=== PATIENT | male | born 1960 | race Caucasian/White ===

== ENCOUNTER 2023-11-03 14:34 | Emergency (ER) | payer SELFPAY ==
[2023-11-03 14:48] VITALS: BP 157/88; PULSE 84; RESP 16; TEMP 36.9; O2SAT 98
[2023-11-03 14:51] VITALS: BP 157/88; PULSE 84; RESP 16; TEMP 36.9; O2SAT 98
--- NOTE | 2023-11-03 15:11 | ED.GENADULT ---
HPI - General Adult General Chief complaint: Recheck/Abnormal Lab/Rx Stated complaint: Medication refill Time Seen by Provider: 11/03/23 15:08 Source: patient and RN notes reviewed Mode of arrival: ambulatory Limitations: no limitations History of Present Illness HPI narrative: Patient presents today requesting refills on his hydrochlorothiazide and lisinopril. States he has been out of his hydrochlorothiazide for 1 week and he has 2 more weeks of his lisinopril. States he has been let go from his PCPs office because they said he missed an appointment, but he states he did not as it was canceled by the office. He needs to find a new PCPs office, which he is trying to. Related Data Home Medications Medication Instructions Recorded Confirmed amlodipine 10 mg tablet mg 11/03/23 hydrochlorothiazide 25 mg tablet mg 11/03/23 lisinopril 40 mg tablet mg 11/03/23 Allergies Allergy/AdvReac Type Severity Reaction Status Date / Time cephalexin Allergy Intermediate HIVES Verified 11/03/23 14:49 Review of Systems Review of Systems: CONSTITUTIONAL: Denies body aches, fever, chills, or sweats. EYES: Denies visual changes, redness, or discharge. ENT: Denies rhinorrhea, congestion, sore throat, or otalgia. CARDIOVASCULAR: Denies chest pain, palpitations, or edema. RESPIRATORY: Denies cough or dyspnea. GASTROINTESTINAL: Denies abdominal pain, nausea, vomiting, or diarrhea. GENITOURINARY: Denies dysuria or hematuria. SKIN: Denies rash, itching, or wounds. MUSCULOSKELETAL: Denies back pain, joint pain, or myalgia. NEUROLOGIC: Denies headache, numbness, tingling, or weakness. PSYCH: Denies depression or anxiety. [facility] Past Medical History Medical History (Updated 11/03/23 @ 15:16 by Claudia Rick, [facility], ) Hypertension Comments At time of signature, I have reviewed and agree with nursing past medical, surgical, social and family history unless otherwise noted. Please see nursing chart for further information. There is no relevant family history pertinent to the presenting complaint Exam Narrative: GENERAL: Well-appearing, well-nourished, and in no acute distress. HEAD: Normocephalic, atraumatic. EYES: EOMI. No redness or drainage. Conjunctivae normal. ENT: Mucous membranes pink and moist. NECK: Normal AROM. CHEST: No respiratory distress. EXTREMITIES: Normal range of motion. No edema. SKIN: Warm, dry, no rash. Capillary refill normal. Normal skin turgor. NEURO: No focal deficits. Alert and oriented x3. Gait steady. PSYCH: Normal affect. No signs of depression or anxiety. Course Course Level of Care: Express Care Visit Vital Signs Vital signs: Vital Signs Temperature 98.4 F 11/03/23 14:48 Pulse Rate 84 11/03/23 14:48 Respiratory Rate 16 11/03/23 14:48 Blood Pressure 157/88 H 11/03/23 14:48 Pulse Oximetry 98 11/03/23 14:48 Oxygen Delivery Room Air 11/03/23 14:48 Temperature 98.4 F 11/03/23 14:51 Pulse Rate 84 11/03/23 14:51 Respiratory Rate 16 11/03/23 14:51 Blood Pressure 157/88 H 11/03/23 14:51 Pulse Oximetry 98 11/03/23 14:51 Oxygen Delivery Room Air 11/03/23 14:51 Reviewed Medical Decision Making MDM Narrative Medical decision making narrative: Will give patient refills of his hydrochlorothiazide lisinopril. States he is searching for any PCP, and will likely make an appointment with a doctor his son sees. Differential Diagnosis Differential Diagnosis: Hypertension, medication refill Vital Signs Vital Signs: Vital Signs Temperature 98.4 F 11/03/23 14:48 Pulse Rate 84 11/03/23 14:48 Respiratory Rate 16 11/03/23 14:48 Blood Pressure 157/88 H 11/03/23 14:48 Pulse Oximetry 98 11/03/23 14:48 Oxygen Delivery Room Air 11/03/23 14:48 Temperature 98.4 F 11/03/23 14:51 Pulse Rate 84 11/03/23 14:51 Respiratory Rate 16 11/03/23 14:51 Blood Pressure 157/88 H 11/03/23 14:51 Pulse Oximetry 98 11/03/23 1
== END 2023-11-03 15:21 | disposition home or self-care (01) ==
PROVIDERS: Emergency Provider Nurse Practitioner
DX: Z76.0 Encounter for issue of repeat prescription (principal); I10 Essential (primary) hypertension; Z79.899 Other long term (current) drug therapy
CPT/HCPCS: 99211; G0463

== ENCOUNTER 2023-12-22 12:42 | Emergency (ER) | payer BC, SELFPAY ==
[2023-12-22 12:54] VITALS: BP 141/95; PULSE 97; RESP 16; TEMP 37.2; O2SAT 97
--- NOTE | 2023-12-22 12:59 | ED.GENADULT ---
HPI - General Adult General Chief complaint: Unspecified Stated complaint: medication refill Time Seen by Provider: 12/22/23 12:59 Source: patient Mode of arrival: ambulatory Limitations: no limitations History of Present Illness HPI narrative: 63 yo M here for medication refill. Needs his BP meds refilled. Has appt with new provider in December, Sharmin Varela. No chest pain or shortness of breath today. All systems reviewed and negative except as noted above. Related Data Home Medications Medication Instructions Recorded Confirmed amlodipine 10 mg tablet 10 mg PO DAILY 12/22/23 12/22/23 Allergies Allergy/AdvReac Type Severity Reaction Status Date / Time cephalexin Allergy Intermediate HIVES Verified 12/22/23 12:52 Review of Systems Review of Systems: CONSTITUTIONAL: Denies fever, chills, or sweats. EYES: Denies visual changes, redness, or discharge. ENT: Denies rhinorrhea, congestion, sore throat, or otalgia. CARDIOVASCULAR: Denies chest pain, palpitations, or edema. RESPIRATORY: Denies cough or dyspnea. GASTROINTESTINAL: Denies abdominal pain, nausea, vomiting, or diarrhea. GENITOURINARY: Denies dysuria or hematuria. SKIN: Denies rash or itching. MUSCULOSKELETAL: Denies back pain, joint pain, or myalgia. NEUROLOGIC: Denies headache, numbness, or weakness. PSYCHIATRIC: Denies anxiety or depression. All other systems reviewed are negative, except as documented in HPI. [facility] Past Medical History Medical History (Updated 12/22/23 @ 13:02 by Juju Stewart NP) Hypertension Comments At time of signature, agree with nursing past medical, surgical, social and family history. There is no relevant family history pertinent to the presenting complaint. Exam Narrative: GENERAL: This is a well-nourished, well-developed patient, in no apparent distress. HEAD: normocephalic, atraumatic. EYES: PERRL. Sclera clear/white. Vision is grossly intact. EARS: External ears normal NOSE: External nose normal NECK: Neck supple, non-tender without lymphadenopathy, masses or thyromegaly. CARDIOVASCULAR: Regular rate and rhythm without murmurs, gallops, or rubs. RESPIRATORY: Clear to auscultation. Breath sounds equal bilaterally. No wheezes, rales, or rhonchi. SKIN: warm, Dry, intact with no suspicious lesions or rash, good texture and turgor. NEURO: awake, alert, and oriented to person, place and time. There were no obvious focal neurologic abnormalities. EXTREMITIES: No joint tenderness, effusion, or edema noted. Course Course Level of Care: Express Care Visit Vital Signs Vital signs: Vital Signs Temperature 37.2 C 12/22/23 12:54 Pulse Rate 97 12/22/23 12:54 Respiratory Rate 16 12/22/23 12:54 Blood Pressure 141/95 H 12/22/23 12:54 Pulse Oximetry 97 12/22/23 12:54 Oxygen Delivery Room Air 12/22/23 12:54 Temperature 37.2 C 12/22/23 12:54 Pulse Rate 97 12/22/23 12:54 Respiratory Rate 16 12/22/23 12:54 Blood Pressure 141/95 H 12/22/23 12:54 Pulse Oximetry 97 12/22/23 12:54 Oxygen Delivery Room Air 12/22/23 12:54 reviewed Medical Decision Making MDM Narrative Medical decision making narrative: Patient is aware of diagnosis, understands and agrees to treatment plan. Anticipatory guidance given. Patient agrees to follow-up as directed and is aware of reasons to seek care at the emergency department. Portions of this record may have been created with voice recognition software Vital Signs Vital Signs: Vital Signs Temperature 37.2 C 12/22/23 12:54 Pulse Rate 97 12/22/23 12:54 Respiratory Rate 16 12/22/23 12:54 Blood Pressure 141/95 H 12/22/23 12:54 Pulse Oximetry 97 12/22/23 12:54 Oxygen Delivery Room Air 12/22/23 12:54 Temperature 37.2 C 12/22/23 12:54 Pulse Rate 97 12/22/23 12:54 Respiratory Rate 16 12/22/23 12:54 Blood Pressure 141/95 H 12/22/23 12:54 Pulse Oximetry 97 12/22/23 12:54 Oxygen Deli
== END 2023-12-22 13:06 | disposition home or self-care (01) ==
PROVIDERS: Emergency Provider Nurse Practitioner Family
DX: I10 Essential (primary) hypertension (principal)
CPT/HCPCS: 99211; G0463

== ENCOUNTER 2024-01-20 14:00 | Emergency (ER) | payer BC, SELFPAY ==
[2024-01-20 14:18] VITALS: BP 118/56; PULSE 81; RESP 16; TEMP 36.8; O2SAT 97
--- NOTE | 2024-01-20 14:45 | ED.GENADULT ---
HPI - General Adult General Chief complaint: Unspecified Stated complaint: High Blood Pressure Time Seen by Provider: 01/20/24 14:45 Source: patient Mode of arrival: ambulatory Limitations: no limitations History of Present Illness HPI narrative: 63-year-old male presents needing medication refilled. Patient has appointment with new primary care provider March 19. Patient has been here in the past for medication refills. Patient is having no complaints today. Denies headache, chest pain and shortness of breath. All systems reviewed and negative except as noted above. Related Data Home Medications Medication Instructions Recorded Confirmed amlodipine 10 mg tablet 10 mg PO DAILY 12/22/23 12/22/23 Allergies Allergy/AdvReac Type Severity Reaction Status Date / Time cephalexin Allergy Intermediate HIVES Verified 12/22/23 12:52 Review of Systems Review of Systems: CONSTITUTIONAL: Denies fever, chills, or sweats. EYES: Denies visual changes, redness, or discharge. ENT: Denies rhinorrhea, congestion, sore throat, or otalgia. CARDIOVASCULAR: Denies chest pain, palpitations, or edema. RESPIRATORY: Denies cough or dyspnea. GASTROINTESTINAL: Denies abdominal pain, nausea, vomiting, or diarrhea. GENITOURINARY: Denies dysuria or hematuria. SKIN: Denies rash or itching. MUSCULOSKELETAL: Denies back pain, joint pain, or myalgia. NEUROLOGIC: Denies headache, numbness, or weakness. PSYCHIATRIC: Denies anxiety or depression. All other systems reviewed are negative, except as documented in HPI. [facility] Past Medical History Medical History (Updated 01/20/24 @ 14:50 by Juju Stewart NP) Hypertension Comments At time of signature, agree with nursing past medical, surgical, social and family history. There is no relevant family history pertinent to the presenting complaint. Exam Narrative: GENERAL: This is a well-nourished, well-developed patient, in no apparent distress. HEAD: normocephalic, atraumatic. EYES: PERRL. Sclera clear/white. Vision is grossly intact. EARS: External ears normal NOSE: External nose normal NECK: Neck supple, non-tender without lymphadenopathy, masses or thyromegaly. CARDIOVASCULAR: Regular rate and rhythm without murmurs, gallops, or rubs. RESPIRATORY: Clear to auscultation. Breath sounds equal bilaterally. No wheezes, rales, or rhonchi. SKIN: warm, Dry, intact with no suspicious lesions or rash, good texture and turgor. NEURO: awake, alert, and oriented to person, place and time. There were no obvious focal neurologic abnormalities. EXTREMITIES: No joint tenderness, effusion, or edema noted. Course Course Level of Care: Express Care Visit Vital Signs Vital signs: Vital Signs Temperature 36.8 C 01/20/24 14:18 Pulse Rate 81 01/20/24 14:18 Respiratory Rate 16 01/20/24 14:18 Blood Pressure 118/56 L 01/20/24 14:18 Pulse Oximetry 97 01/20/24 14:18 Oxygen Delivery Room Air 01/20/24 14:18 Temperature 36.8 C 01/20/24 14:18 Pulse Rate 81 01/20/24 14:18 Respiratory Rate 16 01/20/24 14:18 Blood Pressure 118/56 L 01/20/24 14:18 Pulse Oximetry 97 01/20/24 14:18 Oxygen Delivery Room Air 01/20/24 14:18 Reviewed Medical Decision Making MDM Narrative Medical decision making narrative: Patient is aware of diagnosis, understands and agrees to treatment plan. Anticipatory guidance given. Patient agrees to follow-up as directed and is aware of reasons to seek care at the emergency department. Portions of this record may have been created with voice recognition software Vital Signs Vital Signs: Vital Signs Temperature 36.8 C 01/20/24 14:18 Pulse Rate 81 01/20/24 14:18 Respiratory Rate 16 01/20/24 14:18 Blood Pressure 118/56 L 01/20/24 14:18 Pulse Oximetry 97 01/20/24 14:18 Oxygen Delivery Room Air 01/20/24 14:18 Temperature 36.8 C 01/20/24 14:18 Pulse Rate 81 01/20/24 14:18 Respiratory Ra
== END 2024-01-20 14:56 | disposition home or self-care (01) ==
PROVIDERS: Emergency Provider Nurse Practitioner Family
DX: I10 Essential (primary) hypertension (principal); Z76.0 Encounter for issue of repeat prescription
CPT/HCPCS: 99211; 99213; G0463

== ENCOUNTER 2024-12-09 11:40 | Emergency (ER) | payer SELFPAY ==
--- NOTE | ~2024-12-09 | XR_ITS ---
XR chest 2V Ordering provider: Laurence Reyes APRN History: 64 years Male with . cough, SOB, x 3 weeks . Comparison: July 23, 2016 FINDINGS: MEDIASTINUM: The cardiac silhouette is not enlarged. LUNGS: No effusions or pneumothorax. Prominent bronchovascular markings in the lower lobes with minim al opacification in the left perihilar and both lower lobes suggestive of pneumonia. OTHER: No free air under the diaphragm. IMPRESSION: Highly suggestive left perihilar and both lower lobe pneumonia. Follow-up advised. Reviewed, dictated and finalized at location A. ETIC ADVISOR IMPRESSION: Highly suggestive left perihilar and both lower lobe pneumonia. Follow-up advis ed.
--- NOTE | 2024-12-09 11:43 | ED_ITS ---
HPI - URI/Sore Throat General Chief Complaint: Shortness of Breath/Dyspnea Stated Complaint: SOB Time Seen by Provider: 12/09/24 11:41 Source: patient Mode of arrival: ambulatory Limitations: no limitations History of Present Illness HPI Narrative: Patient is a 64-year-old male who presents with 3 weeks of cough and shortness of breath with exertion. Patient states he is a regular every day smoker, a pack a day. However patient states the last few days he has not been able to smoke due to shortness of breath. Denies any fever, chills, nausea, vomiting, diarrhea. Related Data Home Medications ?Medication ?Instructions ?Recorded ?Confirmed ?Last Taken ?Type amlodipine 10 mg tablet 10 mg PO DAILY 12/22/23 12/22/23 Unknown History Allergies Allergy/AdvReac Type Severity Reaction Status Date / Time cephalexin Allergy Intermediate HIVES Verified 12/22/23 12:52 Review of Systems Review of Systems: All systems reviewed & are unremarkable except as noted in HPI and below Constitutional: Constitutional: Denies body ache(s), Denies chills, Denies fatigue, Denies fever(s), Denies headache(s), Denies malaise and Denies weakness Eyes: Eyes: Denies blurry vision, Denies itchy eyes and Denies loss of vision ENT: Denies otalgia, Denies headache(s), Reports nasal congestion, Denies sinus pain and Denies sore throat Cardiovascular: Cardiovascular: Denies chest pain, Denies irregular heart rhythm and Denies dyspnea Respiratory: Respiratory: Reports cough and Denies dyspnea Gastrointestinal: Gastrointestinal: Denies abdominal pain, Denies diarrhea, Denies nausea and Denies vomiting Musculoskeletal: Musculoskeletal: Denies back pain, Denies myalgias and Denies arthralgias Integumentary/Breasts: Skin/Breast: Denies pruritus and Denies rash Neurologic: Denies headache(s), Denies loss of vision and Denies weakness Psychiatric: Psychiatric: Reports no additional psychiatric complaints Endocrine: Endocrine: Denies fatigue Allergic/Immunologic: Allergic/Immunologic: Denies itchy eyes PMFSH Past Medical History Medical History (Updated 12/09/24 @ 13:34 by Laurence Reyes, [facility]) Hypertension Comments At time of signature, agree with nursing past medical, surgical, social and family history. There is no relevant family history pertinent to the presenting complaint. Exam Const: General: cooperative, acute distress mild and respiratory, ill appearing acutely, poor hygiene, well nourished and thin; No confusion Nutritional Appearance: thin Orientation/consciousness: patient oriented x3 Limitations: no limitations HENMT: Head: normal to inspection, normocephalic and atraumatic Ears: hearing grossly normal bilaterally, external ears normal, TM's normal bilaterally, EAC's normal and no periauricular adenopathy Face/Nose/Sinus: Normal external nose present, Abnormal mucous membranes and turbinates present erythematous bilateral and diffuse, normal facial exam, sinuses nontender and face symmetric Face and sinus: normal facial exam, sinuses nontender and face symmetric Mouth: Yes Normal oral and palatal mucosa present, Yes lip normal, Yes tongue normal, Yes Normal salivary glands and ducts present, Yes oropharynx normal and Yes moist mucous membranes Teeth and gingiva: dentition normal Throat: posterior oropharynx normal, tonsils normal and uvula midline Eyes: General: appearance normal, both eyes and all related structures Alignment and Position: alignment normal and position normal Periorbital: periorbital findings normal Eyelids: eyelids normal Pupils: Equal, round and reactive pupils present Neck: Neck: normal visual inspection, full ROM, no lymphadenopathy and supple Chest: Chest palpation & inspection: normal inspection of the chest and normal palpation of entire chest wall Resp: Effort & Inspection: normal respiratory effort, able to speak in co mplete sentences and tachypneic Auscultation: crackles (Course) bilateral in the lower lung simons, no rales, no rhonchi and no wheezes Cardio: Rate: tachycardic Rhythm: regular rhythm Heart sounds: S1 normal heart sound present and S2 normal heart sound present GI: Inspection: normal to inspection Skin: General skin exam: normal color and no rashes or lesions noted Neuro: General: patient oriented x3 and moves all extremities Cranial nerves: Yes Equal, round and reactive pupils present Speech: normal speech Gait exam (Neuro): Normal gait present Extrem: General: normal to inspection, full ROM and no edema Psych: Appearance: grossly normal and well kempt Mental Status: mental st atus grossly normal Speech and movement: Normal speech and movement present Affect: normal affect Attitude: cooperative Thought process: Normal thought process present Course Course Emergency Course: Discharge instructions reviewed with patient, as well as provided in writing per nursing staff. The instructions also include specific and strict return/GO TO THE ER as well as f/u information. All questions have been answered, and the patient deny any further questions with discharge and discharge plan. Portions of this record may have been created with voice recognition software Level of Care: Express Care Visit Reevaluation(s) Reevaluation #1: Re-evaluation after breathing treatment and steroids. Patient is still short of breath with exertion recovers quickly upon rest. Reiterated going to the emergency department if patient is not improving Date: 12/09/24 Time: 13:31 Vital Signs Vital signs: Vital Signs Temperature 37.2 C 12/09/24 11:44 Pulse Rate 105 H 12/09/24 11:44 Respiratory Rate 28 H 12/09/24 11:44 Blood Pressure 126/83 12/09/24 11:44 Pulse Oximetry 91 12/09/24 11:44 Oxygen Delivery Room Air 12/09/24 11:44 Temperature 37.2 C 12/09/24 11:44 Pulse Rate 105 H 12/09/24 11:44 Respiratory Rate 28 H 12/09/24 11:44 Blood Pressure 126/83 12/09/24 11:44 Pulse Oximetry 91 12/09/24 11:44 Oxygen Delivery Room Air 12/09/24 11:44 Reviewed MDM - URI/Sore Throat MDM Narrative Medical decision making narrative: Discussed diagnosis of pneumonia with patient and son. Based on patient's shortness of breath on exertion discussed transfer to hospital. Patient refuses transfer at this time but does state if symptoms worsen he will not hesitate to go to the ER. Son is in agreement and states he will make patient a PCP appoi ntment for this week for follow-up. Patient to receive breathing treatment and IM steroids prior to discharge. Patient to be sent home on dual coverage antibiotics, steroids and inhaler. Discussed nebulizer with son, son is unsure if they have 1 at home. Patient was also given an incentive spirometer to help him take deep breaths. The patient is stable at time of discharge the clinical impression was discussed and the patient was given the opportunity to ask questions, which were addressed as completely as possible given the information available at present. Anticipatory guidance and return to care precautions were discussed and the importance of primary care follow-up was stressed and encouraged. The patient voiced understanding of the plan, indications to return, and the need for follow-up. Differential diagnosis considered: Pneumonia, Mckoy virus, strep pharyngitis, allergic rhinitis, upper respiratory tract infection, sinusitis, rhinosinusitis, nasopharyngitis. viral pharyngitis, otitis media, otitis externa, otitis effusion, foreign body, cerumen impaction, viral syndrome, and influenza.? Exam findings show no acute concerns or changes; patient is non-toxic appearing and is in no distress.? Patient is appropriate for outpatient treatment and follow- up.? Medical Records Attestation: I reviewed the patient's medical records. Lab Data Attestation: I reviewed the patient's lab results. Labs: Lab Results 12/09/24 Range/Units 11:53 POC Urine Color Dark POC Urine Clarity Clear POC Urine pH 5.5 POC Ur Specif [employer] 1.020 POC Urine Protein 2+ (Negative) POC Ur Glucose (UA) Negative (Negative) POC Urine Ketones Trace (Negative) POC Urine Blood Negative (Negative) POC Urine Nitrite Negative (Negative) POC Urine Bilirubin 1+ (Negative) POC Urine Urobilinogen 2.0 POC U Leukocyte Esteras Negative (Negative) POC Influenza A Ag Negative (Negative) POC Influenza B Ag Negative (Negative) POC SARS CoV-2 Ag Negative (Negative) Imaging Data Radiologist's impression: XR chest 2V Ordering provider: Laurence Reyes APRN History: 64 years Male with . cough, SOB, x 3 weeks . Comparison: July 23, 2016 FINDINGS: MEDIASTINUM: The cardiac silhouette is not enlarged. LUNGS: No effusions or pneumothorax. Prominent bronchovascular markings in the lower lobes with minimal opacification in the left perihilar and both lower lobes suggestive of pneumonia. OTHER: No free air under the diaphragm. IMPRESSION: Highly suggestive left perihilar and both lower lobe pneumonia. Follow-up advised. Discharge Plan Discharge Clinical Impression: Pneumonia Qualifiers: Pneumonia type: due to unspecified organism Laterality: bilateral Lung location: lower lobe of lung Qualified Code(s): J18.9 - Pneumonia, unspecified organism Patient Disposition: Home, Self-Care Condition: Stable Instructions: Pneumonia (ED) Additional Instructions: Pneumonia is a lung infection that can cause a fever, cough, and trouble breathing. Please continue all antibiotics as directed until complete. Take steroids in the morning with food. Use albuterol inhaler regularly. Nutrition is important - eat small frequent meals. Get lots of rest and drink fluids. Alternate Tylenol and ibuprofen for fever. Tylenol 650-1000mg by mouth every 4-6 hours. Do not exceed 4000mg in 24 hours. Advil (Ibuprofen) 600 mg by mouth every 6 hours. Do not exceed 2400mg in 24 hours. Call your Primary Care Doctor and make a follow-up appointment in 3 days. If your cough worsens, you develop a fever greater than 103, you develop shaking chills, a fast heartbeat, trouble breathing and/or feel you are are breathing much faster than usual, call your Primary Care Doctor or go to the ER. Make sure you wash your hands frequently. Patient Language: Maldivian Prescriptions: New azithromycin 250 mg tablet See Rx Instructions .ROUTE .COMPLEX Qty: 6 0RF Rx Instructions: For 250 mg dose pack: take 500 mg today (day 1), then 250 mg for 4 days (days 2-5) prednisone 20 mg tablet 40 mg PO DAILY 5 Days Qty: 10 0RF amoxicillin 875 mg tablet 875 mg PO Q12H 10 Days Qty: 20 0RF albuterol sulfate 90 mcg/actuation HFA aerosol inhaler 2 puff inhalation QID PRN (Reason: shortness of breath or wheezing) Qty: 6.7 0RF (DME) Aerochamber MV Spacer See Rx Instructions .Route Qty: 1 0RF Rx Instructions: As directed No Action amlodipine 10 mg tablet 10 mg PO DAILY amlodipine 10 mg tablet 10 mg PO DAILY 30 Days Qty: 30 0RF lisinopril 40 mg tablet 40 mg PO DAILY 30 Days Qty: 30 0RF hydrochlorothiazide 25 mg tablet 25 mg PO DAILY 30 Days Qty: 30 0RF hydrochlorothiazide 25 mg tablet 25 mg PO DAILY Qty: 30 0RF lisinopril 40 mg tablet 40 mg PO DAILY Qty: 30 0RF amlodipine 10 mg tablet 10 mg PO DAILY 60 Days Qty: 60 0RF hydrochlorothiazide 25 mg tablet 25 mg PO DAILY 60 Days Qty: 60 0RF lisinopril 40 mg tablet 40 mg PO DAILY 60 Days Qty: 60 0RF Follow-up/Referrals: Nichole,TAWNYA Dasilva [Primary Care Provider] - 3 Days Time of Disposition: 13:38
[2024-12-09 11:44] VITALS: BP 126/83; PULSE 105; RESP 28; TEMP 37.2; O2SAT 91
[2024-12-09 12:13] LABS: EDCOVIDSCREEN Negative (Negative); EDINFLUASCREEN Negative (Negative); EDINFLUBSCREEN Negative (Negative)
[2024-12-09 12:50] LABS: EDUAAPPEAR Clear; EDUABILI 1+ (Negative); EDUABLOOD Negative (Negative); EDUACOLOR1 Dark; EDUAGLUCOSE Negative (Negative); EDUAKETONE Trace (Negative); EDUALEUKO Negative (Negative); EDUANITRATE Negative (Negative); EDUAPH 5.5; EDUAPROTEIN 2+ (Negative)
[2024-12-09] MEDS: IPRATROPIUM 0.5 MG/ALBUTEROL SULFATE 2.5 MG AMPUL.NEB 3 ML INHALATION (12:52)
[2024-12-09] MEDS: methylPREDNISolone SOD SUCC 125 MG VIAL IM (12:53)
[2024-12-09 13:15] VITALS: PULSE 105; RESP 24; O2SAT 88
[2024-12-09 13:50] VITALS: PULSE 102; RESP 22; O2SAT 96
== END 2024-12-09 13:53 | disposition home or self-care (01) ==
PROVIDERS: Emergency Provider Nurse Practitioner Family; PCP Registered Nurse
DX: J18.9 Pneumonia, unspecified organism (principal); Z20.822 Contact with and (suspected) exposure to COVID-19; F17.200 Nicotine dependence, unspecified, uncomplicated; I10 Essential (primary) hypertension
CPT/HCPCS: 71046; 81003; 87426; 87804; 94640; 99213; G0463; J2919

== ENCOUNTER 2024-12-10 16:50 | Inpatient (IN) | payer BC, SELFPAY ==
[2024-12-10] VITALS (11 sets, daily range): BP systolic 112–143; BP diastolic 77–106; PULSE 86–172; RESP 15–34; TEMP 36.1–36.7; O2SAT 92–97; BMI 21.7
--- NOTE | ~2024-12-10 | XR_ITS ---
Portable chest x-ray Comparison: 12/21/2024 Clinical History: Respiratory failure Findings: Endotracheal tube, NG tube, and left-sided central venous line are in place. There is hazy left basilar airspace disease. There is right apical consolidation. Cardiomediastinal silhouette is stable. Bones and soft tissues are unremarkable. Impression: Left basilar and right apical consolidation. Correlate for multifocal pneumonia. Support tubes, as above. Reviewed, dictated and finalized at [facility]. STANT BOOKKEEPER Impression: Left basilar and right apical consolidation. Correlate for multifocal pneumonia . Support tubes, as above.
--- NOTE | ~2024-12-10 | XR_ITS ---
XR chest 1V portable 12/13/2024 08:39 Indication: Left IJ placement. Procedure: AP portable chest Comparison: Comparison to multiple prior studies sequentially, with oldest reviewed study dated 12/12. Findings: There is developing patchy bilateral airspace disease, compatible with pneumonia. Endotrach eal tube tip 6.6 cm above the uday. NG tube passes into the stomach. Right IJ central line tip in t he SVC. Left IJ central line tip in the caudal aspect of the SVC. Impression: 1: Developing patchy bilateral airspace disease, compatible with pneumonia. Reviewed, dictated and finalized at location A. ET SELLER Impression: 1: Developing patchy bilateral airspace disease, compatible with pneumonia.
--- NOTE | ~2024-12-10 | XR_ITS ---
EXAMINATION: XR chest 1V portable DATE: 12/13/2024 05:40 INDICATION: Pneumonia. Mechanical ventilation. TECHNIQUE: A single frontal view of the chest was obtained. COMPARISON: Chest view 12/12/2024, chest CT 12/10/2024 FINDINGS: The patient is rotated to his left. There are airspace opacities in all lung zones bilatera lly, worst in the upper lobes. No pleural effusion or pneumothorax. The heart size is normal. The end otracheal tube tip is 7.4 cm above the uday. The nasogastric tube tip is beyond the inferior margin of the radiograph, but at least to the stomach. A right upper extremity peripherally inserted centra l venous catheter (PICC) is seen with tip in the right internal jugular vein. IMPRESSION: 1. Stable diffuse lung disease, consistent with pneumonia. 2. PICC tip in abnormal position in the right internal jugular vein. Reviewed, dictated and finalized at location A. TABLE VENDOR
--- NOTE | ~2024-12-10 | XR_ITS ---
Portable chest x-ray Comparison: 12/17/2024 Clinical History: Respiratory failure Findings: Endotracheal tube, NG tube, and left-sided central venous line are in satisfactory positio ns. Extensive hazy bibasilar airspace disease, right lung worse than left. Cardiomediastinal silhoue tte is stable. Bones and soft tissues are unremarkable. Impression: Extensive hazy pulmonary disease, right lung worse than left. Correlate for bilateral pneumonia versu s asymmetric pulmonary edema. Support tubes, as above. Reviewed, dictated and finalized at location M. OL MOTHER Impression: Extensive hazy pulmonary disease, right lung worse than left. Correlate for keegan ateral pneumonia versus asymmetric pulmonary edema. Support tubes, as above.
--- NOTE | ~2024-12-10 | XR_ITS ---
CHEST RADIOGRAPH CLINICAL HISTORY: Pneumonia, mechanical ventilation . COMPARISON: 12/14/2024 TECHNIQUE: Single portable view of the chest. FINDINGS Left internal jugular central venous catheter tip projecting over the proximal right atrium. Endotracheal tube is identified with its tip projecting approximately 5 cm above the base of the jennifer na. Nasogastric tube identified with its tip extending below the left hemidiaphragm, presumably within th e stomach. Interval removal of the right upper extremity PICC line which was coiled in the right internal jugula r vein. The remainder of the cardiomediastinal silhouette is otherwise unremarkable. Patchy groundglass opacification detected bilaterally, with an upper lobe distribution, for which mul tifocal pneumonia is suspected. IMPRESSION: Findings suggesting multifocal pneumonia. Supportive lines and tubes in good position. Reviewed, dictated and finalized at location A. RINTENDENT TRANSPORTATION
--- NOTE | ~2024-12-10 | XR_ITS ---
EXAMINATION: XR chest 1V portable DATE: 12/20/2024 07:51 INDICATION: Respiratory failure. TECHNIQUE: A single frontal view of the chest was obtained on 2 radiographs. COMPARISON: Chest single view 12/19/2024, chest CT 12/15/2024 FINDINGS: There are patchy airspace opacities in all lung zones bilaterally. There is a small left pl eural effusion. No pneumothorax. The heart size is normal. The endotracheal tube tip is 4.0 cm above the uday. A left internal jugular central venous catheter is seen with tip at the superior cavoatri al junction. The nasogastric tube tip is in the stomach. IMPRESSION: 1. Stable diffuse lung disease, consistent with pneumonia. 2. Stable small left pleural effusion. Reviewed, dictated and finalized at location B. RE D'
--- NOTE | ~2024-12-10 | CT_ITS ---
EXAMINATION: CT brain wo con DATE: 12/27/2024 21:57 INDICATION: Altered mental status. TECHNIQUE: Computed tomography (CT) of the head was performed without intravenous contrast. The mA wa s adjusted according to patient size. Iterative reconstruction technique was employed. The dose-lengt h product was 1362.00 mGy-cm. COMPARISON: Head CT 07/23/2016 FINDINGS: There are scattered areas of low attenuation in the cerebral white matter, which is within normal limits for the patient's age. There is no intracranial hemorrhage, acute infarction, or abnor mal intracranial mass lesion. The ventricles are normal in size. There is mucosal thickening in the p aranasal sinuses. There are small bilateral mastoid effusions. The orbits are normal. IMPRESSION: 1. Normal aging brain. Reviewed, dictated and finalized at location A. OENGRAVING FINISHER IMPRESSION: 1. Normal aging brain.
--- NOTE | ~2024-12-10 | XR_ITS ---
EXAMINATION: XR abdomen gastric tube insert DATE: 12/12/2024 10:22 INDICATION: Intubation. TECHNIQUE: A semiupright view of the abdomen was obtained. COMPARISON: None. FINDINGS: The lower abdomen is excluded. There are no dilated loops of bowel. The nasogastric tube ti p is in the stomach. The endotracheal tube tip is 2.0 cm above the uday. IMPRESSION: 1. Nasogastric tube tip in the stomach. Reviewed, dictated and finalized at location A. ETING SALES MANAGER
--- NOTE | ~2024-12-10 | XR_ITS ---
Portable chest x-ray Comparison: 12/18/2024 Clinical History: Respiratory failure Findings: Endotracheal tube, NG tube, and left-sided central venous line are in place. There is cent ral congestive change and probable mild diffuse interstitial edema. Minimal right pleural effusion pr esent. Cardiomediastinal silhouette is stable. Bones and soft tissues are unremarkable. Impression: Probable mild pulmonary edema pattern with central congestive change and minimal right pleural effusi on. Correlate clinically for infection. Support tubes, as above. Reviewed, dictated and finalized at location . ER PROGRAM COORDINATOR Impression: Probable mild pulmonary edema pattern with central congestive change and minima l right pleural effusion. Correlate clinically for infection. Support tubes, as above.
--- NOTE | ~2024-12-10 | XR_ITS ---
Portable chest x-ray Comparison: 12/16/2024 Clinical History: Pneumonia Findings: Endotracheal tube, NG tube, and left-sided IJ line are in place. Patchy bilateral airspace disease is similar to prior exam. Cardiomediastinal silhouette is stable. Bones and soft tissues ar e unremarkable. Impression: Stable patchy bilateral airspace disease. Correlate for bilateral pneumonia versus possibly pulmonary edema. Stable support tubes. Reviewed, dictated and finalized at [facility]. HETIC CHEMIST Impression: Stable patchy bilateral airspace disease. Correlate for bilateral pneumonia leon parveen possibly pulmonary edema. Stable support tubes.
--- NOTE | ~2024-12-10 | XR_ITS ---
MODIFIED ESOPHAGRAM HISTORY: Prolonged intubation TECHNIQUE: Modified barium esophagram was performed by speech pathologist under radiologist fluorosco pic guidance. This was recorded on tape. The exam was reviewed on 12/23/2024 15:07 PEDIATRIC CLINICAL NURSE SPECIALIST. The DAP for this procedure was 1.7 Gycm2. Fluoroscopy time is 2 minutes 1 second. FINDINGS: Lateral projection of the cervical spine demonstrates moderate degenerative disease, most specifically at the level of C5 and C6 with a large inferior osteophyte. Reduced laryngeal elevation . Laryngeal penetration, which cleared without aspiration. Patient unable to masticate effectively IMPRESSION: Please refer to speech pathologist report for additional findings Reviewed, dictated and finalized at location A. ATRIC CLINICAL NURSE SPECIALIST
--- NOTE | ~2024-12-10 | XR_ITS ---
Portable chest x-ray Comparison: 12/15/2024 Clinical History: Pneumonia Findings: Endotracheal tube, NG tube, and left-sided central venous line are in place. There is patc hy bilateral airspace consolidation, probably worst in the medial left lower lobe and in the right up per lobe. Cardiomediastinal silhouette is stable. Bones and soft tissues are unremarkable. Impression: Patchy multifocal bilateral pneumonia, as detailed above. Support tubes, as above. Reviewed, dictated and finalized at location . K SORTER Impression: Patchy multifocal bilateral pneumonia, as detailed above. Support tubes, as above.
--- NOTE | ~2024-12-10 | XR_ITS ---
XR chest 1V portable Ordering provider: Linda Griffith MD History: 64 years Male with . Respiratory failure . Comparison: December 09, 2024 FINDINGS: MEDIASTINUM: The cardiac silhouette is not enlarged. LUNGS: No effusions or pneumothorax. Opacification in the right upper lobe is noted. Bilateral patchy opacities are seen. Interstitial thickening is seen bilaterally. OTHER: No free air under the diaphragm. IMPRESSION: Right upper lobe pneumonia. Bilateral patchy opacities suggestive of pneumonia. Underlying pulmonary edema cannot be excluded. Clinical correlation advised. Reviewed, dictated and finalized at location A. TRONIC CONSOLE DISPLAY OPERATOR
--- NOTE | ~2024-12-10 | CT_ITS ---
EXAMINATION: CT diagnostic chest wo con DATE: 12/15/2024 16:27 INDICATION: bilateral infiltrates on mechanical ventilation TECHNIQUE: Computed tomography (CT) of the chest was performed with 100 mL Omnipaque-350 intravenous contrast. Automated exposure control and iterative reconstruction technique were employed. The dose-l ength product was 331.42 mGy-cm. COMPARISON: None. FINDINGS: CHEST: Thoracic aorta: Ascending aorta is dilated to 4.3 cm. Moderate calcification. Lung parenchyma and airways: Endotracheal tube, terminating in good position. Patchy islands of perip heral groundglass opacity and diffuse tree-in-bud opacities scattered centrilobular nodular opacities . Minimal airway debris in the right mainstem bronchus and dependent right lower lobe bronchi. Depend ent atelectasis. Right apical air cysts. Small cavitary lesions in the right upper lobe. Thoracic inlet, axillae and chest wall: No thyroid or soft tissue mass. No axillary lymphadenopathy. Left IJ central line terminating at the cavoatrial junction. Mediastinum: No mass or lymphadenopathy. Heart and pericardium: Normal heart size. No pericardial effusion. Coronary artery calcifications: Moderate. Pleura: Trace bilateral pleural effusions. Upper abdomen: NG tube, in good position. Thoracic bones: No acute osseous finding in the chest. IMPRESSION: Endotracheal tube, left IJ central venous line, NG tube, all in good position. Pulmonary opacities likely representing worsening atypical/viral infection. Small cavitary lesions no elizabeth in the right upper lobe. A component of aspiration could be considered given the presence of airw ay secretions/debris. Trace bilateral pleural effusions. Ascending aortic ectasia. Reviewed, dictated and finalized at location K. UNITY PLACEMENT WORKER IMPRESSION: Endotracheal tube, left IJ central venous line, NG tube, all in good position. Pulmonary opacities likely representing worsening atypical/viral infection. Sma ll cavitary lesions noted in the right upper lobe. A component of aspiration co uld be considered given the presence of airway secretions/debris. Trace bilateral pleural effusions. Ascending aortic ectasia.
--- NOTE | ~2024-12-10 | XR_ITS ---
MODIFIED ESOPHAGRAM HISTORY: Choking TECHNIQUE: Modified barium esophagram was performed on 12/30/2024. I administered fluoroscopy and perfo rmed the exam with speech pathologist. Patient was seated for lateral fluoroscopic imaging for inges tion of thin liquids, pudding, solids and quantified amounts, followed by thin liquids in uncontrolle d amounts. This was recorded on tape. A single fluoroscopic spot image was also recorded. The DAP for this procedure was 1.72 Gycm2. The amount of fluoroscopy time used during this procedure was 2.3 min utes. FINDINGS: Oral stage: Adequate function. Pharyngeal stage: There is transient laryngeal penetration which cleared without aspiration. Cervical/esophageal stage: Adequate function. IMPRESSION: Laryngeal penetration without aspiration. Please correlate with speech pathologist findi ngs and specific feeding recommendations. Reviewed, dictated and finalized at location A. UCT DEVELOPMENT DIRECTOR IMPRESSION: Laryngeal penetration without aspiration. Please correlate with sp eech pathologist findings and specific feeding recommendations.
--- NOTE | ~2024-12-10 | XR_ITS ---
Portable chest x-ray Comparison: 12/22/2024 Clinical History: Respiratory failure Findings: Left-sided central venous line is unchanged. There is probable patchy biapical consolidati on, right worse than left. There is mild haziness at the lung bases. There is patchy interstitial pro minence. Cardiomediastinal silhouette is stable. Bones and soft tissues are unremarkable. Impression: Patchy alveolar and interstitial disease bilaterally. Correlate for patchy pneumonia, with possible u nderlying chronic interstitial disease. Stable support line. Reviewed, dictated and finalized at location M. ICIAN INDUSTRIAL Impression: Patchy alveolar and interstitial disease bilaterally. Correlate for patchy pneu monia, with possible underlying chronic interstitial disease. Stable support line.
--- NOTE | ~2024-12-10 | XR_ITS ---
EXAMINATION: XR chest 1V portable DATE: 12/21/2024 05:56 INDICATION: Respiratory failure TECHNIQUE: frontal view of the chest was obtained. COMPARISON: Chest radiograph dated 12/20/2024 FINDINGS: Scattered airspace opacities throughout both lungs. No pleural effusion or pneumothorax. Heart size i s normal. Nasogastric tube with proximal side-port of the stomach and distal tip collimated off the i nferior margin of the [id number]. Left internal jugular central venous catheter with distal tip at the superior cavoatrial junction. IMPRESSION: 1. Unchanged scattered diffuse bilateral lung disease consistent with pneumonia. Reviewed, dictated and finalized at location A. ORATE SECRETARY IMPRESSION: 1. Unchanged scattered diffuse bilateral lung disease consistent with pneumonia .
--- NOTE | ~2024-12-10 | XR_ITS ---
EXAMINATION: XR chest 1V DATE: 12/28/2024 12:44 INDICATION: Pneumonia. TECHNIQUE: A single frontal view of the chest was obtained. COMPARISON: Chest single view 12/23/2024, chest CT 12/15/2024 FINDINGS: There are patchy airspace opacities in all lung zones bilaterally, worst at the lung apices . No pleural effusion or pneumothorax. The heart size is normal. A left internal jugular central veno us catheter is seen with tip at the superior cavoatrial junction. IMPRESSION: 1. Stable diffuse lung disease, consistent with pneumonia. Reviewed, dictated and finalized at location A. R BUFFER
--- NOTE | ~2024-12-10 | XR_ITS ---
EXAMINATION: XR chest 1V portable DATE: 12/13/2024 07:17 INDICATION: PICC line repositioning. TECHNIQUE: A single frontal view of the chest was obtained. COMPARISON: Chest single view at 5:14 AM FINDINGS: There are airspace opacities in all lung zones bilaterally, worst in right upper lung zone and left lower lung zone. No pleural effusion or pneumothorax. The heart size is normal. The endotrac heal tube tip is 5.6 cm above the uday. The nasogastric tube tip is in the stomach. A right upper e xtremity peripherally inserted central venous catheter (PICC) is seen with tip in the right internal jugular vein. IMPRESSION: 1. PICC tip in abnormal position in the right internal jugular vein. 2. Stable diffuse lung disease, consistent with pneumonia. Reviewed, dictated and finalized at location A. ECTOR SHEET METAL PARTS
--- NOTE | ~2024-12-10 | XR_ITS ---
XR chest ET placement Ordering provider: Benjamin Alvarez MD History: 64 years Male with . intubation . Comparison: December 12, 2024 FINDINGS: MEDIASTINUM: The cardiac silhouette is not enlarged. Endotracheal tube is seen with the tip above the uday by about 5 cm. Nasogastric tube is seen exten ding to the stomach. Congestive elizabeth. LUNGS: No effusions or pneumothorax. Opacification in the right upper lobe. Bilateral patchy opacitie s. Underlying pulmonary edema is not excluded. OTHER: No free air under the diaphragm. IMPRESSION: Right upper lobe pneumonia. Bilateral patchy opacities suggestive of pneumonia. Underlying pulmonary edema is not excluded.. Reviewed, dictated and finalized at location A. GER OF SOFTWARE
--- NOTE | ~2024-12-10 | XR_ITS ---
EXAMINATION: XR chest 1V portable DATE: 12/16/2024 12:22 INDICATION: Post bronchoscopy TECHNIQUE: frontal view of the chest was obtained. COMPARISON: Chest radiograph dated 12/16/2024 at 5:[address] dated 12/15/2024 FINDINGS: Endotracheal tube tip 4.8 cm above the uday. Nasogastric tube with distal tip in the body the stoma ch and distal tip collimated off the study. Left internal jugular central venous catheter with distal tip near the superior cavoatrial junction. No significant interval change in coarse reticular and patchy airspace opacities throughout both lung s most prominent apices and at the left lung base. No pleural effusion or pneumothorax. The cardiomed iastinal silhouette is normal. Visualized bones and soft tissues are unremarkable. IMPRESSION: 1. No change in diffuse bilateral lung disease consistent with pneumonia. Reviewed, dictated and finalized at location A. AL ACCOUNT MANAGER
--- NOTE | ~2024-12-10 | XR_ITS ---
XR chest PICC line Ordering provider: Benjamin Alvarez MD History: 64 years Male with . PICC line insertion . Comparison: December 12, 2024 at 10:11 AM FINDINGS: Right central line with the tip overlying the superior vena cava. Other appearances are unchanged fro m previous examination. IMPRESSION: No change from previous examination. Reviewed, dictated and finalized at location A. TRICAL MECHANICAL TECHNICIAN
--- NOTE | ~2024-12-10 | CT_ITS ---
EXAMINATION: CTA chest PE protocol DATE: 12/10/2024 19:15 INSTRUCTIONAL SYSTEMS SPECIALIST INDICATION: Cough and shortness of breath TECHNIQUE: Computed tomographic angiography (CTA) of the chest was performed with 100 mL Omnipaque-35 0 intravenous contrast. The dose-length product was 379.19 mGy-cm. Maximum intensity projection 3D-re constructions of the aorta and other arteries were constructed by the technologist on a separate work station. COMPARISON: None. FINDINGS: No filling defect is identified within the main or proximal pulmonary arteries. The main pulmonary artery is not enlarged. The densely calcified thoracic aorta is otherwise unremarkable, without dilatation or dissection. Patchy groundglass opacification detected bilaterally, with primarily an upper lobe distribution for which multifocal pneumonia is suspected. No acute fracture. No lytic or blastic lesions. IMPRESSION: No pulmonary embolism. No aortic dissection. Multifocal pneumonia. Reviewed, dictated and finalized at location A. RUCTIONAL SYSTEMS SPECIALIST
--- NOTE | ~2024-12-10 | MR_ITS ---
EXAMINATION: MR brain/brain stem wo con DATE: 12/28/2024 12:43 INDICATION: Altered mental status. TECHNIQUE: Magnetic resonance imaging (MRI) of the brain and brainstem was performed without intraven ous contrast. COMPARISON: Head CT 12/27/2024 FINDINGS: There are scattered areas of nonspecific increased T2-weighted signal intensity in the cere bral white matter, which is within normal limits for the patient's age. There is no intracranial hemo rrhage, acute infarction, or abnormal intracranial mass lesion. The ventricles are normal in size. Th e orbits are normal. There is mucosal thickening and fluid in the paranasal sinuses. There are bilate ral mastoid effusions. IMPRESSION: 1. Normal aging brain. Reviewed, dictated and finalized at location A. SHIFT MGR IMPRESSION: 1. Normal aging brain.
--- NOTE | ~2024-12-10 | XR_ITS ---
EXAMINATION: XR chest 1V portable DATE: 12/31/2024 13:26 INDICATION: Pneumonia. TECHNIQUE: A single frontal view of the chest was obtained. COMPARISON: Chest single view 12/28/2024 FINDINGS: There are patchy airspace opacities in all lung zones bilaterally, worst at right lung apex . No pleural effusion or pneumothorax. The heart size is normal. A left internal jugular central veno us catheter is seen with tip at the superior cavoatrial junction. IMPRESSION: 1. Diffuse lung disease with mild improvement, consistent with pneumonia. Reviewed, dictated and finalized at location A. MENT EXAMINER
--- NOTE | ~2024-12-10 | XR_ITS ---
EXAMINATION: XR chest 1V portable DATE: 12/14/2024 05:50 INDICATION: Pneumonia. Mechanical ventilation. TECHNIQUE: A single frontal view of the chest was obtained. COMPARISON: Chest single view 12/13/2024, chest CT 12/10/2024 FINDINGS: There are patchy airspace opacities in all lung zones bilaterally with an upper lung predom inance. No pleural effusion or pneumothorax. The heart size is normal. The endotracheal tube tip is 4 .2 cm above the uday. The nasogastric tube tip is in the stomach. A left internal jugular central v enous catheter is seen with tip in the proximal right atrium. A right upper extremity peripherally in serted central venous catheter (PICC) is seen loops into the right internal jugular vein with tip at the junction of the right internal jugular vein and right brachiocephalic vein. IMPRESSION: 1. Stable diffuse lung disease, consistent with pneumonia. 2. The PICC loops into the right internal jugular vein with tip at the junction of the right internal jugular vein and right brachiocephalic vein. Reviewed, dictated and finalized at location A. EHOUSE OPERATOR
--- NOTE | ~2024-12-10 | XR_ITS ---
EXAMINATION: XR abdomen/kub 1V DATE: 12/18/2024 14:55 INDICATION: Abdominal distention. TECHNIQUE: A supine view of the abdomen on 2 radiographs was obtained. COMPARISON: Abdomen radiographs 02/20/2015 FINDINGS: There are no dilated loops of bowel. There is a small volume of stool in the colon. The kate ogastric tube tip is in the stomach. IMPRESSION: 1. Normal bowel gas pattern. Reviewed, dictated and finalized at location B. OPERATIONS MANAGER
--- NOTE | 2024-12-10 17:00 | ECG_ITS ---
Test Date: 2024-12-10 17:08:10 Measurements Intervals [place] Rate: 166 P: 0 WA: 0 QRS: -45 QRSD: 86 T: 71 QT: 247 QTc: 411 Interpretive Statements SUPRAVENTRICULAR TACHYCARDIA LEFT ANTERIOR FASCICULAR BLOCK [QRS AXIS <= -45, QR IN I, RS IN II] No previous ECG available for comparison Electronically Signed On 12-11-2024 14:16:06 [employer]GRICULT[employer] ENGINEERING TECHNOLOGIST by Gale Carlisle M.D.
[2024-12-10 17:22] LABS: Basophils Absolute Auto 0.1 K/mm3 (0.0-0.1); Basophils Percent Auto 0.5 % (0.2-1.2); Eosinophils Absolute Auto 0.2 K/mm3 (0-0.3); Eosinophils Percent Auto 2.3 % (0-4.4); Hematocrit 40.6 % (42.0-52.0); Hemoglobin 14.4 g/dL (14.0-18.0); Immature Granulocyte Absolute 0.07 K/mm3 (0.00-0.031); Immature Granulocyte Percent A 0.7 % (0-0.5); Lymphocytes Absolute Auto 0.44 K/mm3 (0.9-3.2); Lymphocytes Percent Auto 4.4 % (18.3-44.2); Mean Corpuscular HGB Conc 35.5 g/dl (32-36); Mean Corpuscular Hemoglobin 33.2 pg (26-34); Mean Corpuscular Volume 93.5 fl (80-100); Mean Platelet Volume 9.2 fl (7.4-10.4); Monocytes Absolute Auto 0.7 K/mm3 (0.1-0.6); Monocytes Percent Auto 6.6 % (2.6-8.5); Neutrophils Absolute Auto 8.6 K/mm3 (1.3-6.7); Neutrophils Percent Auto 85.5 % (45.5-73.1); Platelet Count Result 378 k/mm3 (150-375); Red Blood Count 4.34 M/mm3 (4.6-6.20); Red Cell Distribution Width 12.8 % (11.5-14.5); White Blood Count 10.1 K/mm3 (4.5-10.0)
[2024-12-10 17:36] LABS: INR 1.1; Partial Thromboplastin Time 26.9 Seconds (22.3-36.8); Prothrombin Time 14.2 Seconds (11.1-14.7)
--- NOTE | 2024-12-10 17:41 | ED.RECABL ---
HPI - Recheck/Abnormal Lab/Rx General Chief Complaint: Recheck/Abnormal Lab/Rx <Jg Alfaro MD - Last Filed: 12/10/24 19:02> Stated Complaint: told to come and be admitted <Jg Alfaro MD - Last Filed: 12/10/24 19:02> Time Seen by Provider: 12/10/24 17:40 <Jg Alfaro MD - Last Filed: 12/10/24 19:02> Source: patient <Jg Alfaro MD - Last Filed: 12/10/24 19:02> History of Present Illness HPI narrative: 64 YEARS OLD WHITE MALE CAME TO THE EMERGENCY ROOM BY PRIVATE CAR FROM HOME COMPLAINING OF SHORTNESS OF BREATH, COUGHING FOR THE LAST 3 MONTHS. WAS SEEN YESTERDAY WITH A DIAGNOSIS OF PNEUMONIA. PATIENT DENIES ANY FEVER, CHILLS, CHEST PAIN OR BACK PAIN. <Jg Alfaro MD - Last Filed: 12/10/24 19:02> Related Data Home Medications: Home Medications ?Medication ?Instructions ?Recorded ?Confirmed ?Last Taken ?Type amlodipine 10 mg tablet 10 mg PO DAILY 12/22/23 12/22/23 Unknown History <Jg Alfaro MD - Last Filed: 12/10/24 19:02> Allergies/Adverse Reactions: Allergies Allergy/AdvReac Type Severity Reaction Status Date / Time cephalexin Allergy Intermediate HIVES Verified 12/10/24 17:55 <Jg Alfaro MD - Last Filed: 12/10/24 19:02> Review of Systems Review of Systems: All systems reviewed & are unremarkable except as noted in HPI and below <Jg Alfaro MD - Last Filed: 12/10/24 19:02> PMFSH Past Medical History Medical History: Medical History Hypertension <Jg Alfaro MD - Last Filed: 12/10/24 19:02> Exam Narrative: GENERAL APPEARANCE: WELL-DEVELOPED, WELL-NOURISHED SKIN: NORMAL COLOR, POOR HYGIENIC CONDITION HEAD: NORMOCEPHALIC, NONTRAUMATIC EYES: CLEAR CONJUNCTIVA ENT: OROPHARYNX NORMAL, EARS NORMAL, NOSE NORMAL NECK: SUPPLE, NONTENDER CHEST AND RESPIRATORY: AIRWAY PATENT, NO RESPIRATORY DISTRESS, NO ACCESSORY MUSCLE USE, DIMINUTION OF AIR ENTRY BILATERALLY, FEW SCATTERED RHONCHI HEART: TACHYCARDIA ABDOMEN: SOFT, NONTENDER, NO ORGANOMEGALY, QUIET BOWEL SOUNDS VASCULAR: NORMAL PERIPHERAL PULSES, NORMAL CAPILLARY REFILL. MUSCULOSKELETAL: NORMAL RANGE OF MOTION, NONTENDER BACK NEUROLOGIC: ALERT AND ORIENTED ?3, HOME HEALTH CLINICIAN IS NORMAL TESTED, NO GROSS MOTOR DEFICIT <Jg Alfaro MD - Last Filed: 12/10/24 19:02> Course Course Emergency Course: Ivonne 21:57 -patient signed out pending CT PE. 64 old male presenting with shortness of breath. While the patient says been going going for last 3 months has gotten acutely worse in the last several days. He is now too short of breath to smoke. He was seen at urgent care and diagnosed with pneumonia. He received breathing treatments and steroids but they recommended he come to the ER. Patient's CT PE was negative for pulmonary embolism but did show multifocal pneumonia. Viral swabs were added on and he is positive for influenza A. He has been started on renally dosed Tamiflu. Throughout his stay in the ED he has had paroxysmal tachycardia at 145-150. (svt vs afib vs aflutter) Patient has been an auto-converting back to atrial fibrillation w/ frequent pvcs. He received 5 mg of metoprolol IV x3 but is still having episodes of tachycardia.) Patient given a push of diltiazem and then started on a Cardizem drip. Given 1 dose of lovenox He will be admitted the hospital for further management his multifocal pneumonia secondary influenza and atrial fibrillation. <Greyson Cedillo MD - Last Filed: 12/10/24 22:14> Consultations Consultation #1: DR CEDILLO AT [facility], WAITING FOR LABS AND IMAGING. <Jg Alfaro MD - Last Filed: 12/10/24 19:02> Date: 12/10/24 <Jg Alfaro MD - Last Filed: 12/10/24 19:02> Time: 19:02 <Jg Alfaro MD - Last Filed: 12/10/24 19:02> Vital Signs Vital signs: Vital Signs Temperature 97.0 F L 12/10/24 16:54 Pulse Rate 98 12/10/24 16:54 Respiratory Rate 20 12/10/24 16:54 Blood Pressure 124/93 H 12/10/24 16:54 Pulse Oximetry 92 12/10/24 16:54 Oxygen Delivery Room Air 12/10/24 16:54 Temperature 97.0 F L 12/10/24 16:54 Pulse Rate 88 12/10/24 20:00 Respiratory Rate 21 H 12/10/24 20:00 Blood Pressure 138/101 H 12/10/24 20:00 Pulse Oximetry 94 12/10/24 20:00 Oxygen Delivery Room Air 12/10/24 16:54 <Jg Alfaro MD - Last Filed: 12/10/24 19:02> Vital Signs Temperature 97.0 F L 12/10/24 16:54 Pulse Rate 98 12/10/24 16:54 Respiratory Rate 20 12/10/24 16:54 Blood Pressure 124/93 H 12/10/24 16:54 Pulse Oximetry 92 12/10/24 16:54 Oxygen Delivery Room Air 12/10/24 16:54 Temperature 97.0 F L 12/10/24 16:54 Pulse Rate 88 12/10/24 20:00 Respiratory Rate 21 H 12/10/24 20:00 Blood Pressure 138/101 H 12/10/24 20:00 Pulse Oximetry 94 12/10/24 20:00 Oxygen Delivery Room Air 12/10/24 16:54 <Greyson Cedillo MD - Last Filed: 12/10/24 22:14> MDM - Recheck/Abnormal Lab/Rx MDM Narrative Medical decision making narrative: PATIENT REFERRED TO THE EMERGENCY ROOM BY HIS FAMILY PHYSICIAN FOR UNKNOWN REASON. VITAL SIGN SHOWING BLOOD PRESSURE 124/93, HEART RATE 98, RESPIRATION 20, TEMPERATURE 36.1? SATURATION ON ROOM AIR 92%. ON ARRIVAL TO THE ED, FEW MINUTES LATER PATIENT HEART RATE STARTED GOING UP ROUGHLY 106 6 BEATS PER MINUTE, EKG SHOWING SVT, FEW MINUTES LATER PATIENT CONVERTED TO NORMAL SINUS RHYTHM WITH FREQUENT PVCS THEN WENT UP AGAIN TO VERSUS SINUS TACHYCARDIA. SUBSEQUENTLY PATIENT STARTED HAVING DIARRHEA IN THE ED. <Jg Alfaro MD - Last Filed: 12/10/24 19:02> PATIENT REFERRED TO THE EMERGENCY ROOM BY HIS FAMILY PHYSICIAN FOR UNKNOWN REASON. VITAL SIGN SHOWING BLOOD PRESSURE 124/93, HEART RATE 98, RESPIRATION 20, TEMPERATURE 36.1? SATURATION ON ROOM AIR 92%. ON ARRIVAL TO THE ED, FEW MINUTES LATER PATIENT HEART RATE STARTED GOING UP ROUGHLY 16 6 BEATS PER MINUTE, EKG SHOWING SVT, FEW MINUTES LATER PATIENT CONVERTED TO NORMAL SINUS RHYTHM WITH FREQUENT PVCS THEN WENT UP AGAIN TO VERSUS SINUS TACHYCARDIA. SUBSEQUENTLY PATIENT STARTED HAVING DIARRHEA IN THE ED. <Greyson Cedillo MD - Last Filed: 12/10/24 22:14> Lab Data Result diagrams: 12/10/24 17:14 12/10/24 17:14 <Jg Alfaro MD - Last Filed: 12/10/24 19:02> Labs: Lab Results 12/10/24 12/10/24 12/10/24 Range/Units 17:14 18:48 20:31 WBC 10.1 H (4.5-10.0) K/mm3 RBC 4.34 L (4.6-6.20) M/mm3 Hgb 14.4 (14.0-18.0) g/dL Hct 40.6 L (42.0-52.0) % MCV 93.5 (80-100) fl MCH 33.2 (26-34) pg MCHC 35.5 (32-36) g/dl RDW 12.8 (11.5-14.5) % Plt Count 378 H (150-375) k/mm3 MPV 9.2 (7.4-10.4) fl Immature Gran % (Auto) 0.7 H (0-0.5) % Neut % (Auto) 85.5 H (45.5-73.1) % Lymph % (Auto) 4.4 L (18.3-44.2) % Woods % (Auto) 6.6 (2.6-8.5) % Eos % (Auto) 2.3 (0-4.4) % Baso % (Auto) 0.5 (0.2-1.2) % Lymph # (Auto) 0.44 L (0.9-3.2) K/mm3 Woods # (Auto) 0.7 H (0.1-0.6) K/mm3 Eos # (Auto) 0.2 (0-0.3) K/mm3 Baso # (Auto) 0.1 (0.0-0.1) K/mm3 Abs Immat Gran (auto) 0.07 H (0.00-0.031) K/mm3 Absolute Neuts (auto) 8.6 H (1.3-6.7) K/mm3 Absolute Nucleated RBC 0.000 (0.0-0.012) K/mm3 Nucleated RBC % 0.0 (0.0-0.2) % PT 14.2 (11.1-14.7) Seconds INR 1.1 APTT 26.9 (22.3-36.8) Seconds D-Dimer 2.28 H (<0.48) ug/mL Sodium 132 L (137-145) mmol/L Potassium 3.6 (3.4-5.0) mmol/L Chloride 93 L (98-107) mmol/L Carbon Dioxide 26 (22-30) mmol/L Anion Gap 13 H (4-12) mmol/L BUN 61 H (9-20) mg/dL Creatinine 1.26 (0.7-1.3) mg/dL Estim Creat Clear Calc 54 ml/min Estimated GFR 58 L (59 - ) Glucose 122 H (65-110) mg/dL Calcium 9.5 (8.4-10.2) mg/dL Total Bilirubin 2.0 H (0.2-1.3) mg/dL AST 88 H (17-59) U/L ALT 60 H (6-50) U/L Alkaline Phosphatase 89 (38-126) U/L Troponin I 0.014 (0.000-0.034) ng/mL C-Reactive Protein 19.7 H (<1.0) mg/dL NT-Pro-B Natriuret Pep 2990 H (19.9-100) pg/mL Total Protein 8.0 (6.3-8.2) g/dL Albumin 3.8 (3.5-5.1) g/dL Procalcitonin ng/mL Urine Color Yellow (Yellow) Urine Appearance Clear (Clear) Urine pH 5.0 (5.0-9.0) Ur Specific [place] 1.017 (1.001-1.035) Urine Protein Negative (Negative) mg/dL Urine Glucose (UA) Negative (Negative) mg/dL Urine Ketones Trace H (Negative) mg/dL Ur Blood (Man) Negative (Negative) Urine Nitrate Negative (Negative) Urine Bilirubin Negative (Negative) Urine Urobilinogen 1.0 (<2.0) mg/dL Leukocyte Esterase Rfl Negative (Negative) DAVE/UL Influenza A (RT-PCR) Positive A (Negative) Influenza B (RT-PCR) Negative (Negative) RSV (RT-PCR) Negative (Negative) SARS-CoV-2 RNA (RT-PCR) Negative (Negative) 12/10/24 Range/Units 20:38 WBC (4.5-10.0) K/mm3 RBC (4.6-6.20) M/mm3 Hgb (14.0-18.0) g/dL Hct (42.0-52.0) % MCV (80-100) fl MCH (26-34) pg MCHC (32-36) g/dl RDW (11.5-14.5) % Plt Count (150-375) k/mm3 MPV (7.4-10.4) fl Immature Gran % (Auto) (0-0.5) % Neut % (Auto) (45.5-73.1) % Lymph % (Auto) (18.3-44.2) % Woods % (Auto) (2.6-8.5) % Eos % (Auto) (0-4.4) % Baso % (Auto) (0.2-1.2) % Lymph # (Auto) (0.9-3.2) K/mm3 [place] # (Auto) (0.1-0.6) K/mm3 Eos # (Auto) (0-0.3) K/mm3 Baso # (Auto) (0.0-0.1) K/mm3 Abs Immat Gran (auto) (0.00-0.031) K/mm3 Absolute Neuts (auto) (1.3-6.7) K/mm3 Absolute Nucleated RBC (0.0-0.012) K/mm3 Nucleated RBC % (0.0-0.2) % PT (11.1-14.7) Seconds INR APTT (22.3-36.8) Seconds D-Dimer (<0.48) ug/mL Sodium (137-145) mmol/L Potassium (3.4-5.0) mmol/L Chloride (98-107) mmol/L Carbon Dioxide (22-30) mmol/L Anion Gap (4-12) mmol/L BUN (9-20) mg/dL Creatinine (0.7-1.3) mg/dL Estim Creat Clear Calc ml/min Estimated GFR (59 - ) Glucose (65-110) mg/dL Calcium (8.4-10.2) mg/dL Total Bilirubin (0.2-1.3) mg/dL AST (17-59) U/L ALT (6-50) U/L Alkaline Phosphatase (38-126) U/L Troponin I 0.013 (0.000-0.034) ng/mL C-Reactive Protein (<1.0) mg/dL NT-Pro-B Natriuret Pep (19.9-100) pg/mL Total Protein (6.3-8.2) g/dL Albumin (3.5-5.1) g/dL Procalcitonin 1.3 ng/mL Urine Color (Yellow) Urine Appearance (Clear) Urine pH (5.0-9.0) Ur Specific [place] (1.001-1.035) Urine Protein (Negative) mg/dL Urine Glucose (UA) (Negative) mg/dL Urine Ketones (Negative) mg/dL Ur Blood (Man) (Negative) Urine Nitrate (Negative) Urine Bilirubin (Negative) Urine Urobilinogen (<2.0) mg/dL Leukocyte Esterase Rfl (Negative) DAVE/UL Influenza A (RT-PCR) (Negative) Influenza B (RT-PCR) (Negative) RSV (RT-PCR) (Negative) SARS-CoV-2 RNA (RT-PCR) (Negative) <Jg Alfaro MD - Last Filed: 12/10/24 19:02> Lab Results 12/10/24 12/10/24 12/10/24 Range/Units 17:14 18:48 20:31 WBC 10.1 H (4.5-10.0) K/mm3 RBC 4.34 L (4.6-6.20) M/mm3 Hgb 14.4 (14.0-18.0) g/dL Hct 40.6 L (42.0-52.0) % MCV 93.5 (80-100) fl MCH 33.2 (26-34) pg MCHC 35.5 (32-36) g/dl RDW 12.8 (11.5-14.5) % Plt Count 378 H (150-375) k/mm3 MPV 9.2 (7.4-10.4) fl Immature Gran % (Auto) 0.7 H (0-0.5) % Neut % (Auto) 85.5 H (45.5-73.1) % Lymph % (Auto) 4.4 L (18.3-44.2) % Woods % (Auto) 6.6 (2.6-8.5) % Eos % (Auto) 2.3 (0-4.4) % Baso % (Auto) 0.5 (0.2-1.2) % Lymph # (Auto) 0.44 L (0.9-3.2) K/mm3 [place] # (Auto) 0.7 H (0.1-0.6) K/mm3 Eos # (Auto) 0.2 (0-0.3) K/mm3 Baso # (Auto) 0.1 (0.0-0.1) K/mm3 Abs Immat Gran (auto) 0.07 H (0.00-0.031) K/mm3 Absolute Neuts (auto) 8.6 H (1.3-6.7) K/mm3 Absolute Nucleated RBC 0.000 (0.0-0.012) K/mm3 Nucleated RBC % 0.0 (0.0-0.2) % PT 14.2 (11.1-14.7) Seconds INR 1.1 APTT 26.9 (22.3-36.8) Seconds D-Dimer 2.28 H (<0.48) ug/mL Sodium 132 L (137-145) mmol/L Potassium 3.6 (3.4-5.0) mmol/L Chloride 93 L (98-107) mmol/L Carbon Dioxide 26 (22-30) mmol/L Anion Gap 13 H (4-12) mmol/L BUN 61 H (9-20) mg/dL Creatinine 1.26 (0.7-1.3) mg/dL Estim Creat Clear Calc 54 ml/min Estimated GFR 58 L (59 - ) Glucose 122 H (65-110) mg/dL Calcium 9.5 (8.4-10.2) mg/dL Total Bilirubin 2.0 H (0.2-1.3) mg/dL AST 88 H (17-59) U/L ALT 60 H (6-50) U/L Alkaline Phosphatase 89 (38-126) U/L Troponin I 0.014 (0.000-0.034) ng/mL C-Reactive Protein 19.7 H (<1.0) mg/dL NT-Pro-B Natriuret Pep 2990 H (19.9-100) pg/mL Total Protein 8.0 (6.3-8.2) g/dL Albumin 3.8 (3.5-5.1) g/dL Procalcitonin ng/mL Urine Color Yellow (Yellow) Urine Appearance Clear (Clear) Urine pH 5.0 (5.0-9.0) Ur Specific [place] 1.017 (1.001-1.035) Urine Protein Negative (Negative) mg/dL Urine Glucose (UA) Negative (Negative) mg/dL Urine Ketones Trace H (Negative) mg/dL Ur Blood (Man) Negative (Negative) Urine Nitrate Negative (Negative) Urine Bilirubin Negative (Negative) Urine Urobilinogen 1.0 (<2.0) mg/dL Leukocyte Esterase Rfl Negative (Negative) DAVE/UL Influenza A (RT-PCR) Positive A (Negative) Influenza B (RT-PCR) Negative (Negative) RSV (RT-PCR) Negative (Negative) SARS-CoV-2 RNA (RT-PCR) Negative (Negative) 12/10/24 Range/Units 20:38 WBC (4.5-10.0) K/mm3 RBC (4.6-6.20) M/mm3 Hgb (14.0-18.0) g/dL Hct (42.0-52.0) % MCV (80-100) fl MCH (26-34) pg MCHC (32-36) g/dl RDW (11.5-14.5) % Plt Count (150-375) k/mm3 MPV (7.4-10.4) fl Immature Gran % (Auto) (0-0.5) % Neut % (Auto) (45.5-73.1) % Lymph % (Auto) (18.3-44.2) % Woods % (Auto) (2.6-8.5) % Eos % (Auto) (0-4.4) % Baso % (Auto) (0.2-1.2) % Lymph # (Auto) (0.9-3.2) K/mm3 [place] # (Auto) (0.1-0.6) K/mm3 Eos # (Auto) (0-0.3) K/mm3 Baso # (Auto) (0.0-0.1) K/mm3 Abs Immat Gran (auto) (0.00-0.031) K/mm3 Absolute Neuts (auto) (1.3-6.7) K/mm3 Absolute Nucleated RBC (0.0-0.012) K/mm3 Nucleated RBC % (0.0-0.2) % PT (11.1-14.7) Seconds INR APTT (22.3-36.8) Seconds D-Dimer (<0.48) ug/mL Sodium (137-145) mmol/L Potassium (3.4-5.0) mmol/L Chloride (98-107) mmol/L Carbon Dioxide (22-30) mmol/L Anion Gap (4-12) mmol/L BUN (9-20) mg/dL Creatinine (0.7-1.3) mg/dL Estim Creat Clear Calc ml/min Estimated GFR (59 - ) Glucose (65-110) mg/dL Calcium (8.4-10.2) mg/dL Total Bilirubin (0.2-1.3) mg/dL AST (17-59) U/L ALT (6-50) U/L Alkaline Phosphatase (38-126) U/L Troponin I 0.013 (0.000-0.034) ng/mL C-Reactive Protein (<1.0) mg/dL NT-Pro-B Natriuret Pep (19.9-100) pg/mL Total Protein (6.3-8.2) g/dL Albumin (3.5-5.1) g/dL Procalcitonin 1.3 ng/mL Urine Color (Yellow) Urine Appearance (Clear) Urine pH (5.0-9.0) Ur Specific [place] (1.001-1.035) Urine Protein (Negative) mg/dL Urine Glucose (UA) (Negative) mg/dL Urine Ketones (Negative) mg/dL Ur Blood (Man) (Negative) Urine Nitrate (Negative) Urine Bilirubin (Negative) Urine Urobilinogen (<2.0) mg/dL Leukocyte Esterase Rfl (Negative) DAVE/UL Influenza A (RT-PCR) (Negative) Influenza B (RT-PCR) (Negative) RSV (RT-PCR) (Negative) SARS-CoV-2 RNA (RT-PCR) (Negative) <Greyson Cedillo MD - Last Filed: 12/10/24 22:14> Discharge Plan Discharge Clinical Impression: Influenza A, Multifocal pneumonia, Atrial fibrillation <Jg Alfaro MD - Last Filed: 12/10/24 19:02> Patient Disposition: Still a Patient <Jg Alfaro MD - Last Filed: 12/10/24 19:02> Condition: Stable <Jg Alfaro MD - Last Filed: 12/10/24 19:02> Patient Language: Kyrgyz <Jg Alfaro MD - Last Filed: 12/10/24 19:02> Prescriptions: No Action amlodipine 10 mg tablet 10 mg PO DAILY amlodipine 10 mg tablet 10 mg PO DAILY 30 Days Qty: 30 0RF lisinopril 40 mg tablet 40 mg PO DAILY 30 Days Qty: 30 0RF hydrochlorothiazide 25 mg tablet 25 mg PO DAILY 30 Days Qty: 30 0RF azithromycin 250 mg tablet See Rx Instructions .ROUTE .COMPLEX Qty: 6 0RF Rx Instructions: For 250 mg dose pack: take 500 mg today (day 1), then 250 mg for 4 days (days 2-5) prednisone 20 mg tablet 40 mg PO DAILY 5 Days Qty: 10 0RF amoxicillin 875 mg tablet 875 mg PO Q12H 10 Days Qty: 20 0RF albuterol sulfate 90 mcg/actuation HFA aerosol inhaler 2 puff inhalation QID PRN (Reason: shortness of breath or wheezing) Qty: 6.7 0RF (DME) Aerochamber MV Spacer See Rx Instructions .Route Qty: 1 0RF Rx Instructions: As directed hydrochlorothiazide 25 mg tablet 25 mg PO DAILY Qty: 30 0RF lisinopril 40 mg tablet 40 mg PO DAILY Qty: 30 0RF amlodipine 10 mg tablet 10 mg PO DAILY 60 Days Qty: 60 0RF hydrochlorothiazide 25 mg tablet 25 mg PO DAILY 60 Days Qty: 60 0RF lisinopril 40 mg tablet 40 mg PO DAILY 60 Days Qty: 60 0RF <Jg Alfaro MD - Last Filed: 12/10/24 19:02> Follow-up/Referrals: Nichole,TAWNYA Dasilva [Primary Care Provider] - <Jg Alfaro MD - Last Filed: 12/10/24 19:02>
[2024-12-10 17:53] LABS: Alanine Aminotransferase 60 U/L (6-50); Albumin Level 3.8 g/dL (3.5-5.1); Alkaline Phosphatase 89 U/L (38-126); Anion Gap 13 mmol/L (4-12); Aspartate Amino Transferase 88 U/L (17-59); Blood Urea Nitrogen 61 mg/dL (9-20); CRP 19.7 mg/dL (<1.0); Calcium 9.5 mg/dL (8.4-10.2); Carbon Dioxide 26 mmol/L (22-30); Chloride 93 mmol/L (98-107); Estimated CRCL calculation 54 ml/min; Estimated Glomerular Filt Rate 58; Glucose 122 mg/dL (65-110); Potassium 3.6 mmol/L (3.4-5.0); Sodium 132 mmol/L (137-145)
--- NOTE | 2024-12-10 18:00 | ECG_ITS ---
Test Date: 2024-12-10 18:58:46 Measurements Intervals [place] Rate: 142 P: -36 [place]: 97 QRS: -19 QRSD: 85 T: 102 QT: 260 QTc: 401 Interpretive Statements SINUS TACHYCARDIA WITH SHORT OH INTERVAL POSSIBLE SEPTAL MYOCARDIAL INFARCTION , PROBABLY OLD [30 ms Q WAVE IN V1/V2] ABNORMAL RHYTHM ECG Compared to ECG 12/10/2024 18:03:20 Myocardial infarct finding now present TACHYCARDIA NOW PRESENT Electronically Signed On 12-11-2024 14:19:28 EXECUTIVE SERVICES ADMINISTRATOR by Gale Carlisle M.D.
--- NOTE | 2024-12-10 18:03 | ECG_ITS ---
Test Date: 2024-12-10 18:03:20 Measurements Intervals [place] Rate: 97 P: 0 [place]: 0 QRS: -29 QRSD: 85 T: 46 QT: 328 QTc: 418 Interpretive Statements SINUS RHYTHM WITH PACS AND PVCS BORDERLINE LEFT AXIS DEVIATION [QRS AXIS < -20] Compared to ECG 12/10/2024 17:08:10 SUPRAVENTRICULAR TACHYCARDIA NO LONGER PRESENT Electronically Signed On 12-11-2024 14:18:12 BURN NURSE by Gale Carlisle M.D.
[2024-12-10] MEDS: METOPROLOL TARTRATE INJ 5 MG/5 ML VIAL IV PUSH ×3 (18:37→18:47)
[2024-12-10 18:44] LABS: D Dimer 2.28 ug/mL (<0.48)
[2024-12-10 18:53] LABS: Add Urine Microscopic? NO; Appearance Urine Clear (Clear); Bilirubin Urine Negative (Negative); Blood Urine Negative (Negative); Color Urine Yellow (Yellow); Glucose Urine UA Negative (Negative); Ketones Urine Trace mg/dL (Negative); Leukocyte Esterase Ur Negative LEU/UL (Negative); Nitrate Urine Negative (Negative); Protein Urine Negative (Negative); Specific Grav Ur 1.017 (1.001-1.035)
[2024-12-10] MEDS: SODIUM CHLORIDE 0.9% IV 2,000 ML 999 ML IV CONT (19:41)
[2024-12-10 19:46] LABS: NT Pro B Type Natriuretic Pept 2990 pg/mL (19.9-100); Troponin I 0.014 ng/mL (0.000-0.034)
--- NOTE | 2024-12-10 20:24 | ECG_ITS ---
Test Date: 2024-12-10 20:30:00 Measurements Intervals [place] Rate: 143 P: 0 [place]: 0 QRS: -24 QRSD: 87 T: 67 QT: 266 QTc: 411 Interpretive Statements SUPRAVENTRICULAR TACHYCARDIA POSSIBLE SEPTAL MYOCARDIAL INFARCTION , OF INDETERMINATE AGE [30 ms Q WAVE IN V1/V2] BASELINE ARTIFACT LIMITS INTERPRETATION Compared to ECG 12/10/2024 18:58:46 Sinus tachycardia no longer present Electronically Signed On 12-11-2024 14:21:03 DAYCARE ASSISTANT by Gale Carlisle M.D.
--- NOTE | 2024-12-10 20:26 | ECG_ITS ---
Test Date: 2024-12-10 20:44:30 Measurements Intervals [place] Rate: 77 P: 0 [place]: 0 QRS: -5 QRSD: 90 T: 86 QT: 369 QTc: 420 Interpretive Statements PROBABLE SINUS RHYTHM WITH PVCS PROBABLE SEPTAL MYOCARDIAL INFARCTION , PROBABLY OLD [35 ms Q WAVE IN V1/V2] Compared to ECG 12/10/2024 20:30:00 Supraventricular tachycardia no longer present Electronically Signed On 12-11-2024 14:22:37 SPINNING BATH PATROLLER by Gale Carlisle M.D.
[2024-12-10] MEDS: dilTIAZem HCl INJ 25 MG/5 ML VIAL 18 MG IV PUSH (20:31)
--- NOTE | 2024-12-10 20:31 | PC.NURSE ---
rn double check diltiazem 18mg = 3.6ml
[2024-12-10 21:16] LABS: Troponin I 0.013 ng/mL (0.000-0.034)
[2024-12-10 21:19] LABS: Influenza A QL RT-PCR Positive (Negative); Influenza B QL RT-PCR Negative (Negative); RSV RNA, RT-PCR Negative (Negative); SARS-CoV-2 RNA PCR Negative (Negative)
[2024-12-10 21:35] LABS: Procalcitonin 1.3 ng/mL
--- NOTE | 2024-12-10 22:08 | P.HP_ITS ---
H&P: HPI History of Present Illness Date/Time: 12/10/24 22:08 Chief Complaint: Shortness of breath Narrative: This is a 64-year-old male with past medical history significant for hypertension, COPD/emphysema, tobacco dependence. Patient presents to the emergency room with 3 months of shortness of breath worsened in the last 3 weeks or so with cough, productive sputum of greenish yellowish color copious amount, poor oral intake, poor appetite, weight loss. Patient found to have atrial fibrillation with rapid ventricular response. Preliminary workup was significant for chest x-ray with multifocal pneumonia patient tested positive for influenza type A. Patient has been admitted for further evaluation management and treatment. XR chest 2V Ordering provider: Laurence Reyes APRN History: 64 years Male with . cough, SOB, x 3 weeks . Comparison: July 23, 2016 FINDINGS: MEDIASTINUM: The cardiac silhouette is not enlarged. LUNGS: No effusions or pneumothorax. Prominent bronchovascular markings in the lower lobes with minimal opacification in the left perihilar and both lower lobes suggestive of pneumonia. OTHER: No free air under the diaphragm. IMPRESSION: Highly suggestive left perihilar and both lower lobe pneumonia. Follow-up advised. EXAMINATION: CTA chest PE protocol DATE: 12/10/2024 19:15 SENIOR CLINICAL DATA COORDINATOR INDICATION: Cough and shortness of breath TECHNIQUE: Computed tomographic angiography (CTA) of the chest was performed with 100 mL Omnipaque-350 intravenous contrast. The dose-length product was 379.19 mGy-cm. Maximum intensity projection 3D-reconstructions of the aorta and other arteries were constructed by the technologist on a separate workstation. COMPARISON: None. FINDINGS: No filling defect is identified within the main or proximal pulmonary arteries. The main pulmonary artery is not enlarged. The densely calcified thoracic aorta is otherwise unremarkable, without dilatation or dissection. Patchy groundglass opacification detected bilaterally, with primarily an upper lobe distribution for which multifocal pneumonia is suspected. No acute fracture. No lytic or blastic lesions. IMPRESSION: No pulmonary embolism. No aortic dissection. Multifocal pneumonia. Review of Systems Review of Systems: Cough for 3+ months, patient is a very poor historian and can not really contribute in a meaningful way to history taking. [facility] Past Medical History Medical History Hypertension Family History Family History (Updated 12/11/24 @ 00:18 by Maggi Bautista RN) Father Dementia Sibling Alcohol abuse Meds Home Medications and Allergies Home Medications ?Medication ?Instructions ?Recorded ?Confirmed ?Type hydrochlorothiazide 25 mg tablet 25 mg PO DAILY #30 tabs 11/03/23 12/09/24 Rx lisinopril 40 mg tablet 40 mg PO DAILY #30 tabs 11/03/23 12/22/23 Rx amlodipine 10 mg tablet 10 mg PO DAILY 12/22/23 12/22/23 History amlodipine 10 mg tablet 10 mg PO DAILY 30 days #30 tabs 12/22/23 Rx hydrochlorothiazide 25 mg tablet 25 mg PO DAILY 30 days #30 tabs 12/22/23 Rx lisinopril 40 mg tablet 40 mg PO DAILY 30 days #30 tabs 12/22/23 Rx amlodipine 10 mg tablet 10 mg PO DAILY 60 days #60 tabs 01/20/24 12/09/24 Rx hydrochlorothiazide 25 mg tablet 25 mg PO DAILY 60 days #60 tabs 01/20/24 Rx lisinopril 40 mg tablet 40 mg PO DAILY 60 days #60 tabs 01/20/24 12/09/24 Rx albuterol sulfate 90 mcg/actuation 2 puff inhalation QID PRN 12/09/24 Rx aerosol inhaler shortness of breath or wheezing #6.7 grams amoxicillin 875 mg tablet 875 mg PO Q12H 10 days #20 tabs 12/09/24 Rx azithromycin 250 mg tablet See Rx Instructions PO .COMPLEX #6 12/09/24 Rx tabs inhalational spacing device #1 ea 12/09/24 Rx (Aerochamber MV spacer) prednisone 20 mg tablet 40 mg (2 x 20 mg) PO DAILY 5 days 12/09/24 Rx #10 tabs Allergies Allergy/AdvReac Type Severity Reaction Status Date / Time cephalexin Allergy Intermediate HIVES Verified 12/11/24 00:22 Vital Signs Vital Signs - 24 hr 12/10/24 16:54 12/10/24 17:48 12/10/24 17:49 Temperature 97.0 F L Pulse Rate 98 172 H Respiratory Rate 20 15 19 Blood Pressure 124/93 H 112/85 Pulse Oximetry 92 95 Oxygen Delivery Room Air 12/10/24 18:37 12/10/24 18:42 12/10/24 18:47 Temperature Pulse Rate 164 H 151 H 146 H Respiratory Rate Blood Pressure Pulse Oximetry Oxygen Delivery 12/10/24 18:53 12/10/24 20:00 Temperature Pulse Rate 146 H 88 Respiratory Rate 19 21 H Blood Pressure 143/106 H 138/101 H Pulse Oximetry 95 94 Oxygen Delivery Exam Narrative: Patient is standing upon me arriving to the room Const: General: comfortable, no acute distress, well developed, alert, awake, ill appearing acutely and underweight Nutritional Appearance: underweight Orientation/consciousness: patient oriented x3 Other: Patient looks older than stated age, having bouts of cough HENMT: Head: normal to inspection, normocephalic and atraumatic Ears: hearing grossly normal bilaterally Face/Nose/Sinus: normal facial exam Face and sinus: normal facial exam Eyes: General: appearance normal, both eyes and all related structures Pupils: Equal, round and reactive pupils present EOM: EOMs intact bilaterally Neck: Neck: full ROM, no lymphadenopathy and no JVD Thyroid: thyroid normal Lymphatic: no lymphadenopathy noted Resp: Effort & Inspection: normal respiratory effort, able to speak in complete sentences, Actively coughing and tachypneic Auscultation: crackles, wheezes and diminished lung sounds Cardio: Jugular venous distension: no JVD Rate: tachycardic Rhythm: abnormal rhythm irregularly irregular Heart sounds: S1 normal heart sound present and S2 normal heart sound present GI: Inspection: normal to inspection GI Palp: Yes Soft to palpation and Yes No hepatosplenomegaly present : General: Yes deferred Skin: Rashes: no rashes Wounds: no wounds Neuro: General: patient oriented x3 and CN's II-XI intact bilaterally Cranial nerves: Yes CN's II-XII intact bilaterally and Yes Equal, round and reactive pupils present Cognition (Neuro): normal cognition Speech: normal speech Gait exam (Neuro): Normal gait present Motor exam (neuro): 5/5 motor strength present throughout Extrem: General: normal to inspection, full ROM, no joint enlargement and no pedal edema H&P: Results Labs Labs: Short CBC 12/10/24 Range/Units 17:14 WBC 10.1 H (4.5-10.0) K/mm3 Hgb 14.4 (14.0-18.0) g/dL Hct 40.6 L (42.0-52.0) % Plt Count 378 H (150-375) k/mm3 BMP 12/10/24 17:14 Sodium 132 L Potassium 3.6 Chloride 93 L Carbon Dioxide 26 BUN 61 H Creatinine 1.26 Glucose 122 H Calcium 9.5 Cardiac Enzymes 12/10/24 12/10/24 Range/Units 17:14 20:38 Troponin I 0.014 0.013 (0.000-0.034) ng/mL Liver Function 12/10/24 Range/Units 17:14 Total Bilirubin 2.0 H (0.2-1.3) mg/dL AST 88 H (17-59) U/L ALT 60 H (6-50) U/L Alkaline Phosphatase 89 (38-126) U/L Albumin 3.8 (3.5-5.1) g/dL Urine 12/10/24 Range/Units 18:48 Urine Color Yellow (Yellow) Urine Appearance Clear (Clear) Urine pH 5.0 (5.0-9.0) Ur Specific Irwin 1.017 (1.001-1.035) Urine Protein Negative (Negative) mg/dL Urine Glucose (UA) Negative (Negative) mg/dL Assessment and Plan Assessment and plan (1) Multifocal pneumonia: Code(s): J18.9 - Pneumonia, unspecified organism Status: Acute Assessment and Plan: Admit to IMU Patient is started on Rocephin and Zithromax Cultures in progress (2) Influenza A: Code(s): J10.1 - Influenza due to other identified influenza virus with other respiratory manifestations Status: Acute Assessment and Plan: Supportive care (3) Atrial fibrillation: Code(s): I48.91 - Unspecified atrial fibrillation Status: Acute Assessment and Plan: On diltiazem drip Admit to IMU (4) COPD with emphysema: Code(s): J43.9 - Emphysema, unspecified Status: Acute Assessment and Plan: Breathing treatments (5) Tobacco dependence: Code(s): F17.200 - Nicotine dependence, unspecified, uncomplicated Status: Acute Assessment and Plan: Nicotine patch as needed Hospitalist MIPS Advance Care Plan I have confirmed that the patient's Advanced Care Plan is present, code status is documented, or surrogate decision maker is listed in patient medical record.: Yes Medication Reconciliation I have utilized all available resources to obtain, update and review the patients current medications (includes all prescriptions, OTC, herbals, cannabis, and nutritional supplements).: Yes
[2024-12-10] MEDS: OSELTAMIVIR PHOSPHATE 30 MG CAPSULE PO (22:49)
[2024-12-10] MEDS: ENOXAPARIN 80 MG/0.8 ML SYRINGE 70 MG SUB-Q (22:50)
[2024-12-10] MEDS: dilTIAZem 100 MG/100 ML 100 MG/100 ML BAG IV CONT (22:50)
[2024-12-11] VITALS (38 sets, daily range): BP systolic 107–134; BP diastolic 67–95; PULSE 71–173; RESP 20–33; TEMP 36.3–38.2; O2SAT 84–100
--- NOTE | 2024-12-11 | ECHO_ITS ---
Patient Info Name: Jesse Rodríguez Age: 64 years : 1960 Gender: Male Ht: 71 in Wt: 156 lbs BSA: 1.88 m2 HR: 173 bpm BP: 127 / 78 mmHg Heart Rhythm: Tachycardia Technical Quality: Poor Exam Date: 12/11/2024 3:07 PM Exam Location: Echo Lab Patient Status: Inpatient Admit Date: 12/10/2024 Staff Ordering Physician: Gale Carlisle MD (mateo/karla) Entrepreneurship Program Director: Mic Garcia RDCS Attending Provider: Corbin Nicole MD Referring Physician: Orestes DALTON; Exam Type: CA echo doppler color flow Study Info Indications - SVT Complete two-dimensional, color flow and Doppler transthoracic echocardiogram is performed. Reason for Poor Study: poor patient cooperation Summary 1. Complete two-dimensional, color flow and Doppler transthoracic echocardiogram is performed. 2. Technically difficult study with limited views as patient is supine, confused, and restrained with mittens. 3. Overall does appear to have normal biventricular size and systolic function. 4. There does not appear to be any significant valvular disease. Left Ventricle The left ventricle is normal in size and systolic function. The left ventricular ejection fraction is visually estimated to be 50-55%. Right Ventricle The right ventricle is normal in size and systolic function. Left Atria The left atrium is normal size. Right Atria The right atrium is normal size. Atrial Septum The atrial septum is not well visualized. Aortic Valve The aortic valve is probably trileaflet and opens well. Pulmonic Valve The pulmonic valve is not well visualized. Mitral Valve The mitral valve is normal. Tricuspid Valve The tricuspid valve is normal. Pericardium/Pleural There are no pericardial effusion in the available views. Inferior Vena Cava Inferior vena cava is not well visualized. Aorta The aortic root at the level of the sinus of Valsalva measures 3.2 cm in diameter. Left Ventricular Outflow Tract Name Value Normal LVOT 2D LVOT Diameter 2.0 cm LVOT Doppler LVOT Peak Gradient 2 mmHg LVOT Mean Gradient 1 mmHg LVOT VTI 12 cm LVOT VTI/AV VTI Ratio 0.6 LVOT Stroke Volume 37 ml LVOT CO 4.8 l/min LVOT CI 2.6 l/min/m2 Pulmonic Valve Name Value Normal RVOT Doppler RVOT Peak Gradient 2 mmHg Mitral Valve Name Value Normal MV Doppler MV Decel Swain 363 cm/s2 MV PHT 35 ms MV Area (PHT) 6.3 cm2 4.0-5.0 MV Diastolic Function MV E Peak Velocity 44 cm/s MV A Peak Velocity 53 cm/s MV E/A 0.8 MV Decel Time 121 ms MV Annular TDI MV E/e' (Septal) 2.7 <=8.0 MV E/e' (Lateral) 5.4 <=8.0 MV E/e' (Average) 4.0 Aorta Name Value Normal Ascending Aorta Ao Root Diameter (MM) 4.0 cm Ao Root Diam Index (MM) 2.1 cm/m2 Aortic Valve Name Value Normal AV Doppler AV Peak Velocity 98 cm/s AV Peak Gradient 4 mmHg AV Mean Gradient 2 mmHg AV VTI 18 cm AV Area (Cont Eq VTI) 2.1 cm2 >=3.0 AV Area (Cont Eq Rickey) 2.2 cm2 AV Regurgitation 2D LVOT Area 3.2 cm2 Ventricles Name Value Normal LV Dimensions 2D/MM IVS Diastolic Thickness (2D) 1.5 cm 0.6-1.0 LVID Diastole (2D) 4.5 cm 4.2-5.8 LVIW Diastolic Thickness (2D) 0.8 cm 0.6-1.0 LVID Systole (2D) 3.2 cm 2.5-4.0 LVOT Diameter 2.0 cm LV Mass (2D Cubed) 194.32 g 88.00-224.00 LV Mass Index (2D Cubed) 103 g/m2 49-115 Relative Wall Thickness (2D) 0.36 LV Fractional Shortening/Ejection Fraction 2D/MM LV Fractional Shortening (2D) 29 % 25-43 LV EF (2D Teicholz) 55 % 52-72 Atria Name Value Normal LA Dimensions LA Dimension (MM) 4.0 cm 3.0-4.1 LA Volume (4C A-L) 38 ml RA Dimensions RA Area (4C) 11.0 cm2 <=18.0 Report Signatures
--- NOTE | 2024-12-11 00:14 | ADMGEN ---
This patient, Jesse Rodríguez, was admitted to IMU Room 207-01. Patient/family oriented to hospital policies and general routines including ID bracelet, bed and alarms, visiting hours, pain management, procedures, bathroom and other care routines, personal items, smoking policy, room service/diet, and visiting hours. Information on how to activate the Rapid Response Team has been discussed. Patient/Family are encouraged to report perceived risks to care and to ask questions if they do not understand what they are told or what they should do.
[2024-12-11 01:04] LABS: Troponin I 0.014 ng/mL (0.000-0.034)
--- NOTE | 2024-12-11 02:25 | PC.NURSE ---
Ativan used for alcohol withdraw, CIWA orders to follow per Dr. Nicole.
[2024-12-11 02:43] LABS: Alveolar/Arterial O2 Gradient 147.9 mmHg; Base Excess ABG 0.9 mEq/l (+/-2.0); Carboxyhemoglobin 0.8 % THb (0-2.0); Fractional Inspired Oxygen 36 %; HCO3 ABG 24.9 mEq/l (22.0-26.0); Methemoglobin ABG 0.1 %THb (0-1.5); Oxygen Content ABG 17.1 %vol (16.0-22.0); Oxygen Saturation ABG 93.5 % (95.0-100.0); Oxyhemoglobin 90.7 % THb (90.0-100.0); PCO2 ABG 37.7 mmHg (35.0-45.0); PO2 ABG 65.1 mmHg (80.0-100.0); PO2 FiO2 Ratio Arterial Blood 1.81 %; Reduced Hemoglobin 8.4 %THb (0-5.0); Total Hemoglobin 13.4 g/dL (12.0-18.0); pH ABG 7.437 (7.350-7.450)
--- NOTE | 2024-12-11 02:44 | PC.NURSE ---
This RN called the , about concerns with the patient. The stated that the patient has had a horrible past and don't be surprised if the patient snaps . This RN asked if the patient has a history of drug use in which the stated no , and then when asked the said he is a drinker. She stated that the patient drinks a 9 pack of 16oz beers/day. She stated that his last drink was about 4 days ago. This RN informed the that the patient was becoming anxious, and pulling at things, and trying to get out of bed. The stated to give the patient whatever we needed to help him calm down, and to call her if we need anything.
[2024-12-11 02:52] LABS: Device NASAL CANNULA; Modified Allen's Test Pass; Site Drawn RIGHT RADIAL
--- NOTE | 2024-12-11 02:53 | PCRCNOTE ---
Pt ABG delayed until RN could give ativan to calm him down.
[2024-12-11] MEDS: LORazepam INJ (*CRX) 2 MG/ML VIAL 1 MG IV PUSH (03:15)
--- NOTE | 2024-12-11 04:00 | PC.NURSE ---
This RN spoke to RT and they stated that the patient removed the BiPAP and did not tolerate it at all. This RN notified provider and provider ok with 7L HF NC at this time.
[2024-12-11 04:10] LABS: Amphetamine Screen Urine Negative (Negative); Barbiturate Screen Urine Negative (Negative); Benzodiazepines Screen Urine Negative (Negative); Cannabinoid Screen Urine Negative (Negative); Cocaine Screen Urine Negative (Negative); Methadone Screen Urine Negative (Negative); Opiate Screen Urine Negative (Negative); Phencyclidine Screen Urine Negative (Negative)
[2024-12-11 05:04] LABS: Basophils Absolute Auto 0.1 K/mm3 (0.0-0.1); Basophils Percent Auto 0.5 % (0.2-1.2); Hematocrit 33.5 % (42.0-52.0); Hemoglobin 11.5 g/dL (14.0-18.0); Immature Granulocyte Absolute 0.07 K/mm3 (0.00-0.031); Immature Granulocyte Percent A 0.7 % (0-0.5); Lymphocytes Absolute Auto 0.34 K/mm3 (0.9-3.2); Lymphocytes Percent Auto 3.2 % (18.3-44.2); Mean Corpuscular HGB Conc 34.3 g/dl (32-36); Mean Corpuscular Hemoglobin 33.4 pg (26-34); Mean Corpuscular Volume 97.4 fl (80-100); Mean Platelet Volume 9.2 fl (7.4-10.4); Monocytes Absolute Auto 0.8 K/mm3 (0.1-0.6); Monocytes Percent Auto 7.9 % (2.6-8.5); Neutrophils Absolute Auto 9.4 K/mm3 (1.3-6.7); Neutrophils Percent Auto 87.7 % (45.5-73.1); Platelet Count Result 342 k/mm3 (150-375); Red Blood Count 3.44 M/mm3 (4.6-6.20); Red Cell Distribution Width 13.2 % (11.5-14.5); White Blood Count 10.7 K/mm3 (4.5-10.0)
[2024-12-11] MEDS: chlordiazePOXIDE (*CRX) 25 MG CAPSULE 50 MG PO (05:04)
[2024-12-11] MEDS: LORazepam INJ (*CRX) 2 MG/ML VIAL IV PUSH ×4 (05:04→14:02)
[2024-12-11 05:11] LABS: Glucose Point of Care 94 mg/dl (65-105)
[2024-12-11 05:16] LABS: INR 1.1; Prothrombin Time 14.9 Seconds (11.1-14.7)
[2024-12-11 05:26] LABS: Anion Gap 8 mmol/L (4-12); Blood Urea Nitrogen 47 mg/dL (9-20); Calcium 8.7 mg/dL (8.4-10.2); Carbon Dioxide 26 mmol/L (22-30); Chloride 100 mmol/L (98-107); Estimated CRCL calculation 66 ml/min; Estimated Glomerular Filt Rate > 60; Glucose 90 mg/dL (65-110); Magnesium 2.6 mg/dL (1.6-2.3); Phosphorus 4.9 mg/dL (2.5-4.5); Potassium 3.5 mmol/L (3.4-5.0); Sodium 134 mmol/L (137-145)
[2024-12-11] MEDS: IPRATROPIUM 0.5 MG/ALBUTEROL SULFATE 2.5 MG AMPUL.NEB 3 ML INHALATION ×4 (07:10→21:10)
--- NOTE | 2024-12-11 08:47 | PM.IMPN ---
Progress Note: A&P Assessment and Plan (1) Multifocal pneumonia: Code(s): J18.9 - Pneumonia, unspecified organism Status: Acute (2) Influenza A: Code(s): J10.1 - Influenza due to other identified influenza virus with other respiratory manifestations Status: Acute (3) Atrial fibrillation: Code(s): I48.91 - Unspecified atrial fibrillation Status: Deleted (4) COPD with emphysema: Code(s): J43.9 - Emphysema, unspecified Status: Acute (5) Tobacco dependence: Code(s): F17.200 - Nicotine dependence, unspecified, uncomplicated Status: Acute Plan 64 years old man with history of COPD, tobacco dependence, present ED with a chief complaint of productive cough more than 3 weeks and shortness breath. In the ED, patient was found have AFib RVR. Further workup in the ED showed multifocal pneumonia, positive influenza a infection Multifocal pneumonia: Code(s): J18.9 - Pneumonia, unspecified organism Status: Acute Assessment and Plan: Upon arrival in the ED, patient was found have leukocytosis 10,700, influenza A positive X-ray shows multifocal pneumonia Consistent pneumonia due to viral and better infection Admit to IMU Continue Zithromax, Tamiflu p.o. change to cefepime Cultures in progress Influenza A: Code(s): J10.1 - Influenza due to other identified influenza virus with other respiratory manifestations Status: Acute Assessment and Plan: Supportive care Atrial fibrillation: Code(s): I48.91 - Unspecified atrial fibrillation Status: Acute Assessment and Plan: On diltiazem drip p.r.n. 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 O2 therapy p.r.n. Moderate to severe Alcohol withdrawal Patient is on Librium 50 mg q.6 hours p.o., patient cannot take medication orally Start Ativan IV p.r.n. based on CIWA score Start folic acid and thiamine Dehydration Elevated BUN creatinine ratio 47/1.0, dry mucous membrane Start D5 normal saline 125 mL/hour Tobacco dependence: Code(s): F17.200 - Nicotine dependence, unspecified, uncomplicated Status: Acute Assessment and Plan: Nicotine patch as needed Subjective Date/time seen: 12/11/24 08:47 Interval history: Patient has low-grade fever 100.7, tachypnea, tachycardia, blood pressure stable, on the lower side. Patient is still confused, agitated, patient cannot provide any history. Labs showed leukocytosis 10,700, hemoglobin 11.5 elevated BUN creatinine ratio 47/1.01 Exam Narrative: GENERAL: Ill-appearing, in no acute distress. Well-nourished. - EYES: EOMI. Anicteric. - HENT: Dry mucous membranes. - LUNGS: Coarse breath sound bilaterally, no wheezing, rhonchi, or rales. Tachypnea - CARDIOVASCULAR: Irregular irregular rhythm, tachycardia No murmur. No JVD. - ABDOMEN: Soft, non-tender and non-distended. No palpable masses. - EXTREMITIES: No edema. Peripheral pulses 2+. Non-tender. - NEUROLOGIC: No focal neurological deficits. CN II-XII grossly intact. - PSYCHIATRIC: Confused not oriented x 3. Agitated mood and affect. - SKIN: No rashes or lesions. Warm. - LYMPH: No cervical lymphadenopathy. Objective Data Vital Signs Vital Signs: Vital Signs - 24 hr 12/10/24 16:54 12/10/24 17:48 12/10/24 17:49 Temperature 97.0 F L Pulse Rate 98 172 H Respiratory Rate 20 15 19 Blood Pressure 124/93 H 112/85 Pulse Oximetry 92 95 Oxygen Delivery Room Air Oxygen Flow Rate 12/10/24 18:37 12/10/24 18:42 12/10/24 18:47 Temperature Pulse Rate 164 H 151 H 146 H Respiratory Rate Blood Pressure Pulse Oximetry Oxygen Delivery Oxygen Flow Rate 12/10/24 18:53 12/10/24 20:00 12/10/24 22:50 Temperature Pulse Rate 146 H 88 141 H Respiratory Rate 19 21 H Blood Pressure 143/106 H 138/101 H 132/93 H Pulse Oximetry 95 94 Oxygen Delivery Oxygen Flow Rate 12/10/24 23:13 12/10/24 23:35 12/10/24 23:35 Temperature 98.1 F 98.1 F Pulse Rate 90 86 86 Respiratory Rate 22 H 34 H 34 H Blood Pressure 124/83 130/77 130/77 Pulse Oximetry 93 97 97 Oxygen Delivery Oxygen Flow Rate 12/11/24 00:00 12/11/24 01:45 12/11/24 01:45 Temperature Pulse Rate 90 156 H Respiratory Rate Blood Pressure 130/77 132/95 H Pulse Oximetry 95 86 L Oxygen Delivery Room Air Oxygen Flow Rate 12/11/24 01:46 12/11/24 01:48 12/11/24 01:56 Temperature Pulse Rate 77 Respiratory Rate Blood Pressure Pulse Oximetry 88 L 94 Oxygen Delivery Nasal Cannula Nasal Cannula Oxygen Flow Rate 2 4 12/11/24 02:00 12/11/24 02:00 12/11/24 02:25 Temperature Pulse Rate 92 92 80 Respiratory Rate Blood Pressure 132/95 H Pulse Oximetry Oxygen Delivery Oxygen Flow Rate 12/11/24 03:56 12/11/24 04:00 12/11/24 04:00 Temperature 98.7 F Pulse Rate 94 104 H Respiratory Rate 32 H Blood Pressure 129/91 H Pulse Oximetry 93 92 Oxygen Delivery High Flow Therapy with Na Oxygen Flow Rate 7 12/11/24 06:00 12/11/24 07:10 12/11/24 07:10 Temperature Pulse Rate 74 84 84 Respiratory Rate 20 20 Blood Pressure Pulse Oximetry 97 Oxygen Delivery High Flow Nasal Cannula Oxygen Flow Rate 9 12/11/24 07:20 12/11/24 07:48 Temperature 100.7 F H Pulse Rate 89 88 Respiratory Rate 20 28 H Blood Pressure 107/82 Pulse Oximetry 97 Oxygen Delivery Oxygen Flow Rate Intake/Output Intake/Output: Intake & Output 12/08/24 12/09/24 12/10/24 12/11/24 23:59 23:59 23:59 23:59 Intake Total 1999 767.9 Output Total 400 Balance 1999 367.9 Meds/Results Medications: Active Medications Generic Name Dose Route Start Last Admin Trade Name Freq PRN Reason Stop Dose Admin Acetaminophen 650 mg 12/11/24 07:58 Acetaminophen 325 Mg Tablet PO Q4H PRN Mild Pain (1-3) or Fever Albuterol 2 puff 12/11/24 00:26 Albuterol Sulfate (*Sp) Aerosol 1 Puff INHALATION QIDRT PRN shortness of breath or wheezing Albuterol/Ipratropium 3 ml 12/11/24 02:00 12/11/24 07:10 Ipratropium 0.5 Mg/Albuterol Sulfate 2.5 Mg Ampul.Neb 3 Ml INHALATION 3 ml Q6HRT SANTIAGO Administration Amlodipine Besylate 10 mg 12/11/24 09:00 Amlodipine Besylate 10 Mg Tablet PO DAILY [facility] Chlordiazepoxide HCl 50 mg 12/11/24 06:00 12/11/24 05:04 Chlordiazepoxide (*Crx) 25 Mg Capsule PO 50 mg Q6HR SANTIAGO Administration Enoxaparin Sodium 80 mg 12/11/24 10:00 Enoxaparin 80 Mg/0.8 Ml Syringe SUB-Q Q12HR [facility] Lorazepam 2 mg 12/11/24 04:19 12/11/24 05:04 Lorazepam Inj (*Crx) 2 Mg/Ml Vial IV PUSH 2 mg Q4H PRN Administration CIWA >8 Ondansetron HCl 4 mg 12/11/24 04:19 Ondansetron Inj 4 Mg/2 Ml Vial IV PUSH Q6H PRN Nausea And Vomiting Oseltamivir Phosphate 30 mg 12/11/24 09:00 Oseltamivir Phosphate 30 Mg Capsule PO 12/15/24 09:01 Q12HR [facility] Radiology Results: ITS Impressions Chest CTA 12/10/24 19:15 IMPRESSION: No pulmonary embolism. No aortic dissection. Multifocal pneumonia. Labs Labs: Laboratory Results - last 24 hr 12/10/24 12/10/24 12/10/24 17:14 18:48 20:31 WBC 10.1 H RBC 4.34 L Hgb 14.4 Hct 40.6 L MCV 93.5 MCH 33.2 MCHC 35.5 RDW 12.8 Plt Count 378 H MPV 9.2 Immature Gran % (Auto) 0.7 H Neut % (Auto) 85.5 H Lymph % (Auto) 4.4 L [place] % (Auto) 6.6 Eos % (Auto) 2.3 Baso % (Auto) 0.5 Lymph # (Auto) 0.44 L [place] # (Auto) 0.7 H Eos # (Auto) 0.2 Baso # (Auto) 0.1 Abs Immat Gran (auto) 0.07 H Absolute Neuts (auto) 8.6 H Absolute Nucleated RBC 0.000 Nucleated RBC % 0.0 PT 14.2 INR 1.1 APTT 26.9 D-Dimer 2.28 H Puncture Site ABG pH ABG pCO2 ABG pO2 ABG PO2/FiO2 Ratio ABG HCO3 ABG O2 Saturation ABG O2 Content ABG Base Excess A-a Gradient Oxyhemoglobin Carboxyhemoglobin Methemoglobin Reduced Hemoglobin Total Hemoglobin O2 Delivery Device O2 Liters/Min FiO2 Sodium 132 L Potassium 3.6 Chloride 93 L Carbon Dioxide 26 Anion Gap 13 H BUN 61 H Creatinine 1.26 Estim Creat Clear Calc 54 Estimated GFR 58 L Glucose 122 H POC Capillary Glucose Calcium 9.5 Phosphorus Magnesium Total Bilirubin 2.0 H AST 88 H ALT 60 H Alkaline Phosphatase 89 Troponin I 0.014 C-Reactive Protein 19.7 H NT-Pro-B Natriuret Pep 2990 H Total Protein 8.0 Albumin 3.8 Procalcitonin Urine Color Yellow Urine Appearance Clear Urine pH 5.0 Ur Specific [place] 1.017 Urine Protein Negative Urine Glucose (UA) Negative Urine Ketones Trace H Ur Blood (Man) Negative Urine Nitrate Negative Urine Bilirubin Negative Urine Urobilinogen 1.0 Leukocyte Esterase Rfl Negative Urine Opiates Screen Urine Methadone Screen Ur Barbiturates Screen Ur Phencyclidine Scrn Ur Amphetamine Screen U Benzodiazepines Scrn Urine Cocaine Screen U Cannabinoids Screen Influenza A (RT-PCR) Positive A Influenza B (RT-PCR) Negative RSV (RT-PCR) Negative SARS-CoV-2 RNA (RT-PCR) Negative 12/10/24 12/11/24 12/11/24 20:38 00:33 02:32 WBC RBC Hgb Hct MCV MCH MCHC RDW Plt Count MPV Immature Gran % (Auto) Neut % (Auto) Lymph % (Auto) [place] % (Auto) Eos % (Auto) Baso % (Auto) Lymph # (Auto) [place] # (Auto) Eos # (Auto) Baso # (Auto) Abs Immat Gran (auto) Absolute Neuts (auto) Absolute Nucleated RBC Nucleated RBC % PT INR APTT D-Dimer Puncture Site Right radial ABG pH 7.437 ABG pCO2 37.7 ABG pO2 65.1 L ABG PO2/FiO2 Ratio 1.81 ABG HCO3 24.9 ABG O2 Saturation 93.5 L ABG O2 Content 17.1 ABG Base Excess 0.9 A-a Gradient 147.9 Oxyhemoglobin 90.7 Carboxyhemoglobin 0.8 Methemoglobin 0.1 Reduced Hemoglobin 8.4 H Total Hemoglobin 13.4 O2 Delivery Device Nasal cannula O2 Liters/Min 4.0 FiO2 36 Sodium Potassium Chloride Carbon Dioxide Anion Gap BUN Creatinine Estim Creat Clear Calc Estimated GFR Glucose POC Capillary Glucose Calcium Phosphorus Magnesium Total Bilirubin AST ALT Alkaline Phosphatase Troponin I 0.013 0.014 C-Reactive Protein NT-Pro-B Natriuret Pep Total Protein Albumin Procalcitonin 1.3 Urine Color Urine Appearance Urine pH Ur Specific [place] Urine Protein Urine Glucose (UA) Urine Ketones Ur Blood (Man) Urine Nitrate Urine Bilirubin Urine Urobilinogen Leukocyte Esterase Rfl Urine Opiates Screen Urine Methadone Screen Ur Barbiturates Screen Ur Phencyclidine Scrn Ur Amphetamine Screen U Benzodiazepines Scrn Urine Cocaine Screen U Cannabinoids Screen Influenza A (RT-PCR) Influenza B (RT-PCR) RSV (RT-PCR) SARS-CoV-2 RNA (RT-PCR) 12/11/24 12/11/24 12/11/24 03:22 04:36 05:07 WBC 10.7 H RBC 3.44 L Hgb 11.5 L Hct 33.5 L MCV 97.4 MCH 33.4 MCHC 34.3 RDW 13.2 Plt Count 342 MPV 9.2 Immature Gran % (Auto) 0.7 H Neut % (Auto) 87.7 H Lymph % (Auto) 3.2 L [place] % (Auto) 7.9 Eos % (Auto) 0.0 Baso % (Auto) 0.5 Lymph # (Auto) 0.34 L [place] # (Auto) 0.8 H Eos # (Auto) 0.0 Baso # (Auto) 0.1 Abs Immat Gran (auto) 0.07 H Absolute Neuts (auto) 9.4 H Absolute Nucleated RBC 0.000 Nucleated RBC % 0.0 PT 14.9 H INR 1.1 APTT D-Dimer Puncture Site ABG pH ABG pCO2 ABG pO2 ABG PO2/FiO2 Ratio ABG HCO3 ABG O2 Saturation ABG O2 Content ABG Base Excess A-a Gradient Oxyhemoglobin Carboxyhemoglobin Methemoglobin Reduced Hemoglobin Total Hemoglobin O2 Delivery Device O2 Liters/Min FiO2 Sodium 134 L Potassium 3.5 Chloride 100 Carbon Dioxide 26 Anion Gap 8 BUN 47 H D Creatinine 1.01 Estim Creat Clear Calc 66 Estimated GFR > 60 Glucose 90 POC Capillary Glucose 94 Calcium 8.7 Phosphorus 4.9 H Magnesium 2.6 H Total Bilirubin AST ALT Alkaline Phosphatase Troponin I C-Reactive Protein NT-Pro-B Natriuret Pep Total Protein Albumin Procalcitonin Urine Color Urine Appearance Urine pH Ur Specific [place] Urine Protein Urine Glucose (UA) Urine Ketones Ur Blood (Man) Urine Nitrate Urine Bilirubin Urine Urobilinogen Leukocyte Esterase Rfl Urine Opiates Screen Negative Urine Methadone Screen Negative Ur Barbiturates Screen Negative Ur Phencyclidine Scrn Negative Ur Amphetamine Screen Negative U Benzodiazepines Scrn Negative Urine Cocaine Screen Negative U Cannabinoids Screen Negative Influenza A (RT-PCR) Influenza B (RT-PCR) RSV (RT-PCR) SARS-CoV-2 RNA (RT-PCR)
[2024-12-11] MEDS: ENOXAPARIN 80 MG/0.8 ML SYRINGE SUB-Q ×2 (09:08→21:11)
[2024-12-11] MEDS: CEFEPIME 2 GM/NS 50 ML 2 GM/50 ML BAG IVPB ×2 (09:26→15:53)
[2024-12-11] MEDS: THIAMINE HCL 200 MG/2 ML VIAL 100 MG IV PUSH (09:26)
[2024-12-11] MEDS: FOLIC ACID 1 MG/0.2 ML INJ IV PUSH (09:31)
--- NOTE | 2024-12-11 11:06 | P.CONCA_ITS ---
Assessment and Plan Assessment and plan (1) SVT (supraventricular tachycardia): Code(s): I47.10 - Supraventricular tachycardia, unspecified Status: Acute Assessment and Plan: Multiple EKGs done since admission, and all were personally reviewed. Initial EKG shows SVT with heart rate of 166bpm. Repeat EKG appears to be sinus tachycardia. Subsequent EKGs appear to be sinus rhythm with frequent PVCs. Review of telemetry shows no atrial fibrillation. There are short bursts of tachycardia with sudden onset and sudden offset, with heart rates as high as the 190s. When the tachycardia offsets, no flutter waves are seen, goes into sinus rhythm. I suspect this is all SVT. Likely due to influenza A, multifocal pneumonia, alcohol withdrawal. Treatment of these acute issues should improve the tachycardia. In the meantime, will start scheduled IV Metoprolol (patient cannot take oral meds at this time). Once he is able to take oral meds, will transition to PO Metoprolol. Echocardiogram ordered and pending. Will also check TSH level. Does not need to be on therapeutic anticoagulation from my standpoint. (2) Influenza A: Code(s): J10.1 - Influenza due to other identified influenza virus with other respiratory manifestations Status: Acute Assessment and Plan: Tamiflu ordered, but patient not able to take oral meds at this time. Continue supportive care per Hospitalist. (3) Multifocal pneumonia: Code(s): J18.9 - Pneumonia, unspecified organism Status: Acute Assessment and Plan: On antibiotics as per Hospitalist. (4) Alcohol withdrawal: Code(s): F10.939 - Alcohol use, unspecified with withdrawal, unspecified Status: Acute Assessment and Plan: Currently withdrawing. Plan Recommendations and plan discussed with Hospitalist. History of Present Illness History of Present Illness Consult date/time: 12/11/24 11:06 Requesting physician: Linda Griffith MD Consult reason: Other (Tachycardia ) Reason For Visit: Influenza, afib Narrative: We are consulted for possible atrial fibrillation. History cannot be obtained from the patient due to mental status; no family at bedside. Therefore, all history obtained from the patient's chart and medical team. This is a 64 year old male with alcohol abuse who presented with coughing and shortness of breath; was recently diagnosed with pneumonia. Workup shows multifocal pneumonia, positive Influenza. In the ED, he had paroxysms of tachycardia with heart rates up into the 150s. He would self-convert out of these episodes. Thought to have converted to possible atrial fibrillation vs sinus rhythm with frequent ectopy. Was started on Diltiazem drip initially which has been subsequently discontinued. Overnight, patient started having alcohol withdrawal. No prior cardiac history documented in our system. Troponins are negative. Chest CTA with no PE, multifocal pneumonia. Multiple EKGs done since admission, and all were personally reviewed. Initial EKG shows SVT with heart rate of 166bpm. Repeat EKG appears to be sinus tachycardia. Subsequent EKGs appear to be sinus rhythm with frequent PVCs. Review of telemetry shows no atrial fibrillation. There are short bursts of tachycardia with sudden onset and sudden offset, with heart rates as high as the 190s. When the tachycardia offsets, no flutter waves are seen, goes into sinus rhythm. Review of Systems 2 Review of Systems: ROS unobtainable: Yes unobtainable due to mental status PMFSH Past Medical History Medical History Hypertension Family History Family History Father Dementia Sibling Alcohol abuse Social History Social History Smoking packs per day: 1 Smoking cigarettes per day: 20.0 Years smoked: 5 Smoking pack-years: 5.00 Smoking status: Current every day smoker Tobacco type: cigarettes Alcohol intake: never Substance use: never Do You Feel Safe in your Home?: Yes Lack of Transportation: No Lack of Food: Never True Current Housing: I Have Housing Concerned About Future Housing: No Difficulty Paying Gas/Electric Bills: No Difficulty Paying for Meds: No Currently Unemployed: No Education: Bachelor's Degree Difficulty w/ Childcare or Family Care: No Spiritual care concerns: No Meds Home Medications and Allergies Home Medications ?Medication ?Instructions ?Recorded ?Confirmed ?Type hydrochlorothiazide 25 mg tablet 25 mg PO DAILY #30 tabs 11/03/23 12/11/24 Rx lisinopril 40 mg tablet 40 mg PO DAILY #30 tabs 11/03/23 12/11/24 Rx amlodipine 10 mg tablet 10 mg PO DAILY 12/22/23 12/11/24 History amlodipine 10 mg tablet 10 mg PO DAILY 30 days #30 tabs 12/22/23 12/11/24 Rx hydrochlorothiazide 25 mg tablet 25 mg PO DAILY 30 days #30 tabs 12/22/23 12/11/24 Rx lisinopril 40 mg tablet 40 mg PO DAILY 30 days #30 tabs 12/22/23 12/11/24 Rx amlodipine 10 mg tablet 10 mg PO DAILY 60 days #60 tabs 01/20/24 12/11/24 Rx hydrochlorothiazide 25 mg tablet 25 mg PO DAILY 60 days #60 tabs 01/20/24 12/11/24 Rx lisinopril 40 mg tablet 40 mg PO DAILY 60 days #60 tabs 01/20/24 12/11/24 Rx albuterol sulfate 90 mcg/actuation 2 puff inhalation QID PRN 12/09/24 12/11/24 Rx aerosol inhaler shortness of breath or wheezing #6.7 grams amoxicillin 875 mg tablet 875 mg PO Q12H 10 days #20 tabs 12/09/24 12/11/24 Rx azithromycin 250 mg tablet See Rx Instructions PO .COMPLEX #6 12/09/24 12/11/24 Rx tabs inhalational spacing device #1 ea 12/09/24 12/11/24 Rx (Aerochamber MV spacer) prednisone 20 mg tablet 40 mg (2 x 20 mg) PO DAILY 5 days 12/09/24 12/11/24 Rx #10 tabs Allergies Allergy/AdvReac Type Severity Reaction Status Date / Time cephalexin Allergy Intermediate HIVES Verified 12/11/24 00:22 Vital Signs Vital Signs - 24 hr 12/10/24 16:54 12/10/24 17:48 12/10/24 17:49 Temperature 36.1 C L Pulse Rate 98 172 H Respiratory Rate 20 15 19 Blood Pressure 124/93 H 112/85 Pulse Oximetry 92 95 Oxygen Delivery Room Air Oxygen Flow Rate 12/10/24 18:37 12/10/24 18:42 12/10/24 18:47 Temperature Pulse Rate 164 H 151 H 146 H Respiratory Rate Blood Pressure Pulse Oximetry Oxygen Delivery Oxygen Flow Rate 12/10/24 18:53 12/10/24 20:00 12/10/24 22:50 Temperature Pulse Rate 146 H 88 141 H Respiratory Rate 19 21 H Blood Pressure 143/106 H 138/101 H 132/93 H Pulse Oximetry 95 94 Oxygen Delivery Oxygen Flow Rate 12/10/24 23:13 12/10/24 23:35 12/10/24 23:35 Temperature 36.7 C 36.7 C Pulse Rate 90 86 86 Respiratory Rate 22 H 34 H 34 H Blood Pressure 124/83 130/77 130/77 Pulse Oximetry 93 97 97 Oxygen Delivery Oxygen Flow Rate 12/11/24 00:00 12/11/24 01:45 12/11/24 01:45 Temperature Pulse Rate 90 156 H Respiratory Rate Blood Pressure 130/77 132/95 H Pulse Oximetry 95 86 L Oxygen Delivery Room Air Oxygen Flow Rate 12/11/24 01:46 12/11/24 01:48 12/11/24 01:56 Temperature Pulse Rate 77 Respiratory Rate Blood Pressure Pulse Oximetry 88 L 94 Oxygen Delivery Nasal Cannula Nasal Cannula Oxygen Flow Rate 2 4 12/11/24 02:00 12/11/24 02:00 12/11/24 02:25 Temperature Pulse Rate 92 92 80 Respiratory Rate Blood Pressure 132/95 H Pulse Oximetry Oxygen Delivery Oxygen Flow Rate 12/11/24 03:56 12/11/24 04:00 12/11/24 04:00 Temperature 37.1 C Pulse Rate 94 104 H Respiratory Rate 32 H Blood Pressure 129/91 H Pulse Oximetry 93 92 Oxygen Delivery High Flow Therapy with Na Oxygen Flow Rate 7 12/11/24 06:00 12/11/24 07:10 12/11/24 07:10 Temperature Pulse Rate 74 84 84 Respiratory Rate 20 20 Blood Pressure Pulse Oximetry 97 Oxygen Delivery High Flow Nasal Cannula Oxygen Flow Rate 9 12/11/24 07:20 12/11/24 07:48 12/11/24 08:00 Temperature 38.2 C H Pulse Rate 89 88 88 Respiratory Rate 20 28 H 28 H Blood Pressure 107/82 Pulse Oximetry 97 97 Oxygen Delivery High Flow Nasal Cannula Oxygen Flow Rate 7 12/11/24 08:00 12/11/24 08:51 12/11/24 09:10 Temperature 37.8 C H Pulse Rate 77 88 Respiratory Rate 24 H Blood Pressure Pulse Oximetry 100 Oxygen Delivery High Flow Nasal Cannula Oxygen Flow Rate 5 12/11/24 09:31 12/11/24 10:00 Temperature Pulse Rate 90 93 Respiratory Rate 24 H Blood Pressure Pulse Oximetry 94 Oxygen Delivery High Flow Nasal Cannula Oxygen Flow Rate 3 Exam 2 Const: General: in distress mild HENMT: Mouth: Yes dry mucous membranes Eyes: Sclera: sclerae normal Resp: Effort & Inspection: normal respiratory effort Cardio: Rate: regular rate Rhythm: regular rhythm Heart sounds: no murmurs Neuro: Other: Mentally altered Psych: Other: Mentally altered Results Labs and Meds 12/11/24 04:36 12/11/24 04:36 Lab results: Cardiac Enzymes 12/10/24 12/10/24 12/11/24 Range/Units 17:14 20:38 00:33 AST 88 H (17-59) U/L Troponin I 0.014 0.013 0.014 (0.000-0.034) ng/mL Coagulation 12/10/24 12/11/24 Range/Units 17:14 04:36 PT 14.2 14.9 H (11.1-14.7) Seconds APTT 26.9 (22.3-36.8) Seconds CBC 12/10/24 12/11/24 Range/Units 17:14 04:36 WBC 10.1 H 10.7 H (4.5-10.0) K/mm3 RBC 4.34 L 3.44 L (4.6-6.20) M/mm3 Hgb 14.4 11.5 L (14.0-18.0) g/dL Hct 40.6 L 33.5 L (42.0-52.0) % Plt Count 378 H 342 (150-375) k/mm3 Lymph # (Auto) 0.44 L 0.34 L (0.9-3.2) K/mm3 [place] # (Auto) 0.7 H 0.8 H (0.1-0.6) K/mm3 Eos # (Auto) 0.2 0.0 (0-0.3) K/mm3 Baso # (Auto) 0.1 0.1 (0.0-0.1) K/mm3 Comprehensive Metabolic Panel 12/10/24 12/11/24 Range/Units 17:14 04:36 Sodium 132 L 134 L (137-145) mmol/L Potassium 3.6 3.5 (3.4-5.0) mmol/L Chloride 93 L 100 (98-107) mmol/L Carbon Dioxide 26 26 (22-30) mmol/L BUN 61 H 47 H D (9-20) mg/dL Creatinine 1.26 1.01 (0.7-1.3) mg/dL Glucose 122 H 90 (65-110) mg/dL Calcium 9.5 8.7 (8.4-10.2) mg/dL AST 88 H (17-59) U/L ALT 60 H (6-50) U/L Alkaline Phosphatase 89 (38-126) U/L Total Protein 8.0 (6.3-8.2) g/dL Albumin 3.8 (3.5-5.1) g/dL Intake and Output 12/10/24 12/11/24 12/11/24 23:59 07:59 15:59 Intake Total 1999 767.9 Output Total 400 Balance 1999 367.9 Intake: IV 2000 17.9 Sodium Chloride 0.9% IV 2,000 2000 ml @ 999 mls/hr IV CONT .Q2H1M STA Rx#:[id number] dilTIAZem 100 MG/100 ML 100 mg 17.9 In 100 ml @ 5 MG/HR 5 mls/hr IV CONT .Q20H STA Rx#:[id number] Oral 750 Output: Urine 400 Patient Weight 12/11/24 23:59 Weight 70.8 kg
[2024-12-11] MEDS: METOPROLOL TARTRATE INJ 5 MG/5 ML VIAL IV PUSH ×3 (11:32→21:11)
[2024-12-11] MEDS: DEXTROSE 5%/0.9% SOD CHL 1,000 ML 100 ML IV CONT (11:50)
[2024-12-11 12:04] LABS: Glucose Point of Care 100 mg/dl (65-105)
[2024-12-11 17:53] LABS: Glucose Point of Care 144 mg/dl (65-105)
[2024-12-11] MEDS: DEXTROSE 5%/0.9% SOD CHL 1,000 ML 125 ML IV CONT (21:10)
[2024-12-11 22:12] LABS: Folic Acid 8.9 ng/mL (2.76->20)
[2024-12-11 23:53] LABS: Glucose Point of Care 152 mg/dl (65-105)
[2024-12-12] VITALS (46 sets, daily range): BP systolic 102–156; BP diastolic 71–102; PULSE 69–155; RESP 19–33; TEMP 36.1–38.2; O2SAT 93–100; BMI 21.2
[2024-12-12] MEDS: LORazepam INJ (*CRX) 2 MG/ML VIAL IV PUSH ×2 (01:57→05:54)
[2024-12-12] MEDS: CEFEPIME 2 GM/NS 50 ML 2 GM/50 ML BAG IVPB ×3 (01:57→17:51)
[2024-12-12] MEDS: METOPROLOL TARTRATE INJ 5 MG/5 ML VIAL IV PUSH ×3 (01:57→08:41)
[2024-12-12] MEDS: IPRATROPIUM 0.5 MG/ALBUTEROL SULFATE 2.5 MG AMPUL.NEB 3 ML INHALATION ×4 (02:17→20:33)
[2024-12-12 04:59] LABS: Base Excess ABG 2.9 mEq/l (+/-2.0); Fractional Inspired Oxygen 95 %; HCO3 ABG 28.5 mEq/l (22.0-26.0); Oxygen Content ABG 17.8 %vol (16.0-22.0); Oxygen Saturation ABG 99.4 % (95.0-100.0); Oxyhemoglobin 98.8 % THb (90.0-100.0); PCO2 ABG 47.9 mmHg (35.0-45.0); PO2 ABG 209.9 mmHg (80.0-100.0); PO2 FiO2 Ratio Arterial Blood 2.21 %; Total Hemoglobin 12.5 g/dL (12.0-18.0); pH ABG 7.393 (7.350-7.450)
[2024-12-12 05:00] LABS: Device NON-REBREATHER MASK; Site Drawn RIGHT BRACHIAL
[2024-12-12] MEDS: DEXTROSE 5%/0.9% SOD CHL 1,000 ML 125 ML IV CONT (05:53)
[2024-12-12 06:05] LABS: Glucose Point of Care 148 mg/dl (65-105)
[2024-12-12] MEDS: THIAMINE HCL 200 MG/2 ML VIAL 100 MG IV PUSH (08:41)
[2024-12-12] MEDS: ENOXAPARIN 80 MG/0.8 ML SYRINGE SUB-Q (08:42)
[2024-12-12] MEDS: FOLIC ACID 1 MG/0.2 ML INJ IV PUSH (08:42)
--- NOTE | 2024-12-12 08:57 | PM.IMPN ---
Progress Note: A&P Assessment and Plan (1) Multifocal pneumonia: Code(s): J18.9 - Pneumonia, unspecified organism Status: Acute (2) Influenza A: Code(s): J10.1 - Influenza due to other identified influenza virus with other respiratory manifestations Status: Acute (3) Atrial fibrillation: Code(s): I48.91 - Unspecified atrial fibrillation Status: Deleted (4) COPD with emphysema: Code(s): J43.9 - Emphysema, unspecified Status: Acute (5) Tobacco dependence: Code(s): F17.200 - Nicotine dependence, unspecified, uncomplicated Status: Acute Plan 64 years old man with history of COPD, tobacco dependence, present ED with a chief complaint of productive cough more than 3 weeks and shortness breath. In the ED, patient was found have AFib RVR. Further workup in the ED showed multifocal pneumonia, positive influenza a infection Multifocal pneumonia: Code(s): J18.9 - Pneumonia, unspecified organism Status: Acute Assessment and Plan: Upon arrival in the ED, patient was found have leukocytosis 10,700, influenza A positive X-ray shows multifocal pneumonia Consistent pneumonia due to viral and better infection Admit to IMU Continue Zithromax, Tamiflu p.o. change to cefepime Cultures of blood has no growth so far Influenza A: Code(s): J10.1 - Influenza due to other identified influenza virus with other respiratory manifestations Status: Acute Assessment and Plan: Supportive care Atrial fibrillation: Code(s): I48.91 - Unspecified atrial fibrillation Status: Acute Assessment and Plan: On diltiazem drip p.r.n. Consult broadloom weaver for evaluation treatment COPD with emphysema, and COPD exacerbation Code(s): J43.9 - Emphysema, unspecified Status: Acute Assessment and Plan: Resulting from multifocal pneumonia and influenza a infection Start DuoNeb scheduled, levobunolol p.r.n. O2 therapy p.r.n. Acute respiratory failure Possible due to COPD exacerbation, pneumonia and alcohol withdrawal Management see above severe Alcohol withdrawal Patient is on Librium 50 mg q.6 hours p.o., patient cannot take medication orally Start Ativan IV p.r.n. based on CIWA score Start folic acid and thiamine Patient still agitated after receiving frequent Ativan IV push Consult warehouse worker for evaluation and treatment Dehydration Elevated BUN creatinine ratio 47/1.0, dry mucous membrane Start D5 normal saline 125 mL/hour Tobacco dependence: Code(s): F17.200 - Nicotine dependence, unspecified, uncomplicated Status: Acute Assessment and Plan: Nicotine patch as needed Patient condition is critical, move patient to ICU for close monitoring and treatment Subjective Date/time seen: 12/12/24 08:57 Interval history: I saw and examined patient today. Patient was confused, agitated, patient could not provide any information. Patient received Ativan push every 2 hours for alcohol withdrawal syndrome. Afebrile over the night, heart rate is controlled, blood pressure stable, patient is on 5 L oxygen. Patient has been on high dose Ativan IV push, patient still agitated. f/u CXR, lactic acid, ABG. Consult warehouse worker for evaluation. Appreciate warehouse worker consultation, patient will be moved to ICU for close monitoring and treatment Exam Narrative: GENERAL: Ill-appearing, in no acute distress. Well-nourished. - EYES: EOMI. Anicteric. - HENT: Dry mucous membranes. - LUNGS: Coarse breath sound bilaterally, no wheezing, rhonchi, or rales. Tachypnea - CARDIOVASCULAR: Irregular irregular rhythm, tachycardia No murmur. No JVD. - ABDOMEN: Soft, non-tender and non-distended. No palpable masses. - EXTREMITIES: No edema. Peripheral pulses 2+. Non-tender. - NEUROLOGIC: No focal neurological deficits. CN II-XII grossly intact. - PSYCHIATRIC: Confused not oriented x 3. Agitated mood and affect. - SKIN: No rashes or lesions. Warm. - LYMPH: No cervical lymphadenopathy. Objective Data Vital Signs Vital Signs: Vital Signs - 24 hr 12/11/24 09:10 12/11/24 09:31 12/11/24 10:00 Temperature Pulse Rate 88 90 93 Respiratory Rate 24 H 24 H Blood Pressure Pulse Oximetry 100 94 Oxygen Delivery High Flow Nasal Cannula High Flow Nasal Cannula Oxygen Flow Rate 5 3 12/11/24 10:00 12/11/24 11:00 12/11/24 11:30 Temperature Pulse Rate Respiratory Rate Blood Pressure Pulse Oximetry 98 95 84 L Oxygen Delivery High Flow Nasal Cannula Room Air Nasal Cannula Oxygen Flow Rate 1 2 12/11/24 11:32 12/11/24 11:57 12/11/24 12:00 Temperature 100.1 F H Pulse Rate 170 H 91 173 H Respiratory Rate 30 H 33 H Blood Pressure 124/78 Pulse Oximetry 89 L 91 Oxygen Delivery Nasal Cannula Oxygen Flow Rate 4 12/11/24 12:00 12/11/24 13:05 12/11/24 13:15 Temperature Pulse Rate 90 108 H 104 H Respiratory Rate 20 20 Blood Pressure Pulse Oximetry Oxygen Delivery Oxygen Flow Rate 12/11/24 14:00 12/11/24 15:49 12/11/24 15:50 Temperature 99.3 F Pulse Rate 92 95 109 H Respiratory Rate 28 H Blood Pressure 131/79 Pulse Oximetry 100 Oxygen Delivery Oxygen Flow Rate 12/11/24 15:54 12/11/24 16:00 12/11/24 18:00 Temperature Pulse Rate 109 H 73 82 Respiratory Rate 28 H Blood Pressure Pulse Oximetry 100 Oxygen Delivery Nasal Cannula Oxygen Flow Rate 4 12/11/24 19:35 12/11/24 20:00 12/11/24 20:00 Temperature 97.4 F L Pulse Rate 89 76 Respiratory Rate 28 H Blood Pressure 121/89 Pulse Oximetry 97 95 Oxygen Delivery Nasal Cannula Oxygen Flow Rate 4 12/11/24 21:10 12/11/24 21:11 12/11/24 21:20 Temperature Pulse Rate 71 107 H 78 Respiratory Rate 20 20 Blood Pressure Pulse Oximetry Oxygen Delivery Oxygen Flow Rate 12/11/24 22:00 12/11/24 23:38 12/12/24 00:00 Temperature 97.7 F Pulse Rate 79 87 Respiratory Rate 24 H Blood Pressure 134/67 Pulse Oximetry 90 94 Oxygen Delivery Nasal Cannula Oxygen Flow Rate 4 12/12/24 00:00 12/12/24 01:55 12/12/24 01:57 Temperature Pulse Rate 75 79 80 Respiratory Rate Blood Pressure 129/82 Pulse Oximetry Oxygen Delivery Oxygen Flow Rate 12/12/24 02:00 12/12/24 02:00 12/12/24 02:18 Temperature Pulse Rate 91 86 Respiratory Rate 26 H Blood Pressure Pulse Oximetry 94 Oxygen Delivery Nasal Cannula Oxygen Flow Rate 4 12/12/24 02:30 12/12/24 03:59 12/12/24 04:00 Temperature 98.9 F Pulse Rate 91 81 85 Respiratory Rate 26 H 28 H Blood Pressure 140/82 Pulse Oximetry 97 Oxygen Delivery Oxygen Flow Rate 12/12/24 04:00 12/12/24 05:53 12/12/24 06:00 Temperature Pulse Rate 155 H 153 H Respiratory Rate Blood Pressure Pulse Oximetry 99 Oxygen Delivery Non-Rebreather Mask Oxygen Flow Rate 15 12/12/24 08:12 12/12/24 08:24 12/12/24 08:24 Temperature 98.2 F Pulse Rate 92 84 84 Respiratory Rate 20 20 20 Blood Pressure 156/102 H Pulse Oximetry 96 98 Oxygen Delivery Nasal Cannula Oxygen Flow Rate 5 12/12/24 08:31 Temperature Pulse Rate 74 Respiratory Rate 20 Blood Pressure Pulse Oximetry Oxygen Delivery Oxygen Flow Rate Intake/Output Intake/Output: Intake & Output 12/09/24 12/10/24 12/11/24 12/12/24 23:59 23:59 23:59 23:59 Intake Total 1999 1801.2 1050 Output Total 1200 1250 Balance 1999 601.2 -200 Meds/Results Medications: Active Medications Generic Name Dose Route Start Last Admin Trade Name Freq PRN Reason Stop Dose Admin Acetaminophen 650 mg 12/11/24 07:58 Acetaminophen 325 Mg Tablet PO Q4H PRN Mild Pain (1-3) or Fever Albuterol 2 puff 12/11/24 00:26 Albuterol Sulfate (*Sp) Aerosol 1 Puff INHALATION QIDRT PRN shortness of breath or wheezing Albuterol/Ipratropium 3 ml 12/11/24 02:00 12/12/24 08:20 Ipratropium 0.5 Mg/Albuterol Sulfate 2.5 Mg Ampul.Neb 3 Ml INHALATION 3 ml Q6HRT SANTIAGO Administration Amlodipine Besylate 10 mg 12/11/24 09:00 12/12/24 08:39 Amlodipine Besylate 10 Mg Tablet PO Not Given DAILY SANTIAGO Chlordiazepoxide HCl 50 mg 12/11/24 06:00 12/11/24 05:04 Chlordiazepoxide (*Crx) 25 Mg Capsule PO 50 mg Q6HR SANTIAGO Administration Dextrose 12.5 gm 12/11/24 11:48 Dextrose 50% 25 Gm/50 Ml Syringe IV PUSH PRN PRN Hypoglycemia Protocol Enoxaparin Sodium 80 mg 12/11/24 10:00 12/12/24 08:42 Enoxaparin 80 Mg/0.8 Ml Syringe SUB-Q 80 mg Q12HR SANTIAGO Administration Folic Acid 1 mg 12/11/24 09:00 12/12/24 08:42 Folic Acid 1 Mg/0.2 Ml Inj IV PUSH 1 mg QAM SANTIAGO Administration Glucagon 1 mg 12/11/24 11:48 Glucagon For Inj 1 Mg Vial IM PRN PRN Hypoglycemia Protocol Glucose 15 gm 12/11/24 11:48 Glucose Oral Gel 15 Gm Of Glucse In 37.5 Gm Tube PO PRN PRN Hypoglycemia Protocol Cefepime HCl 2 gm in 50 mls @ 100 mls/hr 12/11/24 09:00 12/12/24 08:42 Maxipime 2 Gm/Ns 50 Ml IVPB 100 mls/hr Q8H SANTIAGO Administration Dextrose/Sodium Chloride 1,000 mls @ 125 mls/hr 12/11/24 11:50 12/12/24 05:53 Dextrose 5% Sodium Chloride 0.9% IV CONT 125 mls/hr .Q8H SANTIAGO Administration Dextrose 1,000 mls @ 100 mls/hr 12/11/24 11:48 Dextrose 5% 1,000 Ml IVPB PRN PRN Hypoglycemia Protocol Levalbuterol HCl 0.63 mg 12/11/24 09:00 Levalbuterol Neb 1.25 Mg/3 Ml INHALATION Q6HRT PRN Dryness Lorazepam 2 mg 12/11/24 04:19 12/12/24 01:57 Lorazepam Inj (*Crx) 2 Mg/Ml Vial IV PUSH 2 mg Q4H PRN Administration CIWA >8 Lorazepam 2 mg 12/11/24 11:44 12/11/24 14:02 Lorazepam Inj (*Crx) 2 Mg/Ml Vial IV PUSH 2 mg Q2H PRN Administration CIWA > 15 Metoprolol Tartrate 5 mg 12/12/24 01:00 12/12/24 08:41 Metoprolol Tartrate Inj 5 Mg/5 Ml Vial IV PUSH 5 mg Q4H SANTIAGO Administration Ondansetron HCl 4 mg 12/11/24 04:19 Ondansetron Inj 4 Mg/2 Ml Vial IV PUSH Q6H PRN Nausea And Vomiting Oseltamivir Phosphate 30 mg 12/11/24 09:00 12/12/24 08:39 Oseltamivir Phosphate 30 Mg Capsule PO 12/15/24 09:01 Not Given Q12HR SANTIAGO Perflutren Lipid Microsphere 0 ml 12/11/24 11:06 Perflutren Lipid Microspheres 1.5 Ml Vial Diluted To 10 Ml Total Volume IV PUSH 12/14/24 11:06 ONCE PRN adequate visualization Protocol Thiamine HCl 100 mg 12/11/24 09:00 12/12/24 08:41 Thiamine Hcl 200 Mg/2 Ml Vial IV PUSH 100 mg QAM SANTIAGO Administration Radiology Results: ITS Impressions Chest CTA 12/10/24 19:15 IMPRESSION: No pulmonary embolism. No aortic dissection. Multifocal pneumonia. Labs Labs: Laboratory Results - last 24 hr 12/11/24 12/11/24 12/11/24 00:30 04:31 11:35 Puncture Site ABG pH ABG pCO2 ABG pO2 ABG PO2/FiO2 Ratio ABG HCO3 ABG O2 Saturation ABG O2 Content ABG Base Excess A-a Gradient Oxyhemoglobin Total Hemoglobin O2 Delivery Device O2 Liters/Min FiO2 POC Capillary Glucose 100 Vitamin B12 653.0 Folate 8.9 TSH 1.860 12/11/24 12/11/24 12/12/24 17:51 23:51 04:50 Puncture Site Right brachial ABG pH 7.393 ABG pCO2 47.9 H ABG pO2 209.9 H ABG PO2/FiO2 Ratio 2.21 ABG HCO3 28.5 H ABG O2 Saturation 99.4 ABG O2 Content 17.8 ABG Base Excess 2.9 A-a Gradient 419.0 Oxyhemoglobin 98.8 Total Hemoglobin 12.5 O2 Delivery Device Non-rebreather mask O2 Liters/Min 15.0 FiO2 95 POC Capillary Glucose 144 H 152 H Vitamin B12 Folate TSH 12/12/24 06:00 Puncture Site ABG pH ABG pCO2 ABG pO2 ABG PO2/FiO2 Ratio ABG HCO3 ABG O2 Saturation ABG O2 Content ABG Base Excess A-a Gradient Oxyhemoglobin Total Hemoglobin O2 Delivery Device O2 Liters/Min FiO2 POC Capillary Glucose 148 H Vitamin B12 Folate TSH
--- NOTE | 2024-12-12 09:12 | PM.PNCARD ---
Progress Note: A&P Assessment and Plan (1) Alcohol withdrawal: Code(s): F10.939 - Alcohol use, unspecified with withdrawal, unspecified Status: Acute (2) SVT (supraventricular tachycardia): Code(s): I47.10 - Supraventricular tachycardia, unspecified Status: Acute (3) Influenza A: Code(s): J10.1 - Influenza due to other identified influenza virus with other respiratory manifestations Status: Acute Plan 64-year-old man with alcohol abuse is admitted for alcohol withdrawal, influenza a infection, and supraventricular tachycardia SVT -most likely in setting of alcohol withdrawal and influenza a infection -continue IV metoprolol Influenza a infection -on oseltamivir Alcohol withdrawal -on Librium Subjective Date/time seen: 12/12/24 09:12 Interval history: Patient is still confused and in withdrawal. He does not engage in conversation Review of Systems Review of Systems: Unable to obtain due to his mental status Exam Eyes: EOM: EOMs intact bilaterally Neck: Neck: no JVD Resp: Effort & Inspection: normal respiratory effort Cardio: Rate: regular rate Rhythm: regular rhythm Heart sounds: no murmurs GI: GI Palp: Yes Soft to palpation Extrem: General: no pedal edema Objective Data Vital Signs Vital Signs: Vital Signs - 24 hr 12/11/24 09:31 12/11/24 10:00 12/11/24 10:00 Temperature Pulse Rate 90 93 Respiratory Rate 24 H Blood Pressure Pulse Oximetry 94 98 Oxygen Delivery High Flow Nasal Cannula High Flow Nasal Cannula Oxygen Flow Rate 3 1 12/11/24 11:00 12/11/24 11:30 12/11/24 11:32 Temperature Pulse Rate 170 H Respiratory Rate Blood Pressure Pulse Oximetry 95 84 L Oxygen Delivery Room Air Nasal Cannula Oxygen Flow Rate 2 12/11/24 11:57 12/11/24 12:00 12/11/24 12:00 Temperature 37.8 C H Pulse Rate 91 173 H 90 Respiratory Rate 30 H 33 H Blood Pressure 124/78 Pulse Oximetry 89 L 91 Oxygen Delivery Nasal Cannula Oxygen Flow Rate 4 12/11/24 13:05 12/11/24 13:15 12/11/24 14:00 Temperature Pulse Rate 108 H 104 H 92 Respiratory Rate 20 20 Blood Pressure Pulse Oximetry Oxygen Delivery Oxygen Flow Rate 12/11/24 15:49 12/11/24 15:50 12/11/24 15:54 Temperature 37.4 C Pulse Rate 95 109 H 109 H Respiratory Rate 28 H 28 H Blood Pressure 131/79 Pulse Oximetry 100 100 Oxygen Delivery Nasal Cannula Oxygen Flow Rate 4 12/11/24 16:00 12/11/24 18:00 12/11/24 19:35 Temperature 36.3 C L Pulse Rate 73 82 89 Respiratory Rate 28 H Blood Pressure 121/89 Pulse Oximetry 97 Oxygen Delivery Oxygen Flow Rate 12/11/24 20:00 12/11/24 20:00 12/11/24 21:10 Temperature Pulse Rate 76 71 Respiratory Rate 20 Blood Pressure Pulse Oximetry 95 Oxygen Delivery Nasal Cannula Oxygen Flow Rate 4 12/11/24 21:11 12/11/24 21:20 12/11/24 22:00 Temperature Pulse Rate 107 H 78 79 Respiratory Rate 20 Blood Pressure Pulse Oximetry Oxygen Delivery Oxygen Flow Rate 12/11/24 23:38 12/12/24 00:00 12/12/24 00:00 Temperature 36.5 C Pulse Rate 87 75 Respiratory Rate 24 H Blood Pressure 134/67 Pulse Oximetry 90 94 Oxygen Delivery Nasal Cannula Oxygen Flow Rate 4 12/12/24 01:55 12/12/24 01:57 12/12/24 02:00 Temperature Pulse Rate 79 80 Respiratory Rate Blood Pressure 129/82 Pulse Oximetry 94 Oxygen Delivery Nasal Cannula Oxygen Flow Rate 4 12/12/24 02:00 12/12/24 02:18 12/12/24 02:30 Temperature Pulse Rate 91 86 91 Respiratory Rate 26 H 26 H Blood Pressure Pulse Oximetry Oxygen Delivery Oxygen Flow Rate 12/12/24 03:59 12/12/24 04:00 12/12/24 04:00 Temperature 37.2 C Pulse Rate 81 85 Respiratory Rate 28 H Blood Pressure 140/82 Pulse Oximetry 97 99 Oxygen Delivery Non-Rebreather Mask Oxygen Flow Rate 15 12/12/24 05:53 12/12/24 06:00 12/12/24 08:12 Temperature 36.8 C Pulse Rate 155 H 153 H 92 Respiratory Rate 20 Blood Pressure 156/102 H Pulse Oximetry 96 Oxygen Delivery Oxygen Flow Rate 12/12/24 08:24 12/12/24 08:24 12/12/24 08:31 Temperature Pulse Rate 84 84 74 Respiratory Rate 20 20 20 Blood Pressure Pulse Oximetry 98 Oxygen Delivery Nasal Cannula Oxygen Flow Rate 5 Intake/Output Intake/Output: Intake & Output 12/09/24 12/10/24 12/11/24 12/12/24 23:59 23:59 23:59 23:59 Intake Total 1999 1801.2 1050 Output Total 1200 1250 Balance 1999 601.2 -200 Meds/Results Medications: Active Medications Generic Name Dose Route Start Last Admin Trade Name Freq PRN Reason Stop Dose Admin Acetaminophen 650 mg 12/11/24 07:58 Acetaminophen 325 Mg Tablet PO Q4H PRN Mild Pain (1-3) or Fever Albuterol 2 puff 12/11/24 00:26 Albuterol Sulfate (*Sp) Aerosol 1 Puff INHALATION QIDRT PRN shortness of breath or wheezing Albuterol/Ipratropium 3 ml 12/11/24 02:00 12/12/24 08:20 Ipratropium 0.5 Mg/Albuterol Sulfate 2.5 Mg Ampul.Neb 3 Ml INHALATION 3 ml Q6HRT SANTIAGO Administration Amlodipine Besylate 10 mg 12/11/24 09:00 12/12/24 08:39 Amlodipine Besylate 10 Mg Tablet PO Not Given DAILY SANTIAGO Chlordiazepoxide HCl 50 mg 12/11/24 06:00 12/11/24 05:04 Chlordiazepoxide (*Crx) 25 Mg Capsule PO 50 mg Q6HR SANTIAGO Administration Dextrose 12.5 gm 12/11/24 11:48 Dextrose 50% 25 Gm/50 Ml Syringe IV PUSH PRN PRN Hypoglycemia Protocol Enoxaparin Sodium 80 mg 12/11/24 10:00 12/12/24 08:42 Enoxaparin 80 Mg/0.8 Ml Syringe SUB-Q 80 mg Q12HR SANTIAGO Administration Folic Acid 1 mg 12/11/24 09:00 12/12/24 08:42 Folic Acid 1 Mg/0.2 Ml Inj IV PUSH 1 mg QAM SANTIAGO Administration Glucagon 1 mg 12/11/24 11:48 Glucagon For Inj 1 Mg Vial IM PRN PRN Hypoglycemia Protocol Glucose 15 gm 12/11/24 11:48 Glucose Oral Gel 15 Gm Of Glucse In 37.5 Gm Tube PO PRN PRN Hypoglycemia Protocol Cefepime HCl 2 gm in 50 mls @ 100 mls/hr 12/11/24 09:00 12/12/24 08:42 Maxipime 2 Gm/Ns 50 Ml IVPB 100 mls/hr Q8H SANTIAGO Administration Dextrose/Sodium Chloride 1,000 mls @ 125 mls/hr 12/11/24 11:50 12/12/24 05:53 Dextrose 5% Sodium Chloride 0.9% IV CONT 125 mls/hr .Q8H SANTIAGO Administration Dextrose 1,000 mls @ 100 mls/hr 12/11/24 11:48 Dextrose 5% 1,000 Ml IVPB PRN PRN Hypoglycemia Protocol Levalbuterol HCl 0.63 mg 12/11/24 09:00 Levalbuterol Neb 1.25 Mg/3 Ml INHALATION Q6HRT PRN Dryness Lorazepam 2 mg 12/11/24 04:19 12/12/24 01:57 Lorazepam Inj (*Crx) 2 Mg/Ml Vial IV PUSH 2 mg Q4H PRN Administration CIWA >8 Lorazepam 2 mg 12/11/24 11:44 12/11/24 14:02 Lorazepam Inj (*Crx) 2 Mg/Ml Vial IV PUSH 2 mg Q2H PRN Administration CIWA > 15 Metoprolol Tartrate 5 mg 12/12/24 01:00 12/12/24 08:41 Metoprolol Tartrate Inj 5 Mg/5 Ml Vial IV PUSH 5 mg Q4H SANTIAGO Administration Ondansetron HCl 4 mg 12/11/24 04:19 Ondansetron Inj 4 Mg/2 Ml Vial IV PUSH Q6H PRN Nausea And Vomiting Oseltamivir Phosphate 30 mg 12/11/24 09:00 12/12/24 08:39 Oseltamivir Phosphate 30 Mg Capsule PO 12/15/24 09:01 Not Given Q12HR SANTIAGO Perflutren Lipid Microsphere 0 ml 12/11/24 11:06 Perflutren Lipid Microspheres 1.5 Ml Vial Diluted To 10 Ml Total Volume IV PUSH 12/14/24 11:06 ONCE PRN adequate visualization Protocol Thiamine HCl 100 mg 12/11/24 09:00 12/12/24 08:41 Thiamine Hcl 200 Mg/2 Ml Vial IV PUSH 100 mg QAM SANTIAGO Administration Radiology Results: ITS Impressions Chest CTA 12/10/24 19:15 IMPRESSION: No pulmonary embolism. No aortic dissection. Multifocal pneumonia. Labs Labs: Laboratory Results - last 24 hr 12/11/24 12/11/24 12/11/24 00:30 04:31 11:35 Puncture Site ABG pH ABG pCO2 ABG pO2 ABG PO2/FiO2 Ratio ABG HCO3 ABG O2 Saturation ABG O2 Content ABG Base Excess A-a Gradient Oxyhemoglobin Total Hemoglobin O2 Delivery Device O2 Liters/Min FiO2 POC Capillary Glucose 100 Vitamin B12 653.0 Folate 8.9 TSH 1.860 12/11/24 12/11/24 12/12/24 17:51 23:51 04:50 Puncture Site Right brachial ABG pH 7.393 ABG pCO2 47.9 H ABG pO2 209.9 H ABG PO2/FiO2 Ratio 2.21 ABG HCO3 28.5 H ABG O2 Saturation 99.4 ABG O2 Content 17.8 ABG Base Excess 2.9 A-a Gradient 419.0 Oxyhemoglobin 98.8 Total Hemoglobin 12.5 O2 Delivery Device Non-rebreather mask O2 Liters/Min 15.0 FiO2 95 POC Capillary Glucose 144 H 152 H Vitamin B12 Folate TSH 12/12/24 06:00 Puncture Site ABG pH ABG pCO2 ABG pO2 ABG PO2/FiO2 Ratio ABG HCO3 ABG O2 Saturation ABG O2 Content ABG Base Excess A-a Gradient Oxyhemoglobin Total Hemoglobin O2 Delivery Device O2 Liters/Min FiO2 POC Capillary Glucose 148 H Vitamin B12 Folate TSH
[2024-12-12 09:27] LABS: Basophils Percent Auto 0.2 % (0.2-1.2); Hematocrit 35.8 % (42.0-52.0); Hemoglobin 11.9 g/dL (14.0-18.0); Immature Granulocyte Absolute 0.09 K/mm3 (0.00-0.031); Lymphocytes Absolute Auto 0.36 K/mm3 (0.9-3.2); Lymphocytes Percent Auto 4.2 % (18.3-44.2); Mean Corpuscular HGB Conc 33.2 g/dl (32-36); Mean Corpuscular Hemoglobin 33.1 pg (26-34); Mean Corpuscular Volume 99.4 fl (80-100); Mean Platelet Volume 9.2 fl (7.4-10.4); Monocytes Absolute Auto 0.6 K/mm3 (0.1-0.6); Monocytes Percent Auto 7.4 % (2.6-8.5); Neutrophils Absolute Auto 7.6 K/mm3 (1.3-6.7); Neutrophils Percent Auto 87.2 % (45.5-73.1); Platelet Count Result 309 k/mm3 (150-375); Red Cell Distribution Width 13.6 % (11.5-14.5); White Blood Count 8.7 K/mm3 (4.5-10.0)
[2024-12-12 09:41] LABS: Lactic Acid Reflex 1.2 mmol/L (0.7-2.0)
[2024-12-12 09:46] LABS: Alanine Aminotransferase 41 U/L (6-50); Albumin Level 3.1 g/dL (3.5-5.1); Alkaline Phosphatase 71 U/L (38-126); Anion Gap 3 mmol/L (4-12); Aspartate Amino Transferase 49 U/L (17-59); Bilirubin,Total 1.2 mg/dL (0.2-1.3); Blood Urea Nitrogen 16 mg/dL (9-20); Calcium 8.4 mg/dL (8.4-10.2); Carbon Dioxide 36 mmol/L (22-30); Chloride 107 mmol/L (98-107); Estimated CRCL calculation 95 ml/min; Estimated Glomerular Filt Rate > 60; Glucose 121 mg/dL (65-110); Magnesium 2.3 mg/dL (1.6-2.3); Phosphorus 1.9 mg/dL (2.5-4.5); Potassium 3.2 mmol/L (3.4-5.0); Sodium 146 mmol/L (137-145)
[2024-12-12] MEDS: ETOMIDATE 20 MG/10 ML AMPUL 24 MG IV PUSH (09:47)
[2024-12-12] MEDS: ROCURONIUM BROMIDE 50 MG/5 ML VIAL IV PUSH (09:48)
[2024-12-12] MEDS: PROPOFOL IV EMULSION 100 ML 2.07 MG IV CONT (09:59)
[2024-12-12 10:11] LABS: Triglycerides 347 mg/dL (<150)
--- NOTE | 2024-12-12 10:12 | PCRCNOTE ---
Routine ABG ordered at 0903 was not obtained due to patient moved to ICU for intubation.
[2024-12-12] MEDS: LIDOCAINE 1% PF INJ 5 ML VIAL INFILTRATE (10:30)
[2024-12-12 11:16] LABS: Thyroid Stimulating Hormone Reflex 0.903 uIU/mL (0.465-4.68)
[2024-12-12 11:47] LABS: Alveolar/Arterial O2 Gradient 284.2 mmHg; Base Excess ABG 0.8 mEq/l (+/-2.0); Fractional Inspired Oxygen 100 %; HCO3 ABG 27.1 mEq/l (22.0-26.0); Oxygen Content ABG 18.4 %vol (16.0-22.0); Oxygen Saturation ABG 99.8 % (95.0-100.0); Oxyhemoglobin 99.3 % THb (90.0-100.0); PCO2 ABG 50.2 mmHg (35.0-45.0); PO2 ABG 378.6 mmHg (80.0-100.0); PO2 FiO2 Ratio Arterial Blood 3.79 %; Site Drawn LEFT BRACHIAL; Total Hemoglobin 12.5 g/dL (12.0-18.0)
[2024-12-12 11:48] LABS: Arterial Blood Gas PEEP 8 cmH2O; Arterial Blood Gas Tidal Volume 480 ml; Arterial Blood Gas Vent Mode CMV; Arterial Blood Gas Ventilator rate 20 /MIN; Device VENTILATOR
--- NOTE | 2024-12-12 13:00 | WPDCNINT ---
Assessment and Plan Assessment and plan (1) Acute respiratory failure: Code(s): J96.00 - Acute respiratory failure, unspecified whether with hypoxia or hypercapnia Status: Acute Assessment and Plan: 12/12: Acute respiratory failure/impending respiratory failure likely related to altered mentation secondary to alcohol withdrawal, respiratory distress due to pneumonia and influenza A, COPD/emphysema -12/12: Intubated in the ICU -currently on CMV mode of ventilation, peep of 8 and 100% FiO2, will wean FiO2 once ABGs are reported -continue bronchodilators given history of COPD -Sedated with propofol, maintain RASS of 0 to -2, daily SBT and SAT (2) Multifocal pneumonia: Code(s): J18.9 - Pneumonia, unspecified organism Status: Acute Assessment and Plan: 12/10: CT chest PE protocol was negative for PE, but showed bilateral multifocal pneumonia -chest x-ray also showed bilateral multifocal pneumonia -continue cefepime doxycycline, vancomycin (12/12) 12/10: Blood cultures negative x2 12/12: Sputum cultures obtained and pending (3) COPD with emphysema: Code(s): J43.9 - Emphysema, unspecified Status: Acute Assessment and Plan: History of COPD/emphysema -currently on mechanical ventilation, continue bronchodilators (4) SVT (supraventricular tachycardia): Code(s): I47.10 - Supraventricular tachycardia, unspecified Status: Acute Assessment and Plan: Patient went into SVT on admission, appreciate cardiology evaluation and recommendation likely related to respiratory distress from pneumonia, influenza, alcohol withdrawal. -patient was started on metoprolol IV p.r.n. -currently in sinus rhythm, rate control, will hold metoprolol for now (5) Alcohol withdrawal: Code(s): F10.939 - Alcohol use, unspecified with withdrawal, unspecified Status: Acute Assessment and Plan: Patient does have a history of significant alcohol use -elevated CIWA -received multiple doses of Ativan -when I evaluated the patient he was confused, tremulous, in withdrawal -currently intubated and sedated (6) Tobacco dependence: Code(s): F17.200 - Nicotine dependence, unspecified, uncomplicated Status: Acute Assessment and Plan: Will credit support counselor patient on cessation once you is off the ventilator (7) Electrolyte abnormality: Code(s): E87.8 - Other disorders of electrolyte and fluid balance, not elsewhere classified Status: Acute Assessment and Plan: Will replace potassium Plan DVT prophylaxis: heparin SQ Stress ulcer prophylaxis: Protonix Nutrition: Trickle tube feeds Code Status: Full code Critical Care Time Spent: 53 minutes Due to a high probability of clinically significant, life threatening deterioration, the patient required my highest level of preparedness to intervene emergently and I personally spent this critical care time directly and personally managing the patient. This critical care time included obtaining a history; examining the patient; pulse oximetry; ordering and review of studies; arranging urgent treatment with development of a management plan; evaluation of patient's response to treatment; frequent reassessment; and discussions with other providers. It was exclusive of separately billable procedures and treating other patients and teaching time. Please see Assessment and Plan section and the rest of the note for further information on patient assessment and treatment This dictation may have been done utilizing a voice recognition system. Attempts have been made to correct errors. However, there may be uncorrected grammatical, spelling, and recognitions errors present. [employer] Consult Note Consult date: 12/12/24 Reason for consult: Acute respiratory failure, pneumonia, influenza A, alcohol withdrawal, supraventricular tachycardia HPI: Jesse Rodríguez is a 64 year old male with past medical history of essential hypertension and alcohol dependence, presented the ED on 12/10/2024 complains of shortness of breath, cough, pneumonia. Patient complained of shortness of breath and coughing for the last 3 months, was seen a day prior to admission and was given diagnosis of pneumonia at an urgent care. He received breathing treatments and steroid and a recommended to come to the ER. In the ED CT PE protocol was negative for pulmonary embolism but did show multifocal pneumonia. Viral swab was positive for influenza A, negative for RSV and COVID. Patient was started on Tamiflu. He also went into SVT with heart rates in the 160s, was given diltiazem and started on a diltiazem infusion. He also received a therapeutic dose of Lovenox. Patient was transferred to intermediate Unit. 12/12: I was asked to see the patient in the intermediate Unit, he was getting more agitated, short of breath, increased secretions, tachycardia. Upon my evaluation patient was using accessory muscles of respiration, patient was awake but confused, was not answering questions or following simple commands. I decided to intubate the patient for airway protection and impending respiratory failure since his chest x-ray seems to have worsened this morning. Intubation was uneventful and patient tolerated well Review of Systems Review of Systems: ROS unobtainable: Yes unobtainable due to endotracheal tube, unobtainable due to medical condition and unobtainable due to mental status PMFSH Past Medical History Medical History Hypertension Family History Family History Father Dementia Sibling Alcohol abuse Social History Social History Smoking packs per day: 1 Smoking cigarettes per day: 20.0 Years smoked: 5 Smoking pack-years: 5.00 Smoking status: Current every day smoker Tobacco type: cigarettes Alcohol intake: never Substance use: never Do You Feel Safe in your Home?: Yes Lack of Transportation: No Lack of Food: Never True Current Housing: I Have Housing Concerned About Future Housing: No Difficulty Paying Gas/Electric Bills: No Difficulty Paying for Meds: No Currently Unemployed: No Education: Bachelor's Degree Difficulty w/ Childcare or Family Care: No Spiritual care concerns: No Meds Home Medications and Allergies Home Medications ?Medication ?Instructions ?Recorded ?Confirmed ?Type hydrochlorothiazide 25 mg tablet 25 mg PO DAILY #30 tabs 11/03/23 12/11/24 Rx lisinopril 40 mg tablet 40 mg PO DAILY #30 tabs 11/03/23 12/11/24 Rx amlodipine 10 mg tablet 10 mg PO DAILY 12/22/23 12/11/24 History amlodipine 10 mg tablet 10 mg PO DAILY 30 days #30 tabs 12/22/23 12/11/24 Rx hydrochlorothiazide 25 mg tablet 25 mg PO DAILY 30 days #30 tabs 12/22/23 12/11/24 Rx lisinopril 40 mg tablet 40 mg PO DAILY 30 days #30 tabs 12/22/23 12/11/24 Rx amlodipine 10 mg tablet 10 mg PO DAILY 60 days #60 tabs 01/20/24 12/11/24 Rx hydrochlorothiazide 25 mg tablet 25 mg PO DAILY 60 days #60 tabs 01/20/24 12/11/24 Rx lisinopril 40 mg tablet 40 mg PO DAILY 60 days #60 tabs 01/20/24 12/11/24 Rx albuterol sulfate 90 mcg/actuation 2 puff inhalation QID PRN 12/09/24 12/11/24 Rx aerosol inhaler shortness of breath or wheezing #6.7 grams amoxicillin 875 mg tablet 875 mg PO Q12H 10 days #20 tabs 12/09/24 12/11/24 Rx azithromycin 250 mg tablet See Rx Instructions PO .COMPLEX #6 12/09/24 12/11/24 Rx tabs inhalational spacing device #1 ea 12/09/24 12/11/24 Rx (Aerochamber MV spacer) prednisone 20 mg tablet 40 mg (2 x 20 mg) PO DAILY 5 days 12/09/24 12/11/24 Rx #10 tabs Allergies Allergy/AdvReac Type Severity Reaction Status Date / Time cephalexin Allergy Intermediate HIVES Verified 12/11/24 00:22 Vital Signs Vital Signs - 24 hr 12/11/24 13:05 12/11/24 13:15 12/11/24 14:00 Temperature Pulse Rate 108 H 104 H 92 Respiratory Rate 20 20 Blood Pressure Pulse Oximetry Oxygen Delivery Oxygen Flow Rate Fraction of Inspired Oxygen 12/11/24 15:49 12/11/24 15:50 12/11/24 15:54 Temperature 99.3 F Pulse Rate 95 109 H 109 H Respiratory Rate 28 H 28 H Blood Pressure 131/79 Pulse Oximetry 100 100 Oxygen Delivery Nasal Cannula Oxygen Flow Rate 4 Fraction of Inspired Oxygen 12/11/24 16:00 12/11/24 18:00 12/11/24 19:35 Temperature 97.4 F L Pulse Rate 73 82 89 Respiratory Rate 28 H Blood Pressure 121/89 Pulse Oximetry 97 Oxygen Delivery Oxygen Flow Rate Fraction of Inspired Oxygen 12/11/24 20:00 12/11/24 20:00 12/11/24 21:10 Temperature Pulse Rate 76 71 Respiratory Rate 20 Blood Pressure Pulse Oximetry 95 Oxygen Delivery Nasal Cannula Oxygen Flow Rate 4 Fraction of Inspired Oxygen 12/11/24 21:11 12/11/24 21:20 12/11/24 22:00 Temperature Pulse Rate 107 H 78 79 Respiratory Rate 20 Blood Pressure Pulse Oximetry Oxygen Delivery Oxygen Flow Rate Fraction of Inspired Oxygen 12/11/24 23:38 12/12/24 00:00 12/12/24 00:00 Temperature 97.7 F Pulse Rate 87 75 Respiratory Rate 24 H Blood Pressure 134/67 Pulse Oximetry 90 94 Oxygen Delivery Nasal Cannula Oxygen Flow Rate 4 Fraction of Inspired Oxygen 12/12/24 01:55 12/12/24 01:57 12/12/24 02:00 Temperature Pulse Rate 79 80 Respiratory Rate Blood Pressure 129/82 Pulse Oximetry 94 Oxygen Delivery Nasal Cannula Oxygen Flow Rate 4 Fraction of Inspired Oxygen 12/12/24 02:00 12/12/24 02:18 12/12/24 02:30 Temperature Pulse Rate 91 86 91 Respiratory Rate 26 H 26 H Blood Pressure Pulse Oximetry Oxygen Delivery Oxygen Flow Rate Fraction of Inspired Oxygen 12/12/24 03:59 12/12/24 04:00 12/12/24 04:00 Temperature 98.9 F Pulse Rate 81 85 Respiratory Rate 28 H Blood Pressure 140/82 Pulse Oximetry 97 99 Oxygen Delivery Non-Rebreather Mask Oxygen Flow Rate 15 Fraction of Inspired Oxygen 12/12/24 05:53 12/12/24 06:00 12/12/24 08:00 Temperature Pulse Rate 155 H 153 H Respiratory Rate Blood Pressure Pulse Oximetry 100 Oxygen Delivery Nasal Cannula Oxygen Flow Rate 3 Fraction of Inspired Oxygen 12/12/24 08:00 12/12/24 08:12 12/12/24 08:24 Temperature 98.2 F Pulse Rate 80 92 84 Respiratory Rate 20 20 Blood Pressure 156/102 H Pulse Oximetry 96 98 Oxygen Delivery Nasal Cannula Oxygen Flow Rate 5 Fraction of Inspired Oxygen 12/12/24 08:24 12/12/24 08:31 12/12/24 09:50 Temperature Pulse Rate 84 74 78 Respiratory Rate 20 20 Blood Pressure Pulse Oximetry 100 Oxygen Delivery Mechanical Ventilation Oxygen Flow Rate Fraction of Inspired Oxygen 100 12/12/24 11:05 12/12/24 11:51 Temperature Pulse Rate 85 Respiratory Rate Blood Pressure Pulse Oximetry 100 Oxygen Delivery Mechanical Ventilation Oxygen Flow Rate Fraction of Inspired Oxygen 100 75 Exam Narrative: General: Intubated and sedated, in no acute distress HEENT:? Pupils equal and reactive, sclera is clear Neck:? Supple Respiratory:? Coarse breath sounds bilaterally, rales upper lobes bilaterally, decreased air entry at bases, no wheezing Cardiac:? S1-S2 is normal, regular rate and rhythm Abdomen:? Soft, nontender, nondistended, hypoactive bowel sound Extremities:? No edema, palpable pedal pulses Neuro:? Intubated and sedated, does not answer questions or follow simple commands at this time Skin:? Warm and dry bruising noted on bilateral upper and lower extremity Psych:? Unable to assess at this time Results Labs 12/12/24 09:14 12/12/24 09:14 Labs: Short CBC 12/12/24 Range/Units 09:14 WBC 8.7 (4.5-10.0) K/mm3 Hgb 11.9 L (14.0-18.0) g/dL Hct 35.8 L (42.0-52.0) % Plt Count 309 (150-375) k/mm3 BMP 12/12/24 09:14 Sodium 146 H Potassium 3.2 L Chloride 107 Carbon Dioxide 36 H BUN 16 D Creatinine 0.67 L Glucose 121 H Calcium 8.4 Liver Function 12/12/24 Range/Units 09:14 Total Bilirubin 1.2 (0.2-1.3) mg/dL AST 49 (17-59) U/L ALT 41 (6-50) U/L Alkaline Phosphatase 71 (38-126) U/L Albumin 3.1 L (3.5-5.1) g/dL Quality VTE Prophylaxis VTE prophylaxis: pharmacologic ordered Hospitalist MIPS Advance Care Plan I have confirmed that the patient's Advanced Care Plan is present, code status is documented, or surrogate decision maker is listed in patient medical record.: Yes Medication Reconciliation I have utilized all available resources to obtain, update and review the patients current medications (includes all prescriptions, OTC, herbals, cannabis, and nutritional supplements).: Yes
[2024-12-12 13:13] LABS: Glucose Point of Care 119 mg/dl (65-105)
[2024-12-12] MEDS: VANCOMYCIN 1,750 MG/NS 500 ML 1,750 MG/500 ML BAG 250 MG IVPB (13:25)
--- NOTE | 2024-12-12 13:26 | WPDPROCEDUR ---
Procedures Intubation Intubation Date: 12/12/24 Intubation Time: 09:54 Consent: I discussed with patient's spouse Pau, updated on with patient's condition and that he was in respiratory distress and and the plan was to intubate him for airway protection given his alcohol withdrawal, worsening chest x-ray and influenza. This bowel was consented to intubation and placing him on mechanical ventilation. A pre-procedural Time-Out was completed immediately before starting the procedure and confirmed: Patient Identification, Site, Procedure, Patient Position and the Availability of Requisite Equipment: Yes Sedative: etomidate Paralytic: rocuronium Laryngoscope: fiber optic video scope Assist device used: fiber optic device ET tube size: 7.5 Tube secured depth (cm): 23 Tube secured location: lips Tube placement confirmation: visualized tube passing through cords, equal breath sounds bilaterally, no breath sounds over epigastrium and confirmation by capnometry Patient tolerated procedure: well and no complications Intubation complications: none
[2024-12-12] MEDS: PANTOPRAZOLE SODIUM IV 40 MG VIAL IV PUSH (13:29)
[2024-12-12] MEDS: DOXYCYCLINE 100 MG/NS 100 ML 100 MG/100 ML BAG IVPB ×2 (13:29→23:00)
[2024-12-12] MEDS: CENTRAL LINE FLUSH 10 ML IV PUSH ×2 (13:30→21:01)
[2024-12-12] MEDS: POTASSIUM CHLORIDE 20 MEQ PACKET (FOR LIQUID) 40 MEQ FEED TUBE (13:33)
[2024-12-12 14:46] LABS: MRSA (PCR) NOT DETECTED (NOT DETECTE)
[2024-12-12 17:58] LABS: Glucose Point of Care 120 mg/dl (65-105)
[2024-12-12] MEDS: PROPOFOL IV EMULSION 100 ML 12.42 MG IV CONT (18:36)
[2024-12-12] MEDS: MINERAL OIL/WHITE PETROLATUM OINTMENT 1 APPLIC EACH EYE (21:01)
[2024-12-12] MEDS: OSELTAMIVIR PHOSPHATE ORAL SUSP 75 MG/12.5 ML SYRINGE PO (21:01)
[2024-12-12 23:35] LABS: Glucose Point of Care 117 mg/dl (65-105)
[2024-12-12] MEDS: fentaNYL CITRATE INJ (*CRX) 100 MCG/2 ML VIAL 50 MCG IV PUSH (23:40)
[2024-12-13] VITALS (39 sets, daily range): BP systolic 105–150; BP diastolic 69–91; PULSE 67–106; RESP 17–28; TEMP 36.3–36.8; O2SAT 93–100
[2024-12-13] MEDS: VANCOMYCIN 1,500 MG/NS 500 ML 1,500 MG/500 ML BAG 250 MG IVPB ×2 (00:30→12:19)
[2024-12-13] MEDS: PROPOFOL IV EMULSION 100 ML 20.7 MG IV CONT ×5 (00:30→18:10)
[2024-12-13] MEDS: CEFEPIME 2 GM/NS 50 ML 2 GM/50 ML BAG IVPB ×3 (00:30→18:09)
[2024-12-13] MEDS: IPRATROPIUM 0.5 MG/ALBUTEROL SULFATE 2.5 MG AMPUL.NEB 3 ML INHALATION ×4 (01:39→19:47)
[2024-12-13] MEDS: fentaNYL CITRATE INJ (*CRX) 100 MCG/2 ML VIAL 50 MCG IV PUSH ×5 (03:00→18:12)
[2024-12-13 04:17] LABS: Basophils Percent Auto 0.1 % (0.2-1.2); Eosinophils Percent Auto 0.1 % (0-4.4); Hematocrit 32.4 % (42.0-52.0); Hemoglobin 10.7 g/dL (14.0-18.0); Immature Granulocyte Percent A 1.3 % (0-0.5); Lymphocytes Absolute Auto 0.54 K/mm3 (0.9-3.2); Lymphocytes Percent Auto 6.9 % (18.3-44.2); Mean Corpuscular Volume 102.9 fl (80-100); Mean Platelet Volume 9.4 fl (7.4-10.4); Monocytes Absolute Auto 0.5 K/mm3 (0.1-0.6); Monocytes Percent Auto 6.8 % (2.6-8.5); Neutrophils Absolute Auto 6.7 K/mm3 (1.3-6.7); Neutrophils Percent Auto 84.8 % (45.5-73.1); Platelet Count Result 294 k/mm3 (150-375); Red Blood Count 3.15 M/mm3 (4.6-6.20); Red Cell Distribution Width 14.1 % (11.5-14.5); White Blood Count 7.8 K/mm3 (4.5-10.0)
[2024-12-13 04:27] LABS: Lactic Acid Reflex 0.7 mmol/L (0.7-2.0)
[2024-12-13 04:29] LABS: Alanine Aminotransferase 32 U/L (6-50); Albumin Level 2.6 g/dL (3.5-5.1); Alkaline Phosphatase 65 U/L (38-126); Anion Gap 2 mmol/L (4-12); Aspartate Amino Transferase 29 U/L (17-59); Bilirubin,Total 0.8 mg/dL (0.2-1.3); Blood Urea Nitrogen 18 mg/dL (9-20); Carbon Dioxide 32 mmol/L (22-30); Chloride 113 mmol/L (98-107); Estimated CRCL calculation 92 ml/min; Estimated Glomerular Filt Rate > 60; Glucose 115 mg/dL (65-110); Magnesium 2.2 mg/dL (1.6-2.3); Phosphorus 1.9 mg/dL (2.5-4.5); Potassium 3.5 mmol/L (3.4-5.0); Sodium 147 mmol/L (137-145)
[2024-12-13 05:35] LABS: Base Excess ABG 1.2 mEq/l (+/-2.0); Carboxyhemoglobin 0.8 % THb (0-2.0); Fractional Inspired Oxygen 30 %; HCO3 ABG 24.9 mEq/l (22.0-26.0); Methemoglobin ABG 0.1 %THb (0-1.5); Oxygen Content ABG 15.3 %vol (16.0-22.0); Oxygen Saturation ABG 90.5 % (95.0-100.0); Oxyhemoglobin 89.3 % THb (90.0-100.0); PCO2 ABG 36.2 mmHg (35.0-45.0); PO2 ABG 55.4 mmHg (80.0-100.0); PO2 FiO2 Ratio Arterial Blood 1.85 %; Reduced Hemoglobin 9.8 %THb (0-5.0); Total Hemoglobin 12.2 g/dL (12.0-18.0); pH ABG 7.455 (7.350-7.450)
[2024-12-13] MEDS: CENTRAL LINE FLUSH 10 ML IV PUSH ×5 (05:54→20:08)
[2024-12-13] MEDS: MIDAZOLAM HCL (*CRX) 2 MG/2 ML VIAL IV PUSH ×2 (08:07→08:13)
[2024-12-13] MEDS: FENTANYL 2,500MCG/NS250ML(*CRX 2,500 MCG/250 ML BAG IV CONT (08:53)
[2024-12-13] MEDS: POTASSIUM PHOS/SODIUM PHOS 250 MG TABLET PO (09:02)
[2024-12-13] MEDS: POTASSIUM/PHOSPHORUS/SODIUM 1.5 GM PACKET 1 PACKET PO (09:02)
[2024-12-13] MEDS: THIAMINE HCL 200 MG/2 ML VIAL 100 MG IV PUSH (09:03)
[2024-12-13] MEDS: OSELTAMIVIR PHOSPHATE ORAL SUSP 75 MG/12.5 ML SYRINGE PO ×2 (09:03→20:08)
[2024-12-13] MEDS: PANTOPRAZOLE SODIUM IV 40 MG VIAL IV PUSH (09:04)
[2024-12-13] MEDS: ENOXAPARIN 40 MG/0.4 ML SYRINGE SUB-Q (09:04)
[2024-12-13] MEDS: FOLIC ACID 1 MG/0.2 ML INJ IV PUSH (09:04)
[2024-12-13] MEDS: MINERAL OIL/WHITE PETROLATUM OINTMENT 1 APPLIC EACH EYE ×2 (09:04→20:08)
[2024-12-13 12:03] LABS: Glucose Point of Care 90 mg/dl (65-105)
--- NOTE | 2024-12-13 12:13 | PCNFU ---
Nutrition Follow-Up Complete: Suboptimal Nutrition as related to mechanical ventilation as evidenced by NPO. goal: Meet estimated nutritional needs. Patient is progressing towards goal. We will continue current goal. Pt current nutrition is Vital AF 1.2 at 10 ml/hr. Nutrition recommendation: increase tube feedings to 50 ml/hr. Last recorded weight is 71.5 kg, up from 69 kg on admit. Bowel Motility: Last reported BM 12/10 Labs Reviewed:Glu 115, Cr 0.69, Na 147, Alb 2.6, Hct 32.4, Hgb 10.7 Meds Noted:Thiamine, Folic Acid, Tamiflu, Propofol 50 sgng=935 kcal, Protonix Skin: WNL Additional Notes: Patient remains on mechanical vent tube feedings are being tolerated of Vital AF 1.2 at 10 ml/hr, plans to advance tube feedings today to 50 ml/hr. Total Nutrition at goal rate with propofol infusion: 1866 kcal/83 gm protein/892 ml water. Flush 30 ml q 4hours. Sodium 147 today up from 146, possible adjustment in water flush. Will monitor in ICU rounds and reassess every Monday and Monday.
[2024-12-13] MEDS: DOXYCYCLINE 100 MG/NS 100 ML 100 MG/100 ML BAG IVPB ×2 (12:19→22:06)
--- NOTE | 2024-12-13 13:29 | P.PNINT_ITS ---
Progress Note: A&P Assessment and Plan (1) Acute respiratory failure: Code(s): J96.00 - Acute respiratory failure, unspecified whether with hypoxia or hypercapnia Status: Acute Assessment and Plan: 12/12: Acute respiratory failure/impending respiratory failure likely related to altered mentation secondary to alcohol withdrawal, respiratory distress due to pneumonia and influenza A, COPD/emphysema -12/12: Intubated in the ICU -currently on CMV mode of ventilation, peep of 8 and 30% FiO2, -continue bronchodilators given history of COPD -Sedated with propofol, maintain RASS of 0 to -2, daily SBT and SAT -patient received multiple doses of fentanyl overnight for from being agitated, will start fentanyl infusion (2) Multifocal pneumonia: Code(s): J18.9 - Pneumonia, unspecified organism Status: Acute Assessment and Plan: 12/10: CT chest PE protocol was negative for PE, but showed bilateral multifocal pneumonia -chest x-ray also showed bilateral multifocal pneumonia -continue cefepime doxycycline, vancomycin (12/12) 12/10: Blood cultures negative x2 12/12: Sputum cultures obtained and pending 12/12: Nasal MRSA not detected (3) COPD with emphysema: Code(s): J43.9 - Emphysema, unspecified Status: Acute Assessment and Plan: History of COPD/emphysema -currently on mechanical ventilation, continue bronchodilators (4) SVT (supraventricular tachycardia): Code(s): I47.10 - Supraventricular tachycardia, unspecified Status: Acute Assessment and Plan: Patient went into SVT on admission, appreciate cardiology evaluation and recommendation likely related to respiratory distress from pneumonia, influenza, alcohol withdrawal. -patient was started on metoprolol per tube by cardiology -currently in sinus rhythm, rate control, will hold metoprolol for now (5) Alcohol withdrawal: Code(s): F10.939 - Alcohol use, unspecified with withdrawal, unspecified Status: Acute Assessment and Plan: Patient does have a history of significant alcohol use -when patient was awake a elevated CIWA scores -received multiple doses of Ativan -when I evaluated the patient he was confused, tremulous, in withdrawal -currently intubated and sedated (6) Tobacco dependence: Code(s): F17.200 - Nicotine dependence, unspecified, uncomplicated Status: Acute Assessment and Plan: 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 I answered all questions Due to a high probability of clinically significant, life threatening deterioration, the patient required my highest level of preparedness to intervene emergently and I personally spent this critical care time directly and personally managing the patient. This critical care time included obtaining a history; examining the patient; pulse oximetry; ordering and review of studies; arranging urgent treatment with development of a management plan; evaluation of patient's response to treatment; frequent reassessment; and discussions with other providers. It was exclusive of separately billable procedures and treating other patients and teaching time. Please see Assessment and Plan section and the rest of the note for further information on patient assessment and treatment This dictation may have been done utilizing a voice recognition system. Attempts have been made to correct errors. However, there may be uncorrected grammatical, spelling, and recognitions errors present. Subjective Date/time seen: 12/13/24 13:29 Interval history: Reason for consult: Acute respiratory failure, pneumonia, influenza a, alcohol withdrawal, supraventricular tachycardia 12/13/2024: Patient seen and examined the ICU, is intubated she and sedated on CMV mode of ventilation, peep of 8, 30% FiO2. Patient is sedated with propofol infusion. Has required p.r.n. fentanyl overnight. Urine output has been adequate, afebrile. WBC count has normalized Review of Systems Review of Systems: ROS unobtainable: Yes unobtainable due to endotracheal tube, unobtainable due to medical condition and unobtainable due to mental status Exam Narrative: General: Intubated and sedated, in no acute distress HEENT:? Pupils equal and reactive, sclera is clear Neck:? Supple Respiratory:? Coarse breath sounds bilaterally, rales on upper lobes bilaterally, decreased air entry at bases, no wheezing Cardiac:? S1-S2 is normal, regular rate and rhythm Abdomen:? Soft, nontender, nondistended, hypoactive bowel sound Extremities:? No edema, palpable pedal pulses Neuro:? Intubated and sedated, does not answer questions or follow simple commands at this time Skin:? Warm and dry bruising noted on bilateral upper and lower extremity Psych:? Unable to assess at this time Objective Data Vital Signs Vital Signs: Vital Signs - 24 hr 12/12/24 13:58 12/12/24 14:00 12/12/24 14:00 Temperature Pulse Rate 97 88 88 Respiratory Rate 22 H 25 H Blood Pressure Pulse Oximetry 100 Oxygen Delivery Mechanical Ventilation Fraction of Inspired Oxygen 75 12/12/24 14:00 12/12/24 14:00 12/12/24 14:00 Temperature Pulse Rate 92 79 Respiratory Rate 24 H 19 Blood Pressure 110/71 Pulse Oximetry 100 99 Oxygen Delivery Mechanical Ventilation Fraction of Inspired Oxygen 50 50 12/12/24 14:00 12/12/24 14:13 12/12/24 14:15 Temperature Pulse Rate 94 79 81 Respiratory Rate 23 H 24 H Blood Pressure Pulse Oximetry Oxygen Delivery Fraction of Inspired Oxygen 12/12/24 14:30 12/12/24 15:00 12/12/24 16:00 Temperature Pulse Rate 79 73 74 Respiratory Rate 20 20 20 Blood Pressure Pulse Oximetry Oxygen Delivery Fraction of Inspired Oxygen 12/12/24 16:00 12/12/24 16:00 12/12/24 16:00 Temperature 97.2 F L Pulse Rate 74 74 Respiratory Rate 20 20 Blood Pressure 102/71 Pulse Oximetry 100 100 Oxygen Delivery Mechanical Ventilation Fraction of Inspired Oxygen 50 50 12/12/24 16:00 12/12/24 17:06 12/12/24 18:00 Temperature Pulse Rate 76 86 82 Respiratory Rate 23 H Blood Pressure Pulse Oximetry 100 Oxygen Delivery Mechanical Ventilation Fraction of Inspired Oxygen 75 12/12/24 18:00 12/12/24 18:00 12/12/24 18:36 Temperature Pulse Rate 81 81 91 Respiratory Rate 20 30 H Blood Pressure 143/90 H Pulse Oximetry 99 Oxygen Delivery Fraction of Inspired Oxygen 12/12/24 18:36 12/12/24 19:35 12/12/24 20:00 Temperature Pulse Rate 91 152 H 72 Respiratory Rate 30 H 21 H 20 Blood Pressure Pulse Oximetry Oxygen Delivery Fraction of Inspired Oxygen 12/12/24 20:00 12/12/24 20:00 12/12/24 20:00 Temperature Pulse Rate 72 Respiratory Rate Blood Pressure Pulse Oximetry Oxygen Delivery Mechanical Ventilation Fraction of Inspired Oxygen 50 50 12/12/24 20:01 12/12/24 20:33 12/12/24 20:33 Temperature 98.2 F Pulse Rate 70 69 69 Respiratory Rate 20 20 Blood Pressure 109/72 Pulse Oximetry 100 100 Oxygen Delivery Mechanical Ventilation Fraction of Inspired Oxygen 50 12/12/24 20:41 12/12/24 20:41 12/12/24 21:06 Temperature Pulse Rate 74 90 Respiratory Rate 21 H 23 H Blood Pressure Pulse Oximetry 98 Oxygen Delivery Mechanical Ventilation Fraction of Inspired Oxygen 40 12/12/24 22:00 12/12/24 22:00 12/12/24 22:32 Temperature Pulse Rate 74 72 145 H Respiratory Rate 20 20 Blood Pressure 117/92 H Pulse Oximetry 98 Oxygen Delivery Fraction of Inspired Oxygen 12/12/24 23:08 12/12/24 23:10 12/12/24 23:18 Temperature Pulse Rate 89 95 Respiratory Rate 32 H Blood Pressure Pulse Oximetry 99 96 Oxygen Delivery Mechanical Ventilation Mechanical Ventilation Fraction of Inspired Oxygen 40 30 12/12/24 23:22 12/12/24 23:26 12/12/24 23:26 Temperature 96.9 F L Pulse Rate Respiratory Rate Blood Pressure Pulse Oximetry Oxygen Delivery Mechanical Ventilation Fraction of Inspired Oxygen 30 30 12/12/24 23:42 12/12/24 23:44 12/13/24 00:00 Temperature Pulse Rate 95 88 79 Respiratory Rate 33 H 20 20 Blood Pressure 132/100 H Pulse Oximetry 93 Oxygen Delivery Fraction of Inspired Oxygen 12/13/24 00:00 12/13/24 00:30 12/13/24 00:30 Temperature Pulse Rate 75 71 71 Respiratory Rate 24 H 24 H Blood Pressure Pulse Oximetry Oxygen Delivery Fraction of Inspired Oxygen 12/13/24 01:39 12/13/24 01:39 12/13/24 01:50 Temperature Pulse Rate 69 69 70 Respiratory Rate 21 H 20 Blood Pressure Pulse Oximetry 97 Oxygen Delivery Mechanical Ventilation Fraction of Inspired Oxygen 30 12/13/24 02:00 12/13/24 02:00 12/13/24 02:00 Temperature Pulse Rate 73 74 74 Respiratory Rate 20 19 Blood Pressure 106/69 Pulse Oximetry 96 Oxygen Delivery Fraction of Inspired Oxygen 12/13/24 03:12 12/13/24 03:15 12/13/24 03:20 Temperature 97.7 F Pulse Rate Respiratory Rate Blood Pressure Pulse Oximetry Oxygen Delivery Mechanical Ventilation Fraction of Inspired Oxygen 30 30 12/13/24 04:00 12/13/24 04:00 12/13/24 04:00 Temperature Pulse Rate 68 68 68 Respiratory Rate 20 20 Blood Pressure 120/76 Pulse Oximetry 96 Oxygen Delivery Fraction of Inspired Oxygen 12/13/24 05:20 12/13/24 05:20 12/13/24 05:32 Temperature Pulse Rate 98 98 88 Respiratory Rate 28 H 28 H Blood Pressure Pulse Oximetry 96 Oxygen Delivery Mechanical Ventilation Fraction of Inspired Oxygen 30 12/13/24 06:00 12/13/24 06:00 12/13/24 06:00 Temperature Pulse Rate 75 75 75 Respiratory Rate 20 20 Blood Pressure 114/75 Pulse Oximetry 95 Oxygen Delivery Fraction of Inspired Oxygen 12/13/24 07:15 12/13/24 07:15 12/13/24 07:25 Temperature Pulse Rate 67 67 88 Respiratory Rate 21 H 21 H Blood Pressure Pulse Oximetry 96 Oxygen Delivery Mechanical Ventilation Fraction of Inspired Oxygen 30 12/13/24 08:00 12/13/24 08:00 12/13/24 08:00 Temperature Pulse Rate 92 92 92 Respiratory Rate 20 17 20 Blood Pressure 150/88 H Pulse Oximetry 95 95 Oxygen Delivery Mechanical Ventilation Fraction of Inspired Oxygen 30 12/13/24 08:00 12/13/24 08:00 12/13/24 08:53 Temperature Pulse Rate 97 78 Respiratory Rate 20 Blood Pressure Pulse Oximetry Oxygen Delivery Fraction of Inspired Oxygen 30 12/13/24 09:30 12/13/24 09:52 12/13/24 09:52 Temperature Pulse Rate 75 74 74 Respiratory Rate 20 20 20 Blood Pressure Pulse Oximetry Oxygen Delivery Fraction of Inspired Oxygen 12/13/24 09:54 12/13/24 10:00 12/13/24 10:00 Temperature Pulse Rate 88 72 72 Respiratory Rate 20 20 Blood Pressure 144/83 H Pulse Oximetry 97 Oxygen Delivery Fraction of Inspired Oxygen 12/13/24 10:03 12/13/24 12:00 12/13/24 12:00 Temperature Pulse Rate 72 81 Respiratory Rate 20 Blood Pressure Pulse Oximetry 97 96 Oxygen Delivery Mechanical Ventilation Mechanical Ventilation Fraction of Inspired Oxygen 30 30 30 12/13/24 12:00 12/13/24 12:00 12/13/24 12:00 Temperature 97.4 F L Pulse Rate 81 81 83 Respiratory Rate 20 20 21 H Blood Pressure 142/91 H Pulse Oximetry 96 Oxygen Delivery Fraction of Inspired Oxygen 12/13/24 12:30 12/13/24 12:45 Temperature Pulse Rate 90 101 H Respiratory Rate 23 H 26 H Blood Pressure Pulse Oximetry Oxygen Delivery Fraction of Inspired Oxygen Intake/Output Intake/Output: Intake & Output 12/10/24 12/11/24 12/12/24 12/13/24 23:59 23:59 23:59 23:59 Intake Total 1999 1801.2 2515.1 1184.8 Output Total 1200 2500 575 Balance 1999 601.2 15.1 609.8 Meds/Results Medications: Active Medications Generic Name Dose Route Start Last Admin Trade Name Freq PRN Reason Stop Dose Admin Acetaminophen 650 mg 12/11/24 07:58 Acetaminophen 325 Mg Tablet PO Q4H PRN Mild Pain (1-3) or Fever Albuterol 2 puff 12/11/24 00:26 Albuterol Sulfate (*Sp) Aerosol 1 Puff INHALATION QIDRT PRN shortness of breath or wheezing Albuterol/Ipratropium 3 ml 12/11/24 02:00 12/13/24 07:15 Ipratropium 0.5 Mg/Albuterol Sulfate 2.5 Mg Ampul.Neb 3 Ml INHALATION 3 ml Q6HRT SANTIAGO Administration Amlodipine Besylate 10 mg 12/11/24 09:00 12/12/24 08:39 Amlodipine Besylate 10 Mg Tablet PO Not Given DAILY SANTIAGO Chlordiazepoxide HCl 50 mg 12/11/24 06:00 12/11/24 05:04 Chlordiazepoxide (*Crx) 25 Mg Capsule PO 50 mg Q6HR SANTIAGO Administration Dextrose 12.5 gm 12/11/24 11:48 Dextrose 50% 25 Gm/50 Ml Syringe IV PUSH PRN PRN Hypoglycemia Protocol Enoxaparin Sodium 40 mg 12/13/24 09:00 12/13/24 09:04 Enoxaparin 40 Mg/0.4 Ml Syringe SUB-Q 40 mg DAILY SANTIAGO Administration Fentanyl Citrate 50 mcg 12/12/24 23:31 12/13/24 08:03 Fentanyl Citrate Inj (*Crx) 100 Mcg/2 Ml Vial IV PUSH 50 mcg Q2H PRN Administration AGITATION WHILE ON VENT Folic Acid 1 mg 12/11/24 09:00 12/13/24 09:04 Folic Acid 1 Mg/0.2 Ml Inj IV PUSH 1 mg QAM SANTIAGO Administration Glucagon 1 mg 12/11/24 11:48 Glucagon For Inj 1 Mg Vial IM PRN PRN Hypoglycemia Protocol Glucose 15 gm 12/11/24 11:48 Glucose Oral Gel 15 Gm Of Glucse In 37.5 Gm Tube PO PRN PRN Hypoglycemia Protocol Cefepime HCl 2 gm in 50 mls @ 100 mls/hr 12/11/24 09:00 12/13/24 09:53 Maxipime 2 Gm/Ns 50 Ml IVPB Infused Q8H SANTIAGO Infusion Dextrose 1,000 mls @ 100 mls/hr 12/11/24 11:48 Dextrose 5% 1,000 Ml IVPB PRN PRN Hypoglycemia Protocol Propofol 100 mls @ 20.7 mls/hr 12/12/24 09:55 12/13/24 12:00 Diprivan IV CONT 50 mcg/kg/min .Q4H50M SANTIAGO 20.7 mls/hr Titration Protocol 50 MCG/KG/MIN Doxycycline Hyclate 100 mg in 100 mls @ 100 mls/hr 12/12/24 11:00 12/13/24 12:19 Vibramycin 100 Mg/Ns 100 Ml IVPB 100 mls/hr Q12H SANTIAGO Administration Vancomycin HCl 1,500 mg in 500 mls @ 250 mls/hr 12/13/24 01:00 12/13/24 12:19 Vancomycin 1,500 Mg/Ns 500 Ml IVPB 250 mls/hr Q12H SANTIAGO Administration Fentanyl Citrate 2,500 mcg in 250 mls @ 15 mls/hr 12/13/24 08:15 12/13/24 12:45 Fentanyl 2,500 Mcg/Ns 250 Ml IV CONT 150 mcg/hr .[id number] SANTIAGO 15 mls/hr Titration Protocol 150 MCG/HR Levalbuterol HCl 0.63 mg 12/11/24 09:00 Levalbuterol Neb 1.25 Mg/3 Ml INHALATION Q6HRT PRN Dryness Lorazepam 2 mg 12/11/24 04:19 12/12/24 01:57 Lorazepam Inj (*Crx) 2 Mg/Ml Vial IV PUSH 2 mg Q4H PRN Administration CIWA >8 Metoprolol Tartrate 5 mg 12/12/24 01:00 12/12/24 08:41 Metoprolol Tartrate Inj 5 Mg/5 Ml Vial IV PUSH 5 mg Q4H SANTIAGO Administration Multi-Ingred Cream/Lotion/Oil/Oint 1 applic 12/12/24 21:00 12/13/24 09:04 Mineral Oil/White Petrolatum Ointment EACH EYE 1 applic Q12HR SANTIAGO Administration Ondansetron HCl 4 mg 12/11/24 04:19 Ondansetron Inj 4 Mg/2 Ml Vial IV PUSH Q6H PRN Nausea And Vomiting Oseltamivir Phosphate 75 mg 12/12/24 21:00 12/13/24 09:03 Oseltamivir Phosphate Oral Susp 75 Mg/12.5 Ml Syringe PO 12/17/24 20:59 75 mg Q12HR SANTIAGO Administration Pantoprazole Sodium 40 mg 12/13/24 09:00 12/13/24 09:04 Pantoprazole Sodium Iv 40 Mg Vial IV PUSH 40 mg QAM SANTIAGO Administration Perflutren Lipid Microsphere 0 ml 12/11/24 11:06 Perflutren Lipid Microspheres 1.5 Ml Vial Diluted To 10 Ml Total Volume IV PUSH 12/14/24 11:06 ONCE PRN adequate visualization Protocol Sodium Chloride 20 ml 12/12/24 11:00 Central Line Flush IV PUSH PRN PRN after blood draws Sodium Chloride 10 ml 12/12/24 11:00 Central Line Flush IV PUSH PRN PRN with TPN bag changes Sodium Chloride 10 ml 12/12/24 14:00 12/13/24 05:54 Central Line Flush IV PUSH 10 ml Q8HR SANTIAGO Administration Sodium Chloride 10 ml 12/13/24 14:00 Central Line Flush IV PUSH Q8HR SANTIAGO Sodium Chloride 20 ml 12/13/24 12:24 Central Line Flush IV PUSH PRN PRN after blood draws Thiamine HCl 100 mg 12/11/24 09:00 12/13/24 09:03 Thiamine Hcl 200 Mg/2 Ml Vial IV PUSH 100 mg QAM SANTIAGO Administration Radiology Results: ITS Impressions Chest CTA 12/10/24 19:15 IMPRESSION: No pulmonary embolism. No aortic dissection. Multifocal pneumonia. Abdomen X-Ray 12/12/24 10:23 IMPRESSION: 1. Nasogastric tube tip in the stomach. Chest X-Ray 12/13/24 08:40 Impression: 1: Developing patchy bilateral airspace disease, compatible with pneumonia. Labs Labs: Laboratory Results - last 24 hr 12/12/24 12/12/24 12/12/24 13:10 17:49 23:32 WBC RBC Hgb Hct MCV MCH MCHC RDW Plt Count MPV Immature Gran % (Auto) Neut % (Auto) Lymph % (Auto) [place] % (Auto) Eos % (Auto) Baso % (Auto) Lymph # (Auto) [place] # (Auto) Eos # (Auto) Baso # (Auto) Abs Immat Gran (auto) Absolute Neuts (auto) Absolute Nucleated RBC Nucleated RBC % Sodium Potassium Chloride Carbon Dioxide Anion Gap BUN Creatinine Estim Creat Clear Calc Estimated GFR Glucose POC Capillary Glucose 120 H 117 H Lactic Acid Calcium Phosphorus Magnesium Total Bilirubin AST ALT Alkaline Phosphatase Total Protein Albumin Nasal MRSA (PCR) Not detected 12/13/24 12/13/24 04:08 11:58 WBC 7.8 RBC 3.15 L Hgb 10.7 L Hct 32.4 L MCV 102.9 H MCH 34.0 MCHC 33.0 RDW 14.1 Plt Count 294 MPV 9.4 Immature Gran % (Auto) 1.3 H Neut % (Auto) 84.8 H Lymph % (Auto) 6.9 L [place] % (Auto) 6.8 Eos % (Auto) 0.1 Baso % (Auto) 0.1 L Lymph # (Auto) 0.54 L [place] # (Auto) 0.5 Eos # (Auto) 0.0 Baso # (Auto) 0.0 Abs Immat Gran (auto) 0.10 H Absolute Neuts (auto) 6.7 Absolute Nucleated RBC 0.000 Nucleated RBC % 0.0 Sodium 147 H Potassium 3.5 Chloride 113 H Carbon Dioxide 32 H Anion Gap 2 L BUN 18 Creatinine 0.69 L Estim Creat Clear Calc 92 Estimated GFR > 60 Glucose 115 H POC Capillary Glucose 90 Lactic Acid 0.7 Calcium 8.0 L Phosphorus 1.9 L Magnesium 2.2 Total Bilirubin 0.8 AST 29 ALT 32 Alkaline Phosphatase 65 Total Protein 6.0 L Albumin 2.6 L Nasal MRSA (PCR) Quality VTE Prophylaxis VTE prophylaxis: pharmacologic ordered
--- NOTE | 2024-12-13 15:06 | PM.PNCARD ---
Progress Note: A&P Assessment and Plan (1) SVT (supraventricular tachycardia): Code(s): I47.10 - Supraventricular tachycardia, unspecified Status: Acute Assessment and Plan: Likely due to influenza A, multifocal pneumonia, alcohol withdrawal. Echo with normal LVEF. Start Metoprolol 25mg BID. (2) Influenza A: Code(s): J10.1 - Influenza due to other identified influenza virus with other respiratory manifestations Status: Acute Assessment and Plan: Continue supportive care (3) Multifocal pneumonia: Code(s): J18.9 - Pneumonia, unspecified organism Status: Acute Assessment and Plan: On antibiotics (4) Alcohol withdrawal: Code(s): F10.939 - Alcohol use, unspecified with withdrawal, unspecified Status: Acute Assessment and Plan: Was withdrawing, now intubated and sedated (5) Acute respiratory failure: Code(s): J96.00 - Acute respiratory failure, unspecified whether with hypoxia or hypercapnia Status: Acute Assessment and Plan: Remains intubated Plan Recommendations and plan discussed with ICU Physician. Subjective Date/time seen: 12/13/24 15:06 Interval history: Reason for visit: SVT HPI: We are consulted for possible atrial fibrillation. History cannot be obtained from the patient due to mental status; no family at bedside. Therefore, all history obtained from the patient's chart and medical team. This is a 64 year old male with alcohol abuse who presented with coughing and shortness of breath; was recently diagnosed with pneumonia. Workup shows multifocal pneumonia, positive Influenza. In the ED, he had paroxysms of tachycardia with heart rates up into the 150s. He would self-convert out of these episodes. Thought to have converted to possible atrial fibrillation vs sinus rhythm with frequent ectopy. Was started on Diltiazem drip initially which has been subsequently discontinued. Overnight, patient started having alcohol withdrawal. No prior cardiac history documented in our system. Troponins are negative. Chest CTA with no PE, multifocal pneumonia. Multiple EKGs done since admission, and all were personally reviewed. Initial EKG shows SVT with heart rate of 166bpm. Repeat EKG appears to be sinus tachycardia. Subsequent EKGs appear to be sinus rhythm with frequent PVCs. Review of telemetry shows no atrial fibrillation. There are short bursts of tachycardia with sudden onset and sudden offset, with heart rates as high as the 190s. When the tachycardia offsets, no flutter waves are seen, goes into sinus rhythm. Date of service 12/12: Patient is still confused and in withdrawal. He does not engage in conversation Date of service 12/13: Patient intubated. Tele with occasional episodes of SVT Review of Systems Review of Systems: ROS unobtainable: Yes unobtainable due to endotracheal tube and unobtainable due to medical condition Exam HENMT: Other: OETT in place Resp: Other: On mechanical ventilation Cardio: Rate: regular rate Rhythm: regular rhythm Neuro: Other: Sedated Psych: Other: Sedated Objective Data Vital Signs Vital Signs: Vital Signs - 24 hr 12/12/24 16:00 12/12/24 16:00 12/12/24 16:00 Temperature 36.2 C L Pulse Rate 74 74 Respiratory Rate 20 20 Blood Pressure 102/71 Pulse Oximetry 100 Oxygen Delivery Fraction of Inspired Oxygen 50 12/12/24 16:00 12/12/24 16:00 12/12/24 17:06 Temperature Pulse Rate 74 76 86 Respiratory Rate 20 Blood Pressure Pulse Oximetry 100 100 Oxygen Delivery Mechanical Ventilation Mechanical Ventilation Fraction of Inspired Oxygen 50 75 12/12/24 18:00 12/12/24 18:00 12/12/24 18:00 Temperature Pulse Rate 82 81 81 Respiratory Rate 23 H 20 Blood Pressure 143/90 H Pulse Oximetry 99 Oxygen Delivery Fraction of Inspired Oxygen 12/12/24 18:36 12/12/24 18:36 12/12/24 19:35 Temperature Pulse Rate 91 91 152 H Respiratory Rate 30 H 30 H 21 H Blood Pressure Pulse Oximetry Oxygen Delivery Fraction of Inspired Oxygen 12/12/24 20:00 12/12/24 20:00 12/12/24 20:00 Temperature Pulse Rate 72 Respiratory Rate 20 Blood Pressure Pulse Oximetry Oxygen Delivery Mechanical Ventilation Fraction of Inspired Oxygen 50 50 12/12/24 20:00 12/12/24 20:01 12/12/24 20:33 Temperature 36.8 C Pulse Rate 72 70 69 Respiratory Rate 20 Blood Pressure 109/72 Pulse Oximetry 100 100 Oxygen Delivery Mechanical Ventilation Fraction of Inspired Oxygen 50 12/12/24 20:33 12/12/24 20:41 12/12/24 20:41 Temperature Pulse Rate 69 74 Respiratory Rate 20 21 H Blood Pressure Pulse Oximetry 98 Oxygen Delivery Mechanical Ventilation Fraction of Inspired Oxygen 40 12/12/24 21:06 12/12/24 22:00 12/12/24 22:00 Temperature Pulse Rate 90 74 72 Respiratory Rate 23 H 20 Blood Pressure Pulse Oximetry Oxygen Delivery Fraction of Inspired Oxygen 12/12/24 22:32 12/12/24 23:08 12/12/24 23:10 Temperature Pulse Rate 145 H 89 95 Respiratory Rate 20 32 H Blood Pressure 117/92 H Pulse Oximetry 98 99 Oxygen Delivery Mechanical Ventilation Fraction of Inspired Oxygen 40 12/12/24 23:18 12/12/24 23:22 12/12/24 23:26 Temperature Pulse Rate Respiratory Rate Blood Pressure Pulse Oximetry 96 Oxygen Delivery Mechanical Ventilation Mechanical Ventilation Fraction of Inspired Oxygen 30 30 30 12/12/24 23:26 12/12/24 23:42 12/12/24 23:44 Temperature 36.1 C L Pulse Rate 95 88 Respiratory Rate 33 H 20 Blood Pressure 132/100 H Pulse Oximetry 93 Oxygen Delivery Fraction of Inspired Oxygen 12/13/24 00:00 12/13/24 00:00 12/13/24 00:30 Temperature Pulse Rate 79 75 71 Respiratory Rate 20 24 H Blood Pressure Pulse Oximetry Oxygen Delivery Fraction of Inspired Oxygen 12/13/24 00:30 12/13/24 01:39 12/13/24 01:39 Temperature Pulse Rate 71 69 69 Respiratory Rate 24 H 21 H Blood Pressure Pulse Oximetry 97 Oxygen Delivery Mechanical Ventilation Fraction of Inspired Oxygen 30 12/13/24 01:50 12/13/24 02:00 12/13/24 02:00 Temperature Pulse Rate 70 73 74 Respiratory Rate 20 20 Blood Pressure Pulse Oximetry Oxygen Delivery Fraction of Inspired Oxygen 12/13/24 02:00 12/13/24 03:12 12/13/24 03:15 Temperature 36.5 C Pulse Rate 74 Respiratory Rate 19 Blood Pressure 106/69 Pulse Oximetry 96 Oxygen Delivery Mechanical Ventilation Fraction of Inspired Oxygen 30 12/13/24 03:20 12/13/24 04:00 12/13/24 04:00 Temperature Pulse Rate 68 68 Respiratory Rate 20 Blood Pressure 120/76 Pulse Oximetry 96 Oxygen Delivery Fraction of Inspired Oxygen 30 12/13/24 04:00 12/13/24 05:20 12/13/24 05:20 Temperature Pulse Rate 68 98 98 Respiratory Rate 20 28 H 28 H Blood Pressure Pulse Oximetry Oxygen Delivery Fraction of Inspired Oxygen 12/13/24 05:32 12/13/24 06:00 12/13/24 06:00 Temperature Pulse Rate 88 75 75 Respiratory Rate 20 20 Blood Pressure 114/75 Pulse Oximetry 96 95 Oxygen Delivery Mechanical Ventilation Fraction of Inspired Oxygen 30 12/13/24 06:00 12/13/24 07:15 12/13/24 07:15 Temperature Pulse Rate 75 67 67 Respiratory Rate 21 H Blood Pressure Pulse Oximetry 96 Oxygen Delivery Mechanical Ventilation Fraction of Inspired Oxygen 30 12/13/24 07:25 12/13/24 08:00 12/13/24 08:00 Temperature Pulse Rate 88 92 92 Respiratory Rate 21 H 20 17 Blood Pressure 150/88 H Pulse Oximetry 95 Oxygen Delivery Fraction of Inspired Oxygen 12/13/24 08:00 12/13/24 08:00 12/13/24 08:00 Temperature Pulse Rate 92 97 Respiratory Rate 20 Blood Pressure Pulse Oximetry 95 Oxygen Delivery Mechanical Ventilation Fraction of Inspired Oxygen 30 30 12/13/24 08:53 12/13/24 09:30 12/13/24 09:52 Temperature Pulse Rate 78 75 74 Respiratory Rate 20 20 20 Blood Pressure Pulse Oximetry Oxygen Delivery Fraction of Inspired Oxygen 12/13/24 09:52 12/13/24 09:54 12/13/24 10:00 Temperature Pulse Rate 74 88 72 Respiratory Rate 20 20 Blood Pressure Pulse Oximetry Oxygen Delivery Fraction of Inspired Oxygen 12/13/24 10:00 12/13/24 10:03 12/13/24 12:00 Temperature Pulse Rate 72 72 81 Respiratory Rate 20 20 Blood Pressure 144/83 H Pulse Oximetry 97 97 96 Oxygen Delivery Mechanical Ventilation Mechanical Ventilation Fraction of Inspired Oxygen 30 30 12/13/24 12:00 12/13/24 12:00 12/13/24 12:00 Temperature Pulse Rate 81 81 Respiratory Rate 20 20 Blood Pressure Pulse Oximetry Oxygen Delivery Fraction of Inspired Oxygen 30 12/13/24 12:00 12/13/24 12:00 12/13/24 12:30 Temperature 36.3 C L Pulse Rate 83 88 90 Respiratory Rate 21 H 23 H Blood Pressure 142/91 H Pulse Oximetry 96 Oxygen Delivery Fraction of Inspired Oxygen 12/13/24 12:45 12/13/24 13:15 12/13/24 13:15 Temperature Pulse Rate 101 H 75 75 Respiratory Rate 26 H 21 H Blood Pressure Pulse Oximetry 96 Oxygen Delivery Mechanical Ventilation Fraction of Inspired Oxygen 30 12/13/24 13:25 12/13/24 13:45 12/13/24 13:45 Temperature Pulse Rate 71 73 73 Respiratory Rate 20 20 20 Blood Pressure Pulse Oximetry Oxygen Delivery Fraction of Inspired Oxygen 12/13/24 14:00 12/13/24 14:00 12/13/24 14:00 Temperature Pulse Rate 76 76 76 Respiratory Rate 20 20 Blood Pressure 125/79 Pulse Oximetry 96 Oxygen Delivery Fraction of Inspired Oxygen 12/13/24 14:00 Temperature Pulse Rate 76 Respiratory Rate 20 Blood Pressure Pulse Oximetry Oxygen Delivery Fraction of Inspired Oxygen Intake/Output Intake/Output: Intake & Output 12/10/24 12/11/24 12/12/24 12/13/24 23:59 23:59 23:59 23:59 Intake Total 1999 1801.2 2515.1 1845.0 Output Total 1200 2500 575 Balance 1999 601.2 15.1 1270.0 Meds/Results Medications: Active Medications Generic Name Dose Route Start Last Admin Trade Name Freq PRN Reason Stop Dose Admin Acetaminophen 650 mg 12/11/24 07:58 Acetaminophen 325 Mg Tablet PO Q4H PRN Mild Pain (1-3) or Fever Albuterol 2 puff 12/11/24 00:26 Albuterol Sulfate (*Sp) Aerosol 1 Puff INHALATION QIDRT PRN shortness of breath or wheezing Albuterol/Ipratropium 3 ml 12/11/24 02:00 12/13/24 13:15 Ipratropium 0.5 Mg/Albuterol Sulfate 2.5 Mg Ampul.Neb 3 Ml INHALATION 3 ml Q6HRT SANTIAGO Administration Amlodipine Besylate 10 mg 12/11/24 09:00 12/12/24 08:39 Amlodipine Besylate 10 Mg Tablet PO Not Given DAILY SANTIAGO Chlordiazepoxide HCl 50 mg 12/11/24 06:00 12/11/24 05:04 Chlordiazepoxide (*Crx) 25 Mg Capsule PO 50 mg Q6HR SANTIAGO Administration Dextrose 12.5 gm 12/11/24 11:48 Dextrose 50% 25 Gm/50 Ml Syringe IV PUSH PRN PRN Hypoglycemia Protocol Enoxaparin Sodium 40 mg 12/13/24 09:00 12/13/24 09:04 Enoxaparin 40 Mg/0.4 Ml Syringe SUB-Q 40 mg DAILY SANTIAGO Administration Fentanyl Citrate 50 mcg 12/12/24 23:31 12/13/24 08:03 Fentanyl Citrate Inj (*Crx) 100 Mcg/2 Ml Vial IV PUSH 50 mcg Q2H PRN Administration AGITATION WHILE ON VENT Folic Acid 1 mg 12/11/24 09:00 12/13/24 09:04 Folic Acid 1 Mg/0.2 Ml Inj IV PUSH 1 mg QAM SANTIAGO Administration Glucagon 1 mg 12/11/24 11:48 Glucagon For Inj 1 Mg Vial IM PRN PRN Hypoglycemia Protocol Glucose 15 gm 12/11/24 11:48 Glucose Oral Gel 15 Gm Of Glucse In 37.5 Gm Tube PO PRN PRN Hypoglycemia Protocol Cefepime HCl 2 gm in 50 mls @ 100 mls/hr 12/11/24 09:00 12/13/24 09:53 Maxipime 2 Gm/Ns 50 Ml IVPB Infused Q8H SANTIAGO Infusion Dextrose 1,000 mls @ 100 mls/hr 12/11/24 11:48 Dextrose 5% 1,000 Ml IVPB PRN PRN Hypoglycemia Protocol Propofol 100 mls @ 20.7 mls/hr 12/12/24 09:55 12/13/24 14:00 Diprivan IV CONT 50 mcg/kg/min .Q4H50M SANTIAGO 20.7 mls/hr Titration Protocol 50 MCG/KG/MIN Doxycycline Hyclate 100 mg in 100 mls @ 100 mls/hr 12/12/24 11:00 12/13/24 14:55 Vibramycin 100 Mg/Ns 100 Ml IVPB Infused Q12H SANTIAGO Infusion Vancomycin HCl 1,500 mg in 500 mls @ 250 mls/hr 12/13/24 01:00 12/13/24 14:55 Vancomycin 1,500 Mg/Ns 500 Ml IVPB Infused Q12H SANTIAGO Infusion Fentanyl Citrate 2,500 mcg in 250 mls @ 15 mls/hr 12/13/24 08:15 12/13/24 14:00 Fentanyl 2,500 Mcg/Ns 250 Ml IV CONT 150 mcg/hr .[id number] SANTIAGO 15 mls/hr Titration Protocol 150 MCG/HR Levalbuterol HCl 0.63 mg 12/11/24 09:00 Levalbuterol Neb 1.25 Mg/3 Ml INHALATION Q6HRT PRN Dryness Lorazepam 2 mg 12/11/24 04:19 12/12/24 01:57 Lorazepam Inj (*Crx) 2 Mg/Ml Vial IV PUSH 2 mg Q4H PRN Administration CIWA >8 Metoprolol Tartrate 5 mg 12/12/24 01:00 12/12/24 08:41 Metoprolol Tartrate Inj 5 Mg/5 Ml Vial IV PUSH 5 mg Q4H SANTIAGO Administration Metoprolol Tartrate 25 mg 12/13/24 21:00 Metoprolol Tartrate 25 Mg Tablet PO Q12HR SANTIAGO Multi-Ingred Cream/Lotion/Oil/Oint 1 applic 12/12/24 21:00 12/13/24 09:04 Mineral Oil/White Petrolatum Ointment EACH EYE 1 applic Q12HR SANTIAGO Administration Ondansetron HCl 4 mg 12/11/24 04:19 Ondansetron Inj 4 Mg/2 Ml Vial IV PUSH Q6H PRN Nausea And Vomiting Oseltamivir Phosphate 75 mg 12/12/24 21:00 12/13/24 09:03 Oseltamivir Phosphate Oral Susp 75 Mg/12.5 Ml Syringe PO 12/17/24 20:59 75 mg Q12HR SANTIAGO Administration Pantoprazole Sodium 40 mg 12/13/24 09:00 12/13/24 09:04 Pantoprazole Sodium Iv 40 Mg Vial IV PUSH 40 mg QAM SANTIAGO Administration Perflutren Lipid Microsphere 0 ml 12/11/24 11:06 Perflutren Lipid Microspheres 1.5 Ml Vial Diluted To 10 Ml Total Volume IV PUSH 12/14/24 11:06 ONCE PRN adequate visualization Protocol Sodium Chloride 20 ml 12/12/24 11:00 Central Line Flush IV PUSH PRN PRN after blood draws Sodium Chloride 10 ml 12/12/24 11:00 Central Line Flush IV PUSH PRN PRN with TPN bag changes Sodium Chloride 10 ml 12/12/24 14:00 12/13/24 14:20 Central Line Flush IV PUSH 10 ml Q8HR SANTIAGO Administration Sodium Chloride 10 ml 12/13/24 14:00 12/13/24 14:20 Central Line Flush IV PUSH 10 ml Q8HR SANTIAGO Administration Sodium Chloride 20 ml 12/13/24 12:24 Central Line Flush IV PUSH PRN PRN after blood draws Thiamine HCl 100 mg 12/11/24 09:00 12/13/24 09:03 Thiamine Hcl 200 Mg/2 Ml Vial IV PUSH 100 mg QAM SANTIAGO Administration Radiology Results: ITS Impressions Chest CTA 12/10/24 19:15 IMPRESSION: No pulmonary embolism. No aortic dissection. Multifocal pneumonia. Abdomen X-Ray 12/12/24 10:23 IMPRESSION: 1. Nasogastric tube tip in the stomach. Chest X-Ray 12/13/24 08:40 Impression: 1: Developing patchy bilateral airspace disease, compatible with pneumonia. Labs Labs: Laboratory Results - last 24 hr 12/12/24 12/12/24 12/13/24 17:49 23:32 04:08 WBC 7.8 RBC 3.15 L Hgb 10.7 L Hct 32.4 L MCV 102.9 H MCH 34.0 MCHC 33.0 RDW 14.1 Plt Count 294 MPV 9.4 Immature Gran % (Auto) 1.3 H Neut % (Auto) 84.8 H Lymph % (Auto) 6.9 L Cassia % (Auto) 6.8 Eos % (Auto) 0.1 Baso % (Auto) 0.1 L Lymph # (Auto) 0.54 L Cassia # (Auto) 0.5 Eos # (Auto) 0.0 Baso # (Auto) 0.0 Abs Immat Gran (auto) 0.10 H Absolute Neuts (auto) 6.7 Absolute Nucleated RBC 0.000 Nucleated RBC % 0.0 Sodium 147 H Potassium 3.5 Chloride 113 H Carbon Dioxide 32 H Anion Gap 2 L BUN 18 Creatinine 0.69 L Estim Creat Clear Calc 92 Estimated GFR > 60 Glucose 115 H POC Capillary Glucose 120 H 117 H Lactic Acid 0.7 Calcium 8.0 L Phosphorus 1.9 L Magnesium 2.2 Total Bilirubin 0.8 AST 29 ALT 32 Alkaline Phosphatase 65 Total Protein 6.0 L Albumin 2.6 L 12/13/24 11:58 WBC RBC Hgb Hct MCV MCH MCHC RDW Plt Count MPV Immature Gran % (Auto) Neut % (Auto) Lymph % (Auto) Cassia % (Auto) Eos % (Auto) Baso % (Auto) Lymph # (Auto) Cassia # (Auto) Eos # (Auto) Baso # (Auto) Abs Immat Gran (auto) Absolute Neuts (auto) Absolute Nucleated RBC Nucleated RBC % Sodium Potassium Chloride Carbon Dioxide Anion Gap BUN Creatinine Estim Creat Clear Calc Estimated GFR Glucose POC Capillary Glucose 90 Lactic Acid Calcium Phosphorus Magnesium Total Bilirubin AST ALT Alkaline Phosphatase Total Protein Albumin
--- NOTE | 2024-12-13 17:43 | P.PNIM_ITS ---
Progress Note: A&P Assessment and Plan (1) Alcohol withdrawal: Code(s): F10.939 - Alcohol use, unspecified with withdrawal, unspecified Status: Acute (2) SVT (supraventricular tachycardia): Code(s): I47.10 - Supraventricular tachycardia, unspecified Status: Acute (3) Electrolyte abnormality: Code(s): E87.8 - Other disorders of electrolyte and fluid balance, not elsewhere classified Status: Acute (4) Influenza A: Code(s): J10.1 - Influenza due to other identified influenza virus with other respiratory manifestations Status: Acute (5) Multifocal pneumonia: Code(s): J18.9 - Pneumonia, unspecified organism Status: Acute (6) COPD with emphysema: Code(s): J43.9 - Emphysema, unspecified Status: Acute (7) Tobacco dependence: Code(s): F17.200 - Nicotine dependence, unspecified, uncomplicated Status: Acute (8) Acute respiratory failure: Code(s): J96.00 - Acute respiratory failure, unspecified whether with hypoxia or hypercapnia Status: Acute Plan (1) Acute respiratory failure: Code(s): J96.00 - Acute respiratory failure, unspecified whether with hypoxia or hypercapnia Status: Acute Assessment and Plan: 12/12: Acute respiratory failure/impending respiratory failure likely related to altered mentation secondary to alcohol withdrawal, respiratory distress due to pneumonia and influenza A, COPD/emphysema -12/12: Intubated in the ICU -currently on CMV mode of ventilation, peep of 8 and 30% FiO2, -continue bronchodilators given history of COPD -Sedated with propofol, maintain RASS of 0 to -2, daily SBT and SAT -patient received multiple doses of fentanyl overnight for from being agitated, will start fentanyl infusion (2) Multifocal pneumonia: Code(s): J18.9 - Pneumonia, unspecified organism Status: Acute Assessment and Plan: 12/10: CT chest PE protocol was negative for PE, but showed bilateral multifocal pneumonia -chest x-ray also showed bilateral multifocal pneumonia -continue cefepime doxycycline, vancomycin (12/12) 12/10: Blood cultures negative x2 12/12: Sputum cultures obtained and pending 12/12: Nasal MRSA not detected (3) COPD with emphysema: Code(s): J43.9 - Emphysema, unspecified Status: Acute Assessment and Plan: History of COPD/emphysema -currently on mechanical ventilation, continue bronchodilators (4) SVT (supraventricular tachycardia): Code(s): I47.10 - Supraventricular tachycardia, unspecified Status: Acute Assessment and Plan: Patient went into SVT on admission, appreciate cardiology evaluation and recommendation likely related to respiratory distress from pneumonia, influenza, alcohol withdrawal. -patient was started on metoprolol per tube by cardiology -currently in sinus rhythm, rate control, will hold metoprolol for now (5) Alcohol withdrawal: Code(s): F10.939 - Alcohol use, unspecified with withdrawal, unspecified Status: Acute Assessment and Plan: Patient does have a history of significant alcohol use -when patient was awake a elevated CIWA scores -received multiple doses of Ativan -when I evaluated the patient he was confused, tremulous, in withdrawal -currently intubated and sedated (6) Tobacco dependence: Code(s): F17.200 - Nicotine dependence, unspecified, uncomplicated Status: Acute Assessment and Plan: Will adolescent counselor patient on cessation of tobacco use once he is off the ventilator (7) Electrolyte abnormality: Code(s): E87.8 - Other disorders of electrolyte and fluid balance, not elsewhere classified Status: Acute Assessment and Plan: Replace phosphorus Subjective Date/time seen: 12/13/24 17:43 Interval history: Patient is intubated she and sedated on on mechanical ventilation, patient has no obvious distress. Patient is sedated with propofol infusion and fentanyl IV p.r.n. Urine output has been adequate, afebrile, blood pressure stable, labs reviewed Exam Narrative: GENERAL: Ill-appearing, intubated, in no acute distress. Man nutrition, - EYES: EOMI. Anicteric. - HENT: Moist mucous membranes. - LUNGS: Coarse breath sound bilaterall y no wheezing, rhonchi, or rales. - CARDIOVASCULAR: Regular rate and rhyth m. No murmur. No JVD. - ABDOMEN: Soft, non-tender and non-dist ended. No palpable masses. - EXTREMITIES: No edema. Peripheral puls es 2+. Non-tender. - NEUROLOGIC: No focal neurological defi cits. CN II-XII grossly intact. - PSYCHIATRIC: On sedation, not oriente d x 3. No obvious distress - SKIN: No rashes or lesions. Warm. - LYMPH: No cervical lymphadenopathy. Objective Data Vital Signs Vital Signs: Vital Signs - 24 hr 12/12/24 18:00 12/12/24 18:00 12/12/24 18:00 Temperature Pulse Rate 82 81 81 Respiratory Rate 23 H 20 Blood Pressure 143/90 H Pulse Oximetry 99 Oxygen Delivery Fraction of Inspired Oxygen 12/12/24 18:36 12/12/24 18:36 12/12/24 19:35 Temperature Pulse Rate 91 91 152 H Respiratory Rate 30 H 30 H 21 H Blood Pressure Pulse Oximetry Oxygen Delivery Fraction of Inspired Oxygen 12/12/24 20:00 12/12/24 20:00 12/12/24 20:00 Temperature Pulse Rate 72 Respiratory Rate 20 Blood Pressure Pulse Oximetry Oxygen Delivery Mechanical Ventilation Fraction of Inspired Oxygen 50 50 12/12/24 20:00 12/12/24 20:01 12/12/24 20:33 Temperature 98.2 F Pulse Rate 72 70 69 Respiratory Rate 20 Blood Pressure 109/72 Pulse Oximetry 100 100 Oxygen Delivery Mechanical Ventilation Fraction of Inspired Oxygen 50 12/12/24 20:33 12/12/24 20:41 12/12/24 20:41 Temperature Pulse Rate 69 74 Respiratory Rate 20 21 H Blood Pressure Pulse Oximetry 98 Oxygen Delivery Mechanical Ventilation Fraction of Inspired Oxygen 40 12/12/24 21:06 12/12/24 22:00 12/12/24 22:00 Temperature Pulse Rate 90 74 72 Respiratory Rate 23 H 20 Blood Pressure Pulse Oximetry Oxygen Delivery Fraction of Inspired Oxygen 12/12/24 22:32 12/12/24 23:08 12/12/24 23:10 Temperature Pulse Rate 145 H 89 95 Respiratory Rate 20 32 H Blood Pressure 117/92 H Pulse Oximetry 98 99 Oxygen Delivery Mechanical Ventilation Fraction of Inspired Oxygen 40 12/12/24 23:18 12/12/24 23:22 12/12/24 23:26 Temperature Pulse Rate Respiratory Rate Blood Pressure Pulse Oximetry 96 Oxygen Delivery Mechanical Ventilation Mechanical Ventilation Fraction of Inspired Oxygen 30 30 30 12/12/24 23:26 12/12/24 23:42 12/12/24 23:44 Temperature 96.9 F L Pulse Rate 95 88 Respiratory Rate 33 H 20 Blood Pressure 132/100 H Pulse Oximetry 93 Oxygen Delivery Fraction of Inspired Oxygen 12/13/24 00:00 12/13/24 00:00 12/13/24 00:30 Temperature Pulse Rate 79 75 71 Respiratory Rate 20 24 H Blood Pressure Pulse Oximetry Oxygen Delivery Fraction of Inspired Oxygen 12/13/24 00:30 12/13/24 01:39 12/13/24 01:39 Temperature Pulse Rate 71 69 69 Respiratory Rate 24 H 21 H Blood Pressure Pulse Oximetry 97 Oxygen Delivery Mechanical Ventilation Fraction of Inspired Oxygen 30 12/13/24 01:50 12/13/24 02:00 12/13/24 02:00 Temperature Pulse Rate 70 73 74 Respiratory Rate 20 20 Blood Pressure Pulse Oximetry Oxygen Delivery Fraction of Inspired Oxygen 12/13/24 02:00 12/13/24 03:12 12/13/24 03:15 Temperature 97.7 F Pulse Rate 74 Respiratory Rate 19 Blood Pressure 106/69 Pulse Oximetry 96 Oxygen Delivery Mechanical Ventilation Fraction of Inspired Oxygen 30 12/13/24 03:20 12/13/24 04:00 12/13/24 04:00 Temperature Pulse Rate 68 68 Respiratory Rate 20 Blood Pressure 120/76 Pulse Oximetry 96 Oxygen Delivery Fraction of Inspired Oxygen 30 12/13/24 04:00 12/13/24 05:20 12/13/24 05:20 Temperature Pulse Rate 68 98 98 Respiratory Rate 20 28 H 28 H Blood Pressure Pulse Oximetry Oxygen Delivery Fraction of Inspired Oxygen 12/13/24 05:32 12/13/24 06:00 12/13/24 06:00 Temperature Pulse Rate 88 75 75 Respiratory Rate 20 20 Blood Pressure 114/75 Pulse Oximetry 96 95 Oxygen Delivery Mechanical Ventilation Fraction of Inspired Oxygen 30 12/13/24 06:00 12/13/24 07:15 12/13/24 07:15 Temperature Pulse Rate 75 67 67 Respiratory Rate 21 H Blood Pressure Pulse Oximetry 96 Oxygen Delivery Mechanical Ventilation Fraction of Inspired Oxygen 30 12/13/24 07:25 12/13/24 08:00 12/13/24 08:00 Temperature Pulse Rate 88 92 92 Respiratory Rate 21 H 20 17 Blood Pressure 150/88 H Pulse Oximetry 95 Oxygen Delivery Fraction of Inspired Oxygen 12/13/24 08:00 12/13/24 08:00 12/13/24 08:00 Temperature Pulse Rate 92 97 Respiratory Rate 20 Blood Pressure Pulse Oximetry 95 Oxygen Delivery Mechanical Ventilation Fraction of Inspired Oxygen 30 30 12/13/24 08:53 12/13/24 09:30 12/13/24 09:52 Temperature Pulse Rate 78 75 74 Respiratory Rate 20 20 20 Blood Pressure Pulse Oximetry Oxygen Delivery Fraction of Inspired Oxygen 01/17/25 09:52 12/13/24 09:54 12/13/24 10:00 Temperature Pulse Rate 74 88 72 Respiratory Rate 20 20 Blood Pressure Pulse Oximetry Oxygen Delivery Fraction of Inspired Oxygen 12/13/24 10:00 12/13/24 10:03 12/13/24 12:00 Temperature Pulse Rate 72 72 81 Respiratory Rate 20 20 Blood Pressure 144/83 H Pulse Oximetry 97 97 96 Oxygen Delivery Mechanical Ventilation Mechanical Ventilation Fraction of Inspired Oxygen 30 30 12/13/24 12:00 12/13/24 12:00 12/13/24 12:00 Temperature Pulse Rate 81 81 Respiratory Rate 20 20 Blood Pressure Pulse Oximetry Oxygen Delivery Fraction of Inspired Oxygen 30 12/13/24 12:00 12/13/24 12:00 12/13/24 12:30 Temperature 97.4 F L Pulse Rate 83 88 90 Respiratory Rate 21 H 23 H Blood Pressure 142/91 H Pulse Oximetry 96 Oxygen Delivery Fraction of Inspired Oxygen 12/13/24 12:45 12/13/24 13:15 12/13/24 13:15 Temperature Pulse Rate 101 H 75 75 Respiratory Rate 26 H 21 H Blood Pressure Pulse Oximetry 96 Oxygen Delivery Mechanical Ventilation Fraction of Inspired Oxygen 30 12/13/24 13:25 12/13/24 13:45 12/13/24 13:45 Temperature Pulse Rate 71 73 73 Respiratory Rate 20 20 20 Blood Pressure Pulse Oximetry Oxygen Delivery Fraction of Inspired Oxygen 12/13/24 14:00 12/13/24 14:00 12/13/24 14:00 Temperature Pulse Rate 76 76 76 Respiratory Rate 20 20 Blood Pressure 125/79 Pulse Oximetry 96 Oxygen Delivery Fraction of Inspired Oxygen 12/13/24 14:00 12/13/24 16:00 12/13/24 16:00 Temperature Pulse Rate 76 71 70 Respiratory Rate 20 20 Blood Pressure 127/84 Pulse Oximetry 97 Oxygen Delivery Fraction of Inspired Oxygen 12/13/24 16:00 12/13/24 16:05 Temperature Pulse Rate 70 Respiratory Rate Blood Pressure Pulse Oximetry 96 Oxygen Delivery Mechanical Ventilation Fraction of Inspired Oxygen 30 30 Intake/Output Intake/Output: Intake & Output 12/10/24 12/11/24 12/12/24 12/13/24 23:59 23:59 23:59 23:59 Intake Total 1999 1801.2 2515.1 1845.0 Output Total 1200 2500 575 Balance 1999 601.2 15.1 1270.0 Meds/Results Medications: Active Medications Generic Name Dose Route Start Last Admin Trade Name Freq PRN Reason Stop Dose Admin Acetaminophen 650 mg 12/11/24 07:58 Acetaminophen 325 Mg Tablet PO Q4H PRN Mild Pain (1-3) or Fever Albuterol 2 puff 12/11/24 00:26 Albuterol Sulfate (*Sp) Aerosol 1 Puff INHALATION QIDRT PRN shortness of breath or wheezing Albuterol/Ipratropium 3 ml 12/11/24 02:00 12/13/24 13:15 Ipratropium 0.5 Mg/Albuterol Sulfate 2.5 Mg Ampul.Neb 3 Ml INHALATION 3 ml Q6HRT SANTIAGO Administration Amlodipine Besylate 10 mg 12/11/24 09:00 12/12/24 08:39 Amlodipine Besylate 10 Mg Tablet PO Not Given DAILY SANTIAGO Chlordiazepoxide HCl 50 mg 12/11/24 06:00 12/11/24 05:04 Chlordiazepoxide (*Crx) 25 Mg Capsule PO 50 mg Q6HR SANTIAGO Administration Dextrose 12.5 gm 12/11/24 11:48 Dextrose 50% 25 Gm/50 Ml Syringe IV PUSH PRN PRN Hypoglycemia Protocol Enoxaparin Sodium 40 mg 12/13/24 09:00 12/13/24 09:04 Enoxaparin 40 Mg/0.4 Ml Syringe SUB-Q 40 mg DAILY SANTIAGO Administration Fentanyl Citrate 50 mcg 12/12/24 23:31 12/13/24 08:03 Fentanyl Citrate Inj (*Crx) 100 Mcg/2 Ml Vial IV PUSH 50 mcg Q2H PRN Administration AGITATION WHILE ON VENT Folic Acid 1 mg 12/11/24 09:00 12/13/24 09:04 Folic Acid 1 Mg/0.2 Ml Inj IV PUSH 1 mg QAM SANTIAGO Administration Glucagon 1 mg 12/11/24 11:48 Glucagon For Inj 1 Mg Vial IM PRN PRN Hypoglycemia Protocol Glucose 15 gm 12/11/24 11:48 Glucose Oral Gel 15 Gm Of Glucse In 37.5 Gm Tube PO PRN PRN Hypoglycemia Protocol Cefepime HCl 2 gm in 50 mls @ 100 mls/hr 12/11/24 09:00 12/13/24 09:53 Maxipime 2 Gm/Ns 50 Ml IVPB Infused Q8H S[facility]IAGO Infusion Dextrose 1,000 mls @ 100 mls/hr 12/11/24 11:48 Dextrose 5% 1,000 Ml IVPB PRN PRN Hypoglycemia Protocol Propofol 100 mls @ 20.7 mls/hr 12/12/24 09:55 12/13/24 14:00 Diprivan IV CONT 50 mcg/kg/min .Q4H50M S[facility]IAGO 20.7 mls/hr Titration Protocol 50 MCG/KG/MIN Doxycycline Hyclate 100 mg in 100 mls @ 100 mls/hr 12/12/24 11:00 12/13/24 14:55 Vibramycin 100 Mg/Ns 100 Ml IVPB Infused Q12H S[facility]O Infusion Vancomycin HCl 1,500 mg in 500 mls @ 250 mls/hr 12/13/24 01:00 12/13/24 14:55 Vancomycin 1,500 Mg/Ns 500 Ml IVPB Infused Q12H [facility]O Infusion Fentanyl Citrate 2,500 mcg in 250 mls @ 15 mls/hr 12/13/24 08:15 12/13/24 14:00 Fentanyl 2,500 Mcg/Ns 250 Ml IV CONT 150 mcg/hr .[id number] S[facility]IAGO 15 mls/hr Titration Protocol 150 MCG/HR Levalbuterol HCl 0.63 mg 12/11/24 09:00 Levalbuterol Neb 1.25 Mg/3 Ml INHALATION Q6HRT PRN Dryness Lorazepam 2 mg 12/11/24 04:19 12/12/24 01:57 Lorazepam Inj (*Crx) 2 Mg/Ml Vial IV PUSH 2 mg Q4H PRN Administration CIWA >8 Metoprolol Tartrate 5 mg 12/12/24 01:00 12/12/24 08:41 Metoprolol Tartrate Inj 5 Mg/5 Ml Vial IV PUSH 5 mg Q4H S[facility]AGO Administration Metoprolol Tartrate 25 mg 12/13/24 21:00 Metoprolol Tartrate 25 Mg Tablet PO Q12HR [facility] Multi-Ingred Cream/Lotion/Oil/Oint 1 applic 12/12/24 21:00 12/13/24 09:04 Mineral Oil/White Petrolatum Ointment EACH EYE 1 applic Q12HR [facility] Administration Ondansetron HCl 4 mg 12/11/24 04:19 Ondansetron Inj 4 Mg/2 Ml Vial IV PUSH Q6H PRN Nausea And Vomiting Oseltamivir Phosphate 75 mg 12/12/24 21:00 12/13/24 09:03 Oseltamivir Phosphate Oral Susp 75 Mg/12.5 Ml Syringe PO 12/17/24 20:59 75 mg Q12HR [facility]AGO Administration Pantoprazole Sodium 40 mg 12/13/24 09:00 12/13/24 09:04 Pantoprazole Sodium Iv 40 Mg Vial IV PUSH 40 mg QAM S[facility]IAGO Administration Perflutren Lipid Microsphere 0 ml 12/11/24 11:06 Perflutren Lipid Microspheres 1.5 Ml Vial Diluted To 10 Ml Total Volume IV PUSH 12/14/24 11:06 ONCE PRN adequate visualization Protocol Sodium Chloride 20 ml 12/12/24 11:00 Central Line Flush IV PUSH PRN PRN after blood draws Sodium Chloride 10 ml 12/12/24 11:00 Central Line Flush IV PUSH PRN PRN with TPN bag changes Sodium Chloride 10 ml 12/12/24 14:00 12/13/24 14:20 Central Line Flush IV PUSH 10 ml Q8HR [facility] Administration Sodium Chloride 10 ml 12/13/24 14:00 12/13/24 14:20 Central Line Flush IV PUSH 10 ml Q8HR [facility] Administration Sodium Chloride 20 ml 12/13/24 12:24 Central Line Flush IV PUSH PRN PRN after blood draws Thiamine HCl 100 mg 12/11/24 09:00 12/13/24 09:03 Thiamine Hcl 200 Mg/2 Ml Vial IV PUSH 100 mg QAM S[facility]IAGO Administration Radiology Results: ITS Impressions Chest CTA 12/10/24 19:15 IMPRESSION: No pulmonary embolism. No aortic dissection. Multifocal pneumonia. Abdomen X-Ray 12/12/24 10:23 IMPRESSION: 1. Nasogastric tube tip in the stomach. Chest X-Ray 12/13/24 08:40 Impression: 1: Developing patchy bilateral airspace disease, compatible with pneumonia. Labs Labs: Laboratory Results - last 24 hr 12/12/24 12/12/24 12/13/24 17:49 23:32 04:08 WBC 7.8 RBC 3.15 L Hgb 10.7 L Hct 32.4 L MCV 102.9 H MCH 34.0 MCHC 33.0 RDW 14.1 Plt Count 294 MPV 9.4 Immature Gran % (Auto) 1.3 H Neut % (Auto) 84.8 H Lymph % (Auto) 6.9 L [place] % (Auto) 6.8 Eos % (Auto) 0.1 Baso % (Auto) 0.1 L Lymph # (Auto) 0.54 L [place] # (Auto) 0.5 Eos # (Auto) 0.0 Baso # (Auto) 0.0 Abs Immat Gran (auto) 0.10 H Absolute Neuts (auto) 6.7 Absolute Nucleated RBC 0.000 Nucleated RBC % 0.0 Sodium 147 H Potassium 3.5 Chloride 113 H Carbon Dioxide 32 H Anion Gap 2 L BUN 18 Creatinine 0.69 L Estim Creat Clear Calc 92 Estimated GFR > 60 Glucose 115 H POC Capillary Glucose 120 H 117 H Lactic Acid 0.7 Calcium 8.0 L Phosphorus 1.9 L Magnesium 2.2 Total Bilirubin 0.8 AST 29 ALT 32 Alkaline Phosphatase 65 Total Protein 6.0 L Albumin 2.6 L 12/13/24 11:58 WBC RBC Hgb Hct MCV MCH MCHC RDW Plt Count MPV Immature Gran % (Auto) Neut % (Auto) Lymph % (Auto) [place] % (Auto) Eos % (Auto) Baso % (Auto) Lymph # (Auto) [place] # (Auto) Eos # (Auto) Baso # (Auto) Abs Immat Gran (auto) Absolute Neuts (auto) Absolute Nucleated RBC Nucleated RBC % Sodium Potassium Chloride Carbon Dioxide Anion Gap BUN Creatinine Estim Creat Clear Calc Estimated GFR Glucose POC Capillary Glucose 90 Lactic Acid Calcium Phosphorus Magnesium Total Bilirubin AST ALT Alkaline Phosphatase Total Protein Albumin
[2024-12-13 18:25] LABS: Glucose Point of Care 84 mg/dl (65-105)
[2024-12-13] MEDS: METOPROLOL TARTRATE 25 MG TABLET PO (20:07)
[2024-12-13] MEDS: PROPOFOL IV EMULSION 100 ML 21.45 MG IV CONT (22:58)
[2024-12-14] VITALS (34 sets, daily range): BP systolic 91–120; BP diastolic 59–78; PULSE 68–101; RESP 15–24; TEMP 36.7–37.8; O2SAT 93–100
[2024-12-14] MEDS: CEFEPIME 2 GM/NS 50 ML 2 GM/50 ML BAG IVPB ×3 (00:12→16:44)
[2024-12-14 00:29] LABS: Glucose Point of Care 94 mg/dl (65-105)
[2024-12-14 00:38] LABS: Vancomycin Trough 15.6 ug/mL (10.0-20.0)
[2024-12-14] MEDS: FENTANYL 2,500MCG/NS250ML(*CRX 2,500 MCG/250 ML BAG 20 MCG IV CONT ×2 (01:00→13:33)
[2024-12-14] MEDS: VANCOMYCIN 1,500 MG/NS 500 ML 1,500 MG/500 ML BAG 250 MG IVPB ×2 (01:00→13:26)
[2024-12-14] MEDS: IPRATROPIUM 0.5 MG/ALBUTEROL SULFATE 2.5 MG AMPUL.NEB 3 ML INHALATION ×4 (02:03→21:55)
[2024-12-14] MEDS: PROPOFOL IV EMULSION 100 ML 21.45 MG IV CONT ×5 (03:38→21:47)
[2024-12-14 05:39] LABS: Alveolar/Arterial O2 Gradient 86.6 mmHg; Base Excess ABG 0.8 mEq/l (+/-2.0); Carboxyhemoglobin 0.6 % THb (0-2.0); Fractional Inspired Oxygen 30 %; Methemoglobin ABG 0.2 %THb (0-1.5); Oxygen Content ABG 15.7 %vol (16.0-22.0); Oxygen Saturation ABG 95.1 % (95.0-100.0); Oxyhemoglobin 94.1 % THb (90.0-100.0); PCO2 ABG 43.8 mmHg (35.0-45.0); PO2 ABG 75.8 mmHg (80.0-100.0); PO2 FiO2 Ratio Arterial Blood 2.53 %; Reduced Hemoglobin 5.1 %THb (0-5.0); Total Hemoglobin 11.8 g/dL (12.0-18.0); pH ABG 7.391 (7.350-7.450)
[2024-12-14 05:40] LABS: Device VENTILATOR; Modified Allen's Test Pass; Site Drawn RIGHT RADIAL
[2024-12-14 06:13] LABS: Arterial Blood Gas PEEP 8 cmH2O; Arterial Blood Gas Tidal Volume 480 ml; Arterial Blood Gas Vent Mode CMV; Arterial Blood Gas Ventilator rate 20 /MIN
[2024-12-14] MEDS: CENTRAL LINE FLUSH 10 ML IV PUSH ×6 (06:19→22:40)
[2024-12-14 06:21] LABS: Basophils Percent Auto 0.1 % (0.2-1.2); Eosinophils Absolute Auto 0.1 K/mm3 (0-0.3); Eosinophils Percent Auto 0.9 % (0-4.4); Hematocrit 33.5 % (42.0-52.0); Hemoglobin 10.9 g/dL (14.0-18.0); Immature Granulocyte Absolute 0.13 K/mm3 (0.00-0.031); Immature Granulocyte Percent A 1.3 % (0-0.5); Mean Corpuscular HGB Conc 32.5 g/dl (32-36); Mean Corpuscular Hemoglobin 33.2 pg (26-34); Mean Corpuscular Volume 102.1 fl (80-100); Mean Platelet Volume 9.7 fl (7.4-10.4); Monocytes Absolute Auto 0.8 K/mm3 (0.1-0.6); Neutrophils Absolute Auto 8.5 K/mm3 (1.3-6.7); Neutrophils Percent Auto 84.7 % (45.5-73.1); Platelet Count Result 314 k/mm3 (150-375); Red Blood Count 3.28 M/mm3 (4.6-6.20); Red Cell Distribution Width 14.3 % (11.5-14.5); White Blood Count 10.1 K/mm3 (4.5-10.0)
[2024-12-14 06:33] LABS: Alanine Aminotransferase 24 U/L (6-50); Albumin Level 2.7 g/dL (3.5-5.1); Alkaline Phosphatase 72 U/L (38-126); Anion Gap 3 mmol/L (4-12); Aspartate Amino Transferase 27 U/L (17-59); Bilirubin,Total 0.7 mg/dL (0.2-1.3); Blood Urea Nitrogen 23 mg/dL (9-20); Calcium 7.9 mg/dL (8.4-10.2); Carbon Dioxide 31 mmol/L (22-30); Chloride 114 mmol/L (98-107); Estimated CRCL calculation 79 ml/min; Estimated Glomerular Filt Rate > 60; Glucose 132 mg/dL (65-110); Lactic Acid Reflex 0.6 mmol/L (0.7-2.0); Magnesium 2.1 mg/dL (1.6-2.3); Phosphorus 3.3 mg/dL (2.5-4.5); Potassium 3.8 mmol/L (3.4-5.0); Sodium 148 mmol/L (137-145); Triglycerides 322 mg/dL (<150)
[2024-12-14] MEDS: MIDAZOLAM HCL (*CRX) 2 MG/2 ML VIAL (08:17)
[2024-12-14] MEDS: MIDAZOLAM HCL (*CRX) 2 MG/2 ML VIAL IV PUSH (08:18)
[2024-12-14] MEDS: METOPROLOL TARTRATE 25 MG TABLET PO ×2 (08:31→22:39)
[2024-12-14] MEDS: PANTOPRAZOLE SODIUM IV 40 MG VIAL IV PUSH (08:31)
[2024-12-14] MEDS: THIAMINE HCL 200 MG/2 ML VIAL 100 MG IV PUSH (08:31)
[2024-12-14] MEDS: MINERAL OIL/WHITE PETROLATUM OINTMENT 1 APPLIC EACH EYE ×2 (08:31→22:39)
[2024-12-14] MEDS: FOLIC ACID 1 MG/0.2 ML INJ IV PUSH (08:32)
[2024-12-14] MEDS: ENOXAPARIN 40 MG/0.4 ML SYRINGE SUB-Q (08:32)
[2024-12-14] MEDS: OSELTAMIVIR PHOSPHATE ORAL SUSP 75 MG/12.5 ML SYRINGE PO ×2 (08:33→22:39)
[2024-12-14] MEDS: DOXYCYCLINE 100 MG/NS 100 ML 100 MG/100 ML BAG IVPB ×2 (11:33→22:42)
[2024-12-14 12:01] LABS: Glucose Point of Care 127 mg/dl (65-105)
--- NOTE | 2024-12-14 12:14 | P.PNINT_ITS ---
Progress Note: A&P Assessment and Plan (1) Acute respiratory failure: Code(s): J96.00 - Acute respiratory failure, unspecified whether with hypoxia or hypercapnia Status: Acute Assessment and Plan: 12/12: Acute respiratory failure/impending respiratory failure likely related to altered mentation secondary to alcohol withdrawal, respiratory distress due to pneumonia and influenza A, COPD/emphysema -12/12: Intubated in the ICU -currently on CMV mode of ventilation, peep of 8 and 30% FiO2, -chest x-ray this morning shows stable diffuse lung disease consistent with pneumonia -continue bronchodilators given history of COPD -Sedated with propofol and fentanyl infusion, maintain RASS of 0 to -2, daily SBT and SAT - (2) Multifocal pneumonia: Code(s): J18.9 - Pneumonia, unspecified organism Status: Acute Assessment and Plan: 12/10: CT chest PE protocol was negative for PE, but showed bilateral multifocal pneumonia -chest x-ray also showed bilateral multifocal pneumonia -continue cefepime doxycycline, vancomycin (12/12) 12/10: Blood cultures negative x2 12/12: Sputum cultures are negative 12/12: Nasal MRSA not detected (3) COPD with emphysema: Code(s): J43.9 - Emphysema, unspecified Status: Acute Assessment and Plan: History of COPD/emphysema -currently on mechanical ventilation, continue bronchodilators (4) SVT (supraventricular tachycardia): Code(s): I47.10 - Supraventricular tachycardia, unspecified Status: Acute Assessment and Plan: Patient went into SVT on admission, appreciate cardiology evaluation and recommendation likely related to respiratory distress from pneumonia, influenza, alcohol withdrawal. -patient was started on metoprolol per tube by cardiology (12/13) -currently in sinus rhythm, rate controlled (5) Alcohol withdrawal: Code(s): F10.939 - Alcohol use, unspecified with withdrawal, unspecified Status: Acute Assessment and Plan: Patient does have a history of significant alcohol use -in the IMU he had elevated CIWA score and received multiple doses of Ativan -12/12: when I evaluated the patient he was confused, tremulous, and was in alcohol withdrawal -currently intubated and sedated (6) Tobacco dependence: Code(s): F17.200 - Nicotine dependence, unspecified, uncomplicated Status: Acute Assessment and Plan: Will associate professor of counseling patient on cessation of tobacco use once he is off the ventilator (7) Electrolyte abnormality: Code(s): E87.8 - Other disorders of electrolyte and fluid balance, not elsewhere classified Status: Acute Assessment and Plan: Will replace electrolytes as needed Plan DVT prophylaxis: Lovenox Stress ulcer prophylaxis: Protonix Nutrition: Tolerating tube feed l Code Status: Full code Critical Care Time Spent: 33 minutes 12/13: Discussed with patient's son in rounds and updated with patient's condition and plan of care. I answered all questions Due to a high probability of clinically significant, life threatening deterioration, the patient required my highest level of preparedness to intervene emergently and I personally spent this critical care time directly and personally managing the patient. This critical care time included obtaining a history; examining the patient; pulse oximetry; ordering and review of studies; arranging urgent treatment with development of a management plan; evaluation of patient's response to treatment; frequent reassessment; and discussions with other providers. It was exclusive of separately billable procedures and treating other patients and teaching time. Please see Assessment and Plan section and the rest of the note for further information on patient assessment and treatment This dictation may have been done utilizing a voice recognition system. Attempts have been made to correct errors. However, there may be uncorrected grammatical, spelling, and recognitions errors present. Subjective Date/time seen: 12/14/24 12:14 Interval history: Reason for consult: Acute respiratory failure, pneumonia, influenza a, alcohol withdrawal, supraventricular tachycardia 12/14/2024: Patient seen and examined the ICU, is intubated on CMV mode of ventilation, peep of 8, 30% FiO2. Patient is sedated with propofol and fentanyl infusion. Urine output has been adequate, afebrile. Lactic acid 0.6, LFTs are normal. Sodium 148 this morning. When I was examining the patient he was on of his propofol, patient woke up, was agitated but did not follow commands. Hemodynamically stable not requiring any pressors Review of Systems Review of Systems: ROS unobtainable: Yes unobtainable due to endotracheal tube, unobtainable due to medical condition and unobtainable due to mental status Exam Narrative: General: Intubated and sedated, in no acute distress HEENT:? Pupils equal and reactive, sclera is clear Neck:? Supple Respiratory:? Coarse breath sounds bilaterally, rales on upper lobes bilaterally, decreased air entry at bases, no wheezing Cardiac:? S1-S2 is normal, regular rate and rhythm Abdomen:? Soft, nontender, nondistended, hypoactive bowel sound Extremities:? No edema, palpable pedal pulses Neuro:? Intubated and sedated, does not answer questions or follow simple commands at this time Skin:? Warm and dry, bruising noted on bilateral upper and lower extremity Psych:? Unable to assess at this time Objective Data Vital Signs Vital Signs: Vital Signs - 24 hr 12/13/24 12:30 12/13/24 12:45 12/13/24 13:15 Temperature Pulse Rate 90 101 H 75 Respiratory Rate 23 H 26 H Blood Pressure Pulse Oximetry 96 Oxygen Delivery Mechanical Ventilation Fraction of Inspired Oxygen 30 12/13/24 13:15 12/13/24 13:25 12/13/24 13:45 Temperature Pulse Rate 75 71 73 Respiratory Rate 21 H 20 20 Blood Pressure Pulse Oximetry Oxygen Delivery Fraction of Inspired Oxygen 12/13/24 13:45 12/13/24 14:00 12/13/24 14:00 Temperature Pulse Rate 73 76 76 Respiratory Rate 20 20 Blood Pressure 125/79 Pulse Oximetry 96 Oxygen Delivery Fraction of Inspired Oxygen 12/13/24 14:00 12/13/24 14:00 12/13/24 16:00 Temperature Pulse Rate 76 76 71 Respiratory Rate 20 20 20 Blood Pressure 127/84 Pulse Oximetry 97 Oxygen Delivery Fraction of Inspired Oxygen 12/13/24 16:00 12/13/24 16:00 12/13/24 16:00 Temperature Pulse Rate 70 72 Respiratory Rate 20 Blood Pressure Pulse Oximetry Oxygen Delivery Fraction of Inspired Oxygen 30 12/13/24 16:00 12/13/24 16:00 12/13/24 16:05 Temperature Pulse Rate 72 89 70 Respiratory Rate 20 25 H Blood Pressure Pulse Oximetry 96 96 Oxygen Delivery Mechanical Ventilation Mechanical Ventilation Fraction of Inspired Oxygen 30 30 12/13/24 18:00 12/13/24 18:00 12/13/24 18:00 Temperature Pulse Rate 72 88 106 H Respiratory Rate 20 25 H Blood Pressure Pulse Oximetry Oxygen Delivery Fraction of Inspired Oxygen 12/13/24 18:00 12/13/24 18:10 12/13/24 18:10 Temperature Pulse Rate 106 H 89 89 Respiratory Rate 19 25 H 25 H Blood Pressure 146/90 H Pulse Oximetry 93 Oxygen Delivery Fraction of Inspired Oxygen 12/13/24 18:12 12/13/24 19:47 12/13/24 19:47 Temperature Pulse Rate 89 77 77 Respiratory Rate 25 H 20 Blood Pressure Pulse Oximetry 96 Oxygen Delivery Mechanical Ventilation Fraction of Inspired Oxygen 30 12/13/24 19:53 12/13/24 20:00 12/13/24 20:00 Temperature Pulse Rate 76 78 78 Respiratory Rate 20 20 20 Blood Pressure Pulse Oximetry Oxygen Delivery Fraction of Inspired Oxygen 12/13/24 20:00 12/13/24 20:00 12/13/24 20:00 Temperature Pulse Rate 79 Respiratory Rate Blood Pressure Pulse Oximetry Oxygen Delivery Mechanical Ventilation Fraction of Inspired Oxygen 30 30 12/13/24 20:01 12/13/24 20:07 12/13/24 22:00 Temperature 98.2 F Pulse Rate 77 81 71 Respiratory Rate 20 Blood Pressure 110/74 Pulse Oximetry 97 Oxygen Delivery Fraction of Inspired Oxygen 12/13/24 22:00 12/13/24 22:00 12/13/24 22:00 Temperature Pulse Rate 72 72 71 Respiratory Rate 20 20 20 Blood Pressure 105/74 Pulse Oximetry 100 Oxygen Delivery Fraction of Inspired Oxygen 12/13/24 22:58 12/13/24 22:58 12/13/24 23:01 Temperature Pulse Rate 76 76 74 Respiratory Rate 21 H 21 H Blood Pressure Pulse Oximetry 96 Oxygen Delivery Mechanical Ventilation Fraction of Inspired Oxygen 30 12/14/24 00:00 12/14/24 00:00 12/14/24 00:00 Temperature Pulse Rate 85 85 Respiratory Rate 20 20 Blood Pressure Pulse Oximetry Oxygen Delivery Mechanical Ventilation Fraction of Inspired Oxygen 30 12/14/24 00:00 12/14/24 00:00 12/14/24 00:00 Temperature 99.6 F Pulse Rate 83 82 Respiratory Rate 15 Blood Pressure 105/67 Pulse Oximetry 97 Oxygen Delivery Fraction of Inspired Oxygen 30 12/14/24 01:00 12/14/24 01:00 12/14/24 02:00 Temperature Pulse Rate 83 83 87 Respiratory Rate 20 20 20 Blood Pressure Pulse Oximetry Oxygen Delivery Fraction of Inspired Oxygen 12/14/24 02:00 12/14/24 02:00 12/14/24 02:00 Temperature Pulse Rate 87 87 87 Respiratory Rate 20 20 Blood Pressure 98/70 L Pulse Oximetry 96 Oxygen Delivery Fraction of Inspired Oxygen 12/14/24 02:03 12/14/24 02:03 12/14/24 02:10 Temperature Pulse Rate 83 83 86 Respiratory Rate 22 H 20 Blood Pressure Pulse Oximetry 98 Oxygen Delivery Mechanical Ventilation Fraction of Inspired Oxygen 30 12/14/24 03:38 12/14/24 03:38 12/14/24 03:59 Temperature Pulse Rate 100 100 Respiratory Rate 24 H 24 H Blood Pressure Pulse Oximetry Oxygen Delivery Mechanical Ventilation Fraction of Inspired Oxygen 30 12/14/24 04:00 12/14/24 04:00 12/14/24 04:00 Temperature 100.0 F H Pulse Rate 87 87 Respiratory Rate 20 20 Blood Pressure 105/77 Pulse Oximetry 99 Oxygen Delivery Fraction of Inspired Oxygen 30 12/14/24 04:00 12/14/24 04:00 12/14/24 05:02 Temperature Pulse Rate 87 87 79 Respiratory Rate 20 Blood Pressure Pulse Oximetry 100 Oxygen Delivery Mechanical Ventilation Fraction of Inspired Oxygen 30 12/14/24 06:00 12/14/24 06:00 12/14/24 06:00 Temperature Pulse Rate 81 81 81 Respiratory Rate 20 20 20 Blood Pressure 104/73 Pulse Oximetry 94 Oxygen Delivery Fraction of Inspired Oxygen 12/14/24 06:00 12/14/24 08:00 12/14/24 08:00 Temperature 98.4 F Pulse Rate 81 88 Respiratory Rate 21 H Blood Pressure 116/74 Pulse Oximetry 95 Oxygen Delivery Fraction of Inspired Oxygen 12/14/24 08:00 12/14/24 08:00 12/14/24 08:00 Temperature Pulse Rate 88 Respiratory Rate Blood Pressure Pulse Oximetry 95 Oxygen Delivery Mechanical Ventilation Fraction of Inspired Oxygen 30 30 12/14/24 08:00 12/14/24 08:16 12/14/24 08:16 Temperature Pulse Rate 88 101 H 101 H Respiratory Rate 24 H 24 H 24 H Blood Pressure Pulse Oximetry Oxygen Delivery Fraction of Inspired Oxygen 12/14/24 08:22 12/14/24 08:22 12/14/24 10:00 Temperature Pulse Rate 93 93 69 Respiratory Rate 22 H Blood Pressure Pulse Oximetry 95 Oxygen Delivery Mechanical Ventilation Fraction of Inspired Oxygen 30 12/14/24 10:00 12/14/24 10:00 12/14/24 10:00 Temperature Pulse Rate 68 68 68 Respiratory Rate 20 20 20 Blood Pressure 97/69 L Pulse Oximetry 93 Oxygen Delivery Fraction of Inspired Oxygen 12/14/24 11:13 12/14/24 12:00 Temperature 98.0 F Pulse Rate 68 76 Respiratory Rate 19 Blood Pressure 102/66 Pulse Oximetry 96 95 Oxygen Delivery Mechanical Ventilation Fraction of Inspired Oxygen 30 Intake/Output Intake/Output: Intake & Output 12/11/24 12/12/24 12/13/24 12/14/24 23:59 23:59 23:59 23:59 Intake Total 1801.2 2515.1 2657.8 1634.1 Output Total 1200 2500 1075 325 Balance 601.2 15.1 1582.8 1309.1 Meds/Results Medications: Active Medications Generic Name Dose Route Start Last Admin Trade Name Freq PRN Reason Stop Dose Admin Acetaminophen 650 mg 12/11/24 07:58 Acetaminophen 325 Mg Tablet PO Q4H PRN Mild Pain (1-3) or Fever Albuterol 2 puff 12/11/24 00:26 Albuterol Sulfate (*Sp) Aerosol 1 Puff INHALATION QIDRT PRN shortness of breath or wheezing Albuterol/Ipratropium 3 ml 12/11/24 02:00 12/14/24 08:19 Ipratropium 0.5 Mg/Albuterol Sulfate 2.5 Mg Ampul.Neb 3 Ml INHALATION 3 ml Q6HRT SANTIAGO Administration Amlodipine Besylate 10 mg 12/11/24 09:00 12/12/24 08:39 Amlodipine Besylate 10 Mg Tablet PO Not Given DAILY SANTIAGO Chlordiazepoxide HCl 50 mg 12/11/24 06:00 12/11/24 05:04 Chlordiazepoxide (*Crx) 25 Mg Capsule PO 50 mg Q6HR SANTIAGO Administration Dextrose 12.5 gm 12/11/24 11:48 Dextrose 50% 25 Gm/50 Ml Syringe IV PUSH PRN PRN Hypoglycemia Protocol Enoxaparin Sodium 40 mg 12/13/24 09:00 12/14/24 08:32 Enoxaparin 40 Mg/0.4 Ml Syringe SUB-Q 40 mg DAILY SANTIAGO Administration Fentanyl Citrate 50 mcg 12/12/24 23:31 12/13/24 18:12 Fentanyl Citrate Inj (*Crx) 100 Mcg/2 Ml Vial IV PUSH 50 mcg Q2H PRN Administration AGITATION WHILE ON VENT Folic Acid 1 mg 12/11/24 09:00 12/14/24 08:32 Folic Acid 1 Mg/0.2 Ml Inj IV PUSH 1 mg QAM SANTIAGO Administration Glucagon 1 mg 12/11/24 11:48 Glucagon For Inj 1 Mg Vial IM PRN PRN Hypoglycemia Protocol Glucose 15 gm 12/11/24 11:48 Glucose Oral Gel 15 Gm Of Glucse In 37.5 Gm Tube PO PRN PRN Hypoglycemia Protocol Cefepime HCl 2 gm in 50 mls @ 100 mls/hr 12/11/24 09:00 12/14/24 08:31 Maxipime 2 Gm/Ns 50 Ml IVPB 100 mls/hr Q8H SANTIAGO Administration Dextrose 1,000 mls @ 100 mls/hr 12/11/24 11:48 Dextrose 5% 1,000 Ml IVPB PRN PRN Hypoglycemia Protocol Propofol 100 mls @ 21.45 mls/hr 12/12/24 09:55 12/14/24 10:00 Diprivan IV CONT 50 mcg/kg/min .Q4H40M SANTIAGO 21.45 mls/hr Titration Protocol 50 MCG/KG/MIN Doxycycline Hyclate 100 mg in 100 mls @ 100 mls/hr 12/12/24 11:00 12/14/24 11:33 Vibramycin 100 Mg/Ns 100 Ml IVPB 100 mls/hr Q12H SANTIAGO Administration Vancomycin HCl 1,500 mg in 500 mls @ 250 mls/hr 12/13/24 01:00 12/14/24 03:00 Vancomycin 1,500 Mg/Ns 500 Ml IVPB Infused Q12H SANTIAGO Infusion Fentanyl Citrate 2,500 mcg in 250 mls @ 20 mls/hr 12/13/24 08:15 12/14/24 10:00 Fentanyl 2,500 Mcg/Ns 250 Ml IV CONT 200 mcg/hr .[id number] SANTIAGO 20 mls/hr Titration Protocol 200 MCG/HR Levalbuterol HCl 0.63 mg 12/11/24 09:00 Levalbuterol Neb 1.25 Mg/3 Ml INHALATION Q6HRT PRN Dryness Lorazepam 2 mg 12/11/24 04:19 12/12/24 01:57 Lorazepam Inj (*Crx) 2 Mg/Ml Vial IV PUSH 2 mg Q4H PRN Administration CIWA >8 Metoprolol Tartrate 5 mg 12/12/24 01:00 12/12/24 08:41 Metoprolol Tartrate Inj 5 Mg/5 Ml Vial IV PUSH 5 mg Q4H SANTIAGO Administration Metoprolol Tartrate 25 mg 12/13/24 21:00 12/14/24 08:31 Metoprolol Tartrate 25 Mg Tablet PO 25 mg Q12HR SANTIAGO Administration Multi-Ingred Cream/Lotion/Oil/Oint 1 applic 12/12/24 21:00 12/14/24 08:31 Mineral Oil/White Petrolatum Ointment EACH EYE 1 applic Q12HR SANTIAGO Administration Ondansetron HCl 4 mg 12/11/24 04:19 Ondansetron Inj 4 Mg/2 Ml Vial IV PUSH Q6H PRN Nausea And Vomiting Oseltamivir Phosphate 75 mg 12/12/24 21:00 12/14/24 08:33 Oseltamivir Phosphate Oral Susp 75 Mg/12.5 Ml Syringe PO 12/17/24 20:59 75 mg Q12HR SANTIAGO Administration Pantoprazole Sodium 40 mg 12/13/24 09:00 12/14/24 08:31 Pantoprazole Sodium Iv 40 Mg Vial IV PUSH 40 mg QAM SANTIAGO Administration Sodium Chloride 20 ml 12/12/24 11:00 Central Line Flush IV PUSH PRN PRN after blood draws Sodium Chloride 10 ml 12/12/24 11:00 Central Line Flush IV PUSH PRN PRN with TPN bag changes Sodium Chloride 10 ml 12/12/24 14:00 12/14/24 06:19 Central Line Flush IV PUSH 10 ml Q8HR SANTIAGO Administration Sodium Chloride 10 ml 12/13/24 14:00 12/14/24 06:19 Central Line Flush IV PUSH 10 ml Q8HR SANTIAGO Administration Sodium Chloride 20 ml 12/13/24 12:24 Central Line Flush IV PUSH PRN PRN after blood draws Thiamine HCl 100 mg 12/11/24 09:00 12/14/24 08:31 Thiamine Hcl 200 Mg/2 Ml Vial IV PUSH 100 mg QAM SANTIAGO Administration Radiology Results: ITS Impressions Chest CTA 12/10/24 19:15 IMPRESSION: No pulmonary embolism. No aortic dissection. Multifocal pneumonia. Abdomen X-Ray 12/12/24 10:23 IMPRESSION: 1. Nasogastric tube tip in the stomach. Chest X-Ray 12/14/24 06:11 IMPRESSION: 1. Stable diffuse lung disease, consistent with pneumonia. 2. The PICC loops into the right internal jugular vein with tip at the junction of the right internal jugular vein and right brachiocephalic vein. Labs Labs: Laboratory Results - last 24 hr 12/13/24 12/13/24 12/14/24 18:16 23:58 00:07 WBC RBC Hgb Hct MCV MCH MCHC RDW Plt Count MPV Immature Gran % (Auto) Neut % (Auto) Lymph % (Auto) [place] % (Auto) Eos % (Auto) Baso % (Auto) Lymph # (Auto) [place] # (Auto) Eos # (Auto) Baso # (Auto) Abs Immat Gran (auto) Absolute Neuts (auto) Absolute Nucleated RBC Nucleated RBC % Puncture Site ABG pH ABG pCO2 ABG pO2 ABG PO2/FiO2 Ratio ABG HCO3 ABG O2 Saturation ABG O2 Content ABG Base Excess A-a Gradient Oxyhemoglobin Carboxyhemoglobin Methemoglobin Reduced Hemoglobin Total Hemoglobin O2 Delivery Device O2 Liters/Min Minute Volume Vent Rate Vent Mode FiO2 Tidal Volume PEEP Peak Inspir Pressure Pressure Support Sodium Potassium Chloride Carbon Dioxide Anion Gap BUN Creatinine Estim Creat Clear Calc Estimated GFR Glucose POC Capillary Glucose 84 94 Lactic Acid Calcium Phosphorus Magnesium Total Bilirubin AST ALT Alkaline Phosphatase Total Protein Albumin Triglycerides Vancomycin Trough 15.6 12/14/24 12/14/24 12/14/24 05:31 06:08 11:54 WBC 10.1 H RBC 3.28 L Hgb 10.9 L Hct 33.5 L MCV 102.1 H MCH 33.2 MCHC 32.5 RDW 14.3 Plt Count 314 MPV 9.7 Immature Gran % (Auto) 1.3 H Neut % (Auto) 84.7 H Lymph % (Auto) 5.0 L [place] % (Auto) 8.0 Eos % (Auto) 0.9 Baso % (Auto) 0.1 L Lymph # (Auto) 0.50 L [place] # (Auto) 0.8 H Eos # (Auto) 0.1 Baso # (Auto) 0.0 Abs Immat Gran (auto) 0.13 H Absolute Neuts (auto) 8.5 H Absolute Nucleated RBC 0.000 Nucleated RBC % 0.0 Puncture Site Right radial ABG pH 7.391 ABG pCO2 43.8 ABG pO2 75.8 L ABG PO2/FiO2 Ratio 2.53 ABG HCO3 26.0 ABG O2 Saturation 95.1 ABG O2 Content 15.7 L ABG Base Excess 0.8 A-a Gradient 86.6 Oxyhemoglobin 94.1 Carboxyhemoglobin 0.6 Methemoglobin 0.2 Reduced Hemoglobin 5.1 H Total Hemoglobin 11.8 L O2 Delivery Device Ventilator O2 Liters/Min Not Reportable Minute Volume Not Reportable Vent Rate 20 Vent Mode Cmv FiO2 30 Tidal Volume 480 PEEP 8 Peak Inspir Pressure Not Reportable Pressure Support Not Reportable Sodium 148 H Potassium 3.8 Chloride 114 H Carbon Dioxide 31 H Anion Gap 3 L BUN 23 H Creatinine 0.86 Estim Creat Clear Calc 79 Estimated GFR > 60 Glucose 132 H POC Capillary Glucose 127 H Lactic Acid 0.6 L Calcium 7.9 L Phosphorus 3.3 Magnesium 2.1 Total Bilirubin 0.7 AST 27 ALT 24 Alkaline Phosphatase 72 Total Protein 6.0 L Albumin 2.7 L Triglycerides 322 H Vancomycin Trough Quality VTE Prophylaxis VTE prophylaxis: pharmacologic ordered
--- NOTE | 2024-12-14 22:35 | PCRCNOTE ---
Patients 2000 breathing tx was completed after ordered timeframe due to RT intubating a different critically ill patient. This patient did receive their breathing tx and nurse aware.
[2024-12-15] VITALS (32 sets, daily range): BP systolic 104–136; BP diastolic 65–81; PULSE 62–94; RESP 17–25; TEMP 36.6–37.2; O2SAT 92–97
[2024-12-15] MEDS: CEFEPIME 2 GM/NS 50 ML 2 GM/50 ML BAG IVPB ×3 (00:30→17:30)
[2024-12-15] MEDS: VANCOMYCIN 1,500 MG/NS 500 ML 1,500 MG/500 ML BAG 250 MG IVPB (00:30)
[2024-12-15 00:48] LABS: Glucose Point of Care 102 mg/dl (65-105)
[2024-12-15] MEDS: FENTANYL 2,500MCG/NS250ML(*CRX 2,500 MCG/250 ML BAG 20 MCG IV CONT ×2 (02:21→15:47)
[2024-12-15] MEDS: PROPOFOL IV EMULSION 100 ML 21.45 MG IV CONT ×5 (02:22→20:55)
[2024-12-15] MEDS: IPRATROPIUM 0.5 MG/ALBUTEROL SULFATE 2.5 MG AMPUL.NEB 3 ML INHALATION ×2 (02:44→20:10)
[2024-12-15 05:50] LABS: Alveolar/Arterial O2 Gradient 86.4 mmHg; Base Excess ABG 0.3 mEq/l (+/-2.0); Carboxyhemoglobin 0.8 % THb (0-2.0); Fractional Inspired Oxygen 30 %; HCO3 ABG 26.3 mEq/l (22.0-26.0); Methemoglobin ABG 0.2 %THb (0-1.5); Oxygen Content ABG 14.3 %vol (16.0-22.0); Oxygen Saturation ABG 93.1 % (95.0-100.0); Oxyhemoglobin 92.4 % THb (90.0-100.0); PO2 ABG 69.9 mmHg (80.0-100.0); PO2 FiO2 Ratio Arterial Blood 2.33 %; Reduced Hemoglobin 6.6 %THb (0-5.0); pH ABG 7.348 (7.350-7.450)
[2024-12-15 05:51] LABS: Device VENTILATOR; Modified Allen's Test Pass; Site Drawn RIGHT RADIAL
[2024-12-15 05:52] LABS: Arterial Blood Gas PEEP 8 cmH2O; Arterial Blood Gas Tidal Volume 480 ml; Arterial Blood Gas Vent Mode CMV; Arterial Blood Gas Ventilator rate 20 /MIN
[2024-12-15] MEDS: CENTRAL LINE FLUSH 10 ML IV PUSH ×3 (06:00→21:00)
[2024-12-15 06:43] LABS: Basophils Percent Auto 0.2 % (0.2-1.2); Eosinophils Absolute Auto 0.2 K/mm3 (0-0.3); Eosinophils Percent Auto 1.8 % (0-4.4); Hematocrit 31.6 % (42.0-52.0); Hemoglobin 10.1 g/dL (14.0-18.0); Immature Granulocyte Absolute 0.12 K/mm3 (0.00-0.031); Immature Granulocyte Percent A 1.5 % (0-0.5); Lymphocytes Absolute Auto 0.75 K/mm3 (0.9-3.2); Lymphocytes Percent Auto 9.2 % (18.3-44.2); Mean Corpuscular Hemoglobin 33.8 pg (26-34); Mean Corpuscular Volume 105.7 fl (80-100); Mean Platelet Volume 10.2 fl (7.4-10.4); Monocytes Absolute Auto 0.9 K/mm3 (0.1-0.6); Monocytes Percent Auto 10.8 % (2.6-8.5); Neutrophils Absolute Auto 6.2 K/mm3 (1.3-6.7); Neutrophils Percent Auto 76.5 % (45.5-73.1); Platelet Count Result 301 k/mm3 (150-375); Red Blood Count 2.99 M/mm3 (4.6-6.20); Red Cell Distribution Width 14.8 % (11.5-14.5); White Blood Count 8.2 K/mm3 (4.5-10.0)
[2024-12-15 06:45] LABS: Alanine Aminotransferase 24 U/L (6-50); Albumin Level 2.6 g/dL (3.5-5.1); Alkaline Phosphatase 66 U/L (38-126); Anion Gap 2 mmol/L (4-12); Aspartate Amino Transferase 29 U/L (17-59); Bilirubin,Total 0.6 mg/dL (0.2-1.3); Blood Urea Nitrogen 30 mg/dL (9-20); Calcium 7.9 mg/dL (8.4-10.2); Carbon Dioxide 28 mmol/L (22-30); Chloride 117 mmol/L (98-107); Estimated CRCL calculation 68 ml/min; Estimated Glomerular Filt Rate > 60; Glucose 110 mg/dL (65-110); Magnesium 2.1 mg/dL (1.6-2.3); Phosphorus 3.9 mg/dL (2.5-4.5); Potassium 4.3 mmol/L (3.4-5.0); Sodium 147 mmol/L (137-145)
[2024-12-15 08:09] LABS: Macrocytosis 1+ (NORMAL); Platelet Estimate Adequate (Adequate); Schistocytes None Seen
[2024-12-15] MEDS: METOPROLOL TARTRATE 25 MG TABLET PO ×2 (08:29→20:58)
[2024-12-15] MEDS: THIAMINE HCL 200 MG/2 ML VIAL 100 MG IV PUSH (08:29)
[2024-12-15] MEDS: PANTOPRAZOLE SODIUM IV 40 MG VIAL IV PUSH (08:29)
[2024-12-15] MEDS: FUROSEMIDE INJ 40 MG/4 ML VIAL IV PUSH (08:29)
[2024-12-15] MEDS: OSELTAMIVIR PHOSPHATE ORAL SUSP 75 MG/12.5 ML SYRINGE PO ×2 (08:30→20:59)
[2024-12-15] MEDS: FOLIC ACID 1 MG/0.2 ML INJ IV PUSH (08:30)
[2024-12-15] MEDS: ENOXAPARIN 40 MG/0.4 ML SYRINGE SUB-Q (08:30)
[2024-12-15] MEDS: MINERAL OIL/WHITE PETROLATUM OINTMENT 1 APPLIC EACH EYE ×2 (08:31→21:00)
[2024-12-15] MEDS: DOXYCYCLINE 100 MG/NS 100 ML 100 MG/100 ML BAG IVPB ×2 (11:21→23:57)
[2024-12-15 11:45] LABS: Glucose Point of Care 94 mg/dl (65-105)
--- NOTE | 2024-12-15 12:20 | WPDINTPN ---
Progress Note: A&P Assessment and Plan (1) Acute respiratory failure: Code(s): J96.00 - Acute respiratory failure, unspecified whether with hypoxia or hypercapnia Status: Acute Assessment and Plan: 12/12: Acute respiratory failure/impending respiratory failure likely related to altered mentation secondary to alcohol withdrawal, respiratory distress due to pneumonia and influenza A, COPD/emphysema -12/12: Intubated in the ICU -currently on CMV mode of ventilation, peep of 8 and 30% FiO2, -chest x-ray this morning shows stable diffuse lung disease consistent with pneumonia -continue bronchodilators given history of COPD -Sedated with propofol and fentanyl infusion, maintain RASS of 0 to -2, daily SBT and SAT -12/15: Will obtain CT scan of the chest without contrast to evaluate architecture of the lungs (2) Multifocal pneumonia: Code(s): J18.9 - Pneumonia, unspecified organism Status: Acute Assessment and Plan: 12/10: CT chest PE protocol was negative for PE, but showed bilateral multifocal pneumonia -chest x-ray also showed bilateral multifocal pneumonia -continue cefepime doxycycline, vancomycin (12/12) 12/10: Blood cultures negative x2 12/12: Sputum cultures are negative 12/12: Nasal MRSA not detected (3) COPD with emphysema: Code(s): J43.9 - Emphysema, unspecified Status: Acute Assessment and Plan: History of COPD/emphysema -currently on mechanical ventilation, continue bronchodilators (4) SVT (supraventricular tachycardia): Code(s): I47.10 - Supraventricular tachycardia, unspecified Status: Acute Assessment and Plan: Patient went into SVT on admission, appreciate cardiology evaluation and recommendation likely related to respiratory distress from pneumonia, influenza, alcohol withdrawal. -patient was started on metoprolol per tube by cardiology (12/13) -currently in sinus rhythm, rate controlled, patient does have intermittent SVTs which is short-lived (5) Alcohol withdrawal: Code(s): F10.939 - Alcohol use, unspecified with withdrawal, unspecified Status: Acute Assessment and Plan: Patient does have a history of significant alcohol use -in the IMU he had elevated CIWA score and received multiple doses of Ativan -12/12: when I evaluated the patient he was confused, tremulous, and was in alcohol withdrawal -currently intubated and sedated (6) Tobacco dependence: Code(s): F17.200 - Nicotine dependence, unspecified, uncomplicated Status: Acute Assessment and Plan: 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 I answered all questions Due to a high probability of clinically significant, life threatening deterioration, the patient required my highest level of preparedness to intervene emergently and I personally spent this critical care time directly and personally managing the patient. This critical care time included obtaining a history; examining the patient; pulse oximetry; ordering and review of studies; arranging urgent treatment with development of a management plan; evaluation of patient's response to treatment; frequent reassessment; and discussions with other providers. It was exclusive of separately billable procedures and treating other patients and teaching time. Please see Assessment and Plan section and the rest of the note for further information on patient assessment and treatment This dictation may have been done utilizing a voice recognition system. Attempts have been made to correct errors. However, there may be uncorrected grammatical, spelling, and recognitions errors present. Subjective Date/time seen: 12/15/24 12:20 Interval history: Reason for consult: Acute respiratory failure, pneumonia, influenza a, alcohol withdrawal, supraventricular tachycardia 12/15/2024: Patient seen and examined the ICU, is intubated on CMV mode of ventilation, peep of 8, 30% FiO2. Patient is sedated with propofol and fentanyl infusion. Urine output has been adequate, afebrile. Lactic acid 0.6, LFTs are normal. Sodium 147 this morning. Hemodynamically stable not requiring any pressors. Patient continues to have SVTs intermittently. Otherwise most of the time the rate is controlled Review of Systems Review of Systems: ROS unobtainable: Yes unobtainable due to endotracheal tube, unobtainable due to medical condition and unobtainable due to mental status Exam Narrative: General: Intubated and sedated, in no acute distress HEENT:? Pupils equal and reactive, sclera is clear Neck:? Supple Respiratory:? Coarse breath sounds bilaterally, rales on upper lobes bilaterally, decreased air entry at bases, no wheezing Cardiac:? S1-S2 is normal, regular rate and rhythm Abdomen:? Soft, nontender, nondistended, hypoactive bowel sound Extremities:? No edema, palpable pedal pulses Neuro:? Intubated and sedated, does not answer questions or follow simple commands at this time Skin:? Warm and dry, bruising noted on bilateral upper and lower extremity Psych:? Unable to assess at this time Objective Data Vital Signs Vital Signs: Vital Signs - 24 hr 12/14/24 12:45 12/14/24 12:45 12/14/24 13:30 Temperature Pulse Rate 82 82 77 Respiratory Rate 19 19 19 Blood Pressure Pulse Oximetry Oxygen Delivery Fraction of Inspired Oxygen 12/14/24 13:33 12/14/24 14:00 12/14/24 14:00 Temperature Pulse Rate 77 76 75 Respiratory Rate 19 20 Blood Pressure 105/73 Pulse Oximetry 93 Oxygen Delivery Fraction of Inspired Oxygen 12/14/24 14:00 12/14/24 14:00 12/14/24 14:19 Temperature Pulse Rate 75 75 75 Respiratory Rate 20 20 Blood Pressure Pulse Oximetry 95 Oxygen Delivery Mechanical Ventilation Fraction of Inspired Oxygen 30 12/14/24 14:19 12/14/24 14:32 12/14/24 15:14 Temperature 99.5 F Pulse Rate 75 75 92 Respiratory Rate 20 21 H 20 Blood Pressure 91/59 L Pulse Oximetry Oxygen Delivery Fraction of Inspired Oxygen 12/14/24 16:00 12/14/24 16:00 12/14/24 16:00 Temperature 98.4 F Pulse Rate 73 Respiratory Rate 20 Blood Pressure 106/68 Pulse Oximetry 95 95 Oxygen Delivery Mechanical Ventilation Fraction of Inspired Oxygen 30 30 12/14/24 16:00 12/14/24 16:00 12/14/24 16:00 Temperature Pulse Rate 73 73 74 Respiratory Rate 20 20 Blood Pressure Pulse Oximetry Oxygen Delivery Fraction of Inspired Oxygen 12/14/24 17:07 12/14/24 17:07 12/14/24 17:19 Temperature Pulse Rate 74 74 68 Respiratory Rate 24 H 24 H Blood Pressure Pulse Oximetry 94 Oxygen Delivery Mechanical Ventilation Fraction of Inspired Oxygen 30 12/14/24 18:00 12/14/24 18:00 12/14/24 18:00 Temperature Pulse Rate 77 77 77 Respiratory Rate 21 H 21 H 21 H Blood Pressure 106/66 Pulse Oximetry 95 Oxygen Delivery Fraction of Inspired Oxygen 12/14/24 18:00 12/14/24 20:00 12/14/24 20:00 Temperature Pulse Rate 81 79 79 Respiratory Rate 21 H 21 H Blood Pressure Pulse Oximetry Oxygen Delivery Fraction of Inspired Oxygen 12/14/24 20:00 12/14/24 20:00 12/14/24 20:00 Temperature 99.1 F Pulse Rate 79 Respiratory Rate 22 H Blood Pressure 108/69 Pulse Oximetry 95 Oxygen Delivery Mechanical Ventilation Fraction of Inspired Oxygen 30 30 12/14/24 20:00 12/14/24 21:45 12/14/24 21:47 Temperature Pulse Rate 80 79 89 Respiratory Rate 23 H 21 H Blood Pressure Pulse Oximetry 96 Oxygen Delivery Fraction of Inspired Oxygen 12/14/24 21:47 12/14/24 21:55 12/14/24 21:55 Temperature Pulse Rate 89 83 81 Respiratory Rate 21 H 20 Blood Pressure Pulse Oximetry 100 Oxygen Delivery Mechanical Ventilation Fraction of Inspired Oxygen 30 12/14/24 22:00 12/14/24 22:00 12/14/24 22:00 Temperature Pulse Rate 80 83 83 Respiratory Rate 22 H 23 H 23 H Blood Pressure 120/78 Pulse Oximetry 96 Oxygen Delivery Fraction of Inspired Oxygen 12/14/24 22:00 12/14/24 22:05 12/14/24 22:39 Temperature Pulse Rate 80 81 98 Respiratory Rate 20 Blood Pressure Pulse Oximetry Oxygen Delivery Fraction of Inspired Oxygen 12/14/24 23:35 12/15/24 00:00 12/15/24 00:00 Temperature Pulse Rate 75 Respiratory Rate Blood Pressure Pulse Oximetry 96 Oxygen Delivery Mechanical Ventilation Mechanical Ventilation Fraction of Inspired Oxygen 30 30 30 12/15/24 00:00 12/15/24 00:00 12/15/24 00:00 Temperature 98.9 F Pulse Rate 80 80 76 Respiratory Rate 22 H 22 H 20 Blood Pressure 112/68 Pulse Oximetry 92 Oxygen Delivery Fraction of Inspired Oxygen 12/15/24 00:00 12/15/24 02:00 12/15/24 02:00 Temperature Pulse Rate 77 77 77 Respiratory Rate 21 H 21 H Blood Pressure Pulse Oximetry Oxygen Delivery Fraction of Inspired Oxygen 12/15/24 02:00 12/15/24 02:00 12/15/24 02:21 Temperature Pulse Rate 79 79 79 Respiratory Rate 20 20 Blood Pressure 116/69 Pulse Oximetry 97 Oxygen Delivery Fraction of Inspired Oxygen 12/15/24 02:21 12/15/24 02:22 12/15/24 02:22 Temperature Pulse Rate 79 80 80 Respiratory Rate 20 20 20 Blood Pressure Pulse Oximetry Oxygen Delivery Fraction of Inspired Oxygen 12/15/24 02:44 12/15/24 02:46 12/15/24 02:51 Temperature Pulse Rate 72 77 78 Respiratory Rate 20 20 Blood Pressure Pulse Oximetry 93 Oxygen Delivery Mechanical Ventilation Fraction of Inspired Oxygen 30 12/15/24 04:00 12/15/24 04:00 12/15/24 04:00 Temperature Pulse Rate 76 76 Respiratory Rate 20 20 Blood Pressure Pulse Oximetry Oxygen Delivery Mechanical Ventilation Fraction of Inspired Oxygen 30 12/15/24 04:00 12/15/24 04:00 12/15/24 04:00 Temperature 98.9 F Pulse Rate 77 79 Respiratory Rate 20 Blood Pressure 104/65 Pulse Oximetry 96 Oxygen Delivery Fraction of Inspired Oxygen 30 12/15/24 05:45 12/15/24 06:00 12/15/24 06:00 Temperature Pulse Rate 74 76 76 Respiratory Rate 20 20 Blood Pressure Pulse Oximetry 94 Oxygen Delivery Mechanical Ventilation Fraction of Inspired Oxygen 30 12/15/24 06:00 12/15/24 06:00 12/15/24 07:14 Temperature Pulse Rate 78 78 78 Respiratory Rate 20 25 H Blood Pressure 132/79 Pulse Oximetry 96 Oxygen Delivery Fraction of Inspired Oxygen 12/15/24 07:14 12/15/24 08:00 12/15/24 08:00 Temperature 98 F Pulse Rate 78 81 Respiratory Rate 25 H 21 H Blood Pressure 122/73 Pulse Oximetry 96 Oxygen Delivery Fraction of Inspired Oxygen 30 12/15/24 08:00 12/15/24 08:00 12/15/24 08:00 Temperature Pulse Rate 81 81 Respiratory Rate 21 H Blood Pressure Pulse Oximetry Oxygen Delivery Mechanical Ventilation Fraction of Inspired Oxygen 30 12/15/24 08:00 12/15/24 10:00 12/15/24 10:00 Temperature Pulse Rate 81 70 69 Respiratory Rate 21 H 20 Blood Pressure 104/68 Pulse Oximetry 97 Oxygen Delivery Fraction of Inspired Oxygen 12/15/24 10:00 12/15/24 10:00 12/15/24 11:34 Temperature Pulse Rate 69 69 73 Respiratory Rate 20 20 19 Blood Pressure Pulse Oximetry Oxygen Delivery Fraction of Inspired Oxygen 12/15/24 11:34 12/15/24 11:43 Temperature Pulse Rate 73 80 Respiratory Rate 19 Blood Pressure Pulse Oximetry 96 Oxygen Delivery Mechanical Ventilation Fraction of Inspired Oxygen 30 Intake/Output Intake/Output: Intake & Output 12/12/24 12/13/24 12/14/24 12/15/24 23:59 23:59 23:59 23:59 Intake Total 2515.1 2657.8 2930.4 2499.6 Output Total 2500 1075 825 625 Balance 15.1 1582.8 2105.4 1874.6 Meds/Results Medications: Active Medications Generic Name Dose Route Start Last Admin Trade Name Freq PRN Reason Stop Dose Admin Acetaminophen 650 mg 12/11/24 07:58 Acetaminophen 325 Mg Tablet PO Q4H PRN Mild Pain (1-3) or Fever Albuterol 2 puff 12/11/24 00:26 Albuterol Sulfate (*Sp) Aerosol 1 Puff INHALATION QIDRT PRN shortness of breath or wheezing Albuterol/Ipratropium 3 ml 12/11/24 02:00 12/15/24 02:44 Ipratropium 0.5 Mg/Albuterol Sulfate 2.5 Mg Ampul.Neb 3 Ml INHALATION 3 ml Q6HRT SANTIAGO Administration Amlodipine Besylate 10 mg 12/11/24 09:00 12/12/24 08:39 Amlodipine Besylate 10 Mg Tablet PO Not Given DAILY SANTIAGO Chlordiazepoxide HCl 50 mg 12/11/24 06:00 12/11/24 05:04 Chlordiazepoxide (*Crx) 25 Mg Capsule PO 50 mg Q6HR SANTIAGO Administration Dextrose 12.5 gm 12/11/24 11:48 Dextrose 50% 25 Gm/50 Ml Syringe IV PUSH PRN PRN Hypoglycemia Protocol Enoxaparin Sodium 40 mg 12/13/24 09:00 12/15/24 08:30 Enoxaparin 40 Mg/0.4 Ml Syringe SUB-Q 40 mg DAILY SANTIAGO Administration Fentanyl Citrate 50 mcg 12/12/24 23:31 12/13/24 18:12 Fentanyl Citrate Inj (*Crx) 100 Mcg/2 Ml Vial IV PUSH 50 mcg Q2H PRN Administration AGITATION WHILE ON VENT Folic Acid 1 mg 12/11/24 09:00 12/15/24 08:30 Folic Acid 1 Mg/0.2 Ml Inj IV PUSH 1 mg QAM SANTIAGO Administration Glucagon 1 mg 12/11/24 11:48 Glucagon For Inj 1 Mg Vial IM PRN PRN Hypoglycemia Protocol Glucose 15 gm 12/11/24 11:48 Glucose Oral Gel 15 Gm Of Glucse In 37.5 Gm Tube PO PRN PRN Hypoglycemia Protocol Cefepime HCl 2 gm in 50 mls @ 100 mls/hr 12/11/24 09:00 12/15/24 08:29 Maxipime 2 Gm/Ns 50 Ml IVPB 100 mls/hr Q8H SANTIAGO Administration Dextrose 1,000 mls @ 100 mls/hr 12/11/24 11:48 Dextrose 5% 1,000 Ml IVPB PRN PRN Hypoglycemia Protocol Propofol 100 mls @ 21.45 mls/hr 12/12/24 09:55 12/15/24 11:34 Diprivan IV CONT 50 mcg/kg/min .Q4H40M SANTIAGO 21.45 mls/hr Administration Protocol 50 MCG/KG/MIN Doxycycline Hyclate 100 mg in 100 mls @ 100 mls/hr 12/12/24 11:00 12/15/24 11:21 Vibramycin 100 Mg/Ns 100 Ml IVPB 100 mls/hr Q12H SANTIAGO Administration Vancomycin HCl 1,500 mg in 500 mls @ 250 mls/hr 12/13/24 01:00 12/15/24 02:30 Vancomycin 1,500 Mg/Ns 500 Ml IVPB Infused Q12H SANTIAGO Infusion Fentanyl Citrate 2,500 mcg in 250 mls @ 20 mls/hr 12/13/24 08:15 12/15/24 10:00 Fentanyl 2,500 Mcg/Ns 250 Ml IV CONT 200 mcg/hr .[id number] SANTIAGO 20 mls/hr Titration Protocol 200 MCG/HR Levalbuterol HCl 0.63 mg 12/11/24 09:00 Levalbuterol Neb 1.25 Mg/3 Ml INHALATION Q6HRT PRN Dryness Lorazepam 2 mg 12/11/24 04:19 12/12/24 01:57 Lorazepam Inj (*Crx) 2 Mg/Ml Vial IV PUSH 2 mg Q4H PRN Administration CIWA >8 Metoprolol Tartrate 5 mg 12/12/24 01:00 12/12/24 08:41 Metoprolol Tartrate Inj 5 Mg/5 Ml Vial IV PUSH 5 mg Q4H SANTIAGO Administration Metoprolol Tartrate 25 mg 12/13/24 21:00 12/15/24 08:29 Metoprolol Tartrate 25 Mg Tablet PO 25 mg Q12HR SANTIAGO Administration Multi-Ingred Cream/Lotion/Oil/Oint 1 applic 12/12/24 21:00 12/15/24 08:31 Mineral Oil/White Petrolatum Ointment EACH EYE 1 applic Q12HR SANTIAGO Administration Ondansetron HCl 4 mg 12/11/24 04:19 Ondansetron Inj 4 Mg/2 Ml Vial IV PUSH Q6H PRN Nausea And Vomiting Oseltamivir Phosphate 75 mg 12/12/24 21:00 12/15/24 08:30 Oseltamivir Phosphate Oral Susp 75 Mg/12.5 Ml Syringe PO 12/17/24 20:59 75 mg Q12HR SANTIAGO Administration Pantoprazole Sodium 40 mg 12/13/24 09:00 12/15/24 08:29 Pantoprazole Sodium Iv 40 Mg Vial IV PUSH 40 mg QAM SANTIAGO Administration Sodium Chloride 20 ml 12/12/24 11:00 Central Line Flush IV PUSH PRN PRN after blood draws Sodium Chloride 10 ml 12/12/24 11:00 Central Line Flush IV PUSH PRN PRN with TPN bag changes Sodium Chloride 10 ml 12/13/24 14:00 12/15/24 06:00 Central Line Flush IV PUSH 10 ml Q8HR SANTIAGO Administration Sodium Chloride 20 ml 12/13/24 12:24 Central Line Flush IV PUSH PRN PRN after blood draws Thiamine HCl 100 mg 12/11/24 09:00 12/15/24 08:29 Thiamine Hcl 200 Mg/2 Ml Vial IV PUSH 100 mg QAM SANTIAGO Administration Radiology Results: ITS Impressions Chest CTA 12/10/24 19:15 IMPRESSION: No pulmonary embolism. No aortic dissection. Multifocal pneumonia. Abdomen X-Ray 12/12/24 10:23 IMPRESSION: 1. Nasogastric tube tip in the stomach. Chest X-Ray 12/15/24 10:54 IMPRESSION: Findings suggesting multifocal pneumonia. Supportive lines and tubes in good position. Labs Labs: Laboratory Results - last 24 hr 01/19/25 01/19/25 01/19/25 00:27 05:34 05:58 WBC 8.2 RBC 2.99 L Hgb 10.1 L Hct 31.6 L MCV 105.7 H MCH 33.8 MCHC 32.0 RDW 14.8 H Plt Count 301 MPV 10.2 Immature Gran % (Auto) 1.5 H Neut % (Auto) 76.5 H Lymph % (Auto) 9.2 L [place] % (Auto) 10.8 H Eos % (Auto) 1.8 Baso % (Auto) 0.2 Lymph # (Auto) 0.75 L [place] # (Auto) 0.9 H Eos # (Auto) 0.2 Baso # (Auto) 0.0 Abs Immat Gran (auto) 0.12 H Absolute Neuts (auto) 6.2 Absolute Nucleated RBC 0.000 Nucleated RBC % 0.0 Platelet Estimate Adequate Macrocytosis 1+ Schistocytes None seen Puncture Site Right radial ABG pH 7.348 L ABG pCO2 49.0 H ABG pO2 69.9 L ABG PO2/FiO2 Ratio 2.33 ABG HCO3 26.3 H ABG O2 Saturation 93.1 L ABG O2 Content 14.3 L ABG Base Excess 0.3 A-a Gradient 86.4 Oxyhemoglobin 92.4 Carboxyhemoglobin 0.8 Methemoglobin 0.2 Reduced Hemoglobin 6.6 H Total Hemoglobin 11.0 L O2 Delivery Device Ventilator O2 Liters/Min Not Reportable Minute Volume Not Reportable Vent Rate 20 Vent Mode Cmv FiO2 30 Tidal Volume 480 PEEP 8 Peak Inspir Pressure Not Reportable Pressure Support Not Reportable Sodium 147 H Potassium 4.3 Chloride 117 H Carbon Dioxide 28 Anion Gap 2 L BUN 30 H Creatinine 1.04 Estim Creat Clear Calc 68 Estimated GFR > 60 Glucose 110 POC Capillary Glucose 102 Calcium 7.9 L Phosphorus 3.9 Magnesium 2.1 Total Bilirubin 0.6 AST 29 ALT 24 Alkaline Phosphatase 66 Total Protein 6.0 L Albumin 2.6 L 12/15/24 11:39 WBC RBC Hgb Hct MCV MCH MCHC RDW Plt Count MPV Immature Gran % (Auto) Neut % (Auto) Lymph % (Auto) [place] % (Auto) Eos % (Auto) Baso % (Auto) Lymph # (Auto) [place] # (Auto) Eos # (Auto) Baso # (Auto) Abs Immat Gran (auto) Absolute Neuts (auto) Absolute Nucleated RBC Nucleated RBC % Platelet Estimate Macrocytosis Schistocytes Puncture Site ABG pH ABG pCO2 ABG pO2 ABG PO2/FiO2 Ratio ABG HCO3 ABG O2 Saturation ABG O2 Content ABG Base Excess A-a Gradient Oxyhemoglobin Carboxyhemoglobin Methemoglobin Reduced Hemoglobin Total Hemoglobin O2 Delivery Device O2 Liters/Min Minute Volume Vent Rate Vent Mode FiO2 Tidal Volume PEEP Peak Inspir Pressure Pressure Support Sodium Potassium Chloride Carbon Dioxide Anion Gap BUN Creatinine Estim Creat Clear Calc Estimated GFR Glucose POC Capillary Glucose 94 Calcium Phosphorus Magnesium Total Bilirubin AST ALT Alkaline Phosphatase Total Protein Albumin Quality VTE Prophylaxis VTE prophylaxis: pharmacologic ordered
[2024-12-15 12:43] LABS: Vancomycin Trough 25.9 ug/mL (10.0-20.0)
--- NOTE | 2024-12-15 16:57 | PM.IMPN ---
Progress Note: A&P Assessment and Plan (1) Acute respiratory failure: Code(s): J96.00 - Acute respiratory failure, unspecified whether with hypoxia or hypercapnia Status: Acute Assessment and Plan: 12/12: Acute respiratory failure/impending respiratory failure likely related to altered mentation secondary to alcohol withdrawal, respiratory distress due to pneumonia and influenza A, COPD/emphysema -12/12: Intubated in the ICU -currently on CMV mode of ventilation, peep of 8 and 30% FiO2, -chest x-ray this morning shows stable diffuse lung disease consistent with pneumonia -continue bronchodilators given history of COPD -Sedated with propofol and fentanyl infusion, maintain RASS of 0 to -2, daily SBT and SAT -12/15: Will obtain CT scan of the chest without contrast to evaluate architecture of the lungs (2) Multifocal pneumonia: Code(s): J18.9 - Pneumonia, unspecified organism Status: Acute Assessment and Plan: 12/10: CT chest PE protocol was negative for PE, but showed bilateral multifocal pneumonia -chest x-ray also showed bilateral multifocal pneumonia -continue cefepime doxycycline, vancomycin (12/12) 12/10: Blood cultures negative x2 12/12: Sputum cultures are negative 12/12: Nasal MRSA not detected (3) COPD with emphysema: Code(s): J43.9 - Emphysema, unspecified Status: Acute Assessment and Plan: History of COPD/emphysema -currently on mechanical ventilation, continue bronchodilators (4) SVT (supraventricular tachycardia): Code(s): I47.10 - Supraventricular tachycardia, unspecified Status: Acute Assessment and Plan: Patient went into SVT on admission, appreciate cardiology evaluation and recommendation likely related to respiratory distress from pneumonia, influenza, alcohol withdrawal. -patient was started on metoprolol per tube by cardiology (12/13) -currently in sinus rhythm, rate controlled, patient does have intermittent SVTs which is short-lived (5) Alcohol withdrawal: Code(s): F10.939 - Alcohol use, unspecified with withdrawal, unspecified Status: Acute Assessment and Plan: Patient does have a history of significant alcohol use -in the IMU he had elevated CIWA score and received multiple doses of Ativan -12/12: when I evaluated the patient he was confused, tremulous, and was in alcohol withdrawal -currently intubated and sedated (6) Tobacco dependence: Code(s): F17.200 - Nicotine dependence, unspecified, uncomplicated Status: Acute Assessment and Plan: Will certified rehabilitation counselor patient on cessation of tobacco use once he is off the ventilator (7) Electrolyte abnormality: Code(s): E87.8 - Other disorders of electrolyte and fluid balance, not elsewhere classified Status: Acute Assessment and Plan: Will replace electrolytes as needed Plan 61-year-old male presented to emergency department with shortness of breath is found to have a multifocal pneumonia and influenza A with a past medical history of emphysema and COPD patient went into respiratory distress suspect most likely secondary to alcohol withdrawal and patient was intubated currently patient in ICU on ventilator, for pneumonia patient has been treated cefepime, doxycycline and vancomycin, patient clinical symptoms remains patient is seen by cake stripper and appreciate. Subjective Date/time seen: 12/15/24 16:57 Interval history: 61-year-old male presented to emergency department with shortness of breath is found to have a multifocal pneumonia and influenza A with a past medical history of emphysema and COPD patient went into respiratory distress suspect most likely secondary to alcohol withdrawal and patient was intubated currently patient in ICU on ventilator, for pneumonia patient has been treated cefepime, doxycycline and vancomycin, patient clinical symptoms remains patient is seen by cake stripper and appreciate. Review of Systems Review of Systems: ROS unobtainable: Yes unobtainable due to endotracheal tube Exam Narrative: Patient is comfortable, NAD HEENT: ET tube in place LUNGS: Bilateral fair entry with rhonchi HEART: RR S1S2 ABD: BS+, Soft and nontender Lower extremities: no edema SKIN: nonjaundiced Neuro: grossly intact. Objective Data Vital Signs Vital Signs: Vital Signs - 24 hr 12/14/24 17:07 12/14/24 17:07 12/14/24 17:19 Temperature Pulse Rate 74 74 68 Respiratory Rate 24 H 24 H Blood Pressure Pulse Oximetry 94 Oxygen Delivery Mechanical Ventilation Fraction of Inspired Oxygen 30 12/14/24 18:00 12/14/24 18:00 12/14/24 18:00 Temperature Pulse Rate 77 77 77 Respiratory Rate 21 H 21 H 21 H Blood Pressure 106/66 Pulse Oximetry 95 Oxygen Delivery Fraction of Inspired Oxygen 12/14/24 18:00 12/14/24 20:00 12/14/24 20:00 Temperature Pulse Rate 81 79 79 Respiratory Rate 21 H 21 H Blood Pressure Pulse Oximetry Oxygen Delivery Fraction of Inspired Oxygen 12/14/24 20:00 12/14/24 20:00 12/14/24 20:00 Temperature 37.3 C Pulse Rate 79 Respiratory Rate 22 H Blood Pressure 108/69 Pulse Oximetry 95 Oxygen Delivery Mechanical Ventilation Fraction of Inspired Oxygen 30 30 12/14/24 20:00 12/14/24 21:45 12/14/24 21:47 Temperature Pulse Rate 80 79 89 Respiratory Rate 23 H 21 H Blood Pressure Pulse Oximetry 96 Oxygen Delivery Fraction of Inspired Oxygen 12/14/24 21:47 12/14/24 21:55 12/14/24 21:55 Temperature Pulse Rate 89 83 81 Respiratory Rate 21 H 20 Blood Pressure Pulse Oximetry 100 Oxygen Delivery Mechanical Ventilation Fraction of Inspired Oxygen 30 12/14/24 22:00 12/14/24 22:00 12/14/24 22:00 Temperature Pulse Rate 80 83 83 Respiratory Rate 22 H 23 H 23 H Blood Pressure 120/78 Pulse Oximetry 96 Oxygen Delivery Fraction of Inspired Oxygen 12/14/24 22:00 12/14/24 22:05 12/14/24 22:39 Temperature Pulse Rate 80 81 98 Respiratory Rate 20 Blood Pressure Pulse Oximetry Oxygen Delivery Fraction of Inspired Oxygen 12/14/24 23:35 12/15/24 00:00 12/15/24 00:00 Temperature Pulse Rate 75 Respiratory Rate Blood Pressure Pulse Oximetry 96 Oxygen Delivery Mechanical Ventilation Mechanical Ventilation Fraction of Inspired Oxygen 30 30 30 12/15/24 00:00 12/15/24 00:00 12/15/24 00:00 Temperature 37.2 C Pulse Rate 80 80 76 Respiratory Rate 22 H 22 H 20 Blood Pressure 112/68 Pulse Oximetry 92 Oxygen Delivery Fraction of Inspired Oxygen 12/15/24 00:00 12/15/24 02:00 12/15/24 02:00 Temperature Pulse Rate 77 77 77 Respiratory Rate 21 H 21 H Blood Pressure Pulse Oximetry Oxygen Delivery Fraction of Inspired Oxygen 12/15/24 02:00 12/15/24 02:00 12/15/24 02:21 Temperature Pulse Rate 79 79 79 Respiratory Rate 20 20 Blood Pressure 116/69 Pulse Oximetry 97 Oxygen Delivery Fraction of Inspired Oxygen 12/15/24 02:21 12/15/24 02:22 12/15/24 02:22 Temperature Pulse Rate 79 80 80 Respiratory Rate 20 20 20 Blood Pressure Pulse Oximetry Oxygen Delivery Fraction of Inspired Oxygen 12/15/24 02:44 12/15/24 02:46 12/15/24 02:51 Temperature Pulse Rate 72 77 78 Respiratory Rate 20 20 Blood Pressure Pulse Oximetry 93 Oxygen Delivery Mechanical Ventilation Fraction of Inspired Oxygen 30 12/15/24 04:00 12/15/24 04:00 12/15/24 04:00 Temperature Pulse Rate 76 76 Respiratory Rate 20 20 Blood Pressure Pulse Oximetry Oxygen Delivery Mechanical Ventilation Fraction of Inspired Oxygen 30 12/15/24 04:00 12/15/24 04:00 12/15/24 04:00 Temperature 37.2 C Pulse Rate 77 79 Respiratory Rate 20 Blood Pressure 104/65 Pulse Oximetry 96 Oxygen Delivery Fraction of Inspired Oxygen 30 12/15/24 05:45 12/15/24 06:00 12/15/24 06:00 Temperature Pulse Rate 74 76 76 Respiratory Rate 20 20 Blood Pressure Pulse Oximetry 94 Oxygen Delivery Mechanical Ventilation Fraction of Inspired Oxygen 30 12/15/24 06:00 12/15/24 06:00 12/15/24 07:14 Temperature Pulse Rate 78 78 78 Respiratory Rate 20 25 H Blood Pressure 132/79 Pulse Oximetry 96 Oxygen Delivery Fraction of Inspired Oxygen 12/15/24 07:14 12/15/24 08:00 12/15/24 08:00 Temperature 36.6 C Pulse Rate 78 81 Respiratory Rate 25 H 21 H Blood Pressure 122/73 Pulse Oximetry 96 Oxygen Delivery Fraction of Inspired Oxygen 35 12/15/24 08:00 12/15/24 08:00 12/15/24 08:00 Temperature Pulse Rate 81 81 Respiratory Rate 21 H Blood Pressure Pulse Oximetry Oxygen Delivery Mechanical Ventilation Fraction of Inspired Oxygen 35 12/15/24 08:00 12/15/24 10:00 12/15/24 10:00 Temperature Pulse Rate 81 70 69 Respiratory Rate 21 H 20 Blood Pressure 104/68 Pulse Oximetry 97 Oxygen Delivery Fraction of Inspired Oxygen 12/15/24 10:00 12/15/24 10:00 12/15/24 11:34 Temperature Pulse Rate 69 69 73 Respiratory Rate 20 20 19 Blood Pressure Pulse Oximetry Oxygen Delivery Fraction of Inspired Oxygen 12/15/24 11:34 12/15/24 11:43 12/15/24 12:00 Temperature 36.9 C Pulse Rate 73 80 75 Respiratory Rate 19 20 Blood Pressure 115/74 Pulse Oximetry 96 95 Oxygen Delivery Mechanical Ventilation Fraction of Inspired Oxygen 30 12/15/24 12:00 12/15/24 12:00 12/15/24 12:00 Temperature Pulse Rate 75 Respiratory Rate Blood Pressure Pulse Oximetry Oxygen Delivery Mechanical Ventilation Fraction of Inspired Oxygen 35 35 12/15/24 12:00 12/15/24 12:00 12/15/24 14:00 Temperature Pulse Rate 75 75 74 Respiratory Rate 20 20 Blood Pressure Pulse Oximetry Oxygen Delivery Fraction of Inspired Oxygen 12/15/24 14:00 12/15/24 14:00 12/15/24 14:15 Temperature Pulse Rate 75 75 76 Respiratory Rate 21 H 21 H Blood Pressure 116/75 Pulse Oximetry 95 94 Oxygen Delivery Mechanical Ventilation Fraction of Inspired Oxygen 30 12/15/24 14:59 12/15/24 15:47 12/15/24 15:47 Temperature Pulse Rate 75 77 77 Respiratory Rate 21 H 20 20 Blood Pressure Pulse Oximetry Oxygen Delivery Fraction of Inspired Oxygen 12/15/24 16:02 12/15/24 16:02 Temperature Pulse Rate 78 78 Respiratory Rate 20 20 Blood Pressure Pulse Oximetry Oxygen Delivery Fraction of Inspired Oxygen Intake/Output Intake/Output: Intake & Output 12/12/24 12/13/24 12/14/24 12/15/24 23:59 23:59 23:59 23:59 Intake Total 2515.1 2657.8 2930.4 2692.4 Output Total 2500 1538 443 4556 Balance 15.1 1582.8 2105.4 667.4 Meds/Results Medications: Active Medications Generic Name Dose Route Start Last Admin Trade Name Freq PRN Reason Stop Dose Admin Acetaminophen 650 mg 12/11/24 07:58 Acetaminophen 325 Mg Tablet PO Q4H PRN Mild Pain (1-3) or Fever Albuterol 2 puff 12/11/24 00:26 Albuterol Sulfate (*Sp) Aerosol 1 Puff INHALATION QIDRT PRN shortness of breath or wheezing Albuterol/Ipratropium 3 ml 12/11/24 02:00 12/15/24 02:44 Ipratropium 0.5 Mg/Albuterol Sulfate 2.5 Mg Ampul.Neb 3 Ml INHALATION 3 ml Q6HRT SANTIAGO Administration Amlodipine Besylate 10 mg 12/11/24 09:00 12/12/24 08:39 Amlodipine Besylate 10 Mg Tablet PO Not Given DAILY SANTIAGO Chlordiazepoxide HCl 50 mg 12/11/24 06:00 12/11/24 05:04 Chlordiazepoxide (*Crx) 25 Mg Capsule PO 50 mg Q6HR SANTIAGO Administration Dextrose 12.5 gm 12/11/24 11:48 Dextrose 50% 25 Gm/50 Ml Syringe IV PUSH PRN PRN Hypoglycemia Protocol Enoxaparin Sodium 40 mg 12/13/24 09:00 12/15/24 08:30 Enoxaparin 40 Mg/0.4 Ml Syringe SUB-Q 40 mg DAILY SANTIAGO Administration Fentanyl Citrate 50 mcg 12/12/24 23:31 12/13/24 18:12 Fentanyl Citrate Inj (*Crx) 100 Mcg/2 Ml Vial IV PUSH 50 mcg Q2H PRN Administration AGITATION WHILE ON VENT Folic Acid 1 mg 12/11/24 09:00 12/15/24 08:30 Folic Acid 1 Mg/0.2 Ml Inj IV PUSH 1 mg QAM SANTIAGO Administration Glucagon 1 mg 12/11/24 11:48 Glucagon For Inj 1 Mg Vial IM PRN PRN Hypoglycemia Protocol Glucose 15 gm 12/11/24 11:48 Glucose Oral Gel 15 Gm Of Glucse In 37.5 Gm Tube PO PRN PRN Hypoglycemia Protocol Cefepime HCl 2 gm in 50 mls @ 100 mls/hr 12/11/24 09:00 12/15/24 08:29 Maxipime 2 Gm/Ns 50 Ml IVPB 100 mls/hr Q8H SANTIAGO Administration Dextrose 1,000 mls @ 100 mls/hr 12/11/24 11:48 Dextrose 5% 1,000 Ml IVPB PRN PRN Hypoglycemia Protocol Propofol 100 mls @ 21.45 mls/hr 12/12/24 09:55 12/15/24 16:02 Diprivan IV CONT 50 mcg/kg/min .Q4H40M SANTIAGO 21.45 mls/hr Administration Protocol 50 MCG/KG/MIN Doxycycline Hyclate 100 mg in 100 mls @ 100 mls/hr 12/12/24 11:00 12/15/24 11:21 Vibramycin 100 Mg/Ns 100 Ml IVPB 100 mls/hr Q12H SANTIAGO Administration Fentanyl Citrate 2,500 mcg in 250 mls @ 20 mls/hr 12/13/24 08:15 12/15/24 15:47 Fentanyl 2,500 Mcg/Ns 250 Ml IV CONT 200 mcg/hr .[id number] SANTIAGO 20 mls/hr Administration Protocol 200 MCG/HR Vancomycin HCl 1,500 mg in 500 mls @ 250 mls/hr 12/16/24 01:00 Vancomycin 1,500 Mg/Ns 500 Ml IVPB Q24H SANTIAGO Levalbuterol HCl 0.63 mg 12/11/24 09:00 Levalbuterol Neb 1.25 Mg/3 Ml INHALATION Q6HRT PRN Dryness Lorazepam 2 mg 12/11/24 04:19 12/12/24 01:57 Lorazepam Inj (*Crx) 2 Mg/Ml Vial IV PUSH 2 mg Q4H PRN Administration CIWA >8 Metoprolol Tartrate 5 mg 12/12/24 01:00 12/12/24 08:41 Metoprolol Tartrate Inj 5 Mg/5 Ml Vial IV PUSH 5 mg Q4H SANTIAGO Administration Metoprolol Tartrate 25 mg 12/13/24 21:00 12/15/24 08:29 Metoprolol Tartrate 25 Mg Tablet PO 25 mg Q12HR SANTIAGO Administration Multi-Ingred Cream/Lotion/Oil/Oint 1 applic 12/12/24 21:00 12/15/24 08:31 Mineral Oil/White Petrolatum Ointment EACH EYE 1 applic Q12HR SANTIAGO Administration Ondansetron HCl 4 mg 12/11/24 04:19 Ondansetron Inj 4 Mg/2 Ml Vial IV PUSH Q6H PRN Nausea And Vomiting Oseltamivir Phosphate 75 mg 12/12/24 21:00 12/15/24 08:30 Oseltamivir Phosphate Oral Susp 75 Mg/12.5 Ml Syringe PO 12/17/24 20:59 75 mg Q12HR SANTIAGO Administration Pantoprazole Sodium 40 mg 12/13/24 09:00 12/15/24 08:29 Pantoprazole Sodium Iv 40 Mg Vial IV PUSH 40 mg QAM SANTIAGO Administration Sodium Chloride 20 ml 12/12/24 11:00 Central Line Flush IV PUSH PRN PRN after blood draws Sodium Chloride 10 ml 12/12/24 11:00 Central Line Flush IV PUSH PRN PRN with TPN bag changes Sodium Chloride 10 ml 12/13/24 14:00 12/15/24 15:48 Central Line Flush IV PUSH 10 ml Q8HR SANTIAGO Administration Sodium Chloride 20 ml 12/13/24 12:24 Central Line Flush IV PUSH PRN PRN after blood draws Thiamine HCl 100 mg 12/11/24 09:00 12/15/24 08:29 Thiamine Hcl 200 Mg/2 Ml Vial IV PUSH 100 mg QAM SANTIAGO Administration Radiology Results: ITS Impressions Chest CTA 12/10/24 19:15 IMPRESSION: No pulmonary embolism. No aortic dissection. Multifocal pneumonia. Abdomen X-Ray 12/12/24 10:23 IMPRESSION: 1. Nasogastric tube tip in the stomach. Chest X-Ray 12/15/24 10:54 IMPRESSION: Findings suggesting multifocal pneumonia. Supportive lines and tubes in good position. Chest CT 12/15/24 16:37 IMPRESSION: Endotracheal tube, left IJ central venous line, NG tube, all in good position. Pulmonary opacities likely representing worsening atypical/viral infection. Small cavitary lesions noted in the right upper lobe. A component of aspiration could be considered given the presence of airway secretions/debris. Trace bilateral pleural effusions. Ascending aortic ectasia. Labs Labs: Laboratory Results - last 24 hr 12/15/24 12/15/24 12/15/24 00:27 05:34 05:58 WBC 8.2 RBC 2.99 L Hgb 10.1 L Hct 31.6 L MCV 105.7 H MCH 33.8 MCHC 32.0 RDW 14.8 H Plt Count 301 MPV 10.2 Immature Gran % (Auto) 1.5 H Neut % (Auto) 76.5 H Lymph % (Auto) 9.2 L [place] % (Auto) 10.8 H Eos % (Auto) 1.8 Baso % (Auto) 0.2 Lymph # (Auto) 0.75 L [place] # (Auto) 0.9 H Eos # (Auto) 0.2 Baso # (Auto) 0.0 Abs Immat Gran (auto) 0.12 H Absolute Neuts (auto) 6.2 Absolute Nucleated RBC 0.000 Nucleated RBC % 0.0 Platelet Estimate Adequate Macrocytosis 1+ Schistocytes None seen Puncture Site Right radial ABG pH 7.348 L ABG pCO2 49.0 H ABG pO2 69.9 L ABG PO2/FiO2 Ratio 2.33 ABG HCO3 26.3 H ABG O2 Saturation 93.1 L ABG O2 Content 14.3 L ABG Base Excess 0.3 A-a Gradient 86.4 Oxyhemoglobin 92.4 Carboxyhemoglobin 0.8 Methemoglobin 0.2 Reduced Hemoglobin 6.6 H Total Hemoglobin 11.0 L O2 Delivery Device Ventilator O2 Liters/Min Not Reportable Minute Volume Not Reportable Vent Rate 20 Vent Mode Cmv FiO2 30 Tidal Volume 480 PEEP 8 Peak Inspir Pressure Not Reportable Pressure Support Not Reportable Sodium 147 H Potassium 4.3 Chloride 117 H Carbon Dioxide 28 Anion Gap 2 L BUN 30 H Creatinine 1.04 Estim Creat Clear Calc 68 Estimated GFR > 60 Glucose 110 POC Capillary Glucose 102 Calcium 7.9 L Phosphorus 3.9 Magnesium 2.1 Total Bilirubin 0.6 AST 29 ALT 24 Alkaline Phosphatase 66 Total Protein 6.0 L Albumin 2.6 L Vancomycin Trough 12/15/24 12/15/24 11:39 12:16 WBC RBC Hgb Hct MCV MCH MCHC RDW Plt Count MPV Immature Gran % (Auto) Neut % (Auto) Lymph % (Auto) [place] % (Auto) Eos % (Auto) Baso % (Auto) Lymph # (Auto) [place] # (Auto) Eos # (Auto) Baso # (Auto) Abs Immat Gran (auto) Absolute Neuts (auto) Absolute Nucleated RBC Nucleated RBC % Platelet Estimate Macrocytosis Schistocytes Puncture Site ABG pH ABG pCO2 ABG pO2 ABG PO2/FiO2 Ratio ABG HCO3 ABG O2 Saturation ABG O2 Content ABG Base Excess A-a Gradient Oxyhemoglobin Carboxyhemoglobin Methemoglobin Reduced Hemoglobin Total Hemoglobin O2 Delivery Device O2 Liters/Min Minute Volume Vent Rate Vent Mode FiO2 Tidal Volume PEEP Peak Inspir Pressure Pressure Support Sodium Potassium Chloride Carbon Dioxide Anion Gap BUN Creatinine Estim Creat Clear Calc Estimated GFR Glucose POC Capillary Glucose 94 Calcium Phosphorus Magnesium Total Bilirubin AST ALT Alkaline Phosphatase Total Protein Albumin Vancomycin Trough 25.9 H
[2024-12-15 18:11] LABS: Glucose Point of Care 99 mg/dl (65-105)
[2024-12-16] VITALS (37 sets, daily range): BP systolic 103–158; BP diastolic 65–91; PULSE 58–90; RESP 18–23; TEMP 36.2–37.1; O2SAT 93–100
[2024-12-16] MEDS: VANCOMYCIN 1,500 MG/NS 500 ML 1,500 MG/500 ML BAG 250 MG IVPB
[2024-12-16] MEDS: CEFEPIME 2 GM/NS 50 ML 2 GM/50 ML BAG IVPB ×2 (00:54→08:59)
[2024-12-16] MEDS: PROPOFOL IV EMULSION 100 ML 21.45 MG IV CONT ×6 (01:27→22:43)
[2024-12-16 01:37] LABS: Glucose Point of Care 98 mg/dl (65-105)
[2024-12-16] MEDS: IPRATROPIUM 0.5 MG/ALBUTEROL SULFATE 2.5 MG AMPUL.NEB 3 ML INHALATION ×4 (02:03→20:04)
[2024-12-16 04:34] LABS: Basophils Percent Auto 0.2 % (0.2-1.2); Eosinophils Absolute Auto 0.2 K/mm3 (0-0.3); Eosinophils Percent Auto 2.6 % (0-4.4); Hematocrit 29.7 % (42.0-52.0); Hemoglobin 9.5 g/dL (14.0-18.0); Immature Granulocyte Absolute 0.09 K/mm3 (0.00-0.031); Immature Granulocyte Percent A 1.4 % (0-0.5); Lymphocytes Absolute Auto 0.94 K/mm3 (0.9-3.2); Lymphocytes Percent Auto 14.5 % (18.3-44.2); Mean Corpuscular Hemoglobin 33.5 pg (26-34); Mean Corpuscular Volume 104.6 fl (80-100); Mean Platelet Volume 10.5 fl (7.4-10.4); Monocytes Absolute Auto 0.7 K/mm3 (0.1-0.6); Neutrophils Absolute Auto 4.6 K/mm3 (1.3-6.7); Neutrophils Percent Auto 71.3 % (45.5-73.1); Platelet Count Result 291 k/mm3 (150-375); Red Blood Count 2.84 M/mm3 (4.6-6.20); Red Cell Distribution Width 14.9 % (11.5-14.5); White Blood Count 6.5 K/mm3 (4.5-10.0)
[2024-12-16] MEDS: FENTANYL 2,500MCG/NS250ML(*CRX 2,500 MCG/250 ML BAG 20 MCG IV CONT ×2 (04:43→17:54)
[2024-12-16 04:52] LABS: Alanine Aminotransferase 22 U/L (6-50); Albumin Level 2.4 g/dL (3.5-5.1); Alkaline Phosphatase 63 U/L (38-126); Anion Gap 3 mmol/L (4-12); Aspartate Amino Transferase 30 U/L (17-59); Bilirubin,Total 0.5 mg/dL (0.2-1.3); Blood Urea Nitrogen 38 mg/dL (9-20); Calcium 7.9 mg/dL (8.4-10.2); Carbon Dioxide 30 mmol/L (22-30); Chloride 114 mmol/L (98-107); Estimated CRCL calculation 55 ml/min; Estimated Glomerular Filt Rate 56; Glucose 108 mg/dL (65-110); Magnesium 1.8 mg/dL (1.6-2.3); Phosphorus 3.8 mg/dL (2.5-4.5); Sodium 147 mmol/L (137-145)
[2024-12-16 05:16] LABS: Alveolar/Arterial O2 Gradient 85.6 mmHg; Base Excess ABG -1.7 mEq/l (+/-2.0); Carboxyhemoglobin 0.9 % THb (0-2.0); Fractional Inspired Oxygen 30 %; HCO3 ABG 24.1 mEq/l (22.0-26.0); Methemoglobin ABG 0.1 %THb (0-1.5); Oxygen Content ABG 15.2 %vol (16.0-22.0); Oxygen Saturation ABG 94.4 % (95.0-100.0); Oxyhemoglobin 93.9 % THb (90.0-100.0); PCO2 ABG 45.1 mmHg (35.0-45.0); PO2 ABG 75.3 mmHg (80.0-100.0); PO2 FiO2 Ratio Arterial Blood 2.51 %; Reduced Hemoglobin 5.1 %THb (0-5.0); Total Hemoglobin 11.5 g/dL (12.0-18.0); pH ABG 7.345 (7.350-7.450)
[2024-12-16] MEDS: CENTRAL LINE FLUSH 10 ML IV PUSH ×3 (05:23→22:30)
[2024-12-16 05:43] LABS: Arterial Blood Gas PEEP 8 cmH2O; Arterial Blood Gas Vent Mode CMV; Arterial Blood Gas Ventilator rate 20 /MIN; Device VENTILATOR; Modified Allen's Test Unable to perform; Site Drawn RIGHT RADIAL
[2024-12-16 05:44] LABS: Arterial Blood Gas Tidal Volume 480 ml
[2024-12-16 08:53] LABS: Triglycerides 217 mg/dL (<150)
[2024-12-16] MEDS: THIAMINE HCL 200 MG/2 ML VIAL 100 MG IV PUSH (08:58)
[2024-12-16] MEDS: PANTOPRAZOLE SODIUM IV 40 MG VIAL IV PUSH (08:58)
[2024-12-16] MEDS: ENOXAPARIN 40 MG/0.4 ML SYRINGE SUB-Q (08:59)
[2024-12-16] MEDS: FOLIC ACID 1 MG/0.2 ML INJ IV PUSH (08:59)
[2024-12-16] MEDS: OSELTAMIVIR PHOSPHATE ORAL SUSP 75 MG/12.5 ML SYRINGE PO ×2 (08:59→20:28)
[2024-12-16] MEDS: METOPROLOL TARTRATE 25 MG TABLET PO ×2 (08:59→20:26)
--- NOTE | 2024-12-16 09:11 | WPDINTPN ---
Progress Note: A&P Assessment and Plan (1) Acute respiratory failure: Code(s): J96.00 - Acute respiratory failure, unspecified whether with hypoxia or hypercapnia Status: Acute Assessment and Plan: 12/12: Acute respiratory failure/impending respiratory failure likely related to altered mentation secondary to alcohol withdrawal, respiratory distress due to pneumonia and influenza A, COPD/emphysema -12/12: Intubated in the ICU -currently on CMV mode of ventilation, peep of 8 and 30% FiO2, -continue bronchodilators given history of COPD -Sedated with propofol and fentanyl infusion, maintain RASS of 0 to -2, daily SBT and SAT -12/15: chest x-rays have not been improving so opted to obtain chest CT which is as under -12/16: Consulted pulmonology for bronchoscopy, discussed with Dr. Flynn, who will evaluate the patient and perform bronchoscopy sometime today -12/15: Repeat CT chest: IMPRESSION: Endotracheal tube, left IJ central venous line, NG tube, all in good position. Pulmonary opacities likely representing worsening atypical/viral infection. Small cavitary lesions noted in the right upper lobe. A component of aspiration could be considered given the presence of airway secretions/debris. Trace bilateral pleural effusions. Ascending aortic ectasia (2) Multifocal pneumonia: Code(s): J18.9 - Pneumonia, unspecified organism Status: Acute Assessment and Plan: 12/10: CT chest PE protocol was negative for PE, but showed bilateral multifocal pneumonia -chest x-ray also showed bilateral multifocal pneumonia -continue cefepime doxycycline, vancomycin (12/12) 12/10: Blood cultures negative x2 12/12: Sputum cultures are negative 12/12: Nasal MRSA not detected -given no improvement, will discuss with pulmonology and ID pharmacy regarding starting and anaerobic coverage (3) COPD with emphysema: Code(s): J43.9 - Emphysema, unspecified Status: Acute Assessment and Plan: History of COPD/emphysema -currently on mechanical ventilation, continue bronchodilators (4) SVT (supraventricular tachycardia): Code(s): I47.10 - Supraventricular tachycardia, unspecified Status: Acute Assessment and Plan: Patient went into SVT on admission, appreciate cardiology evaluation and recommendation likely related to respiratory distress from pneumonia, influenza, alcohol withdrawal. -patient was started on metoprolol per tube by cardiology (12/13) -currently in sinus rhythm, rate controlled, patient does have intermittent SVTs which is short-lived (5) Alcohol withdrawal: Code(s): F10.939 - Alcohol use, unspecified with withdrawal, unspecified Status: Acute Assessment and Plan: Patient does have a history of significant alcohol use -in the IMU he had elevated CIWA score and received multiple doses of Ativan -12/12: when I evaluated the patient he was confused, tremulous, and was in alcohol withdrawal -currently intubated and sedated (6) Tobacco dependence: Code(s): F17.200 - Nicotine dependence, unspecified, uncomplicated Status: Acute Assessment and Plan: Will automobile travel [employer] counselor patient on cessation of tobacco use once he is off the ventilator (7) Electrolyte abnormality: Code(s): E87.8 - Other disorders of electrolyte and fluid balance, not elsewhere classified Status: Acute Assessment and Plan: Will replace electrolytes as needed Plan DVT prophylaxis: Lovenox Stress ulcer prophylaxis: Protonix Nutrition: Tolerating tube feeds Code Status: Full code Critical Care Time Spent: 34 minutes Discussed with director of alumni relations 12/13: Discussed with patient's son in rounds and updated with patient's condition and plan of care. I answered all questions Due to a high probability of clinically significant, life threatening deterioration, the patient required my highest level of preparedness to intervene emergently and I personally spent this critical care time directly and personally managing the patient. This critical care time included obtaining a history; examining the patient; pulse oximetry; ordering and review of studies; arranging urgent treatment with development of a management plan; evaluation of patient's response to treatment; frequent reassessment; and discussions with other providers. It was exclusive of separately billable procedures and treating other patients and teaching time. Please see Assessment and Plan section and the rest of the note for further information on patient assessment and treatment This dictation may have been done utilizing a voice recognition system. Attempts have been made to correct errors. However, there may be uncorrected grammatical, spelling, and recognitions errors present. Subjective Date/time seen: 12/16/24 09:11 Interval history: Reason for consult: Acute respiratory failure, pneumonia, influenza a, alcohol withdrawal, supraventricular tachycardia 12/16/2024: Patient seen and examined this morning in the ICU, remains intubated on CMV mode of ventilation, peep of 8, 30% FiO2. Sedated with propofol and fentanyl infusion. Patient does not open his eyes or follow simple commands. Urine output has been adequate, patient is afebrile and hemodynamically stable. Sodium levels remain 147 this morning. Patient did have episodes of SVTs intermittently overnight. Review of Systems Review of Systems: ROS unobtainable: Yes unobtainable due to endotracheal tube, unobtainable due to medical condition and unobtainable due to mental status Exam Narrative: General: Intubated and sedated, in no acute distress HEENT:? Pupils equal and reactive, sclera is clear Neck:? Supple Respiratory:? Coarse breath sounds bilaterally, rales on upper lobes bilaterally, decreased air entry at bases, no wheezing Cardiac:? S1-S2 is normal, regular rate and rhythm Abdomen:? Soft, nontender, nondistended, hypoactive bowel sound Extremities:? No edema, palpable pedal pulses Neuro:? Intubated and sedated, does not answer questions or follow simple commands at this time Skin:? Warm and dry, bruising noted on bilateral upper and lower extremity Psych:? Unable to assess at this time Objective Data Vital Signs Vital Signs: Vital Signs - 24 hr 12/15/24 10:00 12/15/24 10:00 12/15/24 10:00 Temperature Pulse Rate 70 69 69 Respiratory Rate 20 20 Blood Pressure 104/68 Pulse Oximetry 97 Oxygen Delivery Fraction of Inspired Oxygen 12/15/24 10:00 12/15/24 11:34 12/15/24 11:34 Temperature Pulse Rate 69 73 73 Respiratory Rate 20 19 19 Blood Pressure Pulse Oximetry Oxygen Delivery Fraction of Inspired Oxygen 12/15/24 11:43 12/15/24 12:00 12/15/24 12:00 Temperature 98.4 F Pulse Rate 80 75 Respiratory Rate 20 Blood Pressure 115/74 Pulse Oximetry 96 95 Oxygen Delivery Mechanical Ventilation Fraction of Inspired Oxygen 30 35 12/15/24 12:00 12/15/24 12:00 12/15/24 12:00 Temperature Pulse Rate 75 75 Respiratory Rate 20 Blood Pressure Pulse Oximetry Oxygen Delivery Mechanical Ventilation Fraction of Inspired Oxygen 35 12/15/24 12:00 12/15/24 14:00 12/15/24 14:00 Temperature Pulse Rate 75 74 75 Respiratory Rate 20 21 H Blood Pressure 116/75 Pulse Oximetry 95 Oxygen Delivery Fraction of Inspired Oxygen 12/15/24 14:00 12/15/24 14:15 12/15/24 14:59 Temperature Pulse Rate 75 76 75 Respiratory Rate 21 H 21 H Blood Pressure Pulse Oximetry 94 Oxygen Delivery Mechanical Ventilation Fraction of Inspired Oxygen 30 12/15/24 15:47 12/15/24 15:47 12/15/24 16:00 Temperature 98.8 F Pulse Rate 77 77 94 Respiratory Rate 20 20 17 Blood Pressure 136/81 Pulse Oximetry 96 Oxygen Delivery Fraction of Inspired Oxygen 12/15/24 16:00 12/15/24 16:00 12/15/24 16:00 Temperature Pulse Rate 94 Respiratory Rate 17 Blood Pressure Pulse Oximetry Oxygen Delivery Mechanical Ventilation Fraction of Inspired Oxygen 35 35 12/15/24 16:00 12/15/24 16:02 12/15/24 16:02 Temperature Pulse Rate 94 78 78 Respiratory Rate 20 20 Blood Pressure Pulse Oximetry Oxygen Delivery Fraction of Inspired Oxygen 12/15/24 17:03 12/15/24 17:45 12/15/24 18:00 Temperature Pulse Rate 85 94 76 Respiratory Rate 17 Blood Pressure Pulse Oximetry 95 Oxygen Delivery Mechanical Ventilation Fraction of Inspired Oxygen 30 12/15/24 18:00 12/15/24 18:00 12/15/24 18:00 Temperature Pulse Rate 79 79 79 Respiratory Rate 20 20 20 Blood Pressure 115/68 Pulse Oximetry 93 Oxygen Delivery Fraction of Inspired Oxygen 12/15/24 20:00 12/15/24 20:00 12/15/24 20:00 Temperature 98.8 F Pulse Rate 72 71 Respiratory Rate 20 Blood Pressure 115/70 Pulse Oximetry 96 Oxygen Delivery Mechanical Ventilation Fraction of Inspired Oxygen 35 12/15/24 20:00 12/15/24 20:00 12/15/24 20:09 Temperature Pulse Rate 72 74 Respiratory Rate 20 20 Blood Pressure Pulse Oximetry Oxygen Delivery Fraction of Inspired Oxygen 35 12/15/24 20:09 12/15/24 20:16 12/15/24 20:42 Temperature Pulse Rate 71 73 80 Respiratory Rate 20 20 Blood Pressure Pulse Oximetry 97 Oxygen Delivery Mechanical Ventilation Fraction of Inspired Oxygen 30 12/15/24 20:55 12/15/24 20:58 12/15/24 22:00 Temperature Pulse Rate 80 81 62 Respiratory Rate 20 Blood Pressure Pulse Oximetry Oxygen Delivery Fraction of Inspired Oxygen 12/15/24 22:00 12/15/24 22:00 12/15/24 22:00 Temperature Pulse Rate 70 71 71 Respiratory Rate 20 20 20 Blood Pressure 118/75 Pulse Oximetry 96 Oxygen Delivery Fraction of Inspired Oxygen 12/16/24 00:00 12/16/24 00:00 12/16/24 00:00 Temperature Pulse Rate 66 Respiratory Rate Blood Pressure Pulse Oximetry Oxygen Delivery Mechanical Ventilation Fraction of Inspired Oxygen 35 35 12/16/24 00:00 12/16/24 00:00 12/16/24 00:00 Temperature 98.1 F Pulse Rate 62 62 62 Respiratory Rate 20 20 20 Blood Pressure 114/72 Pulse Oximetry Oxygen Delivery Fraction of Inspired Oxygen 12/16/24 01:27 12/16/24 01:27 12/16/24 02:00 Temperature Pulse Rate 60 60 60 Respiratory Rate 20 20 Blood Pressure Pulse Oximetry Oxygen Delivery Fraction of Inspired Oxygen 12/16/24 02:00 12/16/24 02:00 12/16/24 02:00 Temperature Pulse Rate 60 60 60 Respiratory Rate 20 20 20 Blood Pressure 111/70 Pulse Oximetry 95 Oxygen Delivery Fraction of Inspired Oxygen 12/16/24 02:03 12/16/24 02:03 12/16/24 02:18 Temperature Pulse Rate 59 L 60 60 Respiratory Rate 20 20 Blood Pressure Pulse Oximetry 95 Oxygen Delivery Mechanical Ventilation Fraction of Inspired Oxygen 30 12/16/24 04:00 12/16/24 04:00 12/16/24 04:00 Temperature 97.1 F L Pulse Rate 61 61 Respiratory Rate 20 20 Blood Pressure 127/73 Pulse Oximetry 97 Oxygen Delivery Fraction of Inspired Oxygen 30 12/16/24 04:00 12/16/24 04:00 12/16/24 04:00 Temperature Pulse Rate 61 60 Respiratory Rate 20 Blood Pressure Pulse Oximetry Oxygen Delivery Mechanical Ventilation Fraction of Inspired Oxygen 35 12/16/24 04:18 12/16/24 04:43 12/16/24 05:00 Temperature Pulse Rate 80 80 86 Respiratory Rate 20 20 Blood Pressure Pulse Oximetry 97 Oxygen Delivery Mechanical Ventilation Fraction of Inspired Oxygen 30 12/16/24 05:23 12/16/24 05:23 12/16/24 06:00 Temperature Pulse Rate 80 80 90 Respiratory Rate 21 H 21 H Blood Pressure Pulse Oximetry Oxygen Delivery Fraction of Inspired Oxygen 12/16/24 06:00 12/16/24 06:03 12/16/24 06:03 Temperature Pulse Rate 90 90 90 Respiratory Rate 18 18 18 Blood Pressure 158/87 H Pulse Oximetry 98 Oxygen Delivery Fraction of Inspired Oxygen 12/16/24 08:28 12/16/24 08:28 12/16/24 08:37 Temperature Pulse Rate 67 67 67 Respiratory Rate 20 20 Blood Pressure Pulse Oximetry 94 Oxygen Delivery Mechanical Ventilation Fraction of Inspired Oxygen 30 Intake/Output Intake/Output: Intake & Output 12/13/24 12/14/24 12/15/24 12/16/24 23:59 23:59 23:59 23:59 Intake Total 2657.8 2930.4 3988.9 1803.1 Output Total 9260 085 9649 550 Balance 1582.8 2105.4 1713.9 1253.1 Meds/Results Medications: Active Medications Generic Name Dose Route Start Last Admin Trade Name Freq PRN Reason Stop Dose Admin Acetaminophen 650 mg 12/11/24 07:58 Acetaminophen 325 Mg Tablet PO Q4H PRN Mild Pain (1-3) or Fever Albuterol 2 puff 12/11/24 00:26 Albuterol Sulfate (*Sp) Aerosol 1 Puff INHALATION QIDRT PRN shortness of breath or wheezing Albuterol/Ipratropium 3 ml 12/11/24 02:00 12/16/24 08:28 Ipratropium 0.5 Mg/Albuterol Sulfate 2.5 Mg Ampul.Neb 3 Ml INHALATION 3 ml Q6HRT SANTIAGO Administration Amlodipine Besylate 10 mg 12/11/24 09:00 12/12/24 08:39 Amlodipine Besylate 10 Mg Tablet PO Not Given DAILY SANTIAGO Chlordiazepoxide HCl 50 mg 12/11/24 06:00 12/11/24 05:04 Chlordiazepoxide (*Crx) 25 Mg Capsule PO 50 mg Q6HR SANTIAGO Administration Dextrose 12.5 gm 12/11/24 11:48 Dextrose 50% 25 Gm/50 Ml Syringe IV PUSH PRN PRN Hypoglycemia Protocol Enoxaparin Sodium 40 mg 12/13/24 09:00 12/15/24 08:30 Enoxaparin 40 Mg/0.4 Ml Syringe SUB-Q 40 mg DAILY SANTIAGO Administration Fentanyl Citrate 50 mcg 12/12/24 23:31 12/13/24 18:12 Fentanyl Citrate Inj (*Crx) 100 Mcg/2 Ml Vial IV PUSH 50 mcg Q2H PRN Administration AGITATION WHILE ON VENT Folic Acid 1 mg 12/11/24 09:00 12/15/24 08:30 Folic Acid 1 Mg/0.2 Ml Inj IV PUSH 1 mg QAM SANTIAGO Administration Glucagon 1 mg 12/11/24 11:48 Glucagon For Inj 1 Mg Vial IM PRN PRN Hypoglycemia Protocol Glucose 15 gm 12/11/24 11:48 Glucose Oral Gel 15 Gm Of Glucse In 37.5 Gm Tube PO PRN PRN Hypoglycemia Protocol Cefepime HCl 2 gm in 50 mls @ 100 mls/hr 12/11/24 09:00 12/16/24 01:24 Maxipime 2 Gm/Ns 50 Ml IVPB Infused Q8H SANTIAGO Infusion Dextrose 1,000 mls @ 100 mls/hr 12/11/24 11:48 Dextrose 5% 1,000 Ml IVPB PRN PRN Hypoglycemia Protocol Propofol 100 mls @ 21.45 mls/hr 12/12/24 09:55 12/16/24 06:03 Diprivan IV CONT 50 mcg/kg/min .Q4H40M SANTIAGO 21.45 mls/hr Titration Protocol 50 MCG/KG/MIN Doxycycline Hyclate 100 mg in 100 mls @ 100 mls/hr 12/12/24 11:00 12/16/24 00:57 Vibramycin 100 Mg/Ns 100 Ml IVPB Infused Q12H SANTIAGO Infusion Fentanyl Citrate 2,500 mcg in 250 mls @ 20 mls/hr 12/13/24 08:15 12/16/24 06:03 Fentanyl 2,500 Mcg/Ns 250 Ml IV CONT 200 mcg/hr .[id number] SANTIAGO 20 mls/hr Titration Protocol 200 MCG/HR Vancomycin HCl 1,500 mg in 500 mls @ 250 mls/hr 12/16/24 01:00 12/16/24 02:00 Vancomycin 1,500 Mg/Ns 500 Ml IVPB Infused Q24H SANTIAGO Infusion Levalbuterol HCl 0.63 mg 12/11/24 09:00 Levalbuterol Neb 1.25 Mg/3 Ml INHALATION Q6HRT PRN Dryness Lorazepam 2 mg 12/11/24 04:19 12/12/24 01:57 Lorazepam Inj (*Crx) 2 Mg/Ml Vial IV PUSH 2 mg Q4H PRN Administration CIWA >8 Metoprolol Tartrate 5 mg 12/12/24 01:00 12/12/24 08:41 Metoprolol Tartrate Inj 5 Mg/5 Ml Vial IV PUSH 5 mg Q4H SANTIAGO Administration Metoprolol Tartrate 25 mg 12/13/24 21:00 12/15/24 20:58 Metoprolol Tartrate 25 Mg Tablet PO 25 mg Q12HR SANTIAGO Administration Multi-Ingred Cream/Lotion/Oil/Oint 1 applic 12/12/24 21:00 12/15/24 21:00 Mineral Oil/White Petrolatum Ointment EACH EYE 1 applic Q12HR SANTIAGO Administration Ondansetron HCl 4 mg 12/11/24 04:19 Ondansetron Inj 4 Mg/2 Ml Vial IV PUSH Q6H PRN Nausea And Vomiting Oseltamivir Phosphate 75 mg 12/12/24 21:00 12/15/24 20:59 Oseltamivir Phosphate Oral Susp 75 Mg/12.5 Ml Syringe PO 12/17/24 20:59 75 mg Q12HR SANTIAGO Administration Pantoprazole Sodium 40 mg 12/13/24 09:00 12/15/24 08:29 Pantoprazole Sodium Iv 40 Mg Vial IV PUSH 40 mg QAM SANTIAGO Administration Sodium Chloride 20 ml 12/12/24 11:00 Central Line Flush IV PUSH PRN PRN after blood draws Sodium Chloride 10 ml 12/12/24 11:00 Central Line Flush IV PUSH PRN PRN with TPN bag changes Sodium Chloride 10 ml 12/13/24 14:00 12/16/24 05:23 Central Line Flush IV PUSH 10 ml Q8HR SANTIAGO Administration Sodium Chloride 20 ml 12/13/24 12:24 Central Line Flush IV PUSH PRN PRN after blood draws Thiamine HCl 100 mg 12/11/24 09:00 12/15/24 08:29 Thiamine Hcl 200 Mg/2 Ml Vial IV PUSH 100 mg QAM SANTIAGO Administration Radiology Results: ITS Impressions Chest CTA 12/10/24 19:15 IMPRESSION: No pulmonary embolism. No aortic dissection. Multifocal pneumonia. Abdomen X-Ray 12/12/24 10:23 IMPRESSION: 1. Nasogastric tube tip in the stomach. Chest CT 12/15/24 16:37 IMPRESSION: Endotracheal tube, left IJ central venous line, NG tube, all in good position. Pulmonary opacities likely representing worsening atypical/viral infection. Small cavitary lesions noted in the right upper lobe. A component of aspiration could be considered given the presence of airway secretions/debris. Trace bilateral pleural effusions. Ascending aortic ectasia. Chest X-Ray 12/16/24 05:50 Impression: Patchy multifocal bilateral pneumonia, as detailed above. Support tubes, as above. Labs Labs: Laboratory Results - last 24 hr 12/15/24 12/15/24 12/15/24 11:39 12:16 18:08 WBC RBC Hgb Hct MCV MCH MCHC RDW Plt Count MPV Immature Gran % (Auto) Neut % (Auto) Lymph % (Auto) [place] % (Auto) Eos % (Auto) Baso % (Auto) Lymph # (Auto) [place] # (Auto) Eos # (Auto) Baso # (Auto) Abs Immat Gran (auto) Absolute Neuts (auto) Absolute Nucleated RBC Nucleated RBC % Puncture Site ABG pH ABG pCO2 ABG pO2 ABG PO2/FiO2 Ratio ABG HCO3 ABG O2 Saturation ABG O2 Content ABG Base Excess A-a Gradient Oxyhemoglobin Carboxyhemoglobin Methemoglobin Reduced Hemoglobin Total Hemoglobin O2 Delivery Device O2 Liters/Min Minute Volume Vent Rate Vent Mode FiO2 Tidal Volume PEEP Peak Inspir Pressure Pressure Support Sodium Potassium Chloride Carbon Dioxide Anion Gap BUN Creatinine Estim Creat Clear Calc Estimated GFR Glucose POC Capillary Glucose 94 99 Calcium Phosphorus Magnesium Total Bilirubin AST ALT Alkaline Phosphatase Total Protein Albumin Triglycerides Vancomycin Trough 25.9 H 12/16/24 12/16/24 12/16/24 01:25 04:07 04:07 WBC 6.5 RBC 2.84 L Hgb 9.5 L Hct 29.7 L MCV 104.6 H MCH 33.5 MCHC 32.0 RDW 14.9 H Plt Count 291 MPV 10.5 H Immature Gran % (Auto) 1.4 H Neut % (Auto) 71.3 Lymph % (Auto) 14.5 L [place] % (Auto) 10.0 H Eos % (Auto) 2.6 Baso % (Auto) 0.2 Lymph # (Auto) 0.94 [place] # (Auto) 0.7 H Eos # (Auto) 0.2 Baso # (Auto) 0.0 Abs Immat Gran (auto) 0.09 H Absolute Neuts (auto) 4.6 Absolute Nucleated RBC 0.000 Nucleated RBC % 0.0 Puncture Site ABG pH ABG pCO2 ABG pO2 ABG PO2/FiO2 Ratio ABG HCO3 ABG O2 Saturation ABG O2 Content ABG Base Excess A-a Gradient Oxyhemoglobin Carboxyhemoglobin Methemoglobin Reduced Hemoglobin Total Hemoglobin O2 Delivery Device O2 Liters/Min Minute Volume Vent Rate Vent Mode FiO2 Tidal Volume PEEP Peak Inspir Pressure Pressure Support Sodium 147 H Potassium 4.0 Chloride 114 H Carbon Dioxide 30 Anion Gap 3 L BUN 38 H Creatinine 1.30 Estim Creat Clear Calc 55 Estimated GFR 56 L Glucose 108 POC Capillary Glucose 98 Calcium 7.9 L Phosphorus Cancelled 3.8 Magnesium Cancelled Total Bilirubin AST ALT Alkaline Phosphatase Total Protein Albumin Triglycerides Vancomycin Trough 12/16/24 12/16/24 04:07 05:05 WBC RBC Hgb Hct MCV MCH MCHC RDW Plt Count MPV Immature Gran % (Auto) Neut % (Auto) Lymph % (Auto) [place] % (Auto) Eos % (Auto) Baso % (Auto) Lymph # (Auto) [place] # (Auto) Eos # (Auto) Baso # (Auto) Abs Immat Gran (auto) Absolute Neuts (auto) Absolute Nucleated RBC Nucleated RBC % Puncture Site Right radial ABG pH 7.345 L ABG pCO2 45.1 H ABG pO2 75.3 L ABG PO2/FiO2 Ratio 2.51 ABG HCO3 24.1 ABG O2 Saturation 94.4 L ABG O2 Content 15.2 L ABG Base Excess -1.7 A-a Gradient 85.6 Oxyhemoglobin 93.9 Carboxyhemoglobin 0.9 Methemoglobin 0.1 Reduced Hemoglobin 5.1 H Total Hemoglobin 11.5 L O2 Delivery Device Ventilator O2 Liters/Min Not Reportable Minute Volume Not Reportable Vent Rate 20 Vent Mode Cmv FiO2 30 Tidal Volume 480 PEEP 8 Peak Inspir Pressure Not Reportable Pressure Support Not Reportable Sodium Potassium Chloride Carbon Dioxide Anion Gap BUN Creatinine Estim Creat Clear Calc Estimated GFR Glucose POC Capillary Glucose Calcium Phosphorus Magnesium 1.8 Total Bilirubin 0.5 AST 30 ALT 22 Alkaline Phosphatase 63 Total Protein 6.0 L Albumin 2.4 L Triglycerides 217 H Vancomycin Trough Quality VTE Prophylaxis VTE prophylaxis: pharmacologic ordered
[2024-12-16] MEDS: MAGNESIUM SULF 2 GM/WATER 50ML 2 GM/50 ML BAG IVPB (09:14)
[2024-12-16] MEDS: MINERAL OIL/WHITE PETROLATUM OINTMENT 1 APPLIC EACH EYE ×2 (09:15→20:28)
[2024-12-16] MEDS: ALTEPLASE 2 MG VIAL (CATHFLO) IV PUSH ×3 (10:34→16:31)
[2024-12-16] MEDS: DOXYCYCLINE 100 MG/NS 100 ML 100 MG/100 ML BAG IVPB ×2 (11:01→22:29)
--- NOTE | 2024-12-16 11:01 | PCFNICU ---
ICU Rounding Note: Pt current nutrition is Vital AF 1.2 at 50 ml/hr. Last recorded weight is 76.8 kg, up from 69 kg on admit. . Bowel Motility: No BM reported. Starting Miralax today. Labs Reviewed:TG 217, BUN 38, NA 147, Hct 29.7, Hgb 9.5 Meds Noted: Protonix, Thiamine, Folic Acid, Librium, Propofol 50 ixmc=843 kcal, Meropenem, Miralax. Skin: WNL Additional Notes:Patient remains on mechanical vent. Tube feedings are being tolerated of Vital AF 1.2 at 50 ml/hr. Flush 100 ml q 4 hours. Tube feedings are currently on hold for bronchoscopy. Agree with diet order at this time. Will continue to monitor propofol infusion for any tube feedings rate recommendations. Following daily in ICU rounds. Will monitor weight, labs, skin, diet orders, meds every Monday and Monday.
--- NOTE | 2024-12-16 11:34 | P.CONPL_ITS ---
Assessment and Plan Assessment and plan (1) Multifocal pneumonia: Code(s): J18.9 - Pneumonia, unspecified organism Status: Acute Assessment and Plan: Patient with influenza and cavities RUL anterior segment. Bronchoscopy requested for collection of respiratory specimens for bacteria, fungal and AFB. . Plan: I discussed risks and benefits with and she is willing to proceed with bronchoscopy with secretion aspiration and BAL of RUL. Agree with adding meropenem and DC cefepime for added anaerobic coverage. Continue doxycycline and vancomycin. Continue Tamiflu for total of 10 days. I do not recommend fungal coverage at this time. Discussed with Dr. Alvarez. History of Present Illness History of Present Illness Consult date: 12/16/24 Chief complaint: Influenza, afib Narrative: 12/16/24: New consult for bronchoscopy 64 with history of ETOH use now with influenza. Patient intubated in ICU and remains with leukocytosis. CT scan chest with diffuse patchy infiltrates with some consolidation and RUL small cavities without air fluid level. Positive mediastinal adenopathy. Cultures negative of blood and sputum. Bronchoscopy requested for respiratory specimens. Patient intubated on fentanyl and propofol with 30% FIO2 and peep of 8. Review of Systems 2 Review of Systems: ROS unobtainable: Yes unobtainable due to endotracheal tube and unobtainable due to medical condition PMFSH Past Medical History Medical History Hypertension Family History Family History Father Dementia Sibling Alcohol abuse Social History Social History Smoking packs per day: 1 Smoking cigarettes per day: 20.0 Years smoked: 5 Smoking pack-years: 5.00 Smoking status: Current every day smoker Tobacco type: cigarettes Alcohol intake: never Substance use: never Do You Feel Safe in your Home?: Yes Lack of Transportation: No Lack of Food: Never True Current Housing: I Have Housing Concerned About Future Housing: No Difficulty Paying Gas/Electric Bills: No Difficulty Paying for Meds: No Currently Unemployed: No Education: Bachelor's Degree Difficulty w/ Childcare or Family Care: No Spiritual care concerns: No Meds Home Medications and Allergies Home Medications ?Medication ?Instructions ?Recorded ?Confirmed ?Type hydrochlorothiazide 25 mg tablet 25 mg PO DAILY #30 tabs 11/03/23 12/11/24 Rx lisinopril 40 mg tablet 40 mg PO DAILY #30 tabs 11/03/23 12/11/24 Rx amlodipine 10 mg tablet 10 mg PO DAILY 12/22/23 12/11/24 History amlodipine 10 mg tablet 10 mg PO DAILY 30 days #30 tabs 12/22/23 12/11/24 Rx hydrochlorothiazide 25 mg tablet 25 mg PO DAILY 30 days #30 tabs 12/22/23 12/11/24 Rx lisinopril 40 mg tablet 40 mg PO DAILY 30 days #30 tabs 12/22/23 12/11/24 Rx amlodipine 10 mg tablet 10 mg PO DAILY 60 days #60 tabs 01/20/24 12/11/24 Rx hydrochlorothiazide 25 mg tablet 25 mg PO DAILY 60 days #60 tabs 01/20/24 12/11/24 Rx lisinopril 40 mg tablet 40 mg PO DAILY 60 days #60 tabs 01/20/24 12/11/24 Rx albuterol sulfate 90 mcg/actuation 2 puff inhalation QID PRN 12/09/24 12/11/24 Rx aerosol inhaler shortness of breath or wheezing #6.7 grams amoxicillin 875 mg tablet 875 mg PO Q12H 10 days #20 tabs 12/09/24 12/11/24 Rx azithromycin 250 mg tablet See Rx Instructions PO .COMPLEX #6 12/09/24 12/11/24 Rx tabs inhalational spacing device #1 ea 12/09/24 12/11/24 Rx (Aerochamber MV spacer) prednisone 20 mg tablet 40 mg (2 x 20 mg) PO DAILY 5 days 12/09/24 12/11/24 Rx #10 tabs Allergies Allergy/AdvReac Type Severity Reaction Status Date / Time cephalexin Allergy Intermediate HIVES Verified 12/13/24 08:19 Vital Signs Vital Signs - 24 hr 12/15/24 11:43 12/15/24 12:00 12/15/24 12:00 Temperature 36.9 C Pulse Rate 80 75 Respiratory Rate 20 Blood Pressure 115/74 Pulse Oximetry 96 95 Oxygen Delivery Mechanical Ventilation Fraction of Inspired Oxygen 30 35 12/15/24 12:00 12/15/24 12:00 12/15/24 12:00 Temperature Pulse Rate 75 75 Respiratory Rate 20 Blood Pressure Pulse Oximetry Oxygen Delivery Mechanical Ventilation Fraction of Inspired Oxygen 35 12/15/24 12:00 12/15/24 14:00 12/15/24 14:00 Temperature Pulse Rate 75 74 75 Respiratory Rate 20 21 H Blood Pressure 116/75 Pulse Oximetry 95 Oxygen Delivery Fraction of Inspired Oxygen 12/15/24 14:00 12/15/24 14:15 12/15/24 14:59 Temperature Pulse Rate 75 76 75 Respiratory Rate 21 H 21 H Blood Pressure Pulse Oximetry 94 Oxygen Delivery Mechanical Ventilation Fraction of Inspired Oxygen 30 12/15/24 15:47 12/15/24 15:47 12/15/24 16:00 Temperature 37.1 C Pulse Rate 77 77 94 Respiratory Rate 20 20 17 Blood Pressure 136/81 Pulse Oximetry 96 Oxygen Delivery Fraction of Inspired Oxygen 12/15/24 16:00 12/15/24 16:00 12/15/24 16:00 Temperature Pulse Rate 94 Respiratory Rate 17 Blood Pressure Pulse Oximetry Oxygen Delivery Mechanical Ventilation Fraction of Inspired Oxygen 35 35 12/15/24 16:00 12/15/24 16:02 12/15/24 16:02 Temperature Pulse Rate 94 78 78 Respiratory Rate 20 20 Blood Pressure Pulse Oximetry Oxygen Delivery Fraction of Inspired Oxygen 12/15/24 17:03 12/15/24 17:45 12/15/24 18:00 Temperature Pulse Rate 85 94 76 Respiratory Rate 17 Blood Pressure Pulse Oximetry 95 Oxygen Delivery Mechanical Ventilation Fraction of Inspired Oxygen 30 12/15/24 18:00 12/15/24 18:00 12/15/24 18:00 Temperature Pulse Rate 79 79 79 Respiratory Rate 20 20 20 Blood Pressure 115/68 Pulse Oximetry 93 Oxygen Delivery Fraction of Inspired Oxygen 12/15/24 20:00 12/15/24 20:00 12/15/24 20:00 Temperature 37.1 C Pulse Rate 72 71 Respiratory Rate 20 Blood Pressure 115/70 Pulse Oximetry 96 Oxygen Delivery Mechanical Ventilation Fraction of Inspired Oxygen 35 12/15/24 20:00 12/15/24 20:00 12/15/24 20:09 Temperature Pulse Rate 72 74 Respiratory Rate 20 20 Blood Pressure Pulse Oximetry Oxygen Delivery Fraction of Inspired Oxygen 35 12/15/24 20:09 12/15/24 20:16 12/15/24 20:42 Temperature Pulse Rate 71 73 80 Respiratory Rate 20 20 Blood Pressure Pulse Oximetry 97 Oxygen Delivery Mechanical Ventilation Fraction of Inspired Oxygen 30 12/15/24 20:55 12/15/24 20:58 12/15/24 22:00 Temperature Pulse Rate 80 81 62 Respiratory Rate 20 Blood Pressure Pulse Oximetry Oxygen Delivery Fraction of Inspired Oxygen 12/15/24 22:00 12/15/24 22:00 12/15/24 22:00 Temperature Pulse Rate 70 71 71 Respiratory Rate 20 20 20 Blood Pressure 118/75 Pulse Oximetry 96 Oxygen Delivery Fraction of Inspired Oxygen 12/16/24 00:00 12/16/24 00:00 12/16/24 00:00 Temperature Pulse Rate 66 Respiratory Rate Blood Pressure Pulse Oximetry Oxygen Delivery Mechanical Ventilation Fraction of Inspired Oxygen 35 35 12/16/24 00:00 12/16/24 00:00 12/16/24 00:00 Temperature 36.7 C Pulse Rate 62 62 62 Respiratory Rate 20 20 20 Blood Pressure 114/72 Pulse Oximetry Oxygen Delivery Fraction of Inspired Oxygen 12/16/24 01:27 12/16/24 01:27 12/16/24 02:00 Temperature Pulse Rate 60 60 60 Respiratory Rate 20 20 Blood Pressure Pulse Oximetry Oxygen Delivery Fraction of Inspired Oxygen 12/16/24 02:00 12/16/24 02:00 12/16/24 02:00 Temperature Pulse Rate 60 60 60 Respiratory Rate 20 20 20 Blood Pressure 111/70 Pulse Oximetry 95 Oxygen Delivery Fraction of Inspired Oxygen 12/16/24 02:03 12/16/24 02:03 12/16/24 02:18 Temperature Pulse Rate 59 L 60 60 Respiratory Rate 20 20 Blood Pressure Pulse Oximetry 95 Oxygen Delivery Mechanical Ventilation Fraction of Inspired Oxygen 30 12/16/24 04:00 12/16/24 04:00 12/16/24 04:00 Temperature 36.2 C L Pulse Rate 61 61 Respiratory Rate 20 20 Blood Pressure 127/73 Pulse Oximetry 97 Oxygen Delivery Fraction of Inspired Oxygen 30 12/16/24 04:00 12/16/24 04:00 12/16/24 04:00 Temperature Pulse Rate 61 60 Respiratory Rate 20 Blood Pressure Pulse Oximetry Oxygen Delivery Mechanical Ventilation Fraction of Inspired Oxygen 35 12/16/24 04:18 12/16/24 04:43 12/16/24 05:00 Temperature Pulse Rate 80 80 86 Respiratory Rate 20 20 Blood Pressure Pulse Oximetry 97 Oxygen Delivery Mechanical Ventilation Fraction of Inspired Oxygen 30 12/16/24 05:23 12/16/24 05:23 12/16/24 06:00 Temperature Pulse Rate 80 80 90 Respiratory Rate 21 H 21 H Blood Pressure Pulse Oximetry Oxygen Delivery Fraction of Inspired Oxygen 12/16/24 06:00 12/16/24 06:03 12/16/24 06:03 Temperature Pulse Rate 90 90 90 Respiratory Rate 18 18 18 Blood Pressure 158/87 H Pulse Oximetry 98 Oxygen Delivery Fraction of Inspired Oxygen 12/16/24 08:00 12/16/24 08:00 12/16/24 08:00 Temperature 37.0 C Pulse Rate 71 71 Respiratory Rate 18 20 Blood Pressure 103/65 Pulse Oximetry 93 93 Oxygen Delivery Mechanical Ventilation Fraction of Inspired Oxygen 30 30 12/16/24 08:00 12/16/24 08:00 12/16/24 08:28 Temperature Pulse Rate 71 71 67 Respiratory Rate 20 20 Blood Pressure Pulse Oximetry 94 Oxygen Delivery Mechanical Ventilation Fraction of Inspired Oxygen 30 12/16/24 08:28 12/16/24 08:37 12/16/24 08:59 Temperature Pulse Rate 67 67 71 Respiratory Rate 20 20 Blood Pressure Pulse Oximetry Oxygen Delivery Fraction of Inspired Oxygen 12/16/24 09:28 12/16/24 09:28 12/16/24 10:00 Temperature Pulse Rate 70 70 62 Respiratory Rate 20 20 20 Blood Pressure Pulse Oximetry Oxygen Delivery Fraction of Inspired Oxygen 12/16/24 10:00 12/16/24 10:00 12/16/24 10:43 Temperature Pulse Rate 62 62 58 L Respiratory Rate 20 20 Blood Pressure 103/67 Pulse Oximetry 94 94 Oxygen Delivery Mechanical Ventilation Fraction of Inspired Oxygen 30 Exam 2 Narrative: intubated AND sedated HENMT: Head: normal to inspection Ears: hearing grossly normal bilaterally Eyes: General: appearance normal, both eyes and all related structures Neck: Neck: normal visual inspection Chest: Chest palpation & inspection: normal inspection of the chest Resp: Effort & Inspection: normal respiratory effort and able to speak in complete sentences Auscultation: no crackles, no rales, no rhonchi, no wheezes and lung sounds not diminished Cardio: Jugular venous distension: no JVD GI: Inspection: normal to inspection GI Palp: No abdominal tenderness Skin: General skin exam: normal color Neuro: Other: sedated iwth propofol and fentanyl Extrem: General: normal to inspection Results Laboratory Findings 12/16/24 04:07 12/16/24 04:07 ABG, PT/INR, D-dimer: ABG ABG pH 7.345 (7.350-7.450) L 12/16/24 05:05 ABG pCO2 45.1 mmHg (35.0-45.0) H 12/16/24 05:05 ABG pO2 75.3 mmHg (80.0-100.0) L 12/16/24 05:05 ABG O2 Saturation 94.4 % (95.0-100.0) L 12/16/24 05:05 PT/INR, D-dimer PT 14.9 Seconds (11.1-14.7) H 12/11/24 04:36 INR 1.1 12/11/24 04:36 D-Dimer 2.28 ug/mL (<0.48) H 12/10/24 17:14 Abnormal lab findings: Abnormal Labs 12/10/24 12/10/24 12/10/24 17:14 18:48 20:31 WBC 10.1 H RBC 4.34 L Hgb Hct 40.6 L MCV RDW Plt Count 378 H MPV Immature Gran % (Auto) 0.7 H Neut % (Auto) 85.5 H Lymph % (Auto) 4.4 L [place] % (Auto) Baso % (Auto) Lymph # (Auto) 0.44 L [place] # (Auto) 0.7 H Abs Immat Gran (auto) 0.07 H Absolute Neuts (auto) 8.6 H PT D-Dimer 2.28 H ABG pH ABG pCO2 ABG pO2 ABG HCO3 ABG O2 Saturation ABG O2 Content Reduced Hemoglobin Total Hemoglobin Sodium 132 L Potassium Chloride 93 L Carbon Dioxide Anion Gap 13 H BUN 61 H Creatinine Estimated GFR 58 L Glucose 122 H POC Capillary Glucose Lactic Acid Calcium Phosphorus Magnesium Total Bilirubin 2.0 H AST 88 H ALT 60 H C-Reactive Protein 19.7 H NT-Pro-B Natriuret Pep 2990 H Total Protein Albumin Triglycerides Urine Ketones Trace H Vancomycin Trough Influenza A (RT-PCR) Positive A 12/11/24 12/11/24 12/11/24 02:32 04:36 17:51 WBC 10.7 H RBC 3.44 L Hgb 11.5 L Hct 33.5 L MCV RDW Plt Count MPV Immature Gran % (Auto) 0.7 H Neut % (Auto) 87.7 H Lymph % (Auto) 3.2 L [place] % (Auto) Baso % (Auto) Lymph # (Auto) 0.34 L [place] # (Auto) 0.8 H Abs Immat Gran (auto) 0.07 H Absolute Neuts (auto) 9.4 H PT 14.9 H D-Dimer ABG pH ABG pCO2 ABG pO2 65.1 L ABG HCO3 ABG O2 Saturation 93.5 L ABG O2 Content Reduced Hemoglobin 8.4 H Total Hemoglobin Sodium 134 L Potassium Chloride Carbon Dioxide Anion Gap BUN 47 H D Creatinine Estimated GFR Glucose POC Capillary Glucose 144 H Lactic Acid Calcium Phosphorus 4.9 H Magnesium 2.6 H Total Bilirubin AST ALT C-Reactive Protein NT-Pro-B Natriuret Pep Total Protein Albumin Triglycerides Urine Ketones Vancomycin Trough Influenza A (RT-PCR) 12/11/24 12/12/24 12/12/24 23:51 04:50 06:00 WBC RBC Hgb Hct MCV RDW Plt Count MPV Immature Gran % (Auto) Neut % (Auto) Lymph % (Auto) [place] % (Auto) Baso % (Auto) Lymph # (Auto) [place] # (Auto) Abs Immat Gran (auto) Absolute Neuts (auto) PT D-Dimer ABG pH ABG pCO2 47.9 H ABG pO2 209.9 H ABG HCO3 28.5 H ABG O2 Saturation ABG O2 Content Reduced Hemoglobin Total Hemoglobin Sodium Potassium Chloride Carbon Dioxide Anion Gap BUN Creatinine Estimated GFR Glucose POC Capillary Glucose 152 H 148 H Lactic Acid Calcium Phosphorus Magnesium Total Bilirubin AST ALT C-Reactive Protein NT-Pro-B Natriuret Pep Total Protein Albumin Triglycerides Urine Ketones Vancomycin Trough Influenza A (RT-PCR) 12/12/24 12/12/24 12/12/24 09:08 09:14 11:45 WBC RBC 3.60 L Hgb 11.9 L Hct 35.8 L MCV RDW Plt Count MPV Immature Gran % (Auto) 1.0 H Neut % (Auto) 87.2 H Lymph % (Auto) 4.2 L [place] % (Auto) Baso % (Auto) Lymph # (Auto) 0.36 L [place] # (Auto) Abs Immat Gran (auto) 0.09 H Absolute Neuts (auto) 7.6 H PT D-Dimer ABG pH ABG pCO2 50.2 H ABG pO2 378.6 H ABG HCO3 27.1 H ABG O2 Saturation ABG O2 Content Reduced Hemoglobin Total Hemoglobin Sodium 146 H Potassium 3.2 L Chloride Carbon Dioxide 36 H Anion Gap 3 L BUN Creatinine 0.67 L Estimated GFR Glucose 121 H POC Capillary Glucose Lactic Acid Calcium Phosphorus 1.9 L Magnesium Total Bilirubin AST ALT C-Reactive Protein NT-Pro-B Natriuret Pep Total Protein Albumin 3.1 L Triglycerides 347 H Urine Ketones Vancomycin Trough Influenza A (RT-PCR) 12/12/24 12/12/24 12/12/24 13:06 17:49 23:32 WBC RBC Hgb Hct MCV RDW Plt Count MPV Immature Gran % (Auto) Neut % (Auto) Lymph % (Auto) [place] % (Auto) Baso % (Auto) Lymph # (Auto) [place] # (Auto) Abs Immat Gran (auto) Absolute Neuts (auto) PT D-Dimer ABG pH ABG pCO2 ABG pO2 ABG HCO3 ABG O2 Saturation ABG O2 Content Reduced Hemoglobin Total Hemoglobin Sodium Potassium Chloride Carbon Dioxide Anion Gap BUN Creatinine Estimated GFR Glucose POC Capillary Glucose 119 H 120 H 117 H Lactic Acid Calcium Phosphorus Magnesium Total Bilirubin AST ALT C-Reactive Protein NT-Pro-B Natriuret Pep Total Protein Albumin Triglycerides Urine Ketones Vancomycin Trough Influenza A (RT-PCR) 12/13/24 12/14/24 12/14/24 04:08 05:31 06:08 WBC 10.1 H RBC 3.15 L 3.28 L Hgb 10.7 L 10.9 L Hct 32.4 L 33.5 L MCV 102.9 H 102.1 H RDW Plt Count MPV Immature Gran % (Auto) 1.3 H 1.3 H Neut % (Auto) 84.8 H 84.7 H Lymph % (Auto) 6.9 L 5.0 L [place] % (Auto) Baso % (Auto) 0.1 L 0.1 L Lymph # (Auto) 0.54 L 0.50 L [place] # (Auto) 0.8 H Abs Immat Gran (auto) 0.10 H 0.13 H Absolute Neuts (auto) 8.5 H PT D-Dimer ABG pH ABG pCO2 ABG pO2 75.8 L ABG HCO3 ABG O2 Saturation ABG O2 Content 15.7 L Reduced Hemoglobin 5.1 H Total Hemoglobin 11.8 L Sodium 147 H 148 H Potassium Chloride 113 H 114 H Carbon Dioxide 32 H 31 H Anion Gap 2 L 3 L BUN 23 H Creatinine 0.69 L Estimated GFR Glucose 115 H 132 H POC Capillary Glucose Lactic Acid 0.6 L Calcium 8.0 L 7.9 L Phosphorus 1.9 L Magnesium Total Bilirubin AST ALT C-Reactive Protein NT-Pro-B Natriuret Pep Total Protein 6.0 L 6.0 L Albumin 2.6 L 2.7 L Triglycerides 322 H Urine Ketones Vancomycin Trough Influenza A (RT-PCR) 12/14/24 12/15/24 12/15/24 11:54 05:34 05:58 WBC RBC 2.99 L Hgb 10.1 L Hct 31.6 L MCV 105.7 H RDW 14.8 H Plt Count MPV Immature Gran % (Auto) 1.5 H Neut % (Auto) 76.5 H Lymph % (Auto) 9.2 L [place] % (Auto) 10.8 H Baso % (Auto) Lymph # (Auto) 0.75 L [place] # (Auto) 0.9 H Abs Immat Gran (auto) 0.12 H Absolute Neuts (auto) PT D-Dimer ABG pH 7.348 L ABG pCO2 49.0 H ABG pO2 69.9 L ABG HCO3 26.3 H ABG O2 Saturation 93.1 L ABG O2 Content 14.3 L Reduced Hemoglobin 6.6 H Total Hemoglobin 11.0 L Sodium 147 H Potassium Chloride 117 H Carbon Dioxide Anion Gap 2 L BUN 30 H Creatinine Estimated GFR Glucose POC Capillary Glucose 127 H Lactic Acid Calcium 7.9 L Phosphorus Magnesium Total Bilirubin AST ALT C-Reactive Protein NT-Pro-B Natriuret Pep Total Protein 6.0 L Albumin 2.6 L Triglycerides Urine Ketones Vancomycin Trough Influenza A (RT-PCR) 12/15/24 12/16/24 12/16/24 12:16 04:07 05:05 WBC RBC 2.84 L Hgb 9.5 L Hct 29.7 L MCV 104.6 H RDW 14.9 H Plt Count MPV 10.5 H Immature Gran % (Auto) 1.4 H Neut % (Auto) Lymph % (Auto) 14.5 L [place] % (Auto) 10.0 H Baso % (Auto) Lymph # (Auto) [place] # (Auto) 0.7 H Abs Immat Gran (auto) 0.09 H Absolute Neuts (auto) PT D-Dimer ABG pH 7.345 L ABG pCO2 45.1 H ABG pO2 75.3 L ABG HCO3 ABG O2 Saturation 94.4 L ABG O2 Content 15.2 L Reduced Hemoglobin 5.1 H Total Hemoglobin 11.5 L Sodium 147 H Potassium Chloride 114 H Carbon Dioxide Anion Gap 3 L BUN 38 H Creatinine Estimated GFR 56 L Glucose POC Capillary Glucose Lactic Acid Calcium 7.9 L Phosphorus Magnesium Total Bilirubin AST ALT C-Reactive Protein NT-Pro-B Natriuret Pep Total Protein 6.0 L Albumin 2.4 L Triglycerides 217 H Urine Ketones Vancomycin Trough 25.9 H Influenza A (RT-PCR) Diagnostic Findings Additional studies: ITS Impressions Chest CTA 12/10/24 19:15 IMPRESSION: No pulmonary embolism. No aortic dissection. Multifocal pneumonia. Chest X-Ray 12/12/24 09:35 IMPRESSION: Right upper lobe pneumonia. Bilateral patchy opacities suggestive of pneumonia. Underlying pulmonary edema cannot be excluded. Clinical correlation advised. Abdomen X-Ray 12/12/24 10:23 IMPRESSION: 1. Nasogastric tube tip in the stomach. Chest X-Ray 12/12/24 10:28 IMPRESSION: Right upper lobe pneumonia. Bilateral patchy opacities suggestive of pneumonia. Underlying pulmonary edema is not excluded.. Chest X-Ray 12/12/24 11:11 IMPRESSION: No change from previous examination. Chest X-Ray 12/13/24 06:10 IMPRESSION: 1. Stable diffuse lung disease, consistent with pneumonia. 2. PICC tip in abnormal position in the right internal jugular vein. Chest X-Ray 12/13/24 07:18 IMPRESSION: 1. PICC tip in abnormal position in the right internal jugular vein. 2. Stable diffuse lung disease, consistent with pneumonia. Chest X-Ray 12/13/24 08:40 Impression: 1: Developing patchy bilateral airspace disease, compatible with pneumonia. Chest X-Ray 12/14/24 06:11 IMPRESSION: 1. Stable diffuse lung disease, consistent with pneumonia. 2. The PICC loops into the right internal jugular vein with tip at the junction of the right internal jugular vein and right brachiocephalic vein. Chest X-Ray 12/15/24 10:54 IMPRESSION: Findings suggesting multifocal pneumonia. Supportive lines and tubes in good position. Chest CT 12/15/24 16:37 IMPRESSION: Endotracheal tube, left IJ central venous line, NG tube, all in good position. Pulmonary opacities likely representing worsening atypical/viral infection. Small cavitary lesions noted in the right upper lobe. A component of aspiration could be considered given the presence of airway secretions/debris. Trace bilateral pleural effusions. Ascending aortic ectasia. Chest X-Ray 12/16/24 05:50 Impression: Patchy multifocal bilateral pneumonia, as detailed above. Support tubes, as above.
--- NOTE | 2024-12-16 11:51 | SUR.OPER ---
1148 VSS 129/86 HR 70 SINUS RESP 18 SOI2 100
--- NOTE | 2024-12-16 11:56 | SUR.OPER ---
1156 BP 125/77 HR 66 SINUS RESP 18 SP02 100
--- NOTE | 2024-12-16 11:59 | SUR.OPER ---
1158 END OF PROCEDURE 122/72 HR 65 SINUS RESP 20 SPO2 100.
[2024-12-16] MEDS: LIDOCAINE 2% LOCAL INJ 20 ML VIAL 6 ML INFILTRATE (12:05)
[2024-12-16] MEDS: SODIUM CHLORIDE 0.9% IV 500 ML BAG IRRIGATION (12:06)
--- NOTE | 2024-12-16 12:34 | PM.OP ---
Procedure Note - Brief Procedure Note - Brief Date of procedure: 12/16/24 Influenza, afib Procedure performed: Bronchoscopy with BAL Surgeon: Nehemias Flynn MD Description of procedure: After informed consent and a time-out the bronchoscope was inserted through the existing endotracheal tube. 4 mL of 1% lidocaine was administered to the uday and 2 mL of 1% lidocaine administered to the right upper lobe. mucosa appeared normal. There were no large airway secretions. BAL of the right upper lobe anterior apical segment was performed with 5 20 mL aliquots. Fluid was clear with no evidence of hemorrhage. Remainder of right middle lobe, right lower lobe and left lung segments were patent with no large airway secretions. BAL of the right upper lobepatient was intubated by the anesthesia team. Bronchoscope was inserted through the ET tube and 2 mL of lidocaine was administered to the main uday and then to the right mainstem. BAL return was 50 mL. ET tube was 4 cm above the uday. Specimen sent to the laboratory included bacterial stain and culture, fungal stain and culture and AFB stain and culture. CXR: EXAMINATION: XR chest 1V portable DATE: 12/16/2024 12:22 INDICATION: Post bronchoscopy TECHNIQUE: frontal view of the chest was obtained. COMPARISON: Chest radiograph dated 12/16/2024 at 5:[address] dated 12/15/2024 FINDINGS: Endotracheal tube tip 4.8 cm above the uday. Nasogastric tube with distal tip in the body the stomach and distal tip collimated off the study. Left internal jugular central venous catheter with distal tip near the superior cavoatrial junction. No significant interval change in coarse reticular and patchy airspace opacities throughout both lungs most prominent apices and at the left lung base. No pleural effusion or pneumothorax. The cardiomediastinal silhouette is normal. Visualized bones and soft tissues are unremarkable. IMPRESSION: 1. No change in diffuse bilateral lung disease consistent with pneumonia.
[2024-12-16] MEDS: MEROPENEM 1 GM/NS 100 ML 1 GM/100 ML BAG IVPB ×2 (12:45→22:29)
[2024-12-16] MEDS: polyethylene glycoL 3350 17 GM POWD.PACK PO (12:53)
[2024-12-16 13:09] LABS: Glucose Point of Care 83 mg/dl (65-105)
--- NOTE | 2024-12-16 15:26 | P.PNIM_ITS ---
Progress Note: A&P Assessment and Plan (1) Acute respiratory failure: Code(s): J96.00 - Acute respiratory failure, unspecified whether with hypoxia or hypercapnia Status: Acute Assessment and Plan: 12/12: Acute respiratory failure/impending respiratory failure likely related to altered mentation secondary to alcohol withdrawal, respiratory distress due to pneumonia and influenza A, COPD/emphysema -12/12: Intubated in the ICU -currently on CMV mode of ventilation, peep of 8 and 30% FiO2, -chest x-ray this morning shows stable diffuse lung disease consistent with pneumonia -continue bronchodilators given history of COPD -Sedated with propofol and fentanyl infusion, maintain RASS of 0 to -2, daily SBT and SAT -12/15: Will obtain CT scan of the chest without contrast to evaluate architecture of the lungs (2) Multifocal pneumonia: Code(s): J18.9 - Pneumonia, unspecified organism Status: Acute Assessment and Plan: 12/10: CT chest PE protocol was negative for PE, but showed bilateral multifocal pneumonia -chest x-ray also showed bilateral multifocal pneumonia -continue cefepime doxycycline, vancomycin (12/12) 12/10: Blood cultures negative x2 12/12: Sputum cultures are negative 12/12: Nasal MRSA not detected (3) COPD with emphysema: Code(s): J43.9 - Emphysema, unspecified Status: Acute Assessment and Plan: History of COPD/emphysema -currently on mechanical ventilation, continue bronchodilators (4) SVT (supraventricular tachycardia): Code(s): I47.10 - Supraventricular tachycardia, unspecified Status: Acute Assessment and Plan: Patient went into SVT on admission, appreciate cardiology evaluation and recommendation likely related to respiratory distress from pneumonia, influenza, alcohol withdrawal. -patient was started on metoprolol per tube by cardiology (12/13) -currently in sinus rhythm, rate controlled, patient does have intermittent SVTs which is short-lived (5) Alcohol withdrawal: Code(s): F10.939 - Alcohol use, unspecified with withdrawal, unspecified Status: Acute Assessment and Plan: Patient does have a history of significant alcohol use -in the IMU he had elevated CIWA score and received multiple doses of Ativan -12/12: when I evaluated the patient he was confused, tremulous, and was in alcohol withdrawal -currently intubated and sedated (6) Tobacco dependence: Code(s): F17.200 - Nicotine dependence, unspecified, uncomplicated Status: Acute Assessment and Plan: Will behavioral health counselor patient on cessation of tobacco use once he is off the ventilator (7) Electrolyte abnormality: Code(s): E87.8 - Other disorders of electrolyte and fluid balance, not elsewhere classified Status: Acute Assessment and Plan: Will replace electrolytes as needed Plan 61-year-old male presented to emergency department with shortness of breath is found to have a multifocal pneumonia and influenza A with a past medical history of emphysema and COPD patient went into respiratory distress suspect most likely secondary to alcohol withdrawal and patient was intubated currently patient in ICU on ventilator, for pneumonia patient has been treated cefepime, doxycycline and vancomycin, patient clinical symptoms stable, today patient was seen by [facility] and had bronchoscopy which showed pneumonia, and further recommendation. Subjective Date/time seen: 12/16/24 15:26 Interval history: 61-year-old male presented to emergency department with shortness of breath is found to have a multifocal pneumonia and influenza A with a past medical history of emphysema and COPD patient went into respiratory distress suspect most likely secondary to alcohol withdrawal and patient was intubated currently patient in ICU on ventilator, for pneumonia patient has been treated cefepime, doxycycline and vancomycin, patient clinical symptoms stable, today patient was seen by [facility] and had bronchoscopy which showed pneumonia, and further recommendation. Review of Systems Review of Systems: ROS unobtainable: Yes unobtainable due to endotracheal tube Exam Narrative: Patient is comfortable, NAD HEENT: ET tube in place LUNGS: Bilateral fair entry with rhonchi HEART: RR S1S2 ABD: BS+, Soft and nontender Lower extremities: no edema SKIN: nonjaundiced Neuro: grossly intact. Objective Data Vital Signs Vital Signs: Vital Signs - 24 hr 12/15/24 15:47 12/15/24 15:47 12/15/24 16:00 Temperature 37.1 C Pulse Rate 77 77 94 Respiratory Rate 20 20 17 Blood Pressure 136/81 Pulse Oximetry 96 Oxygen Delivery Fraction of Inspired Oxygen 12/15/24 16:00 12/15/24 16:00 12/15/24 16:00 Temperature Pulse Rate 94 Respiratory Rate 17 Blood Pressure Pulse Oximetry Oxygen Delivery Mechanical Ventilation Fraction of Inspired Oxygen 35 35 12/15/24 16:00 12/15/24 16:02 12/15/24 16:02 Temperature Pulse Rate 94 78 78 Respiratory Rate 20 20 Blood Pressure Pulse Oximetry Oxygen Delivery Fraction of Inspired Oxygen 12/15/24 17:03 12/15/24 17:45 12/15/24 18:00 Temperature Pulse Rate 85 94 76 Respiratory Rate 17 Blood Pressure Pulse Oximetry 95 Oxygen Delivery Mechanical Ventilation Fraction of Inspired Oxygen 30 12/15/24 18:00 12/15/24 18:00 12/15/24 18:00 Temperature Pulse Rate 79 79 79 Respiratory Rate 20 20 20 Blood Pressure 115/68 Pulse Oximetry 93 Oxygen Delivery Fraction of Inspired Oxygen 12/15/24 20:00 12/15/24 20:00 12/15/24 20:00 Temperature 37.1 C Pulse Rate 72 71 Respiratory Rate 20 Blood Pressure 115/70 Pulse Oximetry 96 Oxygen Delivery Mechanical Ventilation Fraction of Inspired Oxygen 35 12/15/24 20:00 12/15/24 20:00 12/15/24 20:09 Temperature Pulse Rate 72 74 Respiratory Rate 20 20 Blood Pressure Pulse Oximetry Oxygen Delivery Fraction of Inspired Oxygen 35 12/15/24 20:09 12/15/24 20:16 12/15/24 20:42 Temperature Pulse Rate 71 73 80 Respiratory Rate 20 20 Blood Pressure Pulse Oximetry 97 Oxygen Delivery Mechanical Ventilation Fraction of Inspired Oxygen 30 12/15/24 20:55 12/15/24 20:58 12/15/24 22:00 Temperature Pulse Rate 80 81 62 Respiratory Rate 20 Blood Pressure Pulse Oximetry Oxygen Delivery Fraction of Inspired Oxygen 12/15/24 22:00 12/15/24 22:00 12/15/24 22:00 Temperature Pulse Rate 70 71 71 Respiratory Rate 20 20 20 Blood Pressure 118/75 Pulse Oximetry 96 Oxygen Delivery Fraction of Inspired Oxygen 12/16/24 00:00 12/16/24 00:00 12/16/24 00:00 Temperature Pulse Rate 66 Respiratory Rate Blood Pressure Pulse Oximetry Oxygen Delivery Mechanical Ventilation Fraction of Inspired Oxygen 35 35 12/16/24 00:00 12/16/24 00:00 12/16/24 00:00 Temperature 36.7 C Pulse Rate 62 62 62 Respiratory Rate 20 20 20 Blood Pressure 114/72 Pulse Oximetry Oxygen Delivery Fraction of Inspired Oxygen 12/16/24 01:27 12/16/24 01:27 12/16/24 02:00 Temperature Pulse Rate 60 60 60 Respiratory Rate 20 20 Blood Pressure Pulse Oximetry Oxygen Delivery Fraction of Inspired Oxygen 12/16/24 02:00 12/16/24 02:00 12/16/24 02:00 Temperature Pulse Rate 60 60 60 Respiratory Rate 20 20 20 Blood Pressure 111/70 Pulse Oximetry 95 Oxygen Delivery Fraction of Inspired Oxygen 12/16/24 02:03 12/16/24 02:03 12/16/24 02:18 Temperature Pulse Rate 59 L 60 60 Respiratory Rate 20 20 Blood Pressure Pulse Oximetry 95 Oxygen Delivery Mechanical Ventilation Fraction of Inspired Oxygen 30 12/16/24 04:00 12/16/24 04:00 12/16/24 04:00 Temperature 36.2 C L Pulse Rate 61 61 Respiratory Rate 20 20 Blood Pressure 127/73 Pulse Oximetry 97 Oxygen Delivery Fraction of Inspired Oxygen 30 12/16/24 04:00 12/16/24 04:00 12/16/24 04:00 Temperature Pulse Rate 61 60 Respiratory Rate 20 Blood Pressure Pulse Oximetry Oxygen Delivery Mechanical Ventilation Fraction of Inspired Oxygen 35 12/16/24 04:18 12/16/24 04:43 12/16/24 05:00 Temperature Pulse Rate 80 80 86 Respiratory Rate 20 20 Blood Pressure Pulse Oximetry 97 Oxygen Delivery Mechanical Ventilation Fraction of Inspired Oxygen 30 12/16/24 05:23 12/16/24 05:23 12/16/24 06:00 Temperature Pulse Rate 80 80 90 Respiratory Rate 21 H 21 H Blood Pressure Pulse Oximetry Oxygen Delivery Fraction of Inspired Oxygen 12/16/24 06:00 12/16/24 06:03 12/16/24 06:03 Temperature Pulse Rate 90 90 90 Respiratory Rate 18 18 18 Blood Pressure 158/87 H Pulse Oximetry 98 Oxygen Delivery Fraction of Inspired Oxygen 12/16/24 08:00 12/16/24 08:00 12/16/24 08:00 Temperature 37.0 C Pulse Rate 71 71 Respiratory Rate 18 20 Blood Pressure 103/65 Pulse Oximetry 93 93 Oxygen Delivery Mechanical Ventilation Fraction of Inspired Oxygen 30 30 12/16/24 08:00 12/16/24 08:00 12/16/24 08:28 Temperature Pulse Rate 71 71 67 Respiratory Rate 20 20 Blood Pressure Pulse Oximetry 94 Oxygen Delivery Mechanical Ventilation Fraction of Inspired Oxygen 30 12/16/24 08:28 12/16/24 08:37 12/16/24 08:59 Temperature Pulse Rate 67 67 71 Respiratory Rate 20 20 Blood Pressure Pulse Oximetry Oxygen Delivery Fraction of Inspired Oxygen 12/16/24 09:28 12/16/24 09:28 12/16/24 10:00 Temperature Pulse Rate 70 70 62 Respiratory Rate 20 20 20 Blood Pressure Pulse Oximetry Oxygen Delivery Fraction of Inspired Oxygen 12/16/24 10:00 12/16/24 10:00 12/16/24 10:43 Temperature Pulse Rate 62 62 58 L Respiratory Rate 20 20 Blood Pressure 103/67 Pulse Oximetry 94 94 Oxygen Delivery Mechanical Ventilation Fraction of Inspired Oxygen 30 12/16/24 12:00 12/16/24 12:00 12/16/24 12:00 Temperature Pulse Rate 67 67 67 Respiratory Rate 20 20 20 Blood Pressure Pulse Oximetry 100 Oxygen Delivery Mechanical Ventilation Fraction of Inspired Oxygen 30 12/16/24 12:00 12/16/24 12:00 12/16/24 13:00 Temperature 36.9 C Pulse Rate 67 68 Respiratory Rate 20 20 Blood Pressure 122/72 Pulse Oximetry 100 Oxygen Delivery Fraction of Inspired Oxygen 30 12/16/24 13:00 12/16/24 13:57 12/16/24 13:57 Temperature Pulse Rate 68 65 65 Respiratory Rate 20 21 H Blood Pressure Pulse Oximetry 96 Oxygen Delivery Mechanical Ventilation Fraction of Inspired Oxygen 30 12/16/24 14:10 Temperature Pulse Rate 67 Respiratory Rate 23 H Blood Pressure Pulse Oximetry Oxygen Delivery Fraction of Inspired Oxygen Intake/Output Intake/Output: Intake & Output 12/13/24 12/14/24 12/15/24 12/16/24 23:59 23:59 23:59 23:59 Intake Total 2657.8 2930.4 3988.9 2651.2 Output Total 9501 352 2012 550 Balance 1582.8 2105.4 1713.9 2101.2 Meds/Results Medications: Active Medications Generic Name Dose Route Start Last Admin Trade Name Freq PRN Reason Stop Dose Admin Acetaminophen 650 mg 12/11/24 07:58 Acetaminophen 325 Mg Tablet PO Q4H PRN Mild Pain (1-3) or Fever Albuterol 2 puff 12/11/24 00:26 Albuterol Sulfate (*Sp) Aerosol 1 Puff INHALATION QIDRT PRN shortness of breath or wheezing Albuterol/Ipratropium 3 ml 12/11/24 02:00 12/16/24 13:57 Ipratropium 0.5 Mg/Albuterol Sulfate 2.5 Mg Ampul.Neb 3 Ml INHALATION 3 ml Q6HRT SANTIAGO Administration Alteplase, Recombinant 2 mg 12/16/24 09:59 12/16/24 12:52 Alteplase 2 Mg Vial (Cathflo) IV PUSH 2 mg ONCE PRN Administration Line Occlusion Amlodipine Besylate 10 mg 12/11/24 09:00 12/12/24 08:39 Amlodipine Besylate 10 Mg Tablet PO Not Given DAILY SANTIAGO Chlordiazepoxide HCl 50 mg 12/11/24 06:00 12/11/24 05:04 Chlordiazepoxide (*Crx) 25 Mg Capsule PO 50 mg Q6HR SANTIAGO Administration Dextrose 12.5 gm 12/11/24 11:48 Dextrose 50% 25 Gm/50 Ml Syringe IV PUSH PRN PRN Hypoglycemia Protocol Enoxaparin Sodium 40 mg 12/13/24 09:00 12/16/24 08:59 Enoxaparin 40 Mg/0.4 Ml Syringe SUB-Q 40 mg DAILY SANTIAGO Administration Fentanyl Citrate 50 mcg 12/12/24 23:31 12/13/24 18:12 Fentanyl Citrate Inj (*Crx) 100 Mcg/2 Ml Vial IV PUSH 50 mcg Q2H PRN Administration AGITATION WHILE ON VENT Folic Acid 1 mg 12/11/24 09:00 12/16/24 08:59 Folic Acid 1 Mg/0.2 Ml Inj IV PUSH 1 mg QAM SANTIAGO Administration Glucagon 1 mg 12/11/24 11:48 Glucagon For Inj 1 Mg Vial IM PRN PRN Hypoglycemia Protocol Glucose 15 gm 12/11/24 11:48 Glucose Oral Gel 15 Gm Of Glucse In 37.5 Gm Tube PO PRN PRN Hypoglycemia Protocol Dextrose 1,000 mls @ 100 mls/hr 12/11/24 11:48 Dextrose 5% 1,000 Ml IVPB PRN PRN Hypoglycemia Protocol Propofol 100 mls @ 21.45 mls/hr 12/12/24 09:55 12/16/24 13:00 Diprivan IV CONT 50 mcg/kg/min .Q4H40M SANTIAGO 21.45 mls/hr Administration Protocol 50 MCG/KG/MIN Doxycycline Hyclate 100 mg in 100 mls @ 100 mls/hr 12/12/24 11:00 12/16/24 12:57 Vibramycin 100 Mg/Ns 100 Ml IVPB 12/17/24 10:59 Infused Q12H SANTIGAO Infusion Fentanyl Citrate 2,500 mcg in 250 mls @ 20 mls/hr 12/13/24 08:15 12/16/24 12:00 Fentanyl 2,500 Mcg/Ns 250 Ml IV CONT 200 mcg/hr .[id number] SANTIAGO 20 mls/hr Titration Protocol 200 MCG/HR Vancomycin HCl 1,500 mg in 500 mls @ 250 mls/hr 12/16/24 01:00 12/16/24 02:00 Vancomycin 1,500 Mg/Ns 500 Ml IVPB Infused Q24H SANTIAGO Infusion Meropenem 1 gm in 100 mls @ 200 mls/hr 12/16/24 13:00 12/16/24 12:45 IVPB 200 mls/hr Q8HR SANTIAGO Administration Levalbuterol HCl 0.63 mg 12/11/24 09:00 Levalbuterol Neb 1.25 Mg/3 Ml INHALATION Q6HRT PRN Dryness Lorazepam 2 mg 12/11/24 04:19 12/12/24 01:57 Lorazepam Inj (*Crx) 2 Mg/Ml Vial IV PUSH 2 mg Q4H PRN Administration CIWA >8 Metoprolol Tartrate 5 mg 12/12/24 01:00 12/12/24 08:41 Metoprolol Tartrate Inj 5 Mg/5 Ml Vial IV PUSH 5 mg Q4H SANTIAGO Administration Metoprolol Tartrate 25 mg 12/13/24 21:00 12/16/24 08:59 Metoprolol Tartrate 25 Mg Tablet PO 25 mg Q12HR SANTIAGO Administration Multi-Ingred Cream/Lotion/Oil/Oint 1 applic 12/12/24 21:00 12/16/24 09:15 Mineral Oil/White Petrolatum Ointment EACH EYE 1 applic Q12HR SANTIAGO Administration Ondansetron HCl 4 mg 12/11/24 04:19 Ondansetron Inj 4 Mg/2 Ml Vial IV PUSH Q6H PRN Nausea And Vomiting Oseltamivir Phosphate 75 mg 12/12/24 21:00 12/16/24 08:59 Oseltamivir Phosphate Oral Susp 75 Mg/12.5 Ml Syringe PO 12/17/24 20:59 75 mg Q12HR SANTIAGO Administration Pantoprazole Sodium 40 mg 12/13/24 09:00 12/16/24 08:58 Pantoprazole Sodium Iv 40 Mg Vial IV PUSH 40 mg QAM SANTIAGO Administration Polyethylene Glycol 17 gm 12/16/24 10:22 12/16/24 12:53 Polyethylene Glycol 3350 17 Gm Powd.Pack PO 17 gm QAM SANTIAGO Administration Senna/Docusate Sodium 1 tab 12/16/24 21:00 Senna/Docusate Sodium Tablet PO HS SANTIAGO Sodium Chloride 20 ml 12/12/24 11:00 Central Line Flush IV PUSH PRN PRN after blood draws Sodium Chloride 10 ml 12/12/24 11:00 Central Line Flush IV PUSH PRN PRN with TPN bag changes Sodium Chloride 10 ml 12/13/24 14:00 12/16/24 12:57 Central Line Flush IV PUSH 10 ml Q8HR SANTIAGO Administration Sodium Chloride 20 ml 12/13/24 12:24 Central Line Flush IV PUSH PRN PRN after blood draws Thiamine HCl 100 mg 12/11/24 09:00 12/16/24 08:58 Thiamine Hcl 200 Mg/2 Ml Vial IV PUSH 100 mg QAM SANTIAGO Administration Radiology Results: ITS Impressions Chest CTA 12/10/24 19:15 IMPRESSION: No pulmonary embolism. No aortic dissection. Multifocal pneumonia. Abdomen X-Ray 12/12/24 10:23 IMPRESSION: 1. Nasogastric tube tip in the stomach. Chest CT 12/15/24 16:37 IMPRESSION: Endotracheal tube, left IJ central venous line, NG tube, all in good position. Pulmonary opacities likely representing worsening atypical/viral infection. Small cavitary lesions noted in the right upper lobe. A component of aspiration could be considered given the presence of airway secretions/debris. Trace bilateral pleural effusions. Ascending aortic ectasia. Chest X-Ray 12/16/24 12:22 IMPRESSION: 1. No change in diffuse bilateral lung disease consistent with pneumonia. Labs Labs: Laboratory Results - last 24 hr 12/15/24 12/16/24 12/16/24 18:08 01: 04:07 WBC 6.5 RBC 2.84 L Hgb 9.5 L Hct 29.7 L MCV 104.6 H MCH 33.5 MCHC 32.0 RDW 14.9 H Plt Count 291 MPV 10.5 H Immature Gran % (Auto) 1.4 H Neut % (Auto) 71.3 Lymph % (Auto) 14.5 L [place] % (Auto) 10.0 H Eos % (Auto) 2.6 Baso % (Auto) 0.2 Lymph # (Auto) 0.94 [place] # (Auto) 0.7 H Eos # (Auto) 0.2 Baso # (Auto) 0.0 Abs Immat Gran (auto) 0.09 H Absolute Neuts (auto) 4.6 Absolute Nucleated RBC 0.000 Nucleated RBC % 0.0 Puncture Site ABG pH ABG pCO2 ABG pO2 ABG PO2/FiO2 Ratio ABG HCO3 ABG O2 Saturation ABG O2 Content ABG Base Excess A-a Gradient Oxyhemoglobin Carboxyhemoglobin Methemoglobin Reduced Hemoglobin Total Hemoglobin O2 Delivery Device O2 Liters/Min Minute Volume Vent Rate Vent Mode FiO2 Tidal Volume PEEP Peak Inspir Pressure Pressure Support Sodium 147 H Potassium 4.0 Chloride 114 H Carbon Dioxide 30 Anion Gap 3 L BUN 38 H Creatinine 1.30 Estim Creat Clear Calc 55 Estimated GFR 56 L Glucose 108 POC Capillary Glucose 99 98 Calcium 7.9 L Phosphorus Cancelled Magnesium Total Bilirubin AST ALT Alkaline Phosphatase Total Protein Albumin Triglycerides 12/16/24 12/16/24 12/16/24 04:07 04:07 05:05 WBC RBC Hgb Hct MCV MCH MCHC RDW Plt Count MPV Immature Gran % (Auto) Neut % (Auto) Lymph % (Auto) [place] % (Auto) Eos % (Auto) Baso % (Auto) Lymph # (Auto) [place] # (Auto) Eos # (Auto) Baso # (Auto) Abs Immat Gran (auto) Absolute Neuts (auto) Absolute Nucleated RBC Nucleated RBC % Puncture Site Right radial ABG pH 7.345 L ABG pCO2 45.1 H ABG pO2 75.3 L ABG PO2/FiO2 Ratio 2.51 ABG HCO3 24.1 ABG O2 Saturation 94.4 L ABG O2 Content 15.2 L ABG Base Excess -1.7 A-a Gradient 85.6 Oxyhemoglobin 93.9 Carboxyhemoglobin 0.9 Methemoglobin 0.1 Reduced Hemoglobin 5.1 H Total Hemoglobin 11.5 L O2 Delivery Device Ventilator O2 Liters/Min Not Reportable Minute Volume Not Reportable Vent Rate 20 Vent Mode Cmv FiO2 30 Tidal Volume 480 PEEP 8 Peak Inspir Pressure Not Reportable Pressure Support Not Reportable Sodium Potassium Chloride Carbon Dioxide Anion Gap BUN Creatinine Estim Creat Clear Calc Estimated GFR Glucose POC Capillary Glucose Calcium Phosphorus 3.8 Magnesium Cancelled 1.8 Total Bilirubin 0.5 AST 30 ALT 22 Alkaline Phosphatase 63 Total Protein 6.0 L Albumin 2.4 L Triglycerides 217 H 12/16/24 12:43 WBC RBC Hgb Hct MCV MCH MCHC RDW Plt Count MPV Immature Gran % (Auto) Neut % (Auto) Lymph % (Auto) [place] % (Auto) Eos % (Auto) Baso % (Auto) Lymph # (Auto) [place] # (Auto) Eos # (Auto) Baso # (Auto) Abs Immat Gran (auto) Absolute Neuts (auto) Absolute Nucleated RBC Nucleated RBC % Puncture Site ABG pH ABG pCO2 ABG pO2 ABG PO2/FiO2 Ratio ABG HCO3 ABG O2 Saturation ABG O2 Content ABG Base Excess A-a Gradient Oxyhemoglobin Carboxyhemoglobin Methemoglobin Reduced Hemoglobin Total Hemoglobin O2 Delivery Device O2 Liters/Min Minute Volume Vent Rate Vent Mode FiO2 Tidal Volume PEEP Peak Inspir Pressure Pressure Support Sodium Potassium Chloride Carbon Dioxide Anion Gap BUN Creatinine Estim Creat Clear Calc Estimated GFR Glucose POC Capillary Glucose 83 Calcium Phosphorus Magnesium Total Bilirubin AST ALT Alkaline Phosphatase Total Protein Albumin Triglycerides
[2024-12-16 18:15] LABS: Glucose Point of Care 116 mg/dl (65-105)
[2024-12-16] MEDS: SENNA/DOCUSATE SODIUM TABLET 1 TAB PO (20:26)
[2024-12-17] VITALS (54 sets, daily range): BP systolic 112–159; BP diastolic 65–91; PULSE 67–160; RESP 18–40; TEMP 36.7–37.5; O2SAT 91–100
[2024-12-17] MEDS: fentaNYL CITRATE INJ (*CRX) 100 MCG/2 ML VIAL 50 MCG IV PUSH (00:35)
[2024-12-17 01:05] LABS: Vancomycin Trough 21.4 ug/mL (10.0-20.0)
[2024-12-17] MEDS: IPRATROPIUM 0.5 MG/ALBUTEROL SULFATE 2.5 MG AMPUL.NEB 3 ML INHALATION ×4 (01:50→20:48)
[2024-12-17] MEDS: PROPOFOL IV EMULSION 100 ML 21.45 MG IV CONT ×5 (02:30→21:36)
[2024-12-17] MEDS: VANCOMYCIN 1,250 MG/NS 250 ML 1,250 MG/250 ML BAG 166.67 MG IVPB (03:16)
[2024-12-17 04:12] LABS: Basophils Percent Auto 0.1 % (0.2-1.2); Eosinophils Absolute Auto 0.2 K/mm3 (0-0.3); Eosinophils Percent Auto 2.6 % (0-4.4); Hematocrit 30.7 % (42.0-52.0); Hemoglobin 9.9 g/dL (14.0-18.0); Immature Granulocyte Absolute 0.15 K/mm3 (0.00-0.031); Immature Granulocyte Percent A 2.2 % (0-0.5); Lymphocytes Absolute Auto 0.74 K/mm3 (0.9-3.2); Lymphocytes Percent Auto 10.7 % (18.3-44.2); Mean Corpuscular HGB Conc 32.2 g/dl (32-36); Mean Corpuscular Hemoglobin 33.6 pg (26-34); Mean Corpuscular Volume 104.1 fl (80-100); Mean Platelet Volume 10.1 fl (7.4-10.4); Monocytes Absolute Auto 0.7 K/mm3 (0.1-0.6); Monocytes Percent Auto 10.7 % (2.6-8.5); Neutrophils Absolute Auto 5.1 K/mm3 (1.3-6.7); Neutrophils Percent Auto 73.7 % (45.5-73.1); Platelet Count Result 286 k/mm3 (150-375); Red Blood Count 2.95 M/mm3 (4.6-6.20); Red Cell Distribution Width 14.8 % (11.5-14.5); White Blood Count 6.9 K/mm3 (4.5-10.0)
[2024-12-17 04:24] LABS: Alanine Aminotransferase 19 U/L (6-50); Albumin Level 2.6 g/dL (3.5-5.1); Alkaline Phosphatase 74 U/L (38-126); Anion Gap 3 mmol/L (4-12); Aspartate Amino Transferase 28 U/L (17-59); Bilirubin,Total 0.5 mg/dL (0.2-1.3); Blood Urea Nitrogen 44 mg/dL (9-20); Calcium 8.4 mg/dL (8.4-10.2); Carbon Dioxide 30 mmol/L (22-30); Chloride 114 mmol/L (98-107); Estimated CRCL calculation 50 ml/min; Estimated Glomerular Filt Rate 50; Glucose 111 mg/dL (65-110); Magnesium 2.1 mg/dL (1.6-2.3); Phosphorus 4.4 mg/dL (2.5-4.5); Potassium 4.6 mmol/L (3.4-5.0); Sodium 147 mmol/L (137-145)
[2024-12-17 04:51] LABS: Alveolar/Arterial O2 Gradient 88.5 mmHg; Arterial Blood Gas Ventilator rate 20 /MIN; Base Excess ABG -2.9 mEq/l (+/-2.0); Carboxyhemoglobin 0.5 % THb (0-2.0); Device VENTILATOR; Fractional Inspired Oxygen 30 %; HCO3 ABG 22.4 mEq/l (22.0-26.0); Modified Allen's Test Pass; Oxygen Content ABG 14.7 %vol (16.0-22.0); Oxygen Saturation ABG 94.8 % (95.0-100.0); Oxyhemoglobin 94.7 % THb (90.0-100.0); PCO2 ABG 41.3 mmHg (35.0-45.0); PO2 ABG 76.9 mmHg (80.0-100.0); PO2 FiO2 Ratio Arterial Blood 2.56 %; Reduced Hemoglobin 4.8 %THb (0-5.0); Site Drawn RIGHT RADIAL; pH ABG 7.353 (7.350-7.450)
[2024-12-17 04:52] LABS: Arterial Blood Gas PEEP 8 cmH2O; Arterial Blood Gas Tidal Volume 480 ml; Arterial Blood Gas Vent Mode CMV
[2024-12-17 05:17] LABS: Glucose Point of Care 111 mg/dl (65-105)
[2024-12-17] MEDS: MEROPENEM 1 GM/NS 100 ML 1 GM/100 ML BAG IVPB ×3 (05:23→21:20)
[2024-12-17] MEDS: CENTRAL LINE FLUSH 10 ML IV PUSH ×3 (05:23→20:44)
[2024-12-17 06:20] LABS: Glucose Point of Care 98 mg/dl (65-105)
[2024-12-17] MEDS: FENTANYL 2,500MCG/NS250ML(*CRX 2,500 MCG/250 ML BAG 20 MCG IV CONT (06:31)
[2024-12-17] MEDS: polyethylene glycoL 3350 17 GM POWD.PACK PO (08:44)
[2024-12-17] MEDS: METOPROLOL TARTRATE 25 MG TABLET PO ×2 (08:44→20:44)
[2024-12-17] MEDS: PANTOPRAZOLE SODIUM IV 40 MG VIAL IV PUSH (08:48)
[2024-12-17] MEDS: FOLIC ACID 1 MG/0.2 ML INJ IV PUSH (08:48)
[2024-12-17] MEDS: OSELTAMIVIR PHOSPHATE ORAL SUSP 75 MG/12.5 ML SYRINGE PO (08:48)
[2024-12-17] MEDS: ENOXAPARIN 40 MG/0.4 ML SYRINGE SUB-Q (08:49)
[2024-12-17] MEDS: THIAMINE HCL 200 MG/2 ML VIAL 100 MG IV PUSH (08:49)
[2024-12-17] MEDS: MINERAL OIL/WHITE PETROLATUM OINTMENT 1 APPLIC EACH EYE ×2 (08:49→20:44)
[2024-12-17] MEDS: ALBUMIN HUMAN 5% 25 GM/500 ML BTL IV CONT (08:57)
[2024-12-17 09:33] LABS: Creatine Kinase 41 U/L (55-170)
[2024-12-17 09:43] LABS: Device VENTILATOR
[2024-12-17 09:44] LABS: Arterial Blood Gas PEEP 8 cmH2O; Arterial Blood Gas Tidal Volume 480 ml; Arterial Blood Gas Vent Mode CMV; Arterial Blood Gas Ventilator rate 28 /MIN
[2024-12-17] MEDS: DEXTROSE 5%/0.45% SOD CHL 1,000 ML 100 ML IV CONT (10:00)
--- NOTE | 2024-12-17 11:36 | PCNFU ---
Nutrition Follow-Up Complete: Suboptimal Nutrition as related to mechanical ventilation as evidenced by NPO. Goal: Meet estimated nutritional needs. Patient will continue current goal. Pt current nutrition is Vital AF 1.2 at 50 ml/hr. Last recorded weight is 70 kg, stable Bowel Motility:No BM at this time Labs Reviewed:Glu 111, BUN 44, GFR 50, NA 147, Alb 2.6 Meds Noted:Protonix, Thiamine, Folic Acid, Tamiflu , Miralax, Senokot Skin: WNL Additional Notes:Patient remains on mechanical vent. Tube feedings are being tolerated of Vital AF 1.2 at 50 ml/hr. Propofol and Fentanyl are currently on hold for sedation holiday. Discussed tube feedings rates with [employer] today. At this time plan is to leave patient at 50 ml/hr of Vital AF 1.2. Total Nutrition: 1320 kcal/83 gm protein/892 ml water. Meeting 77% kcal needs at 25 kcal/kg and 100% protein needs at 1.2 gm/kg. Flush 100 ml q 4 hours. Will monitor in ICU rounds and reassess weight, labs, skin, diet orders, meds every Monday and Monday.
[2024-12-17 11:48] LABS: Glucose Point of Care 151 mg/dl (65-105)
[2024-12-17] MEDS: ALBUMIN HUMAN 25% 25 GM/100 ML 100 ML IVPB ×2 (12:05→18:05)
--- NOTE | 2024-12-17 12:34 | P.PNINT_ITS ---
Progress Note: A&P Assessment and Plan (1) Acute respiratory failure: Code(s): J96.00 - Acute respiratory failure, unspecified whether with hypoxia or hypercapnia Status: Acute Assessment and Plan: 12/12: Acute respiratory failure/impending respiratory failure likely related to altered mentation secondary to alcohol withdrawal, respiratory distress due to pneumonia and influenza A, COPD/emphysema -12/12: Intubated in the ICU -currently on CMV mode of ventilation, peep of 8 and 30% FiO2, -continue bronchodilators given history of COPD -Sedated with propofol and fentanyl infusion, maintain RASS of 0 to -2, daily SBT and SAT -12/15: chest x-rays have not been improving so opted to obtain chest CT which is as under -12/16: Consulted pulmonology and patient had bronchoscopy. Culture sent -antibiotic and antiviral as below -sedation holiday was performed and patient placed on 5/8 PSV but patient became tachypneic with respiratory rate in 30s and failed his trial. -12/15: Repeat CT chest: IMPRESSION: Endotracheal tube, left IJ central venous line, NG tube, all in good position. Pulmonary opacities likely representing worsening atypical/viral infection. Small cavitary lesions noted in the right upper lobe. A component of aspiration could be considered given the presence of airway secretions/debris. Trace bilateral pleural effusions. Ascending aortic ectasia (2) Multifocal pneumonia: Code(s): J18.9 - Pneumonia, unspecified organism Status: Acute Assessment and Plan: 12/10: CT chest PE protocol was negative for PE, but showed bilateral multifocal pneumonia -chest x-ray also showed bilateral multifocal pneumonia -patient tested positive for influenza A 12/10: Blood cultures negative x2 12/12: Sputum cultures are negative 12/12: Nasal MRSA not detected -continue meropenem doxycycline, vancomycin (12/12) -continue Tamiflu (3) COPD with emphysema: Code(s): J43.9 - Emphysema, unspecified Status: Acute Assessment and Plan: History of COPD/emphysema See above (4) SVT (supraventricular tachycardia): Code(s): I47.10 - Supraventricular tachycardia, unspecified Status: Acute Assessment and Plan: Patient went into SVT on admission, appreciate cardiology evaluation and recommendation likely related to respiratory distress from pneumonia, influenza, alcohol withdrawal. -patient was started on metoprolol per tube by cardiology (12/13) -currently in sinus rhythm, rate controlled, patient does have intermittent SVTs which is short-lived Echo Summary 1. Complete two-dimensional, color flow and Doppler transthoracic echocardiogram is performed. 2. Technically difficult study with limited views as patient is supine, confused, and restrained with mittens. 3. Overall does appear to have normal biventricular size and systolic function. 4. There does not appear to be any significant valvular disease. (5) Alcohol withdrawal: Code(s): F10.939 - Alcohol use, unspecified with withdrawal, unspecified Status: Acute Assessment and Plan: Patient does have a history of significant alcohol use -in the IMU he had elevated CIWA score and received multiple doses of Ativan -12/12: when I evaluated the patient he was confused, tremulous, and was in alcohol withdrawal -currently intubated and sedated with propofol -add Precedex -continue thiamine and folic acid (6) Tobacco dependence: Code(s): F17.200 - Nicotine dependence, unspecified, uncomplicated Status: Acute Assessment and Plan: Will assistant counsel patient on cessation of tobacco use once he is off the ventilator (7) Electrolyte abnormality: Code(s): E87.8 - Other disorders of electrolyte and fluid balance, not elsewhere classified Status: Acute Assessment and Plan: Will replace electrolytes as needed (8) MICHELLE (acute kidney injury): Code(s): N17.9 - Acute kidney failure, unspecified Status: Acute Assessment and Plan: Increase in creatinine as compared to yesterday. Creatinine 1.4 Will give IV albumin and IV fluids Check CK level Monitor urine output electrolytes and creat Plan DVT prophylaxis: Lovenox Stress ulcer prophylaxis: Protonix Nutrition: Tolerating tube feeds Code Status: Full code Critical Care Time Spent: 32 minutes Due to a high probability of clinically significant, life threatening deterioration, the patient required my highest level of preparedness to intervene emergently and I personally spent this critical care time directly and personally managing the patient. This critical care time included obtaining a history; examining the patient; pulse oximetry; ordering and review of studies; arranging urgent treatment with development of a management plan; evaluation of patient's response to treatment; frequent reassessment; and discussions with other providers. It was exclusive of separately billable procedures and treating other patients and teaching time. Please see Assessment and Plan section and the rest of the note for further information on patient assessment and treatment This dictation may have been done utilizing a voice recognition system. Attempts have been made to correct errors. However, there may be uncorrected grammatical, spelling, and recognitions errors present. Subjective Date/time seen: 12/17/24 Overnight events reviewed. Afebrile Continues to be on mechanical ventilation 30% FiO2 Continues to be on vasopressors Continues to be sedated with fentanyl and propofol Tolerating tube feeds. Other Vitals acceptable Interval history: Reason for consult: Acute respiratory failure, pneumonia, influenza a, alcohol withdrawal, supraventricular tachycardia 12/16/2024: Patient seen and examined this morning in the ICU, remains intubated on CMV mode of ventilation, peep of 8, 30% FiO2. Sedated with propofol and fentanyl infusion. Patient does not open his eyes or follow simple commands. Urine output has been adequate, patient is afebrile and hemodynamically stable. Sodium levels remain 147 this morning. Patient did have episodes of SVTs intermittently overnight. Review of Systems Review of Systems: ROS unobtainable: Yes unobtainable due to endotracheal tube, unobtainable due to medical condition and unobtainable due to mental status Exam Narrative: General: Intubated and sedated, in no acute distress HEENT:? Pupils equal and reactive, sclera is clear Neck:? Supple Respiratory:? Coarse breath sounds bilaterally, rales on upper lobes bilaterally, decreased air entry at bases, no wheezing Cardiac:? S1-S2 is normal, regular rate and rhythm Abdomen:? Soft, nontender, nondistended, hypoactive bowel sound Extremities:? No edema, palpable pedal pulses Neuro:? Intubated and sedated, on loading sedation patient moved all 4 extremity but not follow any command Skin:? Warm and dry, bruising noted on bilateral upper and lower extremity Psych:? Unable to assess at this time Objective Data Vital Signs Vital Signs: Vital Signs - 24 hr 12/16/24 13:00 12/16/24 13:00 12/16/24 13:57 Temperature Pulse Rate 68 68 65 Respiratory Rate 20 20 Blood Pressure Pulse Oximetry 96 Oxygen Delivery Mechanical Ventilation Fraction of Inspired Oxygen 30 12/16/24 13:57 12/16/24 14:00 12/16/24 14:00 Temperature Pulse Rate 65 65 65 Respiratory Rate 21 H 18 20 Blood Pressure 103/69 Pulse Oximetry 97 Oxygen Delivery Fraction of Inspired Oxygen 12/16/24 14:00 12/16/24 14:00 12/16/24 14:10 Temperature Pulse Rate 65 65 67 Respiratory Rate 20 23 H Blood Pressure Pulse Oximetry Oxygen Delivery Fraction of Inspired Oxygen 12/16/24 16:00 12/16/24 16:00 12/16/24 16:00 Temperature 37.1 C Pulse Rate 84 84 Respiratory Rate 20 20 Blood Pressure 143/91 H Pulse Oximetry 98 98 Oxygen Delivery Mechanical Ventilation Fraction of Inspired Oxygen 30 30 12/16/24 16:00 12/16/24 16:00 12/16/24 16:00 Temperature Pulse Rate 84 84 84 Respiratory Rate 20 20 Blood Pressure Pulse Oximetry Oxygen Delivery Fraction of Inspired Oxygen 12/16/24 16:28 12/16/24 17:40 12/16/24 17:53 Temperature Pulse Rate 88 76 76 Respiratory Rate 20 20 Blood Pressure Pulse Oximetry 97 Oxygen Delivery Mechanical Ventilation Fraction of Inspired Oxygen 30 12/16/24 17:54 12/16/24 17:54 12/16/24 18:00 Temperature Pulse Rate 73 73 71 Respiratory Rate 20 20 18 Blood Pressure 109/76 Pulse Oximetry 95 Oxygen Delivery Fraction of Inspired Oxygen 12/16/24 18:00 12/16/24 20:00 12/16/24 20:00 Temperature 37.1 C Pulse Rate 71 72 72 Respiratory Rate 20 20 Blood Pressure 105/67 Pulse Oximetry 93 93 Oxygen Delivery Mechanical Ventilation Fraction of Inspired Oxygen 30 12/16/24 20:00 12/16/24 20:00 12/16/24 20:00 Temperature Pulse Rate 70 72 Respiratory Rate 20 Blood Pressure Pulse Oximetry Oxygen Delivery Fraction of Inspired Oxygen 30 12/16/24 20:00 12/16/24 20:05 12/16/24 20:05 Temperature Pulse Rate 72 71 71 Respiratory Rate 20 22 H Blood Pressure Pulse Oximetry 96 Oxygen Delivery Mechanical Ventilation Fraction of Inspired Oxygen 30 12/16/24 20:11 12/16/24 20:26 12/16/24 22:00 Temperature Pulse Rate 71 72 62 Respiratory Rate 20 20 Blood Pressure Pulse Oximetry Oxygen Delivery Fraction of Inspired Oxygen 12/16/24 22:00 12/16/24 22:00 12/16/24 22:00 Temperature Pulse Rate 62 70 70 Respiratory Rate 20 20 Blood Pressure 110/66 Pulse Oximetry 97 Oxygen Delivery Fraction of Inspired Oxygen 12/16/24 22:43 12/16/24 22:43 12/16/24 23:01 Temperature Pulse Rate 66 66 67 Respiratory Rate 20 20 Blood Pressure Pulse Oximetry 97 Oxygen Delivery Mechanical Ventilation Fraction of Inspired Oxygen 30 12/17/24 00:00 12/17/24 00:00 12/17/24 00:00 Temperature Pulse Rate 75 75 75 Respiratory Rate 20 20 20 Blood Pressure Pulse Oximetry 100 Oxygen Delivery Mechanical Ventilation Fraction of Inspired Oxygen 30 12/17/24 00:00 12/17/24 00:00 12/17/24 00:00 Temperature 36.7 C Pulse Rate 79 76 Respiratory Rate 20 Blood Pressure 145/80 H Pulse Oximetry 99 Oxygen Delivery Fraction of Inspired Oxygen 30 12/17/24 01:50 12/17/24 01:51 12/17/24 02:00 Temperature Pulse Rate 75 75 75 Respiratory Rate 23 H 20 Blood Pressure Pulse Oximetry 95 Oxygen Delivery Mechanical Ventilation Fraction of Inspired Oxygen 30 12/17/24 02:00 12/17/24 02:00 12/17/24 02:00 Temperature 36.9 C Pulse Rate 75 111 H 111 H Respiratory Rate 20 18 Blood Pressure 128/65 Pulse Oximetry 99 Oxygen Delivery Fraction of Inspired Oxygen 12/17/24 02:02 12/17/24 02:30 12/17/24 02:30 Temperature Pulse Rate 76 76 76 Respiratory Rate 21 H 20 20 Blood Pressure Pulse Oximetry Oxygen Delivery Fraction of Inspired Oxygen 12/17/24 04:00 12/17/24 04:00 12/17/24 04:00 Temperature 37.1 C Pulse Rate 85 85 85 Respiratory Rate 20 20 Blood Pressure 116/75 Pulse Oximetry 98 100 Oxygen Delivery Mechanical Ventilation Fraction of Inspired Oxygen 30 12/17/24 04:00 12/17/24 04:00 12/17/24 04:00 Temperature Pulse Rate 85 85 Respiratory Rate 20 20 Blood Pressure Pulse Oximetry Oxygen Delivery Fraction of Inspired Oxygen 30 12/17/24 04:53 12/17/24 06:00 12/17/24 06:00 Temperature Pulse Rate 75 73 73 Respiratory Rate 20 Blood Pressure 116/66 Pulse Oximetry 96 96 Oxygen Delivery Mechanical Ventilation Fraction of Inspired Oxygen 30 12/17/24 06:00 12/17/24 06:00 12/17/24 06:31 Temperature Pulse Rate 73 73 73 Respiratory Rate 20 20 21 H Blood Pressure Pulse Oximetry Oxygen Delivery Fraction of Inspired Oxygen 12/17/24 06:31 12/17/24 06:32 12/17/24 06:32 Temperature Pulse Rate 73 72 72 Respiratory Rate 21 H 20 20 Blood Pressure Pulse Oximetry Oxygen Delivery Fraction of Inspired Oxygen 12/17/24 08:00 12/17/24 08:00 12/17/24 08:00 Temperature 36.9 C Pulse Rate 68 68 Respiratory Rate 20 20 Blood Pressure 112/67 Pulse Oximetry 97 97 Oxygen Delivery Mechanical Ventilation Fraction of Inspired Oxygen 30 30 12/17/24 08:00 12/17/24 08:00 12/17/24 08:00 Temperature Pulse Rate 68 68 68 Respiratory Rate 20 20 Blood Pressure Pulse Oximetry Oxygen Delivery Fraction of Inspired Oxygen 12/17/24 08:00 12/17/24 08:01 12/17/24 08:01 Temperature Pulse Rate 69 68 68 Respiratory Rate 20 Blood Pressure Pulse Oximetry 97 Oxygen Delivery Mechanical Ventilation Fraction of Inspired Oxygen 30 12/17/24 08:12 12/17/24 08:44 12/17/24 08:45 Temperature Pulse Rate 70 81 74 Respiratory Rate 20 20 Blood Pressure Pulse Oximetry Oxygen Delivery Fraction of Inspired Oxygen 12/17/24 08:45 12/17/24 10:00 12/17/24 10:00 Temperature Pulse Rate 74 95 95 Respiratory Rate 20 23 H 23 H Blood Pressure Pulse Oximetry Oxygen Delivery Fraction of Inspired Oxygen 12/17/24 10:00 12/17/24 10:00 12/17/24 10:45 Temperature Pulse Rate 95 95 98 Respiratory Rate 23 H 20 Blood Pressure 158/87 H Pulse Oximetry 92 Oxygen Delivery Fraction of Inspired Oxygen 12/17/24 10:45 12/17/24 11:15 12/17/24 11:15 Temperature Pulse Rate 118 H Respiratory Rate 35 H Blood Pressure Pulse Oximetry Oxygen Delivery Fraction of Inspired Oxygen 30 30 12/17/24 11:20 12/17/24 11:25 12/17/24 11:30 Temperature Pulse Rate 160 H 125 H 123 H Respiratory Rate 40 H 38 H 32 H Blood Pressure Pulse Oximetry Oxygen Delivery Fraction of Inspired Oxygen 12/17/24 11:35 12/17/24 12:00 12/17/24 12:00 Temperature Pulse Rate 110 H 108 H 108 H Respiratory Rate 30 H 27 H 27 H Blood Pressure Pulse Oximetry Oxygen Delivery Fraction of Inspired Oxygen 12/17/24 12:00 12/17/24 12:00 12/17/24 12:00 Temperature 37.5 C Pulse Rate 108 H 117 H Respiratory Rate 27 H 27 H Blood Pressure 159/87 H Pulse Oximetry 91 95 Oxygen Delivery Mechanical Ventilation Fraction of Inspired Oxygen 30 30 12/17/24 12:00 12/17/24 12:07 Temperature Pulse Rate 112 H 117 H Respiratory Rate Blood Pressure Pulse Oximetry 95 Oxygen Delivery Mechanical Ventilation Fraction of Inspired Oxygen 30 Intake/Output Intake/Output: Intake & Output 12/14/24 12/15/24 12/16/24 12/17/24 23:59 23:59 23:59 23:59 Intake Total 2930.4 3988.9 3779.5 1824.0 Output Total 825 2275 1300 550 Balance 2105.4 1713.9 2479.5 1274.0 Meds/Results Medications: Active Medications Generic Name Dose Route Start Last Admin Trade Name Freq PRN Reason Stop Dose Admin Acetaminophen 650 mg 12/11/24 07:58 Acetaminophen 325 Mg Tablet PO Q4H PRN Mild Pain (1-3) or Fever Albuterol 2 puff 12/11/24 00:26 Albuterol Sulfate (*Sp) Aerosol 1 Puff INHALATION QIDRT PRN shortness of breath or wheezing Albuterol/Ipratropium 3 ml 12/11/24 02:00 12/17/24 07:57 Ipratropium 0.5 Mg/Albuterol Sulfate 2.5 Mg Ampul.Neb 3 Ml INHALATION 3 ml Q6HRT SANTIAGO Administration Alteplase, Recombinant 2 mg 12/16/24 09:59 12/16/24 16:31 Alteplase 2 Mg Vial (Cathflo) IV PUSH 2 mg ONCE PRN Administration Line Occlusion Amlodipine Besylate 10 mg 12/11/24 09:00 12/12/24 08:39 Amlodipine Besylate 10 Mg Tablet PO Not Given DAILY SANTIAGO Chlordiazepoxide HCl 50 mg 12/11/24 06:00 12/11/24 05:04 Chlordiazepoxide (*Crx) 25 Mg Capsule PO 50 mg Q6HR SANTIAGO Administration Dextrose 12.5 gm 12/11/24 11:48 Dextrose 50% 25 Gm/50 Ml Syringe IV PUSH PRN PRN Hypoglycemia Protocol Enoxaparin Sodium 40 mg 12/13/24 09:00 12/17/24 08:49 Enoxaparin 40 Mg/0.4 Ml Syringe SUB-Q 40 mg DAILY SANTIAGO Administration Fentanyl Citrate 50 mcg 12/12/24 23:31 12/17/24 00:35 Fentanyl Citrate Inj (*Crx) 100 Mcg/2 Ml Vial IV PUSH 50 mcg Q2H PRN Administration AGITATION WHILE ON VENT Folic Acid 1 mg 12/11/24 09:00 12/17/24 08:48 Folic Acid 1 Mg/0.2 Ml Inj IV PUSH 1 mg QAM SANTIAGO Administration Glucagon 1 mg 12/11/24 11:48 Glucagon For Inj 1 Mg Vial IM PRN PRN Hypoglycemia Protocol Glucose 15 gm 12/11/24 11:48 Glucose Oral Gel 15 Gm Of Glucse In 37.5 Gm Tube PO PRN PRN Hypoglycemia Protocol Dextrose 1,000 mls @ 100 mls/hr 12/11/24 11:48 Dextrose 5% 1,000 Ml IVPB PRN PRN Hypoglycemia Protocol Propofol 100 mls @ 21.45 mls/hr 12/12/24 09:55 12/17/24 12:00 Diprivan IV CONT 50 mcg/kg/min .Q4H40M SANTIAGO 21.45 mls/hr Titration Protocol 50 MCG/KG/MIN Fentanyl Citrate 2,500 mcg in 250 mls @ 0 mls/hr 12/13/24 08:15 12/17/24 12:00 Fentanyl 2,500 Mcg/Ns 250 Ml IV CONT 0 mcg/hr .Q0M SANTIAGO 0 mls/hr Titration Protocol 0 MCG/HR Meropenem 1 gm in 100 mls @ 200 mls/hr 12/16/24 13:00 12/17/24 06:00 IVPB Infused Q8HR SANTIAGO Infusion Vancomycin HCl 1,250 mg in 250 mls @ 166.667 mls/hr 12/18/24 03:00 Vancomycin 1,250 Mg/Ns 250 Ml IVPB Q24H SANTIAGO Albumin Human 100 mls @ 60 mls/hr 12/17/24 12:00 12/17/24 12:05 Albutein IVPB 12/18/24 07:39 60 mls/hr Q6HR SANTIAGO Administration Dextrose/Sodium Chloride 1,000 mls @ 100 mls/hr 12/17/24 10:00 12/17/24 10:00 Dextrose 5% Sodium Chloride 0.45% IV CONT 12/17/24 19:59 100 mls/hr .Q10H SANTIAGO Administration Levalbuterol HCl 0.63 mg 12/11/24 09:00 Levalbuterol Neb 1.25 Mg/3 Ml INHALATION Q6HRT PRN Dryness Lorazepam 2 mg 12/11/24 04:19 12/12/24 01:57 Lorazepam Inj (*Crx) 2 Mg/Ml Vial IV PUSH 2 mg Q4H PRN Administration CIWA >8 Metoprolol Tartrate 5 mg 12/12/24 01:00 12/12/24 08:41 Metoprolol Tartrate Inj 5 Mg/5 Ml Vial IV PUSH 5 mg Q4H SANTIAGO Administration Metoprolol Tartrate 25 mg 12/13/24 21:00 12/17/24 08:44 Metoprolol Tartrate 25 Mg Tablet PO 25 mg Q12HR SANTIAGO Administration Multi-Ingred Cream/Lotion/Oil/Oint 1 applic 12/12/24 21:00 12/17/24 08:49 Mineral Oil/White Petrolatum Ointment EACH EYE 1 applic Q12HR SANTIAGO Administration Ondansetron HCl 4 mg 12/11/24 04:19 Ondansetron Inj 4 Mg/2 Ml Vial IV PUSH Q6H PRN Nausea And Vomiting Oseltamivir Phosphate 75 mg 12/12/24 21:00 12/17/24 08:48 Oseltamivir Phosphate Oral Susp 75 Mg/12.5 Ml Syringe PO 12/17/24 20:59 75 mg Q12HR SANTIAGO Administration Pantoprazole Sodium 40 mg 12/13/24 09:00 12/17/24 08:48 Pantoprazole Sodium Iv 40 Mg Vial IV PUSH 40 mg QAM SANTIAGO Administration Polyethylene Glycol 17 gm 12/16/24 10:22 12/17/24 08:44 Polyethylene Glycol 3350 17 Gm Powd.Pack PO 17 gm QAM SANTIAGO Administration Senna/Docusate Sodium 1 tab 12/16/24 21:00 12/16/24 20:26 Senna/Docusate Sodium Tablet PO 1 tab HS SANTIAGO Administration Sodium Chloride 20 ml 12/12/24 11:00 Central Line Flush IV PUSH PRN PRN after blood draws Sodium Chloride 10 ml 12/12/24 11:00 Central Line Flush IV PUSH PRN PRN with TPN bag changes Sodium Chloride 10 ml 12/13/24 14:00 12/17/24 05:23 Central Line Flush IV PUSH 10 ml Q8HR SANTIAGO Administration Sodium Chloride 20 ml 12/13/24 12:24 Central Line Flush IV PUSH PRN PRN after blood draws Thiamine HCl 100 mg 12/11/24 09:00 12/17/24 08:49 Thiamine Hcl 200 Mg/2 Ml Vial IV PUSH 100 mg QAM SANTIAGO Administration Radiology Results: ITS Impressions Chest CTA 12/10/24 19:15 IMPRESSION: No pulmonary embolism. No aortic dissection. Multifocal pneumonia. Abdomen X-Ray 12/12/24 10:23 IMPRESSION: 1. Nasogastric tube tip in the stomach. Chest CT 12/15/24 16:37 IMPRESSION: Endotracheal tube, left IJ central venous line, NG tube, all in good position. Pulmonary opacities likely representing worsening atypical/viral infection. Small cavitary lesions noted in the right upper lobe. A component of aspiration could be considered given the presence of airway secretions/debris. Trace bilateral pleural effusions. Ascending aortic ectasia. Chest X-Ray 12/17/24 06:26 Impression: Stable patchy bilateral airspace disease. Correlate for bilateral pneumonia versus possibly pulmonary edema. Stable support tubes. Labs Labs: Laboratory Results - last 24 hr 12/13/24 12/16/24 12/16/24 04:53 12:43 17:53 WBC RBC Hgb Hct MCV MCH MCHC RDW Plt Count MPV Immature Gran % (Auto) Neut % (Auto) Lymph % (Auto) Louisa % (Auto) Eos % (Auto) Baso % (Auto) Lymph # (Auto) [place] # (Auto) Eos # (Auto) Baso # (Auto) Abs Immat Gran (auto) Absolute Neuts (auto) Absolute Nucleated RBC Nucleated RBC % Puncture Site Not Reportable ABG pH 7.455 H ABG pCO2 36.2 ABG pO2 55.4 L ABG PO2/FiO2 Ratio 1.85 ABG HCO3 24.9 ABG O2 Saturation 90.5 L ABG O2 Content 15.3 L ABG Base Excess 1.2 A-a Gradient 116.0 Oxyhemoglobin 89.3 L Carboxyhemoglobin 0.8 Methemoglobin 0.1 Reduced Hemoglobin 9.8 H Total Hemoglobin 12.2 O2 Delivery Device Ventilator O2 Liters/Min Not Reportable Minute Volume Not Reportable Vent Rate 28 Vent Mode Cmv FiO2 30 Tidal Volume 480 PEEP 8 Peak Inspir Pressure Not Reportable Pressure Support Not Reportable Sodium Potassium Chloride Carbon Dioxide Anion Gap BUN Creatinine Estim Creat Clear Calc Estimated GFR Glucose POC Capillary Glucose 83 116 H Calcium Phosphorus Magnesium Total Bilirubin AST ALT Alkaline Phosphatase Total Creatine Kinase Total Protein Albumin Vancomycin Trough 12/16/24 12/17/24 12/17/24 23:50 00:27 04:04 WBC 6.9 RBC 2.95 L Hgb 9.9 L Hct 30.7 L MCV 104.1 H MCH 33.6 MCHC 32.2 RDW 14.8 H Plt Count 286 MPV 10.1 Immature Gran % (Auto) 2.2 H Neut % (Auto) 73.7 H Lymph % (Auto) 10.7 L [place] % (Auto) 10.7 H Eos % (Auto) 2.6 Baso % (Auto) 0.1 L Lymph # (Auto) 0.74 L [place] # (Auto) 0.7 H Eos # (Auto) 0.2 Baso # (Auto) 0.0 Abs Immat Gran (auto) 0.15 H Absolute Neuts (auto) 5.1 Absolute Nucleated RBC 0.000 Nucleated RBC % 0.0 Puncture Site ABG pH ABG pCO2 ABG pO2 ABG PO2/FiO2 Ratio ABG HCO3 ABG O2 Saturation ABG O2 Content ABG Base Excess A-a Gradient Oxyhemoglobin Carboxyhemoglobin Methemoglobin Reduced Hemoglobin Total Hemoglobin O2 Delivery Device O2 Liters/Min Minute Volume Vent Rate Vent Mode FiO2 Tidal Volume PEEP Peak Inspir Pressure Pressure Support Sodium 147 H Potassium 4.6 Chloride 114 H Carbon Dioxide 30 Anion Gap 3 L BUN 44 H Creatinine 1.44 H Estim Creat Clear Calc 50 Estimated GFR 50 L Glucose 111 H POC Capillary Glucose 111 H Calcium 8.4 Phosphorus 4.4 Magnesium 2.1 Total Bilirubin 0.5 AST 28 ALT 19 Alkaline Phosphatase 74 Total Creatine Kinase 41 L Total Protein 6.0 L Albumin 2.6 L Vancomycin Trough 21.4 H 12/17/24 12/17/24 12/17/24 04:41 06:14 11:46 WBC RBC Hgb Hct MCV MCH MCHC RDW Plt Count MPV Immature Gran % (Auto) Neut % (Auto) Lymph % (Auto) [place] % (Auto) Eos % (Auto) Baso % (Auto) Lymph # (Auto) [place] # (Auto) Eos # (Auto) Baso # (Auto) Abs Immat Gran (auto) Absolute Neuts (auto) Absolute Nucleated RBC Nucleated RBC % Puncture Site Right radial ABG pH 7.353 ABG pCO2 41.3 ABG pO2 76.9 L ABG PO2/FiO2 Ratio 2.56 ABG HCO3 22.4 ABG O2 Saturation 94.8 L ABG O2 Content 14.7 L ABG Base Excess -2.9 A-a Gradient 88.5 Oxyhemoglobin 94.7 Carboxyhemoglobin 0.5 Methemoglobin 0.0 Reduced Hemoglobin 4.8 Total Hemoglobin 11.0 L O2 Delivery Device Ventilator O2 Liters/Min Not Reportable Minute Volume Not Reportable Vent Rate 20 Vent Mode Cmv FiO2 30 Tidal Volume 480 PEEP 8 Peak Inspir Pressure Not Reportable Pressure Support Not Reportable Sodium Potassium Chloride Carbon Dioxide Anion Gap BUN Creatinine Estim Creat Clear Calc Estimated GFR Glucose POC Capillary Glucose 98 151 H Calcium Phosphorus Magnesium Total Bilirubin AST ALT Alkaline Phosphatase Total Creatine Kinase Total Protein Albumin Vancomycin Trough Quality VTE Prophylaxis VTE prophylaxis: pharmacologic ordered
[2024-12-17] MEDS: dexmedeTOMIDine 400 MCG/100 ML 400 MCG/100 ML BAG IV CONT (13:02)
[2024-12-17 18:15] LABS: Glucose Point of Care 118 mg/dl (65-105)
[2024-12-17] MEDS: SENNA/DOCUSATE SODIUM TABLET 1 TAB PO (20:44)
[2024-12-17] MEDS: dexmedeTOMIDine 400 MCG/100 ML 400 MCG/100 ML BAG 14 MCG IV CONT (21:20)
[2024-12-18] VITALS (60 sets, daily range): BP systolic 122–141; BP diastolic 68–84; PULSE 62–94; RESP 18–32; TEMP 37–38.1; O2SAT 92–100
[2024-12-18] MEDS: ALBUMIN HUMAN 25% 25 GM/100 ML 100 ML IVPB ×2 (00:17→06:16)
[2024-12-18 00:29] LABS: Glucose Point of Care 105 mg/dl (65-105)
[2024-12-18] MEDS: VANCOMYCIN 1,250 MG/NS 250 ML 1,250 MG/250 ML BAG 166.67 MG IVPB (02:22)
[2024-12-18] MEDS: PROPOFOL IV EMULSION 100 ML 21.45 MG IV CONT ×6 (02:24→23:48)
[2024-12-18] MEDS: IPRATROPIUM 0.5 MG/ALBUTEROL SULFATE 2.5 MG AMPUL.NEB 3 ML INHALATION ×4 (02:28→20:21)
[2024-12-18] MEDS: dexmedeTOMIDine 400 MCG/100 ML 400 MCG/100 ML BAG 19.25 MCG IV CONT (03:27)
[2024-12-18 05:20] LABS: Alveolar/Arterial O2 Gradient 105.7 mmHg; Carboxyhemoglobin 0.8 % THb (0-2.0); Fractional Inspired Oxygen 30 %; HCO3 ABG 24.2 mEq/l (22.0-26.0); Oxygen Content ABG 17.1 %vol (16.0-22.0); Oxygen Saturation ABG 92.8 % (95.0-100.0); Oxyhemoglobin 91.9 % THb (90.0-100.0); PO2 ABG 63.6 mmHg (80.0-100.0); PO2 FiO2 Ratio Arterial Blood 2.12 %; Reduced Hemoglobin 7.3 %THb (0-5.0); Total Hemoglobin 13.2 g/dL (12.0-18.0); pH ABG 7.422 (7.350-7.450)
[2024-12-18 05:21] LABS: Device VENTILATOR; Modified Allen's Test Pass; Site Drawn RIGHT RADIAL
[2024-12-18 05:22] LABS: Arterial Blood Gas PEEP 8 cmH2O; Arterial Blood Gas Tidal Volume 480 ml; Arterial Blood Gas Vent Mode CMV; Arterial Blood Gas Ventilator rate 20 /MIN
[2024-12-18] MEDS: MEROPENEM 1 GM/NS 100 ML 1 GM/100 ML BAG IVPB ×3 (05:40→21:31)
[2024-12-18 05:41] LABS: Hematocrit 27.6 % (42.0-52.0); Mean Corpuscular HGB Conc 32.6 g/dl (32-36); Mean Corpuscular Hemoglobin 33.3 pg (26-34); Mean Corpuscular Volume 102.2 fl (80-100); Mean Platelet Volume 10.4 fl (7.4-10.4); Platelet Count Result 266 k/mm3 (150-375); Red Cell Distribution Width 14.3 % (11.5-14.5); White Blood Count 6.4 K/mm3 (4.5-10.0)
[2024-12-18] MEDS: CENTRAL LINE FLUSH 10 ML IV PUSH ×3 (05:41→21:31)
[2024-12-18 05:51] LABS: Triglycerides 156 mg/dL (<150)
[2024-12-18 05:53] LABS: Alanine Aminotransferase 17 U/L (6-50); Albumin Level 3.3 g/dL (3.5-5.1); Alkaline Phosphatase 74 U/L (38-126); Anion Gap 6 mmol/L (4-12); Aspartate Amino Transferase 31 U/L (17-59); Bilirubin,Total 0.6 mg/dL (0.2-1.3); Blood Urea Nitrogen 41 mg/dL (9-20); Calcium 8.5 mg/dL (8.4-10.2); Carbon Dioxide 27 mmol/L (22-30); Chloride 112 mmol/L (98-107); Estimated CRCL calculation 55 ml/min; Estimated Glomerular Filt Rate 60; Glucose 117 mg/dL (65-110); Magnesium 2.1 mg/dL (1.6-2.3); Phosphorus 3.4 mg/dL (2.5-4.5); Potassium 4.1 mmol/L (3.4-5.0); Sodium 145 mmol/L (137-145)
[2024-12-18] MEDS: dexmedeTOMIDine 400 MCG/100 ML 400 MCG/100 ML BAG 26.25 MCG IV CONT ×5 (08:05→22:50)
--- NOTE | 2024-12-18 09:03 | P.PNINT_ITS ---
Progress Note: A&P Assessment and Plan (1) Acute respiratory failure: Code(s): J96.00 - Acute respiratory failure, unspecified whether with hypoxia or hypercapnia Status: Acute Assessment and Plan: 12/12: Acute respiratory failure/impending respiratory failure likely related to altered mentation secondary to alcohol withdrawal, respiratory distress due to pneumonia and influenza A, COPD/emphysema -12/12: Intubated in the ICU -currently on CMV mode of ventilation, peep of 8 and 30% FiO2, saturating 90 91% -continue bronchodilators given history of COPD -Sedated with propofol and fentanyl infusion, maintain RASS of 0 to -2, daily SBT and SAT -12/15: chest x-rays have not been improving so opted to obtain chest CT which is as under -12/16: Consulted pulmonology and patient had bronchoscopy. Culture sent -antibiotic and antiviral as below -sedation holiday was performed and patient placed on 5/8 PSV but patient became tachypneic with respiratory rate in 30s and failed his trial. -12/18 chest x-ray reviewed and appears worse. For further fluids - 12/18 for weaning trial as chest x-ray appears worsened patient has increased oxygen requirement -12/15: Repeat CT chest: IMPRESSION: Endotracheal tube, left IJ central venous line, NG tube, all in good position. Pulmonary opacities likely representing worsening atypical/viral infection. Small cavitary lesions noted in the right upper lobe. A component of aspiration could be considered given the presence of airway secretions/debris. Trace bilateral pleural effusions. Ascending aortic ectasia (2) Multifocal pneumonia: Code(s): J18.9 - Pneumonia, unspecified organism Status: Acute Assessment and Plan: 12/10: CT chest PE protocol was negative for PE, but showed bilateral multifocal pneumonia -chest x-ray also showed bilateral multifocal pneumonia -patient tested positive for influenza A 12/10: Blood cultures negative x2 12/12: Sputum cultures are negative 12/12: Nasal MRSA not detected -continue meropenem doxycycline, vancomycin (12/12) -continue Tamiflu (3) COPD with emphysema: Code(s): J43.9 - Emphysema, unspecified Status: Acute Assessment and Plan: History of COPD/emphysema See above (4) SVT (supraventricular tachycardia): Code(s): I47.10 - Supraventricular tachycardia, unspecified Status: Acute Assessment and Plan: Patient went into SVT on admission, appreciate cardiology evaluation and recommendation likely related to respiratory distress from pneumonia, influenza, alcohol withdrawal. -patient was started on metoprolol per tube by cardiology (12/13) -currently in sinus rhythm, rate controlled, patient does have intermittent SVTs which is short-lived Echo Summary 1. Complete two-dimensional, color flow and Doppler transthoracic echocardiogram is performed. 2. Technically difficult study with limited views as patient is supine, confused, and restrained with mittens. 3. Overall does appear to have normal biventricular size and systolic function. 4. There does not appear to be any significant valvular disease. (5) Alcohol withdrawal: Code(s): F10.939 - Alcohol use, unspecified with withdrawal, unspecified Status: Acute Assessment and Plan: Patient does have a history of significant alcohol use -in the IMU he had elevated CIWA score and received multiple doses of Ativan -12/12: when I evaluated the patient he was confused, tremulous, and was in alcohol withdrawal -currently intubated and sedated with propofol -continue Precedex -continue thiamine and folic acid (6) Tobacco dependence: Code(s): F17.200 - Nicotine dependence, unspecified, uncomplicated Status: Acute Assessment and Plan: Will prison classification counselor patient on cessation of tobacco use once he is off the ventilator (7) Electrolyte abnormality: Code(s): E87.8 - Other disorders of electrolyte and fluid balance, not elsewhere classified Status: Acute Assessment and Plan: Will replace electrolytes as needed (8) MICHELLE (acute kidney injury): Code(s): N17.9 - Acute kidney failure, unspecified Status: Acute Assessment and Plan: 12/17 Increase in creatinine as compared to yesterday. Creatinine 1.4 Patient was given IV albumin and IV fluids Creatinine improved to 1.2 with improvement in urine output. Monitor urine output electrolytes and creat Plan DVT prophylaxis: Lovenox Stress ulcer prophylaxis: Protonix Nutrition: Tolerating tube feeds which will be continued Code Status: Full code Critical Care Time Spent: 32 minutes Due to a high probability of clinically significant, life threatening deterioration, the patient required my highest level of preparedness to intervene emergently and I personally spent this critical care time directly and personally managing the patient. This critical care time included obtaining a history; examining the patient; pulse oximetry; ordering and review of studies; arranging urgent treatment with development of a management plan; evaluation of patient's response to treatment; frequent reassessment; and discussions with other providers. It was exclusive of separately billable procedures and treating other patients and teaching time. Please see Assessment and Plan section and the rest of the note for further information on patient assessment and treatment This dictation may have been done utilizing a voice recognition system. Attempts have been made to correct errors. However, there may be uncorrected grammatical, spelling, and recognitions errors present. Subjective Date/time seen: 12/18/24 Overnight events reviewed. Patient is afebrile. Continues to be on 30% FiO2. Good urine output. Tolerating tube feed. Afebrile He failed his weaning trial yesterday Interval history: Reason for consult: Acute respiratory failure, pneumonia, influenza a, alcohol withdrawal, supraventricular tachycardia Review of Systems Review of Systems: ROS unobtainable: Yes unobtainable due to endotracheal tube, unobtainable due to medical condition and unobtainable due to mental status Exam Narrative: General: Intubated and sedated, in no acute distress HEENT:? Pupils equal and reactive, sclera is clear Neck:? Supple Respiratory:? Coarse breath sounds bilaterally, rales on upper lobes bilaterally, decreased air entry at bases, no wheezing Cardiac:? S1-S2 is normal, regular rate and rhythm Abdomen:? Soft, nontender, nondistended, hypoactive bowel sound Extremities:? No edema, palpable pedal pulses Neuro:? Intubated and sedated, on loading sedation patient moved all 4 extremity but not follow any command Skin:? Warm and dry, bruising noted on bilateral upper and lower extremity Psych:? Unable to assess at this time Objective Data Vital Signs Vital Signs: Vital Signs - 24 hr 12/17/24 10:00 12/17/24 10:00 12/17/24 10:00 Temperature Pulse Rate 95 95 95 Respiratory Rate 23 H 23 H Blood Pressure Pulse Oximetry Oxygen Delivery Fraction of Inspired Oxygen 12/17/24 10:00 12/17/24 10:45 12/17/24 10:45 Temperature Pulse Rate 95 98 Respiratory Rate 23 H 20 Blood Pressure 158/87 H Pulse Oximetry 92 Oxygen Delivery Fraction of Inspired Oxygen 30 12/17/24 11:15 12/17/24 11:15 12/17/24 11:20 Temperature Pulse Rate 118 H 160 H Respiratory Rate 35 H 40 H Blood Pressure Pulse Oximetry Oxygen Delivery Fraction of Inspired Oxygen 30 12/17/24 11:25 12/17/24 11:30 12/17/24 11:35 Temperature Pulse Rate 125 H 123 H 110 H Respiratory Rate 38 H 32 H 30 H Blood Pressure Pulse Oximetry Oxygen Delivery Fraction of Inspired Oxygen 12/17/24 12:00 12/17/24 12:00 12/17/24 12:00 Temperature 37.5 C Pulse Rate 108 H 108 H 108 H Respiratory Rate 27 H 27 H 27 H Blood Pressure 159/87 H Pulse Oximetry 91 Oxygen Delivery Fraction of Inspired Oxygen 12/17/24 12:00 12/17/24 12:00 12/17/24 12:00 Temperature Pulse Rate 117 H 112 H Respiratory Rate 27 H Blood Pressure Pulse Oximetry 95 Oxygen Delivery Mechanical Ventilation Fraction of Inspired Oxygen 30 30 12/17/24 12:07 12/17/24 12:35 12/17/24 13:01 Temperature Pulse Rate 117 H 108 H 108 H Respiratory Rate 31 H 31 H Blood Pressure Pulse Oximetry 95 Oxygen Delivery Mechanical Ventilation Fraction of Inspired Oxygen 30 12/17/24 13:02 12/17/24 13:30 12/17/24 14:00 Temperature Pulse Rate 108 H 108 H 99 Respiratory Rate 32 H 28 H Blood Pressure Pulse Oximetry Oxygen Delivery Fraction of Inspired Oxygen 12/17/24 14:00 12/17/24 14:00 12/17/24 14:00 Temperature Pulse Rate 99 99 99 Respiratory Rate 22 H 22 H 22 H Blood Pressure 147/91 H Pulse Oximetry 92 Oxygen Delivery Fraction of Inspired Oxygen 12/17/24 14:00 12/17/24 14:15 12/17/24 14:19 Temperature Pulse Rate 99 98 98 Respiratory Rate 22 H 23 H Blood Pressure Pulse Oximetry 92 Oxygen Delivery Mechanical Ventilation Fraction of Inspired Oxygen 30 12/17/24 14:19 12/17/24 14:51 12/17/24 14:55 Temperature Pulse Rate 98 90 88 Respiratory Rate 22 H 22 H 21 H Blood Pressure Pulse Oximetry Oxygen Delivery Fraction of Inspired Oxygen 12/17/24 16:00 12/17/24 16:00 12/17/24 16:00 Temperature Pulse Rate 79 79 79 Respiratory Rate 21 H 21 H 21 H Blood Pressure Pulse Oximetry Oxygen Delivery Fraction of Inspired Oxygen 12/17/24 16:00 12/17/24 16:00 12/17/24 16:00 Temperature 37.0 C Pulse Rate 79 79 Respiratory Rate 21 H 21 H Blood Pressure 123/74 Pulse Oximetry 94 94 Oxygen Delivery Mechanical Ventilation Fraction of Inspired Oxygen 30 30 12/17/24 16:00 12/17/24 16:52 12/17/24 16:52 Temperature Pulse Rate 74 86 86 Respiratory Rate 25 H 21 H Blood Pressure Pulse Oximetry Oxygen Delivery Fraction of Inspired Oxygen 12/17/24 16:53 12/17/24 16:53 12/17/24 17:23 Temperature Pulse Rate 69 69 69 Respiratory Rate 20 20 Blood Pressure Pulse Oximetry 94 Oxygen Delivery Mechanical Ventilation Fraction of Inspired Oxygen 30 12/17/24 17:30 12/17/24 18:00 12/17/24 18:00 Temperature Pulse Rate 67 68 67 Respiratory Rate 20 21 H 20 Blood Pressure Pulse Oximetry Oxygen Delivery Fraction of Inspired Oxygen 12/17/24 18:00 12/17/24 18:00 12/17/24 18:05 Temperature Pulse Rate 67 67 67 Respiratory Rate 20 20 Blood Pressure 130/75 Pulse Oximetry 95 Oxygen Delivery Fraction of Inspired Oxygen 12/17/24 20:00 12/17/24 20:00 12/17/24 20:00 Temperature Pulse Rate 72 72 Respiratory Rate 20 20 Blood Pressure Pulse Oximetry Oxygen Delivery Fraction of Inspired Oxygen 30 12/17/24 20:00 12/17/24 20:00 12/17/24 20:00 Temperature Pulse Rate 72 73 Respiratory Rate 20 Blood Pressure Pulse Oximetry 95 Oxygen Delivery Mechanical Ventilation Fraction of Inspired Oxygen 30 12/17/24 20:14 12/17/24 20:44 12/17/24 20:49 Temperature 37.0 C Pulse Rate 79 85 98 Respiratory Rate 19 20 Blood Pressure 129/78 Pulse Oximetry 94 Oxygen Delivery Fraction of Inspired Oxygen 12/17/24 20:50 12/17/24 21:00 12/17/24 21:20 Temperature Pulse Rate 85 80 78 Respiratory Rate 21 H 20 Blood Pressure Pulse Oximetry 94 Oxygen Delivery Mechanical Ventilation Fraction of Inspired Oxygen 30 12/17/24 21:20 12/17/24 21:33 12/17/24 21:36 Temperature Pulse Rate 78 73 73 Respiratory Rate 20 20 20 Blood Pressure Pulse Oximetry Oxygen Delivery Fraction of Inspired Oxygen 12/17/24 22:00 12/17/24 22:00 12/17/24 22:00 Temperature Pulse Rate 69 69 69 Respiratory Rate 20 20 20 Blood Pressure Pulse Oximetry Oxygen Delivery Fraction of Inspired Oxygen 12/17/24 22:00 12/17/24 22:17 12/17/24 22:55 Temperature 36.9 C Pulse Rate 69 67 68 Respiratory Rate 22 H 25 H Blood Pressure 140/83 Pulse Oximetry 94 Oxygen Delivery Fraction of Inspired Oxygen 12/17/24 23:27 12/18/24 00:00 12/18/24 00:00 Temperature Pulse Rate 89 63 63 Respiratory Rate 20 20 Blood Pressure Pulse Oximetry 94 Oxygen Delivery Mechanical Ventilation Fraction of Inspired Oxygen 30 12/18/24 00:00 12/18/24 00:00 12/18/24 00:00 Temperature 37.1 C Pulse Rate 63 63 Respiratory Rate 20 20 Blood Pressure 141/84 H Pulse Oximetry 94 Oxygen Delivery Fraction of Inspired Oxygen 30 12/18/24 00:00 12/18/24 00:00 12/18/24 00:25 Temperature Pulse Rate 62 63 Respiratory Rate 23 H Blood Pressure Pulse Oximetry 95 Oxygen Delivery Mechanical Ventilation Fraction of Inspired Oxygen 30 12/18/24 02:00 12/18/24 02:00 12/18/24 02:00 Temperature Pulse Rate 72 72 72 Respiratory Rate 20 22 H 20 Blood Pressure Pulse Oximetry Oxygen Delivery Fraction of Inspired Oxygen 12/18/24 02:00 12/18/24 02:00 12/18/24 02:16 Temperature Pulse Rate 72 72 66 Respiratory Rate 22 H 20 Blood Pressure 131/77 Pulse Oximetry 93 Oxygen Delivery Fraction of Inspired Oxygen 12/18/24 02:24 12/18/24 02:29 12/18/24 02:44 Temperature Pulse Rate 66 85 75 Respiratory Rate 20 25 H Blood Pressure Pulse Oximetry 95 Oxygen Delivery Mechanical Ventilation Fraction of Inspired Oxygen 30 12/18/24 03:23 12/18/24 03:27 12/18/24 04:00 Temperature Pulse Rate 84 84 Respiratory Rate 20 20 Blood Pressure Pulse Oximetry Oxygen Delivery Fraction of Inspired Oxygen 30 12/18/24 04:00 12/18/24 04:00 12/18/24 04:00 Temperature 37.3 C Pulse Rate 71 71 Respiratory Rate 20 20 Blood Pressure Pulse Oximetry Oxygen Delivery Fraction of Inspired Oxygen 12/18/24 04:00 12/18/24 04:00 12/18/24 04:00 Temperature Pulse Rate 71 71 Respiratory Rate 20 Blood Pressure Pulse Oximetry 93 Oxygen Delivery Mechanical Ventilation Fraction of Inspired Oxygen 30 12/18/24 04:09 12/18/24 04:20 12/18/24 05:04 Temperature Pulse Rate 72 71 88 Respiratory Rate 20 23 H Blood Pressure 137/84 Pulse Oximetry 93 94 Oxygen Delivery Mechanical Ventilation Fraction of Inspired Oxygen 30 12/18/24 05:25 12/18/24 06:00 12/18/24 06:00 Temperature Pulse Rate 70 70 70 Respiratory Rate 29 H 20 28 H Blood Pressure Pulse Oximetry Oxygen Delivery Fraction of Inspired Oxygen 12/18/24 06:00 12/18/24 06:00 12/18/24 06:00 Temperature Pulse Rate 70 71 71 Respiratory Rate 20 20 Blood Pressure 129/75 Pulse Oximetry 94 Oxygen Delivery Fraction of Inspired Oxygen 12/18/24 06:22 12/18/24 06:22 12/18/24 06:40 Temperature Pulse Rate 65 65 65 Respiratory Rate 20 20 28 H Blood Pressure Pulse Oximetry Oxygen Delivery Fraction of Inspired Oxygen 12/18/24 06:40 12/18/24 07:58 12/18/24 08:04 Temperature Pulse Rate 65 70 70 Respiratory Rate 28 H 26 H 28 H Blood Pressure Pulse Oximetry Oxygen Delivery Fraction of Inspired Oxygen 12/18/24 08:05 12/18/24 08:05 12/18/24 08:46 Temperature Pulse Rate 70 70 76 Respiratory Rate 28 H 26 H 29 H Blood Pressure Pulse Oximetry Oxygen Delivery Fraction of Inspired Oxygen 12/18/24 08:48 Temperature Pulse Rate 75 Respiratory Rate Blood Pressure Pulse Oximetry 93 Oxygen Delivery Mechanical Ventilation Fraction of Inspired Oxygen 30 Intake/Output Intake/Output: Intake & Output 12/15/24 12/16/24 12/17/24 12/18/24 23:59 23:59 23:59 23:59 Intake Total 3988.9 3779.5 4585.2 1835.2 Output Total 2275 1300 1700 1550 Balance 1713.9 2479.5 2885.2 285.2 Meds/Results Medications: Active Medications Generic Name Dose Route Start Last Admin Trade Name Freq PRN Reason Stop Dose Admin Acetaminophen 650 mg 12/11/24 07:58 Acetaminophen 325 Mg Tablet PO Q4H PRN Mild Pain (1-3) or Fever Albuterol 2 puff 12/11/24 00:26 Albuterol Sulfate (*Sp) Aerosol 1 Puff INHALATION QIDRT PRN shortness of breath or wheezing Albuterol/Ipratropium 3 ml 12/11/24 02:00 12/18/24 08:46 Ipratropium 0.5 Mg/Albuterol Sulfate 2.5 Mg Ampul.Neb 3 Ml INHALATION 3 ml Q6HRT SANTIAGO Administration Alteplase, Recombinant 2 mg 12/16/24 09:59 12/16/24 16:31 Alteplase 2 Mg Vial (Cathflo) IV PUSH 2 mg ONCE PRN Administration Line Occlusion Dextrose 12.5 gm 12/11/24 11:48 Dextrose 50% 25 Gm/50 Ml Syringe IV PUSH PRN PRN Hypoglycemia Protocol Enoxaparin Sodium 40 mg 12/13/24 09:00 12/17/24 08:49 Enoxaparin 40 Mg/0.4 Ml Syringe SUB-Q 40 mg DAILY SANTIAGO Administration Fentanyl Citrate 50 mcg 12/12/24 23:31 12/17/24 00:35 Fentanyl Citrate Inj (*Crx) 100 Mcg/2 Ml Vial IV PUSH 50 mcg Q2H PRN Administration AGITATION WHILE ON VENT Folic Acid 1 mg 12/11/24 09:00 12/17/24 08:48 Folic Acid 1 Mg/0.2 Ml Inj IV PUSH 1 mg QAM SANTIAGO Administration Glucagon 1 mg 12/11/24 11:48 Glucagon For Inj 1 Mg Vial IM PRN PRN Hypoglycemia Protocol Glucose 15 gm 12/11/24 11:48 Glucose Oral Gel 15 Gm Of Glucse In 37.5 Gm Tube PO PRN PRN Hypoglycemia Protocol Dextrose 1,000 mls @ 100 mls/hr 12/11/24 11:48 Dextrose 5% 1,000 Ml IVPB PRN PRN Hypoglycemia Protocol Propofol 100 mls @ 21.45 mls/hr 12/12/24 09:55 12/18/24 08:05 Diprivan IV CONT 50 mcg/kg/min .Q4H40M SANTIAGO 21.45 mls/hr Titration Protocol 50 MCG/KG/MIN Fentanyl Citrate 2,500 mcg in 250 mls @ 5 mls/hr 12/13/24 08:15 12/18/24 08:04 Fentanyl 2,500 Mcg/Ns 250 Ml IV CONT 50 mcg/hr .Q50H SANTIAGO 5 mls/hr Titration Protocol 50 MCG/HR Meropenem 1 gm in 100 mls @ 200 mls/hr 12/16/24 13:00 12/18/24 06:10 IVPB Infused Q8HR SANTIAGO Infusion Vancomycin HCl 1,250 mg in 250 mls @ 166.667 mls/hr 12/18/24 03:00 12/18/24 03:52 Vancomycin 1,250 Mg/Ns 250 Ml IVPB Infused Q24H SANTIAGO Infusion Dexmedetomidine HCl 400 mcg in 100 mls @ 26.25 mls/hr 12/17/24 12:45 12/18/24 08:05 Precedex 400 Mcg/100 Ml IV CONT 1.5 mcg/kg/hr .Q3H49M SANTIAGO 26.25 mls/hr Administration Protocol 1.5 MCG/KG/HR Levalbuterol HCl 0.63 mg 12/11/24 09:00 Levalbuterol Neb 1.25 Mg/3 Ml INHALATION Q6HRT PRN Dryness Lorazepam 2 mg 12/11/24 04:19 12/12/24 01:57 Lorazepam Inj (*Crx) 2 Mg/Ml Vial IV PUSH 2 mg Q4H PRN Administration CIWA >8 Metoprolol Tartrate 5 mg 12/12/24 01:00 12/12/24 08:41 Metoprolol Tartrate Inj 5 Mg/5 Ml Vial IV PUSH 5 mg Q4H SANTIAGO Administration Metoprolol Tartrate 25 mg 12/13/24 21:00 12/17/24 20:44 Metoprolol Tartrate 25 Mg Tablet PO 25 mg Q12HR SANTIAGO Administration Multi-Ingred Cream/Lotion/Oil/Oint 1 applic 12/12/24 21:00 12/17/24 20:44 Mineral Oil/White Petrolatum Ointment EACH EYE 1 applic Q12HR SANTIAGO Administration Ondansetron HCl 4 mg 12/11/24 04:19 Ondansetron Inj 4 Mg/2 Ml Vial IV PUSH Q6H PRN Nausea And Vomiting Pantoprazole Sodium 40 mg 12/13/24 09:00 12/17/24 08:48 Pantoprazole Sodium Iv 40 Mg Vial IV PUSH 40 mg QAM SANTIAGO Administration Polyethylene Glycol 17 gm 12/16/24 10:22 12/17/24 08:44 Polyethylene Glycol 3350 17 Gm Powd.Pack PO 17 gm QAM SANTIAGO Administration Senna/Docusate Sodium 1 tab 12/16/24 21:00 12/17/24 20:44 Senna/Docusate Sodium Tablet PO 1 tab HS SANTIAGO Administration Sodium Chloride 20 ml 12/12/24 11:00 Central Line Flush IV PUSH PRN PRN after blood draws Sodium Chloride 10 ml 12/12/24 11:00 Central Line Flush IV PUSH PRN PRN with TPN bag changes Sodium Chloride 10 ml 12/13/24 14:00 12/18/24 05:41 Central Line Flush IV PUSH 10 ml Q8HR SANTIAGO Administration Sodium Chloride 20 ml 12/13/24 12:24 Central Line Flush IV PUSH PRN PRN after blood draws Thiamine HCl 100 mg 12/11/24 09:00 12/17/24 08:49 Thiamine Hcl 200 Mg/2 Ml Vial IV PUSH 100 mg QAM SANTIAGO Administration Radiology Results: ITS Impressions Chest CTA 12/10/24 19:15 IMPRESSION: No pulmonary embolism. No aortic dissection. Multifocal pneumonia. Abdomen X-Ray 12/12/24 10:23 IMPRESSION: 1. Nasogastric tube tip in the stomach. Chest CT 12/15/24 16:37 IMPRESSION: Endotracheal tube, left IJ central venous line, NG tube, all in good position. Pulmonary opacities likely representing worsening atypical/viral infection. Small cavitary lesions noted in the right upper lobe. A component of aspiration could be considered given the presence of airway secretions/debris. Trace bilateral pleural effusions. Ascending aortic ectasia. Chest X-Ray 12/18/24 06:14 Impression: Extensive hazy pulmonary disease, right lung worse than left. Correlate for bilateral pneumonia versus asymmetric pulmonary edema. Support tubes, as above. Labs Labs: Laboratory Results - last 24 hr 12/13/24 12/17/24 12/17/24 04:53 04:04 11:46 WBC RBC Hgb Hct MCV MCH MCHC RDW Plt Count MPV Puncture Site Not Reportable ABG pH 7.455 H ABG pCO2 36.2 ABG pO2 55.4 L ABG PO2/FiO2 Ratio 1.85 ABG HCO3 24.9 ABG O2 Saturation 90.5 L ABG O2 Content 15.3 L ABG Base Excess 1.2 A-a Gradient 116.0 Oxyhemoglobin 89.3 L Carboxyhemoglobin 0.8 Methemoglobin 0.1 Reduced Hemoglobin 9.8 H Total Hemoglobin 12.2 O2 Delivery Device Ventilator O2 Liters/Min Not Reportable Minute Volume Not Reportable Vent Rate 28 Vent Mode Cmv FiO2 30 Tidal Volume 480 PEEP 8 Peak Inspir Pressure Not Reportable Pressure Support Not Reportable Sodium Potassium Chloride Carbon Dioxide Anion Gap BUN Creatinine Estim Creat Clear Calc Estimated GFR Glucose POC Capillary Glucose 151 H Calcium Phosphorus Magnesium Total Bilirubin AST ALT Alkaline Phosphatase Total Creatine Kinase 41 L Total Protein Albumin Triglycerides 12/17/24 12/18/24 12/18/24 18:04 00:20 05:02 WBC RBC Hgb Hct MCV MCH MCHC RDW Plt Count MPV Puncture Site Right radial ABG pH 7.422 ABG pCO2 38.0 ABG pO2 63.6 L ABG PO2/FiO2 Ratio 2.12 ABG HCO3 24.2 ABG O2 Saturation 92.8 L ABG O2 Content 17.1 ABG Base Excess 0.0 A-a Gradient 105.7 Oxyhemoglobin 91.9 Carboxyhemoglobin 0.8 Methemoglobin 0.0 Reduced Hemoglobin 7.3 H Total Hemoglobin 13.2 O2 Delivery Device Ventilator O2 Liters/Min Not Reportable Minute Volume Not Reportable Vent Rate 20 Vent Mode Cmv FiO2 30 Tidal Volume 480 PEEP 8 Peak Inspir Pressure Not Reportable Pressure Support Not Reportable Sodium Potassium Chloride Carbon Dioxide Anion Gap BUN Creatinine Estim Creat Clear Calc Estimated GFR Glucose POC Capillary Glucose 118 H 105 Calcium Phosphorus Magnesium Total Bilirubin AST ALT Alkaline Phosphatase Total Creatine Kinase Total Protein Albumin Triglycerides 12/18/24 05:32 WBC 6.4 RBC 2.70 L Hgb 9.0 L Hct 27.6 L MCV 102.2 H MCH 33.3 MCHC 32.6 RDW 14.3 Plt Count 266 MPV 10.4 Puncture Site ABG pH ABG pCO2 ABG pO2 ABG PO2/FiO2 Ratio ABG HCO3 ABG O2 Saturation ABG O2 Content ABG Base Excess A-a Gradient Oxyhemoglobin Carboxyhemoglobin Methemoglobin Reduced Hemoglobin Total Hemoglobin O2 Delivery Device O2 Liters/Min Minute Volume Vent Rate Vent Mode FiO2 Tidal Volume PEEP Peak Inspir Pressure Pressure Support Sodium 145 Potassium 4.1 Chloride 112 H Carbon Dioxide 27 Anion Gap 6 BUN 41 H Creatinine 1.22 Estim Creat Clear Calc 55 Estimated GFR 60 Glucose 117 H POC Capillary Glucose Calcium 8.5 Phosphorus 3.4 Magnesium 2.1 Total Bilirubin 0.6 AST 31 ALT 17 Alkaline Phosphatase 74 Total Creatine Kinase Total Protein 6.0 L Albumin 3.3 L Triglycerides 156 H Quality VTE Prophylaxis VTE prophylaxis: pharmacologic ordered
[2024-12-18] MEDS: ENOXAPARIN 40 MG/0.4 ML SYRINGE SUB-Q (09:19)
[2024-12-18] MEDS: PANTOPRAZOLE SODIUM IV 40 MG VIAL IV PUSH (09:19)
[2024-12-18] MEDS: THIAMINE HCL 200 MG/2 ML VIAL 100 MG IV PUSH (09:19)
[2024-12-18] MEDS: polyethylene glycoL 3350 17 GM POWD.PACK PO (09:19)
[2024-12-18] MEDS: MINERAL OIL/WHITE PETROLATUM OINTMENT 1 APPLIC EACH EYE ×2 (09:20→21:31)
[2024-12-18] MEDS: FOLIC ACID 1 MG/0.2 ML INJ IV PUSH (09:20)
[2024-12-18] MEDS: METOPROLOL TARTRATE 25 MG TABLET PO ×2 (09:20→21:31)
--- NOTE | 2024-12-18 10:56 | PCFNICU ---
ICU Rounding Note: Pt current nutrition is Vital AF 1.2 at 50 ml/hr. Last recorded weight is 73.2 kg, up from 69 kg on admit. Bowel Motility: No BM Labs Reviewed: TG 156, BUN 41, ,Alb 3.3 Meds Noted: Protonix, Thiamine, Folic Acid, Meropenem, Propofol at 50 sknh=473 kcal, Fentanyl. Skin:WNL Additional Notes:Patient remains on mechanical vent. Tube feedings are being tolerated of Vital AF 1.2 at 50 ml/hr. Spoke with [facility] today regarding tube feedings, recommend to continue at 50 ml/hr 2/2 to Propofol infusion at 50 mcgs. Total Nutrition:1886 kcal/83 gm protein. Agree [facility] diet orders at this time. Following daily in ICU rounds. Will monitor weight, labs, skin, diet orders, meds every Monday and Monday.
[2024-12-18 11:51] LABS: Glucose Point of Care 104 mg/dl (65-105)
--- NOTE | 2024-12-18 14:37 | PC.NURSE ---
RN notified MD of developing rash on bilateral groin that tracks around to the back. Pt also has had increased abdominal distention since this AM. New order for stat KUB
[2024-12-18] MEDS: FENTANYL 2,500MCG/NS250ML(*CRX 2,500 MCG/250 ML BAG 12.5 MCG IV CONT (15:52)
[2024-12-18] MEDS: ACETAMINOPHEN 325 MG TABLET 650 MG PO (16:00)
[2024-12-18 17:55] LABS: Glucose Point of Care 107 mg/dl (65-105)
[2024-12-18 20:37] LABS: Glucose Point of Care 103 mg/dl (65-105)
[2024-12-18] MEDS: SENNA/DOCUSATE SODIUM TABLET 1 TAB PO (21:31)
[2024-12-19] VITALS (42 sets, daily range): BP systolic 110–141; BP diastolic 69–89; PULSE 68–92; RESP 21–38; TEMP 36.9–37.9; O2SAT 90–98
[2024-12-19] MEDS: IPRATROPIUM 0.5 MG/ALBUTEROL SULFATE 2.5 MG AMPUL.NEB 3 ML INHALATION ×4 (02:24→20:33)
[2024-12-19] MEDS: dexmedeTOMIDine 400 MCG/100 ML 400 MCG/100 ML BAG 26.25 MCG IV CONT ×6 (02:39→22:00)
[2024-12-19 02:52] LABS: Hematocrit 28.5 % (42.0-52.0); Hemoglobin 9.4 g/dL (14.0-18.0); Mean Corpuscular Hemoglobin 33.6 pg (26-34); Mean Corpuscular Volume 101.8 fl (80-100); Platelet Count Result 270 k/mm3 (150-375); White Blood Count 7.1 K/mm3 (4.5-10.0)
[2024-12-19 03:02] LABS: Alanine Aminotransferase 16 U/L (6-50); Albumin Level 3.2 g/dL (3.5-5.1); Alkaline Phosphatase 79 U/L (38-126); Anion Gap 6 mmol/L (4-12); Aspartate Amino Transferase 29 U/L (17-59); Bilirubin,Total 0.6 mg/dL (0.2-1.3); Blood Urea Nitrogen 43 mg/dL (9-20); Calcium 8.4 mg/dL (8.4-10.2); Carbon Dioxide 26 mmol/L (22-30); Chloride 111 mmol/L (98-107); Estimated CRCL calculation 51 ml/min; Estimated Glomerular Filt Rate 52; Glucose 120 mg/dL (65-110); Magnesium 2.3 mg/dL (1.6-2.3); Potassium 4.4 mmol/L (3.4-5.0); Sodium 143 mmol/L (137-145)
[2024-12-19] MEDS: PROPOFOL IV EMULSION 100 ML 21.45 MG IV CONT ×5 (03:18→21:38)
[2024-12-19] MEDS: VANCOMYCIN 1,250 MG/NS 250 ML 1,250 MG/250 ML BAG 166.67 MG IVPB (03:26)
[2024-12-19 05:14] LABS: Alveolar/Arterial O2 Gradient 102.7 mmHg; Base Excess ABG 0.1 mEq/l (+/-2.0); Carboxyhemoglobin 0.7 % THb (0-2.0); Fractional Inspired Oxygen 30 %; HCO3 ABG 24.7 mEq/l (22.0-26.0); Methemoglobin ABG 0.1 %THb (0-1.5); Oxygen Content ABG 14.8 %vol (16.0-22.0); Oxygen Saturation ABG 92.6 % (95.0-100.0); Oxyhemoglobin 91.9 % THb (90.0-100.0); PCO2 ABG 40.2 mmHg (35.0-45.0); PO2 FiO2 Ratio Arterial Blood 2.13 %; Reduced Hemoglobin 7.3 %THb (0-5.0); Total Hemoglobin 11.4 g/dL (12.0-18.0); pH ABG 7.407 (7.350-7.450)
[2024-12-19] MEDS: CENTRAL LINE FLUSH 10 ML IV PUSH ×3 (05:17→21:00)
[2024-12-19] MEDS: MEROPENEM 1 GM/NS 100 ML 1 GM/100 ML BAG IVPB ×3 (05:17→23:21)
[2024-12-19 07:34] LABS: Device VENTILATOR
[2024-12-19] MEDS: METOPROLOL TARTRATE 25 MG TABLET PO ×2 (09:18→20:51)
[2024-12-19] MEDS: polyethylene glycoL 3350 17 GM POWD.PACK PO (09:18)
[2024-12-19] MEDS: ENOXAPARIN 40 MG/0.4 ML SYRINGE SUB-Q (09:19)
[2024-12-19] MEDS: FUROSEMIDE INJ 100 MG/10 ML VIAL 80 MG IV PUSH (09:19)
[2024-12-19] MEDS: THIAMINE HCL 200 MG/2 ML VIAL 100 MG IV PUSH (09:19)
[2024-12-19] MEDS: METOCLOPRAMIDE HCL 10 MG/10 ML SOLN UDC FEED TUBE ×3 (09:19→20:21)
[2024-12-19] MEDS: FOLIC ACID 1 MG/0.2 ML INJ IV PUSH (09:19)
[2024-12-19] MEDS: BISACODYL 10 MG SUPPOSITORY RECTAL (09:19)
[2024-12-19] MEDS: PANTOPRAZOLE SODIUM IV 40 MG VIAL IV PUSH (09:19)
[2024-12-19] MEDS: MINERAL OIL/WHITE PETROLATUM OINTMENT 1 APPLIC EACH EYE ×2 (09:20→20:21)
--- NOTE | 2024-12-19 09:34 | P.PNINT_ITS ---
Progress Note: A&P Assessment and Plan (1) Acute respiratory failure: Code(s): J96.00 - Acute respiratory failure, unspecified whether with hypoxia or hypercapnia Status: Acute Assessment and Plan: 12/12: Acute respiratory failure/impending respiratory failure likely related to altered mentation secondary to alcohol withdrawal, respiratory distress due to pneumonia and influenza A, COPD/emphysema -12/12: Intubated in the ICU -currently on CMV mode of ventilation, peep of 8 and 30% FiO2, saturating 90 91% -continue bronchodilators given history of COPD -Sedated with propofol and fentanyl infusion, maintain RASS of 0 to -2, daily SBT and SAT -12/15: chest x-rays have not been improving so opted to obtain chest CT which is as under -12/16: Consulted pulmonology and patient had bronchoscopy. Culture sent -antibiotic and antiviral as below -sedation holiday was performed and patient placed on 5/8 PSV but patient became tachypneic with respiratory rate in 30s and failed his trial. -12/18 chest x-ray reviewed and appears worse. For further fluids - 12/18 for weaning trial as chest x-ray appears worsened patient has increased oxygen requirement -12/19 sedation holiday was performed patient not a candidate for weaning trial due to tachypnea tachycardia on loading sedation IV Lasix -12/15: Repeat CT chest: IMPRESSION: Endotracheal tube, left IJ central venous line, NG tube, all in good position. Pulmonary opacities likely representing worsening atypical/viral infection. Small cavitary lesions noted in the right upper lobe. A component of aspiration could be considered given the presence of airway secretions/debris. Trace bilateral pleural effusions. Ascending aortic ectasia (2) Multifocal pneumonia: Code(s): J18.9 - Pneumonia, unspecified organism Status: Acute Assessment and Plan: 12/10: CT chest PE protocol was negative for PE, but showed bilateral multifocal pneumonia -chest x-ray also showed bilateral multifocal pneumonia -patient tested positive for influenza A 12/10: Blood cultures negative x2 12/12: Sputum cultures are negative 12/12: Nasal MRSA not detected -continue meropenem Completed doxycycline, Discontinue vancomycin (12/19) Completed course Tamiflu (3) COPD with emphysema: Code(s): J43.9 - Emphysema, unspecified Status: Acute Assessment and Plan: History of COPD/emphysema See above (4) SVT (supraventricular tachycardia): Code(s): I47.10 - Supraventricular tachycardia, unspecified Status: Acute Assessment and Plan: Patient went into SVT on admission, appreciate cardiology evaluation and recommendation likely related to respiratory distress from pneumonia, influenza, alcohol withdrawal. -patient was started on metoprolol per tube by cardiology (12/13) -currently in sinus rhythm, rate controlled, patient does have intermittent SVTs which is short-lived Echo Summary 1. Complete two-dimensional, color flow and Doppler transthoracic echocardi ogram is performed. 2. Technically difficult study with limited views as patient is supine, confused, and restrained with mittens. 3. Overall does appear to have normal biventricular size and systolic function. 4. There does not appear to be any significant valvular disease. (5) Alcohol withdrawal: Code(s): F10.939 - Alcohol use, unspecified with withdrawal, unspecified Status: Acute Assessment and Plan: Patient does have a history of significant alcohol use -in the IMU he had elevated CIWA score and received multiple doses of Ativan -12/12: when I evaluated the patient he was confused, tremulous, and was in alcohol withdrawal -currently intubated and sedated with propofol -continue Precedex -continue thiamine and folic acid (6) Electrolyte abnormality: Code(s): E87.8 - Other disorders of electrolyte and fluid balance, not elsewhere classified Status: Acute Assessment and Plan: Will replace electrolytes as needed (7) MICHELLE (acute kidney injury): Code(s): N17.9 - Acute kidney failure, unspecified Status: Acute Assessment and Plan: 12/17 Increase in creatinine as compared to yesterday. Patient was given IV albumin and IV fluids Discontinue vancomycin Monitor urine output electrolytes and creat (8) Ileus: Code(s): K56.7 - Ileus, unspecified Status: Acute Assessment and Plan: Decreased bowel sounds and slight abdominal distension KUB does showed normal bowel gas pattern at this time Continue tube feed Continue MiraLax, add Dulcolax suppository Start Reglan Fentanyl does has been lowered over last 1-2 days Plan DVT prophylaxis: Lovenox Stress ulcer prophylaxis: Protonix Nutrition: Tolerating tube feeds which will be continued Code Status: Full code Critical Care Time Spent: 35 minutes Due to a high probability of clinically significant, life threatening deterioration, the patient required my highest level of preparedness to intervene emergently and I personally spent this critical care time directly and personally managing the patient. This critical care time included obtaining a history; examining the patient; pulse oximetry; ordering and review of studies; arranging urgent treatment with development of a management plan; evaluation of patient's response to treatment; frequent reassessment; and discussions with other providers. It was exclusive of separately billable procedures and treating other patients and teaching time. Please see Assessment and Plan section and the rest of the note for further information on patient assessment and treatment This dictation may have been done utilizing a voice recognition system. Attempts have been made to correct errors. However, there may be uncorrected grammatical, spelling, and recognitions errors present. Subjective Date/time seen: 12/19/24 Overnight events reviewed. febrile last night Continues to be on mechanical ventilation 30% FiO2 Some abdominal distension yesterday. Decreased breath sounds. Residuals on the higher side Continues to be sedated with propofol Precedex and fentanyl Of Vitals acceptable Interval history: Reason for consult: Acute respiratory failure, pneumonia, influenza a, alcohol withdrawal, supraventricular tachycardia Review of Systems Review of Systems: ROS unobtainable: Yes unobtainable due to endotracheal tube, unobtainable due to medical condition and unobtainable due to mental status Exam Narrative: General: Intubated and sedated, in no acute distress HEENT:? Pupils equal and reactive, sclera is clear Neck:? Supple Respiratory:? Coarse breath sounds bilaterally, rales on upper lobes bilaterally, decreased air entry at bases, no wheezing Cardiac:? S1-S2 is normal, regular rate and rhythm Abdomen:? Soft, nontender, mildly distended, absent bowel sound Extremities:? No edema, palpable pedal pulses Neuro:? Intubated and sedated, on Yamile sedation patient moved all 4 extremity but not follow any command she becomes respiratory rate going up to 40, increased heart rate and blood pressure Skin:? Warm and dry, bruising noted on bilateral upper and lower extremity Psych:? Unable to assess at this time Objective Data Vital Signs Vital Signs: Vital Signs - 24 hr 12/18/24 09:35 12/18/24 09:40 12/18/24 10:00 Temperature Pulse Rate 85 86 77 Respiratory Rate 30 H 32 H 27 H Blood Pressure 136/75 Pulse Oximetry 92 Oxygen Delivery Fraction of Inspired Oxygen 12/18/24 10:00 12/18/24 10:00 12/18/24 10:00 Temperature Pulse Rate 73 73 73 Respiratory Rate 27 H 27 H 27 H Blood Pressure Pulse Oximetry Oxygen Delivery Fraction of Inspired Oxygen 12/18/24 10:00 12/18/24 10:39 12/18/24 10:39 Temperature Pulse Rate 77 73 73 Respiratory Rate 27 H 27 H Blood Pressure Pulse Oximetry Oxygen Delivery Fraction of Inspired Oxygen 12/18/24 11:32 12/18/24 11:32 12/18/24 11:33 Temperature Pulse Rate 68 68 68 Respiratory Rate 20 20 21 H Blood Pressure Pulse Oximetry Oxygen Delivery Fraction of Inspired Oxygen 12/18/24 11:42 12/18/24 12:00 12/18/24 12:00 Temperature 37.3 C Pulse Rate 68 68 68 Respiratory Rate 21 H 21 H Blood Pressure 132/82 Pulse Oximetry 92 92 92 Oxygen Delivery Mechanical Ventilation Mechanical Ventilation Fraction of Inspired Oxygen 30 30 12/18/24 12:00 12/18/24 12:00 12/18/24 12:00 Temperature Pulse Rate 69 68 Respiratory Rate 20 Blood Pressure Pulse Oximetry Oxygen Delivery Fraction of Inspired Oxygen 30 12/18/24 12:00 12/18/24 12:00 12/18/24 13:43 Temperature Pulse Rate 68 68 82 Respiratory Rate 20 20 30 H Blood Pressure Pulse Oximetry Oxygen Delivery Fraction of Inspired Oxygen 12/18/24 13:44 12/18/24 13:55 12/18/24 14:00 Temperature Pulse Rate 79 79 94 Respiratory Rate 22 H 30 H Blood Pressure Pulse Oximetry 92 Oxygen Delivery Mechanical Ventilation Fraction of Inspired Oxygen 30 12/18/24 14:00 12/18/24 14:00 12/18/24 14:00 Temperature Pulse Rate 94 80 80 Respiratory Rate 30 H 27 H 27 H Blood Pressure Pulse Oximetry Oxygen Delivery Fraction of Inspired Oxygen 12/18/24 14:00 12/18/24 14:00 12/18/24 15:21 Temperature Pulse Rate 80 80 80 Respiratory Rate 27 H 28 H Blood Pressure 122/68 Pulse Oximetry 92 Oxygen Delivery Fraction of Inspired Oxygen 12/18/24 15:21 12/18/24 15:52 12/18/24 15:52 Temperature Pulse Rate 80 74 74 Respiratory Rate 28 H 22 H 22 H Blood Pressure Pulse Oximetry Oxygen Delivery Fraction of Inspired Oxygen 12/18/24 15:59 12/18/24 16:00 12/18/24 16:00 Temperature 38.1 C H 38.1 C H Pulse Rate 75 75 Respiratory Rate 27 H 27 H Blood Pressure 137/79 Pulse Oximetry 92 92 Oxygen Delivery Mechanical Ventilation Fraction of Inspired Oxygen 30 12/18/24 16:00 12/18/24 16:00 12/18/24 16:01 Temperature Pulse Rate 75 75 Respiratory Rate 26 H Blood Pressure Pulse Oximetry Oxygen Delivery Fraction of Inspired Oxygen 30 12/18/24 16:01 12/18/24 16:01 12/18/24 17:00 Temperature 38.0 C H Pulse Rate 75 75 Respiratory Rate 27 H 27 H Blood Pressure Pulse Oximetry Oxygen Delivery Fraction of Inspired Oxygen 12/18/24 17:13 12/18/24 18:00 12/18/24 18:00 Temperature Pulse Rate 83 71 71 Respiratory Rate 19 Blood Pressure 124/76 Pulse Oximetry 92 92 Oxygen Delivery Mechanical Ventilation Fraction of Inspired Oxygen 30 12/18/24 18:40 12/18/24 19:03 12/18/24 19:03 Temperature Pulse Rate 67 67 67 Respiratory Rate 19 19 19 Blood Pressure Pulse Oximetry Oxygen Delivery Fraction of Inspired Oxygen 12/18/24 19:04 12/18/24 20:00 12/18/24 20:00 Temperature Pulse Rate 67 70 70 Respiratory Rate 19 22 H 23 H Blood Pressure Pulse Oximetry Oxygen Delivery Fraction of Inspired Oxygen 12/18/24 20:00 12/18/24 20:00 12/18/24 20:00 Temperature Pulse Rate 73 70 Respiratory Rate 23 H 21 H Blood Pressure Pulse Oximetry 93 Oxygen Delivery Mechanical Ventilation Fraction of Inspired Oxygen 30 30 12/18/24 20:00 12/18/24 20:25 12/18/24 20:25 Temperature Pulse Rate 67 67 67 Respiratory Rate 21 H Blood Pressure Pulse Oximetry 98 Oxygen Delivery Mechanical Ventilation Fraction of Inspired Oxygen 30 12/18/24 20:31 12/18/24 20:43 12/18/24 21:31 Temperature Pulse Rate 71 72 72 Respiratory Rate 20 18 Blood Pressure 126/77 Pulse Oximetry 93 Oxygen Delivery Fraction of Inspired Oxygen 12/18/24 22:00 12/18/24 22:00 12/18/24 22:00 Temperature Pulse Rate 71 70 70 Respiratory Rate 20 20 20 Blood Pressure Pulse Oximetry Oxygen Delivery Fraction of Inspired Oxygen 12/18/24 22:00 12/18/24 22:00 12/18/24 22:50 Temperature 37.0 C Pulse Rate 69 69 70 Respiratory Rate 21 H 21 H Blood Pressure 135/80 Pulse Oximetry 94 Oxygen Delivery Fraction of Inspired Oxygen 12/18/24 22:50 12/18/24 23:00 12/18/24 23:23 Temperature Pulse Rate 70 69 69 Respiratory Rate 21 H 20 Blood Pressure Pulse Oximetry 100 Oxygen Delivery Mechanical Ventilation Fraction of Inspired Oxygen 30 12/18/24 23:44 12/18/24 23:48 12/19/24 00:00 Temperature Pulse Rate 70 70 Respiratory Rate 24 H 24 H Blood Pressure Pulse Oximetry Oxygen Delivery Fraction of Inspired Oxygen 30 12/19/24 00:00 12/19/24 00:00 12/19/24 00:00 Temperature 36.9 C Pulse Rate 73 70 73 Respiratory Rate 25 H 25 H 25 H Blood Pressure 130/84 Pulse Oximetry 94 94 Oxygen Delivery Mechanical Ventilation Fraction of Inspired Oxygen 30 12/19/24 00:00 12/19/24 00:01 12/19/24 00:01 Temperature Pulse Rate 72 73 73 Respiratory Rate 25 H 25 H Blood Pressure Pulse Oximetry Oxygen Delivery Fraction of Inspired Oxygen 12/19/24 02:00 12/19/24 02:00 12/19/24 02:00 Temperature Pulse Rate 76 81 81 Respiratory Rate 25 H 26 H Blood Pressure 122/78 Pulse Oximetry 94 Oxygen Delivery Fraction of Inspired Oxygen 12/19/24 02:00 12/19/24 02:00 12/19/24 02:24 Temperature Pulse Rate 80 80 75 Respiratory Rate 25 H 25 H Blood Pressure Pulse Oximetry 98 Oxygen Delivery Mechanical Ventilation Fraction of Inspired Oxygen 30 12/19/24 02:24 12/19/24 02:31 12/19/24 02:39 Temperature Pulse Rate 75 74 77 Respiratory Rate 25 H 25 H 30 H Blood Pressure Pulse Oximetry Oxygen Delivery Fraction of Inspired Oxygen 12/19/24 02:39 12/19/24 03:18 12/19/24 03:18 Temperature Pulse Rate 77 75 75 Respiratory Rate 30 H 25 H 25 H Blood Pressure Pulse Oximetry Oxygen Delivery Fraction of Inspired Oxygen 12/19/24 04:00 12/19/24 04:00 12/19/24 04:00 Temperature 37.1 C Pulse Rate 74 74 Respiratory Rate 27 H 26 H Blood Pressure 129/81 Pulse Oximetry 94 94 Oxygen Delivery Mechanical Ventilation Fraction of Inspired Oxygen 30 30 12/19/24 04:00 12/19/24 04:00 12/19/24 04:00 Temperature Pulse Rate 77 77 76 Respiratory Rate 24 H 25 H Blood Pressure Pulse Oximetry Oxygen Delivery Fraction of Inspired Oxygen 12/19/24 04:00 12/19/24 05:32 12/19/24 06:00 Temperature Pulse Rate 73 72 73 Respiratory Rate 25 H 26 H Blood Pressure Pulse Oximetry 94 Oxygen Delivery Mechanical Ventilation Fraction of Inspired Oxygen 30 12/19/24 06:00 12/19/24 06:00 12/19/24 06:00 Temperature Pulse Rate 73 76 73 Respiratory Rate 25 H 28 H Blood Pressure Pulse Oximetry Oxygen Delivery Fraction of Inspired Oxygen 12/19/24 06:00 12/19/24 06:22 12/19/24 06:22 Temperature Pulse Rate 73 74 73 Respiratory Rate 26 H 26 H 26 H Blood Pressure 137/86 Pulse Oximetry 93 Oxygen Delivery Fraction of Inspired Oxygen 12/19/24 08:00 12/19/24 08:00 12/19/24 08:00 Temperature 37.9 C H Pulse Rate 79 79 Respiratory Rate 29 H 29 H Blood Pressure 136/81 Pulse Oximetry 90 90 Oxygen Delivery Mechanical Ventilation Fraction of Inspired Oxygen 30 30 12/19/24 08:00 12/19/24 08:00 12/19/24 08:00 Temperature Pulse Rate 79 79 79 Respiratory Rate 29 H 29 H 29 H Blood Pressure Pulse Oximetry Oxygen Delivery Fraction of Inspired Oxygen 12/19/24 08:00 12/19/24 08:24 12/19/24 08:24 Temperature Pulse Rate 79 85 85 Respiratory Rate 29 H 34 H 34 H Blood Pressure Pulse Oximetry Oxygen Delivery Fraction of Inspired Oxygen 12/19/24 08:31 12/19/24 08:34 12/19/24 08:34 Temperature Pulse Rate 84 92 78 Respiratory Rate 38 H 27 H Blood Pressure Pulse Oximetry 96 Oxygen Delivery Mechanical Ventilation Fraction of Inspired Oxygen 30 12/19/24 08:41 12/19/24 09:18 Temperature Pulse Rate 78 79 Respiratory Rate 27 H Blood Pressure Pulse Oximetry Oxygen Delivery Fraction of Inspired Oxygen Intake/Output Intake/Output: Intake & Output 12/16/24 12/17/24 12/18/24 12/19/24 23:59 23:59 23:59 23:59 Intake Total 3779.5 4585.2 3763.7 1526.6 Output Total 1300 1700 2550 975 Balance 2479.5 2885.2 1213.7 551.6 Meds/Results Medications: Active Medications Generic Name Dose Route Start Last Admin Trade Name Freq PRN Reason Stop Dose Admin Acetaminophen 650 mg 12/11/24 07:58 12/18/24 16:00 Acetaminophen 325 Mg Tablet PO 650 mg Q4H PRN Administration Mild Pain (1-3) or Fever Albuterol 2 puff 12/11/24 00:26 Albuterol Sulfate (*Sp) Aerosol 1 Puff INHALATION QIDRT PRN shortness of breath or wheezing Albuterol/Ipratropium 3 ml 12/11/24 02:00 12/19/24 08:33 Ipratropium 0.5 Mg/Albuterol Sulfate 2.5 Mg Ampul.Neb 3 Ml INHALATION 3 ml Q6HRT SANTIAGO Administration Alteplase, Recombinant 2 mg 12/16/24 09:59 12/16/24 16:31 Alteplase 2 Mg Vial (Cathflo) IV PUSH 2 mg ONCE PRN Administration Line Occlusion Bisacodyl 10 mg 12/19/24 08:26 12/19/24 09:19 Bisacodyl 10 Mg Suppository RECTAL 10 mg QAM PRN Administration Constipation Dextrose 12.5 gm 12/11/24 11:48 Dextrose 50% 25 Gm/50 Ml Syringe IV PUSH PRN PRN Hypoglycemia Protocol Enoxaparin Sodium 40 mg 12/13/24 09:00 12/19/24 09:19 Enoxaparin 40 Mg/0.4 Ml Syringe SUB-Q 40 mg DAILY SANTIAGO Administration Fentanyl Citrate 50 mcg 12/12/24 23:31 12/17/24 00:35 Fentanyl Citrate Inj (*Crx) 100 Mcg/2 Ml Vial IV PUSH 50 mcg Q2H PRN Administration AGITATION WHILE ON VENT Folic Acid 1 mg 12/11/24 09:00 12/19/24 09:19 Folic Acid 1 Mg/0.2 Ml Inj IV PUSH 1 mg QAM SANTIAGO Administration Glucagon 1 mg 12/11/24 11:48 Glucagon For Inj 1 Mg Vial IM PRN PRN Hypoglycemia Protocol Glucose 15 gm 12/11/24 11:48 Glucose Oral Gel 15 Gm Of Glucse In 37.5 Gm Tube PO PRN PRN Hypoglycemia Protocol Dextrose 1,000 mls @ 100 mls/hr 12/11/24 11:48 Dextrose 5% 1,000 Ml IVPB PRN PRN Hypoglycemia Protocol Propofol 100 mls @ 21.45 mls/hr 12/12/24 09:55 12/19/24 08:31 Diprivan IV CONT 50 mcg/kg/min .Q4H40M SANTIAGO 21.45 mls/hr Titration Protocol 50 MCG/KG/MIN Fentanyl Citrate 2,500 mcg in 250 mls @ 0 mls/hr 12/13/24 08:15 12/19/24 08:24 Fentanyl 2,500 Mcg/Ns 250 Ml IV CONT 0 mcg/hr .Q0M SANTIAGO 0 mls/hr Titration Protocol 0 MCG/HR Meropenem 1 gm in 100 mls @ 200 mls/hr 12/16/24 13:00 12/19/24 05:47 IVPB Infused Q8HR SANTIAGO Infusion Dexmedetomidine HCl 400 mcg in 100 mls @ 26.25 mls/hr 12/17/24 12:45 12/19/24 08:00 Precedex 400 Mcg/100 Ml IV CONT 1.5 mcg/kg/hr .Q3H49M SANTIAGO 26.25 mls/hr Titration Protocol 1.5 MCG/KG/HR Levalbuterol HCl 0.63 mg 12/11/24 09:00 Levalbuterol Neb 1.25 Mg/3 Ml INHALATION Q6HRT PRN Dryness Metoclopramide HCl 10 mg 12/19/24 08:25 12/19/24 09:19 Metoclopramide Hcl 10 Mg/10 Ml Soln Udc FEED TUBE 10 mg Q6H SANTIAGO Administration Metoprolol Tartrate 5 mg 12/12/24 01:00 12/12/24 08:41 Metoprolol Tartrate Inj 5 Mg/5 Ml Vial IV PUSH 5 mg Q4H SANTIAGO Administration Metoprolol Tartrate 25 mg 12/13/24 21:00 12/19/24 09:18 Metoprolol Tartrate 25 Mg Tablet PO 25 mg Q12HR SANTIAGO Administration Multi-Ingred Cream/Lotion/Oil/Oint 1 applic 12/12/24 21:00 12/19/24 09:20 Mineral Oil/White Petrolatum Ointment EACH EYE 1 applic Q12HR SANTIAGO Administration Ondansetron HCl 4 mg 12/11/24 04:19 Ondansetron Inj 4 Mg/2 Ml Vial IV PUSH Q6H PRN Nausea And Vomiting Pantoprazole Sodium 40 mg 12/13/24 09:00 12/19/24 09:19 Pantoprazole Sodium Iv 40 Mg Vial IV PUSH 40 mg QAM SANTIAGO Administration Polyethylene Glycol 17 gm 12/16/24 10:22 12/19/24 09:18 Polyethylene Glycol 3350 17 Gm Powd.Pack PO 17 gm QAM SANTIAGO Administration Senna/Docusate Sodium 1 tab 12/16/24 21:00 12/18/24 21:31 Senna/Docusate Sodium Tablet PO 1 tab HS SANTIAGO Administration Sodium Chloride 20 ml 12/12/24 11:00 Central Line Flush IV PUSH PRN PRN after blood draws Sodium Chloride 10 ml 12/12/24 11:00 Central Line Flush IV PUSH PRN PRN with TPN bag changes Sodium Chloride 10 ml 12/13/24 14:00 12/19/24 05:17 Central Line Flush IV PUSH 10 ml Q8HR SANTIAGO Administration Sodium Chloride 20 ml 12/13/24 12:24 Central Line Flush IV PUSH PRN PRN after blood draws Thiamine HCl 100 mg 12/11/24 09:00 12/19/24 09:19 Thiamine Hcl 200 Mg/2 Ml Vial IV PUSH 100 mg QAM SANTIAGO Administration Radiology Results: ITS Impressions Chest CTA 12/10/24 19:15 IMPRESSION: No pulmonary embolism. No aortic dissection. Multifocal pneumonia. Chest CT 12/15/24 16:37 IMPRESSION: Endotracheal tube, left IJ central venous line, NG tube, all in good position. Pulmonary opacities likely representing worsening atypical/viral infection. Small cavitary lesions noted in the right upper lobe. A component of aspiration could be considered given the presence of airway secretions/debris. Trace bilateral pleural effusions. Ascending aortic ectasia. Abdomen X-Ray 12/18/24 14:59 IMPRESSION: 1. Normal bowel gas pattern. Chest X-Ray 12/19/24 06:11 Impression: Probable mild pulmonary edema pattern with central congestive change and minimal right pleural effusion. Correlate clinically for infection. Support tubes, as above. Labs Labs: Laboratory Results - last 24 hr 12/18/24 12/18/24 12/18/24 11:46 17:51 20:32 WBC RBC Hgb Hct MCV MCH MCHC RDW Plt Count MPV Puncture Site ABG pH ABG pCO2 ABG pO2 ABG PO2/FiO2 Ratio ABG HCO3 ABG O2 Saturation ABG O2 Content ABG Base Excess A-a Gradient Oxyhemoglobin Carboxyhemoglobin Methemoglobin Reduced Hemoglobin Total Hemoglobin O2 Delivery Device O2 Liters/Min FiO2 Sodium Potassium Chloride Carbon Dioxide Anion Gap BUN Creatinine Estim Creat Clear Calc Estimated GFR Glucose POC Capillary Glucose 104 107 H 103 Calcium Magnesium Total Bilirubin AST ALT Alkaline Phosphatase Total Protein Albumin Vancomycin Trough 12/19/24 12/19/24 02:46 04:59 WBC 7.1 RBC 2.80 L Hgb 9.4 L Hct 28.5 L MCV 101.8 H MCH 33.6 MCHC 33.0 RDW 14.0 Plt Count 270 MPV 10.0 Puncture Site Not Reportable ABG pH 7.407 ABG pCO2 40.2 ABG pO2 64.0 L ABG PO2/FiO2 Ratio 2.13 ABG HCO3 24.7 ABG O2 Saturation 92.6 L ABG O2 Content 14.8 L ABG Base Excess 0.1 A-a Gradient 102.7 Oxyhemoglobin 91.9 Carboxyhemoglobin 0.7 Methemoglobin 0.1 Reduced Hemoglobin 7.3 H Total Hemoglobin 11.4 L O2 Delivery Device Ventilator O2 Liters/Min Not Reportable FiO2 30 Sodium 143 Potassium 4.4 Chloride 111 H Carbon Dioxide 26 Anion Gap 6 BUN 43 H Creatinine 1.39 H Estim Creat Clear Calc 51 Estimated GFR 52 L Glucose 120 H POC Capillary Glucose Calcium 8.4 Magnesium 2.3 Total Bilirubin 0.6 AST 29 ALT 16 Alkaline Phosphatase 79 Total Protein 6.0 L Albumin 3.2 L Vancomycin Trough 19.0 Quality VTE Prophylaxis VTE prophylaxis: pharmacologic ordered
--- NOTE | 2024-12-19 10:42 | PCFNICU ---
ICU Rounding Note: Pt current nutrition is Vital AF 12. at 50 ml/hr. Last recorded weight is 85.3 kg, weight change from 69kg. Nursing is reweighing. Bowel Motility: No BM reported-suppository given today. Labs Reviewed:Glu 120, Cr 1.39, BUN 43, Alb 3.2 Meds Noted: Protonix, Propofol 50 ppzz=716 kcal, Reglan, Folic Acid, Thiamine, Miralax, Protonix Skin: WNL Additional Notes: Patient remains on mechanical vent. Per nursing some elevated residuals reported, Reglan added. Tube feedings continue at 50 ml/hr of Vital AF 1.2. Total Nutrition with Propofol infusion: 1886 kcal/83 gm protein/892 ml water. Flush 125 kcal q 4 hours. Will continue to monitor Propofol infusion for any tube feeding rate change recommendations. Following daily in ICU rounds. Will monitor weight, labs, skin, diet orders, meds every Monday and Monday.
[2024-12-19 12:32] LABS: Glucose Point of Care 111 mg/dl (65-105)
[2024-12-19] MEDS: fentaNYL CITRATE INJ (*CRX) 100 MCG/2 ML VIAL 50 MCG IV PUSH (14:21)
[2024-12-19 18:13] LABS: Glucose Point of Care 101 mg/dl (65-105)
[2024-12-19] MEDS: SENNA/DOCUSATE SODIUM TABLET 1 TAB PO (20:21)
[2024-12-20] VITALS (51 sets, daily range): BP systolic 114–144; BP diastolic 69–92; PULSE 60–85; RESP 18–31; TEMP 36.7–37.4; O2SAT 92–100
[2024-12-20] MEDS: dexmedeTOMIDine 400 MCG/100 ML 400 MCG/100 ML BAG 26.25 MCG IV CONT ×7 (02:00→23:59)
[2024-12-20] MEDS: PROPOFOL IV EMULSION 100 ML 21.45 MG IV CONT ×2 (02:00→05:42)
[2024-12-20] MEDS: METOCLOPRAMIDE HCL 10 MG/10 ML SOLN UDC FEED TUBE ×4 (02:46→20:17)
[2024-12-20] MEDS: MEROPENEM 1 GM/NS 100 ML 1 GM/100 ML BAG IVPB ×3 (05:41→23:15)
[2024-12-20] MEDS: CENTRAL LINE FLUSH 10 ML IV PUSH ×3 (05:41→23:15)
[2024-12-20 06:15] LABS: Glucose Point of Care 111 mg/dl (65-105)
[2024-12-20] MEDS: IPRATROPIUM 0.5 MG/ALBUTEROL SULFATE 2.5 MG AMPUL.NEB 3 ML INHALATION ×3 (07:20→20:33)
--- NOTE | 2024-12-20 07:52 | P.PNINT_ITS ---
Progress Note: A&P Assessment and Plan (1) Acute respiratory failure: Code(s): J96.00 - Acute respiratory failure, unspecified whether with hypoxia or hypercapnia Status: Acute Assessment and Plan: 12/12: Acute respiratory failure/impending respiratory failure likely related to altered mentation secondary to alcohol withdrawal, respiratory distress due to pneumonia and influenza A, COPD/emphysema -12/12: Intubated in the ICU -currently on CMV mode of ventilation, peep of 8 and 30% FiO2, saturating 90 91% -continue bronchodilators given history of COPD -Sedated with propofol and fentanyl infusion, maintain RASS of 0 to -2, daily SBT and SAT -12/15: chest x-rays have not been improving so opted to obtain chest CT which is as under -12/16: Consulted pulmonology and patient had bronchoscopy. Culture sent -antibiotic and antiviral as below -sedation holiday was performed and patient placed on 5/8 PSV but patient became tachypneic with respiratory rate in 30s and failed his trial. -12/18 chest x-ray reviewed and appears worse. For further fluids - 12/18 for weaning trial as chest x-ray appears worsened patient has increased oxygen requirement -12/19 sedation holiday was performed patient not a candidate for weaning trial due to tachypnea tachycardia on loading sedation IV Lasix 12/20 chest x-ray pending, sedation holiday ordered -12/15: Repeat CT chest: IMPRESSION: Endotracheal tube, left IJ central venous line, NG tube, all in good position. Pulmonary opacities likely representing worsening atypical/viral infection. Small cavitary lesions noted in the right upper lobe. A component of aspiration could be considered given the presence of airway secretions/debris. Trace bilateral pleural effusions. Ascending aortic ectasia (2) Multifocal pneumonia: Code(s): J18.9 - Pneumonia, unspecified organism Status: Acute Assessment and Plan: 12/10: CT chest PE protocol was negative for PE, but showed bilateral multifocal pneumonia -chest x-ray also showed bilateral multifocal pneumonia -patient tested positive for influenza A 12/10: Blood cultures negative x2 12/12: Sputum cultures are negative 12/12: Nasal MRSA not detected -continue meropenem Completed doxycycline, Discontinue vancomycin (12/19) Completed course off Tamiflu (3) COPD with emphysema: Code(s): J43.9 - Emphysema, unspecified Status: Acute Assessment and Plan: History of COPD/emphysema See above (4) SVT (supraventricular tachycardia): Code(s): I47.10 - Supraventricular tachycardia, unspecified Status: Acute Assessment and Plan: Patient went into SVT on admission, appreciate cardiology evaluation and recommendation likely related to respiratory distress from pneumonia, influenza, alcohol withdrawal. -patient was started on metoprolol per tube by cardiology (12/13) -currently in sinus rhythm, rate controlled, patient does have intermittent SVTs which is short-lived Echo Summary 1. Complete two-dimensional, color flow and Doppler transthoracic echocardiogram is performed. 2. Technically difficult study with limited views as patient is supine, confused, and restrained with mittens. 3. Overall does appear to have normal biventricular size and systolic function. 4. There does not appear to be any significant valvular disease. (5) Alcohol withdrawal: Code(s): F10.939 - Alcohol use, unspecified with withdrawal, unspecified Status: Acute Assessment and Plan: Patient does have a history of significant alcohol use -in the IMU he had elevated CIWA score and received multiple doses of Ativan -12/12: when I evaluated the patient he was confused, tremulous, and was in alcohol withdrawal -currently intubated and sedated with propofol -continue Precedex -continue thiamine and folic acid (6) Electrolyte abnormality: Code(s): E87.8 - Other disorders of electrolyte and fluid balance, not elsewhere classified Status: Acute Assessment and Plan: Will replace electrolytes as needed (7) MICHELLE (acute kidney injury): Code(s): N17.9 - Acute kidney failure, unspecified Status: Acute Assessment and Plan: 12/17 Increase in creatinine as compared to yesterday. Patient was given IV albumin and IV fluids Discontinued vancomycin Monitor urine output electrolytes and creat (8) Ileus: Code(s): K56.7 - Ileus, unspecified Status: Acute Assessment and Plan: Decreased bowel sounds and slight abdominal distension on exam KUB does showed normal bowel gas pattern at this time Patient is tolerating tube feeding and had bowel movements. Will continue tube feed Continue MiraLax, add Dulcolax suppository Continue Reglan Fentanyl does has been lowered over last 1-2 days Plan DVT prophylaxis: Lovenox Stress ulcer prophylaxis: Protonix Nutrition: Tolerating tube feeds which will be continued Code Status: Full code I spoke to patient's daughter and son at bedside updated them patient's current status. I answered all their questions. Critical Care Time Spent: 32 minutes Due to a high probability of clinically significant, life threatening deterioration, the patient required my highest level of preparedness to intervene emergently and I personally spent this critical care time directly and personally managing the patient. This critical care time included obtaining a history; examining the patient; pulse oximetry; ordering and review of studies; arranging urgent treatment with development of a management plan; evaluation of patient's response to treatment; frequent reassessment; and discussions with other providers. It was exclusive of separately billable procedures and treating other patients and teaching time. Please see Assessment and Plan section and the rest of the note for further information on patient assessment and treatment This dictation may have been done utilizing a voice recognition system. Attempts have been made to correct errors. However, there may be uncorrected grammatical, spelling, and recognitions errors present. Subjective Date/time seen: 12/20/24 Overnight events reviewed. Afebrile Continues to be on mechanical ventilation 30% FiO2 Tolerating tube feed He had bowel movement yesterday Continues to be sedated with propofol fentanyl and Precedex Other Vitals acceptable Interval history: Reason for consult: Acute respiratory failure, pneumonia, influenza a, alcohol withdrawal, supraventricular tachycardia Review of Systems Review of Systems: ROS unobtainable: Yes unobtainable due to endotracheal tube, unobtainable due to medical condition and unobtainable due to mental status Exam Narrative: General: Intubated and sedated, in no acute distress HEENT:? Pupils equal and reactive, sclera is clear Neck:? Supple Respiratory:? Coarse breath sounds bilaterally, rales on upper lobes bilaterally, decreased air entry at bases, no wheezing Cardiac:? S1-S2 is normal, regular rate and rhythm Abdomen:? Soft, nontender, mildly distended, absent bowel sound Extremities:? No edema, palpable pedal pulses Neuro:? Intubated and sedated, on lowering sedation patient moved all 4 ex tremity but not follow any command she becomes respiratory rate going up to 40, increased heart rate and blood pressure Skin:? Warm and dry, bruising noted on bilateral upper and lower extremity Psych:? Unable to assess at this time Objective Data Vital Signs Vital Signs: Vital Signs - 24 hr 12/19/24 08:00 12/19/24 08:00 12/19/24 08:00 Temperature 37.9 C H Pulse Rate 79 79 Respiratory Rate 29 H 29 H Blood Pressure 136/81 Pulse Oximetry 90 90 Oxygen Delivery Mechanical Ventilation Fraction of Inspired Oxygen 30 30 12/19/24 08:00 12/19/24 08:00 12/19/24 08:00 Temperature Pulse Rate 79 79 79 Respiratory Rate 29 H 29 H 29 H Blood Pressure Pulse Oximetry Oxygen Delivery Fraction of Inspired Oxygen 12/19/24 08:00 12/19/24 08:00 12/19/24 08:24 Temperature Pulse Rate 79 80 85 Respiratory Rate 29 H 34 H Blood Pressure Pulse Oximetry Oxygen Delivery Fraction of Inspired Oxygen 12/19/24 08:24 12/19/24 08:31 12/19/24 08:34 Temperature Pulse Rate 85 84 92 Respiratory Rate 34 H 38 H 27 H Blood Pressure Pulse Oximetry Oxygen Delivery Fraction of Inspired Oxygen 12/19/24 08:34 12/19/24 08:41 12/19/24 09:18 Temperature Pulse Rate 78 78 79 Respiratory Rate 27 H Blood Pressure Pulse Oximetry 96 Oxygen Delivery Mechanical Ventilation Fraction of Inspired Oxygen 30 12/19/24 10:00 12/19/24 10:00 12/19/24 10:00 Temperature Pulse Rate 68 68 68 Respiratory Rate 24 H 24 H 24 H Blood Pressure Pulse Oximetry Oxygen Delivery Fraction of Inspired Oxygen 12/19/24 10:00 12/19/24 10:00 12/19/24 10:00 Temperature 37.4 C Pulse Rate 69 68 68 Respiratory Rate 24 H 23 H Blood Pressure 123/82 Pulse Oximetry 98 Oxygen Delivery Fraction of Inspired Oxygen 12/19/24 11:32 12/19/24 12:00 12/19/24 12:00 Temperature Pulse Rate 68 78 Respiratory Rate 28 H Blood Pressure Pulse Oximetry 96 93 Oxygen Delivery Mechanical Ventilation Mechanical Ventilation Fraction of Inspired Oxygen 30 30 30 12/19/24 12:00 12/19/24 12:00 12/19/24 12:00 Temperature 37.7 C H Pulse Rate 78 78 78 Respiratory Rate 28 H 28 H 28 H Blood Pressure 127/78 Pulse Oximetry 93 Oxygen Delivery Fraction of Inspired Oxygen 12/19/24 12:00 12/19/24 12:00 12/19/24 12:44 Temperature Pulse Rate 78 80 84 Respiratory Rate 28 H 33 H Blood Pressure Pulse Oximetry Oxygen Delivery Fraction of Inspired Oxygen 12/19/24 13:00 12/19/24 14:00 12/19/24 14:00 Temperature Pulse Rate 84 83 83 Respiratory Rate 33 H 30 H 30 H Blood Pressure 141/89 H Pulse Oximetry 90 Oxygen Delivery Fraction of Inspired Oxygen 12/19/24 14:00 12/19/24 14:00 12/19/24 14:00 Temperature Pulse Rate 83 83 83 Respiratory Rate 30 H 30 H 30 H Blood Pressure Pulse Oximetry Oxygen Delivery Fraction of Inspired Oxygen 12/19/24 14:00 12/19/24 14:21 12/19/24 15:40 Temperature Pulse Rate 82 85 71 Respiratory Rate 36 H Blood Pressure Pulse Oximetry 96 Oxygen Delivery Mechanical Ventilation Fraction of Inspired Oxygen 30 12/19/24 15:45 12/19/24 15:55 12/19/24 16:00 Temperature Pulse Rate 81 78 74 Respiratory Rate 27 H 26 H 23 H Blood Pressure Pulse Oximetry 90 Oxygen Delivery Mechanical Ventilation Fraction of Inspired Oxygen 30 12/19/24 16:00 12/19/24 16:00 12/19/24 16:00 Temperature Pulse Rate 74 74 74 Respiratory Rate 23 H 23 H 23 H Blood Pressure Pulse Oximetry Oxygen Delivery Fraction of Inspired Oxygen 12/19/24 16:00 12/19/24 16:00 12/19/24 16:00 Temperature 37.7 C H Pulse Rate 74 72 Respiratory Rate 23 H Blood Pressure 110/69 Pulse Oximetry 90 Oxygen Delivery Fraction of Inspired Oxygen 30 12/19/24 16:56 12/19/24 16:56 12/19/24 17:45 Temperature Pulse Rate 68 68 71 Respiratory Rate 21 H 21 H Blood Pressure Pulse Oximetry 93 Oxygen Delivery Mechanical Ventilation Fraction of Inspired Oxygen 30 12/19/24 17:58 12/19/24 17:58 12/19/24 17:58 Temperature Pulse Rate 79 79 79 Respiratory Rate 24 H 24 H 24 H Blood Pressure Pulse Oximetry Oxygen Delivery Fraction of Inspired Oxygen 12/19/24 17:59 12/19/24 18:00 12/19/24 18:00 Temperature Pulse Rate 79 76 76 Respiratory Rate 24 H 23 H Blood Pressure 131/80 Pulse Oximetry 94 Oxygen Delivery Fraction of Inspired Oxygen 12/19/24 19:00 12/19/24 19:00 12/19/24 19:00 Temperature Pulse Rate 87 87 87 Respiratory Rate 27 H 27 H 27 H Blood Pressure Pulse Oximetry Oxygen Delivery Fraction of Inspired Oxygen 12/19/24 20:00 12/19/24 20:00 12/19/24 20:00 Temperature 37.8 C H Pulse Rate 86 86 Respiratory Rate 27 H 27 H Blood Pressure 133/83 Pulse Oximetry 93 Oxygen Delivery Fraction of Inspired Oxygen 30 12/19/24 20:00 12/19/24 20:00 12/19/24 20:00 Temperature Pulse Rate 86 86 86 Respiratory Rate 27 H 27 H 27 H Blood Pressure Pulse Oximetry 93 Oxygen Delivery Mechanical Ventilation Fraction of Inspired Oxygen 30 12/19/24 20:00 12/19/24 20:29 12/19/24 20:35 Temperature Pulse Rate 83 83 83 Respiratory Rate 26 H Blood Pressure Pulse Oximetry 93 Oxygen Delivery Mechanical Ventilation Fraction of Inspired Oxygen 30 12/19/24 20:41 12/19/24 20:51 12/19/24 21:38 Temperature Pulse Rate 84 83 74 Respiratory Rate 26 H 25 H Blood Pressure Pulse Oximetry Oxygen Delivery Fraction of Inspired Oxygen 12/19/24 21:38 12/19/24 22:00 12/19/24 22:00 Temperature Pulse Rate 74 72 72 Respiratory Rate 25 H 23 H 23 H Blood Pressure Pulse Oximetry Oxygen Delivery Fraction of Inspired Oxygen 12/19/24 22:00 12/19/24 22:00 12/19/24 22:00 Temperature Pulse Rate 72 72 71 Respiratory Rate 23 H 23 H Blood Pressure Pulse Oximetry Oxygen Delivery Fraction of Inspired Oxygen 12/19/24 22:59 12/20/24 00:00 12/20/24 00:00 Temperature Pulse Rate 69 71 70 Respiratory Rate 23 H 20 Blood Pressure 126/79 Pulse Oximetry 94 93 Oxygen Delivery Mechanical Ventilation Fraction of Inspired Oxygen 30 12/20/24 00:00 12/20/24 00:00 12/20/24 00:00 Temperature 37.4 C Pulse Rate 70 70 Respiratory Rate 20 20 Blood Pressure 122/75 Pulse Oximetry 93 Oxygen Delivery Fraction of Inspired Oxygen 30 12/20/24 00:00 12/20/24 00:00 12/20/24 00:05 Temperature Pulse Rate 70 70 71 Respiratory Rate 20 20 Blood Pressure Pulse Oximetry 93 Oxygen Delivery Mechanical Ventilation Fraction of Inspired Oxygen 30 12/20/24 02:00 12/20/24 02:00 12/20/24 02:00 Temperature Pulse Rate 74 74 74 Respiratory Rate 24 H 24 H 24 H Blood Pressure Pulse Oximetry Oxygen Delivery Fraction of Inspired Oxygen 12/20/24 02:00 12/20/24 02:00 12/20/24 02:00 Temperature Pulse Rate 74 74 74 Respiratory Rate 24 H 24 H Blood Pressure Pulse Oximetry Oxygen Delivery Fraction of Inspired Oxygen 12/20/24 02:00 12/20/24 02:21 12/20/24 02:25 Temperature Pulse Rate 74 73 73 Respiratory Rate 23 H 22 H Blood Pressure 121/78 Pulse Oximetry 93 92 Oxygen Delivery Mechanical Ventilation Fraction of Inspired Oxygen 30 12/20/24 04:00 12/20/24 04:00 12/20/24 04:00 Temperature 36.9 C Pulse Rate 69 69 70 Respiratory Rate 21 H 21 H Blood Pressure 117/78 Pulse Oximetry 94 93 Oxygen Delivery Mechanical Ventilation Fraction of Inspired Oxygen 30 12/20/24 04:00 12/20/24 04:00 12/20/24 04:00 Temperature Pulse Rate 69 69 Respiratory Rate 21 H 21 H Blood Pressure Pulse Oximetry Oxygen Delivery Fraction of Inspired Oxygen 30 12/20/24 04:00 12/20/24 05:23 12/20/24 05:41 Temperature Pulse Rate 69 64 64 Respiratory Rate 21 H 20 Blood Pressure Pulse Oximetry 93 Oxygen Delivery Mechanical Ventilation Fraction of Inspired Oxygen 30 12/20/24 05:41 12/20/24 05:42 12/20/24 05:42 Temperature Pulse Rate 64 64 64 Respiratory Rate 20 20 20 Blood Pressure Pulse Oximetry Oxygen Delivery Fraction of Inspired Oxygen 12/20/24 06:00 12/20/24 06:00 12/20/24 06:00 Temperature Pulse Rate 65 65 65 Respiratory Rate 20 20 Blood Pressure 120/72 Pulse Oximetry 94 Oxygen Delivery Fraction of Inspired Oxygen 12/20/24 06:00 12/20/24 06:00 Temperature Pulse Rate 65 65 Respiratory Rate 20 20 Blood Pressure Pulse Oximetry Oxygen Delivery Fraction of Inspired Oxygen Intake/Output Intake/Output: Intake & Output 12/17/24 12/18/24 12/19/24 12/20/24 23:59 23:59 23:59 23:59 Intake Total 4585.2 3763.7 3070.1 1501.6 Output Total 1700 2550 3375 850 Balance 2885.2 1213.7 -304.9 651.6 Meds/Results Medications: Active Medications Generic Name Dose Route Start Last Admin Trade Name Freq PRN Reason Stop Dose Admin Acetaminophen 650 mg 12/11/24 07:58 12/18/24 16:00 Acetaminophen 325 Mg Tablet PO 650 mg Q4H PRN Administration Mild Pain (1-3) or Fever Albuterol 2 puff 12/11/24 00:26 Albuterol Sulfate (*Sp) Aerosol 1 Puff INHALATION QIDRT PRN shortness of breath or wheezing Albuterol/Ipratropium 3 ml 12/11/24 02:00 12/20/24 07:20 Ipratropium 0.5 Mg/Albuterol Sulfate 2.5 Mg Ampul.Neb 3 Ml INHALATION 3 ml Q6HRT SANTIAGO Administration Alteplase, Recombinant 2 mg 12/16/24 09:59 12/16/24 16:31 Alteplase 2 Mg Vial (Cathflo) IV PUSH 2 mg ONCE PRN Administration Line Occlusion Bisacodyl 10 mg 12/19/24 08:26 12/19/24 09:19 Bisacodyl 10 Mg Suppository RECTAL 10 mg QAM PRN Administration Constipation Dextrose 12.5 gm 12/11/24 11:48 Dextrose 50% 25 Gm/50 Ml Syringe IV PUSH PRN PRN Hypoglycemia Protocol Enoxaparin Sodium 40 mg 12/13/24 09:00 12/19/24 09:19 Enoxaparin 40 Mg/0.4 Ml Syringe SUB-Q 40 mg DAILY SANTIAGO Administration Fentanyl Citrate 50 mcg 12/12/24 23:31 12/19/24 14:21 Fentanyl Citrate Inj (*Crx) 100 Mcg/2 Ml Vial IV PUSH 50 mcg Q2H PRN Administration AGITATION WHILE ON VENT Folic Acid 1 mg 12/11/24 09:00 12/19/24 09:19 Folic Acid 1 Mg/0.2 Ml Inj IV PUSH 1 mg QAM SANTIAGO Administration Glucagon 1 mg 12/11/24 11:48 Glucagon For Inj 1 Mg Vial IM PRN PRN Hypoglycemia Protocol Glucose 15 gm 12/11/24 11:48 Glucose Oral Gel 15 Gm Of Glucse In 37.5 Gm Tube PO PRN PRN Hypoglycemia Protocol Dextrose 1,000 mls @ 100 mls/hr 12/11/24 11:48 Dextrose 5% 1,000 Ml IVPB PRN PRN Hypoglycemia Protocol Propofol 100 mls @ 21.45 mls/hr 12/12/24 09:55 12/20/24 06:00 Diprivan IV CONT 50 mcg/kg/min .Q4H40M SANTIAGO 21.45 mls/hr Titration Protocol 50 MCG/KG/MIN Fentanyl Citrate 2,500 mcg in 250 mls @ 5 mls/hr 12/13/24 08:15 12/20/24 06:00 Fentanyl 2,500 Mcg/Ns 250 Ml IV CONT 50 mcg/hr .Q50H SANTIAGO 5 mls/hr Titration Protocol 50 MCG/HR Meropenem 1 gm in 100 mls @ 200 mls/hr 12/16/24 13:00 12/20/24 05:41 IVPB 12/21/24 23:59 200 mls/hr Q8HR SANTIAGO Administration Dexmedetomidine HCl 400 mcg in 100 mls @ 26.25 mls/hr 12/17/24 12:45 12/20/24 06:00 Precedex 400 Mcg/100 Ml IV CONT 1.5 mcg/kg/hr .Q3H49M SANTIAGO 26.25 mls/hr Titration Protocol 1.5 MCG/KG/HR Levalbuterol HCl 0.63 mg 12/11/24 09:00 Levalbuterol Neb 1.25 Mg/3 Ml INHALATION Q6HRT PRN Dryness Metoclopramide HCl 10 mg 12/19/24 08:25 12/20/24 02:46 Metoclopramide Hcl 10 Mg/10 Ml Soln Udc FEED TUBE 10 mg Q6H SANTIAGO Administration Metoprolol Tartrate 5 mg 12/12/24 01:00 12/12/24 08:41 Metoprolol Tartrate Inj 5 Mg/5 Ml Vial IV PUSH 5 mg Q4H SANTIAGO Administration Metoprolol Tartrate 25 mg 12/13/24 21:00 12/19/24 20:51 Metoprolol Tartrate 25 Mg Tablet PO 25 mg Q12HR SANTIAGO Administration Multi-Ingred Cream/Lotion/Oil/Oint 1 applic 12/12/24 21:00 12/19/24 20:21 Mineral Oil/White Petrolatum Ointment EACH EYE 1 applic Q12HR SANTIAGO Administration Ondansetron HCl 4 mg 12/11/24 04:19 Ondansetron Inj 4 Mg/2 Ml Vial IV PUSH Q6H PRN Nausea And Vomiting Pantoprazole Sodium 40 mg 12/13/24 09:00 12/19/24 09:19 Pantoprazole Sodium Iv 40 Mg Vial IV PUSH 40 mg QAM SANTIAGO Administration Polyethylene Glycol 17 gm 12/16/24 10:22 12/19/24 09:18 Polyethylene Glycol 3350 17 Gm Powd.Pack PO 17 gm QAM SANTIAGO Administration Senna/Docusate Sodium 1 tab 12/16/24 21:00 12/19/24 20:21 Senna/Docusate Sodium Tablet PO 1 tab HS SANTIAGO Administration Sodium Chloride 20 ml 12/12/24 11:00 Central Line Flush IV PUSH PRN PRN after blood draws Sodium Chloride 10 ml 12/12/24 11:00 Central Line Flush IV PUSH PRN PRN with TPN bag changes Sodium Chloride 10 ml 12/13/24 14:00 12/20/24 05:41 Central Line Flush IV PUSH 10 ml Q8HR SANTIAGO Administration Sodium Chloride 20 ml 12/13/24 12:24 Central Line Flush IV PUSH PRN PRN after blood draws Thiamine HCl 100 mg 12/11/24 09:00 12/19/24 09:19 Thiamine Hcl 200 Mg/2 Ml Vial IV PUSH 100 mg QAM SANTIAGO Administration Radiology Results: ITS Impressions Chest CTA 12/10/24 19:15 IMPRESSION: No pulmonary embolism. No aortic dissection. Multifocal pneumonia. Chest CT 12/15/24 16:37 IMPRESSION: Endotracheal tube, left IJ central venous line, NG tube, all in good position. Pulmonary opacities likely representing worsening atypical/viral infection. Small cavitary lesions noted in the right upper lobe. A component of aspiration could be considered given the presence of airway secretions/debris. Trace bilateral pleural effusions. Ascending aortic ectasia. Abdomen X-Ray 12/18/24 14:59 IMPRESSION: 1. Normal bowel gas pattern. Labs Labs: Laboratory Results - last 24 hr 12/19/24 12/19/24 12/20/24 12:21 17:57 06:10 POC Capillary Glucose 111 H 101 111 H Quality VTE Prophylaxis VTE prophylaxis: pharmacologic ordered
[2024-12-20] MEDS: FOLIC ACID 1 MG/0.2 ML INJ IV PUSH (08:25)
[2024-12-20] MEDS: PANTOPRAZOLE SODIUM IV 40 MG VIAL IV PUSH (08:25)
[2024-12-20] MEDS: THIAMINE HCL 200 MG/2 ML VIAL 100 MG IV PUSH (08:25)
[2024-12-20] MEDS: ENOXAPARIN 40 MG/0.4 ML SYRINGE SUB-Q (08:29)
[2024-12-20] MEDS: polyethylene glycoL 3350 17 GM POWD.PACK PO (08:29)
[2024-12-20] MEDS: METOPROLOL TARTRATE 25 MG TABLET PO ×2 (08:29→20:17)
[2024-12-20] MEDS: MINERAL OIL/WHITE PETROLATUM OINTMENT 1 APPLIC EACH EYE ×2 (08:29→20:41)
[2024-12-20 08:30] LABS: Alveolar/Arterial O2 Gradient 100.8 mmHg; Base Excess ABG -0.2 mEq/l (+/-2.0); Fractional Inspired Oxygen 30 %; HCO3 ABG 24.5 mEq/l (22.0-26.0); Oxygen Content ABG 12.5 %vol (16.0-22.0); Oxygen Saturation ABG 93.2 % (95.0-100.0); Oxyhemoglobin 91.2 % THb (90.0-100.0); PO2 ABG 66.1 mmHg (80.0-100.0); Site Drawn RIGHT RADIAL; Total Hemoglobin 9.7 g/dL (12.0-18.0); pH ABG 7.405 (7.350-7.450)
[2024-12-20 08:31] LABS: Arterial Blood Gas PEEP 8 cmH2O; Arterial Blood Gas Vent Mode CMV; Arterial Blood Gas Ventilator rate 20 /MIN; Device VENTILATOR
[2024-12-20 08:32] LABS: Arterial Blood Gas Tidal Volume 480 ml
[2024-12-20 08:39] LABS: Hematocrit 28.8 % (42.0-52.0); Hemoglobin 9.2 g/dL (14.0-18.0); Mean Corpuscular HGB Conc 31.9 g/dl (32-36); Mean Corpuscular Volume 103.2 fl (80-100); Mean Platelet Volume 10.4 fl (7.4-10.4); Platelet Count Result 266 k/mm3 (150-375); Red Blood Count 2.79 M/mm3 (4.6-6.20); Red Cell Distribution Width 13.6 % (11.5-14.5); White Blood Count 6.5 K/mm3 (4.5-10.0)
[2024-12-20 08:50] LABS: Alanine Aminotransferase 20 U/L (6-50); Albumin Level 2.9 g/dL (3.5-5.1); Alkaline Phosphatase 82 U/L (38-126); Anion Gap 5 mmol/L (4-12); Aspartate Amino Transferase 29 U/L (17-59); Bilirubin,Total 0.4 mg/dL (0.2-1.3); Blood Urea Nitrogen 51 mg/dL (9-20); Calcium 8.2 mg/dL (8.4-10.2); Carbon Dioxide 28 mmol/L (22-30); Chloride 107 mmol/L (98-107); Estimated CRCL calculation 52 ml/min; Estimated Glomerular Filt Rate 51; Glucose 123 mg/dL (65-110); Magnesium 2.2 mg/dL (1.6-2.3); Potassium 4.1 mmol/L (3.4-5.0); Sodium 140 mmol/L (137-145)
[2024-12-20 08:51] LABS: Triglycerides 151 mg/dL (<150)
[2024-12-20 09:50] LABS: Arterial Blood Gas PEEP 8 cmH2O; Arterial Blood Gas Tidal Volume 480 ml; Arterial Blood Gas Vent Mode CMV; Arterial Blood Gas Ventilator rate 20 /MIN
--- NOTE | 2024-12-20 11:40 | PCNFU ---
Nutrition Follow-Up Complete: Suboptimal Nutrition as related to mechanical ventilation as evidenced by NPO. goal: Meet estimated nutritional needs. Patient is progressing towards goal. We will continue current goal. Pt current nutrition is Vital AF 1.2 at 50 ml/hr. Last recorded weight is 79 kg, up from 69 kg on admit. Bowel Motility: +BM reported 12/19 Labs Reviewed: Glu 123, Cr 1.4, BUN 51 Meds Noted:Thiamine, Folic, Acid, Protonix, Miralax, Meropenem, Reglan, Precedex, Fentanyl-paused. Propofol-paused. Skin: WNL Additional Notes: Patient remains on mechanican vent. Tube feedings are being tolerated of Vital AF 1.2. at 50 ml/hr. Flush 125 ml q 4 hours. Spoke with nursing, Propofol is paused at this time. Unsure if patient will resume Propofol. Total Nutrition: 1320 kcal/83 gm protein/892 ml water. Meeting 76% kcal needs and 100% protein needs. If propofol remains off recommend increasing tube feedings to 70 ml/hr has goal rate. Will monitor weight, labs, skin, diet orders, meds every Monday and Monday.
[2024-12-20] MEDS: PROPOFOL IV EMULSION 100 ML 12.87 MG IV CONT ×2 (14:07→20:15)
[2024-12-20] MEDS: FENTANYL 2,500MCG/NS250ML(*CRX 2,500 MCG/250 ML BAG IV CONT (14:10)
[2024-12-20 15:11] LABS: Glucose Point of Care 114 mg/dl (65-105)
[2024-12-20 18:42] LABS: Glucose Point of Care 128 mg/dl (65-105)
[2024-12-20] MEDS: SENNA/DOCUSATE SODIUM TABLET 1 TAB PO (20:16)
[2024-12-21] VITALS (39 sets, daily range): BP systolic 106–178; BP diastolic 67–101; PULSE 66–104; RESP 20–34; TEMP 36.9–38.1; O2SAT 92–100
[2024-12-21 00:01] LABS: Glucose Point of Care 103 mg/dl (65-105)
[2024-12-21] MEDS: IPRATROPIUM 0.5 MG/ALBUTEROL SULFATE 2.5 MG AMPUL.NEB 3 ML INHALATION ×4 (02:18→20:06)
[2024-12-21] MEDS: METOCLOPRAMIDE HCL 10 MG/10 ML SOLN UDC FEED TUBE ×4 (03:00→20:08)
[2024-12-21] MEDS: dexmedeTOMIDine 400 MCG/100 ML 400 MCG/100 ML BAG 26.25 MCG IV CONT ×6 (04:00→22:26)
[2024-12-21] MEDS: PROPOFOL IV EMULSION 100 ML 17.16 MG IV CONT (04:00)
[2024-12-21 05:19] LABS: Alveolar/Arterial O2 Gradient 96.4 mmHg; Base Excess ABG 1.2 mEq/l (+/-2.0); Carboxyhemoglobin 0.6 % THb (0-2.0); Fractional Inspired Oxygen 30 %; HCO3 ABG 25.9 mEq/l (22.0-26.0); Methemoglobin ABG 0.3 %THb (0-1.5); Oxygen Content ABG 14.7 %vol (16.0-22.0); Oxyhemoglobin 92.4 % THb (90.0-100.0); PCO2 ABG 41.4 mmHg (35.0-45.0); PO2 ABG 68.9 mmHg (80.0-100.0); Reduced Hemoglobin 6.7 %THb (0-5.0); Total Hemoglobin 11.3 g/dL (12.0-18.0); pH ABG 7.414 (7.350-7.450)
[2024-12-21 05:20] LABS: Arterial Blood Gas PEEP 8 cmH2O; Arterial Blood Gas Vent Mode CMV; Arterial Blood Gas Ventilator rate 20 /MIN; Device VENTILATOR; Modified Allen's Test Pass; Site Drawn RIGHT RADIAL
[2024-12-21 05:21] LABS: Arterial Blood Gas Tidal Volume 480 ml
[2024-12-21 05:34] LABS: Hematocrit 28.7 % (42.0-52.0); Hemoglobin 9.4 g/dL (14.0-18.0); Mean Corpuscular HGB Conc 32.8 g/dl (32-36); Mean Corpuscular Hemoglobin 33.3 pg (26-34); Mean Corpuscular Volume 101.8 fl (80-100); Mean Platelet Volume 10.2 fl (7.4-10.4); Platelet Count Result 279 k/mm3 (150-375); Red Blood Count 2.82 M/mm3 (4.6-6.20); Red Cell Distribution Width 13.5 % (11.5-14.5); White Blood Count 8.2 K/mm3 (4.5-10.0)
[2024-12-21] MEDS: MEROPENEM 1 GM/NS 100 ML 1 GM/100 ML BAG IVPB ×3 (05:48→21:15)
[2024-12-21] MEDS: CENTRAL LINE FLUSH 10 ML IV PUSH ×3 (05:48→20:08)
[2024-12-21 05:56] LABS: Alanine Aminotransferase 30 U/L (6-50); Albumin Level 2.9 g/dL (3.5-5.1); Alkaline Phosphatase 89 U/L (38-126); Anion Gap 7 mmol/L (4-12); Aspartate Amino Transferase 44 U/L (17-59); Bilirubin,Total 0.4 mg/dL (0.2-1.3); Blood Urea Nitrogen 50 mg/dL (9-20); Calcium 8.1 mg/dL (8.4-10.2); Carbon Dioxide 29 mmol/L (22-30); Chloride 107 mmol/L (98-107); Estimated CRCL calculation 54 ml/min; Estimated Glomerular Filt Rate 54; Glucose 107 mg/dL (65-110); Magnesium 2.3 mg/dL (1.6-2.3); Potassium 4.6 mmol/L (3.4-5.0); Sodium 143 mmol/L (137-145)
[2024-12-21] MEDS: METOPROLOL TARTRATE 25 MG TABLET PO ×2 (09:14→20:08)
[2024-12-21] MEDS: PANTOPRAZOLE SODIUM IV 40 MG VIAL IV PUSH (09:14)
[2024-12-21] MEDS: ENOXAPARIN 40 MG/0.4 ML SYRINGE SUB-Q (09:14)
[2024-12-21] MEDS: THIAMINE HCL 200 MG/2 ML VIAL 100 MG IV PUSH (09:14)
[2024-12-21] MEDS: polyethylene glycoL 3350 17 GM POWD.PACK PO (09:15)
[2024-12-21] MEDS: FOLIC ACID 1 MG/0.2 ML INJ IV PUSH (09:15)
[2024-12-21] MEDS: MINERAL OIL/WHITE PETROLATUM OINTMENT 1 APPLIC EACH EYE ×2 (09:15→20:08)
[2024-12-21] MEDS: PROPOFOL IV EMULSION 100 ML 8.58 MG IV CONT (09:28)
--- NOTE | 2024-12-21 10:47 | WPDINTPN ---
Progress Note: A&P Assessment and Plan (1) Acute respiratory failure: Code(s): J96.00 - Acute respiratory failure, unspecified whether with hypoxia or hypercapnia Status: Acute Assessment and Plan: 12/12: Acute respiratory failure/impending respiratory failure likely related to altered mentation secondary to alcohol withdrawal, respiratory distress due to pneumonia and influenza A, COPD/emphysema -12/12: Intubated in the ICU -currently on CMV mode of ventilation, peep of 8 and 30% FiO2, saturating 90 91% -continue bronchodilators given history of COPD -Sedated with propofol and fentanyl infusion, maintain RASS of 0 to -2, daily SBT and SAT -12/15: chest x-rays have not been improving so opted to obtain chest CT which is as under -12/16: Consulted pulmonology and patient had bronchoscopy. Culture sent -antibiotic and antiviral as below -sedation holiday was performed and patient placed on 5/8 PSV but patient became tachypneic with respiratory rate in 30s and failed his trial. -12/18 chest x-ray reviewed and appears worse. For further fluids - 12/18 for weaning trial as chest x-ray appears worsened patient has increased oxygen requirement -12/19 sedation holiday was performed patient not a candidate for weaning trial due to tachypnea tachycardia on loading sedation IV Lasix 12/20 chest x-ray pending, sedation holiday ordered. Patient was placed on PSV 04/03 she tolerated for only little bit of time and then became tachypneic with respiratory rate up to 40s. Patient was placed back on CMV and restarted on low-dose sedatives 12/21 sedation holiday was performed will attempt PSV weaning trial again. Lasix IV x1 today -12/15: Repeat CT chest: IMPRESSION: Endotracheal tube, left IJ central venous line, NG tube, all in good position. Pulmonary opacities likely representing worsening atypical/viral infection. Small cavitary lesions noted in the right upper lobe. A component of aspiration could be considered given the presence of airway secretions/debris. Trace bilateral pleural effusions. Ascending aortic ectasia (2) Multifocal pneumonia: Code(s): J18.9 - Pneumonia, unspecified organism Status: Acute Assessment and Plan: 12/10: CT chest PE protocol was negative for PE, but showed bilateral multifocal pneumonia -chest x-ray also showed bilateral multifocal pneumonia -patient tested positive for influenza A 12/10: Blood cultures negative x2 12/12: Sputum cultures are negative 12/12: Nasal MRSA not detected -continue meropenem Completed doxycycline, Discontinue vancomycin (12/19) Completed course off Tamiflu (3) COPD with emphysema: Code(s): J43.9 - Emphysema, unspecified Status: Acute Assessment and Plan: History of COPD/emphysema See above (4) SVT (supraventricular tachycardia): Code(s): I47.10 - Supraventricular tachycardia, unspecified Status: Acute Assessment and Plan: Patient went into SVT on admission, appreciate cardiology evaluation and recommendation likely related to respiratory distress from pneumonia, influenza, alcohol withdrawal. -patient was started on metoprolol per tube by cardiology (12/13) -currently in sinus rhythm, rate controlled, patient does have intermittent SVTs which is short-lived Echo Summary 1. Complete two-dimensional, color flow and Doppler transthoracic echocardiogram is performed. 2. Technically difficult study with limited views as patient is supine, confused, and restrained with mittens. 3. Overall does appear to have normal biventricular size and systolic function. 4. There does not appear to be any significant valvular disease. (5) Alcohol withdrawal: Code(s): F10.939 - Alcohol use, unspecified with withdrawal, unspecified Status: Acute Assessment and Plan: Patient does have a history of significant alcohol use -in the IMU he had elevated CIWA score and received multiple doses of Ativan -12/12: when I evaluated the patient he was confused, tremulous, and was in alcohol withdrawal -currently intubated and sedated with propofol -continue Precedex -continue thiamine and folic acid (6) Electrolyte abnormality: Code(s): E87.8 - Other disorders of electrolyte and fluid balance, not elsewhere classified Status: Acute Assessment and Plan: Will replace electrolytes as needed (7) MICHELLE (acute kidney injury): Code(s): N17.9 - Acute kidney failure, unspecified Status: Acute Assessment and Plan: 12/17 Increase in creatinine as compared to yesterday. Patient was given IV albumin and IV fluids Discontinued vancomycin Monitor urine output electrolytes and creat IV Lasix (8) Ileus: Code(s): K56.7 - Ileus, unspecified Status: Acute Assessment and Plan: Decreased bowel sounds and slight abdominal distension on exam KUB does showed normal bowel gas pattern at this time Patient is tolerating tube feeding and had bowel movements. Will continue tube feed Continue MiraLax, add Dulcolax suppository Continue Reglan Fentanyl does has been lowered over last 1-2 days Plan DVT prophylaxis: Lovenox Stress ulcer prophylaxis: Protonix Nutrition: Tolerating tube feeds which will be continued Code Status: Full code I spoke to patient's daughter and son at bedside updated them patient's current status. I answered all their questions. Critical Care Time Spent: 30 minutes Due to a high probability of clinically significant, life threatening deterioration, the patient required my highest level of preparedness to intervene emergently and I personally spent this critical care time directly and personally managing the patient. This critical care time included obtaining a history; examining the patient; pulse oximetry; ordering and review of studies; arranging urgent treatment with development of a management plan; evaluation of patient's response to treatment; frequent reassessment; and discussions with other providers. It was exclusive of separately billable procedures and treating other patients and teaching time. Please see Assessment and Plan section and the rest of the note for further information on patient assessment and treatment This dictation may have been done utilizing a voice recognition system. Attempts have been made to correct errors. However, there may be uncorrected grammatical, spelling, and recognitions errors present. Subjective Date/time seen: 12/21/24 Overnight events reviewed. Afebrile overnight but 1 episode of fever this morning Continues to be on mechanical ventilation 30% FiO2 Tolerating tube feed Continues to be sedated with fentanyl propofol and Precedex On Vitals acceptable No bowel movements overnight Interval history: Reason for consult: Acute respiratory failure, pneumonia, influenza a, alcohol withdrawal, supraventricular tachycardia Review of Systems Review of Systems: ROS unobtainable: Yes unobtainable due to endotracheal tube, unobtainable due to medical condition and unobtainable due to mental status Exam Narrative: General: Intubated and sedated, in no acute distress HEENT:? Pupils equal and reactive, sclera is clear Neck:? Supple Respiratory:? Coarse breath sounds bilaterally, rales on upper lobes bilaterally, decreased air entry at bases, no wheezing Cardiac:? S1-S2 is normal, regular rate and rhythm Abdomen:? Soft, nontender, mildly distended, absent bowel sound Extremities:? No edema, palpable pedal pulses Neuro:? Intubated and sedated, on lowering sedation patient moved all 4 extremity but did not t follow any command for me. Will discontinue propofol completely and reassess. Skin:? Warm and dry, bruising noted on bilateral upper and lower extremity Psych:? Unable to assess at this time Objective Data Vital Signs Vital Signs: Vital Signs - 24 hr 12/20/24 11:15 12/20/24 12:00 12/20/24 12:00 Temperature Pulse Rate 70 82 72 Respiratory Rate 22 H 24 H Blood Pressure Pulse Oximetry 95 Oxygen Delivery Mechanical Ventilation Fraction of Inspired Oxygen 30 12/20/24 12:00 12/20/24 12:00 12/20/24 12:05 Temperature 37.2 C Pulse Rate 74 73 79 Respiratory Rate 23 H 23 H Blood Pressure 143/89 H Pulse Oximetry 93 Oxygen Delivery Fraction of Inspired Oxygen 12/20/24 12:10 12/20/24 12:15 12/20/24 12:15 Temperature Pulse Rate 77 76 77 Respiratory Rate 25 H 30 H 30 H Blood Pressure Pulse Oximetry Oxygen Delivery Fraction of Inspired Oxygen 12/20/24 12:44 12/20/24 12:45 12/20/24 12:45 Temperature Pulse Rate 79 80 80 Respiratory Rate 26 H 26 H 26 H Blood Pressure Pulse Oximetry Oxygen Delivery Fraction of Inspired Oxygen 12/20/24 12:50 12/20/24 13:05 12/20/24 13:05 Temperature Pulse Rate 75 74 74 Respiratory Rate 25 H 24 H Blood Pressure Pulse Oximetry 94 Oxygen Delivery Mechanical Ventilation Fraction of Inspired Oxygen 30 12/20/24 13:15 12/20/24 14:00 12/20/24 14:00 Temperature Pulse Rate 73 71 72 Respiratory Rate 24 H 21 H Blood Pressure 139/91 H Pulse Oximetry 94 Oxygen Delivery Fraction of Inspired Oxygen 12/20/24 14:07 12/20/24 14:07 12/20/24 14:10 Temperature Pulse Rate 71 71 71 Respiratory Rate 21 H 22 H 21 H Blood Pressure Pulse Oximetry Oxygen Delivery Fraction of Inspired Oxygen 12/20/24 14:10 12/20/24 16:00 12/20/24 16:00 Temperature 36.7 C Pulse Rate 71 60 Respiratory Rate 21 H Blood Pressure Pulse Oximetry Oxygen Delivery Fraction of Inspired Oxygen 12/20/24 16:05 12/20/24 16:11 12/20/24 16:34 Temperature Pulse Rate 62 60 60 Respiratory Rate 18 20 Blood Pressure 130/79 Pulse Oximetry 94 95 Oxygen Delivery Mechanical Ventilation Fraction of Inspired Oxygen 30 12/20/24 16:53 12/20/24 18:00 12/20/24 18:00 Temperature Pulse Rate 60 73 70 Respiratory Rate 20 21 H Blood Pressure 114/69 Pulse Oximetry 94 Oxygen Delivery Fraction of Inspired Oxygen 12/20/24 20:00 12/20/24 20:00 12/20/24 20:00 Temperature Pulse Rate 70 70 70 Respiratory Rate 22 H 22 H 22 H Blood Pressure Pulse Oximetry Oxygen Delivery Fraction of Inspired Oxygen 12/20/24 20:00 12/20/24 20:00 12/20/24 20:00 Temperature Pulse Rate 75 Respiratory Rate Blood Pressure Pulse Oximetry 94 Oxygen Delivery Mechanical Ventilation Fraction of Inspired Oxygen 30 12/20/24 20:00 12/20/24 20:15 12/20/24 20:15 Temperature 36.9 C Pulse Rate 75 73 73 Respiratory Rate 25 H 26 H 26 H Blood Pressure 133/84 Pulse Oximetry 95 Oxygen Delivery Fraction of Inspired Oxygen 12/20/24 20:17 12/20/24 20:20 12/20/24 20:20 Temperature Pulse Rate 73 75 75 Respiratory Rate 24 H 24 H Blood Pressure Pulse Oximetry Oxygen Delivery Fraction of Inspired Oxygen 12/20/24 20:33 12/20/24 20:43 12/20/24 20:43 Temperature Pulse Rate 73 71 71 Respiratory Rate 24 H 23 H 28 H Blood Pressure Pulse Oximetry Oxygen Delivery Fraction of Inspired Oxygen 12/20/24 20:56 12/20/24 22:00 12/20/24 22:00 Temperature Pulse Rate 73 78 78 Respiratory Rate 29 H 29 H Blood Pressure Pulse Oximetry 95 Oxygen Delivery Mechanical Ventilation Fraction of Inspired Oxygen 30 12/20/24 22:00 12/20/24 22:00 12/20/24 22:00 Temperature Pulse Rate 78 78 78 Respiratory Rate 29 H 29 H Blood Pressure 144/92 H Pulse Oximetry 94 Oxygen Delivery Fraction of Inspired Oxygen 12/20/24 23:17 12/20/24 23:30 12/20/24 23:46 Temperature Pulse Rate 79 81 Respiratory Rate 25 H Blood Pressure Pulse Oximetry 100 94 Oxygen Delivery Mechanical Ventilation Mechanical Ventilation Fraction of Inspired Oxygen 30 12/20/24 23:59 12/20/24 23:59 12/21/24 00:00 Temperature Pulse Rate 85 85 85 Respiratory Rate 30 H 30 H 30 H Blood Pressure Pulse Oximetry Oxygen Delivery Fraction of Inspired Oxygen 12/21/24 00:00 12/21/24 00:00 12/21/24 00:00 Temperature Pulse Rate 85 85 Respiratory Rate 30 H 30 H Blood Pressure Pulse Oximetry Oxygen Delivery Fraction of Inspired Oxygen 30 12/21/24 00:00 12/21/24 00:00 12/21/24 02:00 Temperature 36.9 C Pulse Rate 84 84 86 Respiratory Rate 26 H Blood Pressure 163/97 H Pulse Oximetry 93 Oxygen Delivery Fraction of Inspired Oxygen 12/21/24 02:00 12/21/24 02:00 12/21/24 02:00 Temperature Pulse Rate 86 85 85 Respiratory Rate 26 H 26 H 26 H Blood Pressure 157/91 H Pulse Oximetry 94 Oxygen Delivery Fraction of Inspired Oxygen 12/21/24 02:00 12/21/24 02:18 12/21/24 02:23 Temperature Pulse Rate 85 79 78 Respiratory Rate 26 H 21 H Blood Pressure Pulse Oximetry 93 Oxygen Delivery Mechanical Ventilation Fraction of Inspired Oxygen 30 12/21/24 02:26 12/21/24 04:00 12/21/24 04:00 Temperature Pulse Rate 78 Respiratory Rate 20 Blood Pressure Pulse Oximetry 94 Oxygen Delivery Mechanical Ventilation Fraction of Inspired Oxygen 30 12/21/24 04:00 12/21/24 04:00 12/21/24 04:00 Temperature Pulse Rate 84 84 84 Respiratory Rate 24 H 24 H 24 H Blood Pressure Pulse Oximetry Oxygen Delivery Fraction of Inspired Oxygen 12/21/24 04:00 12/21/24 04:00 12/21/24 04:00 Temperature 37.2 C Pulse Rate 84 84 84 Respiratory Rate 24 H 24 H 24 H Blood Pressure 147/87 H Pulse Oximetry 94 Oxygen Delivery Fraction of Inspired Oxygen 12/21/24 04:00 12/21/24 04:00 12/21/24 05:00 Temperature Pulse Rate 84 85 78 Respiratory Rate 24 H Blood Pressure Pulse Oximetry 95 Oxygen Delivery Mechanical Ventilation Fraction of Inspired Oxygen 30 12/21/24 05:48 12/21/24 06:00 12/21/24 06:00 Temperature Pulse Rate 94 84 86 Respiratory Rate 32 H 24 H Blood Pressure 138/82 Pulse Oximetry 94 Oxygen Delivery Fraction of Inspired Oxygen 12/21/24 06:00 12/21/24 06:00 12/21/24 06:00 Temperature Pulse Rate 86 84 86 Respiratory Rate 24 H 24 H 24 H Blood Pressure Pulse Oximetry Oxygen Delivery Fraction of Inspired Oxygen 12/21/24 07:49 12/21/24 07:49 12/21/24 08:00 Temperature Pulse Rate 81 81 87 Respiratory Rate 24 H 24 H 20 Blood Pressure Pulse Oximetry Oxygen Delivery Fraction of Inspired Oxygen 12/21/24 08:00 12/21/24 08:00 12/21/24 08:00 Temperature Pulse Rate 87 87 Respiratory Rate 20 20 Blood Pressure Pulse Oximetry 94 Oxygen Delivery Mechanical Ventilation Fraction of Inspired Oxygen 12/21/24 08:00 12/21/24 08:00 12/21/24 08:00 Temperature 38.1 C H Pulse Rate 87 83 Respiratory Rate 23 H Blood Pressure 140/82 Pulse Oximetry 94 Oxygen Delivery Fraction of Inspired Oxygen 30 12/21/24 08:02 12/21/24 08:02 12/21/24 08:18 Temperature Pulse Rate 85 85 84 Respiratory Rate 24 H 22 H Blood Pressure Pulse Oximetry 94 Oxygen Delivery Mechanical Ventilation Fraction of Inspired Oxygen 30 12/21/24 09:14 12/21/24 09:28 12/21/24 09:28 Temperature Pulse Rate 82 88 88 Respiratory Rate 29 H 29 H Blood Pressure Pulse Oximetry Oxygen Delivery Fraction of Inspired Oxygen 12/21/24 10:00 12/21/24 10:00 12/21/24 10:00 Temperature Pulse Rate 80 80 80 Respiratory Rate 27 H 27 H Blood Pressure 155/97 H Pulse Oximetry 94 Oxygen Delivery Fraction of Inspired Oxygen 12/21/24 10:00 12/21/24 10:00 12/21/24 10:44 Temperature Pulse Rate 80 80 78 Respiratory Rate 27 H 27 H 25 H Blood Pressure Pulse Oximetry Oxygen Delivery Fraction of Inspired Oxygen Intake/Output Intake/Output: Intake & Output 12/18/24 12/19/24 12/20/24 12/21/24 23:59 23:59 23:59 23:59 Intake Total 3763.7 3070.1 3277.6 1294.0 Output Total 2550 3375 1660 1150 Balance 1213.7 -304.9 1617.6 144.0 Meds/Results Medications: Active Medications Generic Name Dose Route Start Last Admin Trade Name Freq PRN Reason Stop Dose Admin Acetaminophen 650 mg 12/11/24 07:58 12/18/24 16:00 Acetaminophen 325 Mg Tablet PO 650 mg Q4H PRN Administration Mild Pain (1-3) or Fever Albuterol 2 puff 12/11/24 00:26 Albuterol Sulfate (*Sp) Aerosol 1 Puff INHALATION QIDRT PRN shortness of breath or wheezing Albuterol/Ipratropium 3 ml 12/11/24 02:00 12/21/24 08:01 Ipratropium 0.5 Mg/Albuterol Sulfate 2.5 Mg Ampul.Neb 3 Ml INHALATION 3 ml Q6HRT SANTIAGO Administration Alteplase, Recombinant 2 mg 12/16/24 09:59 12/16/24 16:31 Alteplase 2 Mg Vial (Cathflo) IV PUSH 2 mg ONCE PRN Administration Line Occlusion Bisacodyl 10 mg 12/19/24 08:26 12/19/24 09:19 Bisacodyl 10 Mg Suppository RECTAL 10 mg QAM PRN Administration Constipation Dextrose 12.5 gm 12/11/24 11:48 Dextrose 50% 25 Gm/50 Ml Syringe IV PUSH PRN PRN Hypoglycemia Protocol Enoxaparin Sodium 40 mg 12/13/24 09:00 12/21/24 09:14 Enoxaparin 40 Mg/0.4 Ml Syringe SUB-Q 40 mg DAILY SANTIAGO Administration Fentanyl Citrate 50 mcg 12/12/24 23:31 12/19/24 14:21 Fentanyl Citrate Inj (*Crx) 100 Mcg/2 Ml Vial IV PUSH 50 mcg Q2H PRN Administration AGITATION WHILE ON VENT Folic Acid 1 mg 12/11/24 09:00 12/21/24 09:15 Folic Acid 1 Mg/0.2 Ml Inj IV PUSH 1 mg QAM SANTIAGO Administration Glucagon 1 mg 12/11/24 11:48 Glucagon For Inj 1 Mg Vial IM PRN PRN Hypoglycemia Protocol Glucose 15 gm 12/11/24 11:48 Glucose Oral Gel 15 Gm Of Glucse In 37.5 Gm Tube PO PRN PRN Hypoglycemia Protocol Dextrose 1,000 mls @ 100 mls/hr 12/11/24 11:48 Dextrose 5% 1,000 Ml IVPB PRN PRN Hypoglycemia Protocol Propofol 100 mls @ 0 mls/hr 12/12/24 09:55 12/21/24 10:44 Diprivan IV CONT 0 mcg/kg/min .Q0M SANTIAGO 0 mls/hr Titration Protocol Fentanyl Citrate 2,500 mcg in 250 mls @ 0 mls/hr 12/13/24 08:15 12/21/24 10:00 Fentanyl 2,500 Mcg/Ns 250 Ml IV CONT 0 mcg/hr .Q0M SANTIAGO 0 mls/hr Titration Protocol Meropenem 1 gm in 100 mls @ 200 mls/hr 12/16/24 13:00 12/21/24 07:21 IVPB 12/21/24 23:59 Infused Q8HR SANTIAGO Infusion Dexmedetomidine HCl 400 mcg in 100 mls @ 26.25 mls/hr 12/17/24 12:45 12/21/24 10:00 Precedex 400 Mcg/100 Ml IV CONT 1.5 mcg/kg/hr .Q3H49M SANTIAGO 26.25 mls/hr Titration Protocol 1.5 MCG/KG/HR Levalbuterol HCl 0.63 mg 12/11/24 09:00 Levalbuterol Neb 1.25 Mg/3 Ml INHALATION Q6HRT PRN Dryness Metoclopramide HCl 10 mg 12/19/24 08:25 12/21/24 09:15 Metoclopramide Hcl 10 Mg/10 Ml Soln Udc FEED TUBE 10 mg Q6H SANTIAGO Administration Metoprolol Tartrate 5 mg 12/12/24 01:00 12/12/24 08:41 Metoprolol Tartrate Inj 5 Mg/5 Ml Vial IV PUSH 5 mg Q4H SANTIAGO Administration Metoprolol Tartrate 25 mg 12/13/24 21:00 12/21/24 09:14 Metoprolol Tartrate 25 Mg Tablet PO 25 mg Q12HR SANTIAGO Administration Multi-Ingred Cream/Lotion/Oil/Oint 1 applic 12/12/24 21:00 12/21/24 09:15 Mineral Oil/White Petrolatum Ointment EACH EYE 1 applic Q12HR SANTIAGO Administration Ondansetron HCl 4 mg 12/11/24 04:19 Ondansetron Inj 4 Mg/2 Ml Vial IV PUSH Q6H PRN Nausea And Vomiting Pantoprazole Sodium 40 mg 12/13/24 09:00 12/21/24 09:14 Pantoprazole Sodium Iv 40 Mg Vial IV PUSH 40 mg QAM SANTIAGO Administration Polyethylene Glycol 17 gm 12/16/24 10:22 12/21/24 09:15 Polyethylene Glycol 3350 17 Gm Powd.Pack PO 17 gm QAM SANTIAGO Administration Senna/Docusate Sodium 1 tab 12/16/24 21:00 12/20/24 20:16 Senna/Docusate Sodium Tablet PO 1 tab HS SANTIAGO Administration Sodium Chloride 20 ml 12/12/24 11:00 Central Line Flush IV PUSH PRN PRN after blood draws Sodium Chloride 10 ml 12/12/24 11:00 Central Line Flush IV PUSH PRN PRN with TPN bag changes Sodium Chloride 10 ml 12/13/24 14:00 12/21/24 05:48 Central Line Flush IV PUSH 10 ml Q8HR SANTIAGO Administration Sodium Chloride 20 ml 12/13/24 12:24 Central Line Flush IV PUSH PRN PRN after blood draws Thiamine HCl 100 mg 12/11/24 09:00 12/21/24 09:14 Thiamine Hcl 200 Mg/2 Ml Vial IV PUSH 100 mg QAM SANTIAGO Administration Radiology Results: ITS Impressions Chest CTA 12/10/24 19:15 IMPRESSION: No pulmonary embolism. No aortic dissection. Multifocal pneumonia. Chest CT 12/15/24 16:37 IMPRESSION: Endotracheal tube, left IJ central venous line, NG tube, all in good position. Pulmonary opacities likely representing worsening atypical/viral infection. Small cavitary lesions noted in the right upper lobe. A component of aspiration could be considered given the presence of airway secretions/debris. Trace bilateral pleural effusions. Ascending aortic ectasia. Abdomen X-Ray 12/18/24 14:59 IMPRESSION: 1. Normal bowel gas pattern. Chest X-Ray 12/21/24 06:55 IMPRESSION: 1. Unchanged scattered diffuse bilateral lung disease consistent with pneumonia. Labs Labs: Laboratory Results - last 24 hr 12/20/24 12/20/24 12/20/24 11:36 18:37 23:57 WBC RBC Hgb Hct MCV MCH MCHC RDW Plt Count MPV Puncture Site ABG pH ABG pCO2 ABG pO2 ABG PO2/FiO2 Ratio ABG HCO3 ABG O2 Saturation ABG O2 Content ABG Base Excess A-a Gradient Oxyhemoglobin Carboxyhemoglobin Methemoglobin Reduced Hemoglobin Total Hemoglobin O2 Delivery Device O2 Liters/Min Minute Volume Vent Rate Vent Mode FiO2 Tidal Volume PEEP Peak Inspir Pressure Pressure Support Sodium Potassium Chloride Carbon Dioxide Anion Gap BUN Creatinine Estim Creat Clear Calc Estimated GFR Glucose POC Capillary Glucose 114 H 128 H 103 Calcium Magnesium Total Bilirubin AST ALT Alkaline Phosphatase Total Protein Albumin 12/21/24 12/21/24 05:03 05:21 WBC 8.2 RBC 2.82 L Hgb 9.4 L Hct 28.7 L MCV 101.8 H MCH 33.3 MCHC 32.8 RDW 13.5 Plt Count 279 MPV 10.2 Puncture Site Right radial ABG pH 7.414 ABG pCO2 41.4 ABG pO2 68.9 L ABG PO2/FiO2 Ratio 2.30 ABG HCO3 25.9 ABG O2 Saturation 94.0 L ABG O2 Content 14.7 L ABG Base Excess 1.2 A-a Gradient 96.4 Oxyhemoglobin 92.4 Carboxyhemoglobin 0.6 Methemoglobin 0.3 Reduced Hemoglobin 6.7 H Total Hemoglobin 11.3 L O2 Delivery Device Ventilator O2 Liters/Min Not Reportable Minute Volume Not Reportable Vent Rate 20 Vent Mode Cmv FiO2 30 Tidal Volume 480 PEEP 8 Peak Inspir Pressure Not Reportable Pressure Support Not Reportable Sodium 143 Potassium 4.6 Chloride 107 Carbon Dioxide 29 Anion Gap 7 BUN 50 H Creatinine 1.33 H Estim Creat Clear Calc 54 Estimated GFR 54 L Glucose 107 POC Capillary Glucose Calcium 8.1 L Magnesium 2.3 Total Bilirubin 0.4 AST 44 ALT 30 Alkaline Phosphatase 89 Total Protein 6.0 L Albumin 2.9 L Quality VTE Prophylaxis VTE prophylaxis: pharmacologic ordered
[2024-12-21] MEDS: FUROSEMIDE INJ 40 MG/4 ML VIAL IV PUSH (11:34)
[2024-12-21 11:53] LABS: Glucose Point of Care 119 mg/dl (65-105)
[2024-12-21] MEDS: hydrALAZINE HCL 20 MG/ML VIAL IV PUSH (15:11)
[2024-12-21] MEDS: fentaNYL CITRATE INJ (*CRX) 100 MCG/2 ML VIAL 50 MCG IV PUSH (15:25)
[2024-12-21 17:56] LABS: Glucose Point of Care 120 mg/dl (65-105)
[2024-12-21] MEDS: SENNA/DOCUSATE SODIUM TABLET 1 TAB PO (20:08)
[2024-12-21] MEDS: PROPOFOL IV EMULSION 100 ML 12.87 MG IV CONT (21:23)
[2024-12-21 23:52] LABS: Glucose Point of Care 127 mg/dl (65-105)
[2024-12-22] VITALS (48 sets, daily range): BP systolic 112–180; BP diastolic 68–111; PULSE 60–93; RESP 11–33; TEMP 36.9–37.3; O2SAT 92–98
[2024-12-22] MEDS: dexmedeTOMIDine 400 MCG/100 ML 400 MCG/100 ML BAG 26.25 MCG IV CONT ×3 (02:07→09:27)
[2024-12-22] MEDS: IPRATROPIUM 0.5 MG/ALBUTEROL SULFATE 2.5 MG AMPUL.NEB 3 ML INHALATION ×4 (02:08→20:15)
[2024-12-22] MEDS: METOCLOPRAMIDE HCL 10 MG/10 ML SOLN UDC FEED TUBE ×2 (02:10→08:14)
[2024-12-22] MEDS: PROPOFOL IV EMULSION 100 ML 12.87 MG IV CONT (03:33)
[2024-12-22 05:02] LABS: Alveolar/Arterial O2 Gradient 91.5 mmHg; Base Excess ABG 5.3 mEq/l (+/-2.0); Carboxyhemoglobin 0.6 % THb (0-2.0); Fractional Inspired Oxygen 30 %; HCO3 ABG 30.1 mEq/l (22.0-26.0); Oxygen Saturation ABG 94.3 % (95.0-100.0); Oxyhemoglobin 93.1 % THb (90.0-100.0); PCO2 ABG 45.4 mmHg (35.0-45.0); PO2 ABG 69.1 mmHg (80.0-100.0); Reduced Hemoglobin 6.3 %THb (0-5.0); Total Hemoglobin 9.9 g/dL (12.0-18.0); pH ABG 7.439 (7.350-7.450)
[2024-12-22 05:04] LABS: Arterial Blood Gas PEEP 8 cmH2O; Arterial Blood Gas Tidal Volume 480 ml; Arterial Blood Gas Vent Mode CMV; Arterial Blood Gas Ventilator rate 20 /MIN; Device VENTILATOR; Site Drawn RIGHT BRACHIAL
[2024-12-22] MEDS: CENTRAL LINE FLUSH 10 ML IV PUSH ×3 (05:34→20:13)
[2024-12-22 05:50] LABS: Hemoglobin 9.5 g/dL (14.0-18.0); Mean Corpuscular HGB Conc 32.8 g/dl (32-36); Mean Corpuscular Hemoglobin 33.5 pg (26-34); Mean Corpuscular Volume 102.1 fl (80-100); Platelet Count Result 274 k/mm3 (150-375); Red Blood Count 2.84 M/mm3 (4.6-6.20); Red Cell Distribution Width 13.3 % (11.5-14.5); White Blood Count 6.3 K/mm3 (4.5-10.0)
[2024-12-22 06:02] LABS: Alanine Aminotransferase 28 U/L (6-50); Albumin Level 2.9 g/dL (3.5-5.1); Alkaline Phosphatase 87 U/L (38-126); Anion Gap 5 mmol/L (4-12); Aspartate Amino Transferase 34 U/L (17-59); Bilirubin,Total 0.4 mg/dL (0.2-1.3); Blood Urea Nitrogen 48 mg/dL (9-20); Calcium 8.3 mg/dL (8.4-10.2); Carbon Dioxide 31 mmol/L (22-30); Chloride 107 mmol/L (98-107); Estimated CRCL calculation 55 ml/min; Estimated Glomerular Filt Rate 55; Glucose 132 mg/dL (65-110); Magnesium 2.3 mg/dL (1.6-2.3); Potassium 3.8 mmol/L (3.4-5.0); Sodium 143 mmol/L (137-145); Triglycerides 197 mg/dL (<150)
[2024-12-22] MEDS: METOPROLOL TARTRATE 25 MG TABLET PO ×2 (08:14→20:01)
[2024-12-22] MEDS: POTASSIUM BICARBONATE 25 MEQ TABEF 50 MEQ FEED TUBE (08:14)
[2024-12-22] MEDS: polyethylene glycoL 3350 17 GM POWD.PACK PO (08:14)
[2024-12-22] MEDS: FUROSEMIDE INJ 40 MG/4 ML VIAL IV PUSH (08:14)
[2024-12-22] MEDS: THIAMINE HCL 200 MG/2 ML VIAL 100 MG IV PUSH (08:14)
[2024-12-22] MEDS: PANTOPRAZOLE SODIUM IV 40 MG VIAL IV PUSH (08:14)
[2024-12-22] MEDS: FOLIC ACID 1 MG/0.2 ML INJ IV PUSH (08:14)
[2024-12-22] MEDS: MINERAL OIL/WHITE PETROLATUM OINTMENT 1 APPLIC EACH EYE (08:15)
[2024-12-22] MEDS: ENOXAPARIN 40 MG/0.4 ML SYRINGE SUB-Q (08:15)
[2024-12-22 10:11] LABS: Alveolar/Arterial O2 Gradient 94.8 mmHg; Base Excess ABG 5.4 mEq/l (+/-2.0); Fractional Inspired Oxygen 30 %; HCO3 ABG 29.6 mEq/l (22.0-26.0); Oxygen Content ABG 16.2 %vol (16.0-22.0); Oxyhemoglobin 93.2 % THb (90.0-100.0); PCO2 ABG 41.7 mmHg (35.0-45.0); PO2 ABG 70.1 mmHg (80.0-100.0); PO2 FiO2 Ratio Arterial Blood 2.34 %; Total Hemoglobin 12.3 g/dL (12.0-18.0); pH ABG 7.469 (7.350-7.450)
[2024-12-22 10:12] LABS: Device VENTILATOR; Site Drawn RIGHT RADIAL
[2024-12-22 10:13] LABS: Arterial Blood Gas PEEP 8 cmH2O; Arterial Blood Gas Vent Mode SPONTANEOUS
[2024-12-22 10:14] LABS: Arterial Blood Gas Pressure Support 5 cmH2O
--- NOTE | 2024-12-22 11:09 | P.PNINT_ITS ---
Progress Note: A&P Assessment and Plan (1) Acute respiratory failure: Code(s): J96.00 - Acute respiratory failure, unspecified whether with hypoxia or hypercapnia Status: Acute Assessment and Plan: 12/12: Acute respiratory failure/impending respiratory failure likely related to altered mentation secondary to alcohol withdrawal, respiratory distress due to pneumonia and influenza A, COPD/emphysema -12/12: Intubated in the ICU -currently on CMV mode of ventilation, peep of 8 and 30% FiO2, saturating 90 91% -continue bronchodilators given history of COPD -Sedated with propofol and fentanyl infusion, maintain RASS of 0 to -2, daily SBT and SAT -12/15: chest x-rays have not been improving so opted to obtain chest CT which is as under -12/16: Consulted pulmonology and patient had bronchoscopy. Culture sent -antibiotic and antiviral as below -sedation holiday was performed and patient placed on 5/8 PSV but patient became tachypneic with respiratory rate in 30s and failed his trial. -12/18 chest x-ray reviewed and appears worse. For further fluids - 12/18 for weaning trial as chest x-ray appears worsened patient has increased oxygen requirement -12/19 sedation holiday was performed patient not a candidate for weaning trial due to tachypnea tachycardia on loading sedation IV Lasix 12/20 chest x-ray pending, sedation holiday ordered. Patient was placed on PSV 5/8 she tolerated for only little bit of time and then became tachypneic with respiratory rate up to 40s. Patient was placed back on CMV and restarted on low-dose sedatives 12/21 sedation holiday was performed will attempt PSV weaning trial again. Lasix IV x1 today 12/22 Lasix IV give 5/8 PSV SBT done for more than 1 hour. RSBI, ABGI and Vitals acceptable. Patient is quite weak but does have a decent cough reflex. Pt awake and fo llowing commands. Will extubate and monitor. NPO for now. Bipap PRN at night. If he gets reintubate he will need tracheostomy -12/15: Repeat CT chest: IMPRESSION: Endotracheal tube, left IJ central venous line, NG tube, all in good position. Pulmonary opacities likely representing worsening atypical/viral infection. Small cavitary lesions noted in the right upper lobe. A component of aspiration could be considered given the presence of airway secretions/debris. Trace bilateral pleural effusions. Ascending aortic ectasia (2) Multifocal pneumonia: Code(s): J18.9 - Pneumonia, unspecified organism Status: Acute Assessment and Plan: 12/10: CT chest PE protocol was negative for PE, but showed bilateral multifocal pneumonia -chest x-ray also showed bilateral multifocal pneumonia -patient tested positive for influenza A 12/10: Blood cultures negative x2 12/12: Sputum cultures are negative 12/12: Nasal MRSA not detected Completed course meropenem Completed doxycycline, Discontinue vancomycin (12/19) Completed course off Tamiflu (3) COPD with emphysema: Code(s): J43.9 - Emphysema, unspecified Status: Acute Assessment and Plan: History of COPD/emphysema See above (4) SVT (supraventricular tachycardia): Code(s): I47.10 - Supraventricular tachycardia, unspecified Status: Acute Assessment and Plan: Patient went into SVT on admission, appreciate cardiology evaluation and recommendation likely related to respiratory distress from pneumonia, influenza, alcohol withdrawal. -patient was started on metoprolol per tube by cardiology (12/13) -currently in sinus rhythm, rate controlled, patient does have intermittent SVTs which is short-lived Echo Summary 1. Complete two-dimensional, color flow and Doppler transthoracic echocardiogram is performed. 2. Technically difficult study with limited views as patient is supine, confused, and restrained with mittens. 3. Overall does appear to have normal biventricular size and systolic function. 4. There does not appear to be any significant valvular disease. (5) Alcohol withdrawal: Code(s): F10.939 - Alcohol use, unspecified with withdrawal, unspecified Status: Acute Assessment and Plan: Patient does have a history of significant alcohol use -in the IMU he had elevated CIWA score and received multiple doses of Ativan -12/12: when I evaluated the patient he was confused, tremulous, and was in alcohol withdrawal -continue thiamine and folic acid Currently on Precedex infusion (6) Electrolyte abnormality: Code(s): E87.8 - Other disorders of electrolyte and fluid balance, not elsewhere classified Status: Acute Assessment and Plan: Potassium replacement ordered (7) MICHELLE (acute kidney injury): Code(s): N17.9 - Acute kidney failure, unspecified Status: Acute Assessment and Plan: 12/17 Increase in creatinine as compared to yesterday. Patient was given IV albumin and IV fluids Discontinued vancomycin Monitor urine output electrolytes and creat IV Lasix (8) Ileus: Code(s): K56.7 - Ileus, unspecified Status: Acute Assessment and Plan: Decreased bowel sounds and slight abdominal distension on exam KUB does showed normal bowel gas pattern at this time Patient is tolerating tube feeding and had bowel movements. Will continue tube feed Continue MiraLax, add Dulcolax suppository Continue Reglan Plan DVT prophylaxis: Lovenox Stress ulcer prophylaxis: Protonix Nutrition: Tolerating tube feeds which will be continued Code Status: Full code Critical Care Time Spent: 35 minutes Due to a high probability of clinically significant, life threatening deterioration, the patient required my highest level of preparedness to intervene emergently and I personally spent this critical care time directly and personally managing the patient. This critical care time included obtaining a history; examining the patient; pulse oximetry; ordering and review of studies; arranging urgent treatment with development of a management plan; evaluation of patient's response to treatment; frequent reassessment; and discussions with other providers. It was exclusive of separately billable procedures and treating other patients and teaching time. Please see Assessment and Plan section and the rest of the note for further information on patient assessment and treatment This dictation may have been done utilizing a voice recognition system. Attempts have been made to correct errors. However, there may be uncorrected grammatical, spelling, and recognitions errors present. Subjective Date/time seen: 12/22/24 Overnight events reviewed. Afebrile Continues to be on mechanical ventilation Good urine output in response to Lasix Continues to be sedated with propofol and pressor On Vitals acceptable Interval history: Reason for consult: Acute respiratory failure, pneumonia, influenza a, alcohol withdrawal, supraventricular tachycardia Review of Systems Review of Systems: ROS unobtainable: Yes unobtainable due to endotracheal tube, unobtainable due to medical condition and unobtainable due to mental status Exam Narrative: General: Intubated and sedated, in no acute distress HEENT:? Pupils equal and reactive, sclera is clear Neck:? Supple Respiratory:? Coarse breath sounds bilaterally, rales on upper lobes bilaterally, decreased air entry at bases, no wheezing Cardiac:? S1-S2 is normal, regular rate and rhythm Abdomen:? Soft, nontender, mildly distended, absent bowel sound Extremities:? No edema, palpable pedal pulses Neuro:? Intubated and sedated, on lowering sedation patient moved all 4 extremity b and followed commands. W does appear weak but has a decent cough reflex. Skin:? Warm and dry, bruising noted on bilateral upper and lower extremity Psych:? Unable to assess at this time Objective Data Vital Signs Vital Signs: Vital Signs - 24 hr 12/21/24 11:31 12/21/24 11:31 12/21/24 11:40 Temperature Pulse Rate 85 85 Respiratory Rate 30 H 30 H Blood Pressure Pulse Oximetry Oxygen Delivery Mechanical Ventilation Oxygen Flow Rate Fraction of Inspired Oxygen 30 12/21/24 12:00 12/21/24 12:00 12/21/24 12:00 Temperature 37.9 C H Pulse Rate 85 Respiratory Rate 24 H Blood Pressure 164/97 H Pulse Oximetry 94 93 Oxygen Delivery Mechanical Ventilation Oxygen Flow Rate Fraction of Inspired Oxygen 30 12/21/24 12:00 12/21/24 12:00 12/21/24 12:00 Temperature Pulse Rate 84 78 87 Respiratory Rate 23 H 23 H Blood Pressure Pulse Oximetry Oxygen Delivery Oxygen Flow Rate Fraction of Inspired Oxygen 12/21/24 12:00 12/21/24 13:40 12/21/24 13:40 Temperature Pulse Rate 87 82 82 Respiratory Rate 23 H 28 H Blood Pressure Pulse Oximetry 96 Oxygen Delivery Mechanical Ventilation Oxygen Flow Rate Fraction of Inspired Oxygen 30 12/21/24 13:53 12/21/24 14:00 12/21/24 14:00 Temperature Pulse Rate 77 85 85 Respiratory Rate 26 H 25 H Blood Pressure 161/101 H Pulse Oximetry 95 Oxygen Delivery Oxygen Flow Rate Fraction of Inspired Oxygen 12/21/24 14:00 12/21/24 14:00 12/21/24 14:00 Temperature Pulse Rate 83 83 83 Respiratory Rate 24 H 24 H 24 H Blood Pressure Pulse Oximetry Oxygen Delivery Oxygen Flow Rate Fraction of Inspired Oxygen 12/21/24 14:55 12/21/24 15:00 12/21/24 15:09 Temperature Pulse Rate 85 83 Respiratory Rate 27 H 29 H Blood Pressure Pulse Oximetry Oxygen Delivery Mechanical Ventilation Oxygen Flow Rate Fraction of Inspired Oxygen 30 12/21/24 15:09 12/21/24 16:00 12/21/24 16:00 Temperature 37.9 C H Pulse Rate 83 104 H 90 Respiratory Rate 29 H 34 H 33 H Blood Pressure 178/99 H Pulse Oximetry 92 Oxygen Delivery Oxygen Flow Rate Fraction of Inspired Oxygen 12/21/24 16:00 12/21/24 16:00 12/21/24 16:00 Temperature Pulse Rate 90 100 Respiratory Rate 33 H Blood Pressure Pulse Oximetry 92 Oxygen Delivery Mechanical Ventilation Oxygen Flow Rate Fraction of Inspired Oxygen 12/21/24 16:00 12/21/24 17:04 12/21/24 18:00 Temperature Pulse Rate 97 94 Respiratory Rate Blood Pressure Pulse Oximetry 92 Oxygen Delivery Mechanical Ventilation Oxygen Flow Rate Fraction of Inspired Oxygen 30 30 12/21/24 18:00 12/21/24 18:00 12/21/24 18:00 Temperature Pulse Rate 97 94 94 Respiratory Rate 30 H 28 H 28 H Blood Pressure 146/86 H Pulse Oximetry 94 Oxygen Delivery Oxygen Flow Rate Fraction of Inspired Oxygen 12/21/24 18:49 12/21/24 18:49 12/21/24 20:00 Temperature Pulse Rate 93 93 81 Respiratory Rate 29 H 29 H 28 H Blood Pressure Pulse Oximetry Oxygen Delivery Oxygen Flow Rate Fraction of Inspired Oxygen 12/21/24 20:00 12/21/24 20:00 12/21/24 20:00 Temperature Pulse Rate 81 80 Respiratory Rate 28 H 27 H Blood Pressure Pulse Oximetry 95 Oxygen Delivery Mechanical Ventilation Oxygen Flow Rate Fraction of Inspired Oxygen 30 30 12/21/24 20:00 12/21/24 20:06 12/21/24 20:06 Temperature Pulse Rate 75 82 82 Respiratory Rate 23 H Blood Pressure Pulse Oximetry 97 Oxygen Delivery Mechanical Ventilation Oxygen Flow Rate Fraction of Inspired Oxygen 30 12/21/24 20:08 12/21/24 20:28 12/21/24 21:22 Temperature 37.1 C Pulse Rate 91 74 102 H Respiratory Rate 22 H 22 H Blood Pressure 134/84 Pulse Oximetry 100 Oxygen Delivery Oxygen Flow Rate Fraction of Inspired Oxygen 12/21/24 21:23 12/21/24 21:23 12/21/24 22:00 Temperature Pulse Rate 69 69 68 Respiratory Rate 22 H 22 H 21 H Blood Pressure Pulse Oximetry Oxygen Delivery Oxygen Flow Rate Fraction of Inspired Oxygen 12/21/24 22:00 12/21/24 22:00 12/21/24 22:14 Temperature 37.1 C Pulse Rate 68 66 69 Respiratory Rate 21 H 21 H Blood Pressure 106/67 Pulse Oximetry 96 Oxygen Delivery Oxygen Flow Rate Fraction of Inspired Oxygen 12/21/24 22:26 12/21/24 22:26 12/21/24 23:01 Temperature Pulse Rate 67 67 71 Respiratory Rate 20 20 Blood Pressure Pulse Oximetry 95 Oxygen Delivery Mechanical Ventilation Oxygen Flow Rate Fraction of Inspired Oxygen 30 12/22/24 00:00 12/22/24 00:00 12/22/24 00:00 Temperature Pulse Rate 71 71 72 Respiratory Rate 22 H 22 H 24 H Blood Pressure Pulse Oximetry 95 Oxygen Delivery Mechanical Ventilation Oxygen Flow Rate Fraction of Inspired Oxygen 30 12/22/24 00:00 12/22/24 00:00 12/22/24 00:20 Temperature Pulse Rate 71 71 Respiratory Rate 33 H Blood Pressure 112/83 Pulse Oximetry 95 Oxygen Delivery Oxygen Flow Rate Fraction of Inspired Oxygen 30 12/22/24 02:00 12/22/24 02:00 12/22/24 02:00 Temperature Pulse Rate 67 67 70 Respiratory Rate 25 H 25 H Blood Pressure 136/98 H Pulse Oximetry 93 Oxygen Delivery Oxygen Flow Rate Fraction of Inspired Oxygen 12/22/24 02:07 12/22/24 02:07 12/22/24 02:08 Temperature Pulse Rate 70 70 70 Respiratory Rate 26 H 26 H Blood Pressure Pulse Oximetry 93 Oxygen Delivery Mechanical Ventilation Oxygen Flow Rate Fraction of Inspired Oxygen 30 12/22/24 02:08 12/22/24 02:23 12/22/24 03:33 Temperature Pulse Rate 70 65 60 Respiratory Rate 26 H 21 H 24 H Blood Pressure Pulse Oximetry Oxygen Delivery Oxygen Flow Rate Fraction of Inspired Oxygen 12/22/24 03:33 12/22/24 04:00 12/22/24 04:00 Temperature Pulse Rate 60 63 Respiratory Rate 24 H 20 Blood Pressure Pulse Oximetry 95 Oxygen Delivery Mechanical Ventilation Oxygen Flow Rate Fraction of Inspired Oxygen 30 30 12/22/24 04:00 12/22/24 04:00 12/22/24 04:00 Temperature Pulse Rate 64 64 64 Respiratory Rate 20 20 Blood Pressure Pulse Oximetry Oxygen Delivery Oxygen Flow Rate Fraction of Inspired Oxygen 12/22/24 04:13 12/22/24 04:55 12/22/24 05:33 Temperature 37.2 C Pulse Rate 66 64 69 Respiratory Rate 21 H 21 H Blood Pressure 112/68 Pulse Oximetry 95 95 Oxygen Delivery Mechanical Ventilation Oxygen Flow Rate Fraction of Inspired Oxygen 30 12/22/24 05:33 12/22/24 05:58 12/22/24 05:59 Temperature Pulse Rate 69 68 72 Respiratory Rate 21 H 23 H 21 H Blood Pressure Pulse Oximetry Oxygen Delivery Oxygen Flow Rate Fraction of Inspired Oxygen 12/22/24 06:00 12/22/24 06:00 12/22/24 08:00 Temperature Pulse Rate 69 68 71 Respiratory Rate 21 H 25 H Blood Pressure 128/74 Pulse Oximetry 94 Oxygen Delivery Oxygen Flow Rate Fraction of Inspired Oxygen 12/22/24 08:00 12/22/24 08:00 12/22/24 08:00 Temperature Pulse Rate 75 Respiratory Rate 25 H Blood Pressure Pulse Oximetry 92 Oxygen Delivery Mechanical Ventilation Oxygen Flow Rate Fraction of Inspired Oxygen 30 30 12/22/24 08:00 12/22/24 08:00 12/22/24 08:14 Temperature 36.9 C Pulse Rate 68 68 70 Respiratory Rate 20 Blood Pressure 134/111 H Pulse Oximetry 95 Oxygen Delivery Oxygen Flow Rate Fraction of Inspired Oxygen 12/22/24 08:17 12/22/24 08:27 12/22/24 08:30 Temperature Pulse Rate 71 74 73 Respiratory Rate 21 H 19 Blood Pressure Pulse Oximetry 94 Oxygen Delivery Mechanical Ventilation Oxygen Flow Rate Fraction of Inspired Oxygen 30 12/22/24 09:14 12/22/24 09:22 12/22/24 09:27 Temperature Pulse Rate 66 66 Respiratory Rate 20 20 Blood Pressure Pulse Oximetry Oxygen Delivery Oxygen Flow Rate Fraction of Inspired Oxygen 30 12/22/24 10:00 12/22/24 10:00 12/22/24 10:00 Temperature Pulse Rate 75 75 75 Respiratory Rate 29 H 29 H Blood Pressure 167/95 H Pulse Oximetry 95 Oxygen Delivery Oxygen Flow Rate Fraction of Inspired Oxygen 12/22/24 10:00 12/22/24 10:15 12/22/24 10:30 Temperature Pulse Rate 75 75 77 Respiratory Rate 29 H 29 H 20 Blood Pressure Pulse Oximetry 94 Oxygen Delivery Nasal Cannula Oxygen Flow Rate 3 Fraction of Inspired Oxygen 12/22/24 11:04 Temperature Pulse Rate 69 Respiratory Rate 21 H Blood Pressure Pulse Oximetry Oxygen Delivery Oxygen Flow Rate Fraction of Inspired Oxygen Intake/Output Intake/Output: Intake & Output 12/19/24 12/20/24 12/21/24 12/22/24 23:59 23:59 23:59 23:59 Intake Total 3070.1 3277.6 2848.1 450.7 Output Total 3375 1660 3600 1026 Balance -304.9 1617.6 -751.9 -575.3 Meds/Results Medications: Active Medications Generic Name Dose Route Start Last Admin Trade Name Freq PRN Reason Stop Dose Admin Acetaminophen 650 mg 12/11/24 07:58 12/18/24 16:00 Acetaminophen 325 Mg Tablet PO 650 mg Q4H PRN Administration Mild Pain (1-3) or Fever Albuterol 2 puff 12/11/24 00:26 Albuterol Sulfate (*Sp) Aerosol 1 Puff INHALATION QIDRT PRN shortness of breath or wheezing Albuterol/Ipratropium 3 ml 12/11/24 02:00 12/22/24 08:16 Ipratropium 0.5 Mg/Albuterol Sulfate 2.5 Mg Ampul.Neb 3 Ml INHALATION 3 ml Q6HRT SANTIAGO Administration Alteplase, Recombinant 2 mg 12/16/24 09:59 12/16/24 16:31 Alteplase 2 Mg Vial (Cathflo) IV PUSH 2 mg ONCE PRN Administration Line Occlusion Bisacodyl 10 mg 12/19/24 08:26 12/19/24 09:19 Bisacodyl 10 Mg Suppository RECTAL 10 mg QAM PRN Administration Constipation Dextrose 12.5 gm 12/11/24 11:48 Dextrose 50% 25 Gm/50 Ml Syringe IV PUSH PRN PRN Hypoglycemia Protocol Enoxaparin Sodium 40 mg 12/13/24 09:00 12/22/24 08:15 Enoxaparin 40 Mg/0.4 Ml Syringe SUB-Q 40 mg DAILY SANTIAGO Administration Folic Acid 1 mg 12/11/24 09:00 12/22/24 08:14 Folic Acid 1 Mg/0.2 Ml Inj IV PUSH 1 mg QAM SANTIAGO Administration Glucagon 1 mg 12/11/24 11:48 Glucagon For Inj 1 Mg Vial IM PRN PRN Hypoglycemia Protocol Glucose 15 gm 12/11/24 11:48 Glucose Oral Gel 15 Gm Of Glucse In 37.5 Gm Tube PO PRN PRN Hypoglycemia Protocol Hydralazine HCl 20 mg 12/21/24 13:50 12/21/24 15:11 Hydralazine Hcl 20 Mg/Ml Vial IV PUSH 20 mg Q4H PRN Administration SBP more than 160 Dextrose 1,000 mls @ 100 mls/hr 12/11/24 11:48 Dextrose 5% 1,000 Ml IVPB PRN PRN Hypoglycemia Protocol Dexmedetomidine HCl 400 mcg in 100 mls @ 15.75 mls/hr 12/17/24 12:45 12/22/24 11:04 Precedex 400 Mcg/100 Ml IV CONT 0.9 mcg/kg/hr .Q6H21M SANTIAGO 15.75 mls/hr Titration Protocol 0.9 MCG/KG/HR Levalbuterol HCl 0.63 mg 12/11/24 09:00 Levalbuterol Neb 1.25 Mg/3 Ml INHALATION Q6HRT PRN Dryness Metoclopramide HCl 10 mg 12/19/24 08:25 12/22/24 08:14 Metoclopramide Hcl 10 Mg/10 Ml Soln Udc FEED TUBE 10 mg Q6H SANTIAGO Administration Metoprolol Tartrate 5 mg 12/12/24 01:00 12/12/24 08:41 Metoprolol Tartrate Inj 5 Mg/5 Ml Vial IV PUSH 5 mg Q4H SANTIAGO Administration Metoprolol Tartrate 25 mg 12/13/24 21:00 12/22/24 08:14 Metoprolol Tartrate 25 Mg Tablet PO 25 mg Q12HR SANTIAGO Administration Multi-Ingred Cream/Lotion/Oil/Oint 1 applic 12/12/24 21:00 12/22/24 08:15 Mineral Oil/White Petrolatum Ointment EACH EYE 1 applic Q12HR SANTIAGO Administration Ondansetron HCl 4 mg 12/11/24 04:19 Ondansetron Inj 4 Mg/2 Ml Vial IV PUSH Q6H PRN Nausea And Vomiting Pantoprazole Sodium 40 mg 12/13/24 09:00 12/22/24 08:14 Pantoprazole Sodium Iv 40 Mg Vial IV PUSH 40 mg QAM SANTIAGO Administration Polyethylene Glycol 17 gm 12/16/24 10:22 12/22/24 08:14 Polyethylene Glycol 3350 17 Gm Powd.Pack PO 17 gm QAM SANTIAGO Administration Senna/Docusate Sodium 1 tab 12/16/24 21:00 12/21/24 20:08 Senna/Docusate Sodium Tablet PO 1 tab HS SANTIAGO Administration Sodium Chloride 20 ml 12/12/24 11:00 Central Line Flush IV PUSH PRN PRN after blood draws Sodium Chloride 10 ml 12/12/24 11:00 Central Line Flush IV PUSH PRN PRN with TPN bag changes Sodium Chloride 10 ml 12/13/24 14:00 12/22/24 05:34 Central Line Flush IV PUSH 10 ml Q8HR SANTIAGO Administration Sodium Chloride 20 ml 12/13/24 12:24 Central Line Flush IV PUSH PRN PRN after blood draws Thiamine HCl 100 mg 12/11/24 09:00 12/22/24 08:14 Thiamine Hcl 200 Mg/2 Ml Vial IV PUSH 100 mg QAM SANTIAGO Administration Radiology Results: ITS Impressions Chest CTA 12/10/24 19:15 IMPRESSION: No pulmonary embolism. No aortic dissection. Multifocal pneumonia. Chest CT 12/15/24 16:37 IMPRESSION: Endotracheal tube, left IJ central venous line, NG tube, all in good position. Pulmonary opacities likely representing worsening atypical/viral infection. Small cavitary lesions noted in the right upper lobe. A component of aspiration could be considered given the presence of airway secretions/debris. Trace bilateral pleural effusions. Ascending aortic ectasia. Abdomen X-Ray 12/18/24 14:59 IMPRESSION: 1. Normal bowel gas pattern. Chest X-Ray 12/22/24 07:13 Impression: Left basilar and right apical consolidation. Correlate for multifocal pneumonia. Support tubes, as above. Labs Labs: Laboratory Results - last 24 hr 12/21/24 12/21/24 12/21/24 11:43 17:42 23:48 WBC RBC Hgb Hct MCV MCH MCHC RDW Plt Count MPV Puncture Site ABG pH ABG pCO2 ABG pO2 ABG PO2/FiO2 Ratio ABG HCO3 ABG O2 Saturation ABG O2 Content ABG Base Excess A-a Gradient Oxyhemoglobin Carboxyhemoglobin Methemoglobin Reduced Hemoglobin Total Hemoglobin O2 Delivery Device O2 Liters/Min Minute Volume Vent Rate Vent Mode FiO2 Tidal Volume PEEP Peak Inspir Pressure Pressure Support Sodium Potassium Chloride Carbon Dioxide Anion Gap BUN Creatinine Estim Creat Clear Calc Estimated GFR Glucose POC Capillary Glucose 119 H 120 H 127 H Calcium Magnesium Total Bilirubin AST ALT Alkaline Phosphatase Total Protein Albumin Triglycerides 12/22/24 12/22/24 12/22/24 04:46 05:37 10:00 WBC 6.3 RBC 2.84 L Hgb 9.5 L Hct 29.0 L MCV 102.1 H MCH 33.5 MCHC 32.8 RDW 13.3 Plt Count 274 MPV 10.0 Puncture Site Right brachial Right radial ABG pH 7.439 7.469 H ABG pCO2 45.4 H 41.7 ABG pO2 69.1 L 70.1 L ABG PO2/FiO2 Ratio 2.30 2.34 ABG HCO3 30.1 H 29.6 H ABG O2 Saturation 94.3 L 95.0 ABG O2 Content 13.0 L 16.2 ABG Base Excess 5.3 5.4 A-a Gradient 91.5 94.8 Oxyhemoglobin 93.1 93.2 Carboxyhemoglobin 0.6 Methemoglobin 0.0 Reduced Hemoglobin 6.3 H Total Hemoglobin 9.9 L 12.3 O2 Delivery Device Ventilator Ventilator O2 Liters/Min Not Reportable Not Reportable Minute Volume Not Reportable Not Reportable Vent Rate 20 Not Reportable Vent Mode Cmv Spontaneous FiO2 30 30 Tidal Volume 480 Not Reportable PEEP 8 8 Peak Inspir Pressure Not Reportable Not Reportable Pressure Support Not Reportable 5 Sodium 143 Potassium 3.8 Chloride 107 Carbon Dioxide 31 H Anion Gap 5 BUN 48 H Creatinine 1.32 H Estim Creat Clear Calc 55 Estimated GFR 55 L Glucose 132 H POC Capillary Glucose Calcium 8.3 L Magnesium 2.3 Total Bilirubin 0.4 AST 34 ALT 28 Alkaline Phosphatase 87 Total Protein 6.0 L Albumin 2.9 L Triglycerides 197 H Quality VTE Prophylaxis VTE prophylaxis: pharmacologic ordered
[2024-12-22 11:45] LABS: Glucose Point of Care 113 mg/dl (65-105)
[2024-12-22] MEDS: dexmedeTOMIDine 400 MCG/100 ML 400 MCG/100 ML BAG 10.5 MCG IV CONT (15:46)
[2024-12-22] MEDS: hydrALAZINE HCL 20 MG/ML VIAL IV PUSH ×2 (17:23→21:29)
[2024-12-22 17:29] LABS: Glucose Point of Care 105 mg/dl (65-105)
[2024-12-23] VITALS (32 sets, daily range): BP systolic 145–178; BP diastolic 78–106; PULSE 82–152; RESP 17–27; TEMP 36.8–37.7; O2SAT 95–98
[2024-12-23 00:51] LABS: Glucose Point of Care 103 mg/dl (65-105)
[2024-12-23] MEDS: hydrALAZINE HCL 20 MG/ML VIAL IV PUSH ×2 (01:40→05:38)
--- NOTE | 2024-12-23 01:53 | PC.NURSE ---
Discussed increasing blood pressures as precedex is weaned and repeated use of PRN hydralazine with Tatiana PATTON. Patient unable to take PO medications at this time. Order received for 10mg labetalol IVP now.
[2024-12-23] MEDS: IPRATROPIUM 0.5 MG/ALBUTEROL SULFATE 2.5 MG AMPUL.NEB 3 ML INHALATION ×2 (02:05→08:11)
[2024-12-23] MEDS: LABETALOL HCL INJ 100 MG/20 ML VIAL 10 MG IV PUSH (02:06)
--- NOTE | 2024-12-23 05:12 | PC.NURSE ---
0400 12/23 discussed continued elevated blood pressure with Tatiana PATTON. Tatiana states she will enter a secondary PRN blood pressure medication.
[2024-12-23 05:25] LABS: Base Excess ABG 3.8 mEq/l (+/-2.0); Carboxyhemoglobin 0.6 % THb (0-2.0); Fractional Inspired Oxygen 30 %; HCO3 ABG 26.2 mEq/l (22.0-26.0); Methemoglobin ABG 0.3 %THb (0-1.5); Oxygen Content ABG 18.3 %vol (16.0-22.0); Oxygen Saturation ABG 96.7 % (95.0-100.0); Oxyhemoglobin 94.7 % THb (90.0-100.0); PCO2 ABG 32.7 mmHg (35.0-45.0); PO2 ABG 77.5 mmHg (80.0-100.0); PO2 FiO2 Ratio Arterial Blood 2.58 %; Reduced Hemoglobin 4.4 %THb (0-5.0); Total Hemoglobin 13.7 g/dL (12.0-18.0)
[2024-12-23 05:26] LABS: Device NON-INVASIVE VENT; Modified Allen's Test Pass; Non-Invasive Expiratory Pressure 8 CMH2O; Non-Invasive Inspiratory Pressure 14 CMH2O; Non-Invasive Vent Rate 12 /MIN; Site Drawn RIGHT RADIAL; pH ABG 7.522 (7.350-7.450)
[2024-12-23] MEDS: CENTRAL LINE FLUSH 10 ML IV PUSH ×3 (05:38→21:04)
[2024-12-23] MEDS: CENTRAL LINE FLUSH 20 ML IV PUSH (05:38)
[2024-12-23 05:48] LABS: Hematocrit 30.7 % (42.0-52.0); Hemoglobin 10.1 g/dL (14.0-18.0); Mean Corpuscular HGB Conc 32.9 g/dl (32-36); Mean Corpuscular Hemoglobin 33.2 pg (26-34); Mean Platelet Volume 9.5 fl (7.4-10.4); Platelet Count Result 302 k/mm3 (150-375); Red Blood Count 3.04 M/mm3 (4.6-6.20); Red Cell Distribution Width 13.2 % (11.5-14.5); White Blood Count 6.6 K/mm3 (4.5-10.0)
[2024-12-23 05:59] LABS: Alanine Aminotransferase 35 U/L (6-50); Albumin Level 3.2 g/dL (3.5-5.1); Alkaline Phosphatase 97 U/L (38-126); Anion Gap 7 mmol/L (4-12); Aspartate Amino Transferase 41 U/L (17-59); Bilirubin,Total 0.7 mg/dL (0.2-1.3); Blood Urea Nitrogen 45 mg/dL (9-20); Calcium 8.8 mg/dL (8.4-10.2); Carbon Dioxide 31 mmol/L (22-30); Chloride 108 mmol/L (98-107); Estimated CRCL calculation 61 ml/min; Estimated Glomerular Filt Rate > 60; Glucose 117 mg/dL (65-110); Magnesium 2.1 mg/dL (1.6-2.3); Potassium 3.8 mmol/L (3.4-5.0); Sodium 146 mmol/L (137-145)
--- NOTE | 2024-12-23 07:21 | ECG_ITS ---
Test Date: 2024-12-23 07:26:53 Measurements Intervals [place] Rate: 149 P: -83 MT: 100 QRS: -56 QRSD: 69 T: -15 QT: 254 QTc: 400 Interpretive Statements JUNCTIONAL TACHYCARDIA, POSSIBLE ATRIAL FLUTTER MARKED LEFT AXIS DEVIATION [QRS AXIS < -30] SEPTAL MYOCARDIAL INFARCTION [40+ ms Q WAVE IN V1/V2], PROBABLY OLD Compared to ECG 12/10/2024 20:44:30 Left-axis deviation now present Myocardial infarct finding still present Electronically Signed On 12-23-2024 21:19:44 [facility] by Benito Wynn M.D.
[2024-12-23] MEDS: METOPROLOL TARTRATE INJ 5 MG/5 ML VIAL IV PUSH ×5 (07:31→21:04)
[2024-12-23] MEDS: THIAMINE HCL 200 MG/2 ML VIAL 100 MG IV PUSH (08:43)
[2024-12-23] MEDS: ENOXAPARIN 40 MG/0.4 ML SYRINGE SUB-Q (08:44)
[2024-12-23] MEDS: FOLIC ACID 1 MG/0.2 ML INJ IV PUSH (08:44)
[2024-12-23] MEDS: PANTOPRAZOLE SODIUM IV 40 MG VIAL IV PUSH (08:44)
--- NOTE | 2024-12-23 09:24 | P.PNINT_ITS ---
Progress Note: A&P Assessment and Plan (1) Acute respiratory failure: Code(s): J96.00 - Acute respiratory failure, unspecified whether with hypoxia or hypercapnia Status: Acute Assessment and Plan: 12/12: Acute respiratory failure/impending respiratory failure likely related to altered mentation secondary to alcohol withdrawal, respiratory distress due to pneumonia and influenza A, COPD/emphysema -12/12: Intubated in the ICU -currently on CMV mode of ventilation, peep of 8 and 30% FiO2, saturating 90 91% -continue bronchodilators given history of COPD -Sedated with propofol and fentanyl infusion, maintain RASS of 0 to -2, daily SBT and SAT -12/15: chest x-rays have not been improving so opted to obtain chest CT which is as under -12/16: Consulted pulmonology and patient had bronchoscopy. Culture sent -antibiotic and antiviral as below -sedation holiday was performed and patient placed on 5/8 PSV but patient became tachypneic with respiratory rate in 30s and failed his trial. -12/18 chest x-ray reviewed and appears worse. For further fluids - 12/18 for weaning trial as chest x-ray appears worsened patient has increased oxygen requirement -12/19 sedation holiday was performed patient not a candidate for weaning trial due to tachypnea tachycardia on loading sedation IV Lasix 12/20 chest x-ray pending, sedation holiday ordered. Patient was placed on PSV 5/8 she tolerated for only little bit of time and then became tachypneic with respiratory rate up to 40s. Patient was placed back on CMV and restarted on low-dose sedatives 12/21 sedation holiday was performed will attempt PSV weaning trial again. Lasix IV x1 today 12/22 Lasix IV give 5/8 PSV SBT done for more than 1 hour. RSBI, ABGI and Vitals acceptable. Patient is quite weak but does have a decent cough reflex. Pt awake and fo llowing commands. Will extubate and monitor. NPO for now. Bipap PRN at night. If he gets reintubate he will need tracheostomy 12/23 doing well and on nasal cannula. Continue supplemental oxygen. Add incentive spirometry. PT OT come -12/15: Repeat CT chest: IMPRESSION: Endotracheal tube, left IJ central venous line, NG tube, all in good position. Pulmonary opacities likely representing worsening atypical/viral infection. Small cavitary lesions noted in the right upper lobe. A component of aspiration could be considered given the presence of airway secretions/debris. Trace bilateral pleural effusions. Ascending aortic ectasia (2) Multifocal pneumonia: Code(s): J18.9 - Pneumonia, unspecified organism Status: Acute Assessment and Plan: 12/10: CT chest PE protocol was negative for PE, but showed bilateral multifocal pneumonia -chest x-ray also showed bilateral multifocal pneumonia -patient tested positive for influenza A 12/10: Blood cultures negative x2 12/12: Sputum cultures are negative 12/12: Nasal MRSA not detected Completed course meropenem Completed doxycycline, Discontinue vancomycin (12/19) Completed course off Tamiflu (3) COPD with emphysema: Code(s): J43.9 - Emphysema, unspecified Status: Acute Assessment and Plan: History of COPD/emphysema See above (4) SVT (supraventricular tachycardia): Code(s): I47.10 - Supraventricular tachycardia, unspecified Status: Acute Assessment and Plan: Patient went into SVT on admission, appreciate cardiology evaluation and recommendation likely related to respiratory distress from pneumonia, influenza, alcohol withdrawal. -patient was started on metoprolol per tube by cardiology (12/13) -currently in sinus rhythm, rate controlled, patient does have intermittent SVTs which is short-lived -continue beta-shannan which will be changed to IV until patient starts taking p.o. Echo Summary 1. Complete two-dimensional, color flow and Doppler transthoracic echocardiogram is performed. 2. Technically difficult study with limited views as patient is supine, confused, and restrained with mittens. 3. Overall does appear to have normal biventricular size and systolic function. 4. There does not appear to be any significant valvular disease. (5) Alcohol withdrawal: Code(s): F10.939 - Alcohol use, unspecified with withdrawal, unspecified Status: Acute Assessment and Plan: Patient does have a history of significant alcohol use -in the IMU he had elevated CIWA score and received multiple doses of Ativan -12/12: when I evaluated the patient he was confused, tremulous, and was in alcohol withdrawal -continue thiamine and folic acid Precedex weaned (6) Electrolyte abnormality: Code(s): E87.8 - Other disorders of electrolyte and fluid balance, not elsewhere classified Status: Acute Assessment and Plan: Potassium replacement ordered (7) MICHELLE (acute kidney injury): Code(s): N17.9 - Acute kidney failure, unspecified Status: Acute Assessment and Plan: 12/17 Increase in creatinine as compared to yesterday. Patient was given IV albumin and IV fluids Discontinued vancomycin Monitor urine output electrolytes and creat IV Lasix (8) Ileus: Code(s): K56.7 - Ileus, unspecified Status: Acute Assessment and Plan: Decreased bowel sounds and slight abdominal distension on exam KUB does showed normal bowel gas pattern at this time Patient was tolerating tube feeding and had bowel movements. Now off of tube feed post extubate Continue MiraLax, add Dulcolax suppository Consult Plan DVT prophylaxis: Lovenox Stress ulcer prophylaxis: Protonix Nutrition: Tolerating tube feeds which will be continued Code Status: Full code Speech therapy for bedside swallow eval swallow evaluation, incentive spirometry, PT OT Subjective Date/time seen: 12/23/24 Overnight events reviewed. Afebrile Patient was extubated yesterday after a successful weaning trial Good urine output response placed Had sinus tachycardia earlier this more Precedex weaned off Awake but confused. He states he feels short of breath intermittently and has cough which is dry. Denies any other complaint. All other systems were reviewed and were negative Other Vitals acceptable Interval history: Reason for consult: Acute respiratory failure, pneumonia, influenza a, alcohol withdrawal, supraventricular tachycardia Review of Systems Review of Systems: All systems reviewed & are unremarkable except as noted in HPI and below (HPI) Exam Narrative: General: I alert awake and in no acute distress HEENT:? Pupils equal and reactive, sclera is clear Neck:? Supple Respiratory:? Clear breath sounds bilaterally, decreased at bases Cardiac:? S1-S2 is normal, regular rate and rhythm Abdomen:? Soft, nontender, mildly distended, absent bowel sound Extremities:? No edema, palpable pedal pulses Neuro:? AO x2, moves all extremities and follows command Skin:? Warm and dry, bruising noted on bilateral upper and lower extremity Psych:? Normal speech and affect Objective Data Vital Signs Vital Signs: Vital Signs - 24 hr 12/22/24 09:27 12/22/24 10:12/22/24 10:00 Temperature Pulse Rate 66 75 75 Respiratory Rate 20 29 H Blood Pressure 167/95 H Pulse Oximetry 95 Oxygen Delivery Oxygen Flow Rate Fraction of Inspired Oxygen 12/22/24 10:00 12/22/24 10:00 12/22/24 10:15 Temperature Pulse Rate 75 75 75 Respiratory Rate 29 H 29 H 29 H Blood Pressure Pulse Oximetry Oxygen Delivery Oxygen Flow Rate Fraction of Inspired Oxygen 12/22/24 10:23 12/22/24 10:30 12/22/24 11:04 Temperature Pulse Rate 89 77 69 Respiratory Rate 22 H 20 21 H Blood Pressure Pulse Oximetry 98 94 Oxygen Delivery BiPAP Nasal Cannula Oxygen Flow Rate 3 Fraction of Inspired Oxygen 12/22/24 11:58 12/22/24 12:00 12/22/24 12:00 Temperature 37.3 C Pulse Rate 70 72 Respiratory Rate 19 Blood Pressure 150/88 H Pulse Oximetry 93 93 Oxygen Delivery Nasal Cannula Oxygen Flow Rate 2 Fraction of Inspired Oxygen 12/22/24 12:02 12/22/24 12:26 12/22/24 13:13 Temperature Pulse Rate 70 73 69 Respiratory Rate 19 20 11 L Blood Pressure Pulse Oximetry 95 Oxygen Delivery Nasal Cannula Oxygen Flow Rate 3 Fraction of Inspired Oxygen 12/22/24 14:00 12/22/24 14:00 12/22/24 14:15 Temperature Pulse Rate 73 72 73 Respiratory Rate 19 12 Blood Pressure 149/92 H Pulse Oximetry 94 Oxygen Delivery Oxygen Flow Rate Fraction of Inspired Oxygen 12/22/24 14:36 12/22/24 14:36 12/22/24 14:53 Temperature Pulse Rate 73 73 74 Respiratory Rate 20 20 20 Blood Pressure Pulse Oximetry 95 Oxygen Delivery Nasal Cannula Oxygen Flow Rate 3 Fraction of Inspired Oxygen 12/22/24 15:46 12/22/24 15:46 12/22/24 16:00 Temperature Pulse Rate 79 79 Respiratory Rate 20 20 Blood Pressure Pulse Oximetry 94 Oxygen Delivery Nasal Cannula Oxygen Flow Rate 2 Fraction of Inspired Oxygen 12/22/24 16:00 12/22/24 16:00 12/22/24 16:00 Temperature 37.0 C Pulse Rate 75 75 78 Respiratory Rate 20 20 Blood Pressure 176/95 H Pulse Oximetry 94 Oxygen Delivery Oxygen Flow Rate Fraction of Inspired Oxygen 12/22/24 17:35 12/22/24 18:00 12/22/24 18:00 Temperature Pulse Rate 93 90 Respiratory Rate 25 H Blood Pressure 151/89 H Pulse Oximetry Oxygen Delivery Oxygen Flow Rate Fraction of Inspired Oxygen 12/22/24 18:00 12/22/24 20:00 12/22/24 20:00 Temperature Pulse Rate 90 77 81 Respiratory Rate 19 26 H Blood Pressure 155/81 H Pulse Oximetry 94 93 Oxygen Delivery Nasal Cannula Oxygen Flow Rate 3 Fraction of Inspired Oxygen 12/22/24 20:00 12/22/24 20:01 12/22/24 20:15 Temperature 37.3 C Pulse Rate 93 74 88 Respiratory Rate 26 H 20 Blood Pressure 180/97 H Pulse Oximetry 92 Oxygen Delivery Oxygen Flow Rate Fraction of Inspired Oxygen 12/22/24 20:25 12/22/24 20:30 12/22/24 20:33 Temperature Pulse Rate 87 84 93 Respiratory Rate 19 26 H Blood Pressure Pulse Oximetry 95 Oxygen Delivery Nasal Cannula Oxygen Flow Rate 3 Fraction of Inspired Oxygen 12/22/24 21:25 12/22/24 22:00 12/22/24 22:00 Temperature Pulse Rate 83 92 Respiratory Rate 18 Blood Pressure 171/88 H 139/78 Pulse Oximetry 93 Oxygen Delivery Oxygen Flow Rate Fraction of Inspired Oxygen 12/22/24 22:00 12/22/24 22:11 12/23/24 00:00 Temperature 37.1 C Pulse Rate 92 86 87 Respiratory Rate 18 22 H 17 Blood Pressure 139/78 Pulse Oximetry 92 Oxygen Delivery Oxygen Flow Rate Fraction of Inspired Oxygen 12/23/24 00:00 12/23/24 00:30 12/23/24 00:45 Temperature 37.0 C Pulse Rate 90 89 82 Respiratory Rate 19 22 H Blood Pressure 168/98 H Pulse Oximetry 98 98 Oxygen Delivery BiPAP Oxygen Flow Rate Fraction of Inspired Oxygen 35 12/23/24 01:04 12/23/24 01:35 12/23/24 02:00 Temperature Pulse Rate 87 92 Respiratory Rate 19 Blood Pressure 176/106 H Pulse Oximetry Oxygen Delivery Oxygen Flow Rate Fraction of Inspired Oxygen 12/23/24 02:00 12/23/24 02:05 12/23/24 02:05 Temperature Pulse Rate 92 82 82 Respiratory Rate 22 H 26 H 24 H Blood Pressure Pulse Oximetry 97 Oxygen Delivery BiPAP Oxygen Flow Rate Fraction of Inspired Oxygen 12/23/24 02:06 12/23/24 02:15 12/23/24 02:17 Temperature 37.1 C Pulse Rate 96 82 86 Respiratory Rate 22 H 17 Blood Pressure 153/88 H Pulse Oximetry 97 Oxygen Delivery Oxygen Flow Rate Fraction of Inspired Oxygen 12/23/24 03:37 12/23/24 04:00 12/23/24 04:18 Temperature 36.9 C Pulse Rate 88 93 90 Respiratory Rate 19 20 Blood Pressure 178/96 H Pulse Oximetry 98 Oxygen Delivery Oxygen Flow Rate Fraction of Inspired Oxygen 12/23/24 04:40 12/23/24 05:00 12/23/24 05:25 Temperature Pulse Rate 90 90 88 Respiratory Rate 22 H 19 27 H Blood Pressure Pulse Oximetry 97 98 Oxygen Delivery Mechanical Ventilation BiPAP Oxygen Flow Rate Fraction of Inspired Oxygen 30 12/23/24 05:29 12/23/24 06:00 12/23/24 06:00 Temperature Pulse Rate 89 95 95 Respiratory Rate 18 Blood Pressure 145/78 H Pulse Oximetry 97 96 Oxygen Delivery Nasal Cannula Oxygen Flow Rate 2 Fraction of Inspired Oxygen 12/23/24 06:00 12/23/24 07:31 12/23/24 08:00 Temperature 36.9 C Pulse Rate 95 152 H 88 Respiratory Rate 18 20 Blood Pressure 172/91 H Pulse Oximetry 96 Oxygen Delivery Oxygen Flow Rate Fraction of Inspired Oxygen 12/23/24 08:11 12/23/24 08:11 12/23/24 08:22 Temperature Pulse Rate 86 89 Respiratory Rate 20 22 H Blood Pressure Pulse Oximetry 96 Oxygen Delivery Nasal Cannula Oxygen Flow Rate 3 Fraction of Inspired Oxygen 32 12/23/24 08:43 Temperature Pulse Rate 90 Respiratory Rate Blood Pressure Pulse Oximetry Oxygen Delivery Oxygen Flow Rate Fraction of Inspired Oxygen Intake/Output Intake/Output: Intake & Output 12/20/24 12/21/24 12/22/24 12/23/24 23:59 23:59 23:59 23:59 Intake Total 3277.6 2848.1 1067.0 41.5 Output Total 1660 3600 3126 850 Balance 1617.6 -751.9 -2059.0 -808.5 Meds/Results Medications: Active Medications Generic Name Dose Route Start Last Admin Trade Name Freq PRN Reason Stop Dose Admin Acetaminophen 650 mg 12/11/24 07:58 12/18/24 16:00 Acetaminophen 325 Mg Tablet PO 650 mg Q4H PRN Administration Mild Pain (1-3) or Fever Albuterol/Ipratropium 3 ml 12/23/24 07:50 12/23/24 08:11 Ipratropium 0.5 Mg/Albuterol Sulfate 2.5 Mg Ampul.Neb 3 Ml INHALATION 3 ml Q6HRT PRN Administration wheezing Alteplase, Recombinant 2 mg 12/16/24 09:59 12/16/24 16:31 Alteplase 2 Mg Vial (Cathflo) IV PUSH 2 mg ONCE PRN Administration Line Occlusion Bisacodyl 10 mg 12/19/24 08:26 12/19/24 09:19 Bisacodyl 10 Mg Suppository RECTAL 10 mg QAM PRN Administration Constipation Dextrose 12.5 gm 12/11/24 11:48 Dextrose 50% 25 Gm/50 Ml Syringe IV PUSH PRN PRN Hypoglycemia Protocol Enoxaparin Sodium 40 mg 12/13/24 09:00 12/23/24 08:44 Enoxaparin 40 Mg/0.4 Ml Syringe SUB-Q 40 mg DAILY SANTIAGO Administration Folic Acid 1 mg 12/11/24 09:00 12/23/24 08:44 Folic Acid 1 Mg/0.2 Ml Inj IV PUSH 1 mg QAM SANTIAGO Administration Glucagon 1 mg 12/11/24 11:48 Glucagon For Inj 1 Mg Vial IM PRN PRN Hypoglycemia Protocol Glucose 15 gm 12/11/24 11:48 Glucose Oral Gel 15 Gm Of Glucse In 37.5 Gm Tube PO PRN PRN Hypoglycemia Protocol Dextrose 1,000 mls @ 100 mls/hr 12/11/24 11:48 Dextrose 5% 1,000 Ml IVPB PRN PRN Hypoglycemia Protocol Labetalol HCl 20 mg 12/23/24 07:50 Labetalol Hcl Inj 100 Mg/20 Ml Vial IV PUSH Q4H PRN SBP > 160 and HR> 60 -1st choice Metoprolol Tartrate 5 mg 12/12/24 01:00 12/23/24 08:43 Metoprolol Tartrate Inj 5 Mg/5 Ml Vial IV PUSH 5 mg Q4H SANTIAGO Administration Metoprolol Tartrate 25 mg 12/13/24 21:00 12/23/24 08:44 Metoprolol Tartrate 25 Mg Tablet PO Not Given Q12HR SANTIAGO Ondansetron HCl 4 mg 12/11/24 04:19 Ondansetron Inj 4 Mg/2 Ml Vial IV PUSH Q6H PRN Nausea And Vomiting Pantoprazole Sodium 40 mg 12/13/24 09:00 12/23/24 08:44 Pantoprazole Sodium Iv 40 Mg Vial IV PUSH 40 mg QAM SANTIAGO Administration Polyethylene Glycol 17 gm 12/16/24 10:22 12/23/24 08:44 Polyethylene Glycol 3350 17 Gm Powd.Pack PO Not Given QAM SANTIAGO Senna/Docusate Sodium 1 tab 12/16/24 21:00 12/22/24 19:31 Senna/Docusate Sodium Tablet PO Not Given HS SANTIAGO Sodium Chloride 20 ml 12/12/24 11:00 Central Line Flush IV PUSH PRN PRN after blood draws Sodium Chloride 10 ml 12/12/24 11:00 Central Line Flush IV PUSH PRN PRN with TPN bag changes Sodium Chloride 10 ml 12/13/24 14:00 12/23/24 05:38 Central Line Flush IV PUSH 10 ml Q8HR SANTIAGO Administration Sodium Chloride 20 ml 12/13/24 12:24 12/23/24 05:38 Central Line Flush IV PUSH 20 ml PRN PRN Administration after blood draws Thiamine HCl 100 mg 12/11/24 09:00 12/23/24 08:43 Thiamine Hcl 200 Mg/2 Ml Vial IV PUSH 100 mg QAM SANTIAGO Administration Radiology Results: ITS Impressions Chest CTA 12/10/24 19:15 IMPRESSION: No pulmonary embolism. No aortic dissection. Multifocal pneumonia. Chest CT 12/15/24 16:37 IMPRESSION: Endotracheal tube, left IJ central venous line, NG tube, all in good position. Pulmonary opacities likely representing worsening atypical/viral infection. Small cavitary lesions noted in the right upper lobe. A component of aspiration could be considered given the presence of airway secretions/debris. Trace bilateral pleural effusions. Ascending aortic ectasia. Abdomen X-Ray 12/18/24 14:59 IMPRESSION: 1. Normal bowel gas pattern. Chest X-Ray 12/23/24 06:36 Impression: Patchy alveolar and interstitial disease bilaterally. Correlate for patchy pneumonia, with possible underlying chronic interstitial disease. Stable support line. Labs Labs: Laboratory Results - last 24 hr 12/22/24 12/22/24 12/22/24 10:00 11:30 17:22 WBC RBC Hgb Hct MCV MCH MCHC RDW Plt Count MPV Puncture Site Right radial ABG pH 7.469 H ABG pCO2 41.7 ABG pO2 70.1 L ABG PO2/FiO2 Ratio 2.34 ABG HCO3 29.6 H ABG O2 Saturation 95.0 ABG O2 Content 16.2 ABG Base Excess 5.4 A-a Gradient 94.8 Oxyhemoglobin 93.2 Carboxyhemoglobin Methemoglobin Reduced Hemoglobin Total Hemoglobin 12.3 O2 Delivery Device Ventilator O2 Liters/Min Not Reportable Minute Volume Not Reportable Vent Rate Not Reportable Vent Mode Spontaneous FiO2 30 Expiratory Pressure Tidal Volume Not Reportable PEEP 8 Inspiratory Pressure Peak Inspir Pressure Not Reportable Pressure Support 5 Sodium Potassium Chloride Carbon Dioxide Anion Gap BUN Creatinine Estim Creat Clear Calc Estimated GFR Glucose POC Capillary Glucose 113 H 105 Calcium Magnesium Total Bilirubin AST ALT Alkaline Phosphatase Total Protein Albumin 12/23/24 12/23/24 12/23/24 00:31 05:12 05:36 WBC 6.6 RBC 3.04 L Hgb 10.1 L Hct 30.7 L MCV 101.0 H MCH 33.2 MCHC 32.9 RDW 13.2 Plt Count 302 MPV 9.5 Puncture Site Right radial ABG pH 7.522 H* ABG pCO2 32.7 L ABG pO2 77.5 L ABG PO2/FiO2 Ratio 2.58 ABG HCO3 26.2 H ABG O2 Saturation 96.7 ABG O2 Content 18.3 ABG Base Excess 3.8 A-a Gradient 98.0 Oxyhemoglobin 94.7 Carboxyhemoglobin 0.6 Methemoglobin 0.3 Reduced Hemoglobin 4.4 Total Hemoglobin 13.7 O2 Delivery Device Non-invasive vent O2 Liters/Min Not Reportable Minute Volume Vent Rate 12 Vent Mode FiO2 30 Expiratory Pressure 8 Tidal Volume PEEP Inspiratory Pressure 14 Peak Inspir Pressure Pressure Support Sodium 146 H Potassium 3.8 Chloride 108 H Carbon Dioxide 31 H Anion Gap 7 BUN 45 H Creatinine 1.18 Estim Creat Clear Calc 61 Estimated GFR > 60 Glucose 117 H POC Capillary Glucose 103 Calcium 8.8 Magnesium 2.1 Total Bilirubin 0.7 AST 41 ALT 35 Alkaline Phosphatase 97 Total Protein 7.0 Albumin 3.2 L Quality VTE Prophylaxis VTE prophylaxis: pharmacologic ordered
--- NOTE | 2024-12-23 10:37 | PCFNICU ---
ICU Rounding Note: Pt current nutrition is NPO awaiting speech evaluation. Nutrition recommendation: Diet per speech. Following for recommendations Last recorded weight is 76.9 kg. Bowel Motility: +1 BM 12/23/24 Labs Reviewed: Hgb 10.1, Hct 30.7, Alb 3.2, Na 146, Glu 117 Meds Noted: Thiamine, folic acid, protonix, miralax Skin: No pressure injuries Additional Notes: Successfully extubated. No sedation. Awaiting speech recommendations for diet. RN said he coughed with liquids this morning. Continue to follow Following daily in ICU rounds. Will monitor weight, labs, skin, diet orders, meds every Monday and Monday. .
--- NOTE | 2024-12-23 11:18 | PCSTNOTE ---
Please refer to the Bedside Swallow Evaluation in the EMR. Please note, silent aspiration cannot be ruled out at bedside. The above-confused pt, admitted for flu A, acute hypoxia, COPD and recent intubation/extubation x10 days, was seen for a swallow evaluation at the bedside. The pt was positioned upright in the bed. He was confused/Ox1; He is currently NPO awaiting ST evaluation. Pt was extubated yesterday. Oral mucosa is dry; natural dentition is in poor condition with many missing teeth; ST could not readily assess upper dentition or oral motor musculature as pt did not follow directives for the oral motor assessment. He was able to dry swallow on command and exhibited a clear vocal quality. He was tested with two 3 ml trials of ice chips and pudding in 1/2 tsp and 1 tsp amounts; During the oral stages, it was as though a short bolus hold was exhibited; no oral leakage or pocketing was noted after the swallow. During the pharyngeal stage, swallow reflex appeared prompt but adequacy of laryngeal elevation was questionable. Overt s/s of aspiration were exhibited, i.e. coughing occurred after the 2nd pudding trial; at that time the bedside swallow evaluation was terminated and an MBS was recommended. General impression: questionable degree of dysphagia. Recommendation: MBS to further assess swallow ability, determine a safe diet, as well as an appropriate POC. Thank you for this referral.
--- NOTE | 2024-12-23 11:25 | PCPTNOTE ---
Patient not answering therapist questions [id number] and looking around the room for his son. RN aware, will follow.
[2024-12-23 11:33] LABS: Glucose Point of Care 128 mg/dl (65-105)
--- NOTE | 2024-12-23 12:58 | PC.NURSE ---
Dr. Goodson notified of patient being downgraded to IMU status via telephone.
--- NOTE | 2024-12-23 15:27 | PCSTNOTE ---
Please refer to the Modified Barium Swallow Evaluation in the EMR. The above pt was seen for a modified barium swallow evaluation due to overt s/s of aspiration (coughing) during the bedside swallow evaluation. He was seated for a lateral view and presented with thin liquid in 3 & 5-ml amounts via a spoon; pudding via a spoon and small pieces of cracker mixed with barium pudding via a spoon. He was also tested with uncontrolled thin liquids via cup sips and straw drinking. During the oral stages, pt would occasionally hold contents without initiation for a few seconds, but with a verbal cue, he would proceed to initiate the oral stage. He also exhibited scattered/generalized residual of small remnants of the cracker on his tongue. He appeared to not understand directive to clear the contents within his mouth and swallow again thus requiring a liquid wash which was effective and cleared residual. During the pharyngeal stage, reduced laryngeal elevation was exhibited as evidenced by laryngeal penetration during the swallow. All contents were cleared from the laryngeal vestibule and no aspiration was observed. It is felt that the pt is at risk for aspiration especially with large amounts via straw drinking or if HOB is not elevated completely. Impression: Mild dysphagia Recommendation: level 5 minced and moist diet with regular thin liquids. Pt should be seated completely upright with all oral intake including med pass; encourage small cup sips; no straws. Pt does not consistently follow commands and is not a candidate for ST.
[2024-12-23 17:32] LABS: Glucose Point of Care 129 mg/dl (65-105)
[2024-12-24] VITALS (17 sets, daily range): BP systolic 148–181; BP diastolic 82–104; PULSE 77–94; RESP 14–23; TEMP 36.5–37.2; O2SAT 93–98
[2024-12-24] MEDS: METOPROLOL TARTRATE INJ 5 MG/5 ML VIAL IV PUSH ×2 (00:09→05:05)
[2024-12-24 00:58] LABS: Glucose Point of Care 115 mg/dl (65-105)
[2024-12-24] MEDS: LABETALOL HCL INJ 100 MG/20 ML VIAL 20 MG IV PUSH ×2 (01:01→20:54)
[2024-12-24] MEDS: hydrALAZINE HCL 20 MG/ML VIAL 10 MG IV PUSH (03:26)
[2024-12-24] MEDS: CENTRAL LINE FLUSH 10 ML IV PUSH ×3 (05:06→20:56)
[2024-12-24 05:46] LABS: Hematocrit 30.6 % (42.0-52.0); Hemoglobin 9.6 g/dL (14.0-18.0); Mean Corpuscular HGB Conc 31.4 g/dl (32-36); Mean Corpuscular Hemoglobin 32.3 pg (26-34); Mean Platelet Volume 9.5 fl (7.4-10.4); Platelet Count Result 315 k/mm3 (150-375); Red Blood Count 2.97 M/mm3 (4.6-6.20); Red Cell Distribution Width 13.2 % (11.5-14.5); White Blood Count 5.6 K/mm3 (4.5-10.0)
[2024-12-24 06:04] LABS: Alanine Aminotransferase 29 U/L (6-50); Albumin Level 3.1 g/dL (3.5-5.1); Alkaline Phosphatase 90 U/L (38-126); Anion Gap 7 mmol/L (4-12); Aspartate Amino Transferase 35 U/L (17-59); Bilirubin,Total 0.7 mg/dL (0.2-1.3); Blood Urea Nitrogen 45 mg/dL (9-20); Calcium 8.6 mg/dL (8.4-10.2); Carbon Dioxide 31 mmol/L (22-30); Chloride 112 mmol/L (98-107); Estimated CRCL calculation 54 ml/min; Estimated Glomerular Filt Rate 54; Glucose 119 mg/dL (65-110); Magnesium 2.4 mg/dL (1.6-2.3); Potassium 3.6 mmol/L (3.4-5.0); Sodium 150 mmol/L (137-145)
[2024-12-24] MEDS: POTASSIUM CHLORIDE 20 MEQ PACKET (FOR LIQUID) 40 MEQ PO (09:00)
[2024-12-24] MEDS: amLODIPine BESYLATE 10 MG TABLET PO (09:01)
[2024-12-24] MEDS: FOLIC ACID 1 MG TABLET PO (09:01)
[2024-12-24] MEDS: THIAMINE HCL 100 MG TABLET PO (09:01)
[2024-12-24] MEDS: METOPROLOL TARTRATE 50 MG TAB PO ×2 (09:01→20:55)
[2024-12-24] MEDS: PANTOPRAZOLE SODIUM IV 40 MG VIAL IV PUSH (09:01)
[2024-12-24] MEDS: ENOXAPARIN 40 MG/0.4 ML SYRINGE SUB-Q (09:01)
[2024-12-24] MEDS: polyethylene glycoL 3350 17 GM POWD.PACK PO (09:01)
--- NOTE | 2024-12-24 09:14 | P.PNIM_ITS ---
Progress Note: A&P Assessment and Plan (1) Acute respiratory failure: Code(s): J96.00 - Acute respiratory failure, unspecified whether with hypoxia or hypercapnia Status: Acute Assessment and Plan: 12/12: Acute respiratory failure/impending respiratory failure likely related to altered mentation secondary to alcohol withdrawal, respiratory distress due to pneumonia and influenza A, COPD/emphysema -12/12: Intubated in the ICU -currently on CMV mode of ventilation, peep of 8 and 30% FiO2, saturating 90 91% -continue bronchodilators given history of COPD -Sedated with propofol and fentanyl infusion, maintain RASS of 0 to -2, daily SBT and SAT -12/15: chest x-rays have not been improving so opted to obtain chest CT which is as under -12/16: Consulted pulmonology and patient had bronchoscopy. Culture sent -antibiotic and antiviral as below -sedation holiday was performed and patient placed on 5/8 PSV but patient became tachypneic with respiratory rate in 30s and failed his trial. -12/18 chest x-ray reviewed and appears worse. For further fluids - 12/18 for weaning trial as chest x-ray appears worsened patient has increased oxygen requirement -12/19 sedation holiday was performed patient not a candidate for weaning trial due to tachypnea tachycardia on loading sedation IV Lasix 12/20 chest x-ray pending, sedation holiday ordered. Patient was placed on PSV 5/8 she tolerated for only little bit of time and then became tachypneic with respiratory rate up to 40s. Patient was placed back on CMV and restarted on low-dose sedatives 12/21 sedation holiday was performed will attempt PSV weaning trial again. Lasix IV x1 today 12/22 Lasix IV give 5/8 PSV SBT done for more than 1 hour. RSBI, ABGI and Vitals acceptable. Patient is quite weak but does have a decent cough reflex. Pt awake and fo llowing commands. Will extubate and monitor. NPO for now. Bipap PRN at night. If he gets reintubate he will need tracheostomy 12/23 doing well and on nasal cannula. Continue supplemental oxygen. Continue incentive spirometry. Up in chair -12/15: Repeat CT chest: IMPRESSION: Endotracheal tube, left IJ central venous line, NG tube, all in good position. Pulmonary opacities likely representing worsening atypical/viral infection. Small cavitary lesions noted in the right upper lobe. A component of aspiration could be considered given the presence of airway secretions/debris. Trace bilateral pleural effusions. Ascending aortic ectasia (2) Multifocal pneumonia: Code(s): J18.9 - Pneumonia, unspecified organism Status: Acute Assessment and Plan: 12/10: CT chest PE protocol was negative for PE, but showed bilateral multifocal pneumonia -chest x-ray also showed bilateral multifocal pneumonia -patient tested positive for influenza A 12/10: Blood cultures negative x2 12/12: Sputum cultures are negative 12/12: Nasal MRSA not detected Completed course meropenem Completed doxycycline, Discontinue vancomycin (12/19) Completed course off Tamiflu (3) COPD with emphysema: Code(s): J43.9 - Emphysema, unspecified Status: Acute Assessment and Plan: History of COPD/emphysema See above (4) SVT (supraventricular tachycardia): Code(s): I47.10 - Supraventricular tachycardia, unspecified Status: Acute Assessment and Plan: Patient went into SVT on admission, appreciate cardiology evaluation and rec ommendation likely related to respiratory distress from pneumonia, influenza, alcohol withdrawal. -patient was started on metoprolol per tube by cardiology (12/13) -currently in sinus rhythm, rate controlled, patient does have intermittent SVTs which is short-lived -continue beta-shannan . Echo Summary 1. Complete two-dimensional, color flow and Doppler transthoracic echocardiogram is performed. 2. Technically difficult study with limited views as patient is supine, confused, and restrained with mittens. 3. Overall does appear to have normal biventricular size and systolic func tion. 4. There does not appear to be any significant valvular disease. (5) Alcohol withdrawal: Code(s): F10.939 - Alcohol use, unspecified with withdrawal, unspecified Status: Acute Assessment and Plan: Patient does have a history of significant alcohol use -in the IMU he had elevated CIWA score and received multiple doses of Ativan -12/12: when I evaluated the patient he was confused, tremulous, and was in alcohol withdrawal -continue thiamine and folic acid Precedex weaned off (6) Electrolyte abnormality: Code(s): E87.8 - Other disorders of electrolyte and fluid balance, not elsewhere classified Status: Acute Assessment and Plan: Potassium replacement ordered (7) MICHELLE (acute kidney injury): Code(s): N17.9 - Acute kidney failure, unspecified Status: Acute Assessment and Plan: 12/17 Increase in creatinine as compared to yesterday. Patient was given IV albumin and IV fluids Discontinued vancomycin Monitor urine output electrolytes and creat (8) Ileus: Code(s): K56.7 - Ileus, unspecified Status: Acute Assessment and Plan: Decreased bowel sounds and slight abdominal distension on exam KUB does showed normal bowel gas pattern at this time Patient was tolerating tube feeding and had bowel movements. Now off of tube feed post extubate Continue MiraLax, add Dulcolax suppository Improved. Monitor (9) Hypertension: Code(s): I10 - Essential (primary) hypertension Status: Acute Assessment and Plan: Increase dose of metoprolol and add Norvasc Plan DVT prophylaxis: Lovenox Stress ulcer prophylaxis: Protonix Nutrition: Diet ordered Code Status: Full code Speech therapy for bedside swallow eval swallow evaluation, incentive spirometry, PT OT Subjective Date/time seen: 12/24/24 He states he feels' not too bad' Denies any pain but does complain of shortness of breath intermittently. He has cough. He denies any abdominal pain nausea vomiting. He passed his modified barium swallow and is on modified diet. He has good urine output. He is afebrile. He did not do much with physical therapy yesterday All other systems were reviewed and were negative Review of Systems Review of Systems: All systems reviewed & are unremarkable except as noted in HPI and below (HPI) Exam Narrative: General: I alert awake and in no acute distress HEENT:? Pupils equal and reactive, sclera is clear Neck:? Supple Respiratory:? Clear breath sounds bilaterally, decreased at bases Cardiac:? S1-S2 is normal, regular rate and rhythm Abdomen:? Soft, nontender, mildly distended, absent bowel sound Extremities:? No edema, palpable pedal pulses Neuro:? AO x2, moves all extremities and follows command Skin:? Warm and dry, bruising noted on bilateral upper and lower extremity Psych:? Normal speech and affect Objective Data Vital Signs Vital Signs: Vital Signs - 24 hr 12/23/24 10:00 12/23/24 10:00 12/23/24 12:00 Temperature 36.8 C 37.2 C Pulse Rate 95 94 95 Respiratory Rate 20 20 Blood Pressure 157/88 H 154/82 H Pulse Oximetry 95 95 Oxygen Delivery Oxygen Flow Rate 12/23/24 12:00 12/23/24 12:00 12/23/24 12:17 Temperature Pulse Rate 94 96 Respiratory Rate Blood Pressure Pulse Oximetry 95 Oxygen Delivery Nasal Cannula Oxygen Flow Rate 3 12/23/24 14:00 12/23/24 16:00 12/23/24 16:00 Temperature 37.7 C H Pulse Rate 90 95 Respiratory Rate 22 H Blood Pressure 158/100 H Pulse Oximetry 96 95 Oxygen Delivery Nasal Cannula Oxygen Flow Rate 3 12/23/24 16:00 12/23/24 18:00 12/23/24 18:07 Temperature Pulse Rate 91 87 94 Respiratory Rate Blood Pressure Pulse Oximetry Oxygen Delivery Oxygen Flow Rate 12/23/24 20:00 12/23/24 20:00 12/23/24 20:00 Temperature 37.1 C Pulse Rate 95 95 Respiratory Rate 22 H Blood Pressure 168/97 H Pulse Oximetry 96 97 Oxygen Delivery Nasal Cannula Oxygen Flow Rate 3 12/23/24 21:04 12/24/24 00:00 12/24/24 00:00 Temperature Pulse Rate 94 88 Respiratory Rate 18 Blood Pressure 181/101 H Pulse Oximetry 98 98 Oxygen Delivery Nasal Cannula Oxygen Flow Rate 3 12/24/24 00:00 12/24/24 00:09 12/24/24 01:01 Temperature Pulse Rate 92 80 77 Respiratory Rate Blood Pressure Pulse Oximetry Oxygen Delivery Oxygen Flow Rate 12/24/24 03:57 12/24/24 04:00 12/24/24 04:00 Temperature 36.9 C Pulse Rate 93 93 Respiratory Rate 22 H Blood Pressure 172/98 H Pulse Oximetry 95 95 Oxygen Delivery Nasal Cannula Oxygen Flow Rate 3 12/24/24 05:05 12/24/24 09:01 Temperature Pulse Rate 94 87 Respiratory Rate Blood Pressure Pulse Oximetry Oxygen Delivery Oxygen Flow Rate Intake/Output Intake/Output: Intake & Output 12/21/24 12/22/24 12/23/24 12/24/24 23:59 23:59 23:59 23:59 Intake Total 2848.1 1067.0 41.5 Output Total 3600 3126 1800 700 Balance -751.9 -2059.0 -1758.5 -700 Meds/Results Medications: Active Medications Generic Name Dose Route Start Last Admin Trade Name Freq PRN Reason Stop Dose Admin Acetaminophen 650 mg 12/11/24 07:58 12/18/24 16:00 Acetaminophen 325 Mg Tablet PO 650 mg Q4H PRN Administration Mild Pain (1-3) or Fever Albuterol/Ipratropium 3 ml 12/23/24 07:50 12/23/24 08:11 Ipratropium 0.5 Mg/Albuterol Sulfate 2.5 Mg Ampul.Neb 3 Ml INHALATION 3 ml Q6HRT PRN Administration wheezing Alteplase, Recombinant 2 mg 12/16/24 09:59 12/16/24 16:31 Alteplase 2 Mg Vial (Cathflo) IV PUSH 2 mg ONCE PRN Administration Line Occlusion Amlodipine Besylate 10 mg 12/24/24 09:00 12/24/24 09:01 Amlodipine Besylate 10 Mg Tablet PO 10 mg DAILY SANTIAGO Administration Bisacodyl 10 mg 12/19/24 08:26 12/19/24 09:19 Bisacodyl 10 Mg Suppository RECTAL 10 mg QAM PRN Administration Constipation Dextrose 12.5 gm 12/11/24 11:48 Dextrose 50% 25 Gm/50 Ml Syringe IV PUSH PRN PRN Hypoglycemia Protocol Enoxaparin Sodium 40 mg 12/13/24 09:00 12/24/24 09:01 Enoxaparin 40 Mg/0.4 Ml Syringe SUB-Q 40 mg DAILY SANTIAGO Administration Folic Acid 1 mg 12/24/24 09:00 12/24/24 09:01 Folic Acid 1 Mg Tablet PO 1 mg DAILY SANTIAGO Administration Glucagon 1 mg 12/11/24 11:48 Glucagon For Inj 1 Mg Vial IM PRN PRN Hypoglycemia Protocol Glucose 15 gm 12/11/24 11:48 Glucose Oral Gel 15 Gm Of Glucse In 37.5 Gm Tube PO PRN PRN Hypoglycemia Protocol Dextrose 1,000 mls @ 100 mls/hr 12/11/24 11:48 Dextrose 5% 1,000 Ml IVPB PRN PRN Hypoglycemia Protocol Labetalol HCl 20 mg 12/23/24 07:50 12/24/24 01:01 Labetalol Hcl Inj 100 Mg/20 Ml Vial IV PUSH 20 mg Q4H PRN Administration SBP > 160 and HR> 60 -1st choice Metoprolol Tartrate 5 mg 12/24/24 07:57 Metoprolol Tartrate Inj 5 Mg/5 Ml Vial IV PUSH Q4H PRN HR > 120 Metoprolol Tartrate 50 mg 12/24/24 09:00 12/24/24 09:01 Metoprolol Tartrate 50 Mg Tab PO 50 mg Q12HR SANTIAGO Administration Ondansetron HCl 4 mg 12/11/24 04:19 Ondansetron Inj 4 Mg/2 Ml Vial IV PUSH Q6H PRN Nausea And Vomiting Pantoprazole Sodium 40 mg 12/13/24 09:00 12/24/24 09:01 Pantoprazole Sodium Iv 40 Mg Vial IV PUSH 40 mg QAM SANTIAGO Administration Polyethylene Glycol 17 gm 12/16/24 10:22 12/24/24 09:01 Polyethylene Glycol 3350 17 Gm Powd.Pack PO 17 gm QAM SANTIAGO Administration Senna/Docusate Sodium 1 tab 12/16/24 21:00 12/23/24 19:58 Senna/Docusate Sodium Tablet PO Not Given HS SANTIAGO Sodium Chloride 20 ml 12/12/24 11:00 Central Line Flush IV PUSH PRN PRN after blood draws Sodium Chloride 10 ml 12/12/24 11:00 Central Line Flush IV PUSH PRN PRN with TPN bag changes Sodium Chloride 10 ml 12/13/24 14:00 12/24/24 05:06 Central Line Flush IV PUSH 10 ml Q8HR SANTIAGO Administration Sodium Chloride 20 ml 12/13/24 12:24 12/23/24 05:38 Central Line Flush IV PUSH 20 ml PRN PRN Administration after blood draws Thiamine HCl 100 mg 12/24/24 09:00 12/24/24 09:01 Thiamine Hcl 100 Mg Tablet PO 100 mg QAM SANTIAGO Administration Radiology Results: ITS Impressions Chest CTA 12/10/24 19:15 IMPRESSION: No pulmonary embolism. No aortic dissection. Multifocal pneumonia. Chest CT 12/15/24 16:37 IMPRESSION: Endotracheal tube, left IJ central venous line, NG tube, all in good position. Pulmonary opacities likely representing worsening atypical/viral infection. Small cavitary lesions noted in the right upper lobe. A component of aspiration could be considered given the presence of airway secretions/debris. Trace bilateral pleural effusions. Ascending aortic ectasia. Abdomen X-Ray 12/18/24 14:59 IMPRESSION: 1. Normal bowel gas pattern. Chest X-Ray 12/23/24 06:36 Impression: Patchy alveolar and interstitial disease bilaterally. Correlate for patchy pneumonia, with possible underlying chronic interstitial disease. Stable support line. Modified Barium Swallow 12/23/24 15:07 IMPRESSION: Please refer to speech pathologist report for additional findings ADDENDUM: 12/23/24 1539 MODIFIED ESOPHAGRAM HISTORY: Prolonged intubation TECHNIQUE: Modified barium esophagram was performed by speech pathologist under radiologist fluoroscopic guidance. This was recorded on tape. The exam was reviewed on 12/23/2024 15:07 [employer]FT [employer]. The DAP for this procedure was 1.7 Gycm2. Fluoroscopy time is 2 minutes 1 second. FINDINGS: Lateral projection of the cervical spine demonstrates age- appropriate degenerative disease. Reduced laryngeal elevation. Laryngeal penetration, which cleared without aspiration. Patient unable to masticate effectively IMPRESSION: Please refer to speech pathologist report for additional findings Labs Labs: Laboratory Results - last 24 hr 12/23/24 12/23/24 12/24/24 11:24 17:30 00:50 WBC RBC Hgb Hct MCV MCH MCHC RDW Plt Count MPV Sodium Potassium Chloride Carbon Dioxide Anion Gap BUN Creatinine Estim Creat Clear Calc Estimated GFR Glucose POC Capillary Glucose 128 H 129 H 115 H Calcium Magnesium Total Bilirubin AST ALT Alkaline Phosphatase Total Protein Albumin 12/24/24 05:04 WBC 5.6 RBC 2.97 L Hgb 9.6 L Hct 30.6 L MCV 103.0 H MCH 32.3 MCHC 31.4 L RDW 13.2 Plt Count 315 MPV 9.5 Sodium 150 H Potassium 3.6 Chloride 112 H Carbon Dioxide 31 H Anion Gap 7 BUN 45 H Creatinine 1.34 H Estim Creat Clear Calc 54 Estimated GFR 54 L Glucose 119 H POC Capillary Glucose Calcium 8.6 Magnesium 2.4 H Total Bilirubin 0.7 AST 35 ALT 29 Alkaline Phosphatase 90 Total Protein 7.0 Albumin 3.1 L Quality VTE Prophylaxis VTE prophylaxis: pharmacologic ordered
--- NOTE | 2024-12-24 09:43 | PCPTNOTE ---
attempted PT eval, pt unable to orient or follow any commands at this time, attempted to move pt's legs and pt unable to comprehend task, asked pt to grab my hand and pt did not understand command, will follow as pt is more alert
--- NOTE | 2024-12-24 10:29 | PCDIET ---
Spoke with nursing today regarding PO intake. Diet order advanced to Minced and Moist, Level 5/Heart Healthy. Nursing did assist patient with meals. Recommend diet supplement for additional kcal and protein needs.
[2024-12-24] MEDS: SENNA/DOCUSATE SODIUM TABLET 1 TAB PO (20:55)
[2024-12-25] VITALS (21 sets, daily range): BP systolic 149–185; BP diastolic 90–108; PULSE 72–151; RESP 17–29; TEMP 36.9–37.1; O2SAT 92–98
[2024-12-25] MEDS: LABETALOL HCL INJ 100 MG/20 ML VIAL 20 MG IV PUSH ×3 (02:28→22:37)
[2024-12-25] MEDS: hydrALAZINE HCL 20 MG/ML VIAL 10 MG IV PUSH ×3 (03:14→17:21)
[2024-12-25 05:38] LABS: Hematocrit 31.6 % (42.0-52.0); Mean Corpuscular HGB Conc 31.6 g/dl (32-36); Mean Corpuscular Hemoglobin 32.6 pg (26-34); Mean Corpuscular Volume 102.9 fl (80-100); Mean Platelet Volume 8.9 fl (7.4-10.4); Platelet Count Result 303 k/mm3 (150-375); Red Blood Count 3.07 M/mm3 (4.6-6.20); Red Cell Distribution Width 13.1 % (11.5-14.5); White Blood Count 7.2 K/mm3 (4.5-10.0)
[2024-12-25] MEDS: CENTRAL LINE FLUSH 10 ML IV PUSH ×3 (05:46→20:04)
[2024-12-25 05:47] LABS: Alanine Aminotransferase 30 U/L (6-50); Albumin Level 3.4 g/dL (3.5-5.1); Alkaline Phosphatase 90 U/L (38-126); Anion Gap 5 mmol/L (4-12); Aspartate Amino Transferase 37 U/L (17-59); Bilirubin,Total 0.8 mg/dL (0.2-1.3); Blood Urea Nitrogen 41 mg/dL (9-20); Calcium 9.3 mg/dL (8.4-10.2); Carbon Dioxide 32 mmol/L (22-30); Chloride 117 mmol/L (98-107); Estimated CRCL calculation 52 ml/min; Estimated Glomerular Filt Rate 53; Glucose 107 mg/dL (65-110); Magnesium 2.3 mg/dL (1.6-2.3); Potassium 3.6 mmol/L (3.4-5.0); Sodium 154 mmol/L (137-145)
--- NOTE | 2024-12-25 06:29 | PC.NURSE ---
Patient remains hypertensive this shift. Dr. Nicole notified of elevated blood pressure at 0300 after unsuccessful treatment with Labetalol 20 mg IVP x 2 doses. This RN received orders for 10 mg IVP Hydralazine Once. Blood pressure showing little to no improvement after 10 mg dose of Hydralazine. Dr. Nicole notified of hypertension. This RN received PRN orders for hydralazine and to give first dose of 10 mg Hydralazine now. Patient remains hypertensive with BP 180/107. Will continue to monitor.
[2024-12-25] MEDS: ENOXAPARIN 40 MG/0.4 ML SYRINGE SUB-Q (08:39)
[2024-12-25] MEDS: THIAMINE HCL 100 MG TABLET PO (08:39)
[2024-12-25] MEDS: polyethylene glycoL 3350 17 GM POWD.PACK PO (08:39)
[2024-12-25] MEDS: METOPROLOL TARTRATE 50 MG TAB PO ×2 (08:39→20:03)
[2024-12-25] MEDS: PANTOPRAZOLE SODIUM IV 40 MG VIAL IV PUSH (08:39)
[2024-12-25] MEDS: amLODIPine BESYLATE 10 MG TABLET PO (08:39)
[2024-12-25] MEDS: FOLIC ACID 1 MG TABLET PO (08:39)
[2024-12-25] MEDS: DEXTROSE 5% IN WATER 500 ML 75 ML IV CONT ×3 (10:43→22:41)
[2024-12-25] MEDS: hydrALAZINE 10 MG TABLET PO ×3 (10:56→20:03)
[2024-12-25 15:28] LABS: Sodium 153 mmol/L (137-145)
--- NOTE | 2024-12-25 15:50 | P.PNIM_ITS ---
Progress Note: A&P Assessment and Plan (1) Acute respiratory failure: Code(s): J96.00 - Acute respiratory failure, unspecified whether with hypoxia or hypercapnia Status: Acute Assessment and Plan: 12/12: Acute respiratory failure/impending respiratory failure likely related to altered mentation secondary to alcohol withdrawal, respiratory distress due to pneumonia and influenza A, COPD/emphysema -12/12: Intubated in the ICU -currently on CMV mode of ventilation, peep of 8 and 30% FiO2, saturating 90 91% -continue bronchodilators given history of COPD -Sedated with propofol and fentanyl infusion, maintain RASS of 0 to -2, daily SBT and SAT -12/15: chest x-rays have not been improving so opted to obtain chest CT which is as under -12/16: Consulted pulmonology and patient had bronchoscopy. Culture sent -antibiotic and antiviral as below -sedation holiday was performed and patient placed on 5/8 PSV but patient became tachypneic with respiratory rate in 30s and failed his trial. -12/18 chest x-ray reviewed and appears worse. For further fluids - 12/18 for weaning trial as chest x-ray appears worsened patient has increased oxygen requirement -12/19 sedation holiday was performed patient not a candidate for weaning trial due to tachypnea tachycardia on loading sedation IV Lasix 12/20 chest x-ray pending, sedation holiday ordered. Patient was placed on PSV 5/8 she tolerated for only little bit of time and then became tachypneic with respiratory rate up to 40s. Patient was placed back on CMV and restarted on low-dose sedatives 12/21 sedation holiday was performed will attempt PSV weaning trial again. Lasix IV x1 today 12/22 Lasix IV give 5/8 PSV SBT done for more than 1 hour. RSBI, ABGI and Vitals acceptable. Patient is quite weak but does have a decent cough reflex. Pt awake and fo llowing commands. Will extubate and monitor. NPO for now. Bipap PRN at night. If he gets reintubate he will need tracheostomy 12/23 doing well and on nasal cannula. Continue supplemental oxygen. Continue incentive spirometry. Up in chair 12/25: I assumed care today. Patient is currently extubated on and on nasal cannula 3 L. -12/15: Repeat CT chest: IMPRESSION: Endotracheal tube, left IJ central venous line, NG tube, all in good position. Pulmonary opacities likely representing worsening atypical/viral infection. Small cavitary lesions noted in the right upper lobe. A component of aspiration could be considered given the presence of airway secretions/debris. Trace bilateral pleural effusions. Ascending aortic ectasia (2) Multifocal pneumonia: Code(s): J18.9 - Pneumonia, unspecified organism Status: Acute Assessment and Plan: 12/10: CT chest PE protocol was negative for PE, but showed bilateral multifocal pneumonia -chest x-ray also showed bilateral multifocal pneumonia -patient tested positive for influenza A 12/10: Blood cultures negative x2 12/12: Sputum cultures are negative 12/12: Nasal MRSA not detected Completed course meropenem Completed doxycycline, Discontinue vancomycin (12/19) Completed course off Tamiflu (3) COPD with emphysema: Code(s): J43.9 - Emphysema, unspecified Status: Acute Assessment and Plan: History of COPD/emphysema See above (4) SVT (supraventricular tachycardia): Code(s): I47.10 - Supraventricular tachycardia, unspecified Status: Acute Assessment and Plan: Patient went into SVT on admission, appreciate cardiology evaluation and recommendation likely related to respiratory distress from pneumonia, influenza, alcohol withdrawal. -patient was started on metoprolol per tube by cardiology (12/13) -currently in sinus rhythm, rate controlled, patient does have intermittent SVTs which is short-lived -continue beta-shannan . Echo Summary 1. Complete two-dimensional, color flow and Doppler transthoracic echocardiogram is performed. 2. Technically difficult study with limited views as patient is supine, confused, and restrained with mittens. 3. Overall does appear to have normal biventricular size and systolic function. 4. There does not appear to be any significant valvular disease. (5) Alcohol withdrawal: Code(s): F10.939 - Alcohol use, unspecified with withdrawal, unspecified Status: Acute Assessment and Plan: Patient does have a history of significant alcohol use -in the IMU he had elevated CIWA score and received multiple doses of Ativan -12/12: patient was confused, tremulous, and was in alcohol withdrawal -continue thiamine and folic acid Precedex weaned off -12/25: Will do as needed Ativan if patient is anxious (6) Electrolyte abnormality: Code(s): E87.8 - Other disorders of electrolyte and fluid balance, not elsewhere classified Status: Acute Assessment and Plan: Potassium replacement ordered (7) MICHELLE (acute kidney injury): Code(s): N17.9 - Acute kidney failure, unspecified Status: Acute Assessment and Plan: 12/17 Increase in creatinine as compared to yesterday. Patient was given IV albumin and IV fluids Discontinued vancomycin Monitor urine output electrolytes and creat (8) Ileus: Code(s): K56.7 - Ileus, unspecified Status: Acute Assessment and Plan: Decreased bowel sounds and slight abdominal distension on exam KUB does showed normal bowel gas pattern at this time Patient was tolerating tube feeding and had bowel movements. Now off of tube feed post extubate Continue MiraLax, add Dulcolax suppository Improved. Monitor (9) Hypertension: Code(s): I10 - Essential (primary) hypertension Status: Acute Assessment and Plan: Increase dose of metoprolol and add Norvasc and hydralazine Plan DVT prophylaxis: Lovenox Stress ulcer prophylaxis: Protonix Nutrition: Diet ordered Code Status: Full code Speech therapy for bedside swallow eval swallow evaluation, incentive spir ometry, PT OT Subjective Date/time seen: 12/25/24 15:50 Interval history: Patient appears tired. His sodium is intubated and started on D5W. Sodium check every 4 hours. Patient also has evidence of hypertension and started on hydralazine 10 mg p.o. t.i.d.. Review of Systems Review of Systems: Cough for 3+ months, patient is a very poor historian and can not really contribute in a meaningful way to history taking. All systems reviewed & are unremarkable except as noted in HPI and below (HPI) ROS unobtainable: Yes unobtainable due to endotracheal tube, unobtainable due to medical condition and unobtainable due to mental status Exam Narrative: General: I alert awake and in no acute distress HEENT:? Pupils equal and reactive, sclera is clear Neck:? Supple Respiratory:? Clear breath sounds bilaterally, decreased at bases Cardiac:? S1-S2 is normal, regular rate and rhythm Abdomen:? Soft, nontender, mildly distended, absent bowel sound Extremities:? No edema, palpable pedal pulses Neuro:? AO x2, moves all extremities and follows command Skin:? Warm and dry, bruising noted on bilateral upper and lower extremity Psych:? Normal speech and affect Const: General: comfortable, no acute distress, well developed, alert, awake, ill appearing acutely and underweight Nutritional Appearance: underweight Orientation/consciousness: patient oriented x3 Other: Patient looks older than stated age, having bouts of cough HENMT: Head: normal to inspection, normocephalic and atraumatic Ears: hearing grossly normal bilaterally Face/Nose/Sinus: normal facial exam Face and sinus: normal facial exam Eyes: General: appearance normal, both eyes and all related structures P upils: Equal, round and reactive pupils present EOM: EOMs intact bilaterally Neck: Neck: full ROM, no lymphadenopathy and no JVD Thyroid: thyroid normal Lymphatic: no lymphadenopathy noted Resp: Effort & Inspection: normal respiratory effort, able to speak in complete sentences, Actively coughing and tachypneic Auscultation: crackles, wheezes and diminished lung sounds Cardio: Jugular venous distension: no JVD Rate: tachycardic Rhythm: abnormal rhythm irregularly irregular Heart sounds: S1 normal heart sound present and S2 normal heart sound present GI: Inspection: normal to inspection : General: Yes deferred Skin: Rashes: no rashes Wounds: no wounds Neuro: General: patient oriented x3 and CN's II-XI intact bilaterally Cranial nerves: Yes CN's II-XII intact bilaterally and Yes Equal, round and reactive pupils present Cognition (Neuro): normal cognition Speech: normal speech Gait exam (Neuro): Normal gait present Motor exam (neuro): 5/5 motor strength present throughout Extrem: General: normal to inspection, full ROM, no joint enlargement and no pedal edema Objective Data Vital Signs Vital Signs: Vital Signs - 24 hr 12/24/24 16:00 12/24/24 16:00 12/24/24 20:00 Temperature 99.0 F Pulse Rate 87 87 Respiratory Rate 22 H Blood Pressure 148/92 H Pulse Oximetry 93 94 Oxygen Delivery Nasal Cannula Oxygen Flow Rate 2 12/24/24 20:00 12/24/24 20:40 12/24/24 20:54 Temperature Pulse Rate 85 85 92 Respiratory Rate 19 Blood Pressure Pulse Oximetry 94 Oxygen Delivery Nasal Cannula Oxygen Flow Rate 2 12/24/24 20:55 12/24/24 20:58 12/24/24 21:13 Temperature Pulse Rate 92 92 79 Respiratory Rate 23 H 21 H Blood Pressure 174/99 H 164/98 H Pulse Oximetry 93 93 Oxygen Delivery Oxygen Flow Rate 12/25/24 00:00 12/25/24 00:00 12/25/24 02:27 Temperature 98.4 F Pulse Rate 73 75 79 Respiratory Rate 20 21 H Blood Pressure 182/94 H 185/100 H Pulse Oximetry 96 96 Oxygen Delivery Oxygen Flow Rate 12/25/24 02:28 12/25/24 03:30 12/25/24 04:00 Temperature Pulse Rate 78 83 80 Respiratory Rate 25 H Blood Pressure 168/100 H Pulse Oximetry 98 Oxygen Delivery Oxygen Flow Rate 12/25/24 04:08 12/25/24 06:00 12/25/24 08:00 Temperature Pulse Rate 90 95 Respiratory Rate 29 H 20 Blood Pressure 170/95 H 183/107 H Pulse Oximetry 93 93 92 Oxygen Delivery Nasal Cannula Oxygen Flow Rate 2 12/25/24 08:00 12/25/24 08:30 12/25/24 08:30 Temperature 98.6 F Pulse Rate 94 89 92 Respiratory Rate 17 21 H Blood Pressure 159/98 H Pulse Oximetry 95 92 Oxygen Delivery Nasal Cannula Oxygen Flow Rate 2 12/25/24 08:39 12/25/24 12:00 12/25/24 14:11 Temperature Pulse Rate 95 83 82 Respiratory Rate Blood Pressure Pulse Oximetry Oxygen Delivery Oxygen Flow Rate Intake/Output Intake/Output: Intake & Output 12/22/24 12/23/24 12/24/24 12/25/24 23:59 23:59 23:59 23:59 Intake Total 1067.0 41.5 480 360 Output Total 3126 1800 1500 1000 Balance -2059.0 -1758.5 -1020 -640 Meds/Results Medications: Active Medications Generic Name Dose Route Start Last Admin Trade Name Freq PRN Reason Stop Dose Admin Acetaminophen 650 mg 12/11/24 07:58 12/18/24 16:00 Acetaminophen 325 Mg Tablet PO 650 mg Q4H PRN Administration Mild Pain (1-3) or Fever Albuterol/Ipratropium 3 ml 12/23/24 07:50 12/23/24 08:11 Ipratropium 0.5 Mg/Albuterol Sulfate 2.5 Mg Ampul.Neb 3 Ml INHALATION 3 ml Q6HRT PRN Administration wheezing Alteplase, Recombinant 2 mg 12/16/24 09:59 12/16/24 16:31 Alteplase 2 Mg Vial (Cathflo) IV PUSH 2 mg ONCE PRN Administration Line Occlusion Amlodipine Besylate 10 mg 12/24/24 09:00 12/25/24 08:39 Amlodipine Besylate 10 Mg Tablet PO 10 mg DAILY SANTIAGO Administration Bisacodyl 10 mg 12/19/24 08:26 12/19/24 09:19 Bisacodyl 10 Mg Suppository RECTAL 10 mg QAM PRN Administration Constipation Dextrose 12.5 gm 12/11/24 11:48 Dextrose 50% 25 Gm/50 Ml Syringe IV PUSH PRN PRN Hypoglycemia Protocol Enoxaparin Sodium 40 mg 12/13/24 09:00 12/25/24 08:39 Enoxaparin 40 Mg/0.4 Ml Syringe SUB-Q 40 mg DAILY SANTIAGO Administration Folic Acid 1 mg 12/24/24 09:00 12/25/24 08:39 Folic Acid 1 Mg Tablet PO 1 mg DAILY SANTIAGO Administration Glucagon 1 mg 12/11/24 11:48 Glucagon For Inj 1 Mg Vial IM PRN PRN Hypoglycemia Protocol Glucose 15 gm 12/11/24 11:48 Glucose Oral Gel 15 Gm Of Glucse In 37.5 Gm Tube PO PRN PRN Hypoglycemia Protocol Hydralazine HCl 10 mg 12/25/24 06:04 12/25/24 06:15 Hydralazine Hcl 20 Mg/Ml Vial IV PUSH 10 mg Q8H PRN Administration HIGH BP SYSTOLIC >150 Hydralazine HCl 10 mg 12/25/24 13:00 12/25/24 10:56 Hydralazine 10 Mg Tablet PO 10 mg QID SANTIAGO Administration Dextrose 1,000 mls @ 100 mls/hr 12/11/24 11:48 Dextrose 5% 1,000 Ml IVPB PRN PRN Hypoglycemia Protocol Dextrose 500 mls @ 75 mls/hr 12/25/24 09:30 12/25/24 10:43 Dextrose 5% In Water IV CONT 75 mls/hr .Q6H40M SANTIAGO Administration Labetalol HCl 20 mg 12/23/24 07:50 12/25/24 14:11 Labetalol Hcl Inj 100 Mg/20 Ml Vial IV PUSH 20 mg Q4H PRN Administration SBP > 160 and HR> 60 -1st choice Metoprolol Tartrate 5 mg 12/24/24 07:57 Metoprolol Tartrate Inj 5 Mg/5 Ml Vial IV PUSH Q4H PRN HR > 120 Metoprolol Tartrate 50 mg 12/24/24 09:00 12/25/24 08:39 Metoprolol Tartrate 50 Mg Tab PO 50 mg Q12HR SANTIAGO Administration Ondansetron HCl 4 mg 12/11/24 04:19 Ondansetron Inj 4 Mg/2 Ml Vial IV PUSH Q6H PRN Nausea And Vomiting Pantoprazole Sodium 40 mg 12/13/24 09:00 12/25/24 08:39 Pantoprazole Sodium Iv 40 Mg Vial IV PUSH 40 mg QAM SANTIAGO Administration Polyethylene Glycol 17 gm 12/16/24 10:22 12/25/24 08:39 Polyethylene Glycol 3350 17 Gm Powd.Pack PO 17 gm QAM SANTIAGO Administration Senna/Docusate Sodium 1 tab 12/16/24 21:00 12/24/24 20:55 Senna/Docusate Sodium Tablet PO 1 tab HS SANTIAGO Administration Sodium Chloride 20 ml 12/12/24 11:00 Central Line Flush IV PUSH PRN PRN after blood draws Sodium Chloride 10 ml 12/12/24 11:00 Central Line Flush IV PUSH PRN PRN with TPN bag changes Sodium Chloride 10 ml 12/13/24 14:00 12/25/24 08:45 Central Line Flush IV PUSH 10 ml Q8HR SANTIAGO Administration Sodium Chloride 20 ml 12/13/24 12:24 12/23/24 05:38 Central Line Flush IV PUSH 20 ml PRN PRN Administration after blood draws Thiamine HCl 100 mg 12/24/24 09:00 12/25/24 08:39 Thiamine Hcl 100 Mg Tablet PO 100 mg QAM SANTIAGO Administration Radiology Results: ITS Impressions Chest CTA 12/10/24 19:15 IMPRESSION: No pulmonary embolism. No aortic dissection. Multifocal pneumonia. Chest CT 12/15/24 16:37 IMPRESSION: Endotracheal tube, left IJ central venous line, NG tube, all in good position. Pulmonary opacities likely representing worsening atypical/viral infection. Small cavitary lesions noted in the right upper lobe. A component of aspiration could be considered given the presence of airway secretions/debris. Trace bilateral pleural effusions. Ascending aortic ectasia. Abdomen X-Ray 12/18/24 14:59 IMPRESSION: 1. Normal bowel gas pattern. Chest X-Ray 12/23/24 06:36 Impression: Patchy alveolar and interstitial disease bilaterally. Correlate for patchy pneumonia, with possible underlying chronic interstitial disease. Stable support line. Modified Barium Swallow 12/23/24 15:07 IMPRESSION: Please refer to speech pathologist report for additional findings ADDENDUM: 12/23/24 1539 MODIFIED ESOPHAGRAM HISTORY: Prolonged intubation TECHNIQUE: Modified barium esophagram was performed by speech pathologist under radiologist fluoroscopic guidance. This was recorded on tape. 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 The DAP for this procedure was 1.7 Gycm2. Fluoroscopy time is 2 minutes 1 second. FINDINGS: Lateral projection of the cervical spine demonstrates age- appropriate degenerative disease. Reduced laryngeal elevation. Laryngeal penetration, which cleared without aspiration. Patient unable to masticate effectively IMPRESSION: Please refer to speech pathologist report for additional findings Labs Labs: Laboratory Results - last 24 hr 12/25/24 12/25/24 05:30 15:15 WBC 7.2 RBC 3.07 L Hgb 10.0 L Hct 31.6 L MCV 102.9 H MCH 32.6 MCHC 31.6 L RDW 13.1 Plt Count 303 MPV 8.9 Sodium 154 H 153 H Potassium 3.6 Chloride 117 H Carbon Dioxide 32 H Anion Gap 5 BUN 41 H Creatinine 1.35 H Estim Creat Clear Calc 52 Estimated GFR 53 L Glucose 107 Calcium 9.3 Magnesium 2.3 Total Bilirubin 0.8 AST 37 ALT 30 Alkaline Phosphatase 90 Total Protein 7.0 Albumin 3.4 L Quality VTE Prophylaxis VTE prophylaxis: pharmacologic ordered Hospitalist [facility] Advance Care Plan I have confirmed that the patient's Advanced Care Plan is present, code status is documented, or surrogate decision maker is listed in patient medical record.: Yes Medication Reconciliation I have utilized all available resources to obtain, update and review the patients current medications (includes all prescriptions, OTC, herbals, cannabis, and nutritional supplements).: Yes
[2024-12-25] MEDS: METOPROLOL TARTRATE INJ 5 MG/5 ML VIAL IV PUSH (18:07)
[2024-12-25] MEDS: SENNA/DOCUSATE SODIUM TABLET 1 TAB PO (20:03)
[2024-12-25 20:31] LABS: Sodium 152 mmol/L (137-145)
[2024-12-26] VITALS (16 sets, daily range): BP systolic 141–176; BP diastolic 82–96; PULSE 72–154; RESP 17–25; TEMP 36.4–36.8; O2SAT 95–98
[2024-12-26] MEDS: hydrALAZINE HCL 20 MG/ML VIAL 10 MG IV PUSH (00:29)
[2024-12-26 00:42] LABS: Sodium 151 mmol/L (137-145)
[2024-12-26] MEDS: METOPROLOL TARTRATE INJ 5 MG/5 ML VIAL IV PUSH ×2 (01:42→07:00)
[2024-12-26] MEDS: HALOPERIDOL LACTATE 5 MG/ML VIAL IV PUSH (04:48)
[2024-12-26 04:49] LABS: Hematocrit 28.9 % (42.0-52.0); Hemoglobin 9.4 g/dL (14.0-18.0); Mean Corpuscular HGB Conc 32.5 g/dl (32-36); Mean Corpuscular Hemoglobin 33.3 pg (26-34); Mean Corpuscular Volume 102.5 fl (80-100); Platelet Count Result 266 k/mm3 (150-375); Red Blood Count 2.82 M/mm3 (4.6-6.20); Red Cell Distribution Width 12.9 % (11.5-14.5); White Blood Count 7.7 K/mm3 (4.5-10.0)
[2024-12-26] MEDS: LORazepam INJ (*CRX) 2 MG/ML VIAL 1 MG IV PUSH (04:49)
[2024-12-26 04:51] LABS: Alanine Aminotransferase 25 U/L (6-50); Albumin Level 3.2 g/dL (3.5-5.1); Alkaline Phosphatase 81 U/L (38-126); Anion Gap 6 mmol/L (4-12); Aspartate Amino Transferase 35 U/L (17-59); Bilirubin,Total 0.8 mg/dL (0.2-1.3); Blood Urea Nitrogen 33 mg/dL (9-20); Calcium 8.4 mg/dL (8.4-10.2); Carbon Dioxide 30 mmol/L (22-30); Chloride 115 mmol/L (98-107); Estimated CRCL calculation 57 ml/min; Estimated Glomerular Filt Rate 60; Glucose 117 mg/dL (65-110); Potassium 3.2 mmol/L (3.4-5.0); Sodium 151 mmol/L (137-145)
[2024-12-26] MEDS: DEXTROSE 5% IN WATER 500 ML 75 ML IV CONT (05:28)
[2024-12-26] MEDS: CENTRAL LINE FLUSH 10 ML IV PUSH ×3 (05:30→23:09)
[2024-12-26] MEDS: PANTOPRAZOLE SODIUM IV 40 MG VIAL IV PUSH (09:41)
[2024-12-26] MEDS: hydrALAZINE 10 MG TABLET PO ×4 (09:42→21:14)
[2024-12-26] MEDS: THIAMINE HCL 100 MG TABLET PO (09:42)
[2024-12-26] MEDS: amLODIPine BESYLATE 10 MG TABLET PO (09:42)
[2024-12-26] MEDS: METOPROLOL TARTRATE 50 MG TAB PO ×2 (09:42→21:13)
[2024-12-26] MEDS: ENOXAPARIN 40 MG/0.4 ML SYRINGE SUB-Q (09:42)
[2024-12-26] MEDS: POTASSIUM CHLORIDE INJ 40 MEQ in SODIUM CHLORIDE 0.9% IV 500 ML 130 MEQ IVPB (09:42)
[2024-12-26] MEDS: FOLIC ACID 1 MG TABLET PO (09:42)
[2024-12-26] MEDS: polyethylene glycoL 3350 17 GM POWD.PACK PO (09:43)
--- NOTE | 2024-12-26 14:16 | PC.NURSE ---
@ 1201- Spoke with patient daughter, Juju, this afternoon regarding current mental state of patient. At the time of conversation the patient would track movement but not respond or demonstrate purposeful movements. Daughter stated her concern that this was not his baseline prior to hospitalization. Relayed family concerns to hospitalist covering plan of care. If no further improvement in mentation or cognitive status will plan for CT in AM. From that point the need for neurology consultation will be discussed. PT/OT worked with patient and transferred him to the recliner via ceiling lift. @1415- Patient more alert and responding somewhat appropriate to questions or statements. Coordination still remains limited.
--- NOTE | 2024-12-26 14:49 | PM.IMPN ---
Progress Note: A&P Assessment and Plan (1) Acute respiratory failure: Code(s): J96.00 - Acute respiratory failure, unspecified whether with hypoxia or hypercapnia Status: Acute Assessment and Plan: 12/12: Acute respiratory failure/impending respiratory failure likely related to altered mentation secondary to alcohol withdrawal, respiratory distress due to pneumonia and influenza A, COPD/emphysema -12/12: Intubated in the ICU -currently on CMV mode of ventilation, peep of 8 and 30% FiO2, saturating 90 91% -continue bronchodilators given history of COPD -Sedated with propofol and fentanyl infusion, maintain RASS of 0 to -2, daily SBT and SAT -12/15: chest x-rays have not been improving so opted to obtain chest CT which is as under -12/16: Consulted pulmonology and patient had bronchoscopy. Culture sent -antibiotic and antiviral as below -sedation holiday was performed and patient placed on 5/8 PSV but patient became tachypneic with respiratory rate in 30s and failed his trial. -12/18 chest x-ray reviewed and appears worse. For further fluids - 12/18 for weaning trial as chest x-ray appears worsened patient has increased oxygen requirement -12/19 sedation holiday was performed patient not a candidate for weaning trial due to tachypnea tachycardia on loading sedation IV Lasix 12/20 chest x-ray pending, sedation holiday ordered. Patient was placed on PSV 5/8 she tolerated for only little bit of time and then became tachypneic with respiratory rate up to 40s. Patient was placed back on CMV and restarted on low-dose sedatives 12/21 sedation holiday was performed will attempt PSV weaning trial again. Lasix IV x1 today 12/22 Lasix IV give 5/8 PSV SBT done for more than 1 hour. RSBI, ABGI and Vitals acceptable. Patient is quite weak but does have a decent cough reflex. Pt awake and following commands. Will extubate and monitor. NPO for now. Bipap PRN at night. If he gets reintubate he will need tracheostomy 12/23 doing well and on nasal cannula. Continue supplemental oxygen. Continue incentive spirometry. Up in chair 12/25: I assumed care today. Patient is currently extubated on and on nasal cannula 3 L. 12/26: Will consider CT scan head tomorrow, if no improvement. -12/15: Repeat CT chest: IMPRESSION: Endotracheal tube, left IJ central venous line, NG tube, all in good position. Pulmonary opacities likely representing worsening atypical/viral infection. Small cavitary lesions noted in the right upper lobe. A component of aspiration could be considered given the presence of airway secretions/debris. Trace bilateral pleural effusions. Ascending aortic ectasia (2) Multifocal pneumonia: Code(s): J18.9 - Pneumonia, unspecified organism Status: Acute Assessment and Plan: 12/10: CT chest PE protocol was negative for PE, but showed bilateral multifocal pneumonia -chest x-ray also showed bilateral multifocal pneumonia -patient tested positive for influenza A 12/10: Blood cultures negative x2 12/12: Sputum cultures are negative 12/12: Nasal MRSA not detected Completed course meropenem Completed doxycycline, Discontinue vancomycin (12/19) Completed course off Tamiflu (3) COPD with emphysema: Code(s): J43.9 - Emphysema, unspecified Status: Acute Assessment and Plan: History of COPD/emphysema See above (4) SVT (supraventricular tachycardia): Code(s): I47.10 - Supraventricular tachycardia, unspecified Status: Acute Assessment and Plan: Patient went into SVT on admission, appreciate cardiology evaluation and recommendation likely related to respiratory distress from pneumonia, influenza, alcohol withdrawal. -patient was started on metoprolol per tube by cardiology (12/13) -currently in sinus rhythm, rate controlled, patient does have intermittent SVTs which is short-lived -continue beta-shannan . Echo Summary 1. Complete two-dimensional, color flow and Doppler transthoracic echocardiogram is performed. 2. Technically difficult study with limited views as patient is supine, confused, and restrained with mittens. 3. Overall does appear to have normal biventricular size and systolic function. 4. There does not appear to be any significant valvular disease. (5) Alcohol withdrawal: Code(s): F10.939 - Alcohol use, unspecified with withdrawal, unspecified Status: Acute Assessment and Plan: Patient does have a history of significant alcohol use -in the IMU he had elevated CIWA score and received multiple doses of Ativan -12/12: patient was confused, tremulous, and was in alcohol withdrawal -continue thiamine and folic acid Precedex weaned off -12/25: Will do as needed Ativan if patient is anxious (6) Electrolyte abnormality: Code(s): E87.8 - Other disorders of electrolyte and fluid balance, not elsewhere classified Status: Acute Assessment and Plan: Potassium replacement ordered (7) MICHELLE (acute kidney injury): Code(s): N17.9 - Acute kidney failure, unspecified Status: Acute Assessment and Plan: 12/17 Increase in creatinine as compared to yesterday. Patient was given IV albumin and IV fluids Discontinued vancomycin Monitor urine output electrolytes and creat (8) Ileus: Code(s): K56.7 - Ileus, unspecified Status: Acute Assessment and Plan: Decreased bowel sounds and slight abdominal distension on exam KUB does showed normal bowel gas pattern at this time Patient was tolerating tube feeding and had bowel movements. Now off of tube feed post extubate Continue MiraLax, add Dulcolax suppository Improved. Monitor (9) Hypertension: Code(s): I10 - Essential (primary) hypertension Status: Acute Assessment and Plan: Increase dose of metoprolol and add Norvasc and hydralazine Plan DVT prophylaxis: Lovenox Stress ulcer prophylaxis: Protonix Nutrition: Diet ordered Code Status: Full code Speech therapy for bedside swallow eval swallow evaluation, incentive spirometry, PT OT Subjective Date/time seen: 12/26/24 14:49 Interval history: No acute events overnight. Pt doesn't follow command and will discuss with family member to understand his baseline. Review of Systems Review of Systems: Cough for 3+ months, patient is a very poor historian and can not really contribute in a meaningful way to history taking. All systems reviewed & are unremarkable except as noted in HPI and below (HPI) ROS unobtainable: Yes unobtainable due to endotracheal tube, unobtainable due to medical condition and unobtainable due to mental status Exam Narrative: General: I alert awake and in no acute distress HEENT:? Pupils equal and reactive, sclera is clear Neck:? Supple Respiratory:? Clear breath sounds bilaterally, decreased at bases Cardiac:? S1-S2 is normal, regular rate and rhythm Abdomen:? Soft, nontender, mildly distended, absent bowel sound Extremities:? No edema, palpable pedal pulses Neuro:? AO x2, moves all extremities and follows command Skin:? Warm and dry, bruising noted on bilateral upper and lower extremity Psych:? Normal speech and affect Const: General: comfortable, no acute distress, well developed, alert, awake, ill appearing acutely and underweight Nutritional Appearance: underweight Orientation/consciousness: patient oriented x3 Other: Patient looks older than stated age, having bouts of cough HENMT: Head: normal to inspection, normocephalic and atraumatic Ears: hearing grossly normal bilaterally Face/Nose/Sinus: normal facial exam Face and sinus: normal facial exam Eyes: General: appearance normal, both eyes and all related structures Pupils: Equal, round and reactive pupils present EOM: EOMs intact bilaterally Neck: Neck: full ROM, no lymphadenopathy and no JVD Thyroid: thyroid normal Lymphatic: no lymphadenopathy noted Resp: Effort & Inspection: normal respiratory effort, able to speak in complete sentences, Actively coughing and tachypneic Auscultation: crackles, wheezes and diminished lung sounds Cardio: Jugular venous distension: no JVD Rate: tachycardic Rhythm: abnormal rhythm irregularly irregular Heart sounds: S1 normal heart sound present and S2 normal heart sound present GI: Inspection: normal to inspection : General: Yes deferred Skin: Rashes: no rashes Wounds: no wounds Neuro: General: patient oriented x3 and CN's II-XI intact bilaterally Cranial nerves: Yes CN's II-XII intact bilaterally and Yes Equal, round and reactive pupils present Cognition (Neuro): normal cognition Speech: normal speech Gait exam (Neuro): Normal gait present Motor exam (neuro): 5/5 motor strength present throughout Extrem: General: normal to inspection, full ROM, no joint enlargement and no pedal edema Objective Data Vital Signs Vital Signs: Vital Signs - 24 hr 12/25/24 16:00 12/25/24 17:30 12/25/24 18:07 Temperature 98.7 F Pulse Rate 89 88 151 H Respiratory Rate 17 Blood Pressure 149/90 H Pulse Oximetry 95 Oxygen Delivery Oxygen Flow Rate 12/25/24 20:00 12/25/24 20:00 12/25/24 20:00 Temperature 98.4 F Pulse Rate 87 88 93 Respiratory Rate 28 H 28 H Blood Pressure 154/108 H Pulse Oximetry 94 95 Oxygen Delivery Nasal Cannula Oxygen Flow Rate 2 12/25/24 20:03 12/25/24 20:35 12/25/24 22:35 Temperature Pulse Rate 86 77 Respiratory Rate 18 Blood Pressure 182/108 H Pulse Oximetry 97 95 Oxygen Delivery Nasal Cannula Oxygen Flow Rate 2 12/25/24 22:37 12/25/24 23:00 12/26/24 00:00 Temperature 98.3 F Pulse Rate 74 72 81 Respiratory Rate 21 H 20 Blood Pressure 164/95 H 169/93 H Pulse Oximetry 98 95 Oxygen Delivery Oxygen Flow Rate 12/26/24 00:00 12/26/24 00:31 12/26/24 01:13 Temperature Pulse Rate 75 76 78 Respiratory Rate 22 H 18 Blood Pressure 176/95 H 147/82 H Pulse Oximetry 95 95 Oxygen Delivery Oxygen Flow Rate 12/26/24 01:42 12/26/24 02:03 12/26/24 04:00 Temperature 98.3 F Pulse Rate 145 H 73 84 Respiratory Rate 19 25 H Blood Pressure 165/96 H 167/93 H Pulse Oximetry 96 97 Oxygen Delivery Oxygen Flow Rate 12/26/24 04:00 12/26/24 07:00 12/26/24 08:00 Temperature 97.5 F L Pulse Rate 82 154 H 78 Respiratory Rate 22 H Blood Pressure 157/96 H Pulse Oximetry 96 Oxygen Delivery Oxygen Flow Rate 12/26/24 08:00 12/26/24 08:00 12/26/24 08:25 Temperature Pulse Rate 74 83 Respiratory Rate 18 Blood Pressure Pulse Oximetry 96 96 Oxygen Delivery Nasal Cannula Nasal Cannula Oxygen Flow Rate 2 2 12/26/24 09:42 12/26/24 10:40 12/26/24 12:00 Temperature Pulse Rate 83 73 Respiratory Rate Blood Pressure Pulse Oximetry Oxygen Delivery Nasal Cannula Oxygen Flow Rate 2 12/26/24 12:00 Temperature Pulse Rate 72 Respiratory Rate 17 Blood Pressure Pulse Oximetry 97 Oxygen Delivery Oxygen Flow Rate Intake/Output Intake/Output: Intake & Output 12/23/24 12/24/24 12/25/24 12/26/24 23:59 23:59 23:59 23:59 Intake Total 41.5 480 1977.5 1377.5 Output Total 1800 1500 1950 850 Balance -1758.5 -1020 27.5 527.5 Meds/Results Medications: Active Medications Generic Name Dose Route Start Last Admin Trade Name Freq PRN Reason Stop Dose Admin Acetaminophen 650 mg 12/11/24 07:58 12/18/24 16:00 Acetaminophen 325 Mg Tablet PO 650 mg Q4H PRN Administration Mild Pain (1-3) or Fever Albuterol/Ipratropium 3 ml 12/23/24 07:50 12/23/24 08:11 Ipratropium 0.5 Mg/Albuterol Sulfate 2.5 Mg Ampul.Neb 3 Ml INHALATION 3 ml Q6HRT PRN Administration wheezing Alteplase, Recombinant 2 mg 12/16/24 09:59 12/16/24 16:31 Alteplase 2 Mg Vial (Cathflo) IV PUSH 2 mg ONCE PRN Administration Line Occlusion Amlodipine Besylate 10 mg 12/24/24 09:00 12/26/24 09:42 Amlodipine Besylate 10 Mg Tablet PO 10 mg DAILY SANTIAGO Administration Bisacodyl 10 mg 12/19/24 08:26 12/19/24 09:19 Bisacodyl 10 Mg Suppository RECTAL 10 mg QAM PRN Administration Constipation Dextrose 12.5 gm 12/11/24 11:48 Dextrose 50% 25 Gm/50 Ml Syringe IV PUSH PRN PRN Hypoglycemia Protocol Enoxaparin Sodium 40 mg 12/13/24 09:00 12/26/24 09:42 Enoxaparin 40 Mg/0.4 Ml Syringe SUB-Q 40 mg DAILY SANTIAGO Administration Folic Acid 1 mg 12/24/24 09:00 12/26/24 09:42 Folic Acid 1 Mg Tablet PO 1 mg DAILY SANTIAGO Administration Glucagon 1 mg 12/11/24 11:48 Glucagon For Inj 1 Mg Vial IM PRN PRN Hypoglycemia Protocol Glucose 15 gm 12/11/24 11:48 Glucose Oral Gel 15 Gm Of Glucse In 37.5 Gm Tube PO PRN PRN Hypoglycemia Protocol Hydralazine HCl 10 mg 12/25/24 06:04 12/26/24 00:29 Hydralazine Hcl 20 Mg/Ml Vial IV PUSH 10 mg Q8H PRN Administration HIGH BP SYSTOLIC >150 Hydralazine HCl 10 mg 12/25/24 13:00 12/26/24 13:31 Hydralazine 10 Mg Tablet PO 10 mg QID SANTIAGO Administration Dextrose 1,000 mls @ 100 mls/hr 12/11/24 11:48 Dextrose 5% 1,000 Ml IVPB PRN PRN Hypoglycemia Protocol Dextrose 500 mls @ 100 mls/hr 12/25/24 09:30 12/26/24 09:42 Dextrose 5% In Water IV CONT 100 mls/hr .Q5H SANTIAGO Infusion Labetalol HCl 20 mg 12/23/24 07:50 12/25/24 22:37 Labetalol Hcl Inj 100 Mg/20 Ml Vial IV PUSH 20 mg Q4H PRN Administration SBP > 160 and HR> 60 -1st choice Metoprolol Tartrate 5 mg 12/24/24 07:57 12/26/24 07:00 Metoprolol Tartrate Inj 5 Mg/5 Ml Vial IV PUSH 5 mg Q4H PRN Administration HR > 120 Metoprolol Tartrate 50 mg 12/24/24 09:00 12/26/24 09:42 Metoprolol Tartrate 50 Mg Tab PO 50 mg Q12HR SANTIAGO Administration Ondansetron HCl 4 mg 12/11/24 04:19 Ondansetron Inj 4 Mg/2 Ml Vial IV PUSH Q6H PRN Nausea And Vomiting Pantoprazole Sodium 40 mg 12/13/24 09:00 12/26/24 09:41 Pantoprazole Sodium Iv 40 Mg Vial IV PUSH 40 mg QAM SANTIAGO Administration Polyethylene Glycol 17 gm 12/16/24 10:22 12/26/24 09:43 Polyethylene Glycol 3350 17 Gm Powd.Pack PO 17 gm QAM SANTIAGO Administration Senna/Docusate Sodium 1 tab 12/16/24 21:00 12/25/24 20:03 Senna/Docusate Sodium Tablet PO 1 tab HS SANTIAGO Administration Sodium Chloride 20 ml 12/12/24 11:00 Central Line Flush IV PUSH PRN PRN after blood draws Sodium Chloride 10 ml 12/12/24 11:00 Central Line Flush IV PUSH PRN PRN with TPN bag changes Sodium Chloride 10 ml 12/13/24 14:00 12/26/24 13:31 Central Line Flush IV PUSH 10 ml Q8HR SANTIAGO Administration Sodium Chloride 20 ml 12/13/24 12:24 12/23/24 05:38 Central Line Flush IV PUSH 20 ml PRN PRN Administration after blood draws Thiamine HCl 100 mg 12/24/24 09:00 12/26/24 09:42 Thiamine Hcl 100 Mg Tablet PO 100 mg QAM SANTIAGO Administration Radiology Results: ITS Impressions Chest CTA 12/10/24 19:15 IMPRESSION: No pulmonary embolism. No aortic dissection. Multifocal pneumonia. Chest CT 12/15/24 16:37 IMPRESSION: Endotracheal tube, left IJ central venous line, NG tube, all in good position. Pulmonary opacities likely representing worsening atypical/viral infection. Small cavitary lesions noted in the right upper lobe. A component of aspiration could be considered given the presence of airway secretions/debris. Trace bilateral pleural effusions. Ascending aortic ectasia. Abdomen X-Ray 12/18/24 14:59 IMPRESSION: 1. Normal bowel gas pattern. Chest X-Ray 12/23/24 06:36 Impression: Patchy alveolar and interstitial disease bilaterally. Correlate for patchy pneumonia, with possible underlying chronic interstitial disease. Stable support line. Modified Barium Swallow 12/23/24 15:07 IMPRESSION: Please refer to speech pathologist report for additional findings ADDENDUM: 12/23/24 1539 MODIFIED ESOPHAGRAM HISTORY: Prolonged intubation TECHNIQUE: Modified barium esophagram was performed by speech pathologist under radiologist fluoroscopic guidance. This was recorded on tape. The exam was reviewed on 12/23/2024 15:07 DEPUTY K 9. The DAP for this procedure was 1.7 Gycm2. Fluoroscopy time is 2 minutes 1 second. FINDINGS: Lateral projection of the cervical spine demonstrates age-appropriate degenerative disease. Reduced laryngeal elevation. Laryngeal penetration, which cleared without aspiration. Patient unable to masticate effectively IMPRESSION: Please refer to speech pathologist report for additional findings Labs Labs: Laboratory Results - last 24 hr 12/25/24 12/25/24 12/26/24 15:15 20:13 00:28 WBC RBC Hgb Hct MCV MCH MCHC RDW Plt Count MPV Sodium 153 H 152 H 151 H Potassium Chloride Carbon Dioxide Anion Gap BUN Creatinine Estim Creat Clear Calc Estimated GFR Glucose Calcium Total Bilirubin AST ALT Alkaline Phosphatase Total Protein Albumin 12/26/24 04:32 WBC 7.7 RBC 2.82 L Hgb 9.4 L Hct 28.9 L MCV 102.5 H MCH 33.3 MCHC 32.5 RDW 12.9 Plt Count 266 MPV 9.0 Sodium 151 H Potassium 3.2 L Chloride 115 H Carbon Dioxide 30 Anion Gap 6 BUN 33 H Creatinine 1.22 Estim Creat Clear Calc 57 Estimated GFR 60 Glucose 117 H Calcium 8.4 Total Bilirubin 0.8 AST 35 ALT 25 Alkaline Phosphatase 81 Total Protein 7.0 Albumin 3.2 L Quality VTE Prophylaxis VTE prophylaxis: pharmacologic ordered Hospitalist [facility] Advance Care Plan I have confirmed that the patient's Advanced Care Plan is present, code status is documented, or surrogate decision maker is listed in patient medical record.: Yes Medication Reconciliation I have utilized all available resources to obtain, update and review the patients current medications (includes all prescriptions, OTC, herbals, cannabis, and nutritional supplements).: Yes
[2024-12-26] MEDS: DEXTROSE 5% IN WATER 500 ML 100 ML IV CONT ×2 (15:46→21:21)
--- NOTE | 2024-12-26 17:26 | PC.NURSE ---
Patient arrived via chair without issue on 2L NC with RN and CCT at side. Report received from NEIL Luciano.
--- NOTE | 2024-12-26 17:54 | PC.NURSE ---
Patient transferred to room 231 @ 1745. Report given to NEIL Urias. All appropriate documentation and equipment sent with patient as well as personal belongings. Receiving nurse to update family via phone on pt location.
--- NOTE | 2024-12-26 18:19 | PC.NURSE ---
Updated daughter, Juju, on patient status and plan of care.
[2024-12-26] MEDS: SENNA/DOCUSATE SODIUM TABLET 1 TAB PO (21:13)
[2024-12-27] VITALS (20 sets, daily range): BP systolic 131–170; BP diastolic 83–99; PULSE 65–152; RESP 18–22; TEMP 36–36.9; O2SAT 92–97
[2024-12-27] MEDS: METOPROLOL TARTRATE INJ 5 MG/5 ML VIAL IV PUSH ×2 (01:24→06:01)
[2024-12-27] MEDS: hydrALAZINE HCL 20 MG/ML VIAL 10 MG IV PUSH (05:01)
[2024-12-27 05:18] LABS: Hematocrit 27.1 % (42.0-52.0); Hemoglobin 8.8 g/dL (14.0-18.0); Mean Corpuscular HGB Conc 32.5 g/dl (32-36); Mean Corpuscular Volume 101.5 fl (80-100); Mean Platelet Volume 8.9 fl (7.4-10.4); Platelet Count Result 242 k/mm3 (150-375); Red Blood Count 2.67 M/mm3 (4.6-6.20); Red Cell Distribution Width 12.7 % (11.5-14.5); White Blood Count 10.4 K/mm3 (4.5-10.0)
[2024-12-27 05:33] LABS: Alanine Aminotransferase 24 U/L (6-50); Albumin Level 3.1 g/dL (3.5-5.1); Alkaline Phosphatase 82 U/L (38-126); Anion Gap 7 mmol/L (4-12); Aspartate Amino Transferase 31 U/L (17-59); Bilirubin,Total 0.8 mg/dL (0.2-1.3); Blood Urea Nitrogen 24 mg/dL (9-20); Calcium 8.5 mg/dL (8.4-10.2); Carbon Dioxide 28 mmol/L (22-30); Chloride 112 mmol/L (98-107); Estimated CRCL calculation 61 ml/min; Estimated Glomerular Filt Rate > 60; Glucose 107 mg/dL (65-110); Magnesium 1.9 mg/dL (1.6-2.3); Potassium 3.3 mmol/L (3.4-5.0); Sodium 147 mmol/L (137-145)
[2024-12-27] MEDS: CENTRAL LINE FLUSH 10 ML IV PUSH ×2 (06:01→13:13)
[2024-12-27 06:10] LABS: Hepatitis B Surface Antigen Negative (Negative)
[2024-12-27 06:16] LABS: HAV RESULT Negative (Negative); Hepatitis B Core IgM Result Negative (Negative)
[2024-12-27 06:27] LABS: Hepatitis C Virus Antibody Negative (Negative)
[2024-12-27 07:20] LABS: Folic Acid > 20.0 ng/mL (2.76->20)
[2024-12-27] MEDS: PANTOPRAZOLE SODIUM IV 40 MG VIAL IV PUSH (08:17)
[2024-12-27] MEDS: MAGNESIUM SULF 1 GM/D5W 100 ML 1 GM/100 ML BAG IVPB (08:17)
[2024-12-27] MEDS: ENOXAPARIN 40 MG/0.4 ML SYRINGE SUB-Q (08:18)
[2024-12-27] MEDS: POTASSIUM CHLORIDE INJ 40 MEQ in SODIUM CHLORIDE 0.9% IV 500 ML 130 MEQ IVPB (08:18)
[2024-12-27] MEDS: polyethylene glycoL 3350 17 GM POWD.PACK PO (08:19)
[2024-12-27] MEDS: hydrALAZINE 10 MG TABLET PO ×4 (08:23→20:58)
[2024-12-27] MEDS: METOPROLOL TARTRATE 50 MG TAB PO ×2 (08:23→20:56)
[2024-12-27] MEDS: THIAMINE HCL 100 MG TABLET PO (08:24)
[2024-12-27] MEDS: amLODIPine BESYLATE 10 MG TABLET PO (08:24)
[2024-12-27] MEDS: FOLIC ACID 1 MG TABLET PO (08:24)
--- NOTE | 2024-12-27 09:16 | PCNFU ---
Nutrition Follow-Up Complete: Suboptimal Nutrition as related to mechanical ventilation as evidenced by NPO. Meet estimated nutritional needs. - Progressing with PO intake Goal: Pt current nutrition is Minced & moist L5, heart healthy, Nutritional ice cream BID (270 kcal, 9 g protein) Nutrition recommendation: No new nutrition recommendations. Feeding assistance as needed. Continue current orders. Last recorded weight is 73.7 kg. Bowel Motility: Last BM 12/23/24 Labs Reviewed: Hgb 8.8, Hct 27.1, Alb 3.1, Na 147, K+ 3.3, BUN 24 Meds Noted: Folic acid, protonix, miralax Skin: No skin issues Additional Notes: Appetite improving, 15-75 % yesterday. Continue with feeding assistance as needed. Agree with current nutrition orders. Will monitor weight, labs, skin, diet orders, meds every Monday and Monday.
[2024-12-27] MEDS: DEXTROSE 5% IN WATER 500 ML 100 ML IV CONT ×2 (13:12→18:02)
[2024-12-27 13:22] LABS: Rapid Plasma Reagin Non-Reactive (NonReactive)
--- NOTE | 2024-12-27 13:50 | P.PNIM_ITS ---
Progress Note: A&P Assessment and Plan (1) Acute respiratory failure: Code(s): J96.00 - Acute respiratory failure, unspecified whether with hypoxia or hypercapnia Status: Acute Assessment and Plan: 12/12: Acute respiratory failure/impending respiratory failure likely related to altered mentation secondary to alcohol withdrawal, respiratory distress due to pneumonia and influenza A, COPD/emphysema -12/12: Intubated in the ICU -currently on CMV mode of ventilation, peep of 8 and 30% FiO2, saturating 90 91% -continue bronchodilators given history of COPD -Sedated with propofol and fentanyl infusion, maintain RASS of 0 to -2, daily SBT and SAT -12/15: chest x-rays have not been improving so opted to obtain chest CT which is as under -12/16: Consulted pulmonology and patient had bronchoscopy. Culture sent -antibiotic and antiviral as below -sedation holiday was performed and patient placed on 5/8 PSV but patient became tachypneic with respiratory rate in 30s and failed his trial. -12/18 chest x-ray reviewed and appears worse. For further fluids - 12/18 for weaning trial as chest x-ray appears worsened patient has increased oxygen requirement -12/19 sedation holiday was performed patient not a candidate for weaning trial due to tachypnea tachycardia on loading sedation IV Lasix 12/20 chest x-ray pending, sedation holiday ordered. Patient was placed on PSV 5/8 she tolerated for only little bit of time and then became tachypneic with respiratory rate up to 40s. Patient was placed back on CMV and restarted on low-dose sedatives 12/21 sedation holiday was performed will attempt PSV weaning trial again. Lasix IV x1 today 12/22 Lasix IV give 5/8 PSV SBT done for more than 1 hour. RSBI, ABGI and Vitals acceptable. Patient is quite weak but does have a decent cough reflex. Pt awake and fo llowing commands. Will extubate and monitor. NPO for now. Bipap PRN at night. If he gets reintubate he will need tracheostomy 12/23 doing well and on nasal cannula. Continue supplemental oxygen. Continue incentive spirometry. Up in chair 12/25: I assumed care today. Patient is currently extubated on and on nasal cannula 3 L. 12/26: Will consider CT scan head tomorrow, if no improvement. -12/15: Repeat CT chest: IMPRESSION: Endotracheal tube, left IJ central venous line, NG tube, all in good position. Pulmonary opacities likely representing worsening atypical/viral infection. Small cavitary lesions noted in the right upper lobe. A component of aspiration could be considered given the presence of airway secretions/debris. Trace bilateral pleural effusions. Ascending aortic ectasia (2) Multifocal pneumonia: Code(s): J18.9 - Pneumonia, unspecified organism Status: Acute Assessment and Plan: 12/10: CT chest PE protocol was negative for PE, but showed bilateral multifocal pneumonia -chest x-ray also showed bilateral multifocal pneumonia -patient tested positive for influenza A 12/10: Blood cultures negative x2 12/12: Sputum cultures are negative 12/12: Nasal MRSA not detected Completed course meropenem Completed doxycycline, Discontinue vancomycin (12/19) Completed course off Tamiflu (3) COPD with emphysema: Code(s): J43.9 - Emphysema, unspecified Status: Acute Assessment and Plan: History of COPD/emphysema See above (4) SVT (supraventricular tachycardia): Code(s): I47.10 - Supraventricular tachycardia, unspecified Status: Acute Assessment and Plan: Patient went into SVT on admission, appreciate cardiology evaluation and recommendation likely related to respiratory distress from pneumonia, influenza, alcohol withdrawal. -patient was started on metoprolol per tube by cardiology (12/13) -currently in sinus rhythm, rate controlled, patient does have intermittent SVTs which is short-lived -continue beta-shannan . Echo Summary 1. Complete two-dimensional, color flow and Doppler transthoracic echocardiogram is performed. 2. Technically difficult study with limited views as patient is supine, confused, and restrained with mittens. 3. Overall does appear to have normal biventricular size and systolic function. 4. There does not appear to be any significant valvular disease. (5) Alcohol withdrawal: Code(s): F10.939 - Alcohol use, unspecified with withdrawal, unspecified Status: Acute Assessment and Plan: Patient does have a history of significant alcohol use -in the IMU he had elevated CIWA score and received multiple doses of Ativan -12/12: patient was confused, tremulous, and was in alcohol withdrawal -continue thiamine and folic acid Precedex weaned off -12/25: Will do as needed Ativan if patient is anxious (6) Electrolyte abnormality: Code(s): E87.8 - Other disorders of electrolyte and fluid balance, not elsewhere classified Status: Acute Assessment and Plan: Potassium replacement ordered (7) MICHELLE (acute kidney injury): Code(s): N17.9 - Acute kidney failure, unspecified Status: Acute Assessment and Plan: 12/17 Increase in creatinine as compared to yesterday. Patient was given IV albumin and IV fluids Discontinued vancomycin Monitor urine output electrolytes and creat (8) Ileus: Code(s): K56.7 - Ileus, unspecified Status: Acute Assessment and Plan: Decreased bowel sounds and slight abdominal distension on exam KUB does showed normal bowel gas pattern at this time Patient was tolerating tube feeding and had bowel movements. Now off of tube feed post extubate Continue MiraLax, add Dulcolax suppository Improved. Monitor (9) Hypertension: Code(s): I10 - Essential (primary) hypertension Status: Acute Assessment and Plan: Increase dose of metoprolol and add Norvasc and hydralazine (10) Metabolic encephalopathy: Code(s): G93.41 - Metabolic encephalopathy Status: Acute Assessment and Plan: Normal TSH and B12, RPR negative Order CT scan Plan DVT prophylaxis: Lovenox Stress ulcer prophylaxis: Protonix Nutrition: Diet ordered Code Status: Full code Speech therapy for bedside swallow eval swallow evaluation, incentive spirometry, PT OT Subjective Date/time seen: 12/27/24 13:50 Interval history: Patient is oriented but still week. Discussed with his daughter Juju. She reports patient is heavy smoker 3-4 pack a day and drinks 12 pack beer daily. She denies any PMHx of cardiac or CVA or hospitalization due to alcoholism. Order CT Brain. Review of Systems Review of Systems: Cough for 3+ months, patient is a very poor historian and can not really contribute in a meaningful way to history taking. All systems reviewed & are unremarkable except as noted in HPI and below (HPI) ROS unobtainable: Yes unobtainable due to endotracheal tube, unobtainable due to medical condition and unobtainable due to mental status Exam Narrative: General: I alert awake and in no acute distress HEENT:? Pupils equal and reactive, sclera is clear Neck:? Supple Respiratory:? Clear breath sounds bilaterally, decreased at bases Cardiac:? S1-S2 is normal, regular rate and rhythm Abdomen:? Soft, nontender, mildly distended, absent bowel sound Extremities:? No edema, palpable pedal pulses Neuro:? AO x2, moves all extremities and follows command Skin:? Warm and dry, bruising noted on bilateral upper and lower extremity Psych:? Normal speech and affect Const: General: comfortable, no acute distress, well developed, alert, awake, ill appearing acutely and underweight Nutritional Appearance: underweight Orientation/consciousness: patient oriented x3 Other: Patient looks older than stated age, having bouts of cough HENMT: Head: normal to inspection, normocephalic and atraumatic Ears: hearing grossly normal bilaterally Face/Nose/Sinus: normal facial exam Face and sinus: normal facial exam Eyes: General: appearance normal, both eyes and all related structures Pupils: Equal, round and reactive pupils present EOM: EOMs intact bilaterally Neck: Neck: full ROM, no lymphadenopathy and no JVD Thyroid: thyroid normal Lymphatic: no lymphadenopathy noted Resp: Effort & Inspection: normal respiratory effort, able to speak in complete sentences, Actively coughing and tachypneic Auscultation: crackles, wheezes and diminished lung sounds Cardio: Jugular venous distension: no JVD Rate: tachycardic Rhythm: abnormal rhythm irregularly irregular Heart sounds: S1 normal heart sound present and S2 normal heart sound present GI: Inspection: normal to inspection : General: Yes deferred Skin: Rashes: no rashes Wounds: no wounds Neuro: General: patient oriented x3 and CN's II-XI intact bilaterally Cranial nerves: Yes CN's II-XII intact bilaterally and Yes Equal, round and reactive pupils present Cognition (Neuro): normal cognition Speech: normal speech Gait exam (Neuro): Normal gait present Motor exam (neuro): 5/5 motor strength present throughout Extrem: General: normal to inspection, full ROM, no joint enlargement and no pedal edema Objective Data Vital Signs Vital Signs: Vital Signs - 24 hr 12/26/24 16:00 12/26/24 16:00 12/26/24 19:45 Temperature 97.9 F 98.3 F Pulse Rate 77 76 87 Respiratory Rate 20 19 Blood Pressure 141/89 H 155/89 H Pulse Oximetry 95 98 Oxygen Delivery Oxygen Flow Rate 12/26/24 20:00 12/26/24 20:00 12/26/24 21:13 Temperature Pulse Rate 95 87 Respiratory Rate Blood Pressure Pulse Oximetry 96 Oxygen Delivery Nasal Cannula Oxygen Flow Rate 2 12/26/24 22:39 12/27/24 00:00 12/27/24 00:00 Temperature 97.7 F Pulse Rate 101 H 68 152 H Respiratory Rate 18 Blood Pressure 135/95 H Pulse Oximetry Oxygen Delivery Oxygen Flow Rate 12/27/24 01:24 12/27/24 03:48 12/27/24 04:00 Temperature 97.8 F Pulse Rate 152 H 95 93 Respiratory Rate 19 Blood Pressure 170/84 H Pulse Oximetry 94 Oxygen Delivery Oxygen Flow Rate 12/27/24 04:49 12/27/24 05:12 12/27/24 05:59 Temperature Pulse Rate 124 H 150 H Respiratory Rate 22 H Blood Pressure 164/99 H 135/87 Pulse Oximetry 93 93 Oxygen Delivery Nasal Cannula Oxygen Flow Rate 2 12/27/24 06:01 12/27/24 06:30 12/27/24 08:00 Temperature Pulse Rate 150 H 85 85 Respiratory Rate 20 Blood Pressure Pulse Oximetry 95 Oxygen Delivery Nasal Cannula Oxygen Flow Rate 2 12/27/24 08:23 12/27/24 08:26 12/27/24 10:12 Temperature 97.8 F Pulse Rate 88 87 Respiratory Rate 20 Blood Pressure 147/97 H Pulse Oximetry 95 95 Oxygen Delivery Nasal Cannula Oxygen Flow Rate 2 12/27/24 12:02 Temperature 98.5 F Pulse Rate 67 Respiratory Rate 20 Blood Pressure 131/83 Pulse Oximetry 97 Oxygen Delivery Oxygen Flow Rate Intake/Output Intake/Output: Intake & Output 12/24/24 12/25/24 12/26/24 12/27/24 23:59 23:59 23:59 23:59 Intake Total 480 1977.5 2300.0 860 Output Total 1500 1950 1400 850 Balance -1020 27.5 900.0 10 Meds/Results Medications: Active Medications Generic Name Dose Route Start Last Admin Trade Name Freq PRN Reason Stop Dose Admin Acetaminophen 650 mg 12/11/24 07:58 12/18/24 16:00 Acetaminophen 325 Mg Tablet PO 650 mg Q4H PRN Administration Mild Pain (1-3) or Fever Albuterol/Ipratropium 3 ml 12/23/24 07:50 12/23/24 08:11 Ipratropium 0.5 Mg/Albuterol Sulfate 2.5 Mg Ampul.Neb 3 Ml INHALATION 3 ml Q6HRT PRN Administration wheezing Alteplase, Recombinant 2 mg 12/16/24 09:59 12/16/24 16:31 Alteplase 2 Mg Vial (Cathflo) IV PUSH 2 mg ONCE PRN Administration Line Occlusion Amlodipine Besylate 10 mg 12/24/24 09:00 12/27/24 08:24 Amlodipine Besylate 10 Mg Tablet PO 10 mg DAILY SANTIAGO Administration Bisacodyl 10 mg 12/19/24 08:26 12/19/24 09:19 Bisacodyl 10 Mg Suppository RECTAL 10 mg QAM PRN Administration Constipation Dextrose 12.5 gm 12/11/24 11:48 Dextrose 50% 25 Gm/50 Ml Syringe IV PUSH PRN PRN Hypoglycemia Protocol Enoxaparin Sodium 40 mg 12/13/24 09:00 12/27/24 08:18 Enoxaparin 40 Mg/0.4 Ml Syringe SUB-Q 40 mg DAILY SANTIAGO Administration Folic Acid 1 mg 12/24/24 09:00 12/27/24 08:24 Folic Acid 1 Mg Tablet PO 1 mg DAILY SANTIAGO Administration Glucagon 1 mg 12/11/24 11:48 Glucagon For Inj 1 Mg Vial IM PRN PRN Hypoglycemia Protocol Glucose 15 gm 12/11/24 11:48 Glucose Oral Gel 15 Gm Of Glucse In 37.5 Gm Tube PO PRN PRN Hypoglycemia Protocol Hydralazine HCl 10 mg 12/25/24 06:04 12/27/24 05:01 Hydralazine Hcl 20 Mg/Ml Vial IV PUSH 10 mg Q8H PRN Administration HIGH BP SYSTOLIC >150 Hydralazine HCl 10 mg 12/25/24 13:00 12/27/24 13:13 Hydralazine 10 Mg Tablet PO 10 mg QID SANTIAGO Administration Dextrose 1,000 mls @ 100 mls/hr 12/11/24 11:48 Dextrose 5% 1,000 Ml IVPB PRN PRN Hypoglycemia Protocol Dextrose 500 mls @ 100 mls/hr 12/25/24 09:30 12/27/24 13:12 Dextrose 5% In Water IV CONT 100 mls/hr .Q5H SANTIAGO Administration Labetalol HCl 20 mg 12/23/24 07:50 12/25/24 22:37 Labetalol Hcl Inj 100 Mg/20 Ml Vial IV PUSH 20 mg Q4H PRN Administration SBP > 160 and HR> 60 -1st choice Metoprolol Tartrate 5 mg 12/24/24 07:57 12/27/24 06:01 Metoprolol Tartrate Inj 5 Mg/5 Ml Vial IV PUSH 5 mg Q4H PRN Administration HR > 120 Metoprolol Tartrate 50 mg 12/24/24 09:00 12/27/24 08:23 Metoprolol Tartrate 50 Mg Tab PO 50 mg Q12HR SANTIAGO Administration Ondansetron HCl 4 mg 12/11/24 04:19 Ondansetron Inj 4 Mg/2 Ml Vial IV PUSH Q6H PRN Nausea And Vomiting Pantoprazole Sodium 40 mg 12/13/24 09:00 12/27/24 08:17 Pantoprazole Sodium Iv 40 Mg Vial IV PUSH 40 mg QAM SANTIAGO Administration Polyethylene Glycol 17 gm 12/16/24 10:22 12/27/24 08:19 Polyethylene Glycol 3350 17 Gm Powd.Pack PO 17 gm QAM SANTIAGO Administration Senna/Docusate Sodium 1 tab 12/16/24 21:00 12/26/24 21:13 Senna/Docusate Sodium Tablet PO 1 tab HS SANTIAGO Administration Sodium Chloride 20 ml 12/12/24 11:00 Central Line Flush IV PUSH PRN PRN after blood draws Sodium Chloride 10 ml 12/12/24 11:00 Central Line Flush IV PUSH PRN PRN with TPN bag changes Sodium Chloride 10 ml 12/13/24 14:00 12/27/24 13:13 Central Line Flush IV PUSH 10 ml Q8HR SANTIAGO Administration Sodium Chloride 20 ml 12/13/24 12:24 12/23/24 05:38 Central Line Flush IV PUSH 20 ml PRN PRN Administration after blood draws Thiamine HCl 100 mg 12/24/24 09:00 12/27/24 08:24 Thiamine Hcl 100 Mg Tablet PO 100 mg QAM SANTIAGO Administration Radiology Results: ITS Impressions Chest CTA 12/10/24 19:15 IMPRESSION: No pulmonary embolism. No aortic dissection. Multifocal pneumonia. Chest CT 12/15/24 16:37 IMPRESSION: Endotracheal tube, left IJ central venous line, NG tube, all in good position. Pulmonary opacities likely representing worsening atypical/viral infection. Small cavitary lesions noted in the right upper lobe. A component of aspiration could be considered given the presence of airway secretions/debris. Trace bilateral pleural effusions. Ascending aortic ectasia. Abdomen X-Ray 12/18/24 14:59 IMPRESSION: 1. Normal bowel gas pattern. Chest X-Ray 12/23/24 06:36 Impression: Patchy alveolar and interstitial disease bilaterally. Correlate for patchy pneumonia, with possible underlying chronic interstitial disease. Stable support line. Modified Barium Swallow 12/23/24 15:07 IMPRESSION: Please refer to speech pathologist report for additional findings ADDENDUM: 12/23/24 1539 MODIFIED ESOPHAGRAM HISTORY: Prolonged intubation TECHNIQUE: Modified barium esophagram was performed by speech pathologist under radiologist fluoroscopic guidance. This was recorded on tape. The exam was reviewed on 12/23/2024 15:07 [employer]. The DAP for this procedure was 1.7 Gycm2. Fluoroscopy time is 2 minutes 1 second. FINDINGS: Lateral projection of the cervical spine demonstrates age- appropriate degenerative disease. Reduced laryngeal elevation. Laryngeal penetration, which cleared without aspiration. Patient unable to masticate effectively IMPRESSION: Please refer to speech pathologist report for additional findings Labs Labs: Laboratory Results - last 24 hr 12/27/24 04:59 WBC 10.4 H RBC 2.67 L Hgb 8.8 L Hct 27.1 L MCV 101.5 H MCH 33.0 MCHC 32.5 RDW 12.7 Plt Count 242 MPV 8.9 Sodium 147 H Potassium 3.3 L Chloride 112 H Carbon Dioxide 28 Anion Gap 7 BUN 24 H Creatinine 1.15 Estim Creat Clear Calc 61 Estimated GFR > 60 Glucose 107 Calcium 8.5 Magnesium 1.9 Total Bilirubin 0.8 AST 31 ALT 24 Alkaline Phosphatase 82 Total Protein 6.0 L Albumin 3.1 L Vitamin B12 758.0 Folate > 20.0 H TSH (Reflex) 3.200 RPR Non-reactive Hepatitis A IgM Ab Negative Hep Bs Antigen Negative Hep B Core IgM Ab Negative Hepatitis C Ab Screen Negative Quality VTE Prophylaxis VTE prophylaxis: pharmacologic ordered Hospitalist [facility] Advance Care Plan I have confirmed that the patient's Advanced Care Plan is present, code status is documented, or surrogate decision maker is listed in patient medical record.: Yes Medication Reconciliation I have utilized all available resources to obtain, update and review the patients current medications (includes all prescriptions, OTC, herbals, cannabis, and nutritional supplements).: Yes
--- NOTE | 2024-12-27 15:17 | PCPTNOTE ---
On 12/27/24, the student, MICAH Ayala, provided care and completed [facility] documentation on this patient. I have reviewed the student's documentation and agree with the findings.
[2024-12-27] MEDS: SENNA/DOCUSATE SODIUM TABLET 1 TAB PO (20:56)
[2024-12-27] MEDS: DEXTROSE 5% 1,000 ML 1,000 ML 100 ML IV CONT (23:57)
[2024-12-28] VITALS (10 sets, daily range): BP systolic 143–163; BP diastolic 63–103; PULSE 69–96; RESP 18–22; TEMP 36.3–36.8; O2SAT 91–95
[2024-12-28] MEDS: CENTRAL LINE FLUSH 10 ML IV PUSH ×4 (01:33→19:57)
[2024-12-28 05:38] LABS: Hematocrit 23.9 % (42.0-52.0); Mean Corpuscular HGB Conc 33.5 g/dl (32-36); Mean Corpuscular Hemoglobin 33.6 pg (26-34); Mean Corpuscular Volume 100.4 fl (80-100); Mean Platelet Volume 8.9 fl (7.4-10.4); Platelet Count Result 193 k/mm3 (150-375); Red Blood Count 2.38 M/mm3 (4.6-6.20); Red Cell Distribution Width 12.9 % (11.5-14.5); White Blood Count 9.2 K/mm3 (4.5-10.0)
[2024-12-28 05:53] LABS: Alanine Aminotransferase 23 U/L (6-50); Albumin Level 2.9 g/dL (3.5-5.1); Alkaline Phosphatase 74 U/L (38-126); Anion Gap 7 mmol/L (4-12); Aspartate Amino Transferase 30 U/L (17-59); Bilirubin,Total 0.7 mg/dL (0.2-1.3); Blood Urea Nitrogen 19 mg/dL (9-20); Calcium 8.1 mg/dL (8.4-10.2); Carbon Dioxide 25 mmol/L (22-30); Chloride 109 mmol/L (98-107); Estimated CRCL calculation 61 ml/min; Estimated Glomerular Filt Rate > 60; Glucose 102 mg/dL (65-110); Potassium 3.3 mmol/L (3.4-5.0); Sodium 141 mmol/L (137-145)
[2024-12-28] MEDS: polyethylene glycoL 3350 17 GM POWD.PACK PO (10:05)
[2024-12-28] MEDS: PANTOPRAZOLE SODIUM IV 40 MG VIAL IV PUSH (10:05)
[2024-12-28] MEDS: DEXTROSE 5% 1,000 ML 1,000 ML 100 ML IV CONT (10:05)
[2024-12-28] MEDS: FOLIC ACID 1 MG TABLET PO (10:05)
[2024-12-28] MEDS: THIAMINE HCL 100 MG TABLET PO (10:06)
[2024-12-28] MEDS: ENOXAPARIN 40 MG/0.4 ML SYRINGE SUB-Q (10:06)
[2024-12-28] MEDS: hydrALAZINE 10 MG TABLET PO ×3 (10:06→16:20)
[2024-12-28] MEDS: METOPROLOL TARTRATE 50 MG TAB PO (10:06)
[2024-12-28] MEDS: amLODIPine BESYLATE 10 MG TABLET PO (10:06)
[2024-12-28] MEDS: POTASSIUM CHLORIDE 10 MEQ ER TABLET PO (10:07)
[2024-12-28] MEDS: POTASSIUM CHLORIDE 20 MEQ ER TABLET 40 MEQ PO (10:07)
--- NOTE | 2024-12-28 11:10 | PC.NURSE ---
Updated patient's daughter, Juju, via telephone.
--- NOTE | 2024-12-28 12:18 | PC.NURSE ---
Patient off floor to MRI via stretcher.
--- NOTE | 2024-12-28 12:50 | PC.NURSE ---
Patient returned back to room without issue. Patient up to chair with staff assist.
[2024-12-28 14:37] LABS: Add Urine Microscopic? YES; Appearance Urine Clear (Clear); Bacteria Urine None Seen /hpf; Bilirubin Urine Negative (Negative); Blood Urine Negative (Negative); Color Urine Yellow (Yellow); Glucose Urine UA Negative (Negative); Ketones Urine Negative (Negative); Leukocyte Esterase Ur 1+ LEU/UL (Negative); Need Manual Microscopic Reviewed; Nitrate Urine Negative (Negative); Non Pathogenic Casts 0-2; Protein Urine Trace mg/dL (Negative); Specific Grav Ur 1.017 (1.001-1.035); Squamous Epithelial Cell Urine None Seen /hpf (Few); Urobilinogen Urine 0.2 mg/dL (<2.0); pH Urine 5.5 (5.0-9.0)
--- NOTE | 2024-12-28 15:54 | P.PNIM_ITS ---
Progress Note: A&P Assessment and Plan (1) Acute respiratory failure: Code(s): J96.00 - Acute respiratory failure, unspecified whether with hypoxia or hypercapnia Status: Acute Assessment and Plan: 12/12: Acute respiratory failure/impending respiratory failure likely related to altered mentation secondary to alcohol withdrawal, respiratory distress due to pneumonia and influenza A, COPD/emphysema -12/12: Intubated in the ICU -currently on CMV mode of ventilation, peep of 8 and 30% FiO2, saturating 90 91% -continue bronchodilators given history of COPD -Sedated with propofol and fentanyl infusion, maintain RASS of 0 to -2, daily SBT and SAT -12/15: chest x-rays have not been improving so opted to obtain chest CT which is as under -12/16: Consulted pulmonology and patient had bronchoscopy. Culture sent -antibiotic and antiviral as below -sedation holiday was performed and patient placed on 5/8 PSV but patient became tachypneic with respiratory rate in 30s and failed his trial. -12/18 chest x-ray reviewed and appears worse. For further fluids - 12/18 for weaning trial as chest x-ray appears worsened patient has increased oxygen requirement -12/19 sedation holiday was performed patient not a candidate for weaning trial due to tachypnea tachycardia on loading sedation IV Lasix 12/20 chest x-ray pending, sedation holiday ordered. Patient was placed on PSV 5/8 she tolerated for only little bit of time and then became tachypneic with respiratory rate up to 40s. Patient was placed back on CMV and restarted on low-dose sedatives 12/21 sedation holiday was performed will attempt PSV weaning trial again. Lasix IV x1 today 12/22 Lasix IV give 5/8 PSV SBT done for more than 1 hour. RSBI, ABGI and Vitals acceptable. Patient is quite weak but does have a decent cough reflex. Pt awake and fo llowing commands. Will extubate and monitor. NPO for now. Bipap PRN at night. If he gets reintubate he will need tracheostomy 12/23 doing well and on nasal cannula. Continue supplemental oxygen. Continue incentive spirometry. Up in chair 12/25: I assumed care today. Patient is currently extubated on and on nasal cannula 3 L. 12/26: Will consider CT scan head tomorrow, if no improvement. 12/28: CT and MRI brain shows no acute abnormalities. Ordered blood culture. Chest x-ray shows pneumonia started Levaquin. -12/15: Repeat CT chest: IMPRESSION: Endotracheal tube, left IJ central venous line, NG tube, all in good position. Pulmonary opacities likely representing worsening atypical/viral infection. Small cavitary lesions noted in the right upper lobe. A component of aspiration could be considered given the presence of airway secretions/debris. Trace bilateral pleural effusions. Ascending aortic ectasia (2) Multifocal pneumonia: Code(s): J18.9 - Pneumonia, unspecified organism Status: Acute Assessment and Plan: 12/10: CT chest PE protocol was negative for PE, but showed bilateral multifocal pneumonia -chest x-ray also showed bilateral multifocal pneumonia -patient tested positive for influenza A 12/10: Blood cultures negative x2 12/12: Sputum cultures are negative 12/12: Nasal MRSA not detected Completed course meropenem Completed doxycycline, Discontinue vancomycin (12/19) Completed course off Tamiflu 12/28: Started Levaquin (3) COPD with emphysema: Code(s): J43.9 - Emphysema, unspecified Status: Acute Assessment and Plan: History of COPD/emphysema See above (4) SVT (supraventricular tachycardia): Code(s): I47.10 - Supraventricular tachycardia, unspecified Status: Acute Assessment and Plan: Patient went into SVT on admission, appreciate cardiology evaluation and recommendation likely related to respiratory distress from pneumonia, influenza, alcohol withdrawal. -patient was started on metoprolol per tube by cardiology (12/13) -currently in sinus rhythm, rate controlled, patient does have intermittent SVTs which is short-lived -continue beta-shannan . Echo Summary 1. Complete two-dimensional, color flow and Doppler transthoracic echocardiogram is performed. 2. Technically difficult study with limited views as patient is supine, confused, and restrained with mittens. 3. Overall does appear to have normal biventricular size and systolic function. 4. There does not appear to be any significant valvular disease. (5) Alcohol withdrawal: Code(s): F10.939 - Alcohol use, unspecified with withdrawal, unspecified Status: Acute Assessment and Plan: Patient does have a history of significant alcohol use -in the IMU he had elevated CIWA score and received multiple doses of Ativan -12/12: patient was confused, tremulous, and was in alcohol withdrawal -continue thiamine and folic acid Precedex weaned off -12/25: Will do as needed Ativan if patient is anxious (6) Electrolyte abnormality: Code(s): E87.8 - Other disorders of electrolyte and fluid balance, not elsewhere classified Status: Acute Assessment and Plan: Potassium replacement ordered (7) MICHELLE (acute kidney injury): Code(s): N17.9 - Acute kidney failure, unspecified Status: Acute Assessment and Plan: 12/17 Increase in creatinine as compared to yesterday. Patient was given IV albumin and IV fluids Discontinued vancomycin Monitor urine output electrolytes and creat (8) Ileus: Code(s): K56.7 - Ileus, unspecified Status: Acute Assessment and Plan: Decreased bowel sounds and slight abdominal distension on exam KUB does showed normal bowel gas pattern at this time Patient was tolerating tube feeding and had bowel movements. Now off of tube feed post extubate Continue MiraLax, add Dulcolax suppository Improved. Monitor (9) Hypertension: Code(s): I10 - Essential (primary) hypertension Status: Acute Assessment and Plan: Increase dose of metoprolol and add Norvasc and hydralazine (10) Metabolic encephalopathy: Code(s): G93.41 - Metabolic encephalopathy Status: Acute Assessment and Plan: Normal TSH and B12, RPR negative MRI brain and CT scan brain shows no acute abnormalities Plan DVT prophylaxis: Lovenox Stress ulcer prophylaxis: Protonix Nutrition: Diet ordered Code Status: Full code Speech therapy for bedside swallow eval swallow evaluation, incentive spirometry, PT OT Subjective Date/time seen: 12/28/24 15:54 Interval history: Patient is AAO x3 but still not at baseline. MRI brain shows no abnormalities. Chest x-ray shows stable diffuse lung disease consistent with pneumonia. Patient started on Levaquin. Ordered blood culture and urinalysis. Review of Systems Review of Systems: Cough for 3+ months, patient is a very poor historian and can not really contri bute in a meaningful way to history taking. All systems reviewed & are unremarkable except as noted in HPI and below (HPI) ROS unobtainable: Yes unobtainable due to endotracheal tube, unobtainable due to medical condition and unobtainable due to mental status Exam Narrative: General: I alert awake and in no acute distress HEENT:? Pupils equal and reactive, sclera is clear Neck:? Supple Respiratory:? Clear breath sounds bilaterally, decreased at bases Cardiac:? S1-S2 is normal, regular rate and rhythm Abdomen:? Soft, nontender, mildly distended, absent bowel sound Extremities:? No edema, palpable pedal pulses Neuro:? AO x2, moves all extremities and follows command Skin:? Warm and dry, bruising noted on bilateral upper and lower extremity Psych:? Normal speech and affect Const: General: comfortable, no acute distress, well developed, alert, awake, ill appearing acutely and underweight Nutritional Appearance: underweight Orientation/consciousness: patient oriented x3 Other: Patient looks older than stated age, having bouts of cough HENMT: Head: normal to inspection, normocephalic and atraumatic Ears: hearing grossly normal bilaterally Face/Nose/Sinus: normal facial exam Face and sinus: normal facial exam Eyes: General: appearance normal, both eyes and all related structures Pupils: Equal, round and reactive pupils present EOM: EOMs intact bilaterally Neck: Neck: full ROM, no lymphadenopathy and no JVD Thyroid: thyroid normal Lymphatic: no lymphadenopathy noted Resp: Effort & Inspection: normal respiratory effort, able to speak in complete sentences, Actively coughing and tachypneic Auscultation: crackles, wheezes and diminished lung sounds Cardio: Jugular venous distension: no JVD Rate: tachycardic Rhythm: abnormal rhythm irregularly irregular Heart sounds: S1 normal heart sound present and S2 normal heart sound present GI: Inspection: normal to inspection : General: Yes deferred Skin: Rashes: no rashes Wounds: no wounds Neuro: General: patient oriented x3 and CN's II-XI intact bilaterally Cranial nerves: Yes CN's II-XII intact bilaterally and Yes Equal, round and reactive pupils present Cognition (Neuro): normal cognition Speech: normal speech Gait exam (Neuro): Normal gait present Motor exam (neuro): 5/5 motor strength present throughout Extrem: General: normal to inspection, full ROM, no joint enlargement and no pedal edema Objective Data Vital Signs Vital Signs: Vital Signs - 24 hr 12/27/24 16:00 12/27/24 16:03 12/27/24 19:58 Temperature 96.8 F L 98.2 F Pulse Rate 69 65 78 Respiratory Rate 20 18 Blood Pressure 139/88 150/89 H Pulse Oximetry 96 92 Oxygen Delivery Oxygen Flow Rate 12/27/24 20:00 12/27/24 20:00 12/27/24 20:56 Temperature Pulse Rate 84 84 87 Respiratory Rate Blood Pressure Pulse Oximetry 93 Oxygen Delivery Nasal Cannula Oxygen Flow Rate 2 12/28/24 00:00 12/28/24 00:00 12/28/24 04:00 Temperature 97.5 F L 98.3 F Pulse Rate 80 72 96 Respiratory Rate 18 19 Blood Pressure 143/63 H 147/91 H Pulse Oximetry 95 94 Oxygen Delivery Oxygen Flow Rate 12/28/24 04:00 12/28/24 07:48 12/28/24 08:00 Temperature 98.1 F Pulse Rate 72 76 81 Respiratory Rate 20 20 Blood Pressure 163/93 H Pulse Oximetry 95 95 Oxygen Delivery Nasal Cannula Oxygen Flow Rate 2 12/28/24 08:00 12/28/24 10:06 12/28/24 12:30 Temperature 98.1 F Pulse Rate 77 77 70 Respiratory Rate 20 Blood Pressure 151/92 H Pulse Oximetry 92 Oxygen Delivery Oxygen Flow Rate Intake/Output Intake/Output: Intake & Output 12/25/24 12/26/24 12/27/24 12/28/24 23:59 23:59 23:59 23:59 Intake Total 1977.5 2300.0 1703.3 1000 Output Total 1950 1400 1900 125 Balance 27.5 900.0 -196.7 875 Meds/Results Medications: Active Medications Generic Name Dose Route Start Last Admin Trade Name Freq PRN Reason Stop Dose Admin Acetaminophen 650 mg 12/11/24 07:58 12/18/24 16:00 Acetaminophen 325 Mg Tablet PO 650 mg Q4H PRN Administration Mild Pain (1-3) or Fever Albuterol/Ipratropium 3 ml 12/23/24 07:50 12/23/24 08:11 Ipratropium 0.5 Mg/Albuterol Sulfate 2.5 Mg Ampul.Neb 3 Ml INHALATION 3 ml Q6HRT PRN Administration wheezing Alteplase, Recombinant 2 mg 12/16/24 09:59 12/16/24 16:31 Alteplase 2 Mg Vial (Cathflo) IV PUSH 2 mg ONCE PRN Administration Line Occlusion Amlodipine Besylate 10 mg 12/24/24 09:00 12/28/24 10:06 Amlodipine Besylate 10 Mg Tablet PO 10 mg DAILY SANTIAGO Administration Bisacodyl 10 mg 12/19/24 08:26 12/19/24 09:19 Bisacodyl 10 Mg Suppository RECTAL 10 mg QAM PRN Administration Constipation Dextrose 12.5 gm 12/11/24 11:48 Dextrose 50% 25 Gm/50 Ml Syringe IV PUSH PRN PRN Hypoglycemia Protocol Enoxaparin Sodium 40 mg 12/13/24 09:00 12/28/24 10:06 Enoxaparin 40 Mg/0.4 Ml Syringe SUB-Q 40 mg DAILY SANTIAGO Administration Folic Acid 1 mg 12/24/24 09:00 12/28/24 10:05 Folic Acid 1 Mg Tablet PO 1 mg DAILY SANTIAGO Administration Glucagon 1 mg 12/11/24 11:48 Glucagon For Inj 1 Mg Vial IM PRN PRN Hypoglycemia Protocol Glucose 15 gm 12/11/24 11:48 Glucose Oral Gel 15 Gm Of Glucse In 37.5 Gm Tube PO PRN PRN Hypoglycemia Protocol Hydralazine HCl 10 mg 12/25/24 06:04 12/27/24 05:01 Hydralazine Hcl 20 Mg/Ml Vial IV PUSH 10 mg Q8H PRN Administration HIGH BP SYSTOLIC >150 Hydralazine HCl 10 mg 12/25/24 13:00 12/28/24 13:20 Hydralazine 10 Mg Tablet PO 10 mg QID SANTIAGO Administration Dextrose 1,000 mls @ 100 mls/hr 12/11/24 11:48 Dextrose 5% 1,000 Ml IVPB PRN PRN Hypoglycemia Protocol Dextrose 1,000 mls @ 100 mls/hr 12/27/24 22:05 12/28/24 10:05 Dextrose 5% 1,000 Ml IV CONT 100 mls/hr .Q10H SANTIAGO Administration Labetalol HCl 20 mg 12/23/24 07:50 12/25/24 22:37 Labetalol Hcl Inj 100 Mg/20 Ml Vial IV PUSH 20 mg Q4H PRN Administration SBP > 160 and HR> 60 -1st choice Metoprolol Tartrate 5 mg 12/24/24 07:57 12/27/24 06:01 Metoprolol Tartrate Inj 5 Mg/5 Ml Vial IV PUSH 5 mg Q4H PRN Administration HR > 120 Metoprolol Tartrate 50 mg 12/24/24 09:00 12/28/24 10:06 Metoprolol Tartrate 50 Mg Tab PO 50 mg Q12HR SANTIAGO Administration Ondansetron HCl 4 mg 12/11/24 04:19 Ondansetron Inj 4 Mg/2 Ml Vial IV PUSH Q6H PRN Nausea And Vomiting Pantoprazole Sodium 40 mg 12/13/24 09:00 12/28/24 10:05 Pantoprazole Sodium Iv 40 Mg Vial IV PUSH 40 mg QAM SANTIAGO Administration Polyethylene Glycol 17 gm 12/16/24 10:22 12/28/24 10:05 Polyethylene Glycol 3350 17 Gm Powd.Pack PO 17 gm QAM SANTIAGO Administration Potassium Chloride 10 meq 12/28/24 08:00 12/28/24 10:07 Potassium Chloride 10 Meq Er Tablet PO 10 meq DAILY@0800 SANTIAGO Administration Senna/Docusate Sodium 1 tab 12/16/24 21:00 12/27/24 20:56 Senna/Docusate Sodium Tablet PO 1 tab HS SANTIAGO Administration Sodium Chloride 20 ml 12/12/24 11:00 Central Line Flush IV PUSH PRN PRN after blood draws Sodium Chloride 10 ml 12/12/24 11:00 Central Line Flush IV PUSH PRN PRN with TPN bag changes Sodium Chloride 10 ml 12/13/24 14:00 12/28/24 13:21 Central Line Flush IV PUSH 10 ml Q8HR SANTIAGO Administration Sodium Chloride 20 ml 12/13/24 12:24 12/23/24 05:38 Central Line Flush IV PUSH 20 ml PRN PRN Administration after blood draws Thiamine HCl 100 mg 12/24/24 09:00 12/28/24 10:06 Thiamine Hcl 100 Mg Tablet PO 100 mg QAM SANTIAGO Administration Radiology Results: ITS Impressions Chest CTA 12/10/24 19:15 IMPRESSION: No pulmonary embolism. No aortic dissection. Multifocal pneumonia. Chest CT 12/15/24 16:37 IMPRESSION: Endotracheal tube, left IJ central venous line, NG tube, all in good position. Pulmonary opacities likely representing worsening atypical/viral infection. Small cavitary lesions noted in the right upper lobe. A component of aspiration could be considered given the presence of airway secretions/debris. Trace bilateral pleural effusions. Ascending aortic ectasia. Abdomen X-Ray 12/18/24 14:59 IMPRESSION: 1. Normal bowel gas pattern. Modified Barium Swallow 12/23/24 15:07 IMPRESSION: Please refer to speech pathologist report for additional findings ADDENDUM: 12/23/24 1539 MODIFIED ESOPHAGRAM HISTORY: Prolonged intubation TECHNIQUE: Modified barium esophagram was performed by speech pathologist under radiologist fluoroscopic guidance. This was recorded on tape. The exam was reviewed on 12/23/2024 15:07 CAREER RESOURCE TECHNICIAN. The DAP for this procedure was 1.7 Gycm2. Fluoroscopy time is 2 minutes 1 second. FINDINGS: Lateral projection of the cervical spine demonstrates age- appropriate degenerative disease. Reduced laryngeal elevation. Laryngeal penetration, which cleared without aspiration. Patient unable to masticate effectively IMPRESSION: Please refer to speech pathologist report for additional findings Head CT 12/27/24 22:02 IMPRESSION: 1. Normal aging brain. Chest X-Ray 12/28/24 12:54 IMPRESSION: 1. Stable diffuse lung disease, consistent with pneumonia. Brain MRI 12/28/24 12:55 IMPRESSION: 1. Normal aging brain. Labs Labs: Laboratory Results - last 24 hr 12/28/24 12/28/24 05:31 14:12 WBC 9.2 RBC 2.38 L Hgb 8.0 L Hct 23.9 L MCV 100.4 H MCH 33.6 MCHC 33.5 RDW 12.9 Plt Count 193 MPV 8.9 Sodium 141 Potassium 3.3 L Chloride 109 H Carbon Dioxide 25 Anion Gap 7 BUN 19 Creatinine 1.13 Estim Creat Clear Calc 61 Estimated GFR > 60 Glucose 102 Calcium 8.1 L Magnesium 2.0 Total Bilirubin 0.7 AST 30 ALT 23 Alkaline Phosphatase 74 Total Protein 6.0 L Albumin 2.9 L Urine Color Yellow Urine Appearance Clear Urine pH 5.5 Ur Specific Brooks 1.017 Urine Protein Trace Urine Glucose (UA) Negative Urine Ketones Negative Ur Blood (Man) Negative Urine Nitrate Negative Urine Bilirubin Negative Urine Urobilinogen 0.2 Ur Leukocyte Esterase 1+ H Add Ur Microanalysis Reviewed Urine RBC 6-10 H Urine WBC 6-10 H Ur Squamous Epith Cells None seen Urine Bacteria None seen Urine Casts 0-2 Quality VTE Prophylaxis VTE prophylaxis: pharmacologic ordered Hospitalist [facility] Advance Care Plan I have confirmed that the patient's Advanced Care Plan is present, code status is documented, or surrogate decision maker is listed in patient medical record.: Yes Medication Reconciliation I have utilized all available resources to obtain, update and review the patients current medications (includes all prescriptions, OTC, herbals, cannabis, and nutritional supplements).: Yes
[2024-12-28] MEDS: levoFLOXacin 750 MG/D5W 150 ML 750 MG/150 ML BAG 100 MG IVPB (16:20)
[2024-12-28] MEDS: FUROSEMIDE INJ 40 MG/4 ML VIAL IV PUSH (16:31)
--- NOTE | 2024-12-28 16:58 | PC.NURSE ---
Patient's daughter to bedside. Updated her on patient status. Daughter stated patient increasingly agitated with her and asked her to leave.
[2024-12-28 19:42] LABS: Potassium 3.8 mmol/L (3.4-5.0)
[2024-12-28 19:46] LABS: Ammonia < 9 umol/L (9-30)
[2024-12-28] MEDS: LABETALOL HCL INJ 100 MG/20 ML VIAL 20 MG IV PUSH (19:54)
--- NOTE | 2024-12-28 23:56 | PC.NURSE ---
This patient, Jesse Rodríguez, was transferred to [[facility] ] on 12/28/24 at 2350. Personal belongings sent with patient. Report given to [[facility] ]. Appropriate documentation sent with patient.
[2024-12-29] VITALS (15 sets, daily range): BP systolic 151–178; BP diastolic 74–99; PULSE 60–94; RESP 18–28; TEMP 36.2–36.9; O2SAT 93–99
--- NOTE | 2024-12-29 05:25 | PC.NURSE ---
Pt refuses bipap
[2024-12-29 06:44] LABS: Hematocrit 24.3 % (42.0-52.0); Hemoglobin 8.2 g/dL (14.0-18.0); Mean Corpuscular HGB Conc 33.7 g/dl (32-36); Mean Corpuscular Hemoglobin 33.1 pg (26-34); Mean Platelet Volume 8.8 fl (7.4-10.4); Platelet Count Result 178 k/mm3 (150-375); Red Blood Count 2.48 M/mm3 (4.6-6.20); Red Cell Distribution Width 12.6 % (11.5-14.5); White Blood Count 10.8 K/mm3 (4.5-10.0)
[2024-12-29 07:36] LABS: Alanine Aminotransferase 24 U/L (6-50); Albumin Level 3.1 g/dL (3.5-5.1); Alkaline Phosphatase 85 U/L (38-126); Anion Gap 8 mmol/L (4-12); Aspartate Amino Transferase 31 U/L (17-59); Bilirubin,Total 0.8 mg/dL (0.2-1.3); Blood Urea Nitrogen 16 mg/dL (9-20); Calcium 8.4 mg/dL (8.4-10.2); Carbon Dioxide 27 mmol/L (22-30); Chloride 106 mmol/L (98-107); Estimated CRCL calculation 56 ml/min; Estimated Glomerular Filt Rate > 60; Glucose 87 mg/dL (65-110); Magnesium 1.6 mg/dL (1.6-2.3); Potassium 3.4 mmol/L (3.4-5.0); Sodium 141 mmol/L (137-145)
[2024-12-29] MEDS: THIAMINE HCL 100 MG TABLET PO (09:17)
[2024-12-29] MEDS: amLODIPine BESYLATE 10 MG TABLET PO (09:17)
[2024-12-29] MEDS: hydrALAZINE 10 MG TABLET PO ×2 (09:17→12:34)
[2024-12-29] MEDS: FOLIC ACID 1 MG TABLET PO (09:17)
[2024-12-29] MEDS: METOPROLOL TARTRATE 50 MG TAB PO ×2 (09:17→20:34)
[2024-12-29] MEDS: POTASSIUM CHLORIDE 10 MEQ ER TABLET PO (09:18)
[2024-12-29] MEDS: polyethylene glycoL 3350 17 GM POWD.PACK PO (09:18)
[2024-12-29] MEDS: MAGNESIUM SULF 2 GM/WATER 50ML 2 GM/50 ML BAG IVPB (09:23)
[2024-12-29] MEDS: CENTRAL LINE FLUSH 10 ML IV PUSH ×3 (09:34→20:40)
[2024-12-29] MEDS: POTASSIUM CHLORIDE 20 MEQ ER TABLET 40 MEQ PO (09:36)
[2024-12-29] MEDS: ENOXAPARIN 40 MG/0.4 ML SYRINGE SUB-Q (09:39)
[2024-12-29] MEDS: PANTOPRAZOLE SODIUM IV 40 MG VIAL IV PUSH (09:39)
[2024-12-29 10:24] LABS: Alveolar/Arterial O2 Gradient 124.8 mmHg; Base Excess ABG 2.7 mEq/l (+/-2.0); Fractional Inspired Oxygen 36 %; Oxygen Content ABG 12.2 %vol (16.0-22.0); Oxygen Saturation ABG 97.6 % (95.0-100.0); Oxyhemoglobin 96.6 % THb (90.0-100.0); PCO2 ABG 34.7 mmHg (35.0-45.0); PO2 ABG 91.6 mmHg (80.0-100.0); PO2 FiO2 Ratio Arterial Blood 2.54 %; Total Hemoglobin 8.9 g/dL (12.0-18.0); pH ABG 7.492 (7.350-7.450)
[2024-12-29 10:26] LABS: Device NASAL CANNULA; Modified Allen's Test Pass; Site Drawn RIGHT RADIAL
--- NOTE | 2024-12-29 14:18 | P.PNIM_ITS ---
Progress Note: A&P Assessment and Plan (1) Acute respiratory failure: Code(s): J96.00 - Acute respiratory failure, unspecified whether with hypoxia or hypercapnia Status: Acute Assessment and Plan: 12/12: Acute respiratory failure/impending respiratory failure likely related to altered mentation secondary to alcohol withdrawal, respiratory distress due to pneumonia and influenza A, COPD/emphysema -12/12: Intubated in the ICU -currently on CMV mode of ventilation, peep of 8 and 30% FiO2, saturating 90 91% -continue bronchodilators given history of COPD -Sedated with propofol and fentanyl infusion, maintain RASS of 0 to -2, daily SBT and SAT -12/15: chest x-rays have not been improving so opted to obtain chest CT which is as under -12/16: Consulted pulmonology and patient had bronchoscopy. Culture sent -antibiotic and antiviral as below -sedation holiday was performed and patient placed on 5/8 PSV but patient became tachypneic with respiratory rate in 30s and failed his trial. -12/18 chest x-ray reviewed and appears worse. For further fluids - 12/18 for weaning trial as chest x-ray appears worsened patient has increased oxygen requirement -12/19 sedation holiday was performed patient not a candidate for weaning trial due to tachypnea tachycardia on loading sedation IV Lasix 12/20 chest x-ray pending, sedation holiday ordered. Patient was placed on PSV 5/8 she tolerated for only little bit of time and then became tachypneic with respiratory rate up to 40s. Patient was placed back on CMV and restarted on low-dose sedatives 12/21 sedation holiday was performed will attempt PSV weaning trial again. Lasix IV x1 today 12/22 Lasix IV give 5/8 PSV SBT done for more than 1 hour. RSBI, ABGI and Vitals acceptable. Patient is quite weak but does have a decent cough reflex. Pt awake and fo llowing commands. Will extubate and monitor. NPO for now. Bipap PRN at night. If he gets reintubate he will need tracheostomy 12/23 doing well and on nasal cannula. Continue supplemental oxygen. Continue incentive spirometry. Up in chair 12/25: I assumed care today. Patient is currently extubated on and on nasal cannula 3 L. 12/26: Will consider CT scan head tomorrow, if no improvement. 12/28: CT and MRI brain shows no acute abnormalities. Ordered blood culture. Chest x-ray shows pneumonia started Levaquin. -12/15: Repeat CT chest: IMPRESSION: Endotracheal tube, left IJ central venous line, NG tube, all in good position. Pulmonary opacities likely representing worsening atypical/viral infection. Small cavitary lesions noted in the right upper lobe. A component of aspiration could be considered given the presence of airway secretions/debris. Trace bilateral pleural effusions. Ascending aortic ectasia (2) Multifocal pneumonia: Code(s): J18.9 - Pneumonia, unspecified organism Status: Acute Assessment and Plan: 12/10: CT chest PE protocol was negative for PE, but showed bilateral multifocal pneumonia -chest x-ray also showed bilateral multifocal pneumonia -patient tested positive for influenza A 12/10: Blood cultures negative x2 12/12: Sputum cultures are negative 12/12: Nasal MRSA not detected Completed course meropenem Completed doxycycline, Discontinue vancomycin (12/19) Completed course off Tamiflu 12/28: Started Levaquin (3) COPD with emphysema: Code(s): J43.9 - Emphysema, unspecified Status: Acute Assessment and Plan: History of COPD/emphysema See above (4) SVT (supraventricular tachycardia): Code(s): I47.10 - Supraventricular tachycardia, unspecified Status: Acute Assessment and Plan: Patient went into SVT on admission, appreciate cardiology evaluation and recommendation likely related to respiratory distress from pneumonia, influenza, alcohol withdrawal. -patient was started on metoprolol per tube by cardiology (12/13) -currently in sinus rhythm, rate controlled, patient does have intermittent SVTs which is short-lived -continue beta-shannan . Echo Summary 1. Complete two-dimensional, color flow and Doppler transthoracic echocardiogram is performed. 2. Technically difficult study with limited views as patient is supine, confused, and restrained with mittens. 3. Overall does appear to have normal biventricular size and systolic function. 4. There does not appear to be any significant valvular disease. (5) Alcohol withdrawal: Code(s): F10.939 - Alcohol use, unspecified with withdrawal, unspecified Status: Acute Assessment and Plan: Patient does have a history of significant alcohol use -in the IMU he had elevated CIWA score and received multiple doses of Ativan -12/12: patient was confused, tremulous, and was in alcohol withdrawal -continue thiamine and folic acid Precedex weaned off -12/25: Will do as needed Ativan if patient is anxious (6) Electrolyte abnormality: Code(s): E87.8 - Other disorders of electrolyte and fluid balance, not elsewhere classified Status: Acute Assessment and Plan: Potassium replacement ordered (7) MICHELLE (acute kidney injury): Code(s): N17.9 - Acute kidney failure, unspecified Status: Acute Assessment and Plan: 12/17 Increase in creatinine as compared to yesterday. Patient was given IV albumin and IV fluids Discontinued vancomycin Monitor urine output electrolytes and creat (8) Ileus: Code(s): K56.7 - Ileus, unspecified Status: Acute Assessment and Plan: Decreased bowel sounds and slight abdominal distension on exam KUB does showed normal bowel gas pattern at this time Patient was tolerating tube feeding and had bowel movements. Now off of tube feed post extubate Continue MiraLax, add Dulcolax suppository Improved. Monitor (9) Hypertension: Code(s): I10 - Essential (primary) hypertension Status: Acute Assessment and Plan: Increase dose of metoprolol and add Norvasc and hydralazine (10) Metabolic encephalopathy: Code(s): G93.41 - Metabolic encephalopathy Status: Acute Assessment and Plan: Normal TSH and B12, RPR negative MRI brain and CT scan brain shows no acute abnormalities Plan DVT prophylaxis: Lovenox Stress ulcer prophylaxis: Protonix Nutrition: Diet ordered Code Status: Full code Speech therapy for bedside swallow eval swallow evaluation, incentive spirometry, PT OT Subjective Date/time seen: 12/29/24 14:18 Interval history: Patient is oriented to himself only today. Given the patient is awake but express confabulations. ABG shows no evidence of hypercapnia. Reviewed CT brain and MRI which shows no acute findings. Increase his hydralazine dose from 10 mg to 12.5 q.i.d. due to hypertension. Patient is currently on levofloxacin due to pneumonia Review of Systems Review of Systems: Cough for 3+ months, patient is a very poor historian and can not really contribute in a meaningful way to history taking. All systems reviewed & are unremarkable except as noted in HPI and below (HPI) ROS unobtainable: Yes unobtainable due to endotracheal tube, unobtainable due to medical condition and unobtainable due to mental status Exam Narrative: General: I alert awake and in no acute distress HEENT:? Pupils equal and reactive, sclera is clear Neck:? Supple Respiratory:? Clear breath sounds bilaterally, decreased at bases Cardiac:? S1-S2 is normal, regular rate and rhythm Abdomen:? Soft, nontender, mildly distended, absent bowel sound Extremities:? No edema, palpable pedal pulses Neuro:? AO x2, moves all extremities and follows command Skin:? Warm and dry, bruising noted on bilateral upper and lower extremity Psych:? Normal speech and affect Const: General: comfortable, no acute distress, well developed, alert, awake, ill appearing acutely and underweight Nutritional Appearance: underweight Orientation/consciousness: patient oriented x3 Other: Patient looks older than stated age, having bouts of cough HENMT: Head: normal to inspection, normocephalic and atraumatic Ears: hearing grossly normal bilaterally Face/Nose/Sinus: normal facial exam Face and sinus: normal facial exam Eyes: General: appearance normal, both eyes and all related structures Pupils: Equal, round and reactive pupils present EOM: EOMs intact bilaterally Neck: Neck: full ROM, no lymphadenopathy and no JVD Thyroid: thyroid normal Lymphatic: no lymphadenopathy noted Resp: Effort & Inspection: normal respiratory effort, able to speak in complete sentences, Actively coughing and tachypneic Auscultation: crackles, wheezes and diminished lung sounds Cardio: Jugular venous distension: no JVD Rate: tachycardic Rhythm: abnormal rhythm irregularly irregular Heart sounds: S1 normal heart sound present and S2 normal heart sound present GI: Inspection: normal to inspection : General: Yes deferred Skin: Rashes: no rashes Wounds: no wounds Neuro: General: patient oriented x3 and CN's II-XI intact bilaterally Cranial nerves: Yes CN's II-XII intact bilaterally and Yes Equal, round and reactive pupils present Cognition (Neuro): normal cognition Speech: normal speech Gait exam (Neuro): Normal gait present Motor exam (neuro): 5/5 motor strength present throughout Extrem: General: normal to inspection, full ROM, no joint enlargement and no pedal edema Objective Data Vital Signs Vital Signs: Vital Signs - 24 hr 12/28/24 16:00 12/28/24 16:12/28/24 19:54 Temperature 97.3 F L Pulse Rate 69 70 85 Respiratory Rate 22 H Blood Pressure 160/94 H Pulse Oximetry 95 Oxygen Delivery Oxygen Flow Rate 12/28/24 20:00 12/28/24 20:00 12/28/24 20:00 Temperature 98.0 F Pulse Rate 78 73 72 Respiratory Rate 18 Blood Pressure 163/103 H Pulse Oximetry 91 94 Oxygen Delivery Nasal Cannula Oxygen Flow Rate 2 12/29/24 00:00 12/29/24 00:00 12/29/24 04:00 Temperature 98.3 F 98.5 F Pulse Rate 80 89 89 Respiratory Rate 18 18 Blood Pressure 166/85 H 151/87 H Pulse Oximetry 96 95 Oxygen Delivery Oxygen Flow Rate 12/29/24 04:00 12/29/24 06:32 12/29/24 09:14 Temperature 97.4 F L 97.1 F L Pulse Rate 81 60 89 Respiratory Rate 18 22 H Blood Pressure 153/86 H 172/99 H Pulse Oximetry 93 97 Oxygen Delivery Oxygen Flow Rate 12/29/24 09:17 12/29/24 09:17 12/29/24 09:17 Temperature Pulse Rate 92 92 Respiratory Rate Blood Pressure Pulse Oximetry 97 Oxygen Delivery Nasal Cannula Oxygen Flow Rate 2 12/29/24 11:30 12/29/24 12:00 12/29/24 12:24 Temperature 97.6 F 97.5 F L Pulse Rate 69 75 77 Respiratory Rate 18 28 H Blood Pressure 165/92 H 178/95 H Pulse Oximetry 98 99 Oxygen Delivery Oxygen Flow Rate 12/29/24 13:39 Temperature 97.3 F L Pulse Rate 74 Respiratory Rate 24 H Blood Pressure 153/92 H Pulse Oximetry 98 Oxygen Delivery Oxygen Flow Rate Intake/Output Intake/Output: Intake & Output 12/26/24 12/27/24 12/28/24 12/29/24 23:59 23:59 23:59 23:59 Intake Total 2300.0 1703.3 1210 120 Output Total 1400 1900 1475 1000 Balance 900.0 -196.7 -265 -880 Meds/Results Medications: Active Medications Generic Name Dose Route Start Last Admin Trade Name Freq PRN Reason Stop Dose Admin Acetaminophen 650 mg 12/11/24 07:58 12/18/24 16:00 Acetaminophen 325 Mg Tablet PO 650 mg Q4H PRN Administration Mild Pain (1-3) or Fever Albuterol/Ipratropium 3 ml 12/23/24 07:50 12/23/24 08:11 Ipratropium 0.5 Mg/Albuterol Sulfate 2.5 Mg Ampul.Neb 3 Ml INHALATION 3 ml Q6HRT PRN Administration wheezing Alteplase, Recombinant 2 mg 12/16/24 09:59 12/16/24 16:31 Alteplase 2 Mg Vial (Cathflo) IV PUSH 2 mg ONCE PRN Administration Line Occlusion Amlodipine Besylate 10 mg 12/24/24 09:00 12/29/24 09:17 Amlodipine Besylate 10 Mg Tablet PO 10 mg DAILY SANTIAGO Administration Bisacodyl 10 mg 12/19/24 08:26 12/19/24 09:19 Bisacodyl 10 Mg Suppository RECTAL 10 mg QAM PRN Administration Constipation Dextrose 12.5 gm 12/11/24 11:48 Dextrose 50% 25 Gm/50 Ml Syringe IV PUSH PRN PRN Hypoglycemia Protocol Enoxaparin Sodium 40 mg 12/13/24 09:00 12/29/24 09:39 Enoxaparin 40 Mg/0.4 Ml Syringe SUB-Q 40 mg DAILY SANTIAGO Administration Folic Acid 1 mg 12/24/24 09:00 12/29/24 09:17 Folic Acid 1 Mg Tablet PO 1 mg DAILY SANTIAGO Administration Glucagon 1 mg 12/11/24 11:48 Glucagon For Inj 1 Mg Vial IM PRN PRN Hypoglycemia Protocol Glucose 15 gm 12/11/24 11:48 Glucose Oral Gel 15 Gm Of Glucse In 37.5 Gm Tube PO PRN PRN Hypoglycemia Protocol Hydralazine HCl 10 mg 12/25/24 06:04 12/27/24 05:01 Hydralazine Hcl 20 Mg/Ml Vial IV PUSH 10 mg Q8H PRN Administration HIGH BP SYSTOLIC >150 Hydralazine HCl 10 mg 12/25/24 13:00 12/29/24 12:34 Hydralazine 10 Mg Tablet PO 10 mg QID SANTIAGO Administration Dextrose 1,000 mls @ 100 mls/hr 12/11/24 11:48 Dextrose 5% 1,000 Ml IVPB PRN PRN Hypoglycemia Protocol Levofloxacin/Dextrose 750 mg in 150 mls @ 100 mls/hr 12/28/24 16:00 12/28/24 17:54 Levaquin 750 Mg/D5w 150 Ml IVPB Infused Q24H SANTIAGO Infusion Labetalol HCl 20 mg 12/23/24 07:50 12/28/24 19:54 Labetalol Hcl Inj 100 Mg/20 Ml Vial IV PUSH 20 mg Q4H PRN Administration SBP > 160 and HR> 60 -1st choice Metoprolol Tartrate 5 mg 12/24/24 07:57 12/27/24 06:01 Metoprolol Tartrate Inj 5 Mg/5 Ml Vial IV PUSH 5 mg Q4H PRN Administration HR > 120 Metoprolol Tartrate 50 mg 12/24/24 09:00 12/29/24 09:17 Metoprolol Tartrate 50 Mg Tab PO 50 mg Q12HR SANTIAGO Administration Ondansetron HCl 4 mg 12/11/24 04:19 Ondansetron Inj 4 Mg/2 Ml Vial IV PUSH Q6H PRN Nausea And Vomiting Pantoprazole Sodium 40 mg 12/13/24 09:00 12/29/24 09:39 Pantoprazole Sodium Iv 40 Mg Vial IV PUSH 40 mg QAM SANTIAGO Administration Polyethylene Glycol 17 gm 12/16/24 10:22 12/29/24 09:18 Polyethylene Glycol 3350 17 Gm Powd.Pack PO 17 gm QAM SANTIAGO Administration Potassium Chloride 10 meq 12/28/24 08:00 12/29/24 09:18 Potassium Chloride 10 Meq Er Tablet PO 10 meq DAILY@0800 SANTIAGO Administration Senna/Docusate Sodium 1 tab 12/16/24 21:00 12/28/24 19:53 Senna/Docusate Sodium Tablet PO Not Given HS SANTIAGO Sodium Chloride 20 ml 12/12/24 11:00 Central Line Flush IV PUSH PRN PRN after blood draws Sodium Chloride 10 ml 12/12/24 11:00 Central Line Flush IV PUSH PRN PRN with TPN bag changes Sodium Chloride 10 ml 12/13/24 14:00 12/29/24 09:34 Central Line Flush IV PUSH 10 ml Q8HR SANTIAGO Administration Sodium Chloride 20 ml 12/13/24 12:24 12/23/24 05:38 Central Line Flush IV PUSH 20 ml PRN PRN Administration after blood draws Thiamine HCl 100 mg 12/24/24 09:00 12/29/24 09:17 Thiamine Hcl 100 Mg Tablet PO 100 mg QAM SANTIAGO Administration Radiology Results: ITS Impressions Chest CTA 12/10/24 19:15 IMPRESSION: No pulmonary embolism. No aortic dissection. Multifocal pneumonia. Chest CT 12/15/24 16:37 IMPRESSION: Endotracheal tube, left IJ central venous line, NG tube, all in good position. Pulmonary opacities likely representing worsening atypical/viral infection. Small cavitary lesions noted in the right upper lobe. A component of aspiration could be considered given the presence of airway secretions/debris. Trace bilateral pleural effusions. Ascending aortic ectasia. Abdomen X-Ray 12/18/24 14:59 IMPRESSION: 1. Normal bowel gas pattern. Modified Barium Swallow 12/23/24 15:07 IMPRESSION: Please refer to speech pathologist report for additional findings ADDENDUM: 12/23/24 1539 MODIFIED ESOPHAGRAM HISTORY: Prolonged intubation TECHNIQUE: Modified barium esophagram was performed by speech pathologist under radiologist fluoroscopic guidance. This was recorded on tape. The exam was reviewed on 12/23/2024 15:07 SPEECH/LANGUAGE THERAPIST. The DAP for this procedure was 1.7 Gycm2. Fluoroscopy time is 2 minutes 1 second. FINDINGS: Lateral projection of the cervical spine demonstrates age- appropriate degenerative disease. Reduced laryngeal elevation. Laryngeal penetration, which cleared without aspiration. Patient unable to masticate effectively IMPRESSION: Please refer to speech pathologist report for additional findings Head CT 12/27/24 22:02 IMPRESSION: 1. Normal aging brain. Chest X-Ray 12/28/24 12:54 IMPRESSION: 1. Stable diffuse lung disease, consistent with pneumonia. Brain MRI 12/28/24 12:55 IMPRESSION: 1. Normal aging brain. Labs Labs: Laboratory Results - last 24 hr 12/28/24 12/28/24 12/29/24 14:12 19:30 06:33 WBC 10.8 H RBC 2.48 L Hgb 8.2 L Hct 24.3 L MCV 98.0 MCH 33.1 MCHC 33.7 RDW 12.6 Plt Count 178 MPV 8.8 Puncture Site ABG pH ABG pCO2 ABG pO2 ABG PO2/FiO2 Ratio ABG HCO3 ABG O2 Saturation ABG O2 Content ABG Base Excess A-a Gradient Oxyhemoglobin Total Hemoglobin O2 Delivery Device FiO2 Sodium 141 Potassium 3.8 3.4 Chloride 106 Carbon Dioxide 27 Anion Gap 8 BUN 16 Creatinine 1.21 Estim Creat Clear Calc 56 Estimated GFR > 60 Glucose 87 Calcium 8.4 Magnesium 1.6 Total Bilirubin 0.8 AST 31 ALT 24 Alkaline Phosphatase 85 Ammonia < 9 L Total Protein 6.0 L Albumin 3.1 L Urine Color Yellow Urine Appearance Clear Urine pH 5.5 Ur Specific [place] 1.017 Urine Protein Trace Urine Glucose (UA) Negative Urine Ketones Negative Ur Blood (Man) Negative Urine Nitrate Negative Urine Bilirubin Negative Urine Urobilinogen 0.2 Ur Leukocyte Esterase 1+ H Add Ur Microanalysis Reviewed Urine RBC 6-10 H Urine WBC 6-10 H Ur Squamous Epith Cells None seen Urine Bacteria None seen Urine Casts 0-2 12/29/24 10:16 WBC RBC Hgb Hct MCV MCH MCHC RDW Plt Count MPV Puncture Site Right radial ABG pH 7.492 H ABG pCO2 34.7 L ABG pO2 91.6 ABG PO2/FiO2 Ratio 2.54 ABG HCO3 26.0 ABG O2 Saturation 97.6 ABG O2 Content 12.2 L ABG Base Excess 2.7 A-a Gradient 124.8 Oxyhemoglobin 96.6 Total Hemoglobin 8.9 L O2 Delivery Device Nasal cannula FiO2 36 Sodium Potassium Chloride Carbon Dioxide Anion Gap BUN Creatinine Estim Creat Clear Calc Estimated GFR Glucose Calcium Magnesium Total Bilirubin AST ALT Alkaline Phosphatase Ammonia Total Protein Albumin Urine Color Urine Appearance Urine pH Ur Specific [place] Urine Protein Urine Glucose (UA) Urine Ketones Ur Blood (Man) Urine Nitrate Urine Bilirubin Urine Urobilinogen Ur Leukocyte Esterase Add Ur Microanalysis Urine RBC Urine WBC Ur Squamous Epith Cells Urine Bacteria Urine Casts Quality VTE Prophylaxis VTE prophylaxis: pharmacologic ordered Hospitalist MIPS Advance Care Plan I have confirmed that the patient's Advanced Care Plan is present, code status is documented, or surrogate decision maker is listed in patient medical record.: Yes Medication Reconciliation I have utilized all available resources to obtain, update and review the patients current medications (includes all prescriptions, OTC, herbals, cannabis, and nutritional supplements).: Yes
[2024-12-29] MEDS: levoFLOXacin 750 MG/D5W 150 ML 750 MG/150 ML BAG 100 MG IVPB (15:04)
[2024-12-29] MEDS: FUROSEMIDE INJ 40 MG/4 ML VIAL IV PUSH (15:23)
[2024-12-29] MEDS: hydrALAZINE 12.5 MG TABLET PO ×2 (17:45→20:34)
[2024-12-29] MEDS: ACETAMINOPHEN 325 MG TABLET 650 MG PO (20:34)
[2024-12-29] MEDS: SENNA/DOCUSATE SODIUM TABLET 1 TAB PO (20:34)
[2024-12-30] VITALS (14 sets, daily range): BP systolic 129–173; BP diastolic 74–90; PULSE 60–78; RESP 18–22; TEMP 36.3–36.8; O2SAT 96–100
[2024-12-30 05:47] LABS: Hematocrit 24.4 % (42.0-52.0); Hemoglobin 8.2 g/dL (14.0-18.0); Mean Corpuscular HGB Conc 33.6 g/dl (32-36); Mean Corpuscular Hemoglobin 32.8 pg (26-34); Mean Corpuscular Volume 97.6 fl (80-100); Mean Platelet Volume 8.7 fl (7.4-10.4); Platelet Count Result 167 k/mm3 (150-375); Red Cell Distribution Width 12.8 % (11.5-14.5); White Blood Count 8.2 K/mm3 (4.5-10.0)
[2024-12-30 06:00] LABS: Alanine Aminotransferase 24 U/L (6-50); Albumin Level 3.3 g/dL (3.5-5.1); Alkaline Phosphatase 84 U/L (38-126); Anion Gap 7 mmol/L (4-12); Aspartate Amino Transferase 30 U/L (17-59); Bilirubin,Total 0.8 mg/dL (0.2-1.3); Blood Urea Nitrogen 16 mg/dL (9-20); Calcium 8.5 mg/dL (8.4-10.2); Carbon Dioxide 29 mmol/L (22-30); Chloride 103 mmol/L (98-107); Estimated CRCL calculation 54 ml/min; Estimated Glomerular Filt Rate > 60; Glucose 84 mg/dL (65-110); Potassium 3.5 mmol/L (3.4-5.0); Sodium 139 mmol/L (137-145)
[2024-12-30] MEDS: CENTRAL LINE FLUSH 10 ML IV PUSH ×3 (06:36→20:32)
--- NOTE | 2024-12-30 07:39 | P.PNIM_ITS ---
Progress Note: A&P Assessment and Plan (1) Acute respiratory failure: Code(s): J96.00 - Acute respiratory failure, unspecified whether with hypoxia or hypercapnia Status: Acute Assessment and Plan: 12/12: Acute respiratory failure/impending respiratory failure likely related to altered mentation secondary to alcohol withdrawal, respiratory distress due to pneumonia and influenza A, COPD/emphysema -12/12: Intubated in the ICU -currently on CMV mode of ventilation, peep of 8 and 30% FiO2, saturating 90 91% -continue bronchodilators given history of COPD -Sedated with propofol and fentanyl infusion, maintain RASS of 0 to -2, daily SBT and SAT -12/15: chest x-rays have not been improving so opted to obtain chest CT which is as under -12/16: Consulted pulmonology and patient had bronchoscopy. Culture sent -antibiotic and antiviral as below -sedation holiday was performed and patient placed on 5/8 PSV but patient became tachypneic with respiratory rate in 30s and failed his trial. -12/18 chest x-ray reviewed and appears worse. For further fluids - 12/18 for weaning trial as chest x-ray appears worsened patient has increased oxygen requirement -12/19 sedation holiday was performed patient not a candidate for weaning trial due to tachypnea tachycardia on loading sedation IV Lasix 12/20 chest x-ray pending, sedation holiday ordered. Patient was placed on PSV 5/8 she tolerated for only little bit of time and then became tachypneic with respiratory rate up to 40s. Patient was placed back on CMV and restarted on low-dose sedatives 12/21 sedation holiday was performed will attempt PSV weaning trial again. Lasix IV x1 today 12/22 Lasix IV give 5/8 PSV SBT done for more than 1 hour. RSBI, ABGI and Vitals acceptable. Patient is quite weak but does have a decent cough reflex. Pt awake and fo llowing commands. Will extubate and monitor. NPO for now. Bipap PRN at night. If he gets reintubate he will need tracheostomy 12/23 doing well and on nasal cannula. Continue supplemental oxygen. Continue incentive spirometry. Up in chair 12/25: I assumed care today. Patient is currently extubated on and on nasal cannula 3 L. 12/26: Will consider CT scan head tomorrow, if no improvement. 12/28: CT and MRI brain shows no acute abnormalities. Ordered blood culture. Chest x-ray shows pneumonia started Levaquin. -12/15: Repeat CT chest: IMPRESSION: Endotracheal tube, left IJ central venous line, NG tube, all in good position. Pulmonary opacities likely representing worsening atypical/viral infection. Small cavitary lesions noted in the right upper lobe. A component of aspiration could be considered given the presence of airway secretions/debris. Trace bilateral pleural effusions. Ascending aortic ectasia (2) Multifocal pneumonia: Code(s): J18.9 - Pneumonia, unspecified organism Status: Acute Assessment and Plan: 12/10: CT chest PE protocol was negative for PE, but showed bilateral multifocal pneumonia -chest x-ray also showed bilateral multifocal pneumonia -patient tested positive for influenza A 12/10: Blood cultures negative x2 12/12: Sputum cultures are negative 12/12: Nasal MRSA not detected Completed course meropenem Completed doxycycline, Discontinue vancomycin (12/19) Completed course off Tamiflu 12/28: Started Levaquin (3) COPD with emphysema: Code(s): J43.9 - Emphysema, unspecified Status: Acute Assessment and Plan: History of COPD/emphysema See above (4) SVT (supraventricular tachycardia): Code(s): I47.10 - Supraventricular tachycardia, unspecified Status: Acute Assessment and Plan: Patient went into SVT on admission, appreciate cardiology evaluation and recommendation likely related to respiratory distress from pneumonia, influenza, alcohol withdrawal. -patient was started on metoprolol per tube by cardiology (12/13) -currently in sinus rhythm, rate controlled, patient does have intermittent SVTs which is short-lived -continue beta-shannan . Echo Summary 1. Complete two-dimensional, color flow and Doppler transthoracic echocardiogram is performed. 2. Technically difficult study with limited views as patient is supine, confused, and restrained with mittens. 3. Overall does appear to have normal biventricular size and systolic function. 4. There does not appear to be any significant valvular disease. (5) Alcohol withdrawal: Code(s): F10.939 - Alcohol use, unspecified with withdrawal, unspecified Status: Acute Assessment and Plan: Patient does have a history of significant alcohol use -in the IMU he had elevated CIWA score and received multiple doses of Ativan -12/12: patient was confused, tremulous, and was in alcohol withdrawal -continue thiamine and folic acid Precedex weaned off -12/25: Will do as needed Ativan if patient is anxious (6) Electrolyte abnormality: Code(s): E87.8 - Other disorders of electrolyte and fluid balance, not elsewhere classified Status: Acute Assessment and Plan: Potassium replacement ordered (7) MICHELLE (acute kidney injury): Code(s): N17.9 - Acute kidney failure, unspecified Status: Acute Assessment and Plan: 12/17 Increase in creatinine as compared to yesterday. Patient was given IV albumin and IV fluids Discontinued vancomycin Monitor urine output electrolytes and creat (8) Ileus: Code(s): K56.7 - Ileus, unspecified Status: Acute Assessment and Plan: Decreased bowel sounds and slight abdominal distension on exam KUB does showed normal bowel gas pattern at this time Patient was tolerating tube feeding and had bowel movements. Now off of tube feed post extubate Continue MiraLax, add Dulcolax suppository Improved. Monitor (9) Hypertension: Code(s): I10 - Essential (primary) hypertension Status: Acute Assessment and Plan: Increase dose of metoprolol and add Norvasc and hydralazine (10) Metabolic encephalopathy: Code(s): G93.41 - Metabolic encephalopathy Status: Acute Assessment and Plan: Normal TSH and B12, RPR negative MRI brain and CT scan brain shows no acute abnormalities Plan DVT prophylaxis: Lovenox Stress ulcer prophylaxis: Protonix Nutrition: Diet ordered Code Status: Full code Speech therapy for bedside swallow eval swallow evaluation, incentive spirometry, PT OT Subjective Date/time seen: 12/30/24 07:39 Interval history: Restarting his home HCTZ 25 mg PO qd. Patient is also started on Hydralazine 12.5 mg PO TID. BP not on target. Patient is getting better but still confused. Possible from PNA,alcohol withdrawal or from ICU delirium. All infectious work up including Hep B,RPR,TSH,Ammonia,Blood gas ,MRI,CT were negative. Pending Neurology evaluation.Treating PNA with Levaquin.No electrolyte abnormalities Review of Systems Review of Systems: Cough for 3+ months, patient is a very poor historian and can not really contribute in a meaningful way to history taking. All systems reviewed & are unremarkable except as noted in HPI and below (HPI) ROS unobtainable: Yes unobtainable due to endotracheal tube, unobt ainable due to medical condition and unobtainable due to mental status Exam Narrative: General: I alert awake and in no acute distress HEENT:? Pupils equal and reactive, sclera is clear Neck:? Supple Respiratory:? Clear breath sounds bilaterally, decreased at bases Cardiac:? S1-S2 is normal, regular rate and rhythm Abdomen:? Soft, nontender, mildly distended, absent bowel sound Extremities:? No edema, palpable pedal pulses Neuro:? AO x2, moves all extremities and follows command Skin:? Warm and dry, bruising noted on bilateral upper and lower extremity Psych:? Normal speech and affect Const: General: comfortable, no acute distress, well developed, alert, awake, ill appearing acutely and underweight Nutritional Appearance: underweight Orientation/consciousness: patient oriented x3 Other: Patient looks older than stated age, having bouts of cough HENMT: Head: normal to inspection, normocephalic and atraumatic Ears: hearing grossly normal bilaterally Face/Nose/Sinus: normal facial exam Face and sinus: normal facial exam Mouth: Yes dry mucous membranes Other: OETT in place Eyes: General: appearance normal, both eyes and all related structures Sclera: sclerae normal Pupils: Equal, round and reactive pupils present EOM: EOMs intact bilaterally Neck: Neck: full ROM, no lymphadenopathy and no JVD Thyroid: thyroid normal Lymphatic: no lymphadenopathy noted Chest: Chest palpation & inspection: normal inspection of the chest Resp: Effort & Inspection: normal respiratory effort, able to speak in complete sentences, Actively coughing and tachypneic Auscultation: crackles, wheezes and diminished lung sounds Other: On mechanical ventilation Cardio: Jugular venous distension: no JVD Rate: tachycardic Rhythm: abnormal rhythm irregularly irregular Heart sounds: S1 normal heart sound present and S2 normal heart sound present GI: Inspection: normal to inspection : General: Yes deferred Skin: General skin exam: normal color Rashes: no rashes Wounds: no wounds Neuro: General: patient oriented x3 and CN's II-XI intact bilaterally Cranial nerves: Yes CN's II-XII intact bilaterally and Yes Equal, round and reactive pupils present Cognition (Neuro): normal cognition Speech: normal speech Gait exam (Neuro): Normal gait present Motor exam (neuro): 5/5 motor strength present throughout Other: sedated iwth propofol and fentanyl Extrem: General: normal to inspection, full ROM, no joint enlargement and no pedal edema Psych: Other: Sedated Objective Data Vital Signs Vital Signs: Vital Signs - 24 hr 12/29/24 09:14 12/29/24 09:17 12/29/24 09:17 Temperature 97.1 F L Pulse Rate 89 92 Respiratory Rate 22 H Blood Pressure 172/99 H Pulse Oximetry 97 97 Oxygen Delivery Nasal Cannula Oxygen Flow Rate 2 Fraction of Inspired Oxygen 12/29/24 09:17 12/29/24 11:30 12/29/24 12:00 Temperature 97.6 F Pulse Rate 92 69 75 Respiratory Rate 18 Blood Pressure 165/92 H Pulse Oximetry 98 Oxygen Delivery Oxygen Flow Rate Fraction of Inspired Oxygen 12/29/24 12:24 12/29/24 13:39 12/29/24 16:00 Temperature 97.5 F L 97.3 F L Pulse Rate 77 74 76 Respiratory Rate 28 H 24 H Blood Pressure 178/95 H 153/92 H Pulse Oximetry 99 98 Oxygen Delivery Oxygen Flow Rate Fraction of Inspired Oxygen 12/29/24 16:58 12/29/24 19:58 12/29/24 20:00 Temperature 97.4 F L 98.1 F Pulse Rate 76 70 93 Respiratory Rate 20 20 20 Blood Pressure 158/92 H 153/87 H Pulse Oximetry 98 96 96 Oxygen Delivery Nasal Cannula Oxygen Flow Rate 2 Fraction of Inspired Oxygen 32 12/29/24 20:00 12/29/24 20:34 12/29/24 23:27 Temperature 97.7 F Pulse Rate 94 93 80 Respiratory Rate 20 Blood Pressure 155/74 H Pulse Oximetry 98 Oxygen Delivery Oxygen Flow Rate Fraction of Inspired Oxygen 12/30/24 00:00 12/30/24 04:00 12/30/24 04:00 Temperature 98.1 F Pulse Rate 78 70 75 Respiratory Rate 20 Blood Pressure 164/76 H Pulse Oximetry 96 Oxygen Delivery Oxygen Flow Rate Fraction of Inspired Oxygen Intake/Output Intake/Output: Intake & Output 12/27/24 12/28/24 12/29/24 12/30/24 23:59 23:59 23:59 23:59 Intake Total 1703.3 1210 720 240 Output Total 1900 6039 4737 1000 Balance -196.7 -265 -3155 -760 Meds/Results Medications: Active Medications Generic Name Dose Route Start Last Admin Trade Name Freq PRN Reason Stop Dose Admin Acetaminophen 650 mg 12/11/24 07:58 12/29/24 20:34 Acetaminophen 325 Mg Tablet PO 650 mg Q4H PRN Administration Mild Pain (1-3) or Fever Albuterol/Ipratropium 3 ml 12/23/24 07:50 12/23/24 08:11 Ipratropium 0.5 Mg/Albuterol Sulfate 2.5 Mg Ampul.Neb 3 Ml INHALATION 3 ml Q6HRT PRN Administration wheezing Alteplase, Recombinant 2 mg 12/16/24 09:59 12/16/24 16:31 Alteplase 2 Mg Vial (Cathflo) IV PUSH 2 mg ONCE PRN Administration Line Occlusion Amlodipine Besylate 10 mg 12/24/24 09:00 12/29/24 09:17 Amlodipine Besylate 10 Mg Tablet PO 10 mg DAILY SANTIAGO Administration Bisacodyl 10 mg 12/19/24 08:26 12/19/24 09:19 Bisacodyl 10 Mg Suppository RECTAL 10 mg QAM PRN Administration Constipation Dextrose 12.5 gm 12/11/24 11:48 Dextrose 50% 25 Gm/50 Ml Syringe IV PUSH PRN PRN Hypoglycemia Protocol Enoxaparin Sodium 40 mg 12/13/24 09:00 12/29/24 09:39 Enoxaparin 40 Mg/0.4 Ml Syringe SUB-Q 40 mg DAILY SANTIAGO Administration Folic Acid 1 mg 12/24/24 09:00 12/29/24 09:17 Folic Acid 1 Mg Tablet PO 1 mg DAILY SANTIAGO Administration Glucagon 1 mg 12/11/24 11:48 Glucagon For Inj 1 Mg Vial IM PRN PRN Hypoglycemia Protocol Glucose 15 gm 12/11/24 11:48 Glucose Oral Gel 15 Gm Of Glucse In 37.5 Gm Tube PO PRN PRN Hypoglycemia Protocol Hydralazine HCl 10 mg 12/25/24 06:04 12/27/24 05:01 Hydralazine Hcl 20 Mg/Ml Vial IV PUSH 10 mg Q8H PRN Administration HIGH BP SYSTOLIC >150 Hydralazine HCl 12.5 mg 12/29/24 17:00 12/29/24 20:34 Hydralazine 12.5 Mg Tablet PO 12.5 mg QID SANTIAGO Administration Hydrochlorothiazide 25 mg 12/30/24 09:00 Hydrochlorothiazide 25 Mg Tablet PO DAILY SANTIAGO Dextrose 1,000 mls @ 100 mls/hr 12/11/24 11:48 Dextrose 5% 1,000 Ml IVPB PRN PRN Hypoglycemia Protocol Levofloxacin/Dextrose 750 mg in 150 mls @ 100 mls/hr 12/28/24 16:00 12/29/24 15:04 Levaquin 750 Mg/D5w 150 Ml IVPB 100 mls/hr Q24H SANTIAGO Administration Labetalol HCl 20 mg 12/23/24 07:50 12/28/24 19:54 Labetalol Hcl Inj 100 Mg/20 Ml Vial IV PUSH 20 mg Q4H PRN Administration SBP > 160 and HR> 60 -1st choice Metoprolol Tartrate 5 mg 12/24/24 07:57 12/27/24 06:01 Metoprolol Tartrate Inj 5 Mg/5 Ml Vial IV PUSH 5 mg Q4H PRN Administration HR > 120 Metoprolol Tartrate 50 mg 12/24/24 09:00 12/29/24 20:34 Metoprolol Tartrate 50 Mg Tab PO 50 mg Q12HR SANTIAGO Administration Ondansetron HCl 4 mg 12/11/24 04:19 Ondansetron Inj 4 Mg/2 Ml Vial IV PUSH Q6H PRN Nausea And Vomiting Pantoprazole Sodium 40 mg 12/13/24 09:00 12/29/24 09:39 Pantoprazole Sodium Iv 40 Mg Vial IV PUSH 40 mg QAM SANTIAGO Administration Polyethylene Glycol 17 gm 12/16/24 10:22 12/29/24 09:18 Polyethylene Glycol 3350 17 Gm Powd.Pack PO 17 gm QAM SANTIAGO Administration Potassium Chloride 10 meq 12/28/24 08:00 12/29/24 09:18 Potassium Chloride 10 Meq Er Tablet PO 10 meq DAILY@0800 SANTIAGO Administration Senna/Docusate Sodium 1 tab 12/16/24 21:00 12/29/24 20:34 Senna/Docusate Sodium Tablet PO 1 tab HS SANTIAGO Administration Sodium Chloride 20 ml 12/12/24 11:00 Central Line Flush IV PUSH PRN PRN after blood draws Sodium Chloride 10 ml 12/12/24 11:00 Central Line Flush IV PUSH PRN PRN with TPN bag changes Sodium Chloride 10 ml 12/13/24 14:00 12/30/24 06:36 Central Line Flush IV PUSH 10 ml Q8HR SANTIAGO Administration Sodium Chloride 20 ml 12/13/24 12:24 12/23/24 05:38 Central Line Flush IV PUSH 20 ml PRN PRN Administration after blood draws Thiamine HCl 100 mg 12/24/24 09:00 12/29/24 09:17 Thiamine Hcl 100 Mg Tablet PO 100 mg QAM SANTIAGO Administration Radiology Results: ITS Impressions Chest CTA 12/10/24 19:15 IMPRESSION: No pulmonary embolism. No aortic dissection. Multifocal pneumonia. Chest CT 12/15/24 16:37 IMPRESSION: Endotracheal tube, left IJ central venous line, NG tube, all in good position. Pulmonary opacities likely representing worsening atypical/viral infection. Small cavitary lesions noted in the right upper lobe. A component of aspiration could be considered given the presence of airway secretions/debris. Trace bilateral pleural effusions. Ascending aortic ectasia. Abdomen X-Ray 12/18/24 14:59 IMPRESSION: 1. Normal bowel gas pattern. Modified Barium Swallow 12/23/24 15:07 IMPRESSION: Please refer to speech pathologist report for additional findings ADDENDUM: 12/23/24 1539 MODIFIED ESOPHAGRAM HISTORY: Prolonged intubation TECHNIQUE: Modified barium esophagram was performed by speech pathologist under radiologist fluoroscopic guidance. This was recorded on tape. The exam was reviewed on 12/23/2024 15:07 GENERAL PEDIATRICIAN. The DAP for this procedure was 1.7 Gycm2. Fluoroscopy time is 2 minutes 1 second. FINDINGS: Lateral projection of the cervical spine demonstrates age- appropriate degenerative disease. Reduced laryngeal elevation. Laryngeal penetration, which cleared without aspiration. Patient unable to masticate effectively IMPRESSION: Please refer to speech pathologist report for additional findings Head CT 12/27/24 22:02 IMPRESSION: 1. Normal aging brain. Chest X-Ray 12/28/24 12:54 IMPRESSION: 1. Stable diffuse lung disease, consistent with pneumonia. Brain MRI 12/28/24 12:55 IMPRESSION: 1. Normal aging brain. Labs Labs: Laboratory Results - last 24 hr 12/29/24 12/30/24 10:16 05:35 WBC 8.2 RBC 2.50 L Hgb 8.2 L Hct 24.4 L MCV 97.6 MCH 32.8 MCHC 33.6 RDW 12.8 Plt Count 167 MPV 8.7 Puncture Site Right radial ABG pH 7.492 H ABG pCO2 34.7 L ABG pO2 91.6 ABG PO2/FiO2 Ratio 2.54 ABG HCO3 26.0 ABG O2 Saturation 97.6 ABG O2 Content 12.2 L ABG Base Excess 2.7 A-a Gradient 124.8 Oxyhemoglobin 96.6 Total Hemoglobin 8.9 L O2 Delivery Device Nasal cannula FiO2 36 Sodium 139 Potassium 3.5 Chloride 103 Carbon Dioxide 29 Anion Gap 7 BUN 16 Creatinine 1.21 Estim Creat Clear Calc 54 Estimated GFR > 60 Glucose 84 Calcium 8.5 Total Bilirubin 0.8 AST 30 ALT 24 Alkaline Phosphatase 84 Total Protein 7.0 Albumin 3.3 L Quality VTE Prophylaxis VTE prophylaxis: pharmacologic ordered Hospitalist [facility] Advance Care Plan I have confirmed that the patient's Advanced Care Plan is present, code status is documented, or surrogate decision maker is listed in patient medical record.: Yes Medication Reconciliation I have utilized all available resources to obtain, update and review the patients current medications (includes all prescriptions, OTC, herbals, cannabis, and nutritional supplements).: Yes
[2024-12-30] MEDS: PANTOPRAZOLE SODIUM IV 40 MG VIAL IV PUSH (08:20)
[2024-12-30] MEDS: ENOXAPARIN 40 MG/0.4 ML SYRINGE SUB-Q (08:20)
[2024-12-30] MEDS: METOPROLOL TARTRATE 50 MG TAB PO ×2 (08:21→20:32)
[2024-12-30] MEDS: THIAMINE HCL 100 MG TABLET PO (08:21)
[2024-12-30] MEDS: polyethylene glycoL 3350 17 GM POWD.PACK PO (08:22)
[2024-12-30] MEDS: amLODIPine BESYLATE 10 MG TABLET PO (08:23)
[2024-12-30] MEDS: hydrALAZINE 12.5 MG TABLET PO ×3 (08:23→20:32)
[2024-12-30] MEDS: POTASSIUM CHLORIDE 10 MEQ ER TABLET PO (08:23)
[2024-12-30] MEDS: FOLIC ACID 1 MG TABLET PO (08:23)
[2024-12-30] MEDS: hydroCHLOROthiazide 25 MG TABLET PO (08:26)
--- NOTE | 2024-12-30 11:16 | PCNFU ---
Nutrition Follow-Up Complete: Suboptimal Nutrition as related to mechanical ventilation as evidenced by NPO. Goal; Meet estimated nutritional needs. Patient has limited progress towards goal. We will continue current goal. Pt current nutrition is Minced and Moist, Level 5/Heart Healthy with Nutritional Ice Cream BID. Last recorded weight is 67.9 kg, down from 69 kg on admit. Bowel Motility: +BM reported 12/28 Labs Reviewed: K 3.3, Hgb 8.2, Hct 24.4 Meds Noted: Folic Acid, Protonix, Miralax, Senokot, Thiamine. Skin: WNL Additional Notes: Spoke with nursing today, regarding oral intake. Patient is a feeding, eating 25% on average of meals. Some concerns regarding liquids per nursing. Possible speech re-eval. Nursing to discuss with hospitalist today. Nutritional Ice Cream being providing, which is Level 4 consistencies and providing an additional 300 kcal and 9 gm protein. Would recommend on trays vs BID. Will monitor weight, labs, skin, diet orders, meds every 3 days.
[2024-12-30] MEDS: hydrALAZINE HCL 20 MG/ML VIAL 10 MG IV PUSH (11:17)
[2024-12-30] MEDS: metroNIDAZOLE 500 MG TABLET PO ×2 (13:39→20:32)
--- NOTE | 2024-12-30 14:20 | PCOTNOTE ---
Patient out of the room at this time. Per RN, Patient down having a MBS test and CT.
--- NOTE | 2024-12-30 14:42 | PCSTNOTE ---
Please refer to the Modified Barium Swallow Evaluation in the EMR. Pt was seen for a repeat MBS due to a gurgly vocal quality with breakfast this am - per RN; previous MBS revealed intermittent laryngeal penetration during the swallow but each instance was cleared without aspiration; it was recommended that pt be positioned completely upright with all oral intake. At this time the pt was found to be much more alert; seemingly very confused, rambling incoherently and moving around during the test requiring redirection. The patient was seated for a lateral view and presented with 5cc of thin liquid barium via spoon, pudding consistency barium via a spoon, a cracker coated with barium pudding via spoon, and uncontrolled thin liquid barium. This was presented via a cup & straw. Oral preparatory and oral phase symptoms: within functional limits; however, with episodes where pt was chewing he would get sidetracked and start talking requiring redirection to chew and swallow (could pose aspiration risk). During the pharyngeal stage, intermittent laryngeal penetration occurred with thin liquid trials via a cup and straw but it was promptly ejected without any instances of aspiration. Impression: Functional swallow but if pt is talking while chewing solids or not sitting upright with liquids, aspiration risk increases Recommendation: Level 5 minced and moist diet with regular liquids,
[2024-12-30] MEDS: levoFLOXacin 750 MG/D5W 150 ML 750 MG/150 ML BAG 100 MG IVPB (15:06)
[2024-12-30] MEDS: SENNA/DOCUSATE SODIUM TABLET 1 TAB PO (20:32)
[2024-12-30] MEDS: ACETAMINOPHEN 325 MG TABLET 650 MG PO (20:32)
[2024-12-31] VITALS (13 sets, daily range): BP systolic 121–166; BP diastolic 73–86; PULSE 59–85; RESP 16–20; TEMP 36.3–36.8; O2SAT 95–100
[2024-12-31] MEDS: metroNIDAZOLE 500 MG TABLET PO ×3 (05:21→21:09)
[2024-12-31 05:32] LABS: Hematocrit 25.2 % (42.0-52.0); Hemoglobin 8.5 g/dL (14.0-18.0); Mean Corpuscular HGB Conc 33.7 g/dl (32-36); Mean Corpuscular Hemoglobin 32.4 pg (26-34); Mean Corpuscular Volume 96.2 fl (80-100); Mean Platelet Volume 9.1 fl (7.4-10.4); Platelet Count Result 193 k/mm3 (150-375); Red Blood Count 2.62 M/mm3 (4.6-6.20); White Blood Count 8.1 K/mm3 (4.5-10.0)
[2024-12-31 05:45] LABS: Alanine Aminotransferase 22 U/L (6-50); Albumin Level 3.4 g/dL (3.5-5.1); Alkaline Phosphatase 83 U/L (38-126); Anion Gap 9 mmol/L (4-12); Aspartate Amino Transferase 29 U/L (17-59); Bilirubin,Total 0.8 mg/dL (0.2-1.3); Blood Urea Nitrogen 16 mg/dL (9-20); Calcium 8.5 mg/dL (8.4-10.2); Carbon Dioxide 30 mmol/L (22-30); Chloride 99 mmol/L (98-107); Estimated CRCL calculation 49 ml/min; Estimated Glomerular Filt Rate 56; Glucose 90 mg/dL (65-110); Potassium 3.3 mmol/L (3.4-5.0); Sodium 138 mmol/L (137-145)
[2024-12-31] MEDS: CENTRAL LINE FLUSH 10 ML IV PUSH ×3 (06:51→21:09)
[2024-12-31] MEDS: amLODIPine BESYLATE 10 MG TABLET PO (09:43)
[2024-12-31] MEDS: ENOXAPARIN 40 MG/0.4 ML SYRINGE SUB-Q (09:43)
[2024-12-31] MEDS: POTASSIUM CHLORIDE 10 MEQ ER TABLET PO (09:43)
[2024-12-31] MEDS: THIAMINE HCL 100 MG TABLET PO (09:43)
[2024-12-31] MEDS: PANTOPRAZOLE SODIUM IV 40 MG VIAL IV PUSH (09:43)
[2024-12-31] MEDS: FOLIC ACID 1 MG TABLET PO (09:43)
[2024-12-31] MEDS: METOPROLOL TARTRATE 50 MG TAB PO ×2 (09:43→20:30)
[2024-12-31] MEDS: hydrALAZINE 12.5 MG TABLET PO ×4 (09:43→20:30)
[2024-12-31] MEDS: polyethylene glycoL 3350 17 GM POWD.PACK PO (09:43)
[2024-12-31] MEDS: hydroCHLOROthiazide 25 MG TABLET PO (09:43)
--- NOTE | 2024-12-31 12:22 | P.PNIM_ITS ---
Progress Note: A&P Assessment and Plan (1) Acute respiratory failure: Code(s): J96.00 - Acute respiratory failure, unspecified whether with hypoxia or hypercapnia Status: Acute Assessment and Plan: 12/12: Acute respiratory failure/impending respiratory failure likely related to altered mentation secondary to alcohol withdrawal, respiratory distress due to pneumonia and influenza A, COPD/emphysema -12/12: Intubated in the ICU -currently on CMV mode of ventilation, peep of 8 and 30% FiO2, saturating 90 91% -continue bronchodilators given history of COPD -Sedated with propofol and fentanyl infusion, maintain RASS of 0 to -2, daily SBT and SAT -12/15: chest x-rays have not been improving so opted to obtain chest CT which is as under -12/16: Consulted pulmonology and patient had bronchoscopy. Culture sent -antibiotic and antiviral as below -sedation holiday was performed and patient placed on 5/8 PSV but patient became tachypneic with respiratory rate in 30s and failed his trial. -12/18 chest x-ray reviewed and appears worse. For further fluids - 12/18 for weaning trial as chest x-ray appears worsened patient has increased oxygen requirement -12/19 sedation holiday was performed patient not a candidate for weaning trial due to tachypnea tachycardia on loading sedation IV Lasix 12/20 chest x-ray pending, sedation holiday ordered. Patient was placed on PSV 5/8 she tolerated for only little bit of time and then became tachypneic with respiratory rate up to 40s. Patient was placed back on CMV and restarted on low-dose sedatives 12/21 sedation holiday was performed will attempt PSV weaning trial again. Lasix IV x1 today 12/22 Lasix IV give 5/8 PSV SBT done for more than 1 hour. RSBI, ABGI and Vitals acceptable. Patient is quite weak but does have a decent cough reflex. Pt awake and fo llowing commands. Will extubate and monitor. NPO for now. Bipap PRN at night. If he gets reintubate he will need tracheostomy 12/23 doing well and on nasal cannula. Continue supplemental oxygen. Continue incentive spirometry. Up in chair 12/25: I assumed care today. Patient is currently extubated on and on nasal cannula 3 L. 12/26: Will consider CT scan head tomorrow, if no improvement. 12/28: CT and MRI brain shows no acute abnormalities. Ordered blood culture. Chest x-ray shows pneumonia started Levaquin. 12/30 day 4/7 on Levaquin and 2/7 on flagyl continue -12/15: Repeat CT chest: IMPRESSION: Endotracheal tube, left IJ central venous line, NG tube, all in good position. Pulmonary opacities likely representing worsening atypical/viral infection. Smal l cavitary lesions noted in the right upper lobe. A component of aspiration could be considered given the presence of airway secretions/debris. Trace bilateral pleural effusions. Ascending aortic ectasia (2) Multifocal pneumonia: Code(s): J18.9 - Pneumonia, unspecified organism Status: Acute Assessment and Plan: 12/10: CT chest PE protocol was negative for PE, but showed bilateral multifocal pneumonia -chest x-ray also showed bilateral multifocal pneumonia -patient tested positive for influenza A 12/10: Blood cultures negative x2 12/12: Sputum cultures are negative 12/12: Nasal MRSA not detected Completed course meropenem Completed doxycycline, Discontinue vancomycin (12/19) Completed course off Tamiflu 12/28: Started Levaquin 12/30 continue levaquin and flagyl (3) COPD with emphysema: Code(s): J43.9 - Emphysema, unspecified Status: Acute Assessment and Plan: History of COPD/emphysema See above (4) SVT (supraventricular tachycardia): Code(s): I47.10 - Supraventricular tachycardia, unspecified Status: Acute Assessment and Plan: Patient went into SVT on admission, appreciate cardiology evaluation and recomme ndation likely related to respiratory distress from pneumonia, influenza, alcohol withdrawal. -patient was started on metoprolol per tube by cardiology (12/13) -currently in sinus rhythm, rate controlled, patient does have intermittent SVTs which is short-lived -continue beta-shannan . Echo Summary 1. Complete two-dimensional, color flow and Doppler transthoracic echocardiogram is performed. 2. Technically difficult study with limited views as patient is supine, confused, and restrained with mittens. 3. Overall does appear to have normal biventricular size and systolic function . 4. There does not appear to be any significant valvular disease. (5) Alcohol withdrawal: Code(s): F10.939 - Alcohol use, unspecified with withdrawal, unspecified Status: Acute Assessment and Plan: Patient does have a history of significant alcohol use -in the IMU he had elevated CIWA score and received multiple doses of Ativan -12/12: patient was confused, tremulous, and was in alcohol withdrawal -continue thiamine and folic acid Precedex weaned off -12/25: Will do as needed Ativan if patient is anxious (6) Electrolyte abnormality: Code(s): E87.8 - Other disorders of electrolyte and fluid balance, not elsewhere classified Status: Acute Assessment and Plan: Potassium replacement ordered (7) MICHELLE (acute kidney injury): Code(s): N17.9 - Acute kidney failure, unspecified Status: Acute Assessment and Plan: 12/17 Increase in creatinine as compared to yesterday. Patient was given IV albumin and IV fluids Discontinued vancomycin Monitor urine output electrolytes and creat (8) Ileus: Code(s): K56.7 - Ileus, unspecified Status: Acute Assessment and Plan: Decreased bowel sounds and slight abdominal distension on exam KUB does showed normal bowel gas pattern at this time Patient was tolerating tube feeding and had bowel movements. Now off of tube feed post extubate Continue MiraLax, add Dulcolax suppository Improved. Monitor (9) Hypertension: Code(s): I10 - Essential (primary) hypertension Status: Acute Assessment and Plan: Increase dose of metoprolol and add Norvasc and hydralazine (10) Metabolic encephalopathy: Code(s): G93.41 - Metabolic encephalopathy Status: Acute Assessment and Plan: Normal TSH and B12, RPR negative MRI brain and CT scan brain shows no acute abnormalities neurology consulted as patient is still A x O1 LP pending neuro eval Plan DVT prophylaxis: Lovenox Stress ulcer prophylaxis: Protonix Nutrition: Diet ordered Code Status: Full code Speech therapy , PT OT Subjective Date/time seen: 12/31/24 12:22 Interval history: Patient comfortable at bedside, however alert and oriented x1. Patient is noted to be Review of Systems Review of Systems: Cough for 3+ months, patient is a very poor historian and can not really contribute in a meaningful way to history taking. All systems reviewed & are unremarkable except as noted in HPI and below (HPI) ROS unobtainable: Yes unobtainable due to endotracheal tube, unobtainab le due to medical condition and unobtainable due to mental status Exam Narrative: General: I alert awake and in no acute distress HEENT:? Pupils equal and reactive, sclera is clear Neck:? Supple Respiratory:? Clear breath sounds bilaterally, decreased at bases Cardiac:? S1-S2 is normal, regular rate and rhythm Abdomen:? Soft, nontender, mildly distended, absent bowel sound Extremities:? No edema, palpable pedal pulses Neuro:? AO x2, moves all extremities and follows command Skin:? Warm and dry, bruising noted on bilateral upper and lower extremity Psych:? Normal speech and affect Const: General: comfortable, no acute distress, well developed, alert, awake, ill appearing acutely and underweight Nutritional Appearance: underweight Orientation/consciousness: patient oriented x3 Other: Patient looks older than stated age, having bouts of cough HENMT: Head: normal to inspection, normocephalic and atraumatic Ears: hearing grossly normal bilaterally Face/Nose/Sinus: normal facial exam Face and sinus: normal facial exam Mouth: Yes dry mucous membranes Other: OETT in place Eyes: General: appearance normal, both eyes and all related structures Sclera: sclerae normal Pupils: Equal, round and reactive pupils present EOM: EOMs intact bilaterally Neck: Neck: full ROM, no lymphadenopathy and no JVD Thyroid: thyroid normal Lymphatic: no lymphadenopathy noted Chest: Chest palpation & inspection: normal inspection of the chest Resp: Effort & Inspection: normal respiratory effort, able to speak in complete sentences, Actively coughing and tachypneic Auscultation: crackles, wheezes and diminished lung sounds Other: On mechanical ventilation Cardio: Jugular venous distension: no JVD Rate: tachycardic Rhythm: abnormal rhythm irregularly irregular Heart sounds: S1 normal heart sound present and S2 normal heart sound present GI: Inspection: normal to inspection : General: Yes deferred Skin: General skin exam: normal color Rashes: no rashes Wounds: no wounds Neuro: General: patient oriented x3 and CN's II-XI intact bilaterally Cranial nerves: Yes CN's II-XII intact bilaterally and Yes Equal, round and reactive pupils present Cognition (Neuro): normal cognition Speech: normal speech Gait exam (Neuro): Normal gait present Motor exam (neuro): 5/5 motor strength present throughout Other: sedated iwth propofol and fentanyl Extrem: General: normal to inspection, full ROM, no joint enlargement and no pedal edema Psych: Other: Sedated Objective Data Vital Signs Vital Signs: Vital Signs - 24 hr 12/30/24 12:43 12/30/24 13:37 12/30/24 16:00 Temperature 98.2 F 97.7 F Pulse Rate 67 67 72 Respiratory Rate 18 18 Blood Pressure 142/83 H 129/74 Pulse Oximetry 99 100 Oxygen Delivery Oxygen Flow Rate Fraction of Inspired Oxygen 12/30/24 16:00 12/30/24 18:49 12/30/24 19:22 Temperature 97.3 F L 98.1 F Pulse Rate 68 78 73 Respiratory Rate 18 18 18 Blood Pressure 144/83 H 152/79 H 133/88 Pulse Oximetry 97 98 99 Oxygen Delivery Oxygen Flow Rate Fraction of Inspired Oxygen 12/30/24 19:55 12/30/24 20:00 12/31/24 00:00 Temperature 97.7 F Pulse Rate 73 60 63 Respiratory Rate 18 18 Blood Pressure 143/80 H Pulse Oximetry 99 100 Oxygen Delivery Nasal Cannula Oxygen Flow Rate 2 Fraction of Inspired Oxygen 32 12/31/24 00:00 12/31/24 04:00 12/31/24 04:00 Temperature 98.1 F Pulse Rate 72 72 73 Respiratory Rate 18 Blood Pressure 166/83 H Pulse Oximetry 100 Oxygen Delivery Oxygen Flow Rate Fraction of Inspired Oxygen 12/31/24 08:00 12/31/24 09:40 12/31/24 09:43 Temperature 97.7 F 97.7 F Pulse Rate 85 77 78 Respiratory Rate 18 18 Blood Pressure 122/86 160/80 H Pulse Oximetry 95 100 Oxygen Delivery Oxygen Flow Rate Fraction of Inspired Oxygen 12/31/24 09:43 12/31/24 09:43 12/31/24 11:52 Temperature 97.6 F Pulse Rate 65 59 L Respiratory Rate 18 Blood Pressure 132/86 Pulse Oximetry 100 100 Oxygen Delivery Nasal Cannula Oxygen Flow Rate 2 Fraction of Inspired Oxygen 12/31/24 12:00 Temperature Pulse Rate 60 Respiratory Rate Blood Pressure Pulse Oximetry Oxygen Delivery Oxygen Flow Rate Fraction of Inspired Oxygen Intake/Output Intake/Output: Intake & Output 12/28/24 12/29/24 12/30/24 12/31/24 23:59 23:59 23:59 23:59 Intake Total 4286 537 5446 410 Output Total 0969 2998 0593 800 Balance -265 -3005 -695 -390 Meds/Results Medications: Active Medications Generic Name Dose Route Start Last Admin Trade Name Freq PRN Reason Stop Dose Admin Acetaminophen 650 mg 12/11/24 07:58 12/30/24 20:32 Acetaminophen 325 Mg Tablet PO 650 mg Q4H PRN Administration Mild Pain (1-3) or Fever Albuterol/Ipratropium 3 ml 12/23/24 07:50 12/23/24 08:11 Ipratropium 0.5 Mg/Albuterol Sulfate 2.5 Mg Ampul.Neb 3 Ml INHALATION 3 ml Q6HRT PRN Administration wheezing Alteplase, Recombinant 2 mg 12/16/24 09:59 12/16/24 16:31 Alteplase 2 Mg Vial (Cathflo) IV PUSH 2 mg ONCE PRN Administration Line Occlusion Amlodipine Besylate 10 mg 12/24/24 09:00 12/31/24 09:43 Amlodipine Besylate 10 Mg Tablet PO 10 mg DAILY SANTIAGO Administration Bisacodyl 10 mg 12/19/24 08:26 12/19/24 09:19 Bisacodyl 10 Mg Suppository RECTAL 10 mg QAM PRN Administration Constipation Dextrose 12.5 gm 12/11/24 11:48 Dextrose 50% 25 Gm/50 Ml Syringe IV PUSH PRN PRN Hypoglycemia Protocol Enoxaparin Sodium 40 mg 12/13/24 09:00 12/31/24 09:43 Enoxaparin 40 Mg/0.4 Ml Syringe SUB-Q 40 mg DAILY SANTIAGO Administration Folic Acid 1 mg 12/24/24 09:00 12/31/24 09:43 Folic Acid 1 Mg Tablet PO 1 mg DAILY SANTIAGO Administration Glucagon 1 mg 12/11/24 11:48 Glucagon For Inj 1 Mg Vial IM PRN PRN Hypoglycemia Protocol Glucose 15 gm 12/11/24 11:48 Glucose Oral Gel 15 Gm Of Glucse In 37.5 Gm Tube PO PRN PRN Hypoglycemia Protocol Hydralazine HCl 10 mg 12/25/24 06:04 12/30/24 11:17 Hydralazine Hcl 20 Mg/Ml Vial IV PUSH 10 mg Q8H PRN Administration HIGH BP SYSTOLIC >150 Hydralazine HCl 12.5 mg 12/29/24 17:00 12/31/24 09:43 Hydralazine 12.5 Mg Tablet PO 12.5 mg QID SANTIAGO Administration Hydrochlorothiazide 25 mg 12/30/24 09:00 12/31/24 09:43 Hydrochlorothiazide 25 Mg Tablet PO 25 mg DAILY SANTIAGO Administration Dextrose 1,000 mls @ 100 mls/hr 12/11/24 11:48 Dextrose 5% 1,000 Ml IVPB PRN PRN Hypoglycemia Protocol Levofloxacin/Dextrose 750 mg in 150 mls @ 100 mls/hr 12/28/24 16:00 12/30/24 16:46 Levaquin 750 Mg/D5w 150 Ml IVPB Infused Q24H SANTIAGO Infusion Labetalol HCl 20 mg 12/23/24 07:50 12/28/24 19:54 Labetalol Hcl Inj 100 Mg/20 Ml Vial IV PUSH 20 mg Q4H PRN Administration SBP > 160 and HR> 60 -1st choice Metoprolol Tartrate 5 mg 12/24/24 07:57 12/27/24 06:01 Metoprolol Tartrate Inj 5 Mg/5 Ml Vial IV PUSH 5 mg Q4H PRN Administration HR > 120 Metoprolol Tartrate 50 mg 12/24/24 09:00 12/31/24 09:43 Metoprolol Tartrate 50 Mg Tab PO 50 mg Q12HR SANTIAGO Administration Metronidazole 500 mg 12/30/24 14:00 12/31/24 05:21 Metronidazole 500 Mg Tablet PO 500 mg Q8HR SANTIAGO Administration Ondansetron HCl 4 mg 12/11/24 04:19 Ondansetron Inj 4 Mg/2 Ml Vial IV PUSH Q6H PRN Nausea And Vomiting Pantoprazole Sodium 40 mg 12/13/24 09:00 12/31/24 09:43 Pantoprazole Sodium Iv 40 Mg Vial IV PUSH 40 mg QAM SANTIAGO Administration Polyethylene Glycol 17 gm 12/16/24 10:22 12/31/24 09:43 Polyethylene Glycol 3350 17 Gm Powd.Pack PO 17 gm QAM SANTIAGO Administration Potassium Chloride 10 meq 12/28/24 08:00 12/31/24 09:43 Potassium Chloride 10 Meq Er Tablet PO 10 meq DAILY@0800 SANTIAGO Administration Senna/Docusate Sodium 1 tab 12/16/24 21:00 12/30/24 20:32 Senna/Docusate Sodium Tablet PO 1 tab HS SANTIAGO Administration Sodium Chloride 20 ml 12/12/24 11:00 Central Line Flush IV PUSH PRN PRN after blood draws Sodium Chloride 10 ml 12/12/24 11:00 Central Line Flush IV PUSH PRN PRN with TPN bag changes Sodium Chloride 10 ml 12/13/24 14:00 12/31/24 06:51 Central Line Flush IV PUSH 10 ml Q8HR SANTIAGO Administration Sodium Chloride 20 ml 12/13/24 12:24 12/23/24 05:38 Central Line Flush IV PUSH 20 ml PRN PRN Administration after blood draws Thiamine HCl 100 mg 12/24/24 09:00 12/31/24 09:43 Thiamine Hcl 100 Mg Tablet PO 100 mg QAM SANTIAGO Administration Radiology Results: ITS Impressions Chest CTA 12/10/24 19:15 IMPRESSION: No pulmonary embolism. No aortic dissection. Multifocal pneumonia. Chest CT 12/15/24 16:37 IMPRESSION: Endotracheal tube, left IJ central venous line, NG tube, all in good position. Pulmonary opacities likely representing worsening atypical/viral infection. Small cavitary lesions noted in the right upper lobe. A component of aspiration could be considered given the presence of airway secretions/debris. Trace bilateral pleural effusions. Ascending aortic ectasia. Abdomen X-Ray 12/18/24 14:59 IMPRESSION: 1. Normal bowel gas pattern. Head CT 12/27/24 22:02 IMPRESSION: 1. Normal aging brain. Chest X-Ray 12/28/24 12:54 IMPRESSION: 1. Stable diffuse lung disease, consistent with pneumonia. Brain MRI 12/28/24 12:55 IMPRESSION: 1. Normal aging brain. Modified Barium Swallow 12/30/24 15:04 IMPRESSION: Laryngeal penetration without aspiration. Please correlate with speech pathologist findings and specific feeding recommendations. Labs Labs: Laboratory Results - last 24 hr 12/31/24 05:23 WBC 8.1 RBC 2.62 L Hgb 8.5 L Hct 25.2 L MCV 96.2 MCH 32.4 MCHC 33.7 RDW 13.0 Plt Count 193 MPV 9.1 Sodium 138 Potassium 3.3 L Chloride 99 Carbon Dioxide 30 Anion Gap 9 BUN 16 Creatinine 1.30 Estim Creat Clear Calc 49 Estimated GFR 56 L Glucose 90 Calcium 8.5 Total Bilirubin 0.8 AST 29 ALT 22 Alkaline Phosphatase 83 Total Protein 7.0 Albumin 3.4 L Quality VTE Prophylaxis VTE prophylaxis: pharmacologic ordered
[2024-12-31] MEDS: DOXYCYCLINE HYCLATE 100 MG TABLET PO ×2 (16:18→20:30)
[2024-12-31] MEDS: CEFDINIR 300 MG CAPSULE PO ×2 (16:18→20:30)
[2024-12-31] MEDS: SENNA/DOCUSATE SODIUM TABLET 1 TAB PO (20:30)
[2025-01-01] VITALS (14 sets, daily range): BP systolic 117–137; BP diastolic 70–84; PULSE 49–75; RESP 14–18; TEMP 36.3–36.7; O2SAT 94–100
[2025-01-01] MEDS: metroNIDAZOLE 500 MG TABLET PO ×3 (05:21→21:02)
[2025-01-01] MEDS: CENTRAL LINE FLUSH 10 ML IV PUSH ×3 (05:21→21:02)
[2025-01-01] MEDS: PANTOPRAZOLE SODIUM IV 40 MG VIAL IV PUSH (08:21)
[2025-01-01] MEDS: DOXYCYCLINE HYCLATE 100 MG TABLET PO ×2 (08:21→20:32)
[2025-01-01] MEDS: ENOXAPARIN 40 MG/0.4 ML SYRINGE SUB-Q (08:21)
[2025-01-01] MEDS: METOPROLOL TARTRATE 50 MG TAB PO ×2 (08:21→20:32)
[2025-01-01] MEDS: POTASSIUM CHLORIDE 10 MEQ ER TABLET PO (08:21)
[2025-01-01] MEDS: hydrALAZINE 12.5 MG TABLET PO ×4 (08:21→20:32)
[2025-01-01] MEDS: CEFDINIR 300 MG CAPSULE PO ×2 (08:21→20:32)
[2025-01-01] MEDS: THIAMINE HCL 100 MG TABLET PO (08:21)
[2025-01-01] MEDS: amLODIPine BESYLATE 10 MG TABLET PO (08:21)
[2025-01-01] MEDS: FOLIC ACID 1 MG TABLET PO (08:21)
[2025-01-01] MEDS: hydroCHLOROthiazide 25 MG TABLET PO (08:21)
[2025-01-01] MEDS: polyethylene glycoL 3350 17 GM POWD.PACK PO (08:22)
--- NOTE | 2025-01-01 10:44 | P.PNIM_ITS ---
Progress Note: A&P Assessment and Plan (1) Acute respiratory failure: Code(s): J96.00 - Acute respiratory failure, unspecified whether with hypoxia or hypercapnia Status: Acute Assessment and Plan: 12/12: Acute respiratory failure/impending respiratory failure likely related to altered mentation secondary to alcohol withdrawal, respiratory distress due to pneumonia and influenza A, COPD/emphysema -12/12: Intubated in the ICU -currently on CMV mode of ventilation, peep of 8 and 30% FiO2, saturating 90 91% -continue bronchodilators given history of COPD -Sedated with propofol and fentanyl infusion, maintain RASS of 0 to -2, daily SBT and SAT -12/15: chest x-rays have not been improving so opted to obtain chest CT which is as under -12/16: Consulted pulmonology and patient had bronchoscopy. Culture sent -antibiotic and antiviral as below -sedation holiday was performed and patient placed on 5/8 PSV but patient became tachypneic with respiratory rate in 30s and failed his trial. -12/18 chest x-ray reviewed and appears worse. For further fluids - 12/18 for weaning trial as chest x-ray appears worsened patient has increased oxygen requirement -12/19 sedation holiday was performed patient not a candidate for weaning trial due to tachypnea tachycardia on loading sedation IV Lasix 12/20 chest x-ray pending, sedation holiday ordered. Patient was placed on PSV 5/8 she tolerated for only little bit of time and then became tachypneic with respiratory rate up to 40s. Patient was placed back on CMV and restarted on low-dose sedatives 12/21 sedation holiday was performed will attempt PSV weaning trial again. Lasix IV x1 today 12/22 Lasix IV give 5/8 PSV SBT done for more than 1 hour. RSBI, ABGI and Vitals acceptable. Patient is quite weak but does have a decent cough reflex. Pt awake and fo llowing commands. Will extubate and monitor. NPO for now. Bipap PRN at night. If he gets reintubate he will need tracheostomy 12/23 doing well and on nasal cannula. Continue supplemental oxygen. Continue incentive spirometry. Up in chair 12/25: I assumed care today. Patient is currently extubated on and on nasal cannula 3 L. 12/26: Will consider CT scan head tomorrow, if no improvement. 12/28: CT and MRI brain shows no acute abnormalities. Ordered blood culture. Chest x-ray shows pneumonia started Levaquin. 12/30 day 4/7 on Levaquin and 2/7 on flagyl continue -12/15: Repeat CT chest: IMPRESSION: Endotracheal tube, left IJ central venous line, NG tube, all in good position. Pulmonary opacities likely representing worsening atypical/viral infection. Smal l cavitary lesions noted in the right upper lobe. A component of aspiration could be considered given the presence of airway secretions/debris. Trace bilateral pleural effusions. Ascending aortic ectasia (2) Multifocal pneumonia: Code(s): J18.9 - Pneumonia, unspecified organism Status: Acute Assessment and Plan: 12/10: CT chest PE protocol was negative for PE, but showed bilateral multifocal pneumonia -chest x-ray also showed bilateral multifocal pneumonia -patient tested positive for influenza A 12/10: Blood cultures negative x2 12/12: Sputum cultures are negative 12/12: Nasal MRSA not detected Completed course meropenem Completed doxycycline, Discontinue vancomycin (12/19) Completed course off Tamiflu 12/28: Started Levaquin 12/30 continue levaquin and flagyl (3) COPD with emphysema: Code(s): J43.9 - Emphysema, unspecified Status: Acute Assessment and Plan: History of COPD/emphysema See above (4) SVT (supraventricular tachycardia): Code(s): I47.10 - Supraventricular tachycardia, unspecified Status: Acute Assessment and Plan: Patient went into SVT on admission, appreciate cardiology evaluation and recomme ndation likely related to respiratory distress from pneumonia, influenza, alcohol withdrawal. -patient was started on metoprolol per tube by cardiology (12/13) -currently in sinus rhythm, rate controlled, patient does have intermittent SVTs which is short-lived -continue beta-shannan . Echo Summary 1. Complete two-dimensional, color flow and Doppler transthoracic echocardiogram is performed. 2. Technically difficult study with limited views as patient is supine, confused, and restrained with mittens. 3. Overall does appear to have normal biventricular size and systolic function . 4. There does not appear to be any significant valvular disease. (5) Alcohol withdrawal: Code(s): F10.939 - Alcohol use, unspecified with withdrawal, unspecified Status: Acute Assessment and Plan: Patient does have a history of significant alcohol use -in the IMU he had elevated CIWA score and received multiple doses of Ativan -12/12: patient was confused, tremulous, and was in alcohol withdrawal -continue thiamine and folic acid Precedex weaned off -12/25: Will do as needed Ativan if patient is anxious (6) Electrolyte abnormality: Code(s): E87.8 - Other disorders of electrolyte and fluid balance, not elsewhere classified Status: Acute Assessment and Plan: Potassium replacement ordered (7) MICHELLE (acute kidney injury): Code(s): N17.9 - Acute kidney failure, unspecified Status: Acute Assessment and Plan: 12/17 Increase in creatinine as compared to yesterday. Patient was given IV albumin and IV fluids Discontinued vancomycin Monitor urine output electrolytes and creat resolved (8) Ileus: Code(s): K56.7 - Ileus, unspecified Status: Acute Assessment and Plan: Decreased bowel sounds and slight abdominal distension on exam KUB does showed normal bowel gas pattern at this time Patient was tolerating tube feeding and had bowel movements. Now off of tube feed post extubate Continue MiraLax, add Dulcolax suppository resolved (9) Hypertension: Code(s): I10 - Essential (primary) hypertension Status: Acute Assessment and Plan: Increase dose of metoprolol and add Norvasc and hydralazine (10) Metabolic encephalopathy: Code(s): G93.41 - Metabolic encephalopathy Status: Acute Assessment and Plan: Normal TSH and B12, RPR negative MRI brain and CT scan brain shows no acute abnormalities resolved patient alert and oriented today x3 Plan DVT prophylaxis: Lovenox Stress ulcer prophylaxis: Protonix Nutrition: Diet ordered Code Status: Full code Speech therapy , PT OT awaiting placement Subjective Date/time seen: 01/01/25 10:44 Interval history: Patient comfortable at bedside, however alert and oriented x3. Now awaiting CC to work out placement Review of Systems Review of Systems: Cough for 3+ months, patient is a very poor historian and can not really contribute in a meaningful way to history taking. All systems reviewed & are unremarkable except as noted in HPI and below (HPI) ROS unobtainable: Yes unobtainable due to endotracheal tube, un obtainable due to medical condition and unobtainable due to mental status Exam Narrative: General: I alert awake and in no acute distress HEENT:? Pupils equal and reactive, sclera is clear Neck:? Supple Respiratory:? Clear breath sounds bilaterally, decreased at bases Cardiac:? S1-S2 is normal, regular rate and rhythm Abdomen:? Soft, nontender, mildly distended, absent bowel sound Extremities:? No edema, palpable pedal pulses Neuro:? AO x2, moves all extremities and follows command Skin:? Warm and dry, bruising noted on bilateral upper and lower extremity Psych:? Normal speech and affect Const: General: comfortable, no acute distress, well developed, alert, awake, ill appearing acutely and underweight Nutritional Appearance: underweight Orientation/consciousness: patient oriented x3 Other: Patient looks older than stated age, having bouts of cough HENMT: Head: normal to inspection, normocephalic and atraumatic Ears: hearing grossly normal bilaterally Face/Nose/Sinus: normal facial exam Face and sinus: normal facial exam Mouth: Yes dry mucous membranes Other: OETT in place Eyes: General: appearance normal, both eyes and all related structures Sclera: sclerae normal Pupils: Equal, round and reactive pupils present EOM: EOMs intact bilaterally Neck: Neck: full ROM, no lymphadenopathy and no JVD Thyroid: thyroid normal Lymphatic: no lymphadenopathy noted Chest: Chest palpation & inspection: normal inspection of the chest Resp: Effort & Inspection: normal respiratory effort, able to speak in complete sentences, Actively coughing and tachypneic Auscultation: crackles, wheezes and diminished lung sounds Other: On mechanical ventilation Cardio: Jugular venous distension: no JVD Rate: tachycardic Rhythm: abnormal rhythm irregularly irregular Heart sounds: S1 normal heart sound present and S2 normal heart sound present GI: Inspection: normal to inspection : General: Yes deferred Skin: General skin exam: normal color Rashes: no rashes Wounds: no wounds Neuro: General: patient oriented x3 and CN's II-XI intact bilaterally Cranial nerves: Yes CN's II-XII intact bilaterally and Yes Equal, round and reactive pupils present Cognition (Neuro): normal cognition Speech: normal speech Gait exam (Neuro): Normal gait present Motor exam (neuro): 5/5 motor strength present throughout Other: sedated iwth propofol and fentanyl Extrem: General: normal to inspection, full ROM, no joint enlargement and no pedal edema Psych: Other: Sedated Objective Data Vital Signs Vital Signs: Vital Signs - 24 hr 12/31/24 11:52 12/31/24 12:00 12/31/24 12:55 Temperature 97.6 F 97.5 F L Pulse Rate 59 L 60 68 Respiratory Rate 18 16 Blood Pressure 132/86 142/74 H Pulse Oximetry 100 100 Oxygen Delivery Oxygen Flow Rate 12/31/24 16:00 12/31/24 16:15 12/31/24 19:58 Temperature 97.3 F L 98.2 F Pulse Rate 61 63 69 Respiratory Rate 18 20 Blood Pressure 121/73 129/75 Pulse Oximetry 97 97 Oxygen Delivery Oxygen Flow Rate 12/31/24 20:00 12/31/24 20:30 12/31/24 20:30 Temperature Pulse Rate 70 76 Respiratory Rate Blood Pressure Pulse Oximetry 97 Oxygen Delivery Nasal Cannula Oxygen Flow Rate 2 01/01/25 00:00 01/01/25 00:04 01/01/25 04:00 Temperature 97.9 F 97.9 F Pulse Rate 63 71 63 Respiratory Rate 18 18 Blood Pressure 132/80 137/79 Pulse Oximetry 99 98 Oxygen Delivery Oxygen Flow Rate 01/01/25 04:42 01/01/25 08:00 01/01/25 08:21 Temperature 97.6 F Pulse Rate 49 L 73 65 Respiratory Rate 18 Blood Pressure 124/84 Pulse Oximetry 100 Oxygen Delivery Oxygen Flow Rate Intake/Output Intake/Output: Intake & Output 12/29/24 12/30/24 12/31/24 01/01/25 23:59 23:59 23:59 23:59 Intake Total 870 1280 1010 300 Output Total 3875 1975 1350 900 [facility] -[phone] [phone] -340 -600 Meds/Results Medications: Active Medications Generic Name Dose Route Start Last Admin Trade Name Freq PRN Reason Stop Dose Admin Acetaminophen 650 mg 12/11/24 07:58 12/30/24 20:32 Acetaminophen 325 Mg Tablet PO 650 mg Q4H PRN Administration Mild Pain (1-3) or Fever Albuterol/Ipratropium 3 ml 12/23/24 07:50 12/23/24 08:11 Ipratropium 0.5 Mg/Albuterol Sulfate 2.5 Mg Ampul.Neb 3 Ml INHALATION 3 ml Q6HRT PRN Administration wheezing Alteplase, Recombinant 2 mg 12/16/24 09:59 12/16/24 16:31 Alteplase 2 Mg Vial (Cathflo) IV PUSH 2 mg ONCE PRN Administration Line Occlusion Amlodipine Besylate 10 mg 12/24/24 09:00 01/01/25 08:21 Amlodipine Besylate 10 Mg Tablet PO 10 mg DAILY SANTIAGO Administration Bisacodyl 10 mg 12/19/24 08:26 12/19/24 09:19 Bisacodyl 10 Mg Suppository RECTAL 10 mg QAM PRN Administration Constipation Cefdinir 300 mg 12/31/24 14:30 01/01/25 08:21 Cefdinir 300 Mg Capsule PO 01/03/25 23:59 300 mg Q12HR SANTIAGO Administration Dextrose 12.5 gm 12/11/24 11:48 Dextrose 50% 25 Gm/50 Ml Syringe IV PUSH PRN PRN Hypoglycemia Protocol Doxycycline Hyclate 100 mg 12/31/24 14:30 01/01/25 08:21 Doxycycline Hyclate 100 Mg Tablet PO 01/01/25 21:01 100 mg Q12HR SANTIAGO Administration Enoxaparin Sodium 40 mg 12/13/24 09:00 01/01/25 08:21 Enoxaparin 40 Mg/0.4 Ml Syringe SUB-Q 40 mg DAILY SANTIAGO Administration Folic Acid 1 mg 12/24/24 09:00 01/01/25 08:21 Folic Acid 1 Mg Tablet PO 1 mg DAILY SANTIAGO Administration Glucagon 1 mg 12/11/24 11:48 Glucagon For Inj 1 Mg Vial IM PRN PRN Hypoglycemia Protocol Glucose 15 gm 12/11/24 11:48 Glucose Oral Gel 15 Gm Of Glucse In 37.5 Gm Tube PO PRN PRN Hypoglycemia Protocol Hydralazine HCl 10 mg 12/25/24 06:04 12/30/24 11:17 Hydralazine Hcl 20 Mg/Ml Vial IV PUSH 10 mg Q8H PRN Administration HIGH BP SYSTOLIC >150 Hydralazine HCl 12.5 mg 12/29/24 17:00 01/01/25 08:21 Hydralazine 12.5 Mg Tablet PO 12.5 mg QID SANTIAGO Administration Hydrochlorothiazide 25 mg 12/30/24 09:00 01/01/25 08:21 Hydrochlorothiazide 25 Mg Tablet PO 25 mg DAILY SANTIAGO Administration Dextrose 1,000 mls @ 100 mls/hr 12/11/24 11:48 Dextrose 5% 1,000 Ml IVPB PRN PRN Hypoglycemia Protocol Labetalol HCl 20 mg 12/23/24 07:50 12/28/24 19:54 Labetalol Hcl Inj 100 Mg/20 Ml Vial IV PUSH 20 mg Q4H PRN Administration SBP > 160 and HR> 60 -1st choice Metoprolol Tartrate 5 mg 12/24/24 07:57 12/27/24 06:01 Metoprolol Tartrate Inj 5 Mg/5 Ml Vial IV PUSH 5 mg Q4H PRN Administration HR > 120 Metoprolol Tartrate 50 mg 12/24/24 09:00 01/01/25 08:21 Metoprolol Tartrate 50 Mg Tab PO 50 mg Q12HR SANTIAGO Administration Metronidazole 500 mg 12/30/24 14:00 01/01/25 05:21 Metronidazole 500 Mg Tablet PO 01/03/25 23:59 500 mg Q8HR SANTIAGO Administration Ondansetron HCl 4 mg 12/11/24 04:19 Ondansetron Inj 4 Mg/2 Ml Vial IV PUSH Q6H PRN Nausea And Vomiting Pantoprazole Sodium 40 mg 12/13/24 09:00 01/01/25 08:21 Pantoprazole Sodium Iv 40 Mg Vial IV PUSH 40 mg QAM SANTIAGO Administration Polyethylene Glycol 17 gm 12/16/24 10:22 01/01/25 08:22 Polyethylene Glycol 3350 17 Gm Powd.Pack PO 17 gm QAM SANTIAGO Administration Potassium Chloride 10 meq 12/28/24 08:00 01/01/25 08:21 Potassium Chloride 10 Meq Er Tablet PO 10 meq DAILY@0800 SANTIAGO Administration Senna/Docusate Sodium 1 tab 12/16/24 21:00 12/31/24 20:30 Senna/Docusate Sodium Tablet PO 1 tab HS SANTIAGO Administration Sodium Chloride 20 ml 12/12/24 11:00 Central Line Flush IV PUSH PRN PRN after blood draws Sodium Chloride 10 ml 12/12/24 11:00 Central Line Flush IV PUSH PRN PRN with TPN bag changes Sodium Chloride 10 ml 12/13/24 14:00 01/01/25 05:21 Central Line Flush IV PUSH 10 ml Q8HR SANTIAGO Administration Sodium Chloride 20 ml 12/13/24 12:24 12/23/24 05:38 Central Line Flush IV PUSH 20 ml PRN PRN Administration after blood draws Thiamine HCl 100 mg 12/24/24 09:00 01/01/25 08:21 Thiamine Hcl 100 Mg Tablet PO 100 mg QAM SANTIAGO Administration Radiology Results: ITS Impressions Chest CTA 12/10/24 19:15 IMPRESSION: No pulmonary embolism. No aortic dissection. Multifocal pneumonia. Chest CT 12/15/24 16:37 IMPRESSION: Endotracheal tube, left IJ central venous line, NG tube, all in good position. Pulmonary opacities likely representing worsening atypical/viral infection. Small cavitary lesions noted in the right upper lobe. A component of aspiration could be considered given the presence of airway secretions/debris. Trace bilateral pleural effusions. Ascending aortic ectasia. Abdomen X-Ray 12/18/24 14:59 IMPRESSION: 1. Normal bowel gas pattern. Head CT 12/27/24 22:02 IMPRESSION: 1. Normal aging brain. Brain MRI 12/28/24 12:55 IMPRESSION: 1. Normal aging brain. Modified Barium Swallow 12/30/24 15:04 IMPRESSION: Laryngeal penetration without aspiration. Please correlate with speech pathologist findings and specific feeding recommendations. Chest X-Ray 12/31/24 14:11 IMPRESSION: 1. Diffuse lung disease with mild improvement, consistent with pneumonia. Quality VTE Prophylaxis VTE prophylaxis: pharmacologic ordered
[2025-01-01] MEDS: SENNA/DOCUSATE SODIUM TABLET 1 TAB PO (20:32)
[2025-01-02] VITALS (9 sets, daily range): BP systolic 127–142; BP diastolic 71–84; PULSE 63–72; RESP 16–18; TEMP 36.4–36.6; O2SAT 96–99
[2025-01-02] MEDS: CENTRAL LINE FLUSH 10 ML IV PUSH ×3 (05:17→21:16)
[2025-01-02] MEDS: metroNIDAZOLE 500 MG TABLET PO ×3 (05:17→21:16)
[2025-01-02] MEDS: POTASSIUM CHLORIDE 10 MEQ ER TABLET PO (09:01)
[2025-01-02] MEDS: hydroCHLOROthiazide 25 MG TABLET PO (09:01)
[2025-01-02] MEDS: FOLIC ACID 1 MG TABLET PO (09:01)
[2025-01-02] MEDS: amLODIPine BESYLATE 10 MG TABLET PO (09:01)
[2025-01-02] MEDS: THIAMINE HCL 100 MG TABLET PO (09:01)
[2025-01-02] MEDS: CEFDINIR 300 MG CAPSULE PO ×2 (09:01→20:47)
[2025-01-02] MEDS: hydrALAZINE 12.5 MG TABLET PO ×4 (09:01→20:48)
[2025-01-02] MEDS: ENOXAPARIN 40 MG/0.4 ML SYRINGE SUB-Q (09:01)
[2025-01-02] MEDS: METOPROLOL TARTRATE 50 MG TAB PO ×2 (09:01→20:48)
[2025-01-02] MEDS: PANTOPRAZOLE SODIUM IV 40 MG VIAL IV PUSH (09:02)
[2025-01-02] MEDS: polyethylene glycoL 3350 17 GM POWD.PACK PO (09:02)
--- NOTE | 2025-01-02 12:03 | PCNFU ---
Nutrition Follow-Up Complete: Suboptimal Nutrition as related to mechanical ventilation as evidenced by NPO. Goal: Meet estimated nutritional needs. Patient will continue current goal. Pt current nutrition is Minced and Moist, Level 5/heart healthy diet Last recorded weight is 65.8 kg, down from 69 kg on admit. Bowel Motility:+BM reported 2/5 Labs Reviewed: K 3.3, Hct 24.4, Hgb 8.2 Meds Noted: Folic Acid, Thiamine, Protonix, Miralax Skin: WNL Additional Notes: Spoke with nursing today, patient had a good day on 2/5 oral intake 50, 90,100% of meals reported. Today, patient is reported to be confused and did not eat much of breakfast today. Diet supplements remain on trays for additional 300 kcal and 9 gm protein. Discussions regarding speech evaluation. No orders at this time. Po intake continues to be encouraged. Will monitor weight, labs, skin, diet orders, meds every 3 days.
--- NOTE | 2025-01-02 12:41 | P.PNIM_ITS ---
Progress Note: A&P Assessment and Plan (1) Acute respiratory failure: Code(s): J96.00 - Acute respiratory failure, unspecified whether with hypoxia or hypercapnia Status: Acute Assessment and Plan: 12/12: Acute respiratory failure/impending respiratory failure likely related to altered mentation secondary to alcohol withdrawal, respiratory distress due to pneumonia and influenza A, COPD/emphysema -12/12: Intubated in the ICU -currently on CMV mode of ventilation, peep of 8 and 30% FiO2, saturating 90 91% -continue bronchodilators given history of COPD -Sedated with propofol and fentanyl infusion, maintain RASS of 0 to -2, daily SBT and SAT -12/15: chest x-rays have not been improving so opted to obtain chest CT which is as under -12/16: Consulted pulmonology and patient had bronchoscopy. Culture sent -antibiotic and antiviral as below -sedation holiday was performed and patient placed on 5/8 PSV but patient became tachypneic with respiratory rate in 30s and failed his trial. -12/18 chest x-ray reviewed and appears worse. For further fluids - 12/18 for weaning trial as chest x-ray appears worsened patient has increased oxygen requirement -12/19 sedation holiday was performed patient not a candidate for weaning trial due to tachypnea tachycardia on loading sedation IV Lasix 12/20 chest x-ray pending, sedation holiday ordered. Patient was placed on PSV 5/8 she tolerated for only little bit of time and then became tachypneic with respiratory rate up to 40s. Patient was placed back on CMV and restarted on low-dose sedatives 12/21 sedation holiday was performed will attempt PSV weaning trial again. Lasix IV x1 today 12/22 Lasix IV give 5/8 PSV SBT done for more than 1 hour. RSBI, ABGI and Vitals acceptable. Patient is quite weak but does have a decent cough reflex. Pt awake and fo llowing commands. Will extubate and monitor. NPO for now. Bipap PRN at night. If he gets reintubate he will need tracheostomy 12/23 doing well and on nasal cannula. Continue supplemental oxygen. Continue incentive spirometry. Up in chair 12/25: I assumed care today. Patient is currently extubated on and on nasal cannula 3 L. 12/26: Will consider CT scan head tomorrow, if no improvement. 12/28: CT and MRI brain shows no acute abnormalities. Ordered blood culture. Chest x-ray shows pneumonia started Levaquin. 12/30 day 4/7 on Levaquin and 2/7 on flagyl continue -12/15: Repeat CT chest: IMPRESSION: Endotracheal tube, left IJ central venous line, NG tube, all in good position. Pulmonary opacities likely representing worsening atypical/viral infection. Smal l cavitary lesions noted in the right upper lobe. A component of aspiration could be considered given the presence of airway secretions/debris. Trace bilateral pleural effusions. Ascending aortic ectasia (2) Multifocal pneumonia: Code(s): J18.9 - Pneumonia, unspecified organism Status: Acute Assessment and Plan: 12/10: CT chest PE protocol was negative for PE, but showed bilateral multifocal pneumonia -chest x-ray also showed bilateral multifocal pneumonia -patient tested positive for influenza A 12/10: Blood cultures negative x2 12/12: Sputum cultures are negative 12/12: Nasal MRSA not detected Completed course meropenem Completed doxycycline, Discontinue vancomycin (12/19) Completed course off Tamiflu 12/28: Started Levaquin 12/30 continue levaquin and flagyl (3) COPD with emphysema: Code(s): J43.9 - Emphysema, unspecified Status: Acute Assessment and Plan: History of COPD/emphysema See above (4) SVT (supraventricular tachycardia): Code(s): I47.10 - Supraventricular tachycardia, unspecified Status: Acute Assessment and Plan: Patient went into SVT on admission, appreciate cardiology evaluation and recomme ndation likely related to respiratory distress from pneumonia, influenza, alcohol withdrawal. -patient was started on metoprolol per tube by cardiology (12/13) -currently in sinus rhythm, rate controlled, patient does have intermittent SVTs which is short-lived -continue beta-shannan . Echo Summary 1. Complete two-dimensional, color flow and Doppler transthoracic echocardiogram is performed. 2. Technically difficult study with limited views as patient is supine, confused, and restrained with mittens. 3. Overall does appear to have normal biventricular size and systolic function . 4. There does not appear to be any significant valvular disease. (5) Alcohol withdrawal: Code(s): F10.939 - Alcohol use, unspecified with withdrawal, unspecified Status: Acute Assessment and Plan: Patient does have a history of significant alcohol use -in the IMU he had elevated CIWA score and received multiple doses of Ativan -12/12: patient was confused, tremulous, and was in alcohol withdrawal -continue thiamine and folic acid Precedex weaned off -12/25: Will do as needed Ativan if patient is anxious (6) Electrolyte abnormality: Code(s): E87.8 - Other disorders of electrolyte and fluid balance, not elsewhere classified Status: Acute Assessment and Plan: Potassium replacement ordered (7) MICHELLE (acute kidney injury): Code(s): N17.9 - Acute kidney failure, unspecified Status: Acute Assessment and Plan: 12/17 Increase in creatinine as compared to yesterday. Patient was given IV albumin and IV fluids Discontinued vancomycin Monitor urine output electrolytes and creat resolved (8) Ileus: Code(s): K56.7 - Ileus, unspecified Status: Acute Assessment and Plan: Decreased bowel sounds and slight abdominal distension on exam KUB does showed normal bowel gas pattern at this time Patient was tolerating tube feeding and had bowel movements. Now off of tube feed post extubate Continue MiraLax, add Dulcolax suppository resolved (9) Hypertension: Code(s): I10 - Essential (primary) hypertension Status: Acute Assessment and Plan: Increase dose of metoprolol and add Norvasc and hydralazine (10) Metabolic encephalopathy: Code(s): G93.41 - Metabolic encephalopathy Status: Acute Assessment and Plan: Normal TSH and B12, RPR negative MRI brain and CT scan brain shows no acute abnormalities resolved patient alert and oriented today x3 Plan DVT prophylaxis: Lovenox Stress ulcer prophylaxis: Protonix Nutrition: Diet ordered Code Status: Full code Speech therapy , PT OT awaiting placement Subjective Date/time seen: 01/02/25 12:41 Interval history: Patient comfortable at bedside, however alert and oriented x3. Awaiting placement Review of Systems Review of Systems: Cough for 3+ months, patient is a very poor historian and can not really contribute in a meaningful way to history taking. All systems reviewed & are unremarkable except as noted in HPI and below (HPI) ROS unobtainable: Yes unobtainable due to endotracheal tube, unobtainable due to medical condition and unobtainable due to mental status Exam Narrative: General: I alert awake and in no acute distress HEENT:? Pupils equal and reactive, sclera is clear Neck:? Supple Respiratory:? Clear breath sounds bilaterally, decreased at bases Cardiac:? S1-S2 is normal, regular rate and rhythm Abdomen:? Soft, nontender, mildly distended, absent bowel sound Extremities:? No edema, palpable pedal pulses Neuro:? AO x2, moves all extremities and follows command Skin:? Warm and dry, bruising noted on bilateral upper and lower extremity Psych:? Normal speech and affect Const: General: comfortable, no acute distress, well developed, alert, awake, ill appearing acutely and underweight Nutritional Appearance: underweight Orientation/consciousness: patient oriented x3 Other: Patient looks older than stated age, having bouts of cough HENMT: Head: normal to inspection, normocephalic and atraumatic Ears: hearing grossly normal bilaterally Face/Nose/Sinus: normal facial exam Face and sinus: normal facial exam Mouth: Yes dry mucous membranes Other: OETT in place Eyes: General: appearance normal, both eyes and all related structures Sclera: sclerae normal Pupils: Equal, round and reactive pupils present EOM: EOMs intact bilaterally Neck: Neck: full ROM, no lymphadenopathy and no JVD Thyroid: thyroid normal Lymphatic: no lymphadenopathy noted Chest: Chest palpation & inspection: normal inspection of the chest Resp: Effort & Inspection: normal respiratory effort, able to speak in complete sentences, Actively coughing and tachypneic Auscultation: crackles, wheezes and diminished lung sounds Other: On mechanical ventilation Cardio: Jugular venous distension: no JVD Rate: tachycardic Rhythm: abnormal rhythm irregularly irregular Heart sounds: S1 normal heart sound present and S2 normal heart sound present GI: Inspection: normal to inspection : General: Yes deferred Skin: General skin exam: normal color Rashes: no rashes Wounds: no wounds Neuro: General: patient oriented x3 and CN's II-XI intact bilaterally Cranial nerves: Yes CN's II-XII intact bilaterally and Yes Equal, round and reactive pupils present Cognition (Neuro): normal cognition Speech: normal speech Gait exam (Neuro): Normal gait present Motor exam (neuro): 5/5 motor strength present throughout Other: sedated iwth propofol and fentanyl Extrem: General: normal to inspection, full ROM, no joint enlargement and no pedal edema Psych: Other: Sedated Objective Data Vital Signs Vital Signs: Vital Signs - 24 hr 01/01/25 18:09 01/01/25 18:12 01/01/25 20:30 Temperature 97.3 F L 97.3 F L Pulse Rate 67 67 75 Respiratory Rate 16 16 14 Blood Pressure 117/73 117/73 Pulse Oximetry 94 95 96 Oxygen Delivery Room Air Fraction of Inspired Oxygen 32 01/01/25 20:32 01/01/25 20:44 01/01/25 23:55 Temperature 97.8 F 97.7 F Pulse Rate 68 75 73 Respiratory Rate 14 16 Blood Pressure 136/76 137/73 Pulse Oximetry 96 98 Oxygen Delivery Fraction of Inspired Oxygen 01/02/25 06:25 01/02/25 08:00 01/02/25 08:55 Temperature 97.8 F 97.5 F L Pulse Rate 67 69 Respiratory Rate 16 18 Blood Pressure 138/73 142/71 H Pulse Oximetry 97 97 Oxygen Delivery Room Air Fraction of Inspired Oxygen 01/02/25 09:01 01/02/25 10:54 Temperature Pulse Rate 72 Respiratory Rate Blood Pressure Pulse Oximetry 96 Oxygen Delivery Room Air Fraction of Inspired Oxygen Intake/Output Intake/Output: Intake & Output 12/30/24 12/31/24 01/01/25 01/02/25 23:59 23:59 23:59 23:59 Intake Total 1280 1010 1760 500 Output Total 1975 1350 1680 700 Balance -695 -340 80 -200 Meds/Results Medications: Active Medications Generic Name Dose Route Start Last Admin Trade Name Freq PRN Reason Stop Dose Admin Acetaminophen 650 mg 12/11/24 07:58 12/30/24 20:32 Acetaminophen 325 Mg Tablet PO 650 mg Q4H PRN Administration Mild Pain (1-3) or Fever Albuterol/Ipratropium 3 ml 12/23/24 07:50 12/23/24 08:11 Ipratropium 0.5 Mg/Albuterol Sulfate 2.5 Mg Ampul.Neb 3 Ml INHALATION 3 ml Q6HRT PRN Administration wheezing Alteplase, Recombinant 2 mg 12/16/24 09:59 12/16/24 16:31 Alteplase 2 Mg Vial (Cathflo) IV PUSH 2 mg ONCE PRN Administration Line Occlusion Amlodipine Besylate 10 mg 12/24/24 09:00 01/02/25 09:01 Amlodipine Besylate 10 Mg Tablet PO 10 mg DAILY SANTIAGO Administration Bisacodyl 10 mg 12/19/24 08:26 12/19/24 09:19 Bisacodyl 10 Mg Suppository RECTAL 10 mg QAM PRN Administration Constipation Cefdinir 300 mg 12/31/24 14:30 01/02/25 09:01 Cefdinir 300 Mg Capsule PO 01/03/25 23:59 300 mg Q12HR SANTIAGO Administration Dextrose 12.5 gm 12/11/24 11:48 Dextrose 50% 25 Gm/50 Ml Syringe IV PUSH PRN PRN Hypoglycemia Protocol Enoxaparin Sodium 40 mg 12/13/24 09:00 01/02/25 09:01 Enoxaparin 40 Mg/0.4 Ml Syringe SUB-Q 40 mg DAILY SANTIAGO Administration Folic Acid 1 mg 12/24/24 09:00 01/02/25 09:01 Folic Acid 1 Mg Tablet PO 1 mg DAILY SANTIAGO Administration Glucagon 1 mg 12/11/24 11:48 Glucagon For Inj 1 Mg Vial IM PRN PRN Hypoglycemia Protocol Glucose 15 gm 12/11/24 11:48 Glucose Oral Gel 15 Gm Of Glucse In 37.5 Gm Tube PO PRN PRN Hypoglycemia Protocol Hydralazine HCl 10 mg 12/25/24 06:04 12/30/24 11:17 Hydralazine Hcl 20 Mg/Ml Vial IV PUSH 10 mg Q8H PRN Administration HIGH BP SYSTOLIC >150 Hydralazine HCl 12.5 mg 12/29/24 17:00 01/02/25 09:01 Hydralazine 12.5 Mg Tablet PO 12.5 mg QID SANTIAGO Administration Hydrochlorothiazide 25 mg 12/30/24 09:00 01/02/25 09:01 Hydrochlorothiazide 25 Mg Tablet PO 25 mg DAILY SANTIAGO Administration Dextrose 1,000 mls @ 100 mls/hr 12/11/24 11:48 Dextrose 5% 1,000 Ml IVPB PRN PRN Hypoglycemia Protocol Labetalol HCl 20 mg 12/23/24 07:50 12/28/24 19:54 Labetalol Hcl Inj 100 Mg/20 Ml Vial IV PUSH 20 mg Q4H PRN Administration SBP > 160 and HR> 60 -1st choice Metoprolol Tartrate 5 mg 12/24/24 07:57 12/27/24 06:01 Metoprolol Tartrate Inj 5 Mg/5 Ml Vial IV PUSH 5 mg Q4H PRN Administration HR > 120 Metoprolol Tartrate 50 mg 12/24/24 09:00 01/02/25 09:01 Metoprolol Tartrate 50 Mg Tab PO 50 mg Q12HR SANTIAGO Administration Metronidazole 500 mg 12/30/24 14:00 01/02/25 05:17 Metronidazole 500 Mg Tablet PO 01/03/25 23:59 500 mg Q8HR SANTIAGO Administration Ondansetron HCl 4 mg 12/11/24 04:19 Ondansetron Inj 4 Mg/2 Ml Vial IV PUSH Q6H PRN Nausea And Vomiting Pantoprazole Sodium 40 mg 12/13/24 09:00 01/02/25 09:02 Pantoprazole Sodium Iv 40 Mg Vial IV PUSH 40 mg QAM SANTIAGO Administration Polyethylene Glycol 17 gm 12/16/24 10:22 01/02/25 09:02 Polyethylene Glycol 3350 17 Gm Powd.Pack PO 17 gm QAM SANTIAGO Administration Potassium Chloride 10 meq 12/28/24 08:00 01/02/25 09:01 Potassium Chloride 10 Meq Er Tablet PO 10 meq DAILY@0800 SANTIAGO Administration Senna/Docusate Sodium 1 tab 12/16/24 21:00 01/01/25 20:32 Senna/Docusate Sodium Tablet PO 1 tab HS SANTIAGO Administration Sodium Chloride 20 ml 12/12/24 11:00 Central Line Flush IV PUSH PRN PRN after blood draws Sodium Chloride 10 ml 12/12/24 11:00 Central Line Flush IV PUSH PRN PRN with TPN bag changes Sodium Chloride 10 ml 12/13/24 14:00 01/02/25 05:17 Central Line Flush IV PUSH 10 ml Q8HR SANTIAGO Administration Sodium Chloride 20 ml 12/13/24 12:24 12/23/24 05:38 Central Line Flush IV PUSH 20 ml PRN PRN Administration after blood draws Thiamine HCl 100 mg 12/24/24 09:00 01/02/25 09:01 Thiamine Hcl 100 Mg Tablet PO 100 mg QAM SANTIAGO Administration Radiology Results: ITS Impressions Chest CTA 12/10/24 19:15 IMPRESSION: No pulmonary embolism. No aortic dissection. Multifocal pneumonia. Chest CT 12/15/24 16:37 IMPRESSION: Endotracheal tube, left IJ central venous line, NG tube, all in good position. Pulmonary opacities likely representing worsening atypical/viral infection. Small cavitary lesions noted in the right upper lobe. A component of aspiration could be considered given the presence of airway secretions/debris. Trace bilateral pleural effusions. Ascending aortic ectasia. Abdomen X-Ray 12/18/24 14:59 IMPRESSION: 1. Normal bowel gas pattern. Head CT 12/27/24 22:02 IMPRESSION: 1. Normal aging brain. Brain MRI 12/28/24 12:55 IMPRESSION: 1. Normal aging brain. Modified Barium Swallow 12/30/24 15:04 IMPRESSION: Laryngeal penetration without aspiration. Please correlate with speech pathologist findings and specific feeding recommendations. Chest X-Ray 12/31/24 14:11 IMPRESSION: 1. Diffuse lung disease with mild improvement, consistent with pneumonia. Quality VTE Prophylaxis VTE prophylaxis: pharmacologic ordered
[2025-01-03 01:00] VITALS: BP 144/72; PULSE 63; RESP 16; TEMP 37.1; O2SAT 95
[2025-01-03 04:47] VITALS: BP 122/82; PULSE 100; RESP 14; TEMP 36.6; O2SAT 97
[2025-01-03] MEDS: metroNIDAZOLE 500 MG TABLET PO (05:10)
[2025-01-03] MEDS: CENTRAL LINE FLUSH 10 ML IV PUSH (05:10)
[2025-01-03 07:36] VITALS: BP 145/80; PULSE 67; RESP 15; TEMP 36.7; O2SAT 96
[2025-01-03] MEDS: hydroCHLOROthiazide 25 MG TABLET PO (08:19)
[2025-01-03] MEDS: amLODIPine BESYLATE 10 MG TABLET PO (08:19)
[2025-01-03] MEDS: hydrALAZINE 12.5 MG TABLET PO (08:19)
[2025-01-03 08:20] VITALS: PULSE 70
[2025-01-03] MEDS: THIAMINE HCL 100 MG TABLET PO (08:20)
[2025-01-03] MEDS: PANTOPRAZOLE SODIUM IV 40 MG VIAL IV PUSH (08:20)
[2025-01-03] MEDS: FOLIC ACID 1 MG TABLET PO (08:20)
[2025-01-03] MEDS: METOPROLOL TARTRATE 50 MG TAB PO (08:20)
[2025-01-03] MEDS: polyethylene glycoL 3350 17 GM POWD.PACK PO (08:20)
[2025-01-03] MEDS: CEFDINIR 300 MG CAPSULE PO (08:20)
[2025-01-03] MEDS: POTASSIUM CHLORIDE 10 MEQ ER TABLET PO (08:20)
[2025-01-03] MEDS: ENOXAPARIN 40 MG/0.4 ML SYRINGE SUB-Q (08:22)
[2025-01-03 09:20] LABS: Iron 60 ug/dL (49-181)
[2025-01-03 09:28] LABS: Percent Iron Saturation 27 % (20-50)
--- NOTE | 2025-01-03 11:18 | PM.DS ---
DS: Admitting Diagnosis Discharge Date 01/03/25 Admitting Diagnosis Shortness of breath DS: Discharge Diagnosis Discharge Diagnosis (1) Influenza A: Code(s): J10.1 - Influenza due to other identified influenza virus with other respiratory manifestations Status: Acute (2) Metabolic encephalopathy: Code(s): G93.41 - Metabolic encephalopathy Status: Acute (3) Acute respiratory failure: Code(s): J96.00 - Acute respiratory failure, unspecified whether with hypoxia or hypercapnia Status: Acute (4) MICHELLE (acute kidney injury): Code(s): N17.9 - Acute kidney failure, unspecified Status: Acute DS: Summary Hospital Course Hospital Course: This is a 64-year-old male with past medical history significant for hypertension, COPD/emphysema, tobacco dependence. Patient presents to the emergency room with 3 months of shortness of breath worsened in the last 3 weeks or so with cough, productive sputum of greenish yellowish color copious amount, poor oral intake, poor appetite, weight loss. Patient found to have atrial fibrillation with rapid ventricular response. Preliminary workup was significant for chest x-ray with multifocal pneumonia patient tested positive for influenza type A. Patient has been admitted for further evaluation management and treatment. Patient was intubated and admitted to the ICU, he was was successfully extubated, completed antibiotics and Tamiflu course. MICHELLE resolved. Also had ileus while in ICU which eventually resolved. He had SVT for which cardiology was consulted and ECHO showed EF 50-55%, was placed on Metoprolol 50mg bid. Antihypertensive was adjusted with addition of Metoprolol : Lisinopril decreased to 5mg from 40mg, continue Amlodipine 10mg and HCTZ 25mg. Patient was confused initially, MRI no acute changes, B12, TSH and RPR normal. now alert and oriented x3. Pt/OT evaluated and recommended SNF Discharged to SNF per PT/OT recommendations. Time Spent with Patient Time attestation: Total time spent providing and/or coordinating discharge services: DS: Data Data Completed and Pending Labs on day of discharge: Labs from last 24 hours 01/03/25 08:29 Iron 60 TIBC 224 L % Saturation 27 Ferritin 444.00 H Preliminary micro results at discharge 12/16/24 12:11 Fungal Culture - Preliminary Other 12/16/24 12:11 Acid Fast Bacilli Culture - Preliminary Bronchial Alveo Lavage Right Upper Lobe Discharge Plan Discharge Attending physician on discharge: Win Goodson Consulting providers: Gale Carlisle; Benjamin Alvarez; Nehemias Flynn; David Donald Discharging Clinician: Win Goodson Anticipated Discharge Date/Time: 01/03/25 11:08 Patient Disposition: SNF Activity: as tolerated Diet: as tolerated Patient Instructions: Enoxaparin (By injection) Patient Language: Kittitian Stand Alone Forms: General Discharge Information Follow-up/Referrals: Gale Carlisle MD [Physician] - (F/u with cardiology as instructed ) Dhruv,TAWNYA Dasilva [Primary Care Provider] - (F/u with PCP in 3-5 days ) Discharge Medications: New metoprolol tartrate 50 mg Tablet 50 mg PO Q12HR 30 Days Qty: 60 1RF Continued amlodipine 10 mg tablet 10 mg PO DAILY amlodipine 10 mg tablet 10 mg PO DAILY 30 Days Qty: 30 0RF hydrochlorothiazide 25 mg tablet 25 mg PO DAILY 30 Days Qty: 30 0RF prednisone 20 mg tablet 40 mg PO DAILY 5 Days Qty: 10 0RF albuterol sulfate 90 mcg/actuation HFA aerosol inhaler 2 puff inhalation QID PRN (Reason: shortness of breath or wheezing) Qty: 6.7 0RF (DME) Aerochamber MV Spacer See Rx Instructions .Route Qty: 1 0RF Rx Instructions: As directed amlodipine 10 mg tablet 10 mg PO DAILY 60 Days Qty: 60 0RF Changed lisinopril 40 mg tablet 5 mg PO DAILY 60 Days Qty: 60 0RF Discontinued lisinopril 40 mg tablet 40 mg PO DAILY 30 Days Qty: 30 0RF azithromycin 250 mg tablet See Rx Instructions .ROUTE .COMPLEX Qty: 6 0RF Rx Instructions: For 250 mg dose pack: take 500 mg today (day 1), then 250 mg for 4 days (days 2-5) amoxicillin 875 mg tablet 875 mg PO Q12H 10 Days Qty: 20 0RF hydrochlorothiazide 25 mg tablet 25 mg PO DAILY Qty: 30 0RF lisinopril 40 mg tablet 40 mg PO DAILY Qty: 30 0RF hydrochlorothiazide 25 mg tablet 25 mg PO DAILY 60 Days Qty: 60 0RF Date of admission: 12/10/24 22:15 Primary Care Provider: Nichole,Vidya Admitting Provider: Corbin Nicole V. Attending physician on admission: Corbin Nicole V. Condition: Stable
--- NOTE | 2025-01-03 15:12 | PC.NURSE ---
On 01/03/25, the student, Kallie Lacey, provided care and completed [facility] documentation on this patient. I have reviewed the student's documentation and agree with the findings.
== END 2025-01-03 13:35 | DRG 207 ==
LOC: ANHED 22:14 → ANHIMU 22:48 → ANHICU 12-12 09:29 → ANHIMU 12-26 17:26 → ANH2MED 12-28 23:58
PROVIDERS: Emergency Medicine; General Practice; Hospitalist; Internal Medicine; Internal Medicine Pulmonary Disease; Admitting Provider Internal Medicine; Emergency Provider Emergency Medicine; PCP Registered Nurse; Visit Provider Internal Medicine
PROC: 0BJ08ZZ Inspection of Tracheobronchial Tree, Via Natural or Artificial Opening Endoscopic (ICD-10-PCS; CPT 31622; principal; 2024-12-16 11:30)
DX: J10.01 Influenza due to other identified influenza virus with the same other identified influenza virus pneumonia (principal); J96.01 Acute respiratory failure with hypoxia; G93.41 Metabolic encephalopathy; J44.0 Chronic obstructive pulmonary disease with (acute) lower respiratory infection; I47.10 Supraventricular tachycardia, unspecified; J44.1 Chronic obstructive pulmonary disease with (acute) exacerbation; F10.231 Alcohol dependence with withdrawal delirium; N17.9 Acute kidney failure, unspecified; K56.7 Ileus, unspecified; F17.210 Nicotine dependence, cigarettes, uncomplicated; I10 Essential (primary) hypertension; J43.9 Emphysema, unspecified; E86.0 Dehydration; Z20.822 Contact with and (suspected) exposure to COVID-19; E87.6 Hypokalemia
CPT/HCPCS: 31500; 36415; 36569; 36600; 70450; 70551; 71045; 71250; 71275; 74018; 80048; 80053; 80074; 80202; 80307; 81001; 81003; 82140; 82375; 82550; 82607; 82728; 82746; 82805; 82948; 83050; 83540; 83550; 83605; 83735; 83880; 84100; 84132; 84145; 84295; 84443; 84478; 84484; 85018; 85025; 85027; 85380; 85610; 85730; 86140; 86592; 87015; 87040; 87070; 87102; 87116; 87205; 87206; 87637; 87641; 92610; 92611; 93005; 93306; 94002; 94003; 94640; 96361; 96372; 96374; 96375; 97110; 97162; 97165; 97530; 97535; 99285; A9270; C1751; J0330; J0360; J0692; J1630; J1650; J1940; J1956; J2003; J2004; J2060; J2185; J2250; J2470; J2704; J2997; J3010; J3370; J3411; J3475; J3480; J7030; J7040; J7042; J7060; J7070; P9045; P9047; Q9967

== ENCOUNTER 2025-02-13 09:17 | Outpatient (CLI) | payer BC, SELFPAY ==
--- OUTSIDE RECORDS SUMMARY | 2025-02-13 09:39 | XMS_ITS | Encounter Summary ---
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 Alcohol Use Standard Drinks/Week Comments Yes 70 (1 standard drink = 0.6 oz pu re alcohol) 6-8 beers daily, every day OASIS D0700: Social Isolation Answer Da te Recorded Frequency of experiencing loneliness or isolatio n Never 01/23/2025 OASIS A1250: Transportation Answer Date Recorded Lack of Transportation (Medical) No 01/23/2025 Lack of Transportation (Non-Medical) No 01/23/2025 Patient Unable or Declines to Respond No 01/23/2025 OASIS B1300: Health Literacy Answer Brett e Recorded Frequency of needing help to read materials from doctor or pharmacy Never 01/23/2025 PHQ-2 Answer Date Recorded Patient Health Questionnaire-2 Score 0 03/19/2024 Sex and Gender Information Value Date Recorded Sex Assigned at Male 01/22/2025 8:11 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 Sex Male 1:03 PM 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 Gender Identity Not on file Sexual Orientation Not on file documented as of this encounter Plan of Treatment Upcoming Encounters Date Type Department Care Team (Late Contact Info) Description 05/07/2025 8:20 AM CDT Office Visit [facility] Family & Internal Medicine - [address] [phone] Vidya Varela APNP [address] [place] [id number] documented as of this encounter Visit Diagnoses Not on filedocumented in this encounter Additional Health Concerns Assessment Noted Time PHQ-9 Depression Total Score: 0 03/19/20 24 8:36 AM CDT documented as of this encounter Care Teams Wellhead Pumper Relationship Specialty Start Date End Date Vidya Varela APNP [address] [place] [id number] PCP - General NURSE PRACTITIONER 01/12/24 documented as of this encounter
--- OUTSIDE RECORDS SUMMARY | 2025-02-13 09:39 | XMS_ITS | Clinical Summary ---
Author Organization [facility] Address [address] [place] [address] Care Team Providers Care Property Field Inspector Name Role Phone Kip Varela Primary Care Provider [phone] Allergies Active Allergy Reactions Criticality Noted Date Comments Cephalexin Unknown 03/15/2019 Medications esomeprazole (NEXIUM) 20 MG capsuleIndicatio ns:Gastroesophag eal reflux disease (GERD), poorly controlled Take 1 capsule (20 mg total) by mouth every morning before breakfast. Indications: Gastroesophageal reflux disease (GERD), poorly controlled Active cetirizine (ZYRTEC) 10 MG tablet Take 1 tablet (10 mg total) by mouth daily. Active albuterol sulfate HFA (PROAIR HFA) 108 (90 Base) MCG/ACT inhalerIndicatio ns:COPD with Bronchospasms Prophylaxis Inhale 2 puffs into the lungs every 6 (six) hours as needed for Wheezing. Indications: Treatment to Prevent COPD with Bronchospasms 18 g 1 01/16/20 25 Active metoprolol tartrate (LOPRESSOR) 50 MG tabletIndication s:Hypertension Take 1 tablet (50 mg total) by mouth 2 (two) times daily. Indications: High Blood Pressure Take one tab po bid 01/17/20 25 Active amLODIPine (NORVASC) 10 MG tabletIndication s:Benign Hypertension Take 1 tablet (10 mg total) by mouth daily. Indications: High Blood Pressure Without Symptoms 90 tablet 3 01/23/20 25 Active hydroCHLOROthiaz heri (HYDRODIURIL) 25 MG tabletIndication s:Primary hypertension Take 1 tablet (25 mg total) by mouth every morning. 90 tablet 3 02/05/20 25 Active lisinopril (PRINIVIL) 40 MG tabletIndication s:Primary hypertension Take 1 tablet (40 mg total) by mouth daily. 90 tablet 3 02/05/20 25 Active lisinopril (PRINIVIL) 40 MG tabletIndication s:Primary hypertension Take 1 tablet (40 mg total) by mouth daily. 90 tablet 3 03/19/20 24 2024 Disconti nued(Dup licate Med) hydroCHLOROthiaz heri (HYDRODIURIL) 25 MG tabletIndication s:Primary hypertension Take 1 tablet (25 mg total) by mouth every morning. 90 tablet 3 03/19/20 24 2024 Disconti nued(Reo rder) amLODIPine (NORVASC) 10 MG tabletIndication s:Primary hypertension Take 1 tablet (10 mg total) by mouth daily. 90 tablet 3 03/19/20 24 2024 Disconti nued(Reo rder) lisinopril (PRINIVIL) 5 MG tabletIndication s:Hypertension Take 10 mg by mouth daily. Indications: High Blood Pressure 2 tablets daily 01/03/20 25 2024 Disconti nued(For mulary change) metoprolol tartrate (LOPRESSOR) 50 MG tabletIndication s:Hypertension take 1/2 tablet by mouth every 12 hours for 30 days 01/03/20 25 2024 Disconti nued(The rapy complete d) hydroCHLOROthiaz heri (MICROZIDE) 12.5 MG tabletIndication s:Hypertension Take 25 mg by mouth every morning. take half tab po daily Indications: High Blood Pressure 01/13/20 25 2024 Disconti nued(Dup licate Med) lisinopril (PRINIVIL) 20 MG tabletIndication s:Hypertension Take 1 tablet (20 mg total) by mouth daily. Indications: High Blood Pressure 30 tablet 1 01/20/20 25 2024 Disconti nued(Reo rder) lisinopril (PRINIVIL) 20 MG tabletIndication s:Hypertension Take 1 tablet (20 mg total) by mouth daily. Indications: High Blood Pressure 90 tablet 3 02/05/20 25 2024 Disconti nued(Err or) Active Problems Problem Noted Date Diagnosed Date Alcohol abuse, daily use 03/19/2024 Gastroesophageal reflux disease without esophagi tis 03/19/2024 Cigarette nicotine dependence without complicati on 03/19/2024 HTN (hypertension) Chronic sinusitis, unspecified Encounters Date Type Department Care Team Description 02/04/2025 11:20 AM CDT Office Visit [address] [phone] Kip Varela, APNP Hypertension 02/04/2025 Travel 02/03/[address] [phone] Kip Varela, APNP 01/24/[address] [phone] Kip Varela, APNP Results 01/24/[address] [phone] Kip Varela, APNP Lab Results 01/23/2025 11:20 AM SPEECH PATHOLOGIST Office Visit [address] [phone] Kip Varela, APNP Blood Pressure Changes 01/23/2025 9:00 AM SPEECH PATHOLOGIST Home Care Visit [address] [address] Josefina Cabral RN SN OASIS DISCHARGE/ASSESSMENT 01/23/2025 Home Care Visit [address] [address] Josefina Cabral RN [facility] INTERDISCIPLINARY [place] 01/23/2025 Travel 01/22/[address] [phone] Kip Varela, APNP Advice 01/20/2025 9:40 AM SPEECH PATHOLOGIST Laboratory Only [facility] Internal [address] [address] Kip Varela APNP 01/20/2025 9:20 AM SPEECH PATHOLOGIST Allied Health/Nurse Visit [address] [phone] Kip Varela APNP Allied Health Visit (HTN) 01/20/[address] [phone] Kip Varela APNP Follow Up 01/20/2025 Travel 01/20/[address] [phone] Kip Varela APNP Advice 01/18/2025 Scan [facility] Scanned, [facility] 01/17/2025 Scan [facility] Scanned, [facility] 01/17/[address] [phone] Kip Varela APNP Prior Authorization (albuterol sulfate HFA (PROAIR HFA) 108 (90 Base) MCG/ACT inhaler) 01/16/2025 10:30 AM SPEECH PATHOLOGIST Home Care Visit [address] [address] Reyna Bello LPN SN HOME VISIT 01/16/2025 Scan [facility] Scanned, Doc Med [facility] 01/16/[address] [phone] Kip Varela APNP Lab Order 01/14/2025 10:00 AM SPEECH PATHOLOGIST Home Care Visit [address] [place] [address] Komal Sam, PT PT INITIAL EVALUATION 01/13/2025 10:30 AM SPEECH PATHOLOGIST Home Care Visit [facility] Home Care [address] [place] [address] [place] [address] Krystina Tillman, RN SN OASIS START OF CARE 01/13/2025 Plan of Care Documentation [facility] Care [address] [place] [address] [place] [address] 01/09/2025 11:20 AM SPEECH PATHOLOGIST Office Visit [facility] Family & Internal Medicine [address] [address] Kip Varela APNP TCM 01/09/2025 Telephone [facility] Care [address] [place] [address] [place] [address] Kip Varela APNP Advise 01/09/2025 Travel 01/03/2025 Scan [facility] Scanned, Doc Med Group 12/31/2024 Scan [facility] Scanned, [facility] Image (SCAN) 12/30/2024 Scan [facility] Scanned, [facility] Image (SCAN) 12/28/2024 Scan [facility] Scanned, [facility] MRI (SCAN); Image (SCAN) 12/27/2024 Scan [facility] Scanned, Doc [facility] CT (SCAN) 12/23/2024 Scan [facility] Scanned, [facility] Procedure (SCAN) 12/22/2024 Scan [facility] Scanned, [facility] Image (SCAN) 12/19/2024 Scan [facility] Scanned, [facility] Image (SCAN) 12/18/2024 Scan [facility] Scanned, [facility] Image (SCAN) 12/17/2024 Scan [facility] Scanned, Doc [facility] Image (SCAN) 12/16/2024 Scan [facility] Scanned, Doc [facility] Image (SCAN) 12/15/2024 Scan [facility] Scanned, Doc [facility] CT (SCAN); Image (SCAN) 12/14/2024 Scan [facility] Scanned, [facility] Image (SCAN) 12/13/2024 Scan [facility] Scanned, [facility] Image (SCAN) 12/12/2024 Scan [facility] Scanned, [facility] Image (SCAN) 12/10/2024 Scan [facility] Scanned, [facility] Echo (SCAN); Image (SCAN) 12/10/2024 Telephone [facility] Family & Internal Medicine [address] [phone] Kip Varela APNP Advice 12/09/2024 Scan [facility] Scanned, [facility] Lab (SCAN) 12/09/2024 Scan [facility] Scanned, [facility] Lab (SCAN); Image (SCAN) from Last 3 Months Immunizations Name Administration Dates Next Due Fluzone (IIV3, Trivalent, 0.5 ML Prefilled Syrin ge) 02/04/2025 Pneumococcal (Prevnar 20) 02/04/2025 Family History Medical History Relation Comments Hypertension Father Anxiety Son 1 Relation Status Comments Brother Alive Daughter 1 Alive Daughter 2 Alive Father Mother Son 1 Alive Son 2 Alive Son 3 Alive Social History Tobacco Use Types Packs/Day Years Used Date Smoking Tobacco: Every Day Cigarettes 2 35.9 Started: 03/19/1989 Smokeless Tobacco: Never Tobacco Cessation:Ready to Q uit: No; Counseling Given: Yes Comments:Provider to probation counselor. Alcohol Use Standard Drinks/Week Comments Yes 71 [...] Sex Assigned at Male 01/22/2025 8:11 AM SPEECH PATHOLOGIST Legal Sex Male 1:03 PM SPEECH PATHOLOGIST Gender Identity Not on file Sexual Orientation Not on file Last Filed Vital Signs Vital Sign Reading Time Taken Comments Blood Pressure 130/66 02/04/2025 11:22 AM CDT Pulse 54 02/04/2025 11:22 AM CDT Temperature 36.7 C (98 F) 02/04/2025 11:22 AM CDT Respiratory Rate 16 02/04/2025 11:22 AM CDT Oxygen Saturation 97% 02/04/2025 11:22 AM CDT Inhaled Oxygen Concentration - - Weight 70.9 kg (156 lb 4.8 oz) 02/04/2025 11:22 AM CDT Height 180.3 cm (5' 11 ) 02/04/2025 11:22 AM CDT Body Mass Index 21.8 02/04/2025 11:22 AM CDT Plan of Treatment Upcoming Encounters Date Type Department Care Team (Late st Contact Info) Description 05/07/2025 8:20 AM CDT Office Visit [facility] Family & Internal Medicine - [address] [phone] Kip Varela, SANDRA [address] [place] [phone] Health Maintenance Due Date Last Done Comments Colorectal Cancer Screening Colonoscopy (10 Years) 1961 Annual Physical 1964 Zoster Vaccines (1 of 2) 2011 RSV Immunization or 60+ Years (1 - Risk 60-74 years 1-dose series) 2021 COVID-19 Vaccine (3 - 2023-2 5 season) 2024 02/12/2021, 01/23/2021 PHQ-2 (Physician Andreafski) 11/27/2024 03/19/2024 DTaP, Tdap and Td Vaccines ( 1 - Tdap) 03/19/2025 Postponed from 04/11 (Patient Refused) Lung Cancer Screening 11/12/2025 Postpo [place] from 2011 (Awaiting Documentation) Hepatitis C Completed 03/25/2024 Influenza Adult Completed 02/04/2025 Pneumococcal Vaccine: Pediatrics (0 to 5 Years) and At-Risk Patients (6 to 64 Years) Completed 02/04/2025 Meningococcal B Vaccine Aged Out No l onger eligible based on patient's age to complete this topic Meningococcal Vaccine Aged Out No tylor jen eligible based on patient's age to complete this topic RSV Immunizations Under 20 Months Aged Out No longer eligible b ased on patient's age to complete this topic Procedures Procedure Name Priority Date/Time Associated Diagnosis Comments XR CHEST PA+LAT Routine 01/20/2025 10:04 AM SPEECH PATHOLOGIST Pneumonia COMPREHENSIVE METABOLIC PANEL Routine 01/20/2025 9:45 AM SPEECH PATHOLOGIST Primary hypertension CBC W/DIFF AUTOMATED Routine 01/20/2025 9:45 AM SPEECH PATHOLOGIST Primary hypertension COLLECTION VENOUS BLOOD VENIPUNCTURE Routine 01/20/2025 9:30 AM SPEECH PATHOLOGIST Primary hypertension IMAGE GENERIC 12/31/2024 IMAGE GENERIC 12/30/2024 MRI GENERIC 12/28/2024 IMAGE GENERIC 12/28/2024 CT GENERIC 12/27/2024 PROCEDURE GENERIC (SCAN ORDER) 12/23/2024 PROCEDURE GENERIC (SCAN ORDER) 12/23/2024 IMAGE GENERIC 12/22/2024 IMAGE GENERIC 12/19/2024 12:00 AM SPEECH PATHOLOGIST IMAGE GENERIC 12/18/2024 IMAGE GENERIC 12/18/2024 IMAGE GENERIC 12/17/2024 IMAGE GENERIC 12/16/2024 IMAGE GENERIC 12/16/2024 CT GENERIC 12/15/2024 IMAGE GENERIC 12/15/2024 IMAGE GENERIC 12/14/2024 IMAGE GENERIC 12/13/2024 IMAGE GENERIC 12/13/2024 IMAGE GENERIC 12/13/2024 IMAGE GENERIC 12/12/2024 IMAGE GENERIC 12/12/2024 IMAGE GENERIC 12/12/2024 IMAGE GENERIC 12/12/2024 ECHO GENERIC (SCAN ORDER) 12/10/2024 IMAGE GENERIC 12/10/2024 IMAGE GENERIC 12/10/2024 IMAGE GENERIC 12/10/2024 OUTSIDE LAB COVID-19 (SCAN ORDER) Routine 12/09/2024 OUTSIDE LAB (SCAN ORDER) 12/09/2024 OUTSIDE LAB (SCAN ORDER) 12/09/2024 IMAGE GENERIC 12/09/2024 HEPATITIS C ANTIBODY Routine 03/25/2024 9:40 AM CDT Need for hepatitis C screening test from Last 3 Months or Most Recently Relevant to Health Maintenance Results * XR CHEST PA+LAT (01/20/2025 10:04 AM SPEECH PATHOLOGIST) Anatomical Region Laterality Modality Chest Radiographic Elizabeth ging 01/20/2025 10:0 6 AM SPEECH PATHOLOGIST Impressions 01/20/2025 10:06 AM SPEECH PATHOLOGIST IMPRESSION: No acute findings Ordered By: KIP VARELA Interpreted By: Davey Blake MD, 01/20/2025 10:06 AM Narrative 01/20/2025 10:06 AM SPEECH PATHOLOGIST [facility] [place] [address] 2 VIEWS OF THE CHEST Clinical history: Respiratory failure Comparison: None 2 views of the chest demonstrate the cardiac silhouette to be normal in size. The pulmonary vessels appear normal. The Lungs are clear. No consolidations or effusions are seen. Procedure Note Davey Blake MD - 01/20/2025 [facility] Family [facility] [place] [address] 2 VIEWS OF THE CHEST Clinical history: Respiratory failure Comparison: None 2 views of the chest demonstrate the cardiac silhouette to be normal insize. The pulmonary vessels appear normal. The Lungs are clear. Noconsolidations or effusions are seen. IMPRESSION: No acute findings Ordered By: KIP VARELA Interpreted By: Davey Blake MD, 01/20/2025 10:06 AM us Kip Varela APNP GENERAL IMAGING Final Resul t * (ABNORMAL) COMPREHENSIVE METABOLIC PANEL (01/20/2025 9:45 AM SPEECH PATHOLOGIST) SODIUM S/P/B 139 136 - 145 MMOL/L 01/20/2025 2:37 PM [facility] POTASSIUM S/P/B 3.3(L) 3.5 - 5.1 MMOL/L 01/20/2025 2:37 PM [facility] CHLORIDE S/P/B 98 98 - 107 MMOL/L 01/20/2025 2:37 PM [facility] CO2 29.8 21 - 32 MMOL/L 01/20/2025 2:45 PM [facility] GLUCOSE 92 70 - 99 MG/DL 01/20/2025 2:37 PM [facility] BUN 10 7 - 18 MG/DL 01/20/2025 2:37 PM [facility] CREATININE S/P/B 1.10 0.70 - 1.30 MG/DL 01/20/2025 2:37 PM [facility] CALCIUM S/P/B 8.8 8.4 - 10.5 MG/DL 01/20/2025 2:37 PM [facility] BILIRUBIN TOTAL S/P/B 0.4 0.2 - 1.0 MG/DL 01/20/2025 2:37 PM [facility] ALKALINE PHOSPHATASE S/P/B 78 45 - 115 U/L 01/20/2025 2:37 PM [facility] AST 17 15 - 37 U/L 01/20/2025 2:37 PM [facility] ALT 16 16 - 63 U/L 01/20/2025 2:37 PM [facility] TOTAL PROTEIN S/P/B 6.9 6.4 - 8.2 G/DL 01/20/2025 2:37 PM [facility] ALBUMIN S/P/B 3.3(L) 3.4 - 5.0 G/DL 01/20/2025 2:37 PM [facility] ANION GAP 11.2 5 - 15 MMOL/L 01/20/2025 2:45 PM [facility] Comment:REFERENCE RANGE NOT ESTABLISHED OSMOLALITY (CALC) 287 MOSM/KG 025 2:37 PM SPEECH PATHOLOGIST [facility] Comment:REFERENCE RANGE NOT ESTABLISHED GFR ESTIMATE 75(L) >90 ML/MIN/1. 73 M2 01/20/2025 2:37 PM SPEECH PATHOLOGIST [facility] GFR NOTES GFR REFERENCE S: 01/20/2025 2:37 PM SPEECH PATHOLOGIST [facility] Comment: THE ESTIMATED GFR IS CALCULATED USING THE 2020 CKD-EPI EQUATION. THE FOLLOWING CATEGORIES FOR GRADING RENAL FUNCTION ARE RECOMMENDED BY THE INTERNATIONAL SOCIETY OF NEPHROLOGY (KDIGO 2012 CLINICAL PRACTICE GUIDELINE). G1,NORMAL OR HIGH: >89 ml/min/1.73 m2 G2,MILDLY DECREASED: 60-89 ml/min/1.73 m2 G3A,MILDLY TO MODERATELY DECREASED: 45-59 ml/min/1.73 m2 G3B,MODERATELY TO SEVERELY DECREASED: 30-44 ml/min/1.73 m2 G4,SEVERELY DECREASED: 15-29 ml/min/1.73 m2 G5,KIDNEY FAILURE: <15 ml/min/1.73 m2 01/20/2025 9:45 AM SPEECH PATHOLOGIST [facility] Final Resul t [facility] [address] [place] [address], * (ABNORMAL) CBC W/DIFF AUTOMATED (01/20/2025 9:45 AM SPEECH PATHOLOGIST) WBC 9.81 4.00 - 10.80 x10'3/uL 01/20/2025 2:18 PM SPEECH PATHOLOGIST [facility] RBC 3.01(L) 4.50 - 6.10 x10'6/uL 01/20/2025 2:18 PM SPEECH PATHOLOGIST [facility] HGB 9.7(L) 13.0 - 18.0 G/DL 01/20/2025 2:18 PM SPEECH PATHOLOGIST [facility] HCT 29.3(L) 37.0 - 52.0 % 01/20/2025 2:18 PM [facility] MCV 97.3 78.0 - 100.0 FL 01/20/2025 2:18 PM [facility] MCH 32.2(H) 27.0 - 31.0 PG 01/20/2025 2:18 PM [facility] MCHC 33.1 33.0 - 36.0 G/DL 01/20/2025 2:18 PM [facility] RDW 13.0 11.5 - 14.5 % 01/20/2025 2:18 PM [facility] PLT 339 150 - 350 x10'3/uL 01/20/2025 2:18 PM [facility] MPV 9.7 7.4 - 10.4 FL 01/20/2025 2:18 PM [facility] DIFFERENTIAL TYPE AUTOMATED DIFFERENTIAL 01/20/2025 2:18 PM [facility] NEUTROPHILS % 77.7 % 01/20/2025 2:18 PM [facility] LYMPHOCYTES % 13.4 % 01/20/2025 2:18 PM [facility] MONOCYTES % 5.9 % 01/20/2025 2:18 PM [facility] EOSINOPHILS % 2.8 % 01/20/2025 2:18 PM [facility] BASOPHILS % 0.1 % 01/20/2025 2:18 PM [facility] IMMATURE GRANS % 0.1 % 01/20/2025 2:18 PM [facility] ABS. NEUTROPHILS 7.63 1.60 - 8.30 x10'3/uL 01/20/2025 2:18 PM [facility] ABS. LYMPHOCYTES 1.31 0.80 - 4.70 x10'3/uL 01/20/2025 2:18 PM SPEECH PATHOLOGIST [facility] ABS. MONOCYTES 0.58 0.00 - 1.50 x10'3/uL 01/20/2025 2:18 PM SPEECH PATHOLOGIST [facility] ABS. EOSINOPHILS 0.27 0.00 - 0.40 x10'3/uL 01/20/2025 2:18 PM SPEECH PATHOLOGIST [facility] ABS. BASOPHILS 0.01 0.00 - 0.20 x10'3/uL 01/20/2025 2:18 PM SPEECH PATHOLOGIST [facility] ABS. IMMATURE GRANULOCYTES 0.01 0.00 - 0.03 x10'3/uL 01/20/2025 2:18 PM SPEECH PATHOLOGIST [facility] 01/20/2025 9:45 AM SPEECH PATHOLOGIST Result [facility] Final Resul t [facility] [address] [place] [address], [place] [phone] * IMAGE GENERIC (12/31/2024) Only the most recent of23 resultswithin the time period is included. Anatomical Region Laterality Modality Other 12/31/2024 [facility] Scanned SCANNING Final Resu lt * MRI GENERIC (12/28/2024) Anatomical Region Laterality Modality Other 12/28/2024 [facility] Scanned SCANNING Final Resu lt * CT GENERIC (12/27/2024) Only the most recent of2 resultswithin the time period is included. Anatomical Region Laterality Modality Other 12/27/2024 [facility] Scanned SCANNING Final Resu lt * PROCEDURE GENERIC (SCAN ORDER) (12/23/2024) 12/23/2024 Result [facility] Scanned SCANNING Final Resu lt * PROCEDURE GENERIC (SCAN ORDER) (12/23/2024) 12/23/2024 Result [facility] Scanned SCANNING Final Resu lt * ECHO GENERIC (SCAN ORDER) (12/10/2024) Anatomical Region Laterality Modality Other 12/10/2024 Result [facility] Scanned SCANNING Final Resu lt * OUTSIDE LAB COVID-19 (12/09/2024) CORONAVIRUS SARS COV 2 PCR (RESP) NOT DETECTED NOT DETECTED HS ONBASE 12/09/2024 Result [facility] Scanned SCANNING Final Resu lt [facility] ONBASE * OUTSIDE LAB (SCAN ORDER) (12/09/2024) Only the most recent of2 resultswithin the time period is included. 12/09/2024 Result [facility] Scanned SCANNING Final Resu lt * HEPATITIS C AB ([facility] ONLY) (03/25/2024 9:40 AM CDT) HEPATITIS C AB NON-REACTI VE NON-REACT TOÑO 03/25/2024 8:25 PM CDT [facility] Comment: ANTIBODIES TO HCV NOT DETECTED. DOES NOT EXCLUDE THE POSSIBILITY OF EXPOSURE TO HCV. 03/25/2024 9:40 AM CDT [facility] Final Resul t [facility] [address] [place] [address], [id number] from Last 3 Months or Most Recently Relevant to Health Maintenance Insurance [facility] Advance Directives * Full Code (Latest Code Status on File) Date Activated Date Inactivated Comments 01/13/2025 3:54 PM Care Teams Property Field Inspector Relationship Specialty Start Date End Date Kip Varela APNP [address] [place] [address] PCP - General NURSE PRACTITIONER 01/12/24
--- OUTSIDE RECORDS SUMMARY | 2025-02-13 09:39 | XMS_ITS | Clinical Summary ---
Author Organization [facility] [address] [facility] Address [address] [place] [address] Care Team Providers Care Biodiesel Processing Technician Name Role Phone Violet Maynard Primary Care Provider [phone] Allergies Active Allergy Reactions Criticality Noted Date Comments Cephalexin Unknown 03/15/2019 Medications azithromycin (Zithromax Z-Kush) 250 mg tablet Take 1 tablet (250 mg total) by mouth daily 6 tablet 03/07/2022 Active guaiFENesin ER (MUCINEX) 600 mg 12 hr tablet Take 1 tablet (600 mg total) by mouth 2 (two) times a day for 5 days 10 tablet 03/07/2022 Active amLODIPine (NORVASC) 10 mg tabletIndications :Essential hypertension TAKE 1 TABLET BY MOUTH EVERY DAY 90 tablet 1 01/16/2023 Active hydroCHLOROthiazi de (HYDRODIURIL) 25 mg tabletIndications :Essential hypertension TAKE 1 TABLET BY MOUTH EVERY DAY 90 tablet 1 01/16/2023 Active lisinopriL (PRINIVIL,ZESTRIL ) 40 mg tabletIndications :Essential hypertension TAKE 1 TABLET BY MOUTH EVERY DAY 90 tablet 1 01/16/2023 Active Active Problems Problem Noted Date Diagnosed Date History of COVID-19 02/18/2022 Assessment & Plan (02/18/2022 1:59 PM CDT): recovered Edema of both lower legs 02/18/2022 Assessment & Plan (02/18/2022 1:59 PM CDT): Historical Will evaluate further for PAD - will order sonja and refer to specialty He was advised to ambulate ad catrina, wear compression socks PAD (peripheral artery disease) 02/18/2022 Assessment & Plan (02/18/2022 1:59 PM CDT): Will evaluate further for PAD - will order sonja and refer to specialty He was advised to ambulate ad catrina, wear compression socks Screening PSA (prostate specific antigen) 2021 COVID-19 12/07/2021 Assessment & Plan (12/07/2021 12:04 PM CHECKER BAK[employer]ODU[employer]): Advised starting 500mg of tylenol every six hours as needed for fever/chills/body aches Advised reporting to the er if having chest tightness or cough Discussed MAB treatment - will attempt to order for him through [facility] Discussed cdc guidelines and recent changes to quarantine timeline. We discussed that generally it is now 5d with masking upon return. We discussed that if symptoms are not improving at day 5, it is generally recommended to return when symptoms have resolved. Will prep and mail letter to his house at his request. Advised f/u in the next week if symptoms are not resolving BMI 21.0-21.9, adult 07/02/2021 Assessment & Plan (07/02/2021 10:02 AM CDT): Weight/BMI is in healthy range. Continue healthy lifestyle to maintain. Prostate cancer screening 07/02/2021 Assessment & Plan (07/02/2021 10:56 AM CDT): Labs entered, will notify of results as available Colon cancer screening 07/02/2021 Assessment & Plan (07/02/2021 10:56 AM CDT): Will refer for screening cscope Chronic sinusitis, unspecified 01/26/2017 Essential hypertension 10/24/2016 Overview (04/05/2019): not controlled Assessment & Plan (02/18/2022 1:59 PM CDT): Stable, continue meds same at this time Assessment & Plan (07/02/2021 10:56 AM CDT): Advised resuming meds. Advised goal 120-130/80, he will monitor at home and contact office if running higher for medication adjustment. Fasting labs entered, will notify patient of results as available Assessment & Plan (04/05/2019 11:14 AM CDT): DASH, diet,CPM, refills. Tobacco abuse 10/24/2016 Overview (04/05/2019): ongoing Assessment & Plan (07/02/2021 10:57 AM CDT): Advised smoking cessation. Discussed aid for cessation, such as wellbutrin. He is going to consider options and will let us know if desiring to proceed. Assessment & Plan (04/05/2019 11:14 AM CDT): Patient advised on smoking cessation. Counseled on ways to cut back and advised to call office if would like advice on methods and medications used to help quit smoking. This is a chronic problem and would always recommend reducing amount of smoking in hopes of quitting completely. Alcohol abuse 10/24/2016 Overview (05/08/2020): ongoing, probably impacting bp control Resolved Problems Problem Noted Date Diagnosed Date Resolved Date Annual physical exam 07/02/2021 022 Assessment & Plan (07/02/2021 10:55 AM CDT): Fasting labs entered, will notify patient of results as available Encounters Date Type Department Care Team Description 12/19/2024 Orders Only [facility] Cardiology [address] [place] [id number] Gale Carlisle MD 12/11/2024 Orders Only [facility] Health Information Management [address] [place] [address] Gale Carlisle MD 12/11/2024 Telephone [facility] Cardiology [address] [place] [address] Gale Carlisle MD from Last 3 Months Immunizations Immunization Administration Dates Next Due Pfizer SARS-CoV-2 Monovalent Vaccination (12+ Yrs) PURPLE 02/12/2021,01/23/2021 Surgical History Surgery Date Site/Laterality Comments SINUS SURGERY CLEFT PALATE REPAIR Medical History Medical History Date Comments Hypertension Family History Medical History Relation Name Comments Hypertension Father Cancer Paternal Grandfather Hypertension Son Relation Name Status Comments Father Paternal Grandfather Son Social History Tobacco Use Types Packs/Day Years Used Date Smoking Tobacco: Every Day Cigarettes Smokeless Tobacco: Never Alcohol Use Standard Drinks/Week Comments Yes 4 (1 standard drink = 0.6 oz pur e alcohol) AUDIT-C Answer Date Recorded Q1: How often do you have a drink containing alcohol? 4 or more times a week 02/18/2022 Q2: How many drinks containi ng alcohol do you have on a typical day when you are drinking? 1 or 2 Frequency of Binge Drinking Not on file 01/26 PHQ-2 Answer Date Recorded PHQ-2 Total Score (If total score is 3 or more points, staff should administer the PHQ-9) 0 02/18/2022 Personal Safety Answer Date Recorded Getting School Help Needed Not on file 11/26 Sex and Gender Information Value Date Recorded Sex Assigned at Not on file Legal Sex Male 8:21 PM [employer] Gender Identity Not on file Sexual Orientation Not on file Obstetrics History Last Filed Vital Signs Vital Sign Reading Time Taken Comments Blood Pressure 136/80 02/18/2022 7:20 AM CDT Pulse 68 02/18/2022 7:20 AM CDT Temperature 36.6 C (97.9 F) 02/18/2022 7:20 AM CDT Respiratory Rate 18 05/08/2020 9:38 AM CDT Oxygen Saturation 96% 02/18/2022 7:20 AM CDT Inhaled Oxygen Concentration - - Weight 67.7 kg (149 lb 4.8 oz) 02/18/2022 7:20 A M CDT Height 177.8 cm (5' 10 ) 07/02/2021 9:58 AM CDT Body Mass Index 21.42 07/02/2021 9:58 AM CDT Plan of Treatment Health Maintenance Due Date Last Done Comments Colon Cancer Screening-Colonoscopy 1961 Hepatitis C Screening 1961 Prostate Cancer Screening-PSA 1961 DTaP/Tdap/Td Vaccine (1 - Tdap) 1972 Hepatitis B Screening 1979 Pneumococcal vaccine <65 (1 of 2 - PCV) 1980 Zoster Vaccine (1 of 2) 2011 Regular Well Visit/Exam 18-64 07/02/2022 07/02/2021 Depression Screening 02/18/2023 02/18/2022, 07/02/20 21 Covid-19 Vaccine (3 - season) 2024, 01/23/2021 Influenza Vaccine (#1) 2024 Procedures Procedure Name Priority Date/Time Associated Diagnosis Comments CARDIOLOGY DOCUMENT SCAN Routine 12/13/2024 9:44 AM [employer] CARDIOLOGY DOCUMENT SCAN Routine 12/12/2024 9:39 AM [employer] CARDIOLOGY DOCUMENT SCAN Routine 12/11/2024 8:11 AM [employer] CARDIOLOGY DOCUMENT SCAN 12/11/2024 from Last 3 Months Results * Cardiology Document Scan (12/13/2024 9:44 AM [employer]) Anatomical Region Laterality Modality Other Gale Carlisle MD [facility] C[facility] SERVICES PRO CEDURES Final Result * Cardiology Document Scan (12/12/2024 9:39 AM [employer]) Anatomical Region Laterality Modality Other Dante Bucio MD [facility] CARDIAC SERVICES PROCEDURES F inal Result * Cardiology Document Scan (12/11/2024 8:11 AM [employer]) Anatomical Region Laterality Modality Other Gale Carlisle MD CV CARDIAC SERVICES PRO CEDURES Final Result * Cardiology Document Scan (12/11/2024) Anatomical Region Laterality Modality Other Gale Carlisle MD CV CARDIAC SERVICES PRO CEDURES Final Result from Last 3 Months Insurance [facility] ACCESS CHOICE ANTHEM ACCESS CHOICE Care Teams Biodiesel Processing Technician Relationship Specialty Start Date End Date Violet Maynard PA PCP - General Roller Embosser 06/10/21
--- OUTSIDE RECORDS SUMMARY | 2025-02-13 09:39 | XMS_ITS | Referral Summary ---
Author Organization [facility] [address] Address [address] [place] [address] Care Team Providers Care Roto Gravure Press Operator Name Role Phone Violet Maynard Primary Care Provider [phone]- [phone] Encounters Date Type Department Care Team Description 12/19/2024 Orders Only [facility] Medical [facility] Cardiology [address] [place] [address] Gale Carlisle MD 12/11/2024 Orders Only [facility] Health Information Management [address] [place] [address] Gale Carlisle MD 12/11/2024 Telephone [facility] Medical [facility] Cardiology [address] [place] [address] Gale Carlisle MD from Last 3 Months Allergies Active Allergy Reactions Criticality Noted Date [...] 12/07/2021 Assessment & Plan (12/07/2021 12:04 PM EXHAUST MACHINE OPERATOR): Advised starting 500mg of tylenol every six hours as needed for fever/chills/body aches Advised reporting to the er if having chest tightness or cough Discussed MAB treatment - will attempt to order for him through [facility] Discussed cdc guidelines and recent changes to [...] will notify patient of results as available Immunizations Immunization Administration Dates Next Due Pfizer SARS-CoV-2 Monovalent Vaccination (12+ Yrs) PURPLE 02/12/2021,01/23/2021 Social History Tobacco Use Types Packs/Day Years [...] on file Legal Sex Male 8:21 PM EXHAUST MACHINE OPERATOR Gender Identity Not on file Sexual Orientation [...] 07/02/2021 9:58 AM CDT Plan of Treatment Not on file Procedures Procedure Name Priority Date/Time Associated Diagnosis Comments CARDIOLOGY DOCUMENT SCAN Routine 12/13/2024 9:44 AM EXHAUST MACHINE OPERATOR CARDIOLOGY DOCUMENT SCAN Routine 12/12/2024 9:39 AM EXHAUST MACHINE OPERATOR CARDIOLOGY DOCUMENT SCAN Routine 12/11/2024 8:11 AM EXHAUST MACHINE OPERATOR CARDIOLOGY DOCUMENT SCAN 12/11/2024 from Last 3 Months Results * Cardiology Document Scan (12/13/2024 9:44 AM EXHAUST MACHINE OPERATOR) Anatomical Region Laterality Modality Other Gale Carlisle MD CV CARDIAC SERVICES PRO CEDURES Final Result * Cardiology Document Scan (12/12/2024 9:39 AM EXHAUST MACHINE OPERATOR) Anatomical Region Laterality Modality Other Dante Bucio MD CV CARDIAC SERVICES PROCEDURES F inal Result * Cardiology Document Scan (12/11/2024 8:11 AM EXHAUST MACHINE OPERATOR) Anatomical Region Laterality Modality Other us Gale Carlisle MD CV CARDIAC SERVICES PRO CEDURES Final Result * Cardiology Document Scan (12/11/2024) Anatomical Region Laterality Modality Other Gale Carlisle MD CV CARDIAC SERVICES PRO CEDURES Final Result from Last 3 Months Insurance ANTHEM ACCESS CHOICE ANTHEM ACCESS CHOICE Care Teams Roto Gravure Press Operator Relationship Specialty Start Date End Date Violet Maynard PA PCP - General Wood Block Artist 06/10/21
--- OUTSIDE RECORDS SUMMARY | 2025-02-13 09:40 | XMS_ITS | Encounter Summary ---
Author Organization [facility] Address [facility] [place] [address] Care Team Providers Care Caretaker Resort Name Role Phone Vidya Varela Primary Care Provider Encounter Details Date Type Department Care Team (Late st Contact Info) Description 02/03/2025 Telephone [facility] Family & Internal Medicine [facility] [address] [place] [address] Vidya Varela APNP [address] [place], [place] [id number] Social History Tobacco Use Types Packs/Day Years Used Date Smoking Tobacco: Every Day Cigarettes 2 35.9 Started: 03/19/1989 Smokeless Tobacco: Never 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 Alcohol Use Standard Drinks/Week Comments Yes [...] Sex Assigned at Male 01/22/2025 8:11 AM LINTER OPERATOR Legal Sex Male 1:03 PM LINTER OPERATOR Gender Identity Not on file Sexual Orientation Not on file documented as of this encounter Plan of Treatment Upcoming Encounters Date Type Department Care Team (Late st Contact Info) Description 05/07/2025 8:20 AM CDT Office Visit [facility] Family & Internal Medicine - [address] [address] Vidya Varela APNP [address] [place] [address] documented as of this encounter Visit Diagnoses Not on filedocumented in this encounter Additional Health Concerns Assessment Noted Time PHQ-9 Depression Total Score: 0 03/19/20 8:36 AM CDT documented as of this encounter Care Teams Caretaker Resort Relationship Specialty Start Date End Date Vidya Varela APNP [address] [place] [id number] PCP - General NURSE PRACTITIONER 01/12/24 documented as of this encounter
--- NOTE | 2025-02-14 14:10 | WPDPFTINT ---
PFT Procedure Performed PFT Procedure Performed Spirometry with Pre/Post Bronchodilator Plethysmography (Lung Vol) Diffusing Cap (DLCO) Flow Vol Loop PFT Interpretation Lung volumes were measured with the body plethysmography method. The elevated RV could be due to air trapping. The remaining lung volumes are unremarkable. Spirometry showed diminished expiratory flow rates and a diminished FEV1 to FVC ratio 61%, consistent with obstructive airway disease. Following administration of a bronchodilator there was no significant increase in expiratory flow rates. Lung diffusion capacity is mildly reduced at 60% predicted. This diminished lung diffusion capacity coupled with a low alveolar volume and a normal DLCO/VA ratio indicates loss of alveolar capillary structure with loss of lung volume as seen in emphysema or interstitial lung disease. The flow-volume loop is consistent with obstructive airway disease. Impression: Mild obstructive airway disease with evidence of air trapping and no response to bronchodilators on this testing. Mild reduction in lung diffusion capacity.
== END 2025-02-13 09:18 | disposition home or self-care (01) ==
LOC: ANHPFT 09:18
PROVIDERS: PCP Registered Nurse; Visit Provider Registered Nurse
DX: J44.9 Chronic obstructive pulmonary disease, unspecified (principal); I10 Essential (primary) hypertension; R53.83 Other fatigue; R06.83 Snoring; R06.81 Apnea, not elsewhere classified
CPT/HCPCS: 94060; 94726; 94729